=== PATIENT | female | born 1930 | race Caucasian/White ===

== ENCOUNTER → 2016-10-01 | Emergency (ER) | payer OTHER ==
[2016-10-01 09:51] VITALS: BP 137/100; PULSE 89; TEMP 98.3; BMI 22.9
--- NOTE | 2016-10-01 10:35 | PDOC ---
History of Present Illness - General History Source: Patient Exam Limitations: No Limitations - History of Present Illness Initial Comments: 10/01/16 10:42 The patient is an 86 year old female, with a significant past medical history of COPD, asthma, cancer, dementia, GERD, bladder drop, hypertension, hyperlipidemia, depression/anxiety, hypothyroidism, and anemia who presents to the ED [facility] from [facility] for evaluation of shortness of breath. Upon evaluation, patient reports she presents to the ED, because oftoo much sex. She reports intermittent difficulty breathing and dyspnea on exertion. The patient reports her shortness of breath is part of her baseline. The patient denies any chest pain, diaphoresis, or palpitations. Patient is on 3.5 L of O2 in the ED. Patients b.p. in the ED is 137/118. The patient denies any fever, chills, cough, headache, or dizziness. The patient denies any changes in appetite. The patient denies any nausea, vomiting, diarrhea, constipation, or changes in urination patterns. The patient denies any recent travel or sick contacts. Allergies: Levofloxacin Past Surgical History: Lung surgery. Social History: Former smoker(quit 20 years ago). Denies alcohol or drug use. PCP: Dr. Mehta <Chio Iniguez - Last Filed: 10/01/16 12:33> - General History Source: Patient Exam Limitations: No Limitations <Regina Villagran - Last Filed: 10/04/16 08:15> - General Chief Complaint: Shortness of Breath Stated Complaint: SOB Time Seen by Provider: 10/01/16 09:47 Past History <Chio Iniguez - Last Filed: 10/01/16 12:33> - Past Medical History Anemia: No Asthma: Yes Cancer: Yes CVA: No COPD: Yes CHF: No Dementia: Yes GI Disorders: Yes (GERD) Disorders: Yes (BLADDER DROP) HTN: Yes Hypercholesterolemia: Yes 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, anxiety) Suicide Attempt (Hx): No Thyroid Disease: Yes (hypothyroid) - Surgical History Lung Surgery: Yes - Immunization History Td Vaccination: (unknown) Immunization Up to Date: Yes - Psycho/Social/Smoking Cessation Hx Anxiety: No Suicidal Ideation: No Smoking Status: No Smoking History: Unknown if ever smoked Years of Tobacco Use: 40 Have you smoked in the past 12 months: No Number of Cigarettes Smoked Daily: 0 If you are a former smoker, when did you quit?: 20 Cigars Per Day: 0 Information on smoking cessation initiated: No Hx Alcohol Use: No Drug/Substance Use Hx: No Substance Use Type: None Hx Substance Use Treatment: No <Regina Villagran - Last Filed: 10/04/16 08:15> - Past Medical History Allergies/Adverse Reactions: Allergies Allergy/AdvReac Type Severity Reaction Status Date / Time levofloxacin [From Levaquin] AdvReac Unknown Itching Verified 10/01/16 09:49 Home Medications: Ambulatory Orders Albuterol Sulfate [Proventil HFA Inhaler -] 1 - 2 inh PO QID PRN 04/05/16 Alprazolam [Xanax] 0.25 mg PO TID 04/05/16 Aspirin [ASA -] 81 mg PO DAILY 04/05/16 Atorvastatin Ca [Lipitor] 10 mg PO HS 04/05/16 Calcium Carbonate/Vitamin D3 [Oyster Shell 500-Vit D3 200 Tb] 1 each PO BID 10/16 Diltiazem HCl [Diltiazem 24Hr Cd] 240 mg PO DAILY 04/05/16 Docusate Sodium [Colace -] 200 mg PO DAILY 04/05/16 Donepezil HCl [Aricept -] 10 mg PO DAILY 04/05/16 Escitalopram Oxalate [Lexapro -] 10 mg PO DAILY 04/05/16 Fluticasone/Salmeterol [Advair 250-50 Diskus] 1 each IH BID 04/05/16 Gabapentin 300 mg PO BID 04/05/16 Levothyroxine [Synthroid -] 75 mcg PO DAILY 04/05/16 Loratadine [Claritin -] 10 mg PO DAILY 04/05/16 Memantine HCl [Namenda -] 10 mg PO BID 04/05/16 Mycophenolate Mofetil 500 mg PO DAILY 04/05/16 Olopatadine HCl [Pataday] 1 drop OP DAILY 04/05/16 Oxybutynin Chloride [Ditropan Xl] 5 mg PO DAILY 04/05/16 Prednisone 15 mg PO DAILY 04/05/16 Sennosides [Senna] 2 tab PO HS 04/05/16 Tiotropium [place] [Spiriva] 1 inh PO DAILY 04/05/16 Aa/Hydrolyzed Collagen, Whey [Lps Neutral Flavor Liquid] 30 ml PO DAILY Acetaminophen [Tylenol] 650 mg PO QID PRN 10/01/16 Multivitamin-Min/Iron/FA/Vit K [Multi-Day Plus Minerals Tablet] 1 each PO DAILY 10/01/16 Polyethylene Glycol 3350 [Gavilax] 17 gm PO DAILY 10/01/16 Review of Systems - Review of Systems Able to Perform ROS?: Yes Comments:: 10/01/16 10:42 GENERAL/CONSTITUTIONAL: No: fever, chills, weakness, loss of appetite. HEAD, EYES, EARS, NOSE AND THROAT: No: change in vision, ear pain, discharge, sore throat, throat swelling. CARDIOVASCULAR: No: chest pain, lightheadedness, palpitations, syncope RESPIRATORY: Yes:+shortness of breath,+dyspnea on exertion. No: cough, wheezing , hemoptysis, stridor. GASTROINTESTINAL: No: nausea, vomiting, abdominal cramping, diarrhea, rectal bleeding, constipation. GENITOURINARY: No: dysuria, hematuria, frequency, urgency, flank pain. MUSCULOSKELETAL: No: back pain, neck pain, joint pain, muscle swelling or pain SKIN AND BREASTS: No: lesions, pallor, rash or easy bruising. NEUROLOGIC: No: headache, vertigo, paresthesias, weakness ENDOCRINE: No: unexplained weight gain or loss HEMATOLOGIC/LYMPHATIC: No: anemia, easy bleeding, swelling nodes <Iniguez,Giomilsy - Last Filed: 10/01/16 12:33> *Physical Exam - Vital Signs Last Vital Signs Temp Pulse Resp BP Pulse Ox 98.3 F 89 18 137/100 100 10/01/16 09:49 10/01/16 09:49 10/01/16 09:49 10/01/16 09:49 10/01/16 09:49 - Physical Exam Comments: 10/01/16 10:42 GENERAL: The patient is in no acute distress. HEAD: Normal with no signs of trauma. EYES: PERRLA, EOMI, sclera anicteric, conjunctiva clear. ENT: Ears normal, nares patent, oropharynx clear without exudates. Moist mucous membranes. NECK: Normal range of motion, supple without lymphadenopathy, JVD, or masses. LUNGS: Breath sounds equal, clear to auscultation bilaterally. No wheezes, and no crackles. HEART:Regular rate and rhythm, normal S1 and S2 without murmur, rub or gallop. ABDOMEN: Soft, nontender, normoactive bowel sounds. No guarding, no rebound. EXTREMITIES: Normal range of motion, no edema. No clubbing or cyanosis. No erythema, or tenderness. NEUROLOGICAL: Cranial nerves II through XII grossly intact. Normal speech. No focal neurological deficits. MUSCULOSKELETAL: Back non-tender to palpation, no CVA tenderness SKIN: Warm, Dry, normal turgor, no rashes or lesions noted. <IniguezGiomilsy - Last Filed: 10/01/16 12:33> - Vital Signs Last Vital Signs Temp Pulse Resp BP Pulse Ox 98.3 F 89 18 137/100 100 10/01/16 09:49 10/01/16 09:49 10/01/16 09:49 10/01/16 09:49 10/01/16 09:49 <Regina Villagran - Last Filed: 10/04/16 08:15> Heart Score/ECG Review #1 ECG reviewed & interpreted by me at: 12:11 10/01/16 12:11 Twelve-lead EKG was performed and reviewed by me. There is normal sinus rhythm with a normal rate of 89bpm. The axis is normal. The intervals are normal - pr: 170ms, QRS:98ms, QTc:481ms. There are no ST or T wave abnormalities. PAC <Regina Villagran - Last Filed: 10/04/16 08:15> ED Treatment Course - LABORATORY CBC & Chemistry Diagram: 10/01/16 10:05 10/01/16 10:05 - ADDITIONAL ORDERS Additional order review: Laboratory Results 10/01/16 10:35 Puncture Site Right radial ABG pH 7.45 ABG pCO2 at Pt Temp 46.9 H ABG pO2 at Pt Temp 146.0 H D ABG HCO3 31.7 H ABG O2 Sat (Measured) 99.5 H ABG O2 Content 18.6 ABG Base Excess 7.0 H Ricardo Test Positive O2 Delivery Device Nasal o2 Oxygen Flow Rate 4l - RADIOLOGY Radiograph Interpretation: 10/01/16 12:33 EXAM: CXR INTERPRETED BY: Dr. Abraham REVIEWED BY: Dr. Villagran IMPRESSION: Improvement. Better aeration than prior study. If symptoms persist, further imaging with CT may be of help. <Chio Iniguez - Last Filed: 10/01/16 12:33> - LABORATORY CBC & Chemistry Diagram: 10/01/16 10:05 10/01/16 10:05 - RADIOLOGY Radiology Studies Ordered: Category Date Time Status CHEST X-RAY PORTABLE* [RAD] Stat Radiology 10/01/16 09:49 Ordered <Regina Villagran - Last Filed: 10/04/16 08:15> Medical Decision Making - Medical Decision Making 10/01/16 10:34 A portion of this note was documented by scribe services under my direction. I have reviewed the details of the note, within reason, and agree with the documentation with the following case summary and management plan written by me. Nursing documentation reviewed and incorporated into medical decision making This is an 86 yo F h/o COPD on O2, [place] Granulomatosis, Lymphoma, Lung Cancer, Hypothyroidism, HLD, HTN, who was sent from [facility] Pt states nothing happened today but she was sent to the ER Pt states she feels at her baseline She denies chest pain She has shortness of breath but it is not worse than what she typically feels No fevers or chills NO cough Will do labs, cxr 10/01/16 11:21 Laboratory Tests 10/01/16 10/01/16 10:05 10:35 WBC 9.8 D Hgb 13.6 D Hct 40.8 Plt Count 211 Neutrophils % 62.8 D Lymphocytes % 24.1 D ABG pH 7.45 ABG pCO2 at Pt Temp 46.9 H ABG pO2 at Pt Temp 146.0 H D ABG HCO3 31.7 H ABG O2 Sat (Measured) 99.5 H Laboratory Tests 10/01/16 10/01/16 10:05 10:05 Sodium 144 Potassium 3.0 L Chloride 101 Carbon Dioxide 34 H BUN 16 D Creatinine 0.7 Random Glucose 79 D Lactic Acid 0.771 Creatine Kinase 133 Troponin I < 0.02 10/01/16 12:12 CXR: no acute pathology noted Pt has no 10/01/16 12:21 Pt will be discharged back to home Follow up with Dr Mehta Return to the ER for any other concerns or complaints 10/01/16 12:23 <Regina Villagran - Last Filed: 10/04/16 08:15> *DC/Admit/Observation/Transfer - Attestations Scribe Attestion: 10/01/16 10:43 Documentation prepared by Chio Iniguez, acting as medical or surgical instrument maker for Regina Villagran MD. <Chio Iniguez - Last Filed: 10/01/16 12:33> - Discharge Dispostion Admit: No <Regina Villagran - Last Filed: 10/04/16 08:15> Diagnosis at time of Disposition: COPD (chronic obstructive pulmonary disease) Qualifiers: COPD type: unspecified COPD Qualified Code(s): J44.9 - Chronic obstructive pulmonary disease, unspecified - Discharge Dispostion Disposition: [facility] Condition at time of disposition: Good - Referrals Referrals: Kurt Mehta MD [Staff Physician] - - Patient Instructions Printed Discharge Instructions: Chronic Obstructive Pulmonary Disease, DI for Chronic Obstructive Pulmonary Disease Additional Instructions: Ms. Carter Thank you for coming in to the ER today Please return to the ER with any other concerns or complaints Please continue to take medications as prescribed
[2016-10-01 10:36] LABS: ARTERIAL BLD GAS O2 SATURATION 99.5 % (90-98.9); ARTERIAL BLOOD GAS pH 7.45 (7.35-7.45)
[2016-10-01 10:37] LABS: ALLENS TEST POSITIVE; ART PUNCT SITE RIGHT RADIAL; LPM/O2% 4L; PT. ON O2? YES; TYPE OF O2 NASAL O2
[2016-10-01 10:39] LABS: ARTERIAL BLOOD GAS HCO3 31.7 meq/L (22-26)
[2016-10-01 10:42] LABS: BASOPHIL 0.4 % (0-2.0); EOSINOPHIL 2.4 % (0-4.5); MCH 32.5 pg (25.7-33.7); MCHC 33.3 g/dl (32.0-36.0); MEAN CELL VOLUME 97.7 fl (80-96); MEAN PLT VOLUME 8.6 fl (7.5-11.1); NEUTROPHILS 62.8 % (42.8-82.8); PLATELET COUNT 211 K/MM3 (134-434); WHITE BLOOD COUNT 9.8 K/mm3 (4.0-10.0)
[2016-10-01 11:17] LABS: ALBUMIN 3.3 g/dl (3.4-5.0); ANION GAP 9 (8-16); CALCIUM 8.8 mg/dL (8.5-10.1); CO2 34 mmol/L (21-32); GLUCOSE,RANDOM 79 mg/dL (74-106)
[2016-10-01 11:24] LABS: ALK PHOS 62 U/L (45-117); BILIRUBIN,TOTAL 0.5 mg/dL (0.2-1.0); CREATININE 0.7 mg/dL (0.55-1.02); SGOT/AST 23 U/L (15-37); SGPT/ALT 33 U/L (12-78); TOT PROT 6.2 g/dl (6.4-8.2); TROPONIN I < 0.02 ng/ml (0.00-0.05)
--- NOTE | 2016-10-01 12:19 | EKG ---
Test Reason : Blood Pressure : / mmHG Vent. Rate : 089 BPM Atrial Rate : 089 BPM P-R Int : 170 ms QRS Dur : 098 ms QT Int : 396 ms P-R-T Axes : 049 026 025 degrees QTc Int : 481 ms POOR DATA QUALITY, INTERPRETATION MAY BE ADVERSELY AFFECTED SINUS RHYTHM WITH PREMATURE ATRIAL COMPLEXES OTHERWISE NORMAL ECG WHEN COMPARED WITH ECG OF 05-APR-2016 01:44, PREMATURE ATRIAL COMPLEXES ARE NOW PRESENT T WAVE INVERSION LESS EVIDENT IN ANTERIOR LEADS Confirmed by KATIANA HONEYCUTT MD ([id number]) on 10/01/2016 12:18:28 PM Referred By: Confirmed By:KATIANA HONEYCUTT MD
== END ==
LOC: JER 09:36
DX: J44.9 Chronic obstructive pulmonary disease, unspecified (principal); J45.909 Unspecified asthma, uncomplicated; I10 Essential (primary) hypertension; F03.90 Unspecified dementia, unspecified severity, without behavioral disturbance, psychotic disturbance, mood disturbance, and anxiety; K21.9 Gastro-esophageal reflux disease without esophagitis; F41.8 Other specified anxiety disorders; E03.9 Hypothyroidism, unspecified
CPT/HCPCS: 36415; 36600; 71010-TC; 80053; 82550; 82803; 83605; 84484; 85025; 87040; 93005; 93010; 99283-25

== ENCOUNTER 2016-12-24 20:29 | Inpatient (IN) | payer OTHER ==
--- NOTE | 2016-12-24 20:44 | PDOC ---
History of Present Illness - General History Source: Patient Exam Limitations: No Limitations - History of Present Illness Initial Comments: 12/24/16 20:58 The patient is a 86 year old female with a significant past medical history of COPD (on home oxygen), asthma, cancer, dementia, GERD, bladder drop, HTN, HLD, depression/anxiety, hypothyroidism, and anemia who presents to the ED [facility] from [facility] for evaluation of shortness of breath for several days. Upon evaluation to the ED patient reports she came into the ED because of too much sex. Patient also reports she cannot breath and denies a cough. Patient states she was put on steroids over a month ago for similar symptoms. Denies fever or chills. Denies chest pain. Denies abdominal pain, nausea, vomiting, or diarrhea. Denies any other symptoms. Company Marker: Dr. Corona PMD: Dr. Mehta <Dhruv Browning - Last Filed: 12/25/16 00:17> <Kieran Garcia - Last Filed: 12/25/16 01:28> - General Stated Complaint: SOB Time Seen by Provider: 12/24/16 20:41 Past History <Dhruv Browning - Last Filed: 12/25/16 00:17> - Past Medical History Anemia: No Asthma: Yes Cancer: Yes CVA: No COPD: Yes CHF: No Dementia: Yes GI Disorders: Yes (GERD) Disorders: Yes (BLADDER DROP) HTN: Yes Hypercholesterolemia: Yes 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, anxiety) Suicide Attempt (Hx): No Thyroid Disease: Yes (hypothyroid) - Surgical History Lung Surgery: Yes - Immunization History Td Vaccination: (unknown) Immunization Up to Date: Yes - Psycho/Social/Smoking Cessation Hx Anxiety: No Suicidal Ideation: No Smoking Status: No Smoking History: Unknown if ever smoked Years of Tobacco Use: 40 Have you smoked in the past 12 months: No Number of Cigarettes Smoked Daily: 0 If you are a former smoker, when did you quit?: 20 Cigars Per Day: 0 Hx Alcohol Use: No Drug/Substance Use Hx: No Substance Use Type: None Hx Substance Use Treatment: No <Kieran Garcia - Last Filed: 12/25/16 01:28> - Past Medical History Allergies/Adverse Reactions: Allergies Allergy/AdvReac Type Severity Reaction Status Date / Time levofloxacin [From Levaquin] AdvReac Unknown Itching Verified 12/24/16 22:36 Home Medications: Ambulatory Orders Albuterol Sulfate [Proventil HFA Inhaler -] 1 - 2 inh PO QID PRN 04/05/16 Alprazolam [Xanax] 0.25 mg PO TID 04/05/16 Aspirin [ASA -] 81 mg PO DAILY 04/05/16 Atorvastatin Ca [Lipitor] 10 mg PO HS 04/05/16 Calcium Carbonate/Vitamin D3 [Oyster Shell 500-Vit D3 200 Tb] 1 each PO BID 10/16 Diltiazem HCl [Diltiazem 24Hr Cd] 240 mg PO DAILY 04/05/16 Docusate Sodium [Colace -] 200 mg PO DAILY 04/05/16 Donepezil HCl [Aricept -] 10 mg PO DAILY 04/05/16 Escitalopram Oxalate [Lexapro -] 10 mg PO DAILY 04/05/16 Fluticasone/Salmeterol [Advair 250-50 Diskus] 1 each IH BID 04/05/16 Gabapentin 300 mg PO BID 04/05/16 Levothyroxine [Synthroid -] 75 mcg PO DAILY 04/05/16 Loratadine [Claritin -] 10 mg PO DAILY 04/05/16 Memantine HCl [Namenda -] 10 mg PO BID 04/05/16 Mycophenolate Mofetil 500 mg PO DAILY 04/05/16 Olopatadine HCl [Pataday] 1 drop OP DAILY 04/05/16 Oxybutynin Chloride [Ditropan Xl] 5 mg PO DAILY 04/05/16 Prednisone 15 mg PO DAILY 04/05/16 Sennosides [Senna] 2 tab PO HS 04/05/16 Tiotropium [place] [Spiriva] 1 inh PO DAILY 04/05/16 Aa/Hydrolyzed Collagen, Whey [Lps Neutral Flavor Liquid] 30 ml PO DAILY Acetaminophen [Tylenol] 650 mg PO QID PRN 10/01/16 Multivitamin-Min/Iron/FA/Vit K [Multi-Day Plus Minerals Tablet] 1 each PO DAILY 10/01/16 Polyethylene Glycol 3350 [Gavilax] 17 gm PO DAILY 10/01/16 Review of Systems - Review of Systems Able to Perform ROS?: Yes Comments:: 12/24/16 20:59 GENERAL/CONSTITUTIONAL: No fever or chills. No weakness. HEAD, EYES, EARS, NOSE AND THROAT: No change in vision. No ear pain or discharge. No sore throat. CARDIOVASCULAR: No chest pain or shortness of breath. RESPIRATORY: + shortness of breath. No cough, wheezing, or hemoptysis. GASTROINTESTINAL: No nausea, vomiting, diarrhea or constipation. GENITOURINARY: No dysuria, frequency, or change in urination. MUSCULOSKELETAL: No joint or muscle swelling or pain. No neck or back pain. SKIN: No rash NEUROLOGIC: No headache, vertigo, loss of consciousness, or change in strength/ sensation. ENDOCRINE: No increased thirst. No abnormal weight change. HEMATOLOGIC/LYMPHATIC: No anemia, easy bleeding, or history of blood clots. ALLERGIC/IMMUNOLOGIC: No hives or skin allergy. All Other Systems: Reviewed and Negative <Dhruv Browning - Last Filed: 12/25/16 00:17> *Physical Exam - Vital Signs Last Vital Signs Temp Pulse Resp BP Pulse Ox 98.2 F 87 17 132/82 100 12/24/16 20:42 12/24/16 20:42 12/24/16 20:42 12/24/16 20:42 12/24/16 20:42 - Physical Exam Comments: 12/24/16 20:59 GENERAL: Awake, alert, and fully oriented, in no acute distress HEAD: No signs of trauma EYES: PERRLA, EOMI, sclera anicteric, conjunctiva clear ENT: Auricles normal inspection, hearing grossly normal, nares patent, oropharynx clear without exudates. Moist mucosa NECK: Normal ROM, supple, no lymphadenopathy, JVD, or masses LUNGS: + really coarse rhonchi posteriorly in all lung escobar, anteriorly normal breath sounds. No conversational dyspnea, comfortable appearing. Does not appear to have shortness of breath upon evaluation but does present with a loose cough. HEART: Regular rate and rhythm, normal S1 and S2, no murmurs, rubs or gallops ABDOMEN: Soft, nontender, normoactive bowel sounds. No guarding, no rebound. No masses EXTREMITIES: Normal range of motion, no edema. No clubbing or cyanosis. No cords, erythema, or tenderness NEUROLOGICAL: Normal speech SKIN: Warm, Dry, normal turgor, no rashes or lesions noted. <NallelySeancara - Last Filed: 12/25/16 00:17> Heart Score/ECG Review #1 12/25/16 00:18 Sinus rhythm with premature atrial complexes Otherwise normal ECG Vent rate 85 bpm MT interval 190 ms Normal axes Reviewed and Interpreted by: Dr. Garcia <Browning,Seancara - Last Filed: 12/25/16 00:17> ED Treatment Course - LABORATORY CBC & Chemistry Diagram: 12/24/16 21:35 12/24/16 21:35 <NallelySeancara - Last Filed: 12/25/16 00:17> - LABORATORY CBC & Chemistry Diagram: 12/24/16 21:35 12/24/16 21:35 <Kieran Garcia - Last Filed: 12/25/16 01:28> Medical Decision Making - Medical Decision Making 12/24/16 22:47 Chest X-ray showed Left lower lobe and right lower lobe pneumonia . will be given IV antibiotics, and will be admitted to the hospital. Case discussed with Dr. Moss at 22:45. <NallelyElpidiomaría - Last Filed: 12/25/16 00:17> *DC/Admit/Observation/Transfer - Attestations Scribe Attestion: 12/24/16 20:59 Documentation prepared by Dhruv Browning, acting as biomedical engineering aide for Kieran Garcia MD <Browning,Seancara - Last Filed: 12/25/16 00:17> - Discharge Dispostion Admit: Yes - Attestations Physician Attestion: 12/24/16 20:44 I, Dr. Kieran Garcia, attest that this document has been prepared under my direction and personally reviewed by me in its entirety. I further attest, that it accurately reflects all work, treatment, procedures and medical decision -making performed by me. <Kieran Garcia - Last Filed: 12/25/16 01:28> Diagnosis at time of Disposition: COPD with acute exacerbation Right lower lobe pneumonia Qualifiers: Pneumonia type: due to unspecified organism Qualified Code(s): J18.1 - Lobar pneumonia, unspecified organism Left lower lobe pneumonia Qualifiers: Pneumonia type: aspiration pneumonia Aspiration pneumonia type: unspecified Qualified Code(s): J69.0 - Pneumonitis due to inhalation of food and vomit COPD (chronic obstructive pulmonary disease) Qualifiers: COPD type: COPD with acute exacerbation Qualified Code(s): J44.1 - Chronic obstructive pulmonary disease with (acute) exacerbation Dementia Qualifiers: Dementia type: Alzheimer's disease Alzheimer's disease onset: unspecified onset Dementia behavioral disturbance: without behavioral disturbance Qualified Code(s): G30.9 - Alzheimer's disease, unspecified; F02.80 - Dementia in other diseases classified elsewhere without behavioral disturbance - Discharge Dispostion Condition at time of disposition: Improved - Referrals Referrals: Kurt Mehta MD [Primary Care Provider] - - Patient Instructions
[2016-12-24] MEDS ORDERED: methylPREDNISolone NA SUCC 125 MG/2 ML VIAL IVPB ONE ×2 (20:56→22:58)
[2016-12-24] MEDS ORDERED: ALBUTEROL SO4 2.5/IPRATROPIUM 0.5 INH SOL 3 ML VIAL.NEB. NEB ONE ×2 (20:56→21:10)
[2016-12-24] MEDS ORDERED: ALBUTEROL SO4 0.083% IH SOL 2.5 MG/3 ML VIAL.NEB. NEB ONE ×2 (20:56→21:10)
[2016-12-24] MEDS ORDERED: methylPREDNISolone NA SUCC 125 MG/2 ML VIAL ONE (21:11)
[2016-12-24 21:51] LABS: BASOPHIL 0.3 % (0-2.0); EOSINOPHIL 0.1 % (0-4.5); MCH 31.3 pg (25.7-33.7); MCHC 32.6 g/dl (32.0-36.0); MEAN CELL VOLUME 95.9 fl (80-96); MEAN PLT VOLUME 8.7 fl (7.5-11.1); NEUTROPHILS 76.4 % (42.8-82.8); PLATELET COUNT 236 K/MM3 (134-434); RDW 14.3 % (11.6-15.6)
[2016-12-24 22:03] LABS: INR 0.98 (0.82-1.09); PROTHROMBIN TIME (PATIENT) 10.8 SEC (9.98-11.88)
[2016-12-24 22:13] LABS: ALBUMIN 3.4 g/dl (3.4-5.0); ANION GAP 6 (8-16); BILIRUBIN,TOTAL 0.3 mg/dL (0.2-1.0); CALCIUM 9.1 mg/dL (8.5-10.1); CO2 34 mmol/L (21-32); CREATININE 0.9 mg/dL (0.55-1.02); GLUCOSE,RANDOM 101 mg/dL (74-106); SGOT/AST 20 U/L (15-37); SGPT/ALT 26 U/L (12-78); TOT PROT 6.5 g/dl (6.4-8.2)
[2016-12-24 22:16] LABS: ALK PHOS 108 U/L (45-117); TROPONIN I < 0.02 ng/ml (0.00-0.05)
[2016-12-24] MEDS ORDERED: VANCOMYCIN 1 GRAM (PRE-DOCKED) 1,000 MG/250 ML BAG IVPB ONE (22:35)
[2016-12-24] MEDS ORDERED: PIPERACILLIN/TAZOB 3.375 GM/50 ML PRE-DOCKED IV ONE (22:35)
[2016-12-24] MEDS ORDERED: VANCOMYCIN 1 GRAM (PRE-DOCKED) 250 ML IVPB ONE (23:14)
[2016-12-24] MEDS ORDERED: PIPERACILLIN/TAZOB 3.375 GM 50 ML IVPB ONE (23:15)
--- NOTE | 2016-12-25 00:35 | HP ---
CHIEF COMPLAINT: SOB, "not feeling right" PCP: Dr. Mehta HISTORY OF PRESENT ILLNESS: 86 y/o F w/PMH of COPD (on home oxygen), asthma, lymphoma, dementia, GERD, bladder drop, HTN, HLD, depression/anxiety, hypothyroidism, and anemia presents to the ER via ambulance from [facility] for SOB. Pt states she just didn't feel right and had SOB today. She states there may have been sick contacts at the living facility. She denies cough, sputum production, [place], light-headedness, runny nose, facial pressure, sore throat, CP, abd pain, diarrhea, blood in stool, fevers, chills, nausea, vomiting, dysuria, blood in urine, recent travel. ER course was notable for: (1) solumedrol, duoneb, alb neb, vanc, zosyn (2) cxr (3) Recent Travel: denies PAST MEDICAL HISTORY: COPD (on home oxygen), asthma, lymphoma, dementia, GERD, bladder drop, HTN, HLD, depression/anxiety, hypothyroidism, and anemia PAST SURGICAL HISTORY: Lymph node resection (from lymphoma) Social History: Smoking: quit 45 years ago Alcohol: denies Drugs: denies Family History: Mother: Stomach ca Allergies levofloxacin [From Levaquin] Adverse Reaction (Unknown, Verified 12/24/16 22:36) Itching HOME MEDICATIONS: Home Medications Medication Instructions Recorded Albuterol Sulfate [Proventil HFA 1 - 2 inh PO QID PRN 04/05/16 Inhaler -] Alprazolam [Xanax] 0.25 mg PO TID 04/05/16 Aspirin [ASA -] 81 mg PO DAILY 04/05/16 Atorvastatin Ca [Lipitor] 10 mg PO HS 04/05/16 Calcium Carbonate/Vitamin D3 1 each PO BID 04/05/16 [Oyster Shell 500-Vit D3 200 Tb] Diltiazem HCl [Diltiazem 24Hr Cd] 240 mg PO DAILY 04/05/16 Docusate Sodium [Colace -] 200 mg PO DAILY 04/05/16 Donepezil HCl [Aricept -] 10 mg PO DAILY 04/05/16 Escitalopram Oxalate [Lexapro -] 10 mg PO DAILY 04/05/16 Fluticasone/Salmeterol [Advair 1 each IH BID 04/05/16 250-50 Diskus] Gabapentin 300 mg PO BID 04/05/16 Levothyroxine [Synthroid -] 75 mcg PO DAILY 04/05/16 Loratadine [Claritin -] 10 mg PO DAILY 04/05/16 Memantine HCl [Namenda -] 10 mg PO BID 04/05/16 Mycophenolate Mofetil 500 mg PO DAILY 04/05/16 Olopatadine HCl [Pataday] 1 drop OP DAILY 04/05/16 Oxybutynin Chloride [Ditropan Xl] 5 mg PO DAILY 04/05/16 Prednisone 15 mg PO DAILY 04/05/16 Sennosides [Senna] 2 tab PO HS 04/05/16 Tiotropium [place] [Spiriva] 1 inh PO DAILY 04/05/16 Aa/Hydrolyzed Collagen, Whey [Lps 30 ml PO DAILY 10/01/16 Neutral Flavor Liquid] Acetaminophen [Tylenol] 650 mg PO QID PRN 10/01/16 Multivitamin-Min/Iron/FA/Vit K 1 each PO DAILY 10/01/16 [Multi-Day Plus Minerals Tablet] Polyethylene Glycol 3350 [Gavilax] 17 gm PO DAILY 10/01/16 REVIEW OF SYSTEMS CONSTITUTIONAL: Absent: fever, chills, diaphoresis, generalized weakness HEENT: Absent: rhinorrhea, nasal congestion, throat pain, visual changes CARDIOVASCULAR: Absent: chest pain, syncope, palpitations, irregular heart rate, lightheadedness , peripheral edema RESPIRATORY: +SOB Absent: cough, dyspnea with exertion, orthopnea GASTROINTESTINAL: Absent: abdominal pain, nausea, vomiting, diarrhea, hematochezia GENITOURINARY: Absent: dysuria, frequency, hematuria MUSCULOSKELETAL: Absent: myalgia, arthralgia, joint swelling, back pain, neck pain NEUROLOGIC: Absent: headache, dizziness PHYSICAL EXAMINATION Vital Signs - 24 hr 12/24/16 12/24/16 20:40 20:42 Temperature 98.2 F Pulse Rate 100 H 87 Respiratory 17 Rate Blood Pressure 132/82 O2 Sat by Pulse 100 100 Oximetry (%) GENERAL: Awake, alert, and fully oriented, in no acute distress. HEAD: Normal with no signs of trauma. EYES: extraocular movements intact, sclera anicteric, conjunctiva clear. No lid lag. EARS, NOSE, THROAT: Ears normal, nares patent, oropharynx clear without exudates. Moist mucous membranes. Tongue midline. NECK: Normal range of motion, supple LUNGS: +R lung mid to lower lung escobar with coarse breath sounds. HEART: Regular rate and rhythm, normal S1 and S2. ABDOMEN: Soft, nontender, not distended, normoactive bowel sounds, no guarding, no rebound, no masses. No hepatomegaly or splenomegaly. MUSCULOSKELETAL: No CVA tenderness. LOWER EXTREMITIES: 2+ pulses, warm, well-perfused. No calf tenderness. No peripheral edema. NEUROLOGICAL: Normal speech. Steady gait with help (daughter helping her walk). PSYCHIATRIC: Cooperative. Good eye contact. Appropriate mood and affect. SKIN: Warm, dry Laboratory Results - last 24 hr 12/24/16 12/24/16 12/24/16 21:35 21:35 21:35 WBC 12.0 H RBC 4.05 Hgb 12.7 Hct 38.9 MCV 95.9 MCHC 32.6 RDW 14.3 Plt Count 236 MPV 8.7 Neutrophils % 76.4 D Lymphocytes % 14.4 D Monocytes % 8.8 Eosinophils % 0.1 D Basophils % 0.3 INR 0.98 Sodium 142 Potassium 3.6 Chloride 102 Carbon Dioxide 34 H Anion Gap 6 L BUN 21 H D Creatinine 0.9 D Creat Clearance w eGFR 59.09 Random Glucose 101 D Calcium 9.1 Total Bilirubin 0.3 D AST 20 ALT 26 D Alkaline Phosphatase 108 D Creatine Kinase 89 Troponin I < 0.02 B-Natriuretic Peptide 198.48 Total Protein 6.5 Albumin 3.4 Imaging: CXR: Right mid and lower lobe infiltrates suggestive of PNA; pending official report Active Medications Albuterol/Ipratropium (Duoneb -) 1 amp NEB Q6H PRN PRN Reason: SHORT OF BREATH/WHEEZING Aspirin (Asa -) 81 mg PO DAILY [place] Atorvastatin Calcium (Lipitor -) 10 mg PO HS [place] Diltiazem HCl (Cardizem Cd -) 240 mg PO DAILY BEVERLY Docusate Sodium (Colace -) 200 mg PO DAILY BEVER[place] Donepezil HCl (Aricept -) 10 mg PO DAILY BEVER[place] Escitalopram Oxalate (Lexapro -) 10 mg PO DAILY BEVER[place] Gabapentin (Neurontin -) 300 mg PO BID BEVERLY Ceftriaxone Sodium 1 gm/ (Dextrose) 100 mls @ 200 mls/hr IVPB DAILY BEVERLY Azithromycin 500 mg/ Dextrose 250 mls @ 250 mls/hr IVPB DAILY BEVER[facility] Levothyroxine Sodium (Synthroid -) 75 mcg PO DAILY BEVERLY Loratadine (Claritin -) 10 mg PO DAILY BEVER[place] Memantine (Namenda -) 10 mg PO BID BEVER[place] Mycophenolate Mofetil (Cellcept -) 500 mg PO DAILY BEVERLY Non-Formulary Medication (Fluticasone/Salmeterol [Advair 250-50 Diskus]) 1 each IH BID BEVERLY Prednisone (Deltasone -) 15 mg PO DAILY BEVER[facility] Tiotropium [place] (Spiriva -) 1 puff IH DAILY [facility] ASSESSMENT/PLAN: 86 y/o F w/PMH of COPD (on home oxygen), asthma, lymphoma, dementia, GERD, bladder drop, HTN, HLD, depression/anxiety, hypothyroidism, and anemia presents to the ER via ambulance from [facility] for SOB. Found to have R sided PNA on CXR. -Community acquired PNA in right middle/lower lobes -No IV Abx in the last 3 months -CURB65 score 2 -will order Ceftriaxone 1g IV qd and Azithromycin 500 mg IV qd -f/u SpCx, UAg for PNA, mycoplasma IgM -COPD/Asthma -given 125 mg IV solumedrol in ER -no wheezing at this time, will not continue IV steroids -continue with home dose of prednisone 15 mg po qd -c/w advair, spiriva, loratadine 10 mg po qd -duonebs q6h prn for sob -O2 supplementation to keep O2 sat >90 -Leukocytosis -secondary to PNA -f/u BCx, SpCx, UAg for PNA, UA -ceftriaxone 1g iv qd, azithromycin 500 mg iv qd -Hypothyroidism -c/w synthroid 75 mcg po qd -Dementia -c/w namenda 10 mg po bid, aricept 10 mg po qd -HTN -c/w diltiazem 240 mg po qd -CAD -c/w ASA 81 mg po qd, lipitor 10 mg po qhs -HLD -cw lipitor 10 mg po qhs -Depression/anxiety -c/w lexapro 10 mg po qd -DVT ppx -SCDs, ambulate early -FEN -no fluids for now -monitor electrolytes -Cardiac diet -Dispo: -admit to m/s Visit type - Emergency Visit Emergency Visit: Yes ED Registration Date: 12/24/16 Care time: The patient presented to the Emergency Department on the above date and was hospitalized for further evaluation of their emergent condition. - New Patient This patient is new to me today: Yes Date on this admission: 12/25/16 - Critical Care Critical Care patient: No
[2016-12-25] MEDS ORDERED: ALBUTEROL SO4 2.5/IPRATROPIUM 0.5 INH SOL 3 ML VIAL.NEB. NEB PRN (00:55)
[2016-12-25] MEDS ORDERED: GABAPENTIN 100 MG CAPSULE (FP) ONE (01:08)
[2016-12-25] MEDS: GABAPENTIN 300 MG CAPSULE (FP) PO SCH ×3 (01:11→22:26)
--- NOTE | 2016-12-25 01:29 | PN ---
Teaching Attending Note Name of Resident: Woody Segura ATTENDING PHYSICIAN STATEMENT I saw and evaluated the patient. I reviewed chart, imaging, data. I reviewed the resident's note and discussed the case with the resident. I agree with the resident's findings and plan as documented with modifications in attending note. HPI 86 year old female with a significant past medical history of COPD (on home oxygen), asthma, cancer, dementia, GERD, bladder drop, HTN, HLD, depression/ anxiety, hypothyroidism, and anemia presented to the ED BIBA from [facility] for evaluation of shortness of breath for several days. .Received vancomycin and pip/tazo in ER for pneumonia. No sick contacts. No Recent travels. Subjective Denied significant cough. SOB has improved since arrival to ER OBJECTIVE: Last Vital Signs Temp Pulse Resp BP Pulse Ox 98.5 F 90 17 137/85 100 12/25/16 01:13 12/25/16 01:13 12/25/16 01:13 12/25/16 01:13 12/25/16 01:13 GENERAL: Awake, alert, and oriented, answering questions, NAD HEAD: No signs of trauma, normocephalic EYES: PERRLA, sclera anicteric, conjunctiva clear, wears eye glasses NECK: supple, no lymphadenopathy LUNGS: + coarse rhonchi posteriorly in right lower and middle lobes on posterior auscultation. No apparent SOB. Speaks in full sentences. HEART: Regular rate and rhythm, normal S1 and S2, no murmurs, rubs or gallops ABDOMEN: Soft, nontender, normoactive bowel sounds. No guarding, no rebound. EXTREMITIES: Normal range of motion, no edema. No clubbing or cyanosis. No cords, erythema, or tenderness NEUROLOGICAL: Normal speech SKIN: Warm, Dry, normal turgor, no rashes or lesions noted. Laboratory Results - last 24 hr 12/24/16 12/24/16 12/24/16 21:35 21:35 21:35 WBC 12.0 H RBC 4.05 Hgb 12.7 Hct 38.9 MCV 95.9 MCHC 32.6 RDW 14.3 Plt Count 236 MPV 8.7 Neutrophils % 76.4 D Lymphocytes % 14.4 D Monocytes % 8.8 Eosinophils % 0.1 D Basophils % 0.3 INR 0.98 Sodium 142 Potassium 3.6 Chloride 102 Carbon Dioxide 34 H Anion Gap 6 L BUN 21 H D Creatinine 0.9 D Creat Clearance w eGFR 59.09 Random Glucose 101 D Calcium 9.1 Total Bilirubin 0.3 D AST 20 ALT 26 D Alkaline Phosphatase 108 D Creatine Kinase 89 Troponin I < 0.02 B-Natriuretic Peptide 198.48 Total Protein 6.5 Albumin 3.4 CXR reviewed- appears to have new infiltrates in right lower and middle lobes ASSESSMENT AND PLAN: #Community acquired PNA in an 86yo female with multiple medical problems. Evidence of right lower and middle lobe infiltrate on CXR along with shortness of breath, leukocytosis. Unlikely to be COPD exacerbation as patient is not wheezing and does not appear to have prolonged expiratory phase of breathing. CURB65 score is at least 2. Troponin is negative. Should r/o legionella and mycoplasma pneumonia. -admit to med/surg -send sputum culture -blood cultures x2 -urine legionella ag -sputum culture for legionella -mycoplasma IgM -ceftriaxone 1g IV daily -azithromycin 500mg IV daily -ID consult for antibiotic approval -supplemental oxygen via nasal cannula #Chronic medical problems -will restart on home medications, refer to resident note for details #DVT ppx -low risk -SCDs #Diet -Low sodium, heart-healthy diet
[2016-12-25 02:29] VITALS: BMI 24.1
[2016-12-25 02:48] LABS: URINE APPEARANCE CLEAR; URINE BILIRUBIN NEGATIVE (NEGATIVE); URINE COLOR YELLOW; URINE GLUCOSE (UA) 2+ (NEGATIVE); URINE KETONE NEGATIVE (NEGATIVE); URINE NITRITE NEGATIVE (NEGATIVE); URINE UROBILINOGEN NEGATIVE E.U./dl (0.2-1.0)
[2016-12-25 02:52] LABS: URINE BLOOD 1+ (NEGATIVE); URINE LEUK ESTERASE 1+ (NEGATIVE); URINE PROTEIN 1+ (NEGATIVE)
[2016-12-25 03:00] LABS: URINE BACTERIA FEW /hpf (NONE SEEN); URINE HYALINE CAST 1 /lpf; URINE MUCUS RARE; URINE RBC 12 /hpf (0-3); URINE WBC 17 /hpf (3-5)
[2016-12-25] MEDS: LEVOTHYROXINE NA 75 MCG TABLET (FP) PO SCH (06:17)
[2016-12-25 09:02] LABS: BASOPHIL 0.1 % (0-2.0); MCH 31.7 pg (25.7-33.7); MEAN CELL VOLUME 96.1 fl (80-96); MEAN PLT VOLUME 8.5 fl (7.5-11.1); NEUTROPHILS 89.5 % (42.8-82.8); PLATELET COUNT 253 K/MM3 (134-434); RDW 14.3 % (11.6-15.6); WHITE BLOOD COUNT 11.1 K/mm3 (4.0-10.0)
[2016-12-25 09:15] LABS: ANION GAP 9 (8-16); CALCIUM 9.3 mg/dL (8.5-10.1); CO2 33 mmol/L (21-32); CREATININE 1.1 mg/dL (0.55-1.02); GLUCOSE,RANDOM 152 mg/dL (74-106)
[2016-12-25] MEDS ORDERED: PT OWN MED DRAWER 7, Y5N ONE ×4 (09:39→22:30)
[2016-12-25] MEDS: MEMANTINE HCL 10 MG TABLET (FP) PO SCH ×2 (09:43→22:25)
[2016-12-25] MEDS: LORATADINE 10 MG TABLET PO SCH (09:43)
[2016-12-25] MEDS: ASPIRIN 81 MG CHEWABLE TABLETS PO SCH (09:43)
[2016-12-25] MEDS: ESCITALOPRAM OXALATE 10 MG TABLET (FP) PO SCH (09:44)
[2016-12-25] MEDS: DOCUSATE SODIUM 100 MG CAPSULE (FP) PO SCH (09:44)
[2016-12-25] MEDS: DONEPEZIL HCL 10 MG TABLET (FP) PO SCH (09:44)
[2016-12-25] MEDS: CEFTRIAXONE 50 ML IVPB SCH (09:50)
[2016-12-25] MEDS ORDERED: predniSONE 5 MG TABLET (UD) PO SCH (10:00)
[2016-12-25] MEDS: AZITHROMYCIN IVPB 250 ML IVPB SCH (10:08)
[2016-12-25] MEDS: MYCOPHENOLATE MOFETIL 500 MG TABLET PO SCH (11:00)
[2016-12-25] MEDS: BUDESONIDE/FORMETEROL FUMARATE 80/4.5 mcg INHALER IH SCH ×2 (11:00→22:26)
[2016-12-25] MEDS: ACLIDINIUM BROMIDE 400 MCG/INH AERO.POWD IH SCH ×2 (11:01→22:33)
--- NOTE | 2016-12-25 12:14 | PN ---
Progress Note (short form) - Note Progress Note: Patient seen and examined as a follow up No acute events Denies SOB and reports improvement NO wheezing will continue current management Visit type - Emergency Visit Emergency Visit: Yes ED Registration Date: 12/24/16 Care time: The patient presented to the Emergency Department on the above date and was hospitalized for further evaluation of their emergent condition. - New Patient This patient is new to me today: Yes Date on this admission: 12/25/16 - Critical Care Critical Care patient: No - Discharge Referral Referred to [facility] Med P.C.: No
--- NOTE | 2016-12-25 13:54 | CON.PULM ---
Consult Consult Specialty:: PULM/CCM Referred by:: MARJORIE Reason for Consultation:: SOB - History of Present Illness Chief Complaint: SOB History of Present Illness: 86 F, COPD on home oxygen, asthma, lymphoma, dementia, GERD, bladder issues, HTN , HLD, depression/anxiety, hypothyroidism, and anemia. Multiple admissions for AE of COPD. Sent from [facility] for worsening SOB. (+) increased cough and mucous production. No travel history. No apparent sick contact. 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: Dementia Cardio/Vascular: Yes: Pulmonary Hypertension, HTN, Hyperlipdemia Pulmonary: Yes: COPD, O2 Dependent Psych: Yes: Anxiety, Panic Musculoskeletal: Yes: Other (h/o of foot drop) - Past Surgical History Past Surgical History: Yes: Thoracotomy - Alcohol/Substance Use Hx Alcohol Use: No - Smoking History Smoking history: Former smoker Have you smoked in the past 12 months: No Aproximately how many cigarettes per day: 0 If you are a former smoker, when did you quit?: 45 years ago - Social History Usual Living Arrangement: Assisted Living Home Medications - Allergies Allergies/Adverse Reactions: Allergies Allergy/AdvReac Type Severity Reaction Status Date / Time levofloxacin [From Levaquin] AdvReac Unknown Itching Verified 12/24/16 22:36 - Home Medications Home Medications: Ambulatory Orders Albuterol Sulfate [Proventil HFA Inhaler -] 1 - 2 inh PO QID PRN 04/05/16 Alprazolam [Xanax] 0.25 mg PO TID 04/05/16 Aspirin [ASA -] 81 mg PO DAILY 04/05/16 Atorvastatin Ca [Lipitor] 10 mg PO HS 04/05/16 Calcium Carbonate/Vitamin D3 [Oyster Shell 500-Vit D3 200 Tb] 1 each PO BID 10/16 Diltiazem HCl [Diltiazem 24Hr Cd] 240 mg PO DAILY 04/05/16 Docusate Sodium [Colace -] 200 mg PO DAILY 04/05/16 Donepezil HCl [Aricept -] 10 mg PO DAILY 04/05/16 Escitalopram Oxalate [Lexapro -] 10 mg PO DAILY 04/05/16 Fluticasone/Salmeterol [Advair 250-50 Diskus] 1 each IH BID 04/05/16 Gabapentin 300 mg PO BID 04/05/16 Levothyroxine [Synthroid -] 75 mcg PO DAILY 04/05/16 Loratadine [Claritin -] 10 mg PO DAILY 04/05/16 Memantine HCl [Namenda -] 10 mg PO BID 04/05/16 Mycophenolate Mofetil 500 mg PO DAILY 04/05/16 Olopatadine HCl [Pataday] 1 drop OP DAILY 04/05/16 Oxybutynin Chloride [Ditropan Xl] 5 mg PO DAILY 04/05/16 Prednisone 15 mg PO DAILY 04/05/16 Sennosides [Senna] 2 tab PO HS 04/05/16 Tiotropium [place] [Spiriva] 1 inh PO DAILY 04/05/16 Aa/Hydrolyzed Collagen, Whey [Lps Neutral Flavor Liquid] 30 ml PO DAILY Acetaminophen [Tylenol] 650 mg PO QID PRN 10/01/16 Multivitamin-Min/Iron/FA/Vit K [Multi-Day Plus Minerals Tablet] 1 each PO DAILY 10/01/16 Polyethylene Glycol 3350 [Gavilax] 17 gm PO DAILY 10/01/16 Family Disease History - Family Disease History Family Disease History: Heart Disease: Father, Sister Review of Systems - Review of Systems Constitutional: reports: Malaise, Weakness. denies: Chills, Fever, Night Sweats Eyes: reports: No Symptoms HENT: reports: No Symptoms Neck: reports: No Symptoms Cardiovascular: reports: Shortness of Breath. denies: Chest Pain, Edema, Palpitations Respiratory: reports: Cough. denies: Hemoptysis, SOB, SOB on Exertion, Wheezing Gastrointestinal: reports: No Symptoms Genitourinary: reports: No Symptoms Breasts: reports: No Symptoms Reported Musculoskeletal: reports: No Symptoms Integumentary: reports: No Symptoms Neurological: reports: No Symptoms Endocrine: reports: No Symptoms Hematology/Lymphatic: reports: No Symptoms Psychiatric: reports: No Symptoms Physical Exam Vital Sings: Vital Signs Temperature 97.8 F 12/25/16 10:12 Pulse Rate 89 12/25/16 10:12 Respiratory Rate 20 12/25/16 10:12 Blood Pressure 150/84 12/25/16 10:12 O2 Sat by Pulse Oximetry (%) 98 12/25/16 09:00 Constitutional: Yes: No Distress, Calm Eyes: Yes: Conjunctiva Clear, EOM Intact HENT: Yes: Atraumatic, Normocephalic Neck: Yes: Supple, Trachea Midline Cardiovascular: Yes: Regular Rate and Rhythm Respiratory: Yes: On Nasal O2, Rhonchi, Wheezes. No: Accessory Muscle Use, Rales, Stridor, Tachypnea ...Inspection: Yes: WNL ...Clubbing: No Gastrointestinal: Yes: Normal Bowel Sounds, Soft Renal/: Yes: WNL Musculoskeletal: Yes: WNL Extremities: Yes: WNL Edema: No Peripheral Pulses WNL: Yes Integumentary: Yes: WNL Neurological: Yes: Alert, Oriented ...Motor Strength: WNL Psychiatric: Yes: Alert Labs: CBC, BMP 12/25/16 08:00 12/25/16 08:00 Imaging - Results Chest X-ray: Report Reviewed, Image Reviewed Problem List - Problems (1) Anxiety Code(s): F41.9 - ANXIETY DISORDER, UNSPECIFIED (2) COPD with acute exacerbation Code(s): J44.1 - CHRONIC OBSTRUCTIVE PULMONARY DISEASE W (ACUTE) EXACERBATION (3) Dementia Code(s): F03.90 - UNSPECIFIED DEMENTIA WITHOUT BEHAVIORAL DISTURBANCE Qualifiers: Dementia type: Alzheimer's disease Alzheimer's disease onset: unspecified onset Dementia behavioral disturbance: without behavioral disturbance Qualified Code(s): G30.9 - Alzheimer's disease, unspecified; F02.80 - Dementia in other diseases classified elsewhere without behavioral disturbance (4) Right lower lobe pneumonia Code(s): J18.1 - LOBAR PNEUMONIA, UNSPECIFIED ORGANISM Qualifiers: Pneumonia type: due to unspecified organism Qualified Code(s): J18.1 - Lobar pneumonia, unspecified organism (5) Bronchospasm Code(s): J98.01 - ACUTE BRONCHOSPASM (6) Chronic bronchitis with acute exacerbation Code(s): J20.9 - ACUTE BRONCHITIS, UNSPECIFIED J42 - UNSPECIFIED CHRONIC BRONCHITIS (7) Coughing Code(s): R05 - COUGH (8) Hypercholesteremia Code(s): E78.0 - PURE HYPERCHOLESTEROLEMIA * DO NOT USE * (9) Hypertension Code(s): I10 - ESSENTIAL (PRIMARY) HYPERTENSION (10) Shortness of breath Code(s): R06.02 - SHORTNESS OF BREATH Assessment/Plan Agree with ABX coverge Pending Micro studies O2 as needed Increase Prednisone BD TX Check sputum VTE prophylaxis Change DuoNeb to Albuterol PRN since the patient is on LAMA Will follow Thank you. Dr Moss
[2016-12-25] MEDS ORDERED: ALBUTEROL SO4 0.083% IH SOL 2.5 MG/3 ML VIAL.NEB. NEB PRN (15:06)
--- NOTE | 2016-12-25 21:05 | EKG ---
Test Reason : Blood Pressure : / mmHG Vent. Rate : 085 BPM Atrial Rate : 085 BPM P-R Int : 180 ms QRS Dur : 092 ms QT Int : 370 ms P-R-T Axes : 073 020 033 degrees QTc Int : 440 ms SINUS RHYTHM WITH PREMATURE ATRIAL COMPLEXES OTHERWISE NORMAL ECG WHEN COMPARED WITH ECG OF 01-OCT-2016 10:39, NO SIGNIFICANT CHANGE WAS FOUND Confirmed by JESSICA WRAY MD ([id number]) on 12/25/2016 9:05:21 PM Referred By: Confirmed By:JESSICA WRAY MD
[2016-12-25] MEDS: ATORVASTATIN CA 10 MG TABLET (FP) PO SCH (22:25)
[2016-12-26] MEDS: LEVOTHYROXINE NA 75 MCG TABLET (FP) PO SCH (06:11)
[2016-12-26] MEDS ORDERED: PT OWN MED DRAWER 7, Y5N ONE ×2 (10:00→20:21)
[2016-12-26] MEDS: DONEPEZIL HCL 10 MG TABLET (FP) PO SCH (10:27)
[2016-12-26] MEDS: GABAPENTIN 300 MG CAPSULE (FP) PO SCH ×2 (10:27→22:19)
[2016-12-26] MEDS: ASPIRIN 81 MG CHEWABLE TABLETS PO SCH (10:27)
[2016-12-26] MEDS: ESCITALOPRAM OXALATE 10 MG TABLET (FP) PO SCH (10:27)
[2016-12-26] MEDS: MEMANTINE HCL 10 MG TABLET (FP) PO SCH ×2 (10:27→22:19)
[2016-12-26] MEDS: DOCUSATE SODIUM 100 MG CAPSULE (FP) PO SCH (10:27)
[2016-12-26] MEDS: LORATADINE 10 MG TABLET PO SCH (10:27)
[2016-12-26] MEDS: predniSONE 5 MG TABLET (UD) PO SCH (10:28)
[2016-12-26] MEDS: MYCOPHENOLATE MOFETIL 500 MG TABLET PO SCH (10:28)
[2016-12-26] MEDS: CEFTRIAXONE 50 ML IVPB SCH (10:28)
[2016-12-26] MEDS: BUDESONIDE/FORMETEROL FUMARATE 80/4.5 mcg INHALER IH SCH ×2 (11:06→22:20)
[2016-12-26] MEDS: AZITHROMYCIN IVPB 250 ML IVPB SCH (11:06)
[2016-12-26] MEDS: ACLIDINIUM BROMIDE 400 MCG/INH AERO.POWD IH SCH ×2 (11:06→22:20)
--- NOTE | 2016-12-26 11:59 | PN ---
Physical Exam: SUBJECTIVE: Patient seen and examined at bedside this AM. AAO and at mental status baseline. Able to ambulate to bathroom without difficulty. States breathing is improved and almost at baseline. Afebrile overnight with no acute events noted in chart. OBJECTIVE: Vital Signs Period Temp Pulse Resp BP Sys/[place] Pulse Ox Last 24 Hr 98.0 F-99.0 F 75-91 20-22 136-150/49-81 98 GENERAL: Awake, alert, and fully oriented, in no acute distress. HEAD: Normal with no signs of trauma. EYES: extraocular movements intact, sclera anicteric, conjunctiva clear. No lid lag. EARS, NOSE, THROAT: Ears normal, nares patent, oropharynx clear without exudates. Moist mucous membranes. Tongue midline. NECK: Normal range of motion, supple LUNGS: Mildly coarse breath sounds with mild wheezes noted on right lower 1/3 lung field. HEART: Regular rate and rhythm, normal S1 and S2. ABDOMEN: Soft, nontender, not distended, normoactive bowel sounds, no guarding, no rebound, no masses. No hepatomegaly or splenomegaly. MUSCULOSKELETAL: No CVA tenderness. LOWER EXTREMITIES: 2+ pulses, warm, well-perfused. No calf tenderness. No peripheral edema. NEUROLOGICAL: Normal speech. Steady gait. PSYCHIATRIC: Cooperative. Good eye contact. Appropriate mood and affect. SKIN: Warm, dry. Laboratory Results - last 24 hr 12/25/16 02:33 Urine Color Yellow Urine Appearance Clear Urine pH 5.0 D Ur Specific [place] 1.020 Urine Protein 1+ H Urine Glucose (UA) 2+ H Urine Ketones Negative Urine Blood 1+ H Urine Nitrite Negative Urine Bilirubin Negative Urine Urobilinogen Negative Ur Leukocyte Esterase 1+ H D Urine RBC 12 Urine WBC 17 Ur Epithelial Cells Rare Urine Bacteria Few Hyaline Casts 1 Urine Mucus Rare Active Medications Generic Name Dose Route Start Last Admin Trade Name Freq PRN Reason Stop Dose Admin Aclidinium [place] 1 puff 12/25/16 10:00 12/26/16 11:06 Tudorza - IH 1 inhaler BID B[place]LY Administration Albuterol Sulfate 1 amp 12/25/16 15:06 12/25/16 18:32 Ventolin 0.083% Nebulizer Soln - NEB 1 amp Q4H PRN Administration SHORT OF BREATH/WHEEZING Aspirin 81 mg 12/25/16 10:00 12/26/16 10:27 Asa - PO 81 mg DAILY BEVERLY Administration Atorvastatin Calcium 10 mg 12/25/16 22:00 12/25/16 22:25 Lipitor - PO 10 mg HS BEVERLY Administration Budesonide/Formoterol Fumarate 2 puff 12/25/16 10:00 12/26/16 11:06 Symbicort 80/4.5mcg - IH 1 inhaler BID BEVERLY Administration Diltiazem HCl 240 mg 12/25/16 10:00 12/26/16 10:27 Cardizem Cd - PO 240 mg DAILY B[place] Administration Docusate Sodium 200 mg 12/25/16 10:00 12/26/16 10:27 Colace - PO 200 mg DAILY B[facility]LY Administration Donepezil HCl 10 mg 12/25/16 10:00 12/26/16 10:27 Aricept - PO 10 mg DAILY B[facility] Administration Escitalopram Oxalate 10 mg 12/25/16 10:00 12/26/16 10:27 Lexapro - PO 10 mg DAILY B[facility] Administration Gabapentin 300 mg 12/25/16 01:00 12/26/16 10:27 Neurontin - PO 300 mg BID BEVERLY Administration Ceftriaxone Sodium 50 mls @ 200 mls/hr 12/25/16 10:00 12/26/16 10:28 Rocephin 1gm Ivpb (Pre-Docked) IVPB 200 mls/hr DAILY B[facility]LY Administration Azithromycin 250 mls @ 250 mls/hr 12/25/16 10:00 12/26/16 11:06 Zithromax 500mg Ivpb (Pre-Docked) IVPB 250 mls/hr DAILY B[facility]LY Administration Levothyroxine Sodium 75 mcg 12/25/16 07:00 12/26/16 06:11 Synthroid - PO 75 mcg AM BEVERLY Administration Loratadine 10 mg 12/25/16 10:00 12/26/16 10:27 Claritin - PO 10 mg DAILY B[place] Administration Memantine 10 mg 12/25/16 10:00 12/26/16 10:27 Namenda - PO 10 mg BID B[place]LY Administration Mycophenolate Mofetil 500 mg 12/25/16 10:00 12/26/16 10:28 Cellcept - PO 500 mg DAILY B[place] Administration Prednisone 40 mg 12/25/16 15:05 12/26/16 10:28 Deltasone - PO 40 mg DAILY B[place]LY Administration ASSESSMENT/PLAN: 86 year yold female wth PMH of COPD on home O2, Asthma, Lymphoma, Dementia, GERD , bladder drop, HTN, HLD, depression/anxiety, hypothyroidism, and anemia presents to the ER via ambulance from [facility] for SOB. Found to have R sided PNA on CXR. #Acute Pneumonia, community-acquired -Azithromycin, Ceftriaxone day 2: will switch to PO meds at discharge -CXR reviewed, improved right infiltrates -urine antigens for PNA (-), Blood Cx (-) -Prednisone increased to 40mg PO daily (was previously on 15mg PO) -Pulmonary consult appreciated #COPD, Asthma Hx, no signs of exacerbation -increased Prednisone, as above -continue Tudorza, Symbicort, Claritin -Albuterol PRN -Keep O2 sat >90% #Hypothyroidism -continue Synthroid 75mcg daily #Dementia, Depression/Anxiety Hx -continue Namenda 10mg, Aricept 10mg, Lexapro 10mg daily, Neurontin 300mg PO BID #HTN/HLD/CAD Hx -continue Diltiazem 240mg PO DAILY, ASA 81mg PO daily, Lipitor 10mg PO HS, #Lymphoma Hx -continue Cellcept for immunotherapy Prophylaxis/FEN -Early ambulation -No PPI indicated -No IVF needed -monitor electrolytes -Cardiac diet Visit type - Emergency Visit Emergency Visit: Yes ED Registration Date: 12/24/16 Care time: The patient presented to the Emergency Department on the above date and was hospitalized for further evaluation of their emergent condition. - New Patient This patient is new to me today: Yes Date on this admission: 12/26/16 - Critical Care Critical Care patient: No
--- NOTE | 2016-12-26 12:20 | PN ---
Teaching Attending Note Name of Resident: Yoel Odonnell ATTENDING PHYSICIAN STATEMENT I saw and evaluated the patient. I reviewed the resident's note and discussed the case with the resident. I agree with the resident's findings and plan as documented. SUBJECTIVE: rosalva SOB, no abdominal pain no cough OBJECTIVE: Vital Signs Temperature 98.5 F 12/26/16 10:36 Pulse Rate 79 12/26/16 10:36 Respiratory Rate 20 12/26/16 10:36 Blood Pressure 136/49 12/26/16 10:36 O2 Sat by Pulse Oximetry (%) 98 12/25/16 21:00 HEART S1S2 + No MRG Lungs - no wheezes Abd soft distended NT No pedal edema CBC, BMP 12/25/16 08:00 12/25/16 08:00 Urine Test Results Urine Color Yellow 12/25/16 02:33 Urine Appearance Clear 12/25/16 02:33 Urine pH 5.0 (5.0-8.0) D 12/25/16 02:33 Ur Specific [place] 1.020 (1.005-1.025) 12/25/16 02:33 Urine Protein 1+ (NEGATIVE) H 12/25/16 02:33 Urine Glucose (UA) 2+ (NEGATIVE) H 12/25/16 02:33 Urine Ketones Negative (NEGATIVE) 12/25/16 02:33 Urine Blood 1+ (NEGATIVE) H 12/25/16 02:33 Urine Nitrite Negative (NEGATIVE) 12/25/16 02:33 Urine Bilirubin Negative (NEGATIVE) 12/25/16 02:33 Ur Leukocyte Esterase 1+ (NEGATIVE) H D 12/25/16 02:33 Urine RBC 12 /hpf (0-3) 12/25/16 02:33 Urine WBC 17 /hpf (3-5) 12/25/16 02:33 Ur Epithelial Cells Rare /hpf (FEW) 12/25/16 02:33 Urine Bacteria Few /hpf (NONE SEEN) 12/25/16 02:33 Urine Mucus Rare 12/25/16 02:33 ASSESSMENT AND PLAN: 1. Community Acquired Pneumonia- afebrile, leukocytosis improved , SOB resolved 2. COPD - history - mild exacerbation due to #1 3. UTI -asympthomatic PLAN : 1. Change to PO antibiotics 2. Prednisone PO with slow taper 3.D/C home with close follow up with pulmonary
--- NOTE | 2016-12-26 12:24 | PN ---
Progress Note (short form) - Note Progress Note: PULMONARY AWAKE/OOB TO CHAIR WELL KNOWN TO OUR SERVICE VSS/AFEBRILE ANICTERIC DISTANT B/L BREATH SOUNDS S1S2 BS+ SOFT NO EDEMA LABS/MEDS/NOTES/IMAGING REVIEWED (1) Anxiety Code(s): F41.9 - ANXIETY DISORDER, UNSPECIFIED (2) COPD with acute exacerbation Code(s): J44.1 - CHRONIC OBSTRUCTIVE PULMONARY DISEASE W (ACUTE) EXACERBATION (3) Dementia Code(s): F03.90 - UNSPECIFIED DEMENTIA WITHOUT BEHAVIORAL DISTURBANCE Qualifiers: Dementia type: Alzheimer's disease Alzheimer's disease onset: unspecified onset Dementia behavioral disturbance: without behavioral disturbance Qualified Code(s): G30.9 - Alzheimer's disease, unspecified; F02.80 - Dementia in other diseases classified elsewhere without behavioral disturbance (4) Right lower lobe pneumonia Code(s): J18.1 - LOBAR PNEUMONIA, UNSPECIFIED ORGANISM Qualifiers: Pneumonia type: due to unspecified organism Qualified Code(s): J18.1 - Lobar pneumonia, unspecified organism (5) Bronchospasm Code(s): J98.01 - ACUTE BRONCHOSPASM (6) Chronic bronchitis with acute exacerbation Code(s): J20.9 - ACUTE BRONCHITIS, UNSPECIFIED J42 - UNSPECIFIED CHRONIC BRONCHITIS (7) Coughing Code(s): R05 - COUGH (8) Hypercholesteremia Code(s): E78.0 - PURE HYPERCHOLESTEROLEMIA * DO NOT USE * (9) Hypertension Code(s): I10 - ESSENTIAL (PRIMARY) HYPERTENSION (10) Shortness of breath Code(s): R06.02 - SHORTNESS OF BREATH Assessment/Plan ABX coverge Micro studies negative thus far O2 as needed steroids BD TX VTE prophylaxis Will follow as needed David FITZPATRICK MD
--- NOTE | 2016-12-26 12:40 | DS ---
Physical Exam: SUBJECTIVE: Refer to today's progress note. OBJECTIVE: Vital Signs Period Temp Pulse Resp BP Sys/[place] Pulse Ox Last 24 Hr 98.0 F-99.0 F 75-91 20-22 136-150/49-81 98 PHYSICAL EXAM GENERAL: Awake, alert, and fully oriented, in no acute distress. HEAD: Normal with no signs of trauma. EYES: extraocular movements intact, sclera anicteric, conjunctiva clear. No lid lag. EARS, NOSE, THROAT: Ears normal, nares patent, oropharynx clear without exudates. Moist mucous membranes. Tongue midline. NECK: Normal range of motion, supple LUNGS: Mildly coarse breath sounds with mild wheezes noted on right lower 1/3 lung field. HEART: Regular rate and rhythm, normal S1 and S2. ABDOMEN: Soft, nontender, not distended, normoactive bowel sounds, no guarding, no rebound, no masses. No hepatomegaly or splenomegaly. MUSCULOSKELETAL: No CVA tenderness. LOWER EXTREMITIES: 2+ pulses, warm, well-perfused. No calf tenderness. No peripheral edema. NEUROLOGICAL: Normal speech. Steady gait. PSYCHIATRIC: Cooperative. Good eye contact. Appropriate mood and affect. SKIN: Warm, dry. Laboratory Last Values WBC 11.1 K/mm3 (4.0-10.0) H 12/25/16 08:00 RBC 4.33 M/mm3 (3.60-5.2) 12/25/16 08:00 Hgb 13.7 GM/dL (10.7-15.3) 12/25/16 08:00 Hct 41.7 % (32.4-45.2) 12/25/16 08:00 MCV 96.1 fl (80-96) H 12/25/16 08:00 MCHC 33.0 g/dl (32.0-36.0) 12/25/16 08:00 RDW 14.3 % (11.6-15.6) 12/25/16 08:00 Plt Count 253 K/MM3 (134-434) 12/25/16 08:00 MPV 8.5 fl (7.5-11.1) 12/25/16 08:00 Neutrophils % 89.5 % (42.8-82.8) H 12/25/16 08:00 Lymphocytes % 9.2 % (8-40) D 12/25/16 08:00 Monocytes % 1.2 % (3.8-10.2) L D 12/25/16 08:00 Eosinophils % 0.0 % (0-4.5) D 12/25/16 08:00 Basophils % 0.1 % (0-2.0) 12/25/16 08:00 INR 0.98 (0.82-1.09) 12/24/16 21:35 Sodium 140 mmol/L (136-145) 12/25/16 08:00 Potassium 3.8 mmol/L (3.5-5.1) 12/25/16 08:00 Chloride 98 mmol/L (98-107) 12/25/16 08:00 Carbon Dioxide 33 mmol/L (21-32) H 12/25/16 08:00 Anion Gap 9 (8-16) 12/25/16 08:00 BUN 23 mg/dL (7-18) H 12/25/16 08:00 Creatinine 1.1 mg/dL (0.55-1.02) H D 12/25/16 08:00 Creat Clearance w eGFR 59.09 (>60) 12/24/16 21:35 Random Glucose 152 mg/dL (74-106) H D 12/25/16 08:00 Calcium 9.3 mg/dL (8.5-10.1) 12/25/16 08:00 Total Bilirubin 0.3 mg/dL (0.2-1.0) D 12/24/16 21:35 AST 20 U/L (15-37) 12/24/16 21:35 ALT 26 U/L (12-78) D 12/24/16 21:35 Alkaline Phosphatase 108 U/L (45-117) D 12/24/16 21:35 Creatine Kinase 89 IU/L (26-192) 12/24/16 21:35 Troponin I < 0.02 ng/ml (0.00-0.05) 12/24/16 21:35 B-Natriuretic Peptide 198.48 pg/ml (5-450) 12/24/16 21:35 Total Protein 6.5 g/dl (6.4-8.2) 12/24/16 21:35 Albumin 3.4 g/dl (3.4-5.0) 12/24/16 21:35 Urine Color Yellow 12/25/16 02:33 Urine Appearance Clear 12/25/16 02:33 Urine pH 5.0 (5.0-8.0) D 12/25/16 02:33 Ur Specific [place] 1.020 (1.005-1.025) 12/25/16 02:33 Urine Protein 1+ (NEGATIVE) H 12/25/16 02:33 Urine Glucose (UA) 2+ (NEGATIVE) H 12/25/16 02:33 Urine Ketones Negative (NEGATIVE) 12/25/16 02:33 Urine Blood 1+ (NEGATIVE) H 12/25/16 02:33 Urine Nitrite Negative (NEGATIVE) 12/25/16 02:33 Urine Bilirubin Negative (NEGATIVE) 12/25/16 02:33 Urine Urobilinogen Negative E.U./dl (0.2-1.0) 12/25/16 02:33 Ur Leukocyte Esterase 1+ (NEGATIVE) H D 12/25/16 02:33 Urine RBC 12 /hpf (0-3) 12/25/16 02:33 Urine WBC 17 /hpf (3-5) 12/25/16 02:33 Ur Epithelial Cells Rare /hpf (FEW) 12/25/16 02:33 Urine Bacteria Few /hpf (NONE SEEN) 12/25/16 02:33 Hyaline Casts 1 /lpf 12/25/16 02:33 Urine Mucus Rare 12/25/16 02:33 Home Medications Medication Instructions Recorded Albuterol Sulfate [Proventil HFA 1 - 2 inh PO QID PRN 04/05/16 Inhaler -] Alprazolam [Xanax] 0.25 mg PO TID 04/05/16 Aspirin [ASA -] 81 mg PO DAILY 04/05/16 Atorvastatin Ca [Lipitor] 10 mg PO HS 04/05/16 Calcium Carbonate/Vitamin D3 1 each PO BID 04/05/16 [Oyster Shell 500-Vit D3 200 Tb] Diltiazem HCl [Diltiazem 24Hr Cd] 240 mg PO DAILY 04/05/16 Docusate Sodium [Colace -] 200 mg PO DAILY 04/05/16 Donepezil HCl [Aricept -] 10 mg PO DAILY 04/05/16 Escitalopram Oxalate [Lexapro -] 10 mg PO DAILY 04/05/16 Fluticasone/Salmeterol [Advair 1 each IH BID 04/05/16 250-50 Diskus] Gabapentin 300 mg PO BID 04/05/16 Levothyroxine [Synthroid -] 75 mcg PO DAILY 04/05/16 Loratadine [Claritin -] 10 mg PO DAILY 04/05/16 Memantine HCl [Namenda -] 10 mg PO BID 04/05/16 Mycophenolate Mofetil 500 mg PO DAILY 04/05/16 Olopatadine HCl [Pataday] 1 drop OP DAILY 04/05/16 Oxybutynin Chloride [Ditropan Xl] 5 mg PO DAILY 04/05/16 Prednisone 15 mg PO DAILY 04/05/16 Sennosides [Senna -] 2 tab PO HS 04/05/16 Tiotropium [place] [Spiriva] 1 inh PO DAILY 04/05/16 Aa/Hydrolyzed Collagen, Whey [Lps 30 ml PO DAILY 10/01/16 Neutral Flavor Liquid] Acetaminophen [Tylenol] 650 mg PO QID PRN 10/01/16 Multivitamin-Min/Iron/FA/Vit K 1 each PO DAILY 10/01/16 [Multi-Day Plus Minerals Tablet] Polyethylene Glycol 3350 [Gavilax] 17 gm PO DAILY 10/01/16 Azithromycin 500 mg PO DAILY #7 tablet 12/26/16 Prednisone [Deltasone -] 20 mg PO DAILY #9 tablet 12/26/16 HOSPITAL COURSE: Date of Admission:12/24/16 Date of Discharge: 12/26/16 Patient is a 86 year old female [facility] PMH of COPD on home O2, Asthma, Lymphoma, Dementia, GERD, bladder drop, HTN, HLD, depression/anxiety, hypothyroidism, and anemia who presented to the ER via ambulance from [facility] for SOB. Found to have R sided PNA on CXR. Started on antibiotic therapy with Ceftriaxone and Azithromycin. Prednisone was increased to 40mg daily (home dose is 15mg). All other home meds were resumed. After 2 days of therapy, patient's CXR was improved and patient's respiratory status returned to baseline. Patient stable at time of discharge with instructions to continue AZITHROMYCIN 500MG DAILY FOR 7 DAYS. Patient also instructed to taper Prednisone over the course of a week. Instructions included in label & on discharge plan. Minutes to complete discharge: 35 Discharge Summary Reason For Visit: COPD, ASPIRATION PNEUMONIA Current Active Problems Anxiety (Acute) COPD (chronic obstructive pulmonary disease) (Acute) COPD with acute exacerbation (Acute) DVT prophylaxis (Acute) Dementia (Acute) Left lower lobe pneumonia (Acute) Right lower lobe pneumonia (Acute) Condition: Improved - Instructions Diet, Activity, Other Instructions: Take Prednisone as follows: 40mg per day for 3 days. 20mg per day for 3 days Then continue taking 15mg daily. Take Azithromycin for 7 days. If shortness of breath or coughing starts, return to ED. Followup with Dr Mehta in 1-2 weeks. Referrals: Kurt Mehta MD [Primary Care Provider] - 1 Week Disposition: [facility] - Home Medications Comprehensive Discharge Medication List: Ambulatory Orders Albuterol Sulfate [Proventil HFA Inhaler -] 1 - 2 inh PO QID PRN 04/05/16 Alprazolam [Xanax] 0.25 mg PO TID 04/05/16 Aspirin [ASA -] 81 mg PO DAILY 04/05/16 Atorvastatin Ca [Lipitor] 10 mg PO HS 04/05/16 Calcium Carbonate/Vitamin D3 [Oyster [place] 500-Vit D3 200 Tb] 1 each PO BID 10/16 Diltiazem HCl [Diltiazem 24Hr Cd] 240 mg PO DAILY 04/05/16 Docusate Sodium [Colace -] 200 mg PO DAILY 04/05/16 Donepezil HCl [Aricept -] 10 mg PO DAILY 04/05/16 Escitalopram Oxalate [Lexapro -] 10 mg PO DAILY 04/05/16 Fluticasone/Salmeterol [Advair 250-50 Diskus] 1 each IH BID 04/05/16 Gabapentin 300 mg PO BID 04/05/16 Levothyroxine [Synthroid -] 75 mcg PO DAILY 04/05/16 Loratadine [Claritin -] 10 mg PO DAILY 04/05/16 Memantine HCl [Namenda -] 10 mg PO BID 04/05/16 Mycophenolate Mofetil 500 mg PO DAILY 04/05/16 Olopatadine HCl [Pataday] 1 drop OP DAILY 04/05/16 Oxybutynin Chloride [Ditropan Xl] 5 mg PO DAILY 04/05/16 Prednisone 15 mg PO DAILY 04/05/16 Sennosides [Senna -] 2 tab PO HS 04/05/16 Tiotropium [place] [Spiriva] 1 inh PO DAILY 04/05/16 Aa/Hydrolyzed Collagen, Whey [Lps Neutral Flavor Liquid] 30 ml PO DAILY Acetaminophen [Tylenol] 650 mg PO QID PRN 10/01/16 Multivitamin-Min/Iron/FA/Vit K [Multi-Day Plus Minerals Tablet] 1 each PO DAILY 10/01/16 Polyethylene Glycol 3350 [Gavilax] 17 gm PO DAILY 10/01/16 Azithromycin 500 mg PO DAILY #7 tablet 12/26/16 Prednisone [Deltasone -] 20 mg PO DAILY #9 tablet 12/26/16 This patient is new to me today: Yes Date on this admission: 12/26/16 Emergency Visit: Yes ED Registration Date: 12/24/16 Care time: The patient presented to the Emergency Department on the above date and was hospitalized for further evaluation of their emergent condition. Critical Care patient: No - Discharge Referral Referred to [facility] Med [facility] No
[2016-12-26] MEDS: ATORVASTATIN CA 10 MG TABLET (FP) PO SCH (22:19)
[2016-12-27] MEDS: LEVOTHYROXINE NA 75 MCG TABLET (FP) PO SCH (06:40)
[2016-12-27] MEDS: BUDESONIDE/FORMETEROL FUMARATE 80/4.5 mcg INHALER IH SCH (10:21)
[2016-12-27] MEDS: ACLIDINIUM BROMIDE 400 MCG/INH AERO.POWD IH SCH (10:21)
[2016-12-27] MEDS: DONEPEZIL HCL 10 MG TABLET (FP) PO SCH (10:22)
[2016-12-27] MEDS: predniSONE 5 MG TABLET (UD) PO SCH (10:22)
[2016-12-27] MEDS: LORATADINE 10 MG TABLET PO SCH (10:22)
[2016-12-27] MEDS: ESCITALOPRAM OXALATE 10 MG TABLET (FP) PO SCH (10:22)
[2016-12-27] MEDS: MYCOPHENOLATE MOFETIL 500 MG TABLET PO SCH (10:22)
[2016-12-27] MEDS: ASPIRIN 81 MG CHEWABLE TABLETS PO SCH (10:22)
[2016-12-27] MEDS: DOCUSATE SODIUM 100 MG CAPSULE (FP) PO SCH (10:23)
[2016-12-27] MEDS: MEMANTINE HCL 10 MG TABLET (FP) PO SCH (10:23)
[2016-12-27] MEDS: GABAPENTIN 300 MG CAPSULE (FP) PO SCH (10:23)
--- NOTE | 2016-12-27 11:17 | PN ---
Teaching Attending Note Name of Resident: Soo Robb ATTENDING PHYSICIAN STATEMENT I saw and evaluated the patient. I reviewed the resident's note and discussed the case with the resident. I agree with the resident's findings and plan as documented. SUBJECTIVE:cough continues to improve. denies CP, SOB,fever, chills, SOB OBJECTIVE: Last Vital Signs Temp Pulse Resp BP Pulse Ox 98.2 F 78 20 142/81 90 L 12/27/16 06:05 12/27/16 06:05 12/27/16 06:05 12/27/16 06:05 12/26/16 21:00 General NAD Lungs decreased breath sounds due to poor inspiratory effort. no wheezing or crackles ASSESSMENT AND PLAN: 86 yo F with PMH COPD on home O2, dementia, GERD, bladder prolapse, HTN adn dyslipidemia prestned to the ER for SOB for several days 1. CAP- R sided PNA. afebrile. clinically improved. cultures all negative. switched to oral antibiotics yesterday. plan to continue azithromycing for 7 days. 2. ACute COPD exacerbaion-clinically improved. back at 2L via NC to maintain SPo2 >90% which is baseline. started on steroid taper. evaluated by pulmonary here. cont slow steroid taper wiht pulm f/u as outpatient for PFT 3. discharged planning yesterday, no transportation available. plan for d/c today back to [facility] living.
--- NOTE | 2016-12-27 11:44 | PN ---
Progress Note (short form) - Note Progress Note: Resting in NAD. Some dry cough. No CP or SOB. Afebrile. Intake & Output 12/24/16 12/25/16 12/26/16 12/27/16 23:59 23:59 23:59 23:59 Intake Total 1220 1350 120 Balance 1220 1350 120 Weight 130 lb 145 lb 3.2 oz Last Vital Signs Temp Pulse Resp BP Pulse Ox 98.6 F 81 18 134/56 90 L 12/27/16 10:00 12/27/16 10:00 12/27/16 10:00 12/27/16 10:00 12/26/16 21:00 Active Medications Aclidinium [place] (Tudorza -) 1 puff IH BID [facility] Last Admin: 12/27/16 10:21 Dose: 1 puff Albuterol Sulfate (Ventolin 0.083% Nebulizer Soln -) 1 amp NEB Q4H PRN PRN Reason: SHORT OF BREATH/WHEEZING Last Admin: 12/25/16 18:32 Dose: 1 amp Aspirin (Asa -) 81 mg PO DAILY [facility] Last Admin: 12/27/16 10:22 Dose: 81 mg Atorvastatin Calcium (Lipitor -) 10 mg PO HS [facility] Last Admin: 12/26/16 22:19 Dose: 10 mg Budesonide/Formoterol Fumarate (Symbicort 80/4.5mcg -) 2 puff IH BID [facility] Last Admin: 12/27/16 10:21 Dose: 2 puff Diltiazem HCl (Cardizem Cd -) 240 mg PO DAILY [facility] Last Admin: 12/27/16 10:22 Dose: 240 mg Docusate Sodium (Colace -) 200 mg PO DAILY [facility] Last Admin: 12/27/16 10:23 Dose: 200 mg Donepezil HCl (Aricept -) 10 mg PO DAILY [facility] Last Admin: 12/27/16 10:22 Dose: 10 mg Escitalopram Oxalate (Lexapro -) 10 mg PO DAILY [facility] Last Admin: 12/27/16 10:22 Dose: 10 mg Gabapentin (Neurontin -) 300 mg PO BID [facility] Last Admin: 12/27/16 10:23 Dose: 300 mg Levothyroxine Sodium (Synthroid -) 75 mcg PO AM [facility] Last Admin: 12/27/16 06:40 Dose: 75 mcg Loratadine (Claritin -) 10 mg PO DAILY [facility] Last Admin: 12/27/16 10:22 Dose: 10 mg Memantine (Namenda -) 10 mg PO BID [facility] Last Admin: 12/27/16 10:23 Dose: 10 mg Mycophenolate Mofetil (Cellcept -) 500 mg PO DAILY [facility] Last Admin: 12/27/16 10:22 Dose: 500 mg Prednisone (Deltasone -) 40 mg PO DAILY [facility] Last Admin: 12/27/16 10:22 Dose: 40 mg Constitutional: Yes: No Distress Eyes: Yes: Conjunctiva Clear, EOM Intact HENT: Yes: Atraumatic, Normocephalic Neck: Yes: Supple, Trachea Midline Cardiovascular: Yes: Regular Rate and Rhythm Respiratory: Yes: On Nasal O2, few Rhonchi, No: Accessory Muscle Use, Rales, Stridor, Tachypnea, wheezes ...Inspection: Yes: WNL ...Clubbing: No Gastrointestinal: Yes: Normal Bowel Sounds, Soft Renal/: Yes: WNL Musculoskeletal: Yes: WNL Extremities: Yes: WNL Edema: No Peripheral Pulses WNL: Yes Integumentary: Yes: WNL Neurological: Yes: Alert, Oriented ...Motor Strength: WNL Psychiatric: Yes: Alert Labs: Problem List - Problems (1) Anxiety Code(s): F41.9 - ANXIETY DISORDER, UNSPECIFIED (2) COPD with acute exacerbation Code(s): J44.1 - CHRONIC OBSTRUCTIVE PULMONARY DISEASE W (ACUTE) EXACERBATION (3) Dementia Code(s): F03.90 - UNSPECIFIED DEMENTIA WITHOUT BEHAVIORAL DISTURBANCE Qualifiers: Dementia type: Alzheimer's disease Alzheimer's disease onset: unspecified onset Dementia behavioral disturbance: without behavioral disturbance Qualified Code(s): G30.9 - Alzheimer's disease, unspecified; F02.80 - Dementia in other diseases classified elsewhere without behavioral disturbance (4) Right lower lobe pneumonia Code(s): J18.1 - LOBAR PNEUMONIA, UNSPECIFIED ORGANISM Qualifiers: Pneumonia type: due to unspecified organism Qualified Code(s): J18.1 - Lobar pneumonia, unspecified organism (5) Bronchospasm Code(s): J98.01 - ACUTE BRONCHOSPASM (6) Chronic bronchitis with acute exacerbation Code(s): J20.9 - ACUTE BRONCHITIS, UNSPECIFIED J42 - UNSPECIFIED CHRONIC BRONCHITIS (7) Coughing Code(s): R05 - COUGH (8) Hypercholesteremia Code(s): E78.0 - PURE HYPERCHOLESTEROLEMIA * DO NOT USE * (9) Hypertension Code(s): I10 - ESSENTIAL (PRIMARY) HYPERTENSION (10) Shortness of breath Code(s): R06.02 - SHORTNESS OF BREATH Assessment/Plan PO ABX O2 as needed Prednisone taper BD TX D/C planning Dr Moss Problem List - Problems (1) Anxiety Code(s): F41.9 - ANXIETY DISORDER, UNSPECIFIED (2) COPD with acute exacerbation Code(s): J44.1 - CHRONIC OBSTRUCTIVE PULMONARY DISEASE W (ACUTE) EXACERBATION (3) Dementia Code(s): F03.90 - UNSPECIFIED DEMENTIA WITHOUT BEHAVIORAL DISTURBANCE Qualifiers: Dementia type: Alzheimer's disease Alzheimer's disease onset: unspecified onset Dementia behavioral disturbance: without behavioral disturbance Qualified Code(s): G30.9 - Alzheimer's disease, unspecified; F02.80 - Dementia in other diseases classified elsewhere without behavioral disturbance (4) Right lower lobe pneumonia Code(s): J18.1 - LOBAR PNEUMONIA, UNSPECIFIED ORGANISM Qualifiers: Pneumonia type: due to unspecified organism Qualified Code(s): J18.1 - Lobar pneumonia, unspecified organism (5) Bronchospasm Code(s): J98.01 - ACUTE BRONCHOSPASM (6) Chronic bronchitis with acute exacerbation Code(s): J20.9 - ACUTE BRONCHITIS, UNSPECIFIED J42 - UNSPECIFIED CHRONIC BRONCHITIS (7) Coughing Code(s): R05 - COUGH (8) Hypercholesteremia Code(s): E78.0 - PURE HYPERCHOLESTEROLEMIA * DO NOT USE * (9) Hypertension Code(s): I10 - ESSENTIAL (PRIMARY) HYPERTENSION (10) Shortness of breath Code(s): R06.02 - SHORTNESS OF BREATH
[2016-12-27 14:20] VITALS: BP 140/74; PULSE 83; TEMP 98.8
== END 2016-12-27 15:33 | disposition home or self-care (01) | DRG 190 ==
LOC: JER 20:29 → JERBED 23:01 → J5S 12-25 02:37
PROVIDERS: ADMIT Internal Medicine; ATTEND Internal Medicine
DX: J44.0 Chronic obstructive pulmonary disease with (acute) lower respiratory infection (principal); J18.9 Pneumonia, unspecified organism; N39.0 Urinary tract infection, site not specified; J45.909 Unspecified asthma, uncomplicated; K21.9 Gastro-esophageal reflux disease without esophagitis; I25.10 Atherosclerotic heart disease of native coronary artery without angina pectoris; I10 Essential (primary) hypertension; E78.5 Hyperlipidemia, unspecified; F41.8 Other specified anxiety disorders; I27.2 Other secondary pulmonary hypertension; M21.379 Foot drop, unspecified foot; E03.9 Hypothyroidism, unspecified; D64.9 Anemia, unspecified; D72.829 Elevated white blood cell count, unspecified; G30.9 Alzheimer's disease, unspecified; F02.80 Dementia in other diseases classified elsewhere, unspecified severity, without behavioral disturbance, psychotic disturbance, mood disturbance, and anxiety; Z85.72 Personal history of non-Hodgkin lymphomas; Z87.891 Personal history of nicotine dependence; Z99.81 Dependence on supplemental oxygen
CPT/HCPCS: 36415; 71010-TC; 80048; 80053; 81003; 81015; 82550; 83880; 84484; 85025; 85610; 86738; 87040; 87899; 93005; 93010; 94640; 97116-GP; 97162-GP; 99283-25; J7517

== ENCOUNTER 2017-01-12 11:02 | Inpatient (IN) | payer OTHER ==
[2017-01-12] MEDS ORDERED: ALBUTEROL SO4 2.5/IPRATROPIUM 0.5 INH SOL 3 ML VIAL.NEB. NEB ONE ×2 (11:23→12:01)
[2017-01-12 11:28] VITALS: BMI 21.4
--- NOTE | 2017-01-12 11:31 | PDOC ---
History of Present Illness - General History Source: Patient Exam Limitations: No Limitations - History of Present Illness Initial Comments: 01/12/17 13:55 The patient is a 86 year old female, with a significant past medical history of COPD (on oxygen at home occasionally), asthma, cancer, dementia, GERD, bladder drop, hypertension, hyperlipidemia, anxiety/depression, hypothyroidism, and anemia, who presents to the ED [facility] from [facility] for evaluation of shortness of breath since this morning. Per EMS the patients O2 sat on room air was 93. Patient reports she is occasionally on oxygen. She reports some SOB with exertion, but denies orthopnea. Patient denies any chest pain, diaphoresis, palpitations, or leg swelling. She denies any cough, headache , dizziness, fever, or chills. She denies any recent travel or sick contacts. Per records patient was recently admitted on 12/24/16 for right lower lobe pneumonia. Allergies: Levofloxacin Past Surgical History: Lung Surgery Social History: Former smoker(Quit 20 years ago). Denies alcohol or drug use. Erp Implementation Consultant: Dr. Corona PCP: Dr. Oakes <Chio Iniguez - Last Filed: 01/12/17 14:26> - General History Source: Patient Exam Limitations: No Limitations <Júnior Soliz - Last Filed: 01/12/17 15:00> - General Chief Complaint: Shortness of Breath Stated Complaint: SOB Time Seen by Provider: 01/12/17 11:13 Past History <Chio Iniguez - Last Filed: 01/12/17 14:26> - Past Medical History Anemia: No Asthma: Yes Cancer: Yes CVA: No COPD: Yes CHF: No Dementia: Yes GI Disorders: Yes (GERD) Disorders: Yes (BLADDER DROP) HTN: Yes Hypercholesterolemia: Yes 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, anxiety) Suicide Attempt (Hx): No Thyroid Disease: Yes (hypothyroid) - Surgical History Lung Surgery: Yes - Immunization History Td Vaccination: (unknown) Immunization Up to Date: Yes - Psycho/Social/Smoking Cessation Hx Anxiety: No Suicidal Ideation: No Smoking Status: No Smoking History: Former smoker Years of Tobacco Use: 40 Have you smoked in the past 12 months: No Number of Cigarettes Smoked Daily: 0 If you are a former smoker, when did you quit?: 45 years ago Cigars Per Day: 0 Information on smoking cessation initiated: No Hx Alcohol Use: No Drug/Substance Use Hx: No Substance Use Type: None Hx Substance Use Treatment: No <Heydi,Júnior - Last Filed: 01/12/17 15:00> - Past Medical History Allergies/Adverse Reactions: Allergies Allergy/AdvReac Type Severity Reaction Status Date / Time levofloxacin [From Levaquin] AdvReac Unknown Itching Verified 01/12/17 11:19 Home Medications: Ambulatory Orders Aa/Hydrolyzed Collagen, Whey [Lps 15-30 Liquid] 30 ml PO DAILY 01/12/17 Acetaminophen [Tylenol] 650 mg PO QID PRN 01/12/17 Aclidinium [place] [Tudorza -] 1 puff IH DAILY 01/12/17 Albuterol Sulfate [Proventil HFA Inhaler -] 1 - 2 inh PO QID 01/12/17 Alprazolam [Xanax] 0.25 mg PO TID 01/12/17 Aspirin [Children's Aspirin] 81 mg PO DAILY 01/12/17 Atorvastatin Ca [Lipitor] 10 mg PO HS 01/12/17 Calcium Carbonate/Vitamin D3 [Oyster Shell 500-Vit D3 200 Tb] 1 each PO BID Diltiazem Cd [Cardizem Cd -] 240 mg PO DAILY 01/12/17 Docusate Sodium 200 mg PO DAILY 01/12/17 Donepezil HCl [Aricept] 10 mg PO DAILY 01/12/17 Escitalopram Oxalate [Lexapro -] 10 mg PO DAILY 01/12/17 Gabapentin 300 mg PO BID 01/12/17 Levothyroxine [Synthroid -] 75 mcg PO DAILY 01/12/17 Loratadine [Allergy] 10 mg PO DAILY 01/12/17 Memantine HCl [Namenda -] 10 mg PO DAILY 01/12/17 Multivitamin with Iron [Daily Mabel with Iron] 1 each PO DAILY 01/12/17 Mycophenolate Mofetil [Cellcept] 500 mg PO DAILY 01/12/17 Olopatadine HCl [Pataday] 2.5 ml OP DAILY 01/12/17 Oxybutynin Chloride [Oxybutynin Chloride ER] 5 mg PO DAILY 01/12/17 Polyethylene Glycol 3350 [Miralax (For Daily Use) -] 17 gm PO DAILY 01/12/17 Prednisone [Deltasone -] 15 mg PO DAILY 01/12/17 Salmeterol/Fluticasone [Advair 250Mcg/50Mcg] 1 inh PO BID 01/12/17 Sennosides [Senna] 17.2 mg PO HS 01/12/17 Tiotropium [place] [Spiriva] 1 inh PO DAILY 01/12/17 Respiratory Specific PMHX - Complaint Specific PMHX Angina: No Bronchitis: Yes Pneumonia: No Pulmonary Embolus: No TB (Tuberculosis): No <Heydi,Júnior - Last Filed: 01/12/17 15:00> Review of Systems - Review of Systems Able to Perform ROS?: Yes Comments:: 01/12/17 13:55 Constitutional - Pt denies Fever, Chills, weakness HEENT: Denies vision changes, sore throat Respiratory: Present: +SOB, +SOB with exertion. Denies cough, hemoptysis Cardiac: Denies chest pain, palpitations, light headedness, leg swelling Abd/GI: Denies abd pain, nausea, vomiting, blood per rectum, melena, diarrhea : Denies dysuria, frequency, discharge Musculoskelatal: Denies back pain, joint swelling Skin: Denies bruising, erythema, rash Neurological: Denies headache, numbness, focal weakness, tingling, ataxia, weakness Hematologic: Denies anemia, easy bruising, easy bleeding <Iniguez,Giomilsy - Last Filed: 01/12/17 14:26> *Physical Exam - Vital Signs Last Vital Signs Temp Pulse Resp BP Pulse Ox 98.3 F 103 H 18 152/91 93 L 01/12/17 11:05 01/12/17 11:05 01/12/17 11:05 01/12/17 11:05 01/12/17 11:05 - Physical Exam Comments: 01/12/17 13:55 GENERAL: The patient is awake, alert, and fully oriented, Nontoxic - in no acute distress. HEAD: Normocephalic, atraumatic. EYES: extraocular movements intact, sclera anicteric, conjunctiva clear. ENT: Normal voice, Moist mucous membranes. NECK: Normal range of motion, supple without lymphadenopathy, JVD, or masses. LUNGS: Pt noted to be hypoxic to low 90s on 2L nasal cannula, +rales noted at Right base. no acute respiratory distress, able t ospeak complete sentences. HEART: Regular rate and rhythm, normal S1 and S2 without murmur, rub or gallop. ABDOMEN: Soft, nontender, normoactive bowel sounds. No guarding, no rebound. No masses. EXTREMITIES: Normal range of motion, no edema. No clubbing or cyanosis. No cords , erythema, or tenderness. NEUROLOGICAL: No facial asymmetry, Normal speech, normal gait. PSYCH: Normal mood, normal affect. SKIN: Warm, Dry, normal turgor, no rashes or lesions noted. <Chio Iniguez - Last Filed: 01/12/17 14:26> - Vital Signs Last Vital Signs Temp Pulse Resp BP Pulse Ox 98.3 F 103 H 18 152/91 93 L 01/12/17 11:05 01/12/17 11:05 01/12/17 11:05 01/12/17 11:05 01/12/17 11:05 <Júnior Soliz - Last Filed: 01/12/17 15:00> Heart Score/ECG Review - ECG Impressions Comment:: 01/12/17 11:35 Twelve-lead EKG was performed and reviewed by me. There is normal sinus rhythm with a normal rate. Rate of 91 The axis is normal. The intervals are normal. Nonspecific st wave changes PVCs present <Júnior Soliz - Last Filed: 01/12/17 15:00> ED Treatment Course - LABORATORY CBC & Chemistry Diagram: 01/12/17 11:24 01/12/17 11:24 - ADDITIONAL ORDERS Additional order review: Laboratory Results 01/12/17 01/12/17 01/12/17 12:15 11:24 11:24 INR 0.93 VBG pH 7.44 H POC VBG pCO2 46.3 POC VBG pO2 30.6 Mixed VBG HCO3 30.6 H Sodium 143 Potassium 4.1 Chloride 103 Carbon Dioxide 32 Anion Gap 8 BUN 15 D Creatinine 0.7 D Creat Clearance w eGFR > 60 Random Glucose 72 L D Lactic Acid Calcium 9.0 Total Bilirubin 0.6 D AST 39 H D ALT 36 D Alkaline Phosphatase 120 H Creatine Kinase 123 Troponin I < 0.02 Total Protein 6.8 Albumin 3.4 01/12/17 11:23 INR VBG pH POC VBG pCO2 POC VBG pO2 Mixed VBG HCO3 Sodium Potassium Chloride Carbon Dioxide Anion Gap BUN Creatinine Creat Clearance w eGFR Random Glucose Lactic Acid 1.5 Calcium Total Bilirubin AST ALT Alkaline Phosphatase Creatine Kinase Troponin I Total Protein Albumin 01/12/17 11:24 RBC 4.33 MCV 97.3 H MCHC 32.8 RDW 14.7 MPV 8.0 Neutrophils % 82.0 Lymphocytes % 10.8 Monocytes % 6.4 D Eosinophils % 0.5 D Basophils % 0.3 - RADIOLOGY Radiograph Interpretation: 01/12/17 13:04 EXAM: CXR INTERPRETED BY: Dr. Yip REVIEWED BY: Dr. Soliz IMPRESSION: New segmental right lower lobe consolidation. 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 - Medications Given in the ED: ED Medications Discontinued Medications Generic Name Dose Route Start Last Admin Trade Name Freq PRN Reason Stop Dose Admin Albuterol/Ipratropium 1 amp 01/12/17 11:23 01/12/17 12:03 Duoneb - NEB 01/12/17 11:24 1 amp ONCE ONE Administration Cefepime HCl 2 gm 01/12/17 12:13 01/12/17 12:23 Maxipime (Restricted To Id) - IVPB 01/12/17 12:14 2 gm ONCE ONE Administration Protocol <hCio Iniguez - Last Filed: 01/12/17 14:26> - LABORATORY CBC & Chemistry Diagram: 01/12/17 11:24 01/12/17 11:24 - RADIOLOGY Radiology Studies Ordered: Category Date Time Status CHEST X-RAY PORTABLE* [RAD] Stat Radiology 01/12/17 11:23 Ordered <Júnior Soliz - Last Filed: 01/12/17 15:00> Medical Decision Making - Medical Decision Making 01/12/17 13:46 First call placed to Dr. Mehta at 13:35. Case discussed with Dr. Mehta at 14:22. First call placed to Dr. Fco Owen at 13:40. Awaiting call back from Dr. Green. Second call placed to Dr. Green at 14:06. Awaiting call back. Case discussed with Dr. Green at 14:25. Patient will be admitted to hospitalists. <Chio Iniguez - Last Filed: 01/12/17 14:26> - Medical Decision Making 01/12/17 11:32 86y F hx of COPD, HTN, HL, hypothyroidism presents with SOB since this morning, pt denies any cp, cough, fever/chills, diaphoresis, n/v, leg swelling, orthopnea. on exam pt noted to be hypoxic to low 90s on 2L NC, +rales onted at Right base. suspect pna, copd exacerbation will obtain labs, vbg, cxr, ekg PMD Mehdi A portion of this note was documented by scribe services under my direction. I have reviewed the details of the note, within reason, and agree with the documentation with the following case summary and management plan written by me 01/12/17 14:57 xra noted for RLL pna, pt written for broad spectrum abx labs noted for leukocytosis case dw dr. mehta requests hspitliast admission case discussed with hosptialist, agree with admission in med surg under dr. benjamin service consider possible speech/swallow as pt has recurrent RLL pna for aspiration Case discussed in detail with admitting physician including history, physical exam and ancillary studies. Admitting physician has assumed care for the patient, will follow all pending diagnostics and will complete the evaluation and treatment. <Júnior Soliz - Last Filed: 01/12/17 15:00> *DC/Admit/Observation/Transfer - Attestations Scribe Attestion: 01/12/17 13:56 Documentation prepared by Chio Iniguez, acting as medical research associate for Júnior Soliz MD. <Chio Iniguez - Last Filed: 01/12/17 14:26> - Discharge Dispostion Admit: Yes <Júnior Soliz - Last Filed: 01/12/17 15:00> Diagnosis at time of Disposition: Right lower lobe pneumonia Qualifiers: Pneumonia type: due to unspecified organism Qualified Code(s): J18.1 - Lobar pneumonia, unspecified organism COPD (chronic obstructive pulmonary disease) Qualifiers: COPD type: unspecified COPD Qualified Code(s): J44.9 - Chronic obstructive pulmonary disease, unspecified - Discharge Dispostion Condition at time of disposition: Stable - Referrals Referrals: Christina Oakes MD [Primary Care Provider] -
[2017-01-12 12:00] LABS: BASOPHIL 0.3 % (0-2.0); EOSINOPHIL 0.5 % (0-4.5); MCH 31.9 pg (25.7-33.7); MCHC 32.8 g/dl (32.0-36.0); MEAN CELL VOLUME 97.3 fl (80-96); PLATELET COUNT 203 K/MM3 (134-434); RDW 14.7 % (11.6-15.6); WHITE BLOOD COUNT 17.7 K/mm3 (4.0-10.0)
[2017-01-12 12:13] LABS: INR 0.93 (0.82-1.09); PROTHROMBIN TIME (PATIENT) 10.2 SEC (9.98-11.88)
[2017-01-12] MEDS ORDERED: AZITHROMYCIN IVPB 500 MG in DEXTROSE 5%-WATER - 250 ML IVPB ONE (12:13)
[2017-01-12] MEDS ORDERED: CEFEPIME HCL 2 GM VIAL (RESTRICTED TO ID) IVPB ONE (12:13)
[2017-01-12] MEDS ORDERED: VANCOMYCIN 1,000 MG in DEXTROSE 5%-WATER - 250 ML IVPB ONE (12:13)
[2017-01-12] MEDS ORDERED: CEFEPIME 100 ML IVPB ONE (12:18)
[2017-01-12] MEDS ORDERED: AZITHROMYCIN IVPB 250 ML IVPB ONE (12:18)
[2017-01-12 12:27] LABS: ALBUMIN 3.4 g/dl (3.4-5.0); ANION GAP 8 (8-16); BILIRUBIN,TOTAL 0.6 mg/dL (0.2-1.0); CO2 32 mmol/L (21-32); CREATININE 0.7 mg/dL (0.55-1.02); GLUCOSE,RANDOM 72 mg/dL (74-106); SGPT/ALT 36 U/L (12-78); TOT PROT 6.8 g/dl (6.4-8.2)
[2017-01-12 12:29] LABS: ALK PHOS 120 U/L (45-117); TROPONIN I < 0.02 ng/ml (0.00-0.05)
[2017-01-12 12:31] LABS: VENOUS PH 7.44 (7.32-7.42)
[2017-01-12 12:31] LABS: SGOT/AST 39 U/L (15-37)
[2017-01-12 12:32] LABS: VENOUS BLOOD GAS HCO3 30.6 meq/L (19-25)
--- NOTE | 2017-01-12 13:07 | EKG ---
Test Reason : Blood Pressure : / mmHG Vent. Rate : 091 BPM Atrial Rate : 091 BPM P-R Int : 154 ms QRS Dur : 098 ms QT Int : 348 ms P-R-T Axes : 057 040 031 degrees QTc Int : 428 ms SINUS RHYTHM WITH OCCASIONAL PREMATURE VENTRICULAR COMPLEXES NONSPECIFIC ST AND T WAVE ABNORMALITY ABNORMAL ECG WHEN COMPARED WITH ECG OF 24-DEC-2016 21:10, PREMATURE VENTRICULAR COMPLEXES ARE NOW PRESENT PREMATURE ATRIAL COMPLEXES ARE NO LONGER PRESENT NONSPECIFIC T WAVE ABNORMALITY, WORSE IN INFERIOR LEADS Confirmed by KATIANA HONEYCUTT MD ([id number]) on 01/12/2017 1:06:33 PM Referred By: Confirmed By:KATIANA HONEYCUTT MD
[2017-01-12] MEDS ORDERED: METOCLOPRAMIDE HCL INJECTION 10 MG/2 ML VIAL IVPUSH ONE (13:08)
[2017-01-12] MEDS ORDERED: ALBUTEROL SO4 0.083% IH SOL 2.5 MG/3 ML VIAL.NEB. NEB ONE (13:31)
[2017-01-12] MEDS ORDERED: VANCOMYCIN 1 GRAM (PRE-DOCKED) 250 ML IVPB ONE (13:43)
--- NOTE | 2017-01-12 15:05 | HP ---
CHIEF COMPLAINT: PCP:Dr. Oakes [place] Polisher: Dr. Corona HISTORY OF PRESENT ILLNESS: The patient is a 86 year old female, with a PMH of COPD (on home oxygen), asthma , lymphoma, dementia, GERD, bladder drop, HTN, HLD, depression/anxiety, hypothyroidism, and anemia who was BIBEMS from [facility] due to increased SOB since this morning, per nursing staff. Patient has hospitalized 12/24/26-12/26/16 for RLL aspiration PNA (no speech swallow eval), treated with Ceftriaxone, Azithromycin and increased dose of Prednisone (40mg daily from home 15mg). On d/c she was told to taper prednisone over a week. EMS reports O2 RA 93%. Patient denies worsening of respiratory status. She denies increased sob, f/c, orthopnea, periphearal edema, incresaed exertional dyspnea or increased O2 or neb use. She reports a chronic dry cough. She reports occasionally choking on her food. She denies sick contacts. Patient has dementia and information obtained from her is not reliable. In ED her O2 sat is 88% on 2 L, 90% on 4 L. ER course was notable for: (1)labs (2)ekg: no evidence of ACS, new PVC's, cxr: RLL PNA (3)cefepime, vanco, azithromycin, nebs, o2 Recent Travel: denies PAST MEDICAL HISTORY: as above PAST SURGICAL HISTORY:Lung Surgery Social History:[facility] resident Smoking:Former smoker(Quit 20 years ago) Alcohol:denies Drugs: denies Family History: noncontributing [facility] Adverse Reaction (Unknown, Verified 01/12/17 11:19) Itching HOME MEDICATIONS: Home Medications Medication Instructions Recorded Aa/Hydrolyzed Collagen, Whey [Lps 30 ml PO DAILY 01/12/17 15-30 Liquid] Acetaminophen [Tylenol] 650 mg PO QID PRN 01/12/17 Aclidinium [place] [Tudorza -] 1 puff IH DAILY 01/12/17 Albuterol Sulfate [Proventil HFA 1 - 2 inh PO QID 01/12/17 Inhaler -] Alprazolam [Xanax] 0.25 mg PO TID 01/12/17 Aspirin [Children's Aspirin] 81 mg PO DAILY 01/12/17 Atorvastatin Ca [Lipitor] 10 mg PO HS 01/12/17 Calcium Carbonate/Vitamin D3 1 each PO BID 01/12/17 [Oyster Shell 500-Vit D3 200 Tb] Diltiazem Cd [Cardizem Cd -] 240 mg PO DAILY 01/12/17 Docusate Sodium 200 mg PO DAILY 01/12/17 Donepezil HCl [Aricept] 10 mg PO DAILY 01/12/17 Escitalopram Oxalate [Lexapro -] 10 mg PO DAILY 01/12/17 Gabapentin 300 mg PO BID 01/12/17 Levothyroxine [Synthroid -] 75 mcg PO DAILY 01/12/17 Loratadine [Allergy] 10 mg PO DAILY 01/12/17 Memantine HCl [Namenda -] 10 mg PO DAILY 01/12/17 Multivitamin with Iron [Daily Mabel 1 each PO DAILY 01/12/17 with Iron] Mycophenolate Mofetil [Cellcept] 500 mg PO DAILY 01/12/17 Olopatadine HCl [Pataday] 2.5 ml OP DAILY 01/12/17 Oxybutynin Chloride [Oxybutynin 5 mg PO DAILY 01/12/17 Chloride ER] Polyethylene Glycol 3350 [Miralax 17 gm PO DAILY 01/12/17 (For Daily Use) -] Prednisone [Deltasone -] 15 mg PO DAILY 01/12/17 Salmeterol/Fluticasone [Advair 1 inh PO BID 01/12/17 250Mcg/50Mcg] Sennosides [Senna] 17.2 mg PO HS 01/12/17 Tiotropium [place] [Spiriva] 1 inh PO DAILY 01/12/17 REVIEW OF SYSTEMS CONSTITUTIONAL: Absent: fever, chills HEENT: Absent: rhinorrhea, nasal congestion, throat pain CARDIOVASCULAR: Absent: chest pain, syncope, palpitations, peripheral edema RESPIRATORY: Absent: stridor, hemoptysis GASTROINTESTINAL: Absent: abdominal pain, abdominal distension, nausea, vomiting, diarrhea, constipation, melena, hematochezia GENITOURINARY: Absent: dysuria, flank pain MUSCULOSKELETAL: Absent: back pain, neck pain SKIN: Absent: rash HEMATOLOGIC/IMMUNOLOGIC: Absent: frequent infections ENDOCRINE: Absent: heat intolerance, cold intolerance NEUROLOGIC: Absent: headache, focal weakness or paresthesias PSYCHIATRIC: Absent: anxiety, depression PHYSICAL EXAMINATION Vital Signs - 24 hr 01/12/17 11:05 Temperature 98.3 F Pulse Rate 103 H Respiratory 18 Rate Blood Pressure 152/91 O2 Sat by Pulse 93 L Oximetry (%) GENERAL: Awake, alert, somewhat confused, in no acute distress. HEAD: Normal with no signs of trauma. EYES: Pupils equal, round and reactive to light, extraocular movements intact, sclera anicteric, conjunctiva clear. L lid partial ptosis EARS, NOSE, THROAT: Moist mucous membranes. NECK: supple without JVD LUNGS: diffusely restricted breath sounds with end expiratory wheezes, RLL ronchi HEART: Regular rate and rhythm, normal S1 and S2 ABDOMEN: Soft, nontender, not distended, normoactive bowel sounds, no guarding, no rebound, no masses. MUSCULOSKELETAL: No CVA tenderness. UPPER EXTREMITIES: 2+ pulses, warm, well-perfused. No peripheral edema. LOWER EXTREMITIES: 1+ pulses, warm, well-perfused. No calf tenderness. No peripheral edema. NEUROLOGICAL: Cranial nerves II-XII intact but there is L lid partial ptosis. Normal speech. strength 4+/5 in all extremities, bicep and patellar reflexes 1+ b/l, sensation intact in face and extremities PSYCHIATRIC: Cooperative. Good eye contact. Appropriate mood and affect. SKIN: Warm, dry Laboratory Results - last 24 hr 01/12/17 01/12/17 01/12/17 11:23 11:24 11:24 WBC 17.7 H D RBC 4.33 Hgb 13.8 Hct 42.2 MCV 97.3 H MCH 31.9 MCHC 32.8 RDW 14.7 Plt Count 203 MPV 8.0 Neutrophils % 82.0 Lymphocytes % 10.8 Monocytes % 6.4 D Eosinophils % 0.5 D Basophils % 0.3 INR 0.93 VBG pH POC VBG pCO2 POC VBG pO2 Mixed VBG HCO3 Sodium Potassium Chloride Carbon Dioxide Anion Gap BUN Creatinine Creat Clearance w eGFR Random Glucose Lactic Acid 1.5 Calcium Total Bilirubin AST ALT Alkaline Phosphatase Creatine Kinase Troponin I Total Protein Albumin 01/12/17 01/12/17 11:24 12:15 WBC RBC Hgb Hct MCV MCH MCHC RDW Plt Count MPV Neutrophils % Lymphocytes % Monocytes % Eosinophils % Basophils % INR VBG pH 7.44 H POC VBG pCO2 46.3 POC VBG pO2 30.6 Mixed VBG HCO3 30.6 H Sodium 143 Potassium 4.1 Chloride 103 Carbon Dioxide 32 Anion Gap 8 BUN 15 D Creatinine 0.7 D Creat Clearance w eGFR > 60 Random Glucose 72 L D Lactic Acid Calcium 9.0 Total Bilirubin 0.6 D AST 39 H D ALT 36 D Alkaline Phosphatase 120 H Creatine Kinase 123 Troponin I < 0.02 Total Protein 6.8 Albumin 3.4 ASSESSMENT/PLAN: The patient is a 86 year old female, with a PMH of COPD (on home oxygen), asthma , lymphoma, dementia, GERD, bladder drop, HTN, HLD, depression/anxiety, hypothyroidism, and anemia who was BIBEMS from [facility] due to increased SOB since this morning, per nursing staff. Recurrent HCAP with acute respiratory distress in setting on O2 dependent COPD -CXR new segmental RLL consolidation -possible aspiration: speech/swallow eval -Dr Harding consult -LABA/LAMA -Albuterol nebs PRN -IV medrol 40 q 6 to taper -abx HCAP coverage: rocephin, azithromycin, clindamycin -incentive spirometer -NC O2 4L -baseline ABG HTN -cardizem HLD -lipitor 10 hs Hypothyroid -synthroid 75 d GERD -Daily ppi FEN -NS @ 50 -lytes stable -Na controlled diet Hep, ppi Dispo: adm med emma Problem List - Problem (1) Anxiety Code(s): F41.9 - ANXIETY DISORDER, UNSPECIFIED (2) COPD (chronic obstructive pulmonary disease) Code(s): J44.9 - CHRONIC OBSTRUCTIVE PULMONARY DISEASE, UNSPECIFIED Qualifiers : COPD type: unspecified COPD Qualified Code(s): J44.9 - Chronic obstructive pulmonary disease, unspecified (3) DVT prophylaxis Code(s): [id number] - (4) Right lower lobe pneumonia Code(s): J18.1 - LOBAR PNEUMONIA, UNSPECIFIED ORGANISM Qualifiers: Pneumonia type: due to unspecified organism Qualified Code(s): J18.1 - Lobar pneumonia, unspecified organism (5) Acute exacerbation of COPD with asthma Code(s): J44.1 - CHRONIC OBSTRUCTIVE PULMONARY DISEASE W (ACUTE) EXACERBATION J45.901 - UNSPECIFIED ASTHMA WITH (ACUTE) EXACERBATION (6) COPD exacerbation Code(s): J44.1 - CHRONIC OBSTRUCTIVE PULMONARY DISEASE W (ACUTE) EXACERBATION (7) Dementia Code(s): F03.90 - UNSPECIFIED DEMENTIA WITHOUT BEHAVIORAL DISTURBANCE Qualifiers: Dementia type: Alzheimer's disease Alzheimer's disease onset: unspecified onset Dementia behavioral disturbance: without behavioral disturbance Qualified Code(s): G30.9 - Alzheimer's disease, unspecified; F02.80 - Dementia in other diseases classified elsewhere without behavioral disturbance (8) Drug allergy, antibiotic Code(s): Z88.1 - ALLERGY STATUS TO OTHER ANTIBIOTIC AGENTS STATUS (9) Hypercholesteremia Code(s): E78.0 - PURE HYPERCHOLESTEROLEMIA * DO NOT USE * (10) Hypertension Code(s): I10 - ESSENTIAL (PRIMARY) HYPERTENSION (11) Leukocytosis Code(s): D72.829 - ELEVATED WHITE BLOOD CELL COUNT, UNSPECIFIED (12) Pneumonia Code(s): J18.9 - PNEUMONIA, UNSPECIFIED ORGANISM (13) Shortness of breath Code(s): R06.02 - SHORTNESS OF BREATH (14) Acute respiratory distress Code(s): R06.00 - DYSPNEA, UNSPECIFIED (15) Hypothyroid Code(s): E03.9 - HYPOTHYROIDISM, UNSPECIFIED Visit type - Emergency Visit Emergency Visit: Yes ED Registration Date: 01/12/17 Care time: The patient presented to the Emergency Department on the above date and was hospitalized for further evaluation of their emergent condition. - New Patient This patient is new to me today: Yes Date on this admission: 01/12/17 - Critical Care Critical Care patient: No
[2017-01-12] MEDS ORDERED: METOCLOPRAMIDE HCL INJECTION 10 MG/2 ML VIAL ONE (15:57)
--- NOTE | 2017-01-12 16:18 | PN ---
Teaching Attending Note Name of Resident: Sosa Izquierod ATTENDING PHYSICIAN STATEMENT I saw and evaluated the patient. I reviewed the resident's note and discussed the case with the resident. I agree with the resident's findings and plan as documented. SUBJECTIVE: BIBA from [facility] living fascility due to worsening dyspnea and O2 sat of 93% . C/o dyspnea . Non compliant with home O2 . No fevers. PMH COPD - O2 dependent Lymphoma GERD HTN HLD Depression Hypothyroidism Anemia Past SX Hx LN dissection Lung resection R upper lobectomy ALL Levaquin Social Former smoker No alcohol No drug abuse OBJECTIVE: Vital Signs Temperature 98.3 F 01/12/17 11:05 Pulse Rate 98 H 01/12/17 15:53 Respiratory Rate 20 01/12/17 15:53 Blood Pressure 108/93 01/12/17 15:53 O2 Sat by Pulse Oximetry (%) 95 01/12/17 15:53 EARS, NOSE, THROAT: Moist mucous membranes. NECK: supple without JVD LUNGS: b/l wheezing HEART: Regular rate and rhythm, normal S1 and S2 ABDOMEN: Soft, nontender, not distended, normoactive bowel sounds, no guarding, no rebound, no masses. MUSCULOSKELETAL: No CVA tenderness. UPPER EXTREMITIES: 2+ pulses, warm, well-perfused. No peripheral edema. LOWER EXTREMITIES: 1+ pulses, warm, well-perfused. No calf tenderness. No peripheral edema. CBC, BMP 01/12/17 11:24 01/12/17 11:24 CXR - RLL infiltrate ASSESSMENT AND PLAN 1. Worsening Dyspnea / hypercapnic respiratory failure - likely secondary to acute exacerbation of COPD and possible superimposed recurrent RLL pneumonia ( possibly aspiration) - Albuterol PRN - O2 2L NC at all times and keep O2 sat above 93 - IVAB - Steroids IV - speech and swallow evaluation r/o aspiration - consider CT chest w/o contrast to evaluate lung parenchyma - pulmonary evaluation 2. Dementia - stable,at baseline 3. HTN- controlled 4. GERD- PPI 5. DVT PPX - sq Lovenox
[2017-01-12] MEDS ORDERED: ACETAMINOPHEN 325 MG TABLET (FP) PO PRN (17:12)
[2017-01-12] MEDS ORDERED: SODIUM CHLORIDE 1,000 ML IV SCH (17:15)
[2017-01-12 18:00] LABS: ARTERIAL BLD GAS O2 SATURATION 92.3 % (90-98.9); ARTERIAL BLOOD GAS BASE EXCESS 5.3 meq/l (-2-2); ARTERIAL BLOOD GAS HCO3 29.5 meq/L (22-26); ARTERIAL BLOOD GAS pH 7.45 (7.35-7.45)
[2017-01-12 18:01] LABS: ALLENS TEST POSITIVE; ART PUNCT SITE RIGHT RADIAL; LPM/O2% 3L; PT. ON O2? YES; TYPE OF O2 NASAL
[2017-01-12 18:04] LABS: ARTERIAL BLOOD GAS PO2 57.9 mmHg (68-100)
[2017-01-12] MEDS: CEFEPIME 2 GM in DEXTROSE 5%-WATER - 100 ML IVPB SCH (18:26)
--- NOTE | 2017-01-12 20:49 | HP ---
CHIEF COMPLAINT: "I couldn't breathe" PCP: Dr. Oakes HISTORY OF PRESENT ILLNESS: Patient is an 86yo Female with PMHx of COPD on 2L O2, Dementia, Lymphoma who came from [facility] because she became acutely short of breath. The patient states she was resting, woke up and became acutely SOB. Patient has a chronic cough, but states her cough is getting worse. The cough is dry, not wet, no mucous production. The patient has no fevers, no chills, no diaphoresis. The patient reports no chest pain. Pt endorses orthopnea chronically. No recent travel history. Unsure of sick contacts since patient is in a facility. 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, now lives in [facility] Smokin pack year smoking history, not current smoker Alcohol: Dnies Drugs: Denies Family History: Noncontributory Allergies: Levofloxacin [From Levaquin] Adverse Reaction (Unknown, Verified 11:19) -Itching HOME MEDICATIONS: Home Medications Medication Instructions Recorded Aa/Hydrolyzed Collagen, Whey [Lps 30 ml PO DAILY 01/12/17 15-30 Liquid] Acetaminophen [Tylenol] 650 mg PO QID PRN 01/12/17 Aclidinium Otterbein [Tudorza -] 1 puff IH DAILY 01/12/17 Albuterol Sulfate [Proventil HFA 1 - 2 inh PO QID 01/12/17 Inhaler -] Alprazolam [Xanax] 0.25 mg PO TID 01/12/17 Aspirin [Children's Aspirin] 81 mg PO DAILY 01/12/17 Atorvastatin Ca [Lipitor] 10 mg PO HS 01/12/17 Calcium Carbonate/Vitamin D3 1 each PO BID 01/12/17 [Oyster Shell 500-Vit D3 200 Tb] Diltiazem Cd [Cardizem Cd -] 240 mg PO DAILY 01/12/17 Docusate Sodium 200 mg PO DAILY 01/12/17 Donepezil HCl [Aricept] 10 mg PO DAILY 01/12/17 Escitalopram Oxalate [Lexapro -] 10 mg PO DAILY 01/12/17 Gabapentin 300 mg PO BID 01/12/17 Levothyroxine [Synthroid -] 75 mcg PO DAILY 01/12/17 Loratadine [Allergy] 10 mg PO DAILY 01/12/17 Memantine HCl [Namenda -] 10 mg PO DAILY 01/12/17 Multivitamin with Iron [Daily Mabel 1 each PO DAILY 01/12/17 with Iron] Mycophenolate Mofetil [Cellcept] 500 mg PO DAILY 01/12/17 Olopatadine HCl [Pataday] 2.5 ml OP DAILY 01/12/17 Oxybutynin Chloride [Oxybutynin 5 mg PO DAILY 01/12/17 Chloride ER] Polyethylene Glycol 3350 [Miralax 17 gm PO DAILY 01/12/17 (For Daily Use) -] Prednisone [Deltasone -] 15 mg PO DAILY 01/12/17 Salmeterol/Fluticasone [Advair 1 inh PO BID 01/12/17 250Mcg/50Mcg] Sennosides [Senna] 17.2 mg PO HS 01/12/17 Tiotropium Otterbein [Spiriva] 1 inh PO DAILY 01/12/17 REVIEW OF SYSTEMS - As stated above. All other ROS is negative PHYSICAL EXAMINATION Vital Signs - 24 hr 01/12/17 01/12/17 15:53 17:34 Pulse Rate [ 98 H Apical] Respiratory 20 Rate Blood Pressure 108/93 [Left Arm] O2 Sat by Pulse 95 93 L Oximetry (%) GENERAL: Awake, alert, and fully oriented, in no acute distress. Patient was lying in bed, coughing. EYES: Pupils equal, round and reactive to light, extraocular movements intact LUNGS: Diffuse wheezing throughout. Basilar rhonchi/rales greater in Right lower lung escobar than Left. HEART: Regular rate and rhythm, normal S1 and S2, skipped beats at times, without murmur, rub or gallop. ABDOMEN: Soft, nontender, distended, normoactive bowel sounds MUSCULOSKELETAL: Normal range of motion at all joints. 5/5 muscle strength in all extremities UPPER EXTREMITIES: 2+ pulses, warm, well-perfused. No cyanosis. No clubbing. No peripheral edema. LOWER EXTREMITIES: 2+ pulses, warm, well-perfused. No calf tenderness. +1 pitting peripheral edema bilaterally NEUROLOGICAL: Cranial nerves II-XII intact. Sensation was intact throughout face and body, muscular strength was 5/5 throughout. Reflexes 2+. Normal speech. Finger to nose test was intact. Laboratory Results - last 24 hr 01/12/17 17:30 Puncture Site Right radial ABG pH 7.45 ABG pCO2 at Pt Temp 43.2 ABG pO2 at Pt Temp 57.9 L D ABG HCO3 29.5 H ABG O2 Sat (Measured) 92.3 ABG O2 Content 17.3 ABG Base Excess 5.3 H Ricardo Test Positive O2 Delivery Device Nasal Oxygen Flow Rate 3l PEEP 0.0 ASSESSMENT/PLAN: Pt is a 86yo F with PMHx of COPD on home O2, asthma, dementia, lymphoma who presented from [facility] because of increasing dyspnea. # COPD Exacerbation - Patients worsening SOB and cough with drops on O2 sat could be secondary to the Right Lower Lobe Pneumonia or viral URI - Treating with: IV Methylprednisolone 40mg Q6, LABA/LAMA, Continue Symbicort ( steroid + LABA), Continue Tudorza (LAMA) - Consulted for Dr. Harding - Patient was given an incentive spirometer, placed on O2 4L NC - F/u ABG # Right Lower Lobe PNA - HCAP - Pt presented about 2 weeks ago with RLL PNA, CXR findings show the same PNA, likely it is the same PNA but unresolved; possibility that the patient had microaspirations again to same area causing new PNA. - Treating with: Cefepine 2g IV Q8, Azithromycin 500mg IV QD, Clindamycin 600mg IV Q8 - Speech and Swallow Evaluation # Dementia - Continue home Donepezil HCl 10mg QD - Ctoninue Memantine 10mg PO QD # History of HTN - Continue Diltiazem 240mg PO QD # History of HLD - Continue Atorvastatin 10mg QHS # History of Hypothyroidism - Continue Synthroid 75mcg QD # Hx of Lymphoma - Continue Mycophenalate 500mg PO QD #History of Overactive Bladder - Started Solifenacin 5mg PO QD (home med is Oxybutynin) #History of ANxiety and Depression - Continue Escitalopram 10mg PO QD - Continue Alprazolam 0.25mg PO TID # FEN - Fluids: IV NS 50ml/hr - Electrolytes: Monitor - Nutrition: Sodium controlled diet # Prophylaxis - DVT Prophylaxis: Heparin SQ - GI Prophylaxis: DC'd pantoprazole for GI prophylaxis, not needed --> if needed for GERD will reorder Visit type - Emergency Visit Emergency Visit: Yes ED Registration Date: 01/12/17 Care time: The patient presented to the Emergency Department on the above date and was hospitalized for further evaluation of their emergent condition. - New Patient This patient is new to me today: Yes Date on this admission: 01/12/17 - Critical Care Critical Care patient: No
[2017-01-12] MEDS: methylPREDNISolone NA SUCC 40 MG/1 ML VIAL IVPB SCH (22:01)
[2017-01-12] MEDS: CALCIUM 500MG/VIT-D 200 UNITS COMBO TABLET (FP) PO SCH (22:08)
[2017-01-12] MEDS: ATORVASTATIN CA 10 MG TABLET (FP) PO SCH (22:08)
[2017-01-12] MEDS: ALPRAZolam 0.25 MG TABLET PO SCH (22:08)
[2017-01-12] MEDS: SENNOSIDES 8.6MG TABLET (FP) PO SCH (22:08)
[2017-01-12] MEDS: GABAPENTIN 300 MG CAPSULE (FP) PO SCH (22:09)
[2017-01-12] MEDS: BUDESONIDE/FORMETEROL FUMARATE 80/4.5 mcg INHALER IH SCH (22:10)
[2017-01-12] MEDS: HEPARIN NA (PORCINE) 5,000 UNITS/ML 1ML VIAL SQ SCH (22:12)
[2017-01-13] MEDS: CEFEPIME 2 GM in DEXTROSE 5%-WATER - 100 ML IVPB SCH ×2 (01:53→09:25)
[2017-01-13] MEDS ORDERED: CEFEPIME HCL 2 GM VIAL (RESTRICTED TO ID) IVPB SCH (02:00)
[2017-01-13] MEDS: methylPREDNISolone NA SUCC 40 MG/1 ML VIAL IVPB SCH ×2 (03:33→09:21)
[2017-01-13] MEDS: LEVOTHYROXINE NA 75 MCG TABLET (FP) PO SCH (06:45)
[2017-01-13] MEDS: ALPRAZolam 0.25 MG TABLET PO SCH ×3 (06:45→21:56)
[2017-01-13 07:58] LABS: MCH 31.8 pg (25.7-33.7); MCHC 33.1 g/dl (32.0-36.0); MEAN PLT VOLUME 8.6 fl (7.5-11.1); PLATELET COUNT 191 K/MM3 (134-434); RDW 14.8 % (11.6-15.6)
[2017-01-13 08:30] LABS: ANION GAP 9 (8-16); CALCIUM 8.9 mg/dL (8.5-10.1); CO2 29 mmol/L (21-32); GLUCOSE,RANDOM 137 mg/dL (74-106); MAGNESIUM 2.5 mg/dL (1.8-2.4); PHOSPHOROUS 3.8 mg/dL (2.5-4.9)
[2017-01-13] MEDS ORDERED: PT OWN MED DRAWER 7, Y5N ONE ×2 (09:11→23:36)
[2017-01-13] MEDS: ACLIDINIUM BROMIDE 400 MCG/INH AERO.POWD IH SCH (09:17)
[2017-01-13] MEDS: BUDESONIDE/FORMETEROL FUMARATE 80/4.5 mcg INHALER IH SCH ×2 (09:17→22:30)
[2017-01-13] MEDS: DOCUSATE SODIUM 100 MG CAPSULE (FP) PO SCH (09:22)
[2017-01-13] MEDS: HEPARIN NA (PORCINE) 5,000 UNITS/ML 1ML VIAL SQ SCH ×2 (09:22→21:56)
[2017-01-13] MEDS: MYCOPHENOLATE MOFETIL 500 MG TABLET PO SCH (09:22)
[2017-01-13] MEDS: ASPIRIN 81 MG CHEWABLE TABLETS PO SCH (09:24)
[2017-01-13] MEDS: DONEPEZIL HCL 10 MG TABLET (FP) PO SCH (09:24)
[2017-01-13] MEDS: ESCITALOPRAM OXALATE 10 MG TABLET (FP) PO SCH (09:24)
[2017-01-13] MEDS: GABAPENTIN 300 MG CAPSULE (FP) PO SCH ×2 (09:25→21:56)
[2017-01-13] MEDS: AZITHROMYCIN IVPB 500 MG/250 ML D5W PRE-DOCKED IVPB SCH (09:25)
[2017-01-13] MEDS: CALCIUM 500MG/VIT-D 200 UNITS COMBO TABLET (FP) PO SCH ×2 (09:25→21:56)
[2017-01-13] MEDS: MEMANTINE HCL 10 MG TABLET (FP) PO SCH (09:25)
[2017-01-13] MEDS: SOLIFENACIN SUCCINATE 5 MG TAB (FP) PO SCH (09:25)
[2017-01-13] MEDS ORDERED: PATIENT'S OWN MEDICATION (NON-FORMULARY) (Olopatadine Hcl [Pataday] 2.5 ML) OP SCH (10:00)
[2017-01-13] MEDS ORDERED: CEFTRIAXONE 1,000 MG in DEXTROSE 5%-WATER - 50 ML IVPB SCH (10:00)
[2017-01-13] MEDS ORDERED: AZITHROMYCIN IVPB 500 MG in DEXTROSE 5%-WATER - 250 ML IVPB SCH (10:00)
[2017-01-13] MEDS ORDERED: cefTRIAXone 1 GM/50 ML BAG (PRE-DOCKED) IVPB SCH (10:00)
[2017-01-13] MEDS ORDERED: PANTOPRAZOLE 20 MG TABLET (FP) PO SCH (10:00)
[2017-01-13 10:59] LABS: PLATELET ESTIMATE ADEQUATE (NORMAL)
--- NOTE | 2017-01-13 11:46 | CONSULT ---
Consultation: REQUESTING PROVIDER: CC: "Couldn't breathe" CONSULT REQUEST: We have been asked to medically evaluate this patient for hypoxemic respiratory failure. Source: Patient, prior notes HISTORY OF PRESENT ILLNESS: 86 yo female w/ pmh of COPD on 2L O2, lymphoma, dementia, HTN, GERD who presented to the ED with acute on chronic hypoxemic respiratory failure secondary to suspected PNA/COPD exacerbation. At baseline, Pt endorses chronic non-productive cough and limited exercise tolerance, able to ambulate 20-30 feet before becoming SOB, on home O2 2L NC. Per pt, states she was sleeping and woke up w/ acute SOB, however gave few details due to being a poor historian ( dementia). Endorses a worsening of chronic non-productive cough as well. Denies any hx of LE edema, hemoptysis, fever, chills, lightheadness, nasal congestion, sore throat, palpitations, CP, N/V, abdominal pain, dysuria, changes in stooling. Endorses mild heat intolerance, 2 pillow orthopnea. Unknown sick contacts w/ no recent travel. Pt has a Hx of numerous hospitalizations for PNA/COPD exacerbations, most recently on 12/25 for CAP PNA at [facility]. She was managed with steroids, inhaled brochodilators, LABA/ICS and Abx for CAP. Improved and d/c'ed after two days on prednisone taper (now taking 15mg PO daily), Azithro, and home meds ( listed below). Pt endorses no hx of DVT/PE. Denies any prior intubations during hospitalizations. PMHx COPD on home O2 - diagnosed "many years ago" Churg-Eugenie? GERD HTN HLD Asthma Lymphoma Dementia Hypothyroidism Anemia PSHx Left lobectomy -> Resection for benign nodules Allergies Levaquin -> Hives Fam Hx Mother of stomach Ca 2 daughters, both healthy Social Hx 40 year smoking Hx. Stopped a few years ago. 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 No occupational exposure risks. Lives at [facility]. REVIEW OF SYSTEMS: CONSTITUTIONAL: Absent: fever, chills, diaphoresis, generalized weakness, malaise, loss of appetite, weight change HEENT: Absent: rhinorrhea, nasal congestion, throat pain, throat swelling, mouth swelling, ear pain, eye pain, CARDIOVASCULAR: Absent: chest pain, syncope, palpitations, irregular heart rate, lightheadedness , peripheral edema RESPIRATORY: Chronic cough, SOB, Dyspnea on exertion (20-30 ft), 2 pillow orthopnea Absent: wheezing, hemoptysis GASTROINTESTINAL: Absent: abdominal pain, abdominal distension, nausea, vomiting, diarrhea, constipation, melena, hematochezia GENITOURINARY: Absent: dysuria, frequency, urgency, hesitancy, hematuria MUSCULOSKELETAL: Absent: myalgia, arthralgia, joint swelling SKIN: Absent: rash, itching HEMATOLOGIC/IMMUNOLOGIC: Absent: easy bleeding, easy bruising, ENDOCRINE: Heat intolerance Absent: cold intolerance NEUROLOGIC: Absent: headache, focal weakness or paresthesias, dizziness PHYSICAL EXAMINATION Vital Signs - 24 hr 01/12/17 01/12/17 01/12/17 15:53 17:34 21:00 Temperature Pulse Rate Pulse Rate [ 98 H Apical] Respiratory 20 22 Rate Blood Pressure Blood Pressure 108/93 [Left Arm] O2 Sat by Pulse 95 93 L 93 L Oximetry (%) 01/12/17 01/13/17 01/13/17 21:14 01:00 06:00 Temperature 98.6 F 99.7 F H 98.2 F Pulse Rate 100 H 104 H 96 H Pulse Rate [ Apical] Respiratory 22 22 22 Rate Blood Pressure 140/80 150/90 140/80 Blood Pressure [Left Arm] O2 Sat by Pulse Oximetry (%) 01/13/17 08:00 Temperature 98.4 F Pulse Rate 99 H Pulse Rate [ Apical] Respiratory 20 Rate Blood Pressure 126/80 Blood Pressure [Left Arm] O2 Sat by Pulse Oximetry (%) GENERAL: Awake, alert, and fully oriented, in no acute distress on NC, laying in bed. HEAD: Normal with no signs of trauma. EYES: Pupils constricted, poorly reactive to light, sclera anicteric, conjunctiva clear. No lid lag. EARS, NOSE, THROAT: Ears normal, nares patent, oropharynx clear without exudates. Moist mucous membranes. NECK: Supple without lymphadenopathy, JVD, or masses. LUNGS: Bilateral rales, most prominent in RLL field. Decreased BL lung sounds, most notable in mid- and lower- LL escobar. Trace midline inspiratory/expiratory wheezes. Possible crackles in LLL field. No accessory muscle use. HEART: Regular rate and rhythm. Faint heart sounds. Normal S1 and S2 without murmur, rub or gallop. No displaced PMI. ABDOMEN: Soft, nontender, not distended, normoactive bowel sounds, no guarding, no rebound, no masses. No hepatomegaly or splenomegaly. MUSCULOSKELETAL: No bony deformities or tenderness. No CVA tenderness. Mild kyphoscoliosis. UPPER EXTREMITIES: 2+ pulses, warm, well-perfused. No cyanosis. No clubbing. Mild yellowing of the nail beds. Cap refill <2 seconds. No peripheral edema. LOWER EXTREMITIES: 2+ pulses, warm, well-perfused. No calf tenderness. No peripheral edema. Negative ronnie's sign. NEUROLOGICAL: Normal speech. Gait not evaluated PSYCHIATRIC: Cooperative. Good eye contact. Constricted affect. SKIN: Warm, dry, normal turgor, no rashes or lesions noted. Laboratory Results - last 24 hr 01/12/17 01/13/17 01/13/17 17:30 06:38 06:38 WBC 22.0 H RBC 4.02 Hgb 12.8 Hct 38.6 MCV 96.0 MCH 31.8 MCHC 33.1 RDW 14.8 Plt Count 191 MPV 8.6 Neutrophils % Y Lymphocytes % Y Puncture Site Right radial ABG pH 7.45 ABG pCO2 at Pt Temp 43.2 ABG pO2 at Pt Temp 57.9 L D ABG HCO3 29.5 H ABG O2 Sat (Measured) 92.3 ABG O2 Content 17.3 ABG Base Excess 5.3 H Ricardo Test Positive O2 Delivery Device Nasal Oxygen Flow Rate 3l PEEP 0.0 Sodium 139 Potassium 3.5 Chloride 101 Carbon Dioxide 29 Anion Gap 9 BUN 22 H D Creatinine 1.0 D Random Glucose 137 H D Calcium 8.9 Phosphorus 3.8 Magnesium 2.5 H Micro: V Blood cx pending x2 EKG: (01/12) - NSR. Rate 90-100. Normal axis. No RBBB/LBBB. Nrml AZ/QT interval. PVC noted. CXR: (01/12) - Chronic parenchymal lung disease in left hemithorax. New RLL consolidation. Active Medications Generic Name Dose Route Start Last Admin Trade Name Freq PRN Reason Stop Dose Admin Acetaminophen 650 mg 01/12/17 17:12 Tylenol - PO Q4H PRN FEVER OR PAIN Aclidinium Topping 1 puff 01/13/17 10:00 01/13/17 09:17 Tudorza - IH 1 puff DAILY BEVERLY Administration Albuterol Sulfate 1 amp 01/12/17 17:12 Ventolin 0.083% Nebulizer Soln - NEB Q4H PRN SHORT OF BREATH/WHEEZING Alprazolam 0.25 mg 01/12/17 22:00 01/13/17 06:45 Xanax - PO 0.25 mg TID BEVERLY Administration Aspirin 81 mg 01/13/17 10:00 01/13/17 09:24 Asa - PO 81 mg DAILY BEVERLY Administration Atorvastatin Calcium 10 mg 01/12/17 22:00 01/12/17 22:08 Lipitor - PO 10 mg HS BEVERLY Administration Azithromycin 500 mg 01/13/17 10:00 01/13/17 09:25 Zithromax 500mg Ivpb (Pre-Docked) IVPB 500 mg DAILY BEVERLY Administration Budesonide/Formoterol Fumarate 2 puff 01/12/17 22:00 01/13/17 09:17 Symbicort 80/4.5mcg - IH 2 puff BID BEVERLY Administration Calcium Carbonate/Cholecalciferol 1 tab 01/12/17 22:00 01/13/17 09:25 Os-Juan 500+D - PO 1 tab BID BEVERLY Administration Diltiazem HCl 240 mg 01/13/17 10:00 01/13/17 09:24 Cardizem Cd - PO 240 mg DAILY BEVERLY Administration Docusate Sodium 200 mg 01/13/17 10:00 01/13/17 09:22 Colace - PO 200 mg DAILY BEVERLY Administration Donepezil HCl 10 mg 01/13/17 10:00 01/13/17 09:24 Aricept - PO 10 mg DAILY BEVERLY Administration Escitalopram Oxalate 10 mg 01/13/17 10:00 01/13/17 09:24 Lexapro - PO 10 mg DAILY BEVERLY Administration Gabapentin 300 mg 01/12/17 22:00 01/13/17 09:25 Neurontin - PO 300 mg BID BEVERLY Administration Heparin Sodium (Porcine) 5,000 unit 01/12/17 22:00 01/13/17 09:22 Heparin - SQ 5,000 unit BID BEVERLY Administration Sodium Chloride 1,000 mls @ 50 mls/hr 01/12/17 17:15 01/12/17 18:31 Normal Saline - IV 01/13/17 17:14 50 mls/hr ASDIR BEVERLY Administration Clindamycin Phosphate 50 mls @ 100 mls/hr 01/13/17 14:00 Cleocin 600 Mg Premix Ivpb - IVPB Q8H-IV BEVERLY Cefepime HCl 2 gm/ Dextrose 100 mls @ 200 mls/hr 01/12/17 18:30 01/13/17 09:25 IVPB 200 mls/hr Q8H-IV BEVERLY Administration Levothyroxine Sodium 75 mcg 01/13/17 07:00 01/13/17 06:45 Synthroid - PO 75 mcg DAILY@0700 BEVERLY Administration Memantine 10 mg 01/13/17 10:00 01/13/17 09:25 Namenda - PO 10 mg DAILY BEVERLY Administration Methylprednisolone Sodium Succinate 40 mg 01/12/17 21:00 01/13/17 09:21 Solu-Medrol - IVPB 40 mg Q6H-IV BEVERLY Administration Mycophenolate Mofetil 500 mg 01/13/17 10:00 01/13/17 09:22 Cellcept - PO 500 mg DAILY BEVERLY Administration Non-Formulary Medication 2.5 ml 01/13/17 10:00 Olopatadine Hcl [Pataday] OP DAILY BEVERLY Senna 2 tab 01/12/17 22:00 01/12/17 22:08 Senna - PO 2 tab HS BEVERLY Administration Solifenacin 5 mg 01/13/17 10:00 01/13/17 09:25 Vesicare - PO 5 mg DAILY BEVERLY Administration ASSESSMENT/PLAN: Assessment: 86 yo female w/ pmh of COPD on 2L O2, lymphoma, dementia, HTN, GERD who presented to the ED with acute on chronic hypoxemic respiratory failure secondary to suspected PNA/COPD exacerbation. PE notable for BL rales and decreased breath sounds on RLL, w/ no LE edema. Labs notable for elevated WBC ( 22) w/ left shift on diff. Imaging notable for RLL consolidation and L pleural effusion. Pt frequently admitted to hospital for PNA vs. COPD exacerbation over last few years. Hypoxemic respiratory failure likely secondary to active infectious lung process further complicated by baseline chronic COPD. Problem List: Acute on Chronic hypoxemic respiratory failure Pneumonia Suspected COPD exacerbation Chronic Vasculitis? GERD HTN Hypothyroidism Anemia Plan: #Hypoxemic respiratory failure/COPD exacerbation? - O2 support. Titrate to O2 >94% - Inhaled brochodilators - Steroids #Pneumonia - Trend WBC, fever curve - Pneumo, Legionella Ag - Sputum Cx - Serial CXRs - Abx for HCAP #Vasculitis/Churg Eugenie? - IgE levels Jermaine Jennings MD, PGY1 Discussed with attending, Dr. Corona Dispo: We will continue to follow the patient. Thank you for this consultative opportunity. Problem List - Problems (1) Acute respiratory distress Code(s): R06.00 - DYSPNEA, UNSPECIFIED (2) Right lower lobe pneumonia Code(s): J18.1 - LOBAR PNEUMONIA, UNSPECIFIED ORGANISM Qualifiers: Pneumonia type: due to unspecified organism Qualified Code(s): J18.1 - Lobar pneumonia, unspecified organism (3) Acute exacerbation of COPD with asthma Code(s): J44.1 - CHRONIC OBSTRUCTIVE PULMONARY DISEASE W (ACUTE) EXACERBATION J45.901 - UNSPECIFIED ASTHMA WITH (ACUTE) EXACERBATION Visit type - Emergency Visit Emergency Visit: No - New Patient This patient is new to me today: Yes Date on this admission: 01/13/17 - Critical Care Critical Care patient: No
[2017-01-13] MEDS ORDERED: CLINDAMYCIN 600MG PREMIX IVPB 50 ML IVPB SCH (14:00)
[2017-01-13] MEDS ORDERED: VANCOMYCIN 1 GRAM (PRE-DOCKED) 250 ML IVPB ONE (14:00)
--- NOTE | 2017-01-13 14:33 | PN ---
Teaching Attending Note Name of Resident: Harini Hernadez ATTENDING PHYSICIAN STATEMENT I saw and evaluated the patient. I reviewed the resident's note and discussed the case with the resident. I agree with the resident's findings and plan as documented. SUBJECTIVE: no fever or chills . reports improvement in her SOB . denies cough or sputum production. no chest pain. OBJECTIVE: NAD , awake , alert , knows she is in hospital , does not know her age . CV: RRR. Lungs: minimal end expiratory wheezes in Lower lobes and prolonged exp phase . otherwise clear . ABd: soft, NT, ND ,, NL BS Ext : jasbir mayra No lymphadenopathy in neck, axillae , or groins ASSESSMENT AND PLAN: 86 y/o lady with h/o COPD , Lymphoma, dementia , HTN , HLP and other medical problems who presented with SOB. She was found tohave acute COPD exacerbation and PNA 1- Acute hypoxic resp failure, due to acute COPD exacerbation and HCAP . - Steroids , prednisone 40 BID . - cont symbicort , and Tudorza - cont ALb Nebs - She mentions a daignosis of Churg Fanny , will D/W Pulm - cont ABx to cover HCAP and to cover aspiration PNA - CT scan of chest showed R upper posterior infiltrates. - speech eval for possible aspiration - follow blood cx - leukocytosis has worsened , probably due to steroids 2- HTN : cont cardizem 3- Hypothyroidism: cont synthroid 4- ON CT scan of chest , a soft tissue mass was seen on inferior R breast . will perform breast exam , and discuss with family and PCP about further w/u ( seen on previous CT scan , will need to know if w/u was done to r/o breast cancer , and goals of care ) HLOC
--- NOTE | 2017-01-13 14:56 | PN ---
Physical Exam: SUBJECTIVE: Patient seen and examined this AM. SHe has no new complaints. STates that she is still coughing, but she is breathing much better. Nurse stated that there were no acute events overnight OBJECTIVE: Vital Signs Period Temp Pulse Resp BP Sys/Bahena Pulse Ox Last 24 Hr 98.1 F-99.7 F 88-104 20-22 108-150/67-93 93-95 GENERAL: Awake, alert, and fully oriented, in no acute distress. Patient was lying in bed, coughing. EYES: Pupils equal, round and reactive to light, extraocular movements intact LUNGS: Intermittent wheezing in lower lung escobar. Basilar crackles. HEART: Regular rate and rhythm, normal S1 and S2, skipped beats at times, without murmur, rub or gallop. ABDOMEN: Soft, nontender, distended, normoactive bowel sounds MUSCULOSKELETAL: Normal range of motion at all joints. 5/5 muscle strength in all extremities BREAST: Pt was informed about exam and gave verbal consent. No masses in L axillary area + Left breast. Small 2x2cm round, mobile mass present in region of L breast at 7pm position from the R nipple. UPPER EXTREMITIES: 2+ pulses, warm, well-perfused. No cyanosis. No clubbing. No peripheral edema. LOWER EXTREMITIES: 2+ pulses, warm, well-perfused. No calf tenderness. NEUROLOGICAL: Cranial nerves II-XII intact. Sensation was intact throughout face and body, muscular strength was 5/5 throughout. Reflexes 2+. Normal speech. Finger to nose test was intact. Laboratory Results - last 24 hr 01/12/17 01/13/17 01/13/17 17:30 06:38 06:38 WBC 22.0 H RBC 4.02 Hgb 12.8 Hct 38.6 MCV 96.0 MCH 31.8 MCHC 33.1 RDW 14.8 Plt Count 191 MPV 8.6 Neutrophils % 88.0 H Lymphocytes % 4.0 L D Monocytes % 1.0 L D Band Neutrophils 4.0 D Differential Comment Slide scanned Platelet Estimate Adequate Puncture Site Right radial ABG pH 7.45 ABG pCO2 at Pt Temp 43.2 ABG pO2 at Pt Temp 57.9 L D ABG HCO3 29.5 H ABG O2 Sat (Measured) 92.3 ABG O2 Content 17.3 ABG Base Excess 5.3 H Ricardo Test Positive O2 Delivery Device Nasal Oxygen Flow Rate 3l PEEP 0.0 Sodium 139 Potassium 3.5 Chloride 101 Carbon Dioxide 29 Anion Gap 9 BUN 22 H D Creatinine 1.0 D Random Glucose 137 H D Calcium 8.9 Phosphorus 3.8 Magnesium 2.5 H Active Medications Generic Name Dose Route Start Last Admin Trade Name Freq PRN Reason Stop Dose Admin Acetaminophen 650 mg 01/12/17 17:12 Tylenol - PO Q4H PRN FEVER OR PAIN Aclidinium [place] 1 puff 01/13/17 10:00 01/13/17 09:17 Tudorza - IH 1 puff DAILY BEVERLY Administration Albuterol Sulfate 1 amp 01/12/17 17:12 Ventolin 0.083% Nebulizer Soln - NEB Q4H PRN SHORT OF BREATH/WHEEZING Alprazolam 0.25 mg 01/12/17 22:00 01/13/17 13:44 Xanax - PO 0.25 mg TID BEVERLY Administration Aspirin 81 mg 01/13/17 10:00 01/13/17 09:24 Asa - PO 81 mg DAILY BEVERLY Administration Atorvastatin Calcium 10 mg 01/12/17 22:00 01/12/17 22:08 Lipitor - PO 10 mg HS BEVERLY Administration Azithromycin 500 mg 01/13/17 10:00 01/13/17 09:25 Zithromax 500mg Ivpb (Pre-Docked) IVPB 500 mg DAILY BEVERLY Administration Budesonide/Formoterol Fumarate 2 puff 01/12/17 22:00 01/13/17 09:17 Symbicort 80/4.5mcg - IH 2 puff BID BEVERLY Administration Calcium Carbonate/Cholecalciferol 1 tab 01/12/17 22:00 01/13/17 09:25 Os-Juan 500+D - PO 1 tab BID BEVERLY Administration Diltiazem HCl 240 mg 01/13/17 10:00 01/13/17 09:24 Cardizem Cd - PO 240 mg DAILY BEVERLY Administration Docusate Sodium 200 mg 01/13/17 10:00 01/13/17 09:22 Colace - PO 200 mg DAILY BEVERLY Administration Donepezil HCl 10 mg 01/13/17 10:00 01/13/17 09:24 Aricept - PO 10 mg DAILY BEVERLY Administration Escitalopram Oxalate 10 mg 01/13/17 10:00 01/13/17 09:24 Lexapro - PO 10 mg DAILY BEVERLY Administration Gabapentin 300 mg 01/12/17 22:00 01/13/17 09:25 Neurontin - PO 300 mg BID BEVERLY Administration Heparin Sodium (Porcine) 5,000 unit 01/12/17 22:00 01/13/17 09:22 Heparin - SQ 5,000 unit BID BEVERLY Administration Sodium Chloride 1,000 mls @ 50 mls/hr 01/12/17 17:15 01/12/17 18:31 Normal Saline - IV 01/13/17 17:14 50 mls/hr ASDIR BEVERLY Administration Clindamycin Phosphate 50 mls @ 100 mls/hr 01/13/17 14:00 01/13/17 13:44 Cleocin 600 Mg Premix Ivpb - IVPB 100 mls/hr Q8H-IV BEVERLY Administration Cefepime HCl 2 gm/ Dextrose 100 mls @ 200 mls/hr 01/12/17 18:30 01/13/17 09:25 IVPB 200 mls/hr Q8H-IV BEVERLY Administration Levothyroxine Sodium 75 mcg 01/13/17 07:00 01/13/17 06:45 Synthroid - PO 75 mcg DAILY@0700 BEVERLY Administration Memantine 10 mg 01/13/17 10:00 01/13/17 09:25 Namenda - PO 10 mg DAILY BEVERLY Administration Mycophenolate Mofetil 500 mg 01/13/17 10:00 01/13/17 09:22 Cellcept - PO 500 mg DAILY BEVERLY Administration Non-Formulary Medication 2.5 ml 01/13/17 10:00 Olopatadine Hcl [Pataday] OP DAILY [facility] Prednisone 40 mg 01/13/17 22:00 Deltasone - PO BID BEVERLY Senna 2 tab 01/12/17 22:00 01/12/17 22:08 Senna - PO 2 tab HS BEVERLY Administration Solifenacin 5 mg 01/13/17 10:00 01/13/17 09:25 Vesicare - PO 5 mg DAILY BEVERLY Administration ASSESSMENT/PLAN: Pt is a 86yo F with PMHx of COPD on home O2, asthma, dementia, lymphoma who presented from [facility] because of increasing dyspnea. # COPD Exacerbation - Patients worsening SOB and cough with drops on O2 sat could be secondary to a pneumonia or viral URI - Treating with: Prednisone 40mg PO BID, Continue Symbicort (steroid + LABA), Continue Tudorza (LAMA). Will call pharmacy to reconcile medications. - Pulmonology consultation appreciated - Patient was given an incentive spirometer, placed on O2 4L NC # Possible Right Lower Lobe PNA - HCAP - Pt presented about 2 weeks ago with RLL PNA. A CT Chest noted small atelectatic consolidation in the RLL, which looked exagerated on the initial CXR due to patient rotation. There is also bilateral pleural effusions L > R. CT also shows no obstruction of the airways. Because patient is at risk, - It is possible that the consolidation is due to HCAP PNA or due to atelectasis. Though initial white count and tachycardia, HCAP is still a strong possibility. Still possibility of microaspiration. Pulmonary recommends sputum cultures. - Treating with: Pip/Tazo IV Q8 and Azithromycin 500mg IV QD per ID - Speech and Swallow Evaluation states patient can continue Na+ restricted diet # R Breast Mass - Will call family to ask if the breast mass has been worked up in the past. If not, will speak to Dr. Alvarado about mammography first vs going straight to biopsy. # Dementia - Continue home Donepezil HCl 10mg QD - Continue Memantine 10mg PO QD # History of HTN - Continue Diltiazem 240mg PO QD # History of HLD - Continue Atorvastatin 10mg QHS # History of Hypothyroidism - Continue Synthroid 75mcg QD # Hx of Lymphoma - Continue Mycophenalate 500mg PO QD #History of Overactive Bladder - Started Solifenacin 5mg PO QD (home med is Oxybutynin) #History of ANxiety and Depression - Continue Escitalopram 10mg PO QD - Continue Alprazolam 0.25mg PO TID # FEN - Fluids: None - Electrolytes: Monitor - Nutrition: Sodium controlled diet # Prophylaxis - DVT Prophylaxis: Heparin SQ - GI Prophylaxis: Not needed Visit type - Emergency Visit Emergency Visit: No - New Patient This patient is new to me today: No - Critical Care Critical Care patient: No - Discharge Referral Referred to [facility] No
--- NOTE | 2017-01-13 15:00 | PN ---
<Neo Horn - Last Filed: 01/13/17 15:24> Teaching Attending Note Name of Resident: Jermaine Jennings ATTENDING PHYSICIAN STATEMENT I saw and evaluated the patient. I reviewed the resident's note and discussed the case with the resident. I agree with the resident's findings and plan as documented. PULMONARY IMP ACUTE ON CHRONIC HYPOXEMIC RESPIRATORY FAILURE COPD PNEUMONIA HTN DEMENTIA GERD LYMPHOMA R BREAST MASS PLAN IV ANTIBIOTICS INHALED BRONCHODILATORS PREDNISONE NASAL O2 SPUTUM C+S DR HORN Problem List - Problems (1) Acute respiratory distress Code(s): R06.00 - DYSPNEA, UNSPECIFIED (2) Anxiety Code(s): F41.9 - ANXIETY DISORDER, UNSPECIFIED (3) COPD (chronic obstructive pulmonary disease) Code(s): J44.9 - CHRONIC OBSTRUCTIVE PULMONARY DISEASE, UNSPECIFIED Qualifiers : COPD type: unspecified COPD Qualified Code(s): J44.9 - Chronic obstructive pulmonary disease, unspecified (4) Right lower lobe pneumonia Code(s): J18.1 - LOBAR PNEUMONIA, UNSPECIFIED ORGANISM Qualifiers: Pneumonia type: due to unspecified organism Qualified Code(s): J18.1 - Lobar pneumonia, unspecified organism (5) COPD with acute exacerbation Code(s): J44.1 - CHRONIC OBSTRUCTIVE PULMONARY DISEASE W (ACUTE) EXACERBATION (6) Coughing Code(s): R05 - COUGH (7) Dementia Code(s): F03.90 - UNSPECIFIED DEMENTIA WITHOUT BEHAVIORAL DISTURBANCE Qualifiers: Dementia type: Alzheimer's disease Alzheimer's disease onset: unspecified onset Dementia behavioral disturbance: without behavioral disturbance Qualified Code(s): G30.9 - Alzheimer's disease, unspecified; F02.80 - Dementia in other diseases classified elsewhere without behavioral disturbance (8) Hypercholesteremia Code(s): E78.0 - PURE HYPERCHOLESTEROLEMIA * DO NOT USE * (9) Hypertension Code(s): I10 - ESSENTIAL (PRIMARY) HYPERTENSION (10) Shortness of breath Code(s): R06.02 - SHORTNESS OF BREATH (11) Acute on chronic respiratory failure with hypoxemia Code(s): J96.21 - ACUTE AND CHRONIC RESPIRATORY FAILURE WITH HYPOXIA <Lucius Eubanks - Last Filed: 01/13/17 16:50> Teaching Attending Note ATTENDING PHYSICIAN STATEMENT I saw and evaluated the patient. I reviewed the resident's note and discussed the case with the resident. I agree with the resident's findings and plan as documented. SUBJECTIVE: OBJECTIVE: ASSESSMENT AND PLAN:
--- NOTE | 2017-01-13 16:35 | PN ---
Progress Note (short form) - Note Progress Note: ID Consult dictated Acute exacerbation COPD Recurrent pneumonia , possible HCAP Hx RUL lung resection ? Hx Vasculitis on cellcept/ chronic prednisone Obtain sputum c/s, legionella ag Empiric zithromax/ zosyn Bronchodilators/ steroids
--- NOTE | 2017-01-13 16:43 | CONSULT ---
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 Cardiovascular: Yes: Pulmonary Hypertension, HTN, Hyperlipdemia Pulmonary: Yes: COPD, O2 Dependent ...: No Heme/Onc: Yes: Other (Lymphoma) Psych: Yes: Anxiety, Panic Musculoskeletal: Yes: Other (h/o of foot drop) - Past Surgical History Past Surgical History: Yes: Thoracotomy - Smoking History Smoking history: Former smoker Have you smoked in the past 12 months: No Aproximately how many cigarettes per day: 0 If you are a former smoker, when did you quit?: 45 years ago - Alcohol/Substance Use Hx Alcohol Use: No History - Admission Reason For Visit: PNEUMONIA - Hearing Hearing: Normal Hearing Aide: No With Patient: No Speech Evaluation - Communication Primary Language: TAMAZIGHT Communication: Yes: Within Normal Limits Oral Expression Ability: Yes: No Impairment - Speech Production Apraxia: No Able to Make Needs Known: Yes: WNL Intelligibility: Yes: WNL - Speech Characteristics Voice Loudness: Normal Voice Pitch: Yes: Normal Voice Phonatory-based Quality: Yes: Normal Speech Pattern: Normal Nasal Resonance: Normal Articulation: Yes: Precise Dysfluency: Yes: Tonic Rate of Speech: Intact - Language/Auditory Comprehension Follows: Yes: 1 Stage Simple Commands Observation: Able to respond to yes/no queries: Yes, Yes/No Confusion: No, Comprehends Conversational Speech: Yes, Benefits from Slow Speech: No, Benefits from Repetiton: No, Benefits from Increased Volume of Speech: No - Language/Verbal Expression Able to Respond to Simple Queries: Yes: WNL Able to Communicate Wants and Needs: Yes: WNL Functional Communication Status: Yes: WNL Aware of Errors: Yes Attempts to Correct Errors: Yes Written Expression: not examined Oral Expression: WFL with some confusion as to date and time. Reading Comprehension: not examined Calculations: not examined - Memory/Perception computer terminal operator Memory: Yes: Mildly Impaired Short Term Memory: Yes: Mildly Impaired - Swallow Evaluation/Bedside Assessment Current Nutritional Intake: Regular, Thin Liquids Oral Secretions: Yes: WFL Tracheostomy Present: No Patient on Ventilator: No Dentition: Yes: Adequate, Dental Appliance Upper, Dental Appliance Lower Facial Symmetry at Rest: Symmetrical Facial Symmetry on Retraction: Symmetrical Facial Movement: Controlled Sensation: Normal Facial Comment: WFL for speech and swallowing purposes. Jaw Position: Closed at Rest Against Resistance Opening: Normal Against Resistance Closing: Normal Pucker Lips: Normal Smile: Normal Lips, Comment: WFL for speech and swallowing purposes. Lingual Movement: Normal Lingual Speed of Movement: Normal Lingual Movement Strgth Against Opposition: Normal Lingual Movement Characteristics: Normal Lingual Comment: WFL for speech and swallowing purposes. Soft Palate Description: Normal Color, Normal Arch Hard Palate Description: Normal Color, Normal Arch Gag Reflex: Strong Velopharyngeal Movement: Normal Laryngeal Elevation: WFL Laryngeal Movement: Able to Palpate Needs Assistance: Yes Rate of Intake: WFL Bolus Size: WFL Labial Seal: WFL Chewing: WFL Oral Prep Time: WFL A-P Transit: WFL Pocketing: None Timing of Swallow: WFL Coughing/Throat Clear: No Change in Voice: No Other Findings/Remarks: 86 yo female seen at bedside for swallow eval to rule out dysphagia. Pt is verbal, A&Ox2 with some confusion and cooperative. PMHX includes COPD, dementia , depression/anxiety anemia, GERD, HTN, HLD admitted to [facility] for SOB and possible PNA (second within 30 days). Pt presents with good airway protection with volitional cough and vocal quality is WNL. Pt given po trials of pureed and regular solids with minimal assistance revealed , good acceptance, adequate mastication and A-P transport. Pharyngeal swallows appears timely with no coughing or changes in voicing or respiration at this time. PO trials of thin liquids via cup and straw with minimal assistance was unremarkable for dysphagia and /or aspiration at this time. Recommendations - Speech Evaluation, Impression/Plan Impression: 86 yo is able to tolerate purees, regular solids and thin liquids with minimal assistance without s/s of dysphagia and / or aspiration at this time. Business Analyst Sales Operations Goals: tolerate the least restrictive diet without s/s of aspiration Short Term Goals: tolerate purees, regular solids (NA controlled) and thin liquids without s/s of aspiration - Dysphagia Impressions/Plan Swallowing Skills: [facility] Dysphagia Impressions: No Impairment, Minimal Impairment (Secondary to GERD dx) , Suspect Aspiration (possibility esophageal dysphagia secondary to GERD.) *Silent aspiration: cannot be R/O at bedside (possibility esophageal dysphagia secondary to GERD.) Dysphagia Treatment Plan: Small Bites, Safe Rate, Elevate HOB during feed, Other (Monitor pulmonary status and nutritional intake.) Dysphagia Evaluation Summary: Continue current diet (NA controlled) with thin liquids at tolerated. Observe standard aspiration precautions with 30-60 minutes upright after the meals for safety. Results given verbally to zinc furnace charger Sherita and to pcp via chart. Recommendations: Modified Barium Swallow (Consider) - Recommendations Diet Consistency: Regular Medication Administration: Whole with water Liquids: Thin Liquids
[2017-01-13] MEDS: PIPERACILLIN/TAZOB 3.375 GM 50 ML IVPB SCH (17:23)
[2017-01-13] MEDS: SENNOSIDES 8.6MG TABLET (FP) PO SCH (21:55)
[2017-01-13] MEDS: ATORVASTATIN CA 10 MG TABLET (FP) PO SCH (21:56)
[2017-01-13] MEDS: predniSONE 20 MG TABLET (UD) PO SCH (21:56)
[2017-01-14] MEDS: PIPERACILLIN/TAZOB 3.375 GM 50 ML IVPB SCH ×3 (02:09→18:01)
[2017-01-14] MEDS: ALPRAZolam 0.25 MG TABLET PO SCH ×3 (06:24→21:21)
[2017-01-14] MEDS: LEVOTHYROXINE NA 75 MCG TABLET (FP) PO SCH (06:24)
[2017-01-14] MEDS ORDERED: PT OWN MED DRAWER 7, Y5N ONE ×2 (07:04→10:06)
[2017-01-14 07:33] LABS: MCH 32.4 pg (25.7-33.7); MCHC 33.6 g/dl (32.0-36.0); MEAN CELL VOLUME 96.3 fl (80-96); MEAN PLT VOLUME 8.4 fl (7.5-11.1); PLATELET COUNT 203 K/MM3 (134-434); RDW 14.6 % (11.6-15.6); WHITE BLOOD COUNT 17.4 K/mm3 (4.0-10.0)
[2017-01-14] MEDS ORDERED: predniSONE 20 MG TABLET (UD) PO SCH (10:00)
[2017-01-14] MEDS: ESCITALOPRAM OXALATE 10 MG TABLET (FP) PO SCH (10:19)
[2017-01-14] MEDS: MEMANTINE HCL 10 MG TABLET (FP) PO SCH (10:20)
[2017-01-14] MEDS: CALCIUM 500MG/VIT-D 200 UNITS COMBO TABLET (FP) PO SCH ×2 (10:20→21:21)
[2017-01-14] MEDS: DONEPEZIL HCL 10 MG TABLET (FP) PO SCH (10:20)
[2017-01-14] MEDS: GABAPENTIN 300 MG CAPSULE (FP) PO SCH ×2 (10:20→21:21)
[2017-01-14] MEDS: DOCUSATE SODIUM 100 MG CAPSULE (FP) PO SCH (10:20)
[2017-01-14] MEDS: predniSONE 20 MG TABLET (UD) PO SCH ×2 (10:20→21:21)
[2017-01-14] MEDS: ASPIRIN 81 MG CHEWABLE TABLETS PO SCH (10:20)
[2017-01-14] MEDS: BUDESONIDE/FORMETEROL FUMARATE 80/4.5 mcg INHALER IH SCH ×2 (10:21→21:21)
[2017-01-14] MEDS: AZITHROMYCIN IVPB 500 MG/250 ML D5W PRE-DOCKED IVPB SCH (10:21)
[2017-01-14] MEDS: MYCOPHENOLATE MOFETIL 500 MG TABLET PO SCH (10:21)
[2017-01-14] MEDS: SOLIFENACIN SUCCINATE 5 MG TAB (FP) PO SCH (10:21)
[2017-01-14] MEDS: HEPARIN NA (PORCINE) 5,000 UNITS/ML 1ML VIAL SQ SCH ×2 (10:22→21:21)
[2017-01-14] MEDS: ACLIDINIUM BROMIDE 400 MCG/INH AERO.POWD IH SCH ×2 (10:22→11:38)
--- NOTE | 2017-01-14 10:43 | PN ---
Progress Note (short form) - Note Progress Note: quite forgetful reports she always has trouble with her breathing resident of [facility] recent admission 12/24 to 12/27 for RLL pneumonia- treated with ceftriaxone and zithromax, d/anurag on zithromax has nonproductive cough Vital Signs Period Temp Pulse Resp BP Sys/Bahena Pulse Ox Last 24 Hr 97.7 F-98.4 F 82-90 12-20 130-136/67-80 95 cor-rrr lungs bilateral rhonchi and wheezes abd soft,nt ext no edema CBC, BMP 01/14/17 06:00 01/13/17 06:38 Microbiology 01/12/17 11:55 Blood - Peripheral Venous Blood Culture - Preliminary NO GROWTH OBTAINED AFTER 24 HOURS, INCUBATION TO CONTINUE FOR 4 DAYS. 01/12/17 11:24 Blood - Peripheral Venous Blood Culture - Preliminary NO GROWTH OBTAINED AFTER 24 HOURS, INCUBATION TO CONTINUE FOR [address] with bibasilar consolidation, ?right breast mass a/p copd exacerbation pneumonia ?right breast mass history of wegeners granulomatosis and lymphoma in the past levaquin allergy hx lobectomy dementia continue zosyn/zithromax f/u cultures urinary antigens
--- NOTE | 2017-01-14 11:01 | PN ---
Physical Exam: SUBJECTIVE: Patient seen and examined this AM. Patient states her breathing has improved, but nurse states that the patient is not compliant with her nasal cannula. Spoke to patient about the importance of Oxygen and the patient expressed understanding. No CP, no fevers, no chills, less coughing. Spoke to patient about the breast mass, pt is unsure whether it has been worked up, requested us to talk to her daughter Chapis. OBJECTIVE: Vital Signs Period Temp Pulse Resp BP Sys/Bahena Pulse Ox Last 24 Hr 97.7 F-98.4 F 82-90 12-20 130-136/67-80 95 GENERAL: Awake, alert, and oriented only to person and place, in no acute distress. Patient was lying in bed, not coughing. Throughout the exam the patient would intermittently stop the examiner and ask "Am I in the hospital?". EYES: Pupils equal, round and reactive to light, extraocular movements intact LUNGS: L sided rhonchi/rales on mid/basilar lung escobar. R sided rhonchi/rales on R base. No wheezes HEART: Regular rate and rhythm, normal S1 and S2, skipped beats at times, without murmur, rub or gallop. ABDOMEN: Soft, nontender, distended, normoactive bowel sounds MUSCULOSKELETAL: Normal range of motion at all joints. 5/5 muscle strength in all extremities BREAST: Breast exam performed on 01/13/17 showed no masses in L axillary area + Left breast. Small 2x2cm round, mobile mass present in region of L breast at 7pm position from the R nipple. UPPER EXTREMITIES: 2+ pulses, warm, well-perfused. No cyanosis. No clubbing. No peripheral edema. LOWER EXTREMITIES: 2+ pulses, warm, well-perfused. No calf tenderness. NEUROLOGICAL: Cranial nerves II-XII intact. Sensation was intact throughout face and body, muscular strength was 5/5 throughout. Reflexes 2+. Normal speech. Finger to nose test was intact. Laboratory Results - last 24 hr 01/14/17 06:00 WBC 17.4 H RBC 3.89 Hgb 12.6 Hct 37.5 MCV 96.3 H MCH 32.4 MCHC 33.6 RDW 14.6 Plt Count 203 MPV 8.4 Active Medications Generic Name Dose Route Start Last Admin Trade Name Freq PRN Reason Stop Dose Admin Acetaminophen 650 mg 01/12/17 17:12 Tylenol - PO Q4H PRN FEVER OR PAIN Aclidinium [place] 1 puff 01/13/17 10:00 01/14/17 10:22 Tudorza - IH 1 puff DAILY BEVERLY Administration Albuterol Sulfate 1 amp 01/12/17 17:12 Ventolin 0.083% Nebulizer Soln - NEB Q4H PRN SHORT OF BREATH/WHEEZING Alprazolam 0.25 mg 01/12/17 22:00 01/14/17 06:24 Xanax - PO 0.25 mg TID BEVERLY Administration Aspirin 81 mg 01/13/17 10:00 01/14/17 10:20 Asa - PO 81 mg DAILY BEVERLY Administration Atorvastatin Calcium 10 mg 01/12/17 22:00 01/13/17 21:56 Lipitor - PO 10 mg HS BEVERLY Administration Azithromycin 500 mg 01/13/17 10:00 01/14/17 10:21 Zithromax 500mg Ivpb (Pre-Docked) IVPB 500 mg DAILY BEVERLY Administration Budesonide/Formoterol Fumarate 2 puff 01/12/17 22:00 01/14/17 10:21 Symbicort 80/4.5mcg - IH 2 puff BID BEVERLY Administration Calcium Carbonate/Cholecalciferol 1 tab 01/12/17 22:00 01/14/17 10:20 Os-Juan 500+D - PO 1 tab BID BEVERLY Administration Diltiazem HCl 240 mg 01/13/17 10:00 01/14/17 10:20 Cardizem Cd - PO 240 mg DAILY BEVERLY Administration Docusate Sodium 200 mg 01/13/17 10:00 01/14/17 10:20 Colace - PO 200 mg DAILY BEVERLY Administration Donepezil HCl 10 mg 01/13/17 10:00 01/14/17 10:20 Aricept - PO 10 mg DAILY BEVERLY Administration Escitalopram Oxalate 10 mg 01/13/17 10:00 01/14/17 10:19 Lexapro - PO 10 mg DAILY BEVERLY Administration Gabapentin 300 mg 01/12/17 22:00 01/14/17 10:20 Neurontin - PO 300 mg BID BEVERLY Administration Heparin Sodium (Porcine) 5,000 unit 01/12/17 22:00 01/14/17 10:22 Heparin - SQ 5,000 unit BID BEVERLY Administration Piperacillin Sod/Tazobactam Sod 50 mls @ 100 mls/hr 01/13/17 18:00 01/14/17 10: 21 Zosyn 3.375gm Ivpb (Pre-Docked) IVPB 100 mls/hr Q8H-IV BEVERLY Administration Protocol Levothyroxine Sodium 75 mcg 01/13/17 07:00 01/14/17 06:24 Synthroid - PO 75 mcg DAILY@0700 BEVERLY Administration Memantine 10 mg 01/13/17 10:00 01/14/17 10:20 Namenda - PO 10 mg DAILY BEVERLY Administration Mycophenolate Mofetil 500 mg 01/13/17 10:00 01/14/17 10:21 Cellcept - PO 500 mg DAILY BEVERLY Administration Non-Formulary Medication 2.5 ml 01/13/17 10:00 Olopatadine Hcl [Pataday] OP DAILY BEVERLY Prednisone 40 mg 01/13/17 22:00 01/14/17 10:20 Deltasone - PO 40 mg BID BEVERLY Administration Senna 2 tab 01/12/17 22:00 01/13/17 21:55 Senna - PO 2 tab HS BEVERLY Administration Solifenacin 5 mg 01/13/17 10:00 01/14/17 10:21 Vesicare - PO 5 mg DAILY BEVERLY Administration ASSESSMENT/PLAN: Pt is a 86yo F with PMHx of COPD on home O2, asthma, dementia, lymphoma who presented from [facility] because of increasing dyspnea. # COPD Exacerbation - Patients worsening SOB and cough with drops on O2 sat could be secondary to a pneumonia or viral URI - Treating with: Prednisone 40mg PO BID, Continue Symbicort (steroid + LABA), Continue Tudorza (LAMA), 4L O2 (patient is not compliant with O2). Patient normally takes Spiriva + Tudorza, confirmed with pharmacy and [facility]. At discharge, will correct inhalers, and not discharge her on both. - Will speak to Dr. Harding on Monday to confirm why the patient is on standing Prednisone 15mg PO QD, will also ask why the patient is on Cellcept ( Mycophenalat). # Possible Right Lower Lobe PNA - HCAP - Pt presented about 2 weeks ago with RLL PNA. A CT Chest noted small atelectatic consolidation in the RLL, which looked exagerated on the initial CXR due to patient rotation. There is also bilateral pleural effusions L > R. CT also shows no obstruction of the airways. Because patient is at risk, - It is possible that the consolidation is due to HCAP PNA or due to atelectasis. Though initial white count and tachycardia, HCAP is still a strong possibility. Still possibility of microaspiration. Pulmonary recommends sputum cultures, but pt is not producing sputum - Treating with: Pip/Tazo IV Q8 and Azithromycin 500mg IV QD per ID - Speech and Swallow Evaluation states patient can continue Na+ restricted diet # Leukocytosis - Initial leukocytosis could be from underlying infection, after IV methylprednisolone white count jumped to 22, after decreasing the prednisone dose, back down to 17.4 # R Breast Mass - Spoke with Chapis - pts daughter ( ), explained to her that we found a small 2x2cm round, mobile mass in R breast. Daughter states that pt had mammogram in 2011 which was negative, and has never been worked up for this new mass. States that she would like to pursue with the workup for this mass. Spoke to Dr. Jarrett in Radiology who stated that a mammogram should be ordered. Will speak to webmethods architect Radiologist on Monday to see if there are signs of malignancy, if so will proceed with biopsy. # Dementia - Continue home Donepezil HCl 10mg QD - Continue Memantine 10mg PO QD # History of HTN - Continue Diltiazem 240mg PO QD # History of HLD - Continue Atorvastatin 10mg QHS # History of Hypothyroidism - Continue Synthroid 75mcg QD # Hx of Lymphoma - Continue Mycophenalate 500mg PO QD #History of Overactive Bladder - Started Solifenacin 5mg PO QD (home med is Oxybutynin) #History of ANxiety and Depression - Continue Escitalopram 10mg PO QD - Continue Alprazolam 0.25mg PO TID # FEN - Fluids: None - Electrolytes: Monitor - Nutrition: Sodium controlled diet # Prophylaxis - DVT Prophylaxis: Heparin SQ - GI Prophylaxis: Not needed Visit type - Emergency Visit Emergency Visit: No - New Patient This patient is new to me today: No - Critical Care Critical Care patient: No - Discharge Referral Referred to [facility] No
--- NOTE | 2017-01-14 11:41 | PN ---
Progress Note, Physician History of Present Illness: pulmonary alert,feeling better,-resp distress - Current Medication List Current Medications: Active Medications Acetaminophen (Tylenol -) 650 mg PO Q4H PRN PRN Reason: FEVER OR PAIN Aclidinium [place] (Tudorza -) 1 puff IH DAILY [facility] Last Admin: 01/13/17 09:17 Dose: 1 puff Albuterol Sulfate (Ventolin 0.083% Nebulizer Soln -) 1 amp NEB Q4H PRN PRN Reason: SHORT OF BREATH/WHEEZING Alprazolam (Xanax -) 0.25 mg PO TID [facility] Last Admin: 01/14/17 06:24 Dose: 0.25 mg Aspirin (Asa -) 81 mg PO DAILY [facility] Last Admin: 01/14/17 10:20 Dose: 81 mg Atorvastatin Calcium (Lipitor -) 10 mg PO HS [facility] Last Admin: 01/13/17 21:56 Dose: 10 mg Azithromycin (Zithromax 500mg Ivpb (Pre-Docked)) 500 mg IVPB DAILY [facility] Last Admin: 01/14/17 10:21 Dose: 500 mg Budesonide/Formoterol Fumarate (Symbicort 80/4.5mcg -) 2 puff IH BID [facility] Last Admin: 01/14/17 10:21 Dose: 2 puff Calcium Carbonate/Cholecalciferol (Os-Juan 500+D -) 1 tab PO BID [facility] Last Admin: 01/14/17 10:20 Dose: 1 tab Diltiazem HCl (Cardizem Cd -) 240 mg PO DAILY [facility] Last Admin: 01/14/17 10:20 Dose: 240 mg Docusate Sodium (Colace -) 200 mg PO DAILY [facility] Last Admin: 01/14/17 10:20 Dose: 200 mg Donepezil HCl (Aricept -) 10 mg PO DAILY [facility] Last Admin: 01/14/17 10:20 Dose: 10 mg Escitalopram Oxalate (Lexapro -) 10 mg PO DAILY [facility] Last Admin: 01/14/17 10:19 Dose: 10 mg Gabapentin (Neurontin -) 300 mg PO BID [facility] Last Admin: 01/14/17 10:20 Dose: 300 mg Heparin Sodium (Porcine) (Heparin -) 5,000 unit SQ BID [facility] Last Admin: 01/14/17 10:22 Dose: 5,000 unit Piperacillin Sod/Tazobactam Sod (Zosyn 3.375gm Ivpb (Pre-Docked)) 50 mls @ 100 mls/hr IVPB Q8H-IV [facility] PRN Reason: Protocol Last Admin: 01/14/17 10:21 Dose: 100 mls/hr Levothyroxine Sodium (Synthroid -) 75 mcg PO DAILY@0700 [facility] Last Admin: 01/14/17 06:24 Dose: 75 mcg Memantine (Namenda -) 10 mg PO DAILY [facility] Last Admin: 01/14/17 10:20 Dose: 10 mg Mycophenolate Mofetil (Cellcept -) 500 mg PO DAILY [facility] Last Admin: 01/14/17 10:21 Dose: 500 mg Non-Formulary Medication (Olopatadine Hcl [Pataday]) 2.5 ml OP DAILY [facility] Prednisone (Deltasone -) 40 mg PO BID [facility] Last Admin: 01/14/17 10:20 Dose: 40 mg Senna (Senna -) 2 tab PO HS [facility] Last Admin: 01/13/17 21:55 Dose: 2 tab Solifenacin (Vesicare -) 5 mg PO DAILY [facility] Last Admin: 01/14/17 10:21 Dose: 5 mg - Objective Vital Signs: Vital Signs Temperature 98.2 F 01/14/17 07:45 Pulse Rate 83 01/14/17 11:01 Respiratory Rate 18 01/14/17 07:45 Blood Pressure 135/80 01/14/17 07:45 O2 Sat by Pulse Oximetry (%) 98 01/14/17 11:01 Constitutional: Yes: Well Nourished, Calm Eyes: Yes: WNL HENT: Yes: WNL Neck: Yes: WNL Cardiovascular: Yes: Regular Rate and Rhythm, S1, S2 Respiratory: Yes: Rales (crackles r base) Gastrointestinal: Yes: Normal Bowel Sounds, Soft Extremities: Yes: WNL Edema: No Labs: CBC, BMP 01/14/17 06:00 01/13/17 06:38 INR, PTT INR 0.93 (0.82-1.09) 01/12/17 11:24 Problem List - Problems (1) Acute respiratory distress Code(s): R06.00 - DYSPNEA, UNSPECIFIED (2) Anxiety Code(s): F41.9 - ANXIETY DISORDER, UNSPECIFIED (3) COPD (chronic obstructive pulmonary disease) Code(s): J44.9 - CHRONIC OBSTRUCTIVE PULMONARY DISEASE, UNSPECIFIED Qualifiers : COPD type: unspecified COPD Qualified Code(s): J44.9 - Chronic obstructive pulmonary disease, unspecified (4) Right lower lobe pneumonia Code(s): J18.1 - LOBAR PNEUMONIA, UNSPECIFIED ORGANISM Qualifiers: Pneumonia type: due to unspecified organism Qualified Code(s): J18.1 - Lobar pneumonia, unspecified organism (5) COPD with acute exacerbation Code(s): J44.1 - CHRONIC OBSTRUCTIVE PULMONARY DISEASE W (ACUTE) EXACERBATION (6) Coughing Code(s): R05 - COUGH (7) Dementia Code(s): F03.90 - UNSPECIFIED DEMENTIA WITHOUT BEHAVIORAL DISTURBANCE Qualifiers: Dementia type: Alzheimer's disease Alzheimer's disease onset: unspecified onset Dementia behavioral disturbance: without behavioral disturbance Qualified Code(s): G30.9 - Alzheimer's disease, unspecified; F02.80 - Dementia in other diseases classified elsewhere without behavioral disturbance (8) Hypercholesteremia Code(s): E78.0 - PURE HYPERCHOLESTEROLEMIA * DO NOT USE * (9) Hypertension Code(s): I10 - ESSENTIAL (PRIMARY) HYPERTENSION (10) Shortness of breath Code(s): R06.02 - SHORTNESS OF BREATH (11) Acute on chronic respiratory failure with hypoxemia Code(s): J96.21 - ACUTE AND CHRONIC RESPIRATORY FAILURE WITH HYPOXIA Assessment/Plan IMP ACUTE ON CHRONIC HYPOXEMIC RESPIRATORY FAILURE CLINICALLY IMPROVING COPD PNEUMONIA HTN DEMENTIA GERD LYMPHOMA R BREAST MASS PLAN IV ANTIBIOTICS PER ID INHALED BRONCHODILATORS PREDNISONE TAPER DR HORN Problem List - Problems (1) Acute respiratory distress Code(s): R06.00 - DYSPNEA, UNSPECIFIED (2) Anxiety Code(s): F41.9 - ANXIETY DISORDER, UNSPECIFIED (3) COPD (chronic obstructive pulmonary disease) Code(s): J44.9 - CHRONIC OBSTRUCTIVE PULMONARY DISEASE, UNSPECIFIED Qualifiers : COPD type: unspecified COPD Qualified Code(s): J44.9 - Chronic obstructive pulmonary disease, unspecified (4) Right lower lobe pneumonia Code(s): J18.1 - LOBAR PNEUMONIA, UNSPECIFIED ORGANISM Qualifiers: Pneumonia type: due to unspecified organism Qualified Code(s): J18.1 - Lobar pneumonia, unspecified organism (5) COPD with acute exacerbation Code(s): J44.1 - CHRONIC OBSTRUCTIVE PULMONARY DISEASE W (ACUTE) EXACERBATION (6) Coughing Code(s): R05 - COUGH (7) Dementia Code(s): F03.90 - UNSPECIFIED DEMENTIA WITHOUT BEHAVIORAL DISTURBANCE Qualifiers: Dementia type: Alzheimer's disease Alzheimer's disease onset: unspecified onset Dementia behavioral disturbance: without behavioral disturbance Qualified Code(s): G30.9 - Alzheimer's disease, unspecified; F02.80 - Dementia in other diseases classified elsewhere without behavioral disturbance (8) Hypercholesteremia Code(s): E78.0 - PURE HYPERCHOLESTEROLEMIA * DO NOT USE * (9) Hypertension Code(s): I10 - ESSENTIAL (PRIMARY) HYPERTENSION (10) Shortness of breath Code(s): R06.02 - SHORTNESS OF BREATH (11) Acute on chronic respiratory failure with hypoxemia Code(s): J96.21 - ACUTE AND CHRONIC RESPIRATORY FAILURE WITH HYPOXIA
--- NOTE | 2017-01-14 11:55 | PN ---
Teaching Attending Note Name of Resident: Harini Hernadez ATTENDING PHYSICIAN STATEMENT I saw and evaluated the patient. I reviewed the resident's note and discussed the case with the resident. I agree with the resident's findings and plan as documented. SUBJECTIVE: no fever or chills. has no pain. denies any SOB , or CP . OBJECTIVE: NAD , awake , alert , knows she is in [place], does not know her age CV: RRR. Lungs:decreased breath sounds at bases , but no wheezes heard today ABd: soft, NT, ND, NL BS Ext : no edema No lymphadenopathy in neck, axillae , or groins Breast: R breast mass 2x2 cm at 7O'clock. skin is mobile over it , and mass is not mobile on chest wall. no LAP in axillary area . L breast with no masses , and no axillary lymph nodes. L nipple with hyper-keratotic changes . ASSESSMENT AND PLAN: 86 y/o lady with h/o COPD , Lymphoma, dementia , HTN , HLP and other medical problems who presented with SOB. She was found tohave acute COPD exacerbation and PNA 1- Acute hypoxic resp failure, due to acute COPD exacerbation and HCAP ( Vs aspiration ). much improved RUL posterior infiltrate o n CT scan . - COnt prednisone 40 BID ( day 2 ). - cont symbicort , and Tudorza - cont ALb Nebs - Will d/w D. Mehdi on M Onday her diagnosis of Churg Fanny - cont ABx to cover HCAP and to cover aspiration PNA - speech eval noted - follow blood cx - cont cellcept ( ? for Churg Fanny , vs lymphoma ) 2- HTN : cont cardizem 3- Hypothyroidism: cont synthroid 4- R breast mass. d/w family, no prior hx or diagnosis of a breast mass. last Mammo was neg . family is willing to go further with diagnosis - order mammogram, then further dx with Bx HLOC
[2017-01-14] MEDS: TIOTROPIUM BROMIDE 18 MCG/INH (DEVICE W/ 5 CAPSULES) IH SCH (13:21)
[2017-01-14 16:46] LABS: URINE APPEARANCE CLEAR; URINE BILIRUBIN NEGATIVE (NEGATIVE); URINE BLOOD NEGATIVE (NEGATIVE); URINE COLOR LTYELLOW; URINE GLUCOSE (UA) NEGATIVE (NEGATIVE); URINE KETONE NEGATIVE (NEGATIVE); URINE LEUK ESTERASE NEGATIVE (NEGATIVE); URINE NITRITE NEGATIVE (NEGATIVE); URINE PROTEIN NEGATIVE (NEGATIVE); URINE UROBILINOGEN NEGATIVE mg/dL (0.2-1.0)
[2017-01-14] MEDS: ATORVASTATIN CA 10 MG TABLET (FP) PO SCH (21:21)
[2017-01-14] MEDS: SENNOSIDES 8.6MG TABLET (FP) PO SCH (21:21)
[2017-01-15] MEDS: PIPERACILLIN/TAZOB 3.375 GM 50 ML IVPB SCH ×3 (01:15→17:09)
[2017-01-15] MEDS: ALPRAZolam 0.25 MG TABLET PO SCH ×3 (06:17→21:28)
[2017-01-15] MEDS: LEVOTHYROXINE NA 75 MCG TABLET (FP) PO SCH (06:17)
[2017-01-15 07:59] LABS: MCH 31.7 pg (25.7-33.7); MCHC 33.2 g/dl (32.0-36.0); MEAN CELL VOLUME 95.5 fl (80-96); MEAN PLT VOLUME 8.5 fl (7.5-11.1); PLATELET COUNT 203 K/MM3 (134-434); RDW 14.5 % (11.6-15.6); WHITE BLOOD COUNT 13.6 K/mm3 (4.0-10.0)
[2017-01-15] MEDS: AZITHROMYCIN IVPB 500 MG/250 ML D5W PRE-DOCKED IVPB SCH (10:19)
[2017-01-15] MEDS: DOCUSATE SODIUM 100 MG CAPSULE (FP) PO SCH (10:20)
[2017-01-15] MEDS: ASPIRIN 81 MG CHEWABLE TABLETS PO SCH (10:21)
[2017-01-15] MEDS: MYCOPHENOLATE MOFETIL 500 MG TABLET PO SCH (10:21)
[2017-01-15] MEDS: SOLIFENACIN SUCCINATE 5 MG TAB (FP) PO SCH (10:21)
[2017-01-15] MEDS: DONEPEZIL HCL 10 MG TABLET (FP) PO SCH (10:22)
[2017-01-15] MEDS: GABAPENTIN 300 MG CAPSULE (FP) PO SCH ×2 (10:22→21:28)
[2017-01-15] MEDS: MEMANTINE HCL 10 MG TABLET (FP) PO SCH (10:22)
[2017-01-15] MEDS: CALCIUM 500MG/VIT-D 200 UNITS COMBO TABLET (FP) PO SCH ×2 (10:23→21:28)
[2017-01-15] MEDS: HEPARIN NA (PORCINE) 5,000 UNITS/ML 1ML VIAL SQ SCH ×2 (10:23→21:28)
[2017-01-15] MEDS: ESCITALOPRAM OXALATE 10 MG TABLET (FP) PO SCH (10:24)
[2017-01-15] MEDS: BUDESONIDE/FORMETEROL FUMARATE 80/4.5 mcg INHALER IH SCH ×2 (10:29→21:36)
[2017-01-15] MEDS: TIOTROPIUM BROMIDE 18 MCG/INH (DEVICE W/ 5 CAPSULES) IH SCH (10:29)
[2017-01-15] MEDS ORDERED: PT OWN MED DRAWER 7, Y5N ONE (10:43)
--- NOTE | 2017-01-15 11:16 | PN ---
Progress Note, SPOKE MAKER - Note Progress Note: Pt seen at bedside for follow up to dysphagia eval with recommendations for regular solids (Na controlled) with thin liquids. Pt is verbal A&Ox2 with some confusion. Pt reports that she is eating fine. Chart review reports fair consumption with an average of 50 to 75% of meals. shanker out reports no s/s of aspiration at during meals at this time. SPOKE MAKER will continue to monitor.
--- NOTE | 2017-01-15 11:32 | PN ---
Progress Note (short form) - Note Progress Note: feels well no complalints recent admission 12/24 to 12/27 for RLL pneumonia- treated with ceftriaxone and zithromax, d/anurag on zithromax Vital Signs Period Temp Pulse Resp BP Sys/[place] Pulse Ox Last 24 Hr 97.5 F-98.7 F 76-89 16-18 128-137/66-94 95 cor-rrr lungs decreased bs at bases abd soft,nt ext no edema CBC, BMP 01/15/17 06:00 01/13/17 06:38 Microbiology 01/14/17 15:05 Urine For Antigen Detection Legionella Antigen - Final 01/14/17 15:05 Urine For Antigen Detection Streptococcus pneumoniae Antigen (M - Final 01/12/17 11:55 Blood - Peripheral Venous Blood Culture - Preliminary NO GROWTH OBTAINED AFTER 48 HOURS, INCUBATION TO CONTINUE FOR 3 DAYS. 01/12/17 11:24 Blood - Peripheral Venous Blood Culture - Preliminary NO GROWTH OBTAINED AFTER 48 HOURS, INCUBATION TO CONTINUE FOR 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 levaquin allergy hx lobectomy dementia continue zosyn/zithromax daY #4
--- NOTE | 2017-01-15 11:34 | PN ---
Progress Note, Physician History of Present Illness: PULMONARY ALERT,NAD,-DYSPNEA - Current Medication List Current Medications: Active Medications Acetaminophen (Tylenol -) 650 mg PO Q4H PRN PRN Reason: FEVER OR PAIN Albuterol Sulfate (Ventolin 0.083% Nebulizer Soln -) 1 amp NEB Q4H PRN PRN Reason: SHORT OF BREATH/WHEEZING Alprazolam (Xanax -) 0.25 mg PO TID [facility] Last Admin: 01/15/17 06:17 Dose: 0.25 mg Aspirin (Asa -) 81 mg PO DAILY [facility] Last Admin: 01/14/17 10:20 Dose: 81 mg Atorvastatin Calcium (Lipitor -) 10 mg PO HS [facility] Last Admin: 01/14/17 21:21 Dose: 10 mg Azithromycin (Zithromax 500mg Ivpb (Pre-Docked)) 500 mg IVPB DAILY [facility] Last Admin: 01/14/17 10:21 Dose: 500 mg Budesonide/Formoterol Fumarate (Symbicort 80/4.5mcg -) 2 puff IH BID [facility] Last Admin: 01/14/17 21:21 Dose: 2 puff Calcium Carbonate/Cholecalciferol (Os-Juan 500+D -) 1 tab PO BID [facility] Last Admin: 01/14/17 21:21 Dose: 1 tab Diltiazem HCl (Cardizem Cd -) 240 mg PO DAILY [facility] Last Admin: 01/14/17 10:20 Dose: 240 mg Docusate Sodium (Colace -) 200 mg PO DAILY [facility] Last Admin: 01/14/17 10:20 Dose: 200 mg Donepezil HCl (Aricept -) 10 mg PO DAILY [facility] Last Admin: 01/14/17 10:20 Dose: 10 mg Escitalopram Oxalate (Lexapro -) 10 mg PO DAILY [facility] Last Admin: 01/14/17 10:19 Dose: 10 mg Gabapentin (Neurontin -) 300 mg PO BID [facility] Last Admin: 01/14/17 21:21 Dose: 300 mg Heparin Sodium (Porcine) (Heparin -) 5,000 unit SQ BID [facility] Last Admin: 01/14/17 21:21 Dose: 5,000 unit Piperacillin Sod/Tazobactam Sod (Zosyn 3.375gm Ivpb (Pre-Docked)) 50 mls @ 100 mls/hr IVPB Q8H-IV [facility] PRN Reason: Protocol Last Admin: 01/15/17 01:15 Dose: 100 mls/hr Levothyroxine Sodium (Synthroid -) 75 mcg PO DAILY@0700 [facility] Last Admin: 01/15/17 06:17 Dose: 75 mcg Memantine (Namenda -) 10 mg PO DAILY [facility] Last Admin: 01/14/17 10:20 Dose: 10 mg Mycophenolate Mofetil (Cellcept -) 500 mg PO DAILY [facility] Last Admin: 01/14/17 10:21 Dose: 500 mg Non-Formulary Medication (Olopatadine Hcl [Pataday]) 2.5 ml OP DAILY [facility] Prednisone (Deltasone -) 40 mg PO BID [facility] Last Admin: 01/14/17 21:21 Dose: 40 mg Senna (Senna -) 2 tab PO HS [facility] Last Admin: 01/14/17 21:21 Dose: 2 tab Solifenacin (Vesicare -) 5 mg PO DAILY [facility] Last Admin: 01/14/17 10:21 Dose: 5 mg Tiotropium [place] (Spiriva -) 1 puff IH DAILY [facility] Last Admin: 01/14/17 13:21 Dose: 1 puff - Objective Vital Signs: Vital Signs Temperature 97.5 F L 01/15/17 06:00 Pulse Rate 76 01/15/17 06:00 Respiratory Rate 18 01/15/17 06:00 Blood Pressure 135/74 01/15/17 06:00 O2 Sat by Pulse Oximetry (%) 95 01/14/17 20:44 Constitutional: Yes: Well Nourished, Calm Eyes: Yes: WNL HENT: Yes: WNL Neck: Yes: WNL Cardiovascular: Yes: Regular Rate and Rhythm, S1, S2 Respiratory: Yes: Rales (FEW BASILAR CRACKLES) Gastrointestinal: Yes: Normal Bowel Sounds, Soft Extremities: Yes: WNL Edema: No Labs: CBC, BMP 01/15/17 06:00 01/13/17 06:38 INR, PTT Problem List - Problems (1) Acute respiratory distress Code(s): R06.00 - DYSPNEA, UNSPECIFIED (2) Anxiety Code(s): F41.9 - ANXIETY DISORDER, UNSPECIFIED (3) COPD (chronic obstructive pulmonary disease) Code(s): J44.9 - CHRONIC OBSTRUCTIVE PULMONARY DISEASE, UNSPECIFIED Qualifiers : Qualified Code(s): J44.9 - Chronic obstructive pulmonary disease, unspecified (4) Right lower lobe pneumonia Code(s): J18.1 - LOBAR PNEUMONIA, UNSPECIFIED ORGANISM Qualifiers: Qualified Code(s): J18.1 - Lobar pneumonia, unspecified organism (5) COPD with acute exacerbation Code(s): J44.1 - CHRONIC OBSTRUCTIVE PULMONARY DISEASE W (ACUTE) EXACERBATION (6) Coughing Code(s): R05 - COUGH (7) Dementia Code(s): F03.90 - UNSPECIFIED DEMENTIA WITHOUT BEHAVIORAL DISTURBANCE Qualifiers: Qualified Code(s): G30.9 - Alzheimer's disease, unspecified; F02.80 - Dementia in other diseases classified elsewhere without behavioral disturbance (8) Hypercholesteremia Code(s): E78.0 - PURE HYPERCHOLESTEROLEMIA * DO NOT USE * (9) Hypertension Code(s): I10 - ESSENTIAL (PRIMARY) HYPERTENSION (10) Shortness of breath Code(s): R06.02 - SHORTNESS OF BREATH (11) Acute on chronic respiratory failure with hypoxemia Code(s): J96.21 - ACUTE AND CHRONIC RESPIRATORY FAILURE WITH HYPOXIA Assessment/Plan IMP ACUTE ON CHRONIC HYPOXEMIC RESPIRATORY FAILURE CLINICALLY IMPROVING COPD PNEUMONIA HTN DEMENTIA GERD LYMPHOMA R BREAST MASS PLAN IV ANTIBIOTICS PER ID INHALED BRONCHODILATORS PREDNISONE TAPER DR HORN Problem List - Problems (1) Acute respiratory distress Code(s): R06.00 - DYSPNEA, UNSPECIFIED (2) Anxiety Code(s): F41.9 - ANXIETY DISORDER, UNSPECIFIED (3) COPD (chronic obstructive pulmonary disease) Code(s): J44.9 - CHRONIC OBSTRUCTIVE PULMONARY DISEASE, UNSPECIFIED Qualifiers : COPD type: unspecified COPD Qualified Code(s): J44.9 - Chronic obstructive pulmonary disease, unspecified (4) Right lower lobe pneumonia Code(s): J18.1 - LOBAR PNEUMONIA, UNSPECIFIED ORGANISM Qualifiers: Pneumonia type: due to unspecified organism Qualified Code(s): J18.1 - Lobar pneumonia, unspecified organism (5) COPD with acute exacerbation Code(s): J44.1 - CHRONIC OBSTRUCTIVE PULMONARY DISEASE W (ACUTE) EXACERBATION (6) Coughing Code(s): R05 - COUGH (7) Dementia Code(s): F03.90 - UNSPECIFIED DEMENTIA WITHOUT BEHAVIORAL DISTURBANCE Qualifiers: Dementia type: Alzheimer's disease Alzheimer's disease onset: unspecified onset Dementia behavioral disturbance: without behavioral disturbance Qualified Code(s): G30.9 - Alzheimer's disease, unspecified; F02.80 - Dementia in other diseases classified elsewhere without behavioral disturbance (8) Hypercholesteremia Code(s): E78.0 - PURE HYPERCHOLESTEROLEMIA * DO NOT USE * (9) Hypertension Code(s): I10 - ESSENTIAL (PRIMARY) HYPERTENSION (10) Shortness of breath Code(s): R06.02 - SHORTNESS OF BREATH (11) Acute on chronic respiratory failure with hypoxemia Code(s): J96.21 - ACUTE AND CHRONIC RESPIRATORY FAILURE WITH HYPOXIA
--- NOTE | 2017-01-15 13:26 | PN ---
Progress Note (short form) - Note Progress Note: Subjective: no pain , no fever or chills, no SOB Objective: Vital Signs: Last Vital Signs Temp Pulse Resp BP Pulse Ox 97.5 F L 76 18 135/74 95 01/15/17 06:00 01/15/17 06:00 01/15/17 06:00 01/15/17 06:00 01/14/17 20:44 Laboratory Results - last 24 hr 01/14/17 01/14/17 01/15/17 06:00 15:00 06:00 WBC 13.6 H RBC 3.64 Hgb 11.5 Hct 34.8 MCV 95.5 MCH 31.7 MCHC 33.2 RDW 14.5 Plt Count 203 MPV 8.5 Urine Color Ltyellow Urine Appearance Clear Urine pH 5.0 Ur Specific [place] 1.020 Urine Protein Negative Urine Glucose (UA) Negative Urine Ketones Negative Urine Blood Negative Urine Nitrite Negative Urine Bilirubin Negative Urine Urobilinogen Negative Ur Leukocyte Esterase Negative IgE 94 Microbiology 01/12/17 11:55 Blood Culture - Preliminary Blood - Peripheral Venous NO GROWTH OBTAINED AFTER 72 HOURS, INCUBATION TO CONTINUE FOR 2 DAYS. 01/12/17 11:24 Blood Culture - Preliminary Blood - Peripheral Venous NO GROWTH OBTAINED AFTER 72 HOURS, INCUBATION TO CONTINUE FOR 2 DAYS. 01/14/17 15:05 Legionella Antigen - Final Urine For Antigen Detection Streptococcus pneumoniae Antigen (M - Final Physical Exam: NAD , awake , alert , knows she is in [place], does not know her age CV: RRR. Lungs: decreased breath sounds at bases, but no wheezes heard today ABd: soft, NT, ND, NL BS Ext : no edema ASSESSMENT AND PLAN: 86 y/o lady with h/o COPD , Lymphoma, dementia , HTN , HLP and other medical problems who presented with SOB. She was found tohave acute COPD exacerbation and PNA 1- Acute hypoxic resp failure, due to acute COPD exacerbation and HCAP ( Vs aspiration ). much improved - Cont prednisone taper . day 1 on 30 BID - cont symbicort , and Tudorza - cont ALb Nebs - Will d/w D. Mehdi on Monday her diagnosis of Churg Fanny or other types of vasculitis - blood cx, neg to date - cont cellcept ( ? for vascultitis , vs lymphoma ) 2- HTN : cont cardizem 3- Hypothyroidism: cont synthroid 4- R breast mass. family interested in diagnosis - Mammo tomorrow HLOC rn case manager swetha. Ongoing PT eval. Visit type - Emergency Visit Emergency Visit: Yes ED Registration Date: 01/12/17 Care time: The patient presented to the Emergency Department on the above date and was hospitalized for further evaluation of their emergent condition. - New Patient This patient is new to me today: No - Critical Care Critical Care patient: No
[2017-01-15] MEDS: ALBUTEROL SO4 0.083% IH SOL 2.5 MG/3 ML VIAL.NEB. NEB PRN (21:11)
[2017-01-15] MEDS: SENNOSIDES 8.6MG TABLET (FP) PO SCH (21:28)
[2017-01-15] MEDS: predniSONE 20 MG TABLET (UD) PO SCH (21:28)
[2017-01-15] MEDS: ATORVASTATIN CA 10 MG TABLET (FP) PO SCH (21:28)
--- NOTE | 2017-01-15 22:45 | CONS ---
INFECTIOUS DISEASE CONSULTATION DATE OF CONSULTATION: DATE OF DICTATION: 01/13/2017 The patient is an 86-year-old female with a history of COPD and recent pneumonia, evaluated for recurrent pneumonia and acute exacerbation COPD. The patient was recently hospitalized at [facility] from December 24 through December 27, 2016. She was treated for right lower lobe pneumonia with Zithromax and ceftriaxone as well as bronchodilators and steroids. At her assisted living facility, she became increasingly short of breath. EMS was called. She was noted to have an O2 saturation 93%. She was evaluated in the emergency room at [facility] where chest x-ray showed a right lower lobe infiltrate, her white blood cell count was elevated at 22,000, and she was noted to have a low-grade fever. She was empirically treated with Zithromax, clindamycin, and cefepime. She is awake, mildly confused. She offers no focal complaints. She denies any chest pain, shortness of breath, or cough. No known ill contacts. She has a history of heavy tobacco use; however, stopped. PAST MEDICAL HISTORY: Positive for COPD, bronchial asthma, dementia, gastroesophageal reflux, hypertension, hyperlipidemia, hypothyroidism, chronic anemia. PAST SURGICAL HISTORY: Status post right upper lobe lung surgery. ALLERGIES: LEVAQUIN. She is unaware of the nature of the allergy. MEDICATIONS: Include aspirin, Aricept, Cardizem, CellCept, Colace, Deltasone, Lipitor, cefepime, Neurontin, Synthroid. SOCIAL HISTORY: Former smoker. She stopped years ago and formerly worked for the [employer]. SYSTEMS REVIEW: Neurologic: No loss of consciousness, seizure activity, focal weakness. Cardiac: Negative chest pain or palpitations. Respiratory: As per HPI. Gastrointestinal: Negative vomiting. No diarrhea. Genitourinary: Negative for urinary tract infection. LABORATORY DATA: White count 22.0, neutrophils 84, lymphocytes 4, monocytes 1; hematocrit 38.6; platelet count 191. BUN 22, creatinine 1.0. Blood culture is pending as is urinalysis and urine culture and sputum culture. CAT scan of the chest shows right lower lobe consolidated lung, left pleural effusion, left apical pleural thickening. PHYSICAL EXAMINATION: General: She is awake, slightly confused, in no acute respiratory distress. Vital Signs: Temperature 98.1, T-max 99.7; blood pressure 130/67; pulse 88, regular; respirations 20 per minute. HEENT: Sclerae anicteric. Heart: Sounds S1, S2. Lungs: Crepitations at the bases, left greater than right. Scattered rhonchi. Abdomen: Soft. No tenderness elicited. No mass, rebound, or rigidity. Extremities: Negative for edema. IMPRESSION: 1. Acute exacerbation of chronic obstructive pulmonary disease. 2. Recurrent pneumonia, possible healthcare acquired. 3. History of lung resection. 4. History of lymphoma on immunosuppressive therapy. Await culture results. Empiric antibiotic coverage for suspected healthcare-acquired pneumonia with Zithromax and Zosyn. Continue inhaled bronchodilators and intravenous corticosteroids. Will follow. Thank you for the kind referral. OTONIEL EMERY M.D. [id number]
[2017-01-16] MEDS: PIPERACILLIN/TAZOB 3.375 GM 50 ML IVPB SCH ×4 (01:50→18:58)
[2017-01-16] MEDS: ALPRAZolam 0.25 MG TABLET PO SCH ×3 (05:57→22:14)
[2017-01-16] MEDS: LEVOTHYROXINE NA 75 MCG TABLET (FP) PO SCH (05:59)
[2017-01-16 08:08] LABS: BASOPHIL 0.3 % (0-2.0); MCH 32.5 pg (25.7-33.7); MCHC 34.1 g/dl (32.0-36.0); MEAN CELL VOLUME 95.4 fl (80-96); MEAN PLT VOLUME 8.6 fl (7.5-11.1); NEUTROPHILS 85.4 % (42.8-82.8); PLATELET COUNT 208 K/MM3 (134-434); RDW 14.4 % (11.6-15.6); WHITE BLOOD COUNT 10.4 K/mm3 (4.0-10.0)
--- NOTE | 2017-01-16 09:26 | PN ---
Progress Note, Physician History of Present Illness: OOB in chair Mildly confused No c/o chest pain/ dyspnea Occasional dry cough No fever/ chills WBC improved - Current Medication List Current Medications: Active Medications Acetaminophen (Tylenol -) 650 mg PO Q4H PRN PRN Reason: FEVER OR PAIN Last Admin: 01/15/17 23:02 Dose: 650 mg Albuterol Sulfate (Ventolin 0.083% Nebulizer Soln -) 1 amp NEB Q4H PRN PRN Reason: SHORT OF BREATH/WHEEZING Last Admin: 01/15/17 21:11 Dose: 1 amp Alprazolam (Xanax -) 0.25 mg PO TID [facility] Last Admin: 01/16/17 05:57 Dose: 0.25 mg Aspirin (Asa -) 81 mg PO DAILY [facility] Last Admin: 01/15/17 10:21 Dose: 81 mg Atorvastatin Calcium (Lipitor -) 10 mg PO HS [facility] Last Admin: 01/15/17 21:28 Dose: 10 mg Azithromycin (Zithromax 500mg Ivpb (Pre-Docked)) 500 mg IVPB DAILY [facility] Last Admin: 01/15/17 10:19 Dose: 500 mg Budesonide/Formoterol Fumarate (Symbicort 80/4.5mcg -) 2 puff IH BID [facility] Last Admin: 01/15/17 21:36 Dose: 2 puff Calcium Carbonate/Cholecalciferol (Os-Juan 500+D -) 1 tab PO BID [facility] Last Admin: 01/15/17 21:28 Dose: 1 tab Diltiazem HCl (Cardizem Cd -) 240 mg PO DAILY [facility] Last Admin: 01/15/17 10:21 Dose: 240 mg Docusate Sodium (Colace -) 200 mg PO DAILY [facility] Last Admin: 01/15/17 10:20 Dose: 200 mg Donepezil HCl (Aricept -) 10 mg PO DAILY [facility] Last Admin: 01/15/17 10:22 Dose: 10 mg Escitalopram Oxalate (Lexapro -) 10 mg PO DAILY [facility] Last Admin: 01/15/17 10:24 Dose: 10 mg Gabapentin (Neurontin -) 300 mg PO BID [facility] Last Admin: 01/15/17 21:28 Dose: 300 mg Heparin Sodium (Porcine) (Heparin -) 5,000 unit SQ BID [facility] Last Admin: 01/15/17 21:28 Dose: 5,000 unit Piperacillin Sod/Tazobactam Sod (Zosyn 3.375gm Ivpb (Pre-Docked)) 50 mls @ 100 mls/hr IVPB Q8H-IV [facility] PRN Reason: Protocol Last Admin: 01/16/17 01:50 Dose: 100 mls/hr Levothyroxine Sodium (Synthroid -) 75 mcg PO DAILY@0700 [facility] Last Admin: 01/16/17 05:59 Dose: 75 mcg Memantine (Namenda -) 10 mg PO DAILY [facility] Last Admin: 01/15/17 10:22 Dose: 10 mg Mycophenolate Mofetil (Cellcept -) 500 mg PO DAILY [facility] Last Admin: 01/15/17 10:21 Dose: 500 mg Non-Formulary Medication (Olopatadine Hcl [Pataday]) 2.5 ml OP DAILY [facility] Prednisone (Deltasone -) 30 mg PO BID [facility] Last Admin: 01/15/17 21:28 Dose: 30 mg Senna (Senna -) 2 tab PO HS [facility] Last Admin: 01/15/17 21:28 Dose: 2 tab Solifenacin (Vesicare -) 5 mg PO DAILY [facility] Last Admin: 01/15/17 10:21 Dose: 5 mg Tiotropium [place] (Spiriva -) 1 puff IH DAILY [facility] Last Admin: 01/15/17 10:29 Dose: 1 puff - Objective Vital Signs: Vital Signs Temperature 98.4 F 01/16/17 07:50 Pulse Rate 74 01/16/17 07:50 Respiratory Rate 18 01/16/17 07:50 Blood Pressure 138/78 01/16/17 07:50 O2 Sat by Pulse Oximetry (%) 96 01/15/17 21:00 Constitutional: Yes: No Distress Eyes: Yes: Conjunctiva Clear Cardiovascular: Yes: Regular Rate and Rhythm, S1, S2 Respiratory: Yes: Other (rales R base, scatterred rhonchi) Gastrointestinal: Yes: Normal Bowel Sounds, Abdomen, Obese. No: Tenderness Edema: Yes Labs: CBC, BMP 01/16/17 06:40 01/13/17 06:38 INR, PTT INR 0.93 (0.82-1.09) 01/12/17 11:24 Assessment/Plan Pneumonia , possible HCAP Acute exacerbation COPD Hx vasculitis? On cellcept/prednisone R breast mass ( noted on CT chest) FQ allergy Mild OBS Continue empiric zithromax/ zosyn
--- NOTE | 2017-01-16 09:31 | PN ---
Teaching Attending Note Name of Resident: Harini Hernadez ATTENDING PHYSICIAN STATEMENT I saw and evaluated the patient. I reviewed the resident's note and discussed the case with the resident. I agree with the resident's findings and plan as documented. SUBJECTIVE:Patient in good spirits, jovial and cooperative, denies any discomfort OBJECTIVE: A&Ox3, NAD PERRLA, EOMI, MMM Lungs CTA, minimal basal crep CVS rrr, s1,s2 Abd: soft , nt, nd, BS+ Ext: 2+ pulses no edema, Nl ROM ASSESSMENT AND PLAN:Ac hypoxic respiratory respiratory failure secondary to COPD exacerbation secondary to HCAP. Taper prednsione Symbicort and tudorza and nebs Right breast mass- Mammogram today and continue care as out patient
[2017-01-16] MEDS ORDERED: PT OWN MED DRAWER 7, Y5N ONE ×2 (09:53→10:39)
[2017-01-16] MEDS: HEPARIN NA (PORCINE) 5,000 UNITS/ML 1ML VIAL SQ SCH ×2 (10:45→22:15)
[2017-01-16] MEDS: GABAPENTIN 300 MG CAPSULE (FP) PO SCH ×2 (10:46→22:14)
[2017-01-16] MEDS: SOLIFENACIN SUCCINATE 5 MG TAB (FP) PO SCH (10:46)
[2017-01-16] MEDS: ASPIRIN 81 MG CHEWABLE TABLETS PO SCH (10:46)
[2017-01-16] MEDS: DONEPEZIL HCL 10 MG TABLET (FP) PO SCH (10:47)
[2017-01-16] MEDS: MEMANTINE HCL 10 MG TABLET (FP) PO SCH (10:47)
[2017-01-16] MEDS: ESCITALOPRAM OXALATE 10 MG TABLET (FP) PO SCH (10:47)
[2017-01-16] MEDS: predniSONE 20 MG TABLET (UD) PO SCH ×2 (10:47→22:14)
[2017-01-16] MEDS: CALCIUM 500MG/VIT-D 200 UNITS COMBO TABLET (FP) PO SCH ×2 (10:47→22:15)
[2017-01-16] MEDS: DOCUSATE SODIUM 100 MG CAPSULE (FP) PO SCH (10:47)
[2017-01-16] MEDS: TIOTROPIUM BROMIDE 18 MCG/INH (DEVICE W/ 5 CAPSULES) IH SCH (10:48)
[2017-01-16] MEDS: AZITHROMYCIN IVPB 500 MG/250 ML D5W PRE-DOCKED IVPB SCH ×2 (10:49→13:50)
[2017-01-16] MEDS: ALBUTEROL SO4 0.083% IH SOL 2.5 MG/3 ML VIAL.NEB. NEB PRN (11:50)
--- NOTE | 2017-01-16 12:40 | PN ---
Progress Note (short form) - Note Progress Note: PULMONARY VSS/AFEBRILE OFFERS NO COMPLAINTS ANICTERIC DISTANT BUT CLEAR S1S2 BS+ NO EDEMA LABS/MEDS/NOTES/IMAGING REVIEWED IMP ACUTE ON CHRONIC HYPOXEMIC RESPIRATORY FAILURE CLINICALLY IMPROVING COPD PNEUMONIA HTN DEMENTIA GERD LYMPHOMA R BREAST MASS PLAN IV ANTIBIOTICS PER ID INHALED BRONCHODILATORS PREDNISONE TAPER F/U BREAST MASS R NANETTE SHIRLEY
[2017-01-16] MEDS: MYCOPHENOLATE MOFETIL 500 MG TABLET PO SCH (12:58)
[2017-01-16] MEDS: BUDESONIDE/FORMETEROL FUMARATE 80/4.5 mcg INHALER IH SCH ×2 (13:50→22:14)
--- NOTE | 2017-01-16 20:04 | DS ---
Physical Exam: SUBJECTIVE: Patient seen and examined this AM. No CP, no SOB, no fevers, no chills. OBJECTIVE: Vital Signs Period Temp Pulse Resp BP Sys/Bahena Pulse Ox Last 24 Hr 97.7 F-98.6 F 72-86 18-20 138-147/75-83 96-98 PHYSICAL EXAM GENERAL: Awake, alert, and oriented only to person and place, in no acute distress. Patient was lying in bed, not coughing. Throughout the exam the patient would intermittently stop the examiner and ask "Am I in the hospital?". EYES: Pupils equal, round and reactive to light, extraocular movements intact LUNGS: L sided rhonchi/rales on mid/basilar lung escobar. R sided rhonchi/rales on R base. No wheezes HEART: Regular rate and rhythm, normal S1 and S2, skipped beats at times, without murmur, rub or gallop. ABDOMEN: Soft, nontender, distended, normoactive bowel sounds MUSCULOSKELETAL: Normal range of motion at all joints. 5/5 muscle strength in all extremities BREAST: Breast exam performed on 01/13/17 showed no masses in L axillary area + Left breast. Small 2x2cm round, mobile mass present in region of L breast at 7pm position from the R nipple. UPPER EXTREMITIES: 2+ pulses, warm, well-perfused. No cyanosis. No clubbing. No peripheral edema. LOWER EXTREMITIES: 2+ pulses, warm, well-perfused. No calf tenderness. NEUROLOGICAL: Cranial nerves II-XII intact. Sensation was intact throughout face and body, muscular strength was 5/5 throughout. Reflexes 2+. Normal speech. Finger to nose test was intact. LABS Laboratory Results - last 24 hr 01/16/17 06:40 WBC 10.4 H RBC 3.63 Hgb 11.8 Hct 34.6 MCV 95.4 MCH 32.5 MCHC 34.1 RDW 14.4 Plt Count 208 MPV 8.6 Neutrophils % 85.4 H Lymphocytes % 9.5 D Monocytes % 4.8 D Eosinophils % 0.0 D Basophils % 0.3 HOSPITAL COURSE: Date of Admission:01/12/17 Date of Discharge: 01/16/17 Ms. Carter is an 86yo F with PMHx of COPD on home O2, asthma, dementia, lymphoma who presented from [facility] with worsening SOB, cough, and hypoxia found to be in Acute Hypoxic Resp failure due to acute COPD exacerbation and HCAP. # Acute Hypoxic Respiratory Failure - from COPD exac and HCAP - The patient presented with a COPD exacerbation and initial CXR and later CT chest showed consolidation in the Right Lower Lobe. The patient was on Prednisone 40mg BID, Albuterol nebulizers, Symbicort, and Spiriva which she will be discharged home on. She was placed on O2 4L, and used the incentive spirometer. To treat the HCAP, the patient was on Zosyn IV Q8 and Azithromycin 500mg IV for 4 days. The patient clinically improved throughout the hospitalization. We discharged the patient on Augmentin 875 mg BID x 1 week as per Infectious Disease Dr. Eubanks # R Breast Mass - The CT of the chest also showed a 2cm R breast mass. The mass was palpated and found to be round and mobile. From prior scans, it seems stable from 2016. The patient should be scheduled for an outpatient mammogram. All other home medications were continued. The patient was made aware of the hospital course and plan Minutes to complete discharge: 55 Discharge Summary Reason For Visit: PNEUMONIA Current Active Problems Right lower lobe pneumonia (Acute) Anxiety (Chronic) COPD (chronic obstructive pulmonary disease) (Chronic) Hypothyroid (Chronic) Condition: Improved - Instructions Diet, Activity, Other Instructions: You came into the hospital because you had Pneumonia which lead to a COPD exacerbation. We treated you with prednisone and IV antibiotics for 4 days. We will send you home with a prescription for oral antibiotics: Augmentin 875mg BID for 7 days. We discontinued some of your inhalers because they have similar mechanisms of action. We changed your medications as seen below: - Discontinued Tudorza - because you are on Spiriva - Discontinued Advair - because you are on Symbicort You will be on a Prednisone taper until January 23. On January 23 you can resume taking your home prednisone. We also found a mass in your right breast, and request you get a mammogram as soon as possible. Please follow with Dr. Mehta in 1 week If you have any serious symptoms please return to the Emergency Department. Referrals: Kurt Mehta MD [Staff Physician] - 1 Week Disposition: [facility] FACILITY - Home Medications Comprehensive Discharge Medication List: Ambulatory Orders Aa/Hydrolyzed Collagen, Whey [Lps 15-30 Liquid] 30 ml PO DAILY 01/12/17 Acetaminophen [Tylenol] 650 mg PO QID PRN 01/12/17 Albuterol Sulfate [Proventil HFA Inhaler -] 1 - 2 inh PO QID 01/12/17 Alprazolam [Xanax] 0.25 mg PO TID 01/12/17 Aspirin [Children's Aspirin] 81 mg PO DAILY 01/12/17 Atorvastatin Ca [Lipitor] 10 mg PO HS 01/12/17 Calcium Carbonate/Vitamin D3 [Oyster Shell 500-Vit D3 200 Tb] 1 each PO BID Diltiazem Cd [Cardizem Cd -] 240 mg PO DAILY 01/12/17 Docusate Sodium 200 mg PO DAILY 01/12/17 Donepezil HCl [Aricept] 10 mg PO DAILY 01/12/17 Escitalopram Oxalate [Lexapro -] 10 mg PO DAILY 01/12/17 Gabapentin 300 mg PO BID 01/12/17 Levothyroxine [Synthroid -] 75 mcg PO DAILY 01/12/17 Loratadine [Allergy] 10 mg PO DAILY 01/12/17 Memantine HCl [Namenda -] 10 mg PO DAILY 01/12/17 Multivitamin with Iron [Daily Mabel with Iron] 1 each PO DAILY 01/12/17 Mycophenolate Mofetil [Cellcept] 500 mg PO DAILY 01/12/17 Olopatadine HCl [Pataday] 2.5 ml OP DAILY 01/12/17 Oxybutynin Chloride [Oxybutynin Chloride ER] 5 mg PO DAILY 01/12/17 Polyethylene Glycol 3350 [Miralax 119 gm Btl -] 17 gm PO DAILY 01/12/17 Sennosides [Senna] 17.2 mg PO HS 01/12/17 Amox-Tr/K Cl [Augmentin - 875Mg Tablet] 1 tab PO BID #14 tablet 01/16/17 Budesonide/Formeterol Fumarate [SYMBICORT 80/4.5mcg -] 2 puff IH BID inhaler Prednisone 15 mg PO DAILY #20 tablet 01/16/17 Prednisone [Prednisone 50 MG TABLETS] See Taper PO DAILY #1 tablet 01/16/17 Tiotropium [place] [Spiriva] 1 inh IH DAILY #1 inh 01/16/17 This patient is new to me today: No Emergency Visit: No Critical Care patient: No - Discharge Referral Referred to [facility] Med P.C.: No
[2017-01-16] MEDS: SENNOSIDES 8.6MG TABLET (FP) PO SCH (22:14)
[2017-01-16] MEDS: ATORVASTATIN CA 10 MG TABLET (FP) PO SCH (22:14)
[2017-01-17] MEDS: ALBUTEROL SO4 0.083% IH SOL 2.5 MG/3 ML VIAL.NEB. NEB PRN (01:33)
[2017-01-17] MEDS: PIPERACILLIN/TAZOB 3.375 GM 50 ML IVPB SCH ×2 (02:49→10:59)
[2017-01-17] MEDS: LEVOTHYROXINE NA 75 MCG TABLET (FP) PO SCH (06:05)
[2017-01-17] MEDS: ALPRAZolam 0.25 MG TABLET PO SCH (06:05)
--- NOTE | 2017-01-17 07:34 | PN ---
Physical Exam: SUBJECTIVE: Patient seen and examined this AM. No complaints, no CP, no SOB, no fever, no chills. Patient was all set to go yesterday, but is still here this AM , will f/u. OBJECTIVE: Vital Signs Period Temp Pulse Resp BP Sys/Bahena Pulse Ox Last 24 Hr 97.8 F-98.6 F 72-86 18-18 128-162/66-80 97-98 GENERAL: Awake, alert, and oriented only to person and place, in no acute distress. Patient was lying in bed, not coughing. Throughout the exam the patient would intermittently stop the examiner and ask "Am I in the hospital?". EYES: Pupils equal, round and reactive to light, extraocular movements intact LUNGS: Lungs sound better this AM, midl crackles in lower lung escobar B/L, no wheezing. HEART: Regular rate and rhythm, normal S1 and S2, skipped beats at times, without murmur, rub or gallop. ABDOMEN: Soft, nontender, distended, normoactive bowel sounds MUSCULOSKELETAL: Normal range of motion at all joints. 5/5 muscle strength in all extremities BREAST: Breast exam performed on 01/13/17 showed no masses in L axillary area + Left breast. Small 2x2cm round, mobile mass present in region of L breast at 7pm position from the R nipple. UPPER EXTREMITIES: 2+ pulses, warm, well-perfused. No cyanosis. No clubbing. No peripheral edema. LOWER EXTREMITIES: 2+ pulses, warm, well-perfused. No calf tenderness. NEUROLOGICAL: Cranial nerves II-XII intact. Sensation was intact throughout face and body, muscular strength was 5/5 throughout. Reflexes 2+. Normal speech. Finger to nose test was intact. Laboratory Results - last 24 hr 01/16/17 06:40 WBC 10.4 H RBC 3.63 Hgb 11.8 Hct 34.6 MCV 95.4 MCH 32.5 MCHC 34.1 RDW 14.4 Plt Count 208 MPV 8.6 Neutrophils % 85.4 H Lymphocytes % 9.5 D Monocytes % 4.8 D Eosinophils % 0.0 D Basophils % 0.3 Active Medications Generic Name Dose Route Start Last Admin Trade Name Freq PRN Reason Stop Dose Admin Acetaminophen 650 mg 01/12/17 17:12 01/15/17 23:02 Tylenol - PO 650 mg Q4H PRN Administration FEVER OR PAIN Albuterol Sulfate 1 amp 01/12/17 17:12 01/17/17 01:33 Ventolin 0.083% Nebulizer Soln - NEB 1 amp Q4H PRN Administration SHORT OF BREATH/WHEEZING Alprazolam 0.25 mg 01/12/17 22:00 01/17/17 06:05 Xanax - PO 0.25 mg TID [facility] Administration Aspirin 81 mg 01/13/17 10:00 01/16/17 10:46 Asa - PO 81 mg DAILY [facility] Administration Atorvastatin Calcium 10 mg 01/12/17 22:00 01/16/17 22:14 Lipitor - PO 10 mg HS [facility] Administration Azithromycin 500 mg 01/13/17 10:00 01/16/17 13:50 Zithromax 500mg Ivpb (Pre-Docked) IVPB 500 mg DAILY [facility] Administration Budesonide/Formoterol Fumarate 2 puff 01/12/17 22:00 01/16/17 22:14 Symbicort 80/4.5mcg - IH 2 puff BID [facility] Administration Calcium Carbonate/Cholecalciferol 1 tab 01/12/17 22:00 01/16/17 22:15 Os-Juan 500+D - PO 1 tab BID [facility] Administration Diltiazem HCl 240 mg 01/13/17 10:00 01/16/17 10:47 Cardizem Cd - PO 240 mg DAILY [facility] Administration Docusate Sodium 200 mg 01/13/17 10:00 01/16/17 10:47 Colace - PO 200 mg DAILY [facility] Administration Donepezil HCl 10 mg 01/13/17 10:00 01/16/17 10:47 Aricept - PO 10 mg DAILY [facility] Administration Escitalopram Oxalate 10 mg 01/13/17 10:00 01/16/17 10:47 Lexapro - PO 10 mg DAILY [facility] Administration Gabapentin 300 mg 01/12/17 22:00 01/16/17 22:14 Neurontin - PO 300 mg BID [facility] Administration Heparin Sodium (Porcine) 5,000 unit 01/12/17 22:00 01/16/17 22:15 Heparin - SQ 5,000 unit BID [facility] Administration Piperacillin Sod/Tazobactam Sod 50 mls @ 100 mls/hr 01/13/17 18:00 01/17/17 02: 49 Zosyn 3.375gm Ivpb (Pre-Docked) IVPB 100 mls/hr Q8H-IV [facility] Administration Protocol Levothyroxine Sodium 75 mcg 01/13/17 07:00 01/17/17 06:05 Synthroid - PO 75 mcg DAILY@0700 [facility] Administration Memantine 10 mg 01/13/17 10:00 01/16/17 10:47 Namenda - PO 10 mg DAILY [facility] Administration Mycophenolate Mofetil 500 mg 01/13/17 10:00 01/16/17 12:58 Cellcept - PO 500 mg DAILY [facility] Administration Non-Formulary Medication 2.5 ml 01/13/17 10:00 Olopatadine Hcl [Pataday] OP DAILY [facility] Prednisone 30 mg 01/15/17 11:35 01/16/17 22:14 Deltasone - PO 30 mg BID [facility] Administration Senna 2 tab 01/12/17 22:00 01/16/17 22:14 Senna - PO 2 tab HS [facility] Administration Solifenacin 5 mg 01/13/17 10:00 01/16/17 10:46 Vesicare - PO 5 mg DAILY [facility] Administration Tiotropium [place] 1 puff 01/14/17 11:45 01/16/17 10:48 Spiriva - IH 1 puff DAILY [facility] Administration ASSESSMENT/PLAN: Pt is a 86yo F with PMHx of COPD on home O2, asthma, dementia, lymphoma who presented from [facility] with worsening SOB, cough, and hypoxia found to be in Acute Hypoxic Resp failure due to acute COPD exacerbation and PNA (HCAP vs Aspiration). # Acute Hypoxic Respiratory Failure - Possibly secondary to COPD exacerbation + HCAP vs Aspiration PNA - Prednisone 40mg BID, Albuterol Nebs, Symbicort (steroid + LABA), Tudorza (LAMA ), O2 4L, Incentive Spirometer - Patient donig better, to be discharge on prednisone taper, nebs, symbicort, and spiriva # Possible Right Lower Lobe PNA - HCAP - CT showed consolidation in RLL, HCAP vs Aspiration PNA, no obstruction - Patient had received 4 days of Pip/Tazo IV Q8 and Azithromycin 500mg IV QD and will be discharged on Augmentin. # R Breast Mass - Family would like workup, last mammo in 2011 negative - Called [facility] to have them followup on a mammogram screen # Dementia - Continue home Donepezil HCl 10mg QD - Continue Memantine 10mg PO QD # History of HTN - Continue Diltiazem 240mg PO QD # History of HLD - Continue Atorvastatin 10mg QHS # History of Hypothyroidism - Continue Synthroid 75mcg QD # Hx of Lymphoma - Continue Mycophenalate 500mg PO QD #History of Overactive Bladder - Started Solifenacin 5mg PO QD (home med is Oxybutynin) #History of ANxiety and Depression - Continue Escitalopram 10mg PO QD - Continue Alprazolam 0.25mg PO TID # FEN - Fluids: None - Electrolytes: Monitor - Nutrition: Sodium controlled diet # Prophylaxis - DVT Prophylaxis: Heparin SQ - GI Prophylaxis: Not needed Visit type - Emergency Visit Emergency Visit: No - New Patient This patient is new to me today: No - Critical Care Critical Care patient: No - Discharge Referral Referred to [facility] Med P.C.: No
[2017-01-17 08:14] VITALS: BP 161/96; PULSE 79; TEMP 98.3
--- NOTE | 2017-01-17 10:35 | PN ---
Progress Note, CHARCOAL UNLOADER - Note Progress Note: 86 year old female seen on unit. Pt reports that she is consuming meals without s/s of dyphagia. Chart review confirms that pt is eating better that 70 % of most meals. Continue current diet: regular solids and thin liquids as tolerated. Observe standard aspiration precautions. Results given to dry pan charger and pcp via chart.
[2017-01-17] MEDS ORDERED: PT OWN MED DRAWER 7, Y5N ONE (10:52)
[2017-01-17] MEDS: BUDESONIDE/FORMETEROL FUMARATE 80/4.5 mcg INHALER IH SCH (10:55)
[2017-01-17] MEDS: TIOTROPIUM BROMIDE 18 MCG/INH (DEVICE W/ 5 CAPSULES) IH SCH (10:56)
[2017-01-17] MEDS: HEPARIN NA (PORCINE) 5,000 UNITS/ML 1ML VIAL SQ SCH (11:05)
[2017-01-17] MEDS: AZITHROMYCIN IVPB 500 MG/250 ML D5W PRE-DOCKED IVPB SCH (11:05)
[2017-01-17] MEDS: DOCUSATE SODIUM 100 MG CAPSULE (FP) PO SCH (11:06)
[2017-01-17] MEDS: predniSONE 20 MG TABLET (UD) PO SCH (11:06)
[2017-01-17] MEDS: ASPIRIN 81 MG CHEWABLE TABLETS PO SCH (11:07)
[2017-01-17] MEDS: MYCOPHENOLATE MOFETIL 500 MG TABLET PO SCH (11:07)
[2017-01-17] MEDS: GABAPENTIN 300 MG CAPSULE (FP) PO SCH (11:07)
[2017-01-17] MEDS: ESCITALOPRAM OXALATE 10 MG TABLET (FP) PO SCH (11:07)
[2017-01-17] MEDS: MEMANTINE HCL 10 MG TABLET (FP) PO SCH (11:07)
[2017-01-17] MEDS: SOLIFENACIN SUCCINATE 5 MG TAB (FP) PO SCH (11:07)
[2017-01-17] MEDS: CALCIUM 500MG/VIT-D 200 UNITS COMBO TABLET (FP) PO SCH (11:07)
[2017-01-17] MEDS: DONEPEZIL HCL 10 MG TABLET (FP) PO SCH (11:07)
--- NOTE | 2017-01-17 11:26 | PN ---
Progress Note (short form) - Note Progress Note: PULMONARY Denies shortness of breath or chest pain. No cough or wheezing. Last Vital Signs Temp Pulse Resp BP Pulse Ox 98.3 F 79 18 161/96 97 01/17/17 06:00 01/17/17 06:00 01/17/17 06:00 01/17/17 06:00 01/16/17 21:00 Gen: NAD in chair Heart: RRR Lung: decreased breath sounds at the bases Abd: soft, nontender Ext: no edema CBC, BMP 01/16/17 06:40 01/13/17 06:38 Active Medications Acetaminophen (Tylenol -) 650 mg PO Q4H PRN PRN Reason: FEVER OR PAIN Last Admin: 01/15/17 23:02 Dose: 650 mg Albuterol Sulfate (Ventolin 0.083% Nebulizer Soln -) 1 amp NEB Q4H PRN PRN Reason: SHORT OF BREATH/WHEEZING Last Admin: 01/17/17 01:33 Dose: 1 amp Alprazolam (Xanax -) 0.25 mg PO TID [facility] Last Admin: 01/17/17 06:05 Dose: 0.25 mg Aspirin (Asa -) 81 mg PO DAILY [facility] Last Admin: 01/17/17 11:07 Dose: 81 mg Atorvastatin Calcium (Lipitor -) 10 mg PO HS [facility] Last Admin: 01/16/17 22:14 Dose: 10 mg Azithromycin (Zithromax 500mg Ivpb (Pre-Docked)) 500 mg IVPB DAILY [facility] Last Admin: 01/17/17 11:05 Dose: 500 mg Budesonide/Formoterol Fumarate (Symbicort 80/4.5mcg -) 2 puff IH BID [facility] Last Admin: 01/17/17 10:55 Dose: 2 puff Calcium Carbonate/Cholecalciferol (Os-Juan 500+D -) 1 tab PO BID [facility] Last Admin: 01/17/17 11:07 Dose: 1 tab Diltiazem HCl (Cardizem Cd -) 240 mg PO DAILY [facility] Last Admin: 01/17/17 11:06 Dose: 240 mg Docusate Sodium (Colace -) 200 mg PO DAILY [facility] Last Admin: 01/17/17 11:06 Dose: 200 mg Donepezil HCl (Aricept -) 10 mg PO DAILY [facility] Last Admin: 01/17/17 11:07 Dose: 10 mg Escitalopram Oxalate (Lexapro -) 10 mg PO DAILY [facility] Last Admin: 01/17/17 11:07 Dose: 10 mg Gabapentin (Neurontin -) 300 mg PO BID [facility] Last Admin: 01/17/17 11:07 Dose: 300 mg Heparin Sodium (Porcine) (Heparin -) 5,000 unit SQ BID [facility] Last Admin: 01/17/17 11:05 Dose: 5,000 unit Piperacillin Sod/Tazobactam Sod (Zosyn 3.375gm Ivpb (Pre-Docked)) 50 mls @ 100 mls/hr IVPB Q8H-IV [facility] PRN Reason: Protocol Last Admin: 01/17/17 10:59 Dose: 100 mls/hr Levothyroxine Sodium (Synthroid -) 75 mcg PO DAILY@0700 [facility] Last Admin: 01/17/17 06:05 Dose: 75 mcg Memantine (Namenda -) 10 mg PO DAILY [facility] Last Admin: 01/17/17 11:07 Dose: 10 mg Mycophenolate Mofetil (Cellcept -) 500 mg PO DAILY [facility] Last Admin: 01/17/17 11:07 Dose: 500 mg Non-Formulary Medication (Olopatadine Hcl [Pataday]) 2.5 ml OP DAILY [facility] Prednisone (Deltasone -) 30 mg PO BID [facility] Last Admin: 01/17/17 11:06 Dose: 30 mg Senna (Senna -) 2 tab PO HS [facility] Last Admin: 01/16/17 22:14 Dose: 2 tab Solifenacin (Vesicare -) 5 mg PO DAILY [facility] Last Admin: 01/17/17 11:07 Dose: 5 mg Tiotropium [place] (Spiriva -) 1 puff IH DAILY [facility] Last Admin: 01/17/17 10:56 Dose: 1 puff A/P Acute on Chronic Hypoxic Respiratory Failure improving Pneumonia Acute COPD Exacerbation HTN Lymphoma Right Breast Mass Dementia - complete antibiotics - prednisone taper - inhaled bronchodilators - O2 to keep SpO2 >90% - DVT prophylaxis
--- NOTE | 2017-01-17 12:59 | PN ---
Teaching Attending Note Name of Resident: Harini Hernadez ATTENDING PHYSICIAN STATEMENT I saw and evaluated the patient. I reviewed the resident's note and discussed the case with the resident. I agree with the resident's findings and plan as documented. SUBJECTIVE:currently asymptomatic. resting comfortable OBJECTIVE: Last Vital Signs Temp Pulse Resp BP Pulse Ox 98.3 F 79 18 161/96 97 01/17/17 06:00 01/17/17 06:00 01/17/17 06:00 01/17/17 06:00 01/16/17 21:00 General NAD CV S1 S2 + Lungs CTA B/L no wheezing/rales/rhonchi ASSESSMENT AND PLAN: 86 y/o lady with h/o COPD , Lymphoma, dementia , HTN , HLP and other medical problems who presented with SOB. She was found to have acute COPD exacerbation and PNA 1- Acute hypoxic resp failure, due to acute COPD exacerbation and HCAP ( Vs aspiration )- clinically improved. steroid taper, augmentin x 7 days. pulmonary outpatient follow up. will need to have repeat CXR in 4-6 weeks. . much improved 2. R breast mass- unable to do mammogram as inpatient. will need outpatient follow up 3. d/c to assisted living.
[2017-01-17] MEDS ORDERED: PIPERACILLIN/TAZOB 3.375 GM 3.375 GM in DEXTROSE 5%-WATER - 50 ML IVPB SCH (14:17)
== END 2017-01-17 14:49 | DRG 177 ==
LOC: JER 11:02 → JERBED 15:00 → J6S 16:53
PROVIDERS: ADMIT Internal Medicine; ATTEND Internal Medicine
PROC: 3E0F7GC Introduction of Other Therapeutic Substance into Respiratory Tract, Via Natural or Artificial Opening (ICD-10-PCS; principal; 2017-01-12)
DX: J69.0 Pneumonitis due to inhalation of food and vomit (principal); J96.21 Acute and chronic respiratory failure with hypoxia; J44.1 Chronic obstructive pulmonary disease with (acute) exacerbation; J90 Pleural effusion, not elsewhere classified; N63 Unspecified lump in breast; E03.9 Hypothyroidism, unspecified; F41.9 Anxiety disorder, unspecified; K21.9 Gastro-esophageal reflux disease without esophagitis; F32.9 Major depressive disorder, single episode, unspecified; F03.90 Unspecified dementia, unspecified severity, without behavioral disturbance, psychotic disturbance, mood disturbance, and anxiety; Z99.81 Dependence on supplemental oxygen; D64.9 Anemia, unspecified; Z87.891 Personal history of nicotine dependence; Z85.72 Personal history of non-Hodgkin lymphomas
CPT/HCPCS: 36415; 36600; 71010-TC; 71250-TC; 80048; 80053; 81003; 82550; 82785; 82803; 83605; 83735; 84100; 84484; 85025; 85027; 85610; 87040; 87086; 87899; 93005; 93010; 94010; 94640; 97116-GP; 97161-GP; 99283-25; J1644; J7517

== ENCOUNTER 2017-01-22 19:50 | Emergency (ER) | payer OTHER ==
--- NOTE | 2017-01-22 20:01 | PDOC ---
History of Present Illness - General Stated Complaint: SHORTNESS OF BREATH Time Seen by Provider: 01/22/17 20:01 Past History - Past Medical History Allergies/Adverse Reactions: Allergies Allergy/AdvReac Type Severity Reaction Status Date / Time levofloxacin [From Levaquin] AdvReac Unknown Itching Verified 01/22/17 20:06 Home Medications: Ambulatory Orders Aa/Hydrolyzed Collagen, Whey [Lps 15-30 Liquid] 30 ml PO DAILY 01/12/17 Acetaminophen [Tylenol] 650 mg PO QID PRN 01/12/17 Albuterol Sulfate [Proventil HFA Inhaler -] 1 - 2 inh PO QID 01/12/17 Alprazolam [Xanax] 0.25 mg PO TID 01/12/17 Aspirin [Children's Aspirin] 81 mg PO DAILY 01/12/17 Atorvastatin Ca [Lipitor] 10 mg PO HS 01/12/17 Calcium Carbonate/Vitamin D3 [Oyster Shell 500-Vit D3 200 Tb] 1 each PO BID Diltiazem Cd [Cardizem Cd -] 240 mg PO DAILY 01/12/17 Docusate Sodium 200 mg PO DAILY 01/12/17 Donepezil HCl [Aricept] 10 mg PO DAILY 01/12/17 Escitalopram Oxalate [Lexapro -] 10 mg PO DAILY 01/12/17 Gabapentin 300 mg PO BID 01/12/17 Levothyroxine [Synthroid -] 75 mcg PO DAILY 01/12/17 Loratadine [Allergy] 10 mg PO DAILY 01/12/17 Memantine HCl [Namenda -] 10 mg PO DAILY 01/12/17 Multivitamin with Iron [Daily Mabel with Iron] 1 each PO DAILY 01/12/17 Mycophenolate Mofetil [Cellcept] 500 mg PO DAILY 01/12/17 Olopatadine HCl [Pataday] 2.5 ml OP DAILY 01/12/17 Oxybutynin Chloride [Oxybutynin Chloride ER] 5 mg PO DAILY 01/12/17 Polyethylene Glycol 3350 [Miralax 119 gm Btl -] 17 gm PO DAILY 01/12/17 Sennosides [Senna] 17.2 mg PO HS 01/12/17 Prednisone 15 mg PO DAILY #20 tablet 01/16/17 Amox-Tr/K Cl [Augmentin 875-125mg Tablet -] 1 tab PO BID #14 tablet 01/17/17 Budesonide/Formeterol Fumarate [SYMBICORT 80/4.5mcg -] 2 puff IH BID #1 inhaler 01/17/17 Alprazolam [Xanax] 0.25 mg PO TID 01/22/17 Anemia: No Asthma: Yes Cancer: Yes CVA: No COPD: Yes CHF: No Dementia: Yes GI Disorders: Yes (GERD) Disorders: Yes (BLADDER DROP) HTN: Yes Hypercholesterolemia: Yes 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, anxiety) Suicide Attempt (Hx): No Thyroid Disease: Yes (hypothyroid) - Surgical History Lung Surgery: Yes - Immunization History Td Vaccination: (unknown) Immunization Up to Date: Yes - Psycho/Social/Smoking Cessation Hx Anxiety: No Suicidal Ideation: No Smoking Status: No Smoking History: Former smoker Years of Tobacco Use: 40 Have you smoked in the past 12 months: No Number of Cigarettes Smoked Daily: 0 If you are a former smoker, when did you quit?: 45 years ago Cigars Per Day: 0 Hx Alcohol Use: No Drug/Substance Use Hx: No Substance Use Type: None Hx Substance Use Treatment: No ED Treatment Course - LABORATORY CBC & Chemistry Diagram: 01/22/17 20:50 01/22/17 20:50 Medical Decision Making - Medical Decision Making 01/22/17 21:26 PT SEEN AND EXAMINED WITH THE RESIDENT. SHE HAS SOB AND ANXIETY. SHE FELT ANXIOUS AFTER HAVING RECEIVED AN ALBUTEROL NEBULIZER AT THE CT. SHE FEELS WEAK AND SHE STATES THAT SHE HASN'T BEEN DRINKING ENOUGH WATER AND ON EXAM HER TONGUE IS DRY. WE WILL CHECK LABS AND HYDRATE THE PATIENT GENTLY. *DC/Admit/Observation/Transfer Diagnosis at time of Disposition: COPD (chronic obstructive pulmonary disease), Viral respiratory infection - Discharge Dispostion Disposition: HOME Condition at time of disposition: Stable Admit: No
[2017-01-22 20:17] VITALS: PULSE 84; TEMP 98.1; BMI 26.5
[2017-01-22] MEDS ORDERED: SODIUM CHLORIDE 0.9% 1000 ML INFUS.BAG IV ONE (20:34)
--- NOTE | 2017-01-22 20:47 | PDOC ---
History of Present Illness - General Chief Complaint: Shortness of Breath Stated Complaint: SHORTNESS OF BREATH Time Seen by Provider: 01/22/17 20:01 History Source: Patient, Family (Daughter) Exam Limitations: No Limitations - History of Present Illness Initial Comments: 01/22/17 20:36 The patient is an 86F with a PMH of COPD, HTN, dementia, asthma, lymphoma, HLD, anemia, and hypothyroidism who presents to the ED after an episode of shortness of breath. The daughter is at bedside and is providing most of the history. The daughter states that the patient was walking to her room, about 75-100 feet, and felt short of breath. The daughter administered a nebulizer treatment in the patient's room and state that the patient became very anxious and felt short of breath again. EMS was called. The daughter states that the patient felt better as she was being escorted by EMS.The patient currently does not complain of SOB. The patient was discharged on 01/17 after being treated for a LLL pna. Allergies: Levaquin Social: Former smoker, does not drink or use recreational drugs Past History - Past Medical History Allergies/Adverse Reactions: Allergies Allergy/AdvReac Type Severity Reaction Status Date / Time levofloxacin [From Levaquin] AdvReac Unknown Itching Verified 01/22/17 20:06 Home Medications: Ambulatory Orders RX: Aa/Hydrolyzed Collagen, Whey [Lps 15-30 Liquid] 30 ml PO DAILY 01/12/17 RX: Acetaminophen [Tylenol] 650 mg PO QID PRN 01/12/17 RX: Albuterol Sulfate [Proventil HFA Inhaler -] 1 - 2 inh PO QID 01/12/17 RX: Alprazolam [Xanax] 0.25 mg PO TID 01/12/17 RX: Aspirin [Children's Aspirin] 81 mg PO DAILY 01/12/17 RX: Atorvastatin Ca [Lipitor] 10 mg PO HS 01/12/17 RX: Calcium Carbonate/Vitamin D3 [Oyster Shell 500-Vit D3 200 Tb] 1 each PO BID 01/12/17 RX: Diltiazem Cd [Cardizem Cd -] 240 mg PO DAILY 01/12/17 RX: Docusate Sodium 200 mg PO DAILY 01/12/17 RX: Donepezil HCl [Aricept] 10 mg PO DAILY 01/12/17 RX: Escitalopram Oxalate [Lexapro -] 10 mg PO DAILY 01/12/17 RX: Gabapentin 300 mg PO BID 01/12/17 RX: Levothyroxine [Synthroid -] 75 mcg PO DAILY 01/12/17 RX: Loratadine [Allergy] 10 mg PO DAILY 01/12/17 RX: Memantine HCl [Namenda -] 10 mg PO DAILY 01/12/17 RX: Multivitamin with Iron [Daily Mabel with Iron] 1 each PO DAILY 01/12/17 RX: Mycophenolate Mofetil [Cellcept] 500 mg PO DAILY 01/12/17 RX: Olopatadine HCl [Pataday] 2.5 ml OP DAILY 01/12/17 RX: Oxybutynin Chloride [Oxybutynin Chloride ER] 5 mg PO DAILY 01/12/17 RX: Polyethylene Glycol 3350 [Miralax 119 gm Btl -] 17 gm PO DAILY 01/12/17 RX: Sennosides [Senna] 17.2 mg PO HS 01/12/17 RX: Prednisone 15 mg PO DAILY #20 tablet 01/16/17 RX: Amox-Tr/K Cl [Augmentin 875-125mg Tablet -] 1 tab PO BID #14 tablet RX: Budesonide/Formeterol Fumarate [SYMBICORT 80/4.5mcg -] 2 puff IH BID #1 inhaler 01/17/17 Alprazolam [Xanax] 0.25 mg PO TID 01/22/17 Anemia: No Asthma: Yes Cancer: Yes CVA: No COPD: Yes CHF: No Dementia: Yes GI Disorders: Yes (GERD) Disorders: Yes (BLADDER DROP) HTN: Yes Hypercholesterolemia: Yes 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, anxiety) Suicide Attempt (Hx): No Thyroid Disease: Yes (hypothyroid) - Surgical History Lung Surgery: Yes - Immunization History Td Vaccination: (unknown) Immunization Up to Date: Yes - Psycho/Social/Smoking Cessation Hx Anxiety: No Suicidal Ideation: No Smoking Status: No Smoking History: Never smoked Years of Tobacco Use: 40 Have you smoked in the past 12 months: No Number of Cigarettes Smoked Daily: 0 If you are a former smoker, when did you quit?: 45 years ago Cigars Per Day: 0 Information on smoking cessation initiated: No Hx Alcohol Use: No Drug/Substance Use Hx: No Substance Use Type: None Hx Substance Use Treatment: No Review of Systems - Review of Systems Able to Perform ROS?: Yes Is the patient limited Pashto proficient: No Constitutional: Yes: Other (Fatigue). No: Chills, Fever Respiratory: No: Cough, Shortness of Breath, SOB at Rest Cardiac (ROS): No: Chest Pain ABD/GI: No: Nausea, Vomiting, Other (Abd pain) *Physical Exam - Vital Signs Last Vital Signs Temp Pulse Resp BP Pulse Ox 98.1 F 84 18 125/74 99 01/22/17 20:06 01/22/17 20:06 01/22/17 20:06 01/22/17 20:06 01/22/17 20:06 - Physical Exam General Appearance: Yes: Nourished, Appropriately Dressed. No: Apparent Distress Respiratory/Chest: positive: Rales (bibasilar ). negative: Chest Tender, Respiratory Distress Cardiovascular: positive: Regular Rhythm, Regular Rate, S1, S2, Systolic Murmur Gastrointestinal/Abdominal: positive: Flat, Soft. negative: Tender Extremity: negative: Pedal Edema, Swelling, Calf Tenderness, Erythema, Inflammation Integumentary: positive: Normal Color, Dry, Warm Neurologic: positive: Fully Oriented, Alert, Normal Mood/Affect ED Treatment Course - LABORATORY CBC & Chemistry Diagram: 01/22/17 20:50 01/22/17 20:50 - RADIOLOGY Radiology Studies Ordered: Category Date Time Status CHEST X-RAY PORTABLE* [RAD] Stat Radiology 01/22/17 20:34 Ordered Medical Decision Making - Medical Decision Making 01/22/17 21:07 The patient is an 86F with an extensive PMH who presents to the ED after a resolved episode of SOB. The patient currently has no complaints and is satting 100% on 4L. I have ordered basic labs and a CXR to monitor the patient for a recurrent infectious process. She was discharged on 01/17/17 from the hospital for a pna. 01/22/17 22:09 Patient has a WBC count of 14.5, which is up from 10.4 on discharge from previous admission. I have ordered a straight cath to look for a UTI. 01/22/17 23:26 UA is clear. Patient is vitally stable. Has no complaints. Will d/c. *DC/Admit/Observation/Transfer Diagnosis at time of Disposition: Shortness of breath COPD (chronic obstructive pulmonary disease) Qualifiers: COPD type: unspecified COPD Qualified Code(s): J44.9 - Chronic obstructive pulmonary disease, unspecified - Discharge Dispostion Disposition: HOME Condition at time of disposition: Stable Admit: No - Referrals Referrals: Christina Oakes MD [Primary Care Provider] - - Patient Instructions Additional Instructions: Please return to the ER if symptoms persist, worsen, or if new symptoms arise. - Attestations Physician Attestion: 01/22/17 23:25 I, Dr. Martín Orourke, attest that this document has been prepared under my direction and personally reviewed by me in its entirety. I further attest, that it accurately reflects all work, treatment, procedures and medical decision -making performed by me.
[2017-01-22 21:17] LABS: BASOPHIL 0.7 % (0-2.0); MCH 31.3 pg (25.7-33.7); MCHC 32.6 g/dl (32.0-36.0); MEAN CELL VOLUME 95.9 fl (80-96); MEAN PLT VOLUME 8.3 fl (7.5-11.1); NEUTROPHILS 87.1 % (42.8-82.8); PLATELET COUNT 276 K/MM3 (134-434); RDW 14.5 % (11.6-15.6); WHITE BLOOD COUNT 14.5 K/mm3 (4.0-10.0)
[2017-01-22 21:44] LABS: ALBUMIN 3.1 g/dl (3.4-5.0); ANION GAP 6 (8-16); BILIRUBIN,TOTAL 0.3 mg/dL (0.2-1.0); CALCIUM 9.5 mg/dL (8.5-10.1); CO2 34 mmol/L (21-32); CREATININE 0.8 mg/dL (0.55-1.02); GLUCOSE,RANDOM 130 mg/dL (74-106); SGPT/ALT 49 U/L (12-78)
[2017-01-22 21:45] LABS: ALK PHOS 75 U/L (45-117)
[2017-01-22 21:51] LABS: SGOT/AST 36 U/L (15-37)
[2017-01-22 22:30] LABS: URINE APPEARANCE CLEAR; URINE BILIRUBIN NEGATIVE (NEGATIVE); URINE BLOOD NEGATIVE (NEGATIVE); URINE COLOR YELLOW; URINE GLUCOSE (UA) 1+ (NEGATIVE); URINE KETONE TRACE (NEGATIVE); URINE LEUK ESTERASE NEGATIVE (NEGATIVE); URINE NITRITE NEGATIVE (NEGATIVE); URINE PROTEIN NEGATIVE (NEGATIVE); URINE UROBILINOGEN NEGATIVE mg/dL (0.2-1.0)
[2017-01-22 23:53] VITALS: BP 129/87
--- NOTE | 2017-01-25 12:57 | EKG ---
Test Reason : Blood Pressure : / mmHG Vent. Rate : 077 BPM Atrial Rate : 077 BPM P-R Int : 138 ms QRS Dur : 094 ms QT Int : 406 ms P-R-T Axes : 067 017 040 degrees QTc Int : 459 ms SINUS RHYTHM WITH PREMATURE ATRIAL COMPLEXES OTHERWISE NORMAL ECG WHEN COMPARED WITH ECG OF 12-JAN-2017 11:25, PREMATURE VENTRICULAR COMPLEXES ARE NO LONGER PRESENT PREMATURE ATRIAL COMPLEXES ARE NOW PRESENT ST NO LONGER DEPRESSED IN LATERAL LEADS NONSPECIFIC T WAVE ABNORMALITY, IMPROVED IN INFERIOR LEADS Confirmed by BRAYAN SHIRLEY, SIS ([id number]) on 01/25/2017 12:56:57 PM Referred By: Confirmed By:SIS SCHMIDT MD
== END 2017-01-23 00:18 ==
LOC: JER 19:50
DX: J44.9 Chronic obstructive pulmonary disease, unspecified (principal); J06.9 Acute upper respiratory infection, unspecified; J45.909 Unspecified asthma, uncomplicated; I10 Essential (primary) hypertension; F41.8 Other specified anxiety disorders; E78.00 Pure hypercholesterolemia, unspecified; E03.9 Hypothyroidism, unspecified; F03.90 Unspecified dementia, unspecified severity, without behavioral disturbance, psychotic disturbance, mood disturbance, and anxiety
CPT/HCPCS: 36415; 71010-TC; 80053; 81003; 85025; 87086; 93005; 93010; 99283-25

== ENCOUNTER 2017-01-27 21:59 | Emergency (ER) | payer OTHER ==
--- NOTE | 2017-01-27 22:13 | PDOC ---
History of Present Illness - General Chief Complaint: Shortness of Breath Stated Complaint: DIFFICULTY BREATHING Time Seen by Provider: 01/27/17 22:13 Past History - Past Medical History Allergies/Adverse Reactions: Allergies Allergy/AdvReac Type Severity Reaction Status Date / Time levofloxacin [From Levaquin] AdvReac Unknown Itching Verified 01/22/17 20:06 Home Medications: Ambulatory Orders Aa/Hydrolyzed Collagen, Whey [Lps 15-30 Liquid] 30 ml PO DAILY 01/12/17 Acetaminophen [Tylenol] 650 mg PO QID PRN 01/12/17 Albuterol Sulfate [Proventil HFA Inhaler -] 1 - 2 inh PO QID 01/12/17 Alprazolam [Xanax] 0.25 mg PO TID 01/12/17 Aspirin [Children's Aspirin] 81 mg PO DAILY 01/12/17 Atorvastatin Ca [Lipitor] 10 mg PO HS 01/12/17 Calcium Carbonate/Vitamin D3 [Oyster Shell 500-Vit D3 200 Tb] 1 each PO BID Diltiazem Cd [Cardizem Cd -] 240 mg PO DAILY 01/12/17 Docusate Sodium 200 mg PO DAILY 01/12/17 Donepezil HCl [Aricept] 10 mg PO DAILY 01/12/17 Escitalopram Oxalate [Lexapro -] 10 mg PO DAILY 01/12/17 Gabapentin 300 mg PO BID 01/12/17 Levothyroxine [Synthroid -] 75 mcg PO DAILY 01/12/17 Loratadine [Allergy] 10 mg PO DAILY 01/12/17 Memantine HCl [Namenda -] 10 mg PO DAILY 01/12/17 Multivitamin with Iron [Daily Mabel with Iron] 1 each PO DAILY 01/12/17 Mycophenolate Mofetil [Cellcept] 500 mg PO DAILY 01/12/17 Olopatadine HCl [Pataday] 2.5 ml OP DAILY 01/12/17 Oxybutynin Chloride [Oxybutynin Chloride ER] 5 mg PO DAILY 01/12/17 Polyethylene Glycol 3350 [Miralax 119 gm Btl -] 17 gm PO DAILY 01/12/17 Sennosides [Senna] 17.2 mg PO HS 01/12/17 Prednisone 15 mg PO DAILY #20 tablet 01/16/17 Amox-Tr/K Cl [Augmentin 875-125mg Tablet -] 1 tab PO BID #14 tablet 01/17/17 Budesonide/Formeterol Fumarate [SYMBICORT 80/4.5mcg -] 2 puff IH BID #1 inhaler 01/17/17 Alprazolam [Xanax] 0.25 mg PO TID 01/22/17 Anemia: No Asthma: Yes Cancer: Yes CVA: No COPD: Yes CHF: No Dementia: Yes GI Disorders: Yes (GERD) Disorders: Yes (BLADDER DROP) HTN: Yes Hypercholesterolemia: Yes 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
[2017-01-27 22:16] VITALS: BMI 24.9
[2017-01-27 22:37] VITALS: BP 135/75; PULSE 75; TEMP 98
--- NOTE | 2017-01-27 22:53 | PDOC ---
History of Present Illness - General Chief Complaint: Shortness of Breath Stated Complaint: DIFFICULTY BREATHING Time Seen by Provider: 01/27/17 22:13 History Source: Patient, Family (daughter) Exam Limitations: Dementia - History of Present Illness Initial Comments: 01/27/17 23:40 This is an 86yo woman with a PMH of COPD, HTN, dementia, asthma, lymphoma, HLD, anemia, and hypothyroidism who presents to the ED after an episode of shortness of breath. The daughter states that the patient was walking to her room, about 75-100 feet, and felt short of breath. EMS was called. The patient currently does not complain of SOB. The patient was discharged on 01/17 after being treated for a left lower lobe PNA. Timing/Duration: reports: just prior to arrival Past History - Travel Traveled outside of the country in the last 30 days: No Close contact w/someone who was outside of country & ill: No - Past Medical History Allergies/Adverse Reactions: Allergies Allergy/AdvReac Type Severity Reaction Status Date / Time levofloxacin [From Levaquin] AdvReac Unknown Itching Verified 01/22/17 20:06 Home Medications: Ambulatory Orders Aa/Hydrolyzed Collagen, Whey [Lps 15-30 Liquid] 30 ml PO DAILY 01/12/17 Acetaminophen [Tylenol] 650 mg PO QID PRN 01/12/17 Albuterol Sulfate [Proventil HFA Inhaler -] 1 - 2 inh PO QID 01/12/17 Alprazolam [Xanax] 0.25 mg PO TID 01/12/17 Aspirin [Children's Aspirin] 81 mg PO DAILY 01/12/17 Atorvastatin Ca [Lipitor] 10 mg PO HS 01/12/17 Calcium Carbonate/Vitamin D3 [Oyster Shell 500-Vit D3 200 Tb] 1 each PO BID Diltiazem Cd [Cardizem Cd -] 240 mg PO DAILY 01/12/17 Docusate Sodium 200 mg PO DAILY 01/12/17 Donepezil HCl [Aricept] 10 mg PO DAILY 01/12/17 Escitalopram Oxalate [Lexapro -] 10 mg PO DAILY 01/12/17 Gabapentin 300 mg PO BID 01/12/17 Levothyroxine [Synthroid -] 75 mcg PO DAILY 01/12/17 Loratadine [Allergy] 10 mg PO DAILY 01/12/17 Memantine HCl [Namenda -] 10 mg PO DAILY 01/12/17 Multivitamin with Iron [Daily Mabel with Iron] 1 each PO DAILY 01/12/17 Mycophenolate Mofetil [Cellcept] 500 mg PO DAILY 01/12/17 Olopatadine HCl [Pataday] 2.5 ml OP DAILY 01/12/17 Oxybutynin Chloride [Oxybutynin Chloride ER] 5 mg PO DAILY 01/12/17 Polyethylene Glycol 3350 [Miralax 119 gm Btl -] 17 gm PO DAILY 01/12/17 Sennosides [Senna] 17.2 mg PO HS 01/12/17 Prednisone 15 mg PO DAILY #20 tablet 01/16/17 Budesonide/Formeterol Fumarate [SYMBICORT 80/4.5mcg -] 2 puff IH BID #1 inhaler 01/17/17 Anemia: No Asthma: Yes Cancer: Yes CVA: No COPD: Yes CHF: No Dementia: Yes GI Disorders: Yes (GERD) Disorders: Yes (BLADDER DROP) HTN: Yes Hypercholesterolemia: Yes 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, anxiety) Suicide Attempt (Hx): No Thyroid Disease: Yes (hypothyroid) - Surgical History Lung Surgery: Yes - Immunization History Td Vaccination: (unknown) Immunization Up to Date: Yes - Psycho/Social/Smoking Cessation Hx Anxiety: No Suicidal Ideation: No Smoking Status: No Smoking History: Never smoked Years of Tobacco Use: 40 Have you smoked in the past 12 months: No Number of Cigarettes Smoked Daily: 0 If you are a former smoker, when did you quit?: 45 years ago Cigars Per Day: 0 Information on smoking cessation initiated: No Hx Alcohol Use: No Drug/Substance Use Hx: No Substance Use Type: None Hx Substance Use Treatment: No Respiratory Specific PMHX - Complaint Specific PMHX Angina: No Bronchitis: Yes Pneumonia: No Pulmonary Embolus: No TB (Tuberculosis): No Review of Systems - Review of Systems Able to Perform ROS?: Yes Is the patient limited Indonesian proficient: No Constitutional: No: Symptoms Reported HEENTM: No: Symptoms Reported Respiratory: Yes: Shortness of Breath. No: Cough Cardiac (ROS): No: Symptoms Reported ABD/GI: No: Symptoms Reported : No: Symptoms Reported Musculoskeletal: No: Symptoms Reported Integumentary: No: Symptoms Reported Neurological: No: Symptoms reported *Physical Exam - Vital Signs Last Vital Signs Temp Pulse Resp BP Pulse Ox 98.0 F 75 16 135/75 96 01/27/17 22:34 01/27/17 22:34 01/27/17 22:34 01/27/17 22:34 01/27/17 22:34 - Physical Exam General Appearance: Yes: Appropriately Dressed. No: Apparent Distress HEENT: positive: EOMI, Normal ENT Inspection, Normal Voice, Pharynx Normal Neck: positive: Trachea midline, Supple. negative: Tender Respiratory/Chest: positive: Lungs Clear, Normal Breath Sounds. negative: Respiratory Distress, Accessory Muscle Use Cardiovascular: positive: S1, S2, Murmur (2/6 systolic murmur present at left sternal border), Irregularly Irregular. negative: Edema Gastrointestinal/Abdominal: positive: Normal Bowel Sounds, Soft. negative: Tender, Organomegaly Musculoskeletal: positive: Normal Inspection. negative: CVA Tenderness Extremity: positive: Normal Capillary Refill, Normal Range of Motion Integumentary: positive: Normal Color, Dry, Warm Neurologic: positive: signing agent II-XII NML intact, Fully Oriented, Alert, Motor Strength 11/04 ED Treatment Course - LABORATORY CBC & Chemistry Diagram: 01/27/17 23:03 01/27/17 23:03 Medical Decision Making - Medical Decision Making 01/27/17 23:42 A/P: This is an 86yo woman with a PMH of COPD, HTN, dementia, asthma, lymphoma, HLD, anemia, and hypothyroidism who presents to the ED after an episode of shortness of breath. The daughter states that the patient was walking to her room, about 75-100 feet, and felt short of breath. EMS was called. The patient currently does not complain of SOB. The patient was discharged on 01/17 after being treated for a left lower lobe PNA. Lungs CTAB. Speaking in full sentences. DDx: PNA vs COPD exacerbation - duonebs - CXR - CBC, CMP, UA, troponin - EKG 01/28/17 02:12 Feels better. troponin (-) CXR- No acute pathology. Improved from study done 01/22 Will discharge back to [facility] with daughter. *DC/Admit/Observation/Transfer Diagnosis at time of Disposition: Shortness of breath - Discharge Dispostion Disposition: HOME Condition at time of disposition: Improved Admit: No - Referrals Referrals: Christina Oakes MD [Primary Care Provider] - - Patient Instructions Additional Instructions: Drink plenty of fluids. Eat a well balanced diet. See your primary doctor within 2 weeks. Return to the ER for worsening SOB, cough, chest pain or any other complaints - Post Discharge Activity
[2017-01-27] MEDS ORDERED: ALBUTEROL SO4 2.5/IPRATROPIUM 0.5 INH SOL 3 ML VIAL.NEB. NEB ONE (22:57)
[2017-01-27 23:14] LABS: BASOPHIL 0.6 % (0-2.0); EOSINOPHIL 0.1 % (0-4.5); MCH 31.1 pg (25.7-33.7); MCHC 32.2 g/dl (32.0-36.0); MEAN CELL VOLUME 96.7 fl (80-96); MEAN PLT VOLUME 8.2 fl (7.5-11.1); NEUTROPHILS 81.2 % (42.8-82.8); PLATELET COUNT 227 K/MM3 (134-434); RDW 14.8 % (11.6-15.6); WHITE BLOOD COUNT 16.5 K/mm3 (4.0-10.0)
[2017-01-27 23:47] LABS: ALBUMIN 3.2 g/dl (3.4-5.0); ANION GAP 7 (8-16); BILIRUBIN,TOTAL 0.3 mg/dL (0.2-1.0); CALCIUM 9.9 mg/dL (8.5-10.1); CO2 36 mmol/L (21-32); CREATININE 0.8 mg/dL (0.55-1.02); GLUCOSE,RANDOM 83 mg/dL (74-106); SGOT/AST 23 U/L (15-37); SGPT/ALT 46 U/L (12-78); TOT PROT 5.9 g/dl (6.4-8.2)
[2017-01-27 23:49] LABS: ALK PHOS 74 U/L (45-117); CPK 36 IU/L (26-192); TROPONIN I < 0.02 ng/ml (0.00-0.05)
--- NOTE | 2017-01-29 18:39 | EKG ---
Test Reason : Blood Pressure : / mmHG Vent. Rate : 090 BPM Atrial Rate : 090 BPM P-R Int : 138 ms QRS Dur : 092 ms QT Int : 374 ms P-R-T Axes : 064 018 028 degrees QTc Int : 457 ms SINUS RHYTHM WITH PREMATURE SUPRAVENTRICULAR COMPLEXES AND WITH OCCASIONAL PREMATURE VENTRICULAR COMPLEXES BASELINE ARTIFACT WHEN COMPARED WITH ECG OF 22-JAN-2017 22:26, PREMATURE VENTRICULAR COMPLEXES ARE NOW PRESENT REPEAT EKG IF CLINICALLY INDICATED Confirmed by WAQAR LOPEZ MD ([id number]) on 01/29/2017 6:39:19 PM Referred By: Confirmed By:WAQAR LOPEZ MD
== END 2017-01-28 02:35 | disposition home or self-care (01) ==
LOC: JER 21:59
PROC: 3E0F7GC Introduction of Other Therapeutic Substance into Respiratory Tract, Via Natural or Artificial Opening (ICD-10-PCS; principal; 2017-01-27)
DX: J44.1 Chronic obstructive pulmonary disease with (acute) exacerbation (principal); J45.909 Unspecified asthma, uncomplicated; I10 Essential (primary) hypertension; E78.00 Pure hypercholesterolemia, unspecified; E03.9 Hypothyroidism, unspecified; F41.8 Other specified anxiety disorders; F03.90 Unspecified dementia, unspecified severity, without behavioral disturbance, psychotic disturbance, mood disturbance, and anxiety
CPT/HCPCS: 36415; 71020-TC; 80053; 84484; 85025; 93005; 93010; 94640; 99285-25

== ENCOUNTER 2017-02-06 23:04 | Emergency (ER) | payer OTHER ==
--- NOTE | 2017-02-06 23:23 | PDOC ---
History of Present Illness <JorgeCamilaleonard Haung - Last Filed: 02/07/17 01:22> - General History Source: Patient Exam Limitations: No Limitations - History of Present Illness Initial Comments: 02/07/17 00:06 The patient is an 86 year old female who presents to the ED with complaints of hypertension, hyperlipidemia, COPD, lymphoma, hypothyroidism, and anemia who presents to the ED with complaints of worsening shortness of breath. The patient states that she is chronically short of breath, but today it became progressively worse. She states she is on home O2 but is not sure how much she gets. The patient denies any other complaints at this time. She denies any fevers or illness. 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 <Camila Patel - Last Filed: 02/07/17 01:22> <Lima Teixeira - Last Filed: 02/07/17 01:47> - Past Medical History Allergies/Adverse Reactions: Allergies Allergy/AdvReac Type Severity Reaction Status Date / Time levofloxacin [From Levaquin] AdvReac Unknown Itching Verified 02/06/17 23:52 Home Medications: Ambulatory Orders Aa/Hydrolyzed Collagen, Whey [Lps 15-30 Liquid] 30 ml PO DAILY 01/12/17 Acetaminophen [Tylenol] 650 mg PO QID PRN 01/12/17 Albuterol Sulfate [Proventil HFA Inhaler -] 1 - 2 inh PO QID 01/12/17 Alprazolam [Xanax] 0.25 mg PO TID 01/12/17 Aspirin [Children's Aspirin] 81 mg PO DAILY 01/12/17 Atorvastatin Ca [Lipitor] 10 mg PO HS 01/12/17 Calcium Carbonate/Vitamin D3 [Oyster Shell 500-Vit D3 200 Tb] 1 each PO BID Diltiazem Cd [Cardizem Cd -] 240 mg PO DAILY 01/12/17 Docusate Sodium 200 mg PO DAILY 01/12/17 Donepezil HCl [Aricept] 10 mg PO DAILY 01/12/17 Escitalopram Oxalate [Lexapro -] 10 mg PO DAILY 01/12/17 Gabapentin 300 mg PO BID 01/12/17 Levothyroxine [Synthroid -] 75 mcg PO DAILY 01/12/17 Loratadine [Allergy] 10 mg PO DAILY 01/12/17 Memantine HCl [Namenda -] 10 mg PO DAILY 01/12/17 Multivitamin with Iron [Daily Mabel with Iron] 1 each PO DAILY 01/12/17 Mycophenolate Mofetil [Cellcept] 500 mg PO DAILY 01/12/17 Olopatadine HCl [Pataday] 2.5 ml OP DAILY 01/12/17 Oxybutynin Chloride [Oxybutynin Chloride ER] 5 mg PO DAILY 01/12/17 Polyethylene Glycol 3350 [Miralax 119 gm Btl -] 17 gm PO DAILY 01/12/17 Sennosides [Senna] 17.2 mg PO HS 01/12/17 Prednisone 15 mg PO DAILY #20 tablet 01/16/17 Budesonide/Formeterol Fumarate [SYMBICORT 80/4.5mcg -] 2 puff IH BID #1 inhaler 01/17/17 Respiratory Specific PMHX - Complaint Specific PMHX Angina: No Bronchitis: Yes Pneumonia: No Pulmonary Embolus: No TB (Tuberculosis): No <Camila Patel - Last Filed: 02/07/17 01:22> Review of Systems - Review of Systems Able to Perform ROS?: Yes Comments:: 02/07/17 00:08 CONSTITUTIONAL: Absent: fever, chills, diaphoresis, generalized weakness, malaise, loss of appetite HEENT: Absent: rhinorrhea, nasal congestion, throat pain, throat swelling, difficulty swallowing, mouth swelling, ear pain, eye pain, visual Changes CARDIOVASCULAR: Absent: chest pain, syncope, palpitations, irregular heart rate, lightheadedness , peripheral edema RESPIRATORY: Present: shortness of breath Absent: cough, dyspnea with exertion, orthopnea, wheezing, stridor, hemoptysis GASTROINTESTINAL: Absent: abdominal pain, abdominal distension, nausea, vomiting, diarrhea, constipation, melena, hematochezia GENITOURINARY: Absent: dysuria, frequency, urgency, hesitancy, hematuria, flank pain, genital pain MUSCULOSKELETAL: Absent: myalgia, arthralgia, joint swelling SKIN: Absent: rash, itching, pallor HEMATOLOGIC/IMMUNOLOGIC: Absent: easy bleeding, easy bruising, lymphadenopathy, frequent infections ENDOCRINE: Absent: unexplained weight gain, unexplained weight loss, heat intolerance, cold intolerance NEUROLOGIC: Absent: headache, focal weakness or paresthesias, dizziness, unsteady gait, seizure, mental status changes, bladder or bowel incontinence PSYCHIATRIC: Absent: anxiety, depression, suicidal or homicidal ideation, hallucinations. All Other Systems: Reviewed and Negative <Lima Teixeira - Last Filed: 02/07/17 01:47> *Physical Exam - Vital Signs Last Vital Signs Temp Pulse Resp BP Pulse Ox 98.4 F 86 18 145/92 100 02/06/17 23:11 02/06/17 23:11 02/06/17 23:11 02/06/17 23:11 02/06/17 23:11 - Physical Exam Comments: 02/07/17 00:09 GENERAL: Well developed, well nourished. Awake and alert. No acute distress. HEENT: Normocephalic, atraumatic. PERRLA, EOMI. No conjunctival pallor. Sclera are non- icteric. Moist mucous membranes. Oropharynx is clear. NECK: Supple. Full ROM. No JVD. Carotid pulses 2+ and symmetric, without bruits. No thyromegaly. No lymphadenopathy. CARDIOVASCULAR: Grade III/ murmur. No rubs, or gallops. Distal pulses are 2+ and symmetric. PULMONARY: No evidence of respiratory distress. Lungs clear to auscultation bilaterally. No wheezing, rales or rhonchi. ABDOMINAL: Soft. Non-tender. Non-distended. No rebound or guarding. No organomegaly. Normoactive bowel sounds. MUSCULOSKELETAL Normal range of motion at all joints. No bony deformities or tenderness. No CVA tenderness. EXTREMITIES: No cyanosis. No clubbing. No edema. No calf tenderness. SKIN: Warm and dry. Normal capillary refill. No rashes. No jaundice. NEUROLOGICAL: Alert, awake, appropriate. Cranial nerves 2-12 intact. No deficits to light touch and temperature in face, upper extremities and lower extremities. No motor deficits in the in face, upper extremities and lower extremities. Normoreflexic in the upper and lower extremities. Normal speech. Toes are down-going bilaterally. Gait is normal without ataxia. PSYCHIATRIC: Cooperative. Good eye contact. Appropriate mood and affect. <Lima Teixeira - Last Filed: 02/07/17 01:47> ED Treatment Course - LABORATORY CBC & Chemistry Diagram: 02/06/17 23:25 02/06/17 23:25 <Camila Patel - Last Filed: 02/07/17 01:22> - LABORATORY CBC & Chemistry Diagram: 02/06/17 23:25 02/06/17 23:25 - Medications Given in the ED: ED Medications Discontinued Medications Generic Name Dose Route Start Last Admin Trade Name Freq PRN Reason Stop Dose Admin Albuterol/Ipratropium 1 amp 02/06/17 23:24 02/06/17 23:51 Duoneb - NEB 02/06/17 23:25 1 amp ONCE ONE Administration Methylprednisolone Sodium Succinate 125 mg 02/06/17 23:24 02/06/17 23:51 Solu-Medrol - IVPB 02/06/17 23:25 125 mg ONCE ONE Administration <Lima Teixeira - Last Filed: 02/07/17 01:47> Medical Decision Making - Medical Decision Making 02/07/17 01:18 86-year-old female brought in by ambulance from [facility] for shortness of breath. She has a long history of COPD and is 2 L oxygen dependent. Upon arrival, she is percent pulse ox on her 2 L. Her lungs are clear to auscultation bilaterally. She states that she was sent for concerns for respiratory difficulty, but she does not exhibit any acute respiratory distress. No wheezing on exam, no accessory muscle use. She does not have a fever and does not complain of chest pain. She has for some buddy crackers and 8. Labs showed that she had a slight leukocytosis of 12,000, but she does take chronic prednisone 15 mg daily Chemistries were reviewed and they were her baseline. Chest x-ray does show this chronic left lower lobe haziness. Patient did get a respiratory treatment when she arrived and now she is requesting to go home EKG is unchanged from prior. She is normal sinus rhythm, 84 bpm with some PACs imp chronic COPD,dementia <Camila Patel - Last Filed: 02/07/17 01:22> *DC/Admit/Observation/Transfer <Camila Patel - Last Filed: 02/07/17 01:22> - Attestations Scribe Attestion: 02/07/17 00:11 Documentation prepared by Lima Teixeira, acting as diagnostic medical sonographer for Camila Patel MD. <Lima Teixeira - Last Filed: 02/07/17 01:47> Diagnosis at time of Disposition: Pleural effusion COPD (chronic obstructive pulmonary disease) Qualifiers: COPD type: unspecified COPD Qualified Code(s): J44.9 - Chronic obstructive pulmonary disease, unspecified Dementia Qualifiers: Dementia type: unspecified type Dementia behavioral disturbance: without behavioral disturbance Qualified Code(s): F03.90 - Unspecified dementia without behavioral disturbance - Discharge Dispostion Disposition: HOME Condition at time of disposition: Stable - Referrals Referrals: Christina Oakes MD [Primary Care Provider] - - Patient Instructions Printed Discharge Instructions: DI for Chronic Obstructive Pulmonary Disease Additional Instructions: please continue your medications
[2017-02-06] MEDS ORDERED: ALBUTEROL SO4 2.5/IPRATROPIUM 0.5 INH SOL 3 ML VIAL.NEB. NEB ONE (23:24)
[2017-02-06] MEDS ORDERED: methylPREDNISolone NA SUCC 125 MG/2 ML VIAL IVPB ONE (23:24)
[2017-02-06] MEDS ORDERED: methylPREDNISolone NA SUCC 125 MG/2 ML VIAL ONE (23:45)
[2017-02-06 23:56] VITALS: TEMP 98.4; BMI 24.5
[2017-02-07 00:04] LABS: BASOPHIL 0.1 % (0-2.0); EOSINOPHIL 0.2 % (0-4.5); MCH 32.5 pg (25.7-33.7); MCHC 33.2 g/dl (32.0-36.0); MEAN PLT VOLUME 8.6 fl (7.5-11.1); NEUTROPHILS 78.9 % (42.8-82.8); PLATELET COUNT 223 K/MM3 (134-434); RDW 15.6 % (11.6-15.6)
[2017-02-07 00:16] LABS: INR 0.89 (0.82-1.09); PROTHROMBIN TIME (PATIENT) 9.8 SEC (9.98-11.88)
[2017-02-07 00:52] LABS: ALBUMIN 3.2 g/dl (3.4-5.0); ANION GAP 7 (8-16); CALCIUM 9.2 mg/dL (8.5-10.1); CO2 33 mmol/L (21-32); GLUCOSE,RANDOM 81 mg/dL (74-106)
[2017-02-07 00:56] LABS: ALK PHOS 63 U/L (45-117); BILIRUBIN,TOTAL 0.4 mg/dL (0.2-1.0); CREATININE 0.9 mg/dL (0.55-1.02); SGOT/AST 18 U/L (15-37); SGPT/ALT 32 U/L (12-78); TOT PROT 6.1 g/dl (6.4-8.2)
[2017-02-07 01:31] LABS: CPK 49 IU/L (26-192); TROPONIN I < 0.02 ng/ml (0.00-0.05)
[2017-02-07 01:54] VITALS: BP 134/82; PULSE 80
--- NOTE | 2017-02-07 13:44 | EKG ---
Test Reason : Blood Pressure : / mmHG Vent. Rate : 083 BPM Atrial Rate : 083 BPM P-R Int : 154 ms QRS Dur : 100 ms QT Int : 368 ms P-R-T Axes : 052 013 033 degrees QTc Int : 432 ms SINUS RHYTHM WITH OCCASIONAL ATRIAL ATRIAL PREMATURE BEATS NONSPECIFIC ST CHANGES WHEN COMPARED WITH ECG OF 27-JAN-2017 22:17, PREMATURE VENTRICULAR COMPLEXES ARE NO LONGER PRESENT ATRIAL PREMATURE BEATS ARE PRESENT REPEAT EKG IF CLINICALLY INDICATED Confirmed by WAQAR LOPEZ MD ([id number]) on 02/07/2017 1:44:00 PM Referred By: Confirmed By:WAQAR LOPEZ MD
== END 2017-02-07 02:04 | disposition home or self-care (01) ==
LOC: JER 23:04
PROC: 3E0333Z Introduction of Anti-inflammatory into Peripheral Vein, Percutaneous Approach (ICD-10-PCS; principal; 2017-02-06)
PROC: 3E0F7GC Introduction of Other Therapeutic Substance into Respiratory Tract, Via Natural or Artificial Opening (ICD-10-PCS; 2017-02-06)
DX: J90 Pleural effusion, not elsewhere classified (principal); I10 Essential (primary) hypertension; E78.5 Hyperlipidemia, unspecified; J44.9 Chronic obstructive pulmonary disease, unspecified; J45.909 Unspecified asthma, uncomplicated; C85.90 Non-Hodgkin lymphoma, unspecified, unspecified site; E03.9 Hypothyroidism, unspecified; F03.90 Unspecified dementia, unspecified severity, without behavioral disturbance, psychotic disturbance, mood disturbance, and anxiety; K21.9 Gastro-esophageal reflux disease without esophagitis; N32.89 Other specified disorders of bladder; F32.9 Major depressive disorder, single episode, unspecified; F41.9 Anxiety disorder, unspecified; Z79.84 Long term (current) use of oral hypoglycemic drugs; Z88.1 Allergy status to other antibiotic agents; Z99.81 Dependence on supplemental oxygen
CPT/HCPCS: 36415; 71010-TC; 80053; 84484; 85025; 85610; 93005; 93010; 94640; 96374; 99283-25

== ENCOUNTER 2017-02-27 22:16 | Emergency (ER) | payer OTHER ==
[2017-02-27 22:31] VITALS: BP 129/72; PULSE 88; TEMP 98.2; BMI 27.3
== END 2017-02-27 23:31 | disposition left against medical advice (07) ==
LOC: JER 22:16
DX: Z53.21 Procedure and treatment not carried out due to patient leaving prior to being seen by health care provider (principal)
CPT/HCPCS: 99281-25

== ENCOUNTER 2017-03-16 20:50 | Emergency (ER) | payer OTHER ==
--- NOTE | 2017-03-16 21:08 | PDOC ---
History of Present Illness - General History Source: Patient, Family (daughter) Exam Limitations: No Limitations - History of Present Illness Initial Comments: 03/16/17 22:07 The patient is a 86 year old female with significant past medical history of COPD/asthma on 2L O2 dependent, lymphoma, dementia, GERD, hypertension, hyperlipidemia, hypothyroidism, anemia, overactive bladder who presents to the ED from [facility] for SOB prior to arrival. As per daughter, at bedside, she was informed by the [facility] facility that patient was walking to the bathroom when she suddenly became short of breath. She states as per [facility] protocol, patient must be taken to the ER for further evaluation. Daughter reports patient has a long history of COPD and normally experiences exertional dyspnea. Patient denies lightheadedness, diaphoresis, chest pain, jaw pain, shoulder pain, arm pain, leg swelling, nausea, or vomiting. The patient denies fever, chills, cough, abdominal pain, and diarrhea. Allergies: levofloxacin Social History: Lives in [facility]. Former smoker (2 PPD, quit several years ago). No alcohol or drug use reported. Past Surgical History: Left lobectomy PCP: Dr. 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 <Kieran Garcia - Last Filed: 03/17/17 00:17> - Past Medical History Allergies/Adverse Reactions: Allergies Allergy/AdvReac Type Severity Reaction Status Date / Time levofloxacin [From Levaquin] AdvReac Unknown Itching Verified 03/16/17 21:29 Home Medications: Ambulatory Orders Aa/Hydrolyzed Collagen, Whey [Lps 15-30 Liquid] 30 ml PO DAILY 01/12/17 Acetaminophen [Tylenol] 650 mg PO QID PRN 01/12/17 Albuterol Sulfate [Proventil HFA Inhaler -] 1 - 2 inh PO QID 01/12/17 Alprazolam [Xanax] 0.25 mg PO TID 01/12/17 Aspirin [Children's Aspirin] 81 mg PO DAILY 01/12/17 Atorvastatin Ca [Lipitor] 10 mg PO HS 01/12/17 Calcium Carbonate/Vitamin D3 [Oyster Shell 500-Vit D3 200 Tb] 1 each PO BID Diltiazem Cd [Cardizem Cd -] 240 mg PO DAILY 01/12/17 Docusate Sodium 200 mg PO DAILY 01/12/17 Donepezil HCl [Aricept] 10 mg PO DAILY 01/12/17 Escitalopram Oxalate [Lexapro -] 10 mg PO DAILY 01/12/17 Gabapentin 300 mg PO BID 01/12/17 Levothyroxine [Synthroid -] 75 mcg PO DAILY 01/12/17 Loratadine [Allergy] 10 mg PO DAILY 01/12/17 Memantine HCl [Namenda -] 10 mg PO DAILY 01/12/17 Multivitamin with Iron [Daily Mabel with Iron] 1 each PO DAILY 01/12/17 Mycophenolate Mofetil [Cellcept] 500 mg PO DAILY 01/12/17 Olopatadine HCl [Pataday] 1 ml OP DAILY 01/12/17 Oxybutynin Chloride [Oxybutynin Chloride ER] 5 mg PO DAILY 01/12/17 Polyethylene Glycol 3350 [Miralax 119 gm Btl -] 17 gm PO DAILY 01/12/17 Sennosides [Senna] 17.2 mg PO HS 01/12/17 Prednisone 15 mg PO DAILY #20 tablet 01/16/17 Budesonide/Formeterol Fumarate [SYMBICORT 80/4.5mcg -] 2 puff IH BID #1 inhaler 01/17/17 Tiotropium Leeper [Spiriva] 18 mcg IH DAILY 03/16/17 Review of Systems - Review of Systems Able to Perform ROS?: Yes Comments:: 03/16/17 22:07 CONSTITUTIONAL: Absent: fever, chills, diaphoresis, generalized weakness, malaise, loss of appetite HEENT: Absent: rhinorrhea, nasal congestion, throat pain, throat swelling, difficulty swallowing, mouth swelling, ear pain, eye pain, visual Changes CARDIOVASCULAR: Absent: chest pain, syncope, palpitations, irregular heart rate, lightheadedness , peripheral edema RESPIRATORY: +shortness of breath, dyspnea with exertion Absent: cough, orthopnea, wheezing, stridor, hemoptysis GASTROINTESTINAL: Absent: abdominal pain, abdominal distension, nausea, vomiting, diarrhea, constipation, melena, hematochezia GENITOURINARY: Absent: dysuria, frequency, urgency, hesitancy, hematuria, flank pain, genital pain MUSCULOSKELETAL: Absent: myalgia, arthralgia, joint swelling SKIN: Absent: rash, itching, pallor NEUROLOGIC: Absent: headache, focal weakness or paresthesias, dizziness, unsteady gait, seizure, mental status changes, bladder or bowel incontinence <Suzanna Grey - Last Filed: 03/16/17 22:25> *Physical Exam - Vital Signs Last Vital Signs Temp Pulse Resp BP Pulse Ox 98.3 F 82 18 150/77 93 L 03/16/17 21:25 03/16/17 21:26 03/16/17 21:25 03/16/17 21:25 03/16/17 21:26 - Physical Exam Comments: 03/16/17 22:07 GENERAL: Well developed, well nourished. Awake and alert. No acute distress. HEENT: Normocephalic, atraumatic. PERRLA, EOMI. No conjunctival pallor. Sclera are non- icteric. Moist mucous membranes. Oropharynx is clear. NECK: Supple. Full ROM. No JVD. Carotid pulses 2+ and symmetric, without bruits. No thyromegaly. No lymphadenopathy. CARDIOVASCULAR: Regular rate and rhythm. 4/6 holosystolic murmur. No rubs or gallops. Distal pulses are 2+ and symmetric. PULMONARY: No evidence of respiratory distress. Currently on 2L of O2. Lungs clear to auscultation bilaterally. No wheezing, rales or rhonchi. ABDOMINAL: Soft. Non-tender. Non-distended. No rebound or guarding. No organomegaly. Normoactive bowel sounds. MUSCULOSKELETAL Normal range of motion at all joints. No bony deformities or tenderness. No CVA tenderness. EXTREMITIES: No cyanosis. No clubbing. No edema. No calf tenderness. SKIN: Warm and dry. Normal capillary refill. No rashes. No jaundice. NEUROLOGICAL: Alert, awake, appropriate. Cranial nerves 2-12 intact. No gross neurological deficits. <Suzanna Grey - Last Filed: 03/16/17 22:25> Heart Score/ECG Review - ECG Impressions Comment:: 03/16/17 22:25 NSR @90bpm Moderate voltage criteria for LVH, may be normal variant Borderline ECG No changes from 02/07/2017 <Suzanna Grey - Last Filed: 03/16/17 22:25> ED Treatment Course - LABORATORY CBC & Chemistry Diagram: 03/16/17 21:49 03/16/17 21:49 - ADDITIONAL ORDERS Additional order review: 03/16/17 21:49 RBC 3.61 MCV 94.0 MCHC 32.4 RDW 14.6 MPV 8.2 Neutrophils % 78.9 Lymphocytes % 12.7 Monocytes % 8.2 Eosinophils % 0.1 Basophils % 0.1 <Suzanna Grey - Last Filed: 03/16/17 22:25> - LABORATORY CBC & Chemistry Diagram: 03/16/17 21:49 03/16/17 21:49 <Kieran Garcia - Last Filed: 03/17/17 00:17> *DC/Admit/Observation/Transfer - Attestations Scribe Attestion: 03/16/17 22:09 Documentation prepared by Suzanna Grey, acting as biomedical engineer for Kieran Garcia MD/DO. <Suzanna Grey - Last Filed: 03/16/17 22:25> - Discharge Dispostion Admit: No - Attestations Physician Attestion: 03/16/17 21:08 <Kieran Garcia - Last Filed: 03/17/17 00:17> Diagnosis at time of Disposition: Chronic airway obstruction, mixed type - Discharge Dispostion Disposition: HOME Condition at time of disposition: Unchanged/Unknown - Patient Instructions Printed Discharge Instructions: DI for Chronic Obstructive Pulmonary Disease Additional Instructions: Mrs Velarde- So sorry that you are in this situation. Everything is stable/unchanged. I believe you can go back to the NH. Follow up with Dr. Harding. Return to us if worse or new symptoms occur. Best- Dr. Kieran Garcia
[2017-03-16 21:29] VITALS: BP 150/77; PULSE 82; TEMP 98.3; BMI 23.3
[2017-03-16 21:53] LABS: BASOPHIL 0.1 % (0-2.0); EOSINOPHIL 0.1 % (0-4.5); MCH 30.4 pg (25.7-33.7); MCHC 32.4 g/dl (32.0-36.0); MEAN PLT VOLUME 8.2 fl (7.5-11.1); NEUTROPHILS 78.9 % (42.8-82.8); PLATELET COUNT 283 K/MM3 (134-434); RDW 14.6 % (11.6-15.6); WHITE BLOOD COUNT 11.6 K/mm3 (4.0-10.0)
[2017-03-16 22:07] LABS: INR 0.88 (0.82-1.09); PROTHROMBIN TIME (PATIENT) 9.7 SEC (9.98-11.88)
[2017-03-16 22:20] LABS: ALBUMIN 3.1 g/dl (3.4-5.0); ANION GAP 7 (8-16); BILIRUBIN,TOTAL 0.2 mg/dL (0.2-1.0); CALCIUM 9.2 mg/dL (8.5-10.1); CO2 33 mmol/L (21-32); GLUCOSE,RANDOM 165 mg/dL (74-106); SGOT/AST 21 U/L (15-37); SGPT/ALT 31 U/L (12-78); TOT PROT 5.8 g/dl (6.4-8.2)
[2017-03-16 22:22] LABS: ALK PHOS 59 U/L (45-117)
[2017-03-16 22:23] LABS: CPK 71 IU/L (26-192); TROPONIN I < 0.02 ng/ml (0.00-0.05)
--- NOTE | 2017-03-17 09:40 | EKG ---
Test Reason : Blood Pressure : / mmHG Vent. Rate : 090 BPM Atrial Rate : 090 BPM P-R Int : 130 ms QRS Dur : 094 ms QT Int : 376 ms P-R-T Axes : 069 030 031 degrees QTc Int : 459 ms NORMAL SINUS RHYTHM MODERATE VOLTAGE CRITERIA FOR LVH, MAY BE NORMAL VARIANT INCOMPLETE RBBB WHEN COMPARED WITH ECG OF 07-FEB-2017 00:17, NO SIGNIFICANT CHANGE WAS FOUND Confirmed by OTONIEL MOORE MD ([id number]) on 03/17/2017 9:39:47 AM Referred By: Confirmed By:OTONIEL MOORE MD
== END 2017-03-17 02:09 ==
LOC: JER 20:50
DX: J44.9 Chronic obstructive pulmonary disease, unspecified (principal); Z87.891 Personal history of nicotine dependence; J45.909 Unspecified asthma, uncomplicated; Z99.81 Dependence on supplemental oxygen; I10 Essential (primary) hypertension; E03.9 Hypothyroidism, unspecified; F03.90 Unspecified dementia, unspecified severity, without behavioral disturbance, psychotic disturbance, mood disturbance, and anxiety; F41.8 Other specified anxiety disorders
CPT/HCPCS: 36415; 71010-TC; 80053; 83880; 84484; 85025; 85610; 93005; 93010; 99283-25

== ENCOUNTER → 2017-03-22 | Day surgery (SDC) | payer OTHER ==
--- NOTE | 2017-03-28 16:45 | PATH ---
Surgical Pathology Report Patient Name: SAM ATKINS [facility]. Rec. #: [id number] /Age/Gender: 1930 (Age: 86) / F Account: [id number] Location: Taken: 03/22/2017 Received: 03/22/2017 Reported: 03/28/2017 Physicians: Vasile Alfaro M.D. Specimen(s) Received RIGHT BREAST CORE BIOPSY 9:00, 10CM FN Clinical History Ultrasound findings: Suspicious History of non-Hodgkin's lymphoma Final Diagnosis Breast, right, 9:00, 10 cm fn, core biopsy: Marginal zone lymphoma. (See note) Microscopic description: Sections show several small fragments of clotted blood and lymphoid tissue. There is effacement of the normal lymph node architecture. There is a predominance of small atypical lymphocytes are present in a mostly diffuse pattern. In other areas, there is a vaguely nodular pattern with rare residual germinal centers. Immunohistochemical stains are performed with appropriate controls. Atypical lymphocytes are positive for CD20, PAX-5 and BCL-2. They are negative for CD10, BCL-6, CD5, CD43, Cyclin-D1 and LEF-1. A stain for CD3 highlights scattered small T-cells. Stains for CD10 and BCL-6 highlight rare clusters of cells representing residual disrupted germinal centers. Stains for CD21 and CD23 highlight the residual disrupted dendritic meshworks. A stain for CD-138 highlights scattered plasma cells. In-situ hybridization for [place] and Lambda light chains show the plasma cells to be polytypic. Note: This case was sent to [facility], [place], [place] for ancillary studies and consultation and the above diagnosis was rendered thereby Dr. Shadi Moran. See also complete [facility] report [id number]. Electronically Signed Hetal Farnsworth M.D. Gross Description Received in formalin labeled "right breast biopsy 9:00, 10cmfn," is a 1.9 x 1.5 x 0.3 cm aggregate of multiple zambrano-yellow, irregular to cylindrical portions of fibroadipose tissue. The formalin is filtered and the specimen is entirely submitted in one cassette. Time to formalin fixation: 2 minutes Total formalin fixation time: Approximately 7 hours. /03/22/201703/22/2017
== END | disposition home or self-care (01) ==
LOC: FRADUS-SUR 10:12
PROVIDERS: ATTEND Surgery Surgical Oncology
PROC: 0HBT3ZX Excision of Right Breast, Percutaneous Approach, Diagnostic (ICD-10-PCS; principal; 2017-03-22)
DX: D48.61 Neoplasm of uncertain behavior of right breast (principal)
CPT/HCPCS: 19083; 87899; 88305-TC; A4648; G0206-TC

== ENCOUNTER 2017-04-12 05:52 | Inpatient (IN) | payer OTHER ==
[2017-04-12 05:56] VITALS: BMI 24.1
--- NOTE | 2017-04-12 06:04 | PDOC ---
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 The patient does not remember falling and does not know why they sent her here this morning. She does not have any complaints of pain at this time. She denies headache, visual changes. Denies hip pain, leg pain. Denies chest pain. Endorses SOB, which she states is typical secondary to her history of COPD. HPI is limited secondary to dementia/ Alzheimers. Allergies: levofloxacin Social Hx: Former tobacco use. PCP: Dr. Christina Oakes <Fidelina Soto - Last Filed: 04/12/17 06:17> - General History Source: EMS <Miguel Kay - Last Filed: 04/13/17 19:35> - General Chief Complaint: Injury Stated Complaint: FALL Time Seen by Provider: 04/12/17 06:00 Past History <Fidelina Soto - Last Filed: 04/12/17 06:17> - Past Medical History Anemia: No Asthma: Yes Cancer: Yes CVA: No COPD: Yes CHF: No Dementia: Yes GI Disorders: Yes (GERD) Disorders: Yes (BLADDER DROP) HTN: Yes Hypercholesterolemia: Yes 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, anxiety) Thyroid Disease: Yes (hypothyroid) - Surgical History Lung Surgery: Yes - Immunization History Td Vaccination: (unknown) Immunization Up to Date: Yes - Suicide/Smoking/Psychosocial Hx Smoking Status: No Smoking History: Unknown if ever smoked Years of Tobacco Use: 40 Have you smoked in the past 12 months: No Number of Cigarettes Smoked Daily: 0 If you are a former smoker, when did you quit?: 45 years ago Cigars Per Day: 0 Information on smoking cessation initiated: No Hx Alcohol Use: No Drug/Substance Use Hx: No Substance Use Type: None Hx Substance Use Treatment: No <Miguel Kay - Last Filed: 04/13/17 19:35> - Past Medical History Allergies/Adverse Reactions: Allergies Allergy/AdvReac Type Severity Reaction Status Date / Time levofloxacin [From Levaquin] AdvReac Unknown Itching Verified 04/12/17 05:53 Home Medications: Ambulatory Orders Aa/Hydrolyzed Collagen, Whey [Lps 15-30 Liquid] 30 ml PO DAILY 01/12/17 Acetaminophen [Tylenol] 650 mg PO QID PRN 01/12/17 Albuterol Sulfate [Proventil HFA Inhaler -] 1 - 2 inh PO QID PRN 01/12/17 Alprazolam [Xanax] 0.25 mg PO TID 01/12/17 Aspirin [Children's Aspirin] 81 mg PO DAILY 01/12/17 Atorvastatin Ca [Lipitor] 10 mg PO HS 01/12/17 Calcium Carbonate/Vitamin D3 [Oyster Shell 500-Vit D3 200 Tb] 1 each PO BID Diltiazem Cd [Cardizem Cd -] 240 mg PO DAILY 01/12/17 Docusate Sodium 200 mg PO DAILY 01/12/17 Donepezil HCl [Aricept] 10 mg PO DAILY 01/12/17 Escitalopram Oxalate [Lexapro -] 10 mg PO DAILY 01/12/17 Gabapentin 300 mg PO BID 01/12/17 Levothyroxine [Synthroid -] 75 mcg PO DAILY 01/12/17 Loratadine [Allergy] 10 mg PO DAILY 01/12/17 Memantine HCl [Namenda -] 10 mg PO BID 01/12/17 Multivitamin with Iron [Daily Mabel with Iron] 1 each PO DAILY 01/12/17 Mycophenolate Mofetil [Cellcept] 500 mg PO DAILY 01/12/17 Olopatadine HCl [Pataday] 1 ml OU DAILY 01/12/17 Oxybutynin Chloride [Oxybutynin Chloride ER] 5 mg PO DAILY 01/12/17 Polyethylene Glycol 3350 [Miralax 119 gm Btl -] 17 gm PO DAILY 01/12/17 Sennosides [Senna] 17.2 mg PO HS 01/12/17 Prednisone 15 mg PO DAILY #20 tablet 01/16/17 Budesonide/Formeterol Fumarate [SYMBICORT 80/4.5mcg -] 2 puff IH BID #1 inhaler 01/17/17 Tiotropium [place] [Spiriva] 18 mcg IH DAILY 03/16/17 Review of Systems - Review of Systems Able to Perform ROS?: No (Dementia ) <Fidelina Soto - Last Filed: 04/12/17 06:17> *Physical Exam - Vital Signs Last Vital Signs Temp Pulse Resp BP Pulse Ox 99.0 F 118 H 16 158/98 92 L 04/12/17 05:54 04/12/17 05:54 04/12/17 05:54 04/12/17 05:54 04/12/17 05:54 - Physical Exam Comments: 04/12/17 06:15 GENERAL: Well developed, well nourished. Awake and alert. In no acute distress. HEENT: Normocephalic, atraumatic. No obvious signs of trauma. No racoon or jean baptiste signs. PERRLA, EOMI. No conjunctival pallor. Sclerae are non-icteric. Moist mucous membranes. Oropharynx is clear. NECK: Supple. Full ROM. No JVD. Carotid pulses 2+ and symmetric, without bruits. No thyromegaly. No lymphadenopathy. CARDIOVASCULAR: Regular rate and rhythm. No murmurs, rubs, or gallops. Distal pulses are 2+ and symmetric. PULMONARY: Decreased breath sounds bilaterally. Rhonchi on the right. No evidence of respiratory distress. ABDOMINAL: Soft. Non-tender. Non-distended. No rebound or guarding. No organomegaly. Normoactive bowel sounds. MUSCULOSKELETAL Negative pelvic rock. Normal range of motion at all joints. No bony deformities or tenderness. No CVA tenderness. EXTREMITIES: No cyanosis. No clubbing. No edema. No calf tenderness. SKIN: Warm and dry. Normal capillary refill. No rashes. No jaundice. NEUROLOGICAL: Alert, awake, appropriate. Cranial nerves 2-12 intact. No deficits to light touch and temperature in face, upper extremities and lower extremities. No motor deficits in the in face, upper extremities and lower extremities. Normoreflexic in the upper and lower extremities. Normal speech. Toes are downgoing bilaterally. Gait is normal without ataxia. PSYCHIATRIC: Cooperative. Good eye contact. Appropriate mood and affect. <RenogloFidelina - Last Filed: 04/12/17 06:17> - Vital Signs Last Vital Signs Temp Pulse Resp BP Pulse Ox 99.0 F 118 H 16 158/98 92 L 10/11/17 05:54 04/12/17 05:54 04/12/17 05:54 04/12/17 05:54 04/12/17 05:54 <Miguel Kay - Last Filed: 04/13/17 19:35> Heart Score/ECG Review #1 04/12/17 06:17 Sinus tachycardia with a rate of 116bpm <Fidelina Soto - Last Filed: 04/12/17 06:17> ED Treatment Course - LABORATORY CBC & Chemistry Diagram: 04/12/17 06:03 04/12/17 06:03 <Fidelina Soto - Last Filed: 04/12/17 06:17> - LABORATORY CBC & Chemistry Diagram: 04/13/17 06:25 04/13/17 06:25 <Miguel Kay - Last Filed: 04/13/17 19:35> Medical Decision Making - Medical Decision Making 04/13/17 19:34 Dr. Kay: The scribe's documentation has been prepared under my direction and personally reviewed by me in its entirery. I confirm that the note above accurately reflects all work, treatment, procedures, and medical decision making performed by me. <Miguel Kay - Last Filed: 04/13/17 19:35> *DC/Admit/Observation/Transfer - Attestations Scribe Attestion: 04/12/17 06:16 Documentation prepared by KATE Owens, acting as medical scientific officer for Miguel Kay MD.. <Fidelina Soto - Last Filed: 04/12/17 06:17> <Miguel Kay - Last Filed: 04/13/17 19:35> Diagnosis at time of Disposition: Left lower lobe pneumonia Qualifiers: Pneumonia type: due to unspecified organism Qualified Code(s): J18.1 - Lobar pneumonia, unspecified organism - Discharge Dispostion Condition at time of disposition: Stable - Referrals
[2017-04-12 06:20] LABS: BASOPHIL 0.2 % (0-2.0); EOSINOPHIL 0.3 % (0-4.5); MCH 29.2 pg (25.7-33.7); MCHC 31.9 g/dl (32.0-36.0); MEAN CELL VOLUME 91.4 fl (80-96); MEAN PLT VOLUME 8.6 fl (7.5-11.1); NEUTROPHILS 76.2 % (42.8-82.8); PLATELET COUNT 299 K/MM3 (134-434); RDW 15.1 % (11.6-15.6); WHITE BLOOD COUNT 13.6 K/mm3 (4.0-10.0)
[2017-04-12] MEDS ORDERED: ALBUTEROL SO4 2.5/IPRATROPIUM 0.5 INH SOL 3 ML VIAL.NEB. NEB ONE (06:57)
[2017-04-12] MEDS ORDERED: ALBUTEROL SO4 2.5/IPRATROPIUM 0.5 INH SOL 3 ML VIAL.NEB. NEB STA (06:57)
[2017-04-12 06:59] LABS: URINE APPEARANCE TURBID; URINE BILIRUBIN NEGATIVE (NEGATIVE); URINE BLOOD NEGATIVE (NEGATIVE); URINE COLOR YELLOW; URINE GLUCOSE (UA) NEGATIVE (NEGATIVE); URINE KETONE NEGATIVE (NEGATIVE); URINE NITRITE NEGATIVE (NEGATIVE); URINE PROTEIN NEGATIVE (NEGATIVE); URINE UROBILINOGEN NEGATIVE mg/dL (0.2-1.0)
[2017-04-12 07:14] LABS: INR 1.02 (0.82-1.09); PROTHROMBIN TIME (PATIENT) 11.2 SEC (9.98-11.88)
[2017-04-12 07:24] LABS: ALBUMIN 2.9 g/dl (3.4-5.0); ANION GAP 9 (8-16); CALCIUM 9.3 mg/dL (8.5-10.1); CO2 32 mmol/L (21-32); CREATININE 0.7 mg/dL (0.55-1.02); GLUCOSE,RANDOM 100 mg/dL (74-106); MAGNESIUM 2.5 mg/dL (1.8-2.4); SGOT/AST 21 U/L (15-37); SGPT/ALT 26 U/L (12-78)
[2017-04-12 07:27] LABS: VENOUS PH 7.31 (7.32-7.42)
[2017-04-12 07:28] LABS: VENOUS BLOOD GAS HCO3 29.9 meq/L (19-25)
[2017-04-12 07:30] LABS: ALK PHOS 69 U/L (45-117); BILIRUBIN,TOTAL 0.4 mg/dL (0.2-1.0); TOT PROT 6.5 g/dl (6.4-8.2)
[2017-04-12] MEDS ORDERED: PIPERACILLIN/TAZOB 3.375 GM 3.375 GM in DEXTROSE 5%-WATER - 50 ML IVPB ONE (08:35)
--- NOTE | 2017-04-12 08:36 | PDOC ---
*Physical Exam - Vital Signs Last Vital Signs Temp Pulse Resp BP Pulse Ox 99.0 F 103 H 20 135/71 96 04/12/17 05:54 04/12/17 07:38 04/12/17 07:38 04/12/17 07:38 04/12/17 07:38 ED Treatment Course - LABORATORY CBC & Chemistry Diagram: 04/12/17 06:03 04/12/17 06:03 - ADDITIONAL ORDERS Additional order review: Laboratory Results 04/12/17 04/12/17 04/12/17 06:14 06:05 06:03 PT with INR INR VBG pH 7.31 L POC VBG pCO2 61.2 H* D POC VBG pO2 35.5 Mixed VBG HCO3 29.9 H Sodium Potassium Chloride Carbon Dioxide Anion Gap BUN Creatinine Creat Clearance w eGFR Random Glucose Lactic Acid 1.1 Calcium Magnesium Total Bilirubin AST ALT Alkaline Phosphatase B-Natriuretic Peptide Total Protein Albumin Urine Color Yellow Urine Appearance Turbid Urine pH 7.0 Urine Protein Negative Urine Glucose (UA) Negative Urine Ketones Negative Urine Blood Negative Urine Nitrite Negative Urine Bilirubin Negative Urine Urobilinogen Negative 04/12/17 04/12/17 06:03 06:03 PT with INR 11.20 INR 1.02 VBG pH POC VBG pCO2 POC VBG pO2 Mixed VBG HCO3 Sodium 142 Potassium 3.4 L Chloride 101 Carbon Dioxide 32 Anion Gap 9 BUN 33 H Creatinine 0.7 D Creat Clearance w eGFR > 60 Random Glucose 100 D Lactic Acid Calcium 9.3 Magnesium 2.5 H Total Bilirubin 0.4 D AST 21 ALT 26 Alkaline Phosphatase 69 B-Natriuretic Peptide 157.71 Total Protein 6.5 Albumin 2.9 L Urine Color Urine Appearance Urine pH Urine Protein Urine Glucose (UA) Urine Ketones Urine Blood Urine Nitrite Urine Bilirubin Urine Urobilinogen 04/12/17 06:03 RBC 3.86 MCV 91.4 MCHC 31.9 L RDW 15.1 MPV 8.6 Neutrophils % 76.2 Lymphocytes % 9.2 D Monocytes % 14.1 H Eosinophils % 0.3 D Basophils % 0.2 - Medications Given in the ED: ED Medications Discontinued Medications Generic Name Dose Route Start Last Admin Trade Name Freq PRN Reason Stop Dose Admin Albuterol/Ipratropium 1 amp 04/12/17 06:57 04/12/17 07:01 Duoneb - NEB 04/12/17 06:58 1 amp ONCE STA Administration Medical Decision Making - Medical Decision Making 04/12/17 11:29 Pt endorsed to me by Dr. Kay at 7am. Found to have LLL pna. A pepe was apparently placed on arrival in ED, not medically necessary at this point, will DC. Will also add CTH, as patient was reportedly altered from her baseline and had a fall. No visible signs of trauma. On exam, she has diffuse rhonchi and an intermittent loose cough. Will give additional nebs for the COPD. She is on 2L O2 at home, review of prior chart shows O2Sats above 97% in past. Plan for admission for pna. *DC/Admit/Observation/Transfer Diagnosis at time of Disposition: Left lower lobe pneumonia Qualifiers: Pneumonia type: due to unspecified organism Qualified Code(s): J18.1 - Lobar pneumonia, unspecified organism - Discharge Dispostion Condition at time of disposition: Stable Admit: Yes - Referrals - Patient Instructions - Post Discharge Activity
[2017-04-12] MEDS: ALBUTEROL SO4 2.5/IPRATROPIUM 0.5 INH SOL 3 ML VIAL.NEB. NEB SCH ×2 (10:20→11:30)
--- NOTE | 2017-04-12 11:30 | HP ---
CHIEF COMPLAINT: fall, cough PCP: Dr. Oakes, [facility] [place] HISTORY OF PRESENT ILLNESS: 86 yr old woman BIBEMS from alf after sustaining a fall. Patient is an unreliable historian due to her dementia. Says she was brought here due to her trouble breathing. Alert, oriented to person/place/says it's : 2019/birthday. Denies chest pain/fever/n/v/abd pain, palpitations, sob, diarrhea/constipation , lightheadedness, changes in vision, headache. Chart reviewed for further information. as per EMS record she was found in the bathroom s/p fall in distress. ER course was notable for: (1) head ct negative for fracture/hemorrhage (2) cxy: possible infiltrate/atelectasis in LLB (3) pepe placed and will be discontinued PAST MEDICAL HISTORY: COPD on 2LPM nasal cannula continous, hx of malignancy, HTN, overactive bladder Allergies levofloxacin [From Levaquin] Adverse Reaction (Unknown, Verified 04/12/17 05:53) Itching HOME MEDICATIONS: Home Medications Medication Instructions Recorded Aa/Hydrolyzed Collagen, Whey [Lps 30 ml PO DAILY 01/12/17 15-30 Liquid] Acetaminophen [Tylenol] 650 mg PO QID PRN 01/12/17 Albuterol Sulfate [Proventil HFA 1 - 2 inh PO QID 01/12/17 Inhaler -] Alprazolam [Xanax] 0.25 mg PO TID 01/12/17 Aspirin [Children's Aspirin] 81 mg PO DAILY 01/12/17 Atorvastatin Ca [Lipitor] 10 mg PO HS 01/12/17 Calcium Carbonate/Vitamin D3 1 each PO BID 01/12/17 [Oyster Shell 500-Vit D3 200 Tb] Diltiazem Cd [Cardizem Cd -] 240 mg PO DAILY 01/12/17 Docusate Sodium 200 mg PO DAILY 01/12/17 Donepezil HCl [Aricept] 10 mg PO DAILY 01/12/17 Escitalopram Oxalate [Lexapro -] 10 mg PO DAILY 01/12/17 Gabapentin 300 mg PO BID 01/12/17 Levothyroxine [Synthroid -] 75 mcg PO DAILY 01/12/17 Loratadine [Allergy] 10 mg PO DAILY 01/12/17 Memantine HCl [Namenda -] 10 mg PO BID 01/12/17 Multivitamin with Iron [Daily Mabel 1 each PO DAILY 01/12/17 with Iron] Mycophenolate Mofetil [Cellcept] 500 mg PO DAILY 01/12/17 Olopatadine HCl [Pataday] 1 ml OP DAILY 01/12/17 Oxybutynin Chloride [Oxybutynin 5 mg PO DAILY 01/12/17 Chloride ER] Polyethylene Glycol 3350 [Miralax 17 gm PO DAILY 01/12/17 119 gm Btl -] Sennosides [Senna] 17.2 mg PO HS 01/12/17 Prednisone 15 mg PO DAILY #20 tablet 01/16/17 Budesonide/Formeterol Fumarate 2 puff IH BID #1 inhaler 01/17/17 [SYMBICORT 80/4.5mcg -] Tiotropium [place] [Spiriva] 18 mcg IH DAILY 03/16/17 PHYSICAL EXAMINATION Vital Signs - 24 hr 04/12/17 04/12/17 04/12/17 05:54 07:10 07:38 Temperature 99.0 F Pulse Rate 118 H Pulse Rate [ 103 H Right Apical] Respiratory 16 20 Rate Blood Pressure 158/98 Blood Pressure 135/71 [Right Arm] O2 Sat by Pulse 92 L 90 L 96 Oximetry (%) 04/12/17 04/12/17 08:30 10:00 Temperature 98.9 F Pulse Rate Pulse Rate [ 110 H Right Apical] Respiratory 20 Rate Blood Pressure Blood Pressure 152/85 [Right Arm] O2 Sat by Pulse 90 L 96 Oximetry (%) GENERAL: Awake, alert, and oriented x2, in no acute distress. HEAD: Normal with no signs of trauma. no frontal or maxillary sinus tenderness b /l EYES: Pupils equal, round and reactive to light, extraocular movements intact, sclera anicteric, conjunctiva clear. No lid lag. EARS, NOSE, THROAT: no rhinorrhea, oropharynx clear without exudates/erythema. Moist mucous membranes. NECK: Normal range of motion, supple without lymphadenopathy, JVD, or masses. LUNGS: Breath sounds b/l diffuse + crackles/rhonchi with scattered crepitus on ventimask. No accessory muscle use. HEART: Regular rate and rhythm, normal S1 and S2 without murmur, rub or gallop. ABDOMEN: Soft, nontender, not distended, normoactive bowel sounds, no guarding, no rebound LLQ with extension - nontender/not herniated/no discrete mass palpable. MUSCULOSKELETAL: No bony deformities or tenderness. No CVA tenderness. UPPER EXTREMITIES: 2+ radial pulses, warm, well-perfused. No cyanosis. No clubbing. No peripheral edema. LOWER EXTREMITIES: 2+ dp pulses, warm, well-perfused. No calf tenderness. +1 peripheral edema in right ankle, no edema in left foot/leg NEUROLOGICAL: Normal speech. facial symmetry, 4/5 hand jumbo operator b/l. 3/5 b/l hip extension PSYCHIATRIC: Cooperative. Good eye contact. Appropriate mood and affect. SKIN: Warm, dry, normal turgor, no rashes or lesions noted, normal capillary refill. Laboratory Results - last 24 hr 04/12/17 04/12/17 04/12/17 06:03 06:03 06:03 WBC 13.6 H RBC 3.86 Hgb 11.3 Hct 35.3 MCV 91.4 MCH 29.2 MCHC 31.9 L RDW 15.1 Plt Count 299 MPV 8.6 Neutrophils % 76.2 Lymphocytes % 9.2 D Monocytes % 14.1 H Eosinophils % 0.3 D Basophils % 0.2 PT with INR 11.20 INR 1.02 VBG pH POC VBG pCO2 POC VBG pO2 Mixed VBG HCO3 Sodium 142 Potassium 3.4 L Chloride 101 Carbon Dioxide 32 Anion Gap 9 BUN 33 H Creatinine 0.7 D Creat Clearance w eGFR > 60 Random Glucose 100 D Lactic Acid Calcium 9.3 Magnesium 2.5 H Total Bilirubin 0.4 D AST 21 ALT 26 Alkaline Phosphatase 69 B-Natriuretic Peptide 157.71 Total Protein 6.5 Albumin 2.9 L Urine Color Urine Appearance Urine pH Urine Protein Urine Glucose (UA) Urine Ketones Urine Blood Urine Nitrite Urine Bilirubin Urine Urobilinogen 04/12/17 04/12/17 04/12/17 06:03 06:05 06:14 WBC RBC Hgb Hct MCV MCH MCHC RDW Plt Count MPV Neutrophils % Lymphocytes % Monocytes % Eosinophils % Basophils % PT with INR INR VBG pH 7.31 L POC VBG pCO2 61.2 H* D POC VBG pO2 35.5 Mixed VBG HCO3 29.9 H Sodium Potassium Chloride Carbon Dioxide Anion Gap BUN Creatinine Creat Clearance w eGFR Random Glucose Lactic Acid 1.1 Calcium Magnesium Total Bilirubin AST ALT Alkaline Phosphatase B-Natriuretic Peptide Total Protein Albumin Urine Color Yellow Urine Appearance Turbid Urine pH 7.0 Urine Protein Negative Urine Glucose (UA) Negative Urine Ketones Negative Urine Blood Negative Urine Nitrite Negative Urine Bilirubin Negative Urine Urobilinogen Negative Active Medications Acetaminophen (Tylenol -) 650 mg PO Q4H PRN PRN Reason: FEVER OR PAIN Albuterol/Ipratropium (Duoneb -) 1 amp NEB Q4H PRN PRN Reason: SHORTNESS OF BREATH Alprazolam (Xanax -) 0.25 mg PO TID [facility] Aspirin (Asa -) 81 mg PO DAILY [facility] Atorvastatin Calcium (Lipitor -) 10 mg PO HS [facility] Budesonide/Formoterol Fumarate (Symbicort 80/4.5mcg -) 2 puff IH BID [facility] Calcium Carbonate/Cholecalciferol (Os-Juan 500+D -) 1 tab PO BID [facility] Diltiazem HCl (Cardizem Cd -) 240 mg PO DAILY [facility] Docusate Sodium (Colace -) 200 mg PO DAILY [facility] Donepezil HCl (Aricept -) 10 mg PO DAILY [facility] Enoxaparin Sodium (Lovenox -) 40 mg SQ DAILY [facility] Last Admin: 04/12/17 12:17 Dose: 40 mg Escitalopram Oxalate (Lexapro -) 10 mg PO DAILY [facility] Gabapentin (Neurontin -) 300 mg PO BID [facility] Guaifenesin (Mucinex -) 600 mg PO BID [facility] Sodium Chloride (Normal Saline -) 1,000 mls @ 100 mls/hr IV ASDIR [facility] Levothyroxine Sodium (Synthroid -) 75 mcg PO DAILY [facility] Loratadine (Claritin -) 10 mg PO DAILY [facility] Memantine (Namenda -) 10 mg PO BID [facility] Mycophenolate Mofetil (Cellcept -) 500 mg PO DAILY [facility] Non-Formulary Medication (Aa/Hydrolyzed Collagen, Whey [Lps 15-30 Liquid]) 30 ml PO DAILY [facility] Non-Formulary Medication (Multivitamin With Iron [Daily Mabel With Iron]) 1 each PO DAILY [facility] Non-Formulary Medication (Olopatadine Hcl [Pataday]) 1 ml OU DAILY [facility] Non-Formulary Medication (Oxybutynin Chloride [Oxybutynin Chloride Er]) 5 mg PO DAILY [facility] Polyethylene Glycol (Miralax (For Daily Use) -) 17 gm PO DAILY [facility] Prednisone (Deltasone -) 15 mg PO DAILY [facility] Senna (Senna -) tab PO HS [facility] Tiotropium Semora (Spiriva -) puff IH DAILY [facility] Vancomycin HCl (Vancomycin (Pre-Docked)) 1,000 mg IVPB ONCE ONE PRN Reason: Protocol Stop: 04/12/17 15:35 ASSESSMENT/PLAN: 86 yr old woman with multiple co-morbidities s/p unwitnessed fall in alf admitted for HCAP pneumonia. #Sepsis (fever, source, tachycardia, hypoxia) in immunocomprised patient from alf - broad spec coverage with IV zosyn, ID consult with Dr. Whitten - tyelonol po for fevers - r/o legionella/strep ur ag, influenza swab #COPD - maintain o2 sat 88-92%, titrate oxygen as needed - continuous pulse ox monitoring - prednisone 15mg daily, symbicort, spiriva, loratadine, duonebs prn - Dr. Harding consulted #HTN - cardizem, oxybutinin #CAD - lipitor #Hypothyroidism - levothyroxine #Yoly's granulomatosis - cellcept #DVT prophylaxis: lovenox #Diet: Na+ controlled Visit type - Emergency Visit Emergency Visit: Yes ED Registration Date: 04/12/17 Care time: The patient presented to the Emergency Department on the above date and was hospitalized for further evaluation of their emergent condition. - New Patient This patient is new to me today: Yes Date on this admission: 04/12/17 - Critical Care Critical Care patient: No
[2017-04-12] MEDS ORDERED: POTASSIUM CHLORIDE ORAL LIQUID 20 MEQ/15 ML PO ONE (11:49)
[2017-04-12] MEDS ORDERED: ENOXAPARIN NA (PORCINE) 40 MG/0.4 ML DISP.SYRIN SQ SCH (12:00)
--- NOTE | 2017-04-12 12:00 | EKG ---
Test Reason : Blood Pressure : / mmHG Vent. Rate : 116 BPM Atrial Rate : 116 BPM P-R Int : 166 ms QRS Dur : 098 ms QT Int : 310 ms P-R-T Axes : 052 046 -06 degrees QTc Int : 430 ms SINUS TACHYCARDIA POSSIBLE LEFT ATRIAL ENLARGEMENT LEFT VENTRICULAR HYPERTROPHY ABNORMAL ECG WHEN COMPARED WITH ECG OF 16-MAR-2017 21:41, NONSPECIFIC T WAVE ABNORMALITY, WORSE IN INFERIOR LEADS Confirmed by BRAYAN SHIRLEY, SIS ([id number]) on 04/12/2017 11:59:58 AM Referred By: Confirmed By:SIS SCHMIDT MD
[2017-04-12] MEDS ORDERED: ENOXAPARIN NA (PORCINE) 40 MG/0.4 ML DISP.SYRIN SQ ONE (12:08)
--- NOTE | 2017-04-12 12:21 | PN ---
Teaching Attending Note Name of Resident: Wander Arias ATTENDING PHYSICIAN STATEMENT I saw and evaluated the patient. I reviewed the resident's note and discussed the case with the resident. I agree with the resident's findings and plan as documented. SUBJECTIVE: Comfortable with no acute distress. No nausea or vomiting. OBJECTIVE: Vital Signs Temperature 98.2 F 04/12/17 11:56 Pulse Rate 105 H 04/12/17 11:56 Respiratory Rate 20 04/12/17 11:56 Blood Pressure 136/72 04/12/17 11:56 O2 Sat by Pulse Oximetry (%) 96 04/12/17 11:56 CBCD WBC 13.6 K/mm3 (4.0-10.0) H 04/12/17 06:03 RBC 3.86 M/mm3 (3.60-5.2) 04/12/17 06:03 Hgb 11.3 GM/dL (10.7-15.3) 04/12/17 06:03 Hct 35.3 % (32.4-45.2) 04/12/17 06:03 MCV 91.4 fl (80-96) 04/12/17 06:03 MCHC 31.9 g/dl (32.0-36.0) L 04/12/17 06:03 RDW 15.1 % (11.6-15.6) 04/12/17 06:03 Plt Count 299 K/MM3 (134-434) 04/12/17 06:03 MPV 8.6 fl (7.5-11.1) 04/12/17 06:03 CMP Sodium 142 mmol/L (136-145) 04/12/17 06:03 Potassium 3.4 mmol/L (3.5-5.1) L 04/12/17 06:03 Chloride 101 mmol/L (98-107) 04/12/17 06:03 Carbon Dioxide 32 mmol/L (21-32) 04/12/17 06:03 Anion Gap 9 (8-16) 04/12/17 06:03 BUN 33 mg/dL (7-18) H 04/12/17 06:03 Creatinine 0.7 mg/dL (0.55-1.02) D 04/12/17 06:03 Creat Clearance w eGFR > 60 (>60) 04/12/17 06:03 Random Glucose 100 mg/dL (74-106) D 04/12/17 06:03 Calcium 9.3 mg/dL (8.5-10.1) 04/12/17 06:03 Total Bilirubin 0.4 mg/dL (0.2-1.0) D 04/12/17 06:03 AST 21 U/L (15-37) 04/12/17 06:03 ALT 26 U/L (12-78) 04/12/17 06:03 Alkaline Phosphatase 69 U/L (45-117) 04/12/17 06:03 Total Protein 6.5 g/dl (6.4-8.2) 04/12/17 06:03 Albumin 2.9 g/dl (3.4-5.0) L 04/12/17 06:03 Current Medications Generic Name Dose Route Start Last Admin Trade Name Boomq PRN Reason Stop Dose Admin Enoxaparin Sodium 40 mg 04/12/17 12:00 04/12/17 12:17 Lovenox - SQ 40 mg DAILY [facility] Administration Home Medications Medication Instructions Recorded Aa/Hydrolyzed Collagen, Whey [Lps 30 ml PO DAILY 01/12/17 15-30 Liquid] Acetaminophen [Tylenol] 650 mg PO QID PRN 01/12/17 Albuterol Sulfate [Proventil HFA 1 - 2 inh PO QID 01/12/17 Inhaler -] Alprazolam [Xanax] 0.25 mg PO TID 01/12/17 Aspirin [Children's Aspirin] 81 mg PO DAILY 01/12/17 Atorvastatin Ca [Lipitor] 10 mg PO HS 01/12/17 Calcium Carbonate/Vitamin D3 1 each PO BID 01/12/17 [Oyster Shell 500-Vit D3 200 Tb] Diltiazem Cd [Cardizem Cd -] 240 mg PO DAILY 01/12/17 Docusate Sodium 200 mg PO DAILY 01/12/17 Donepezil HCl [Aricept] 10 mg PO DAILY 01/12/17 Escitalopram Oxalate [Lexapro -] 10 mg PO DAILY 01/12/17 Gabapentin 300 mg PO BID 01/12/17 Levothyroxine [Synthroid -] 75 mcg PO DAILY 01/12/17 Loratadine [Allergy] 10 mg PO DAILY 01/12/17 Memantine HCl [Namenda -] 10 mg PO BID 01/12/17 Multivitamin with Iron [Daily Mabel 1 each PO DAILY 01/12/17 with Iron] Mycophenolate Mofetil [Cellcept] 500 mg PO DAILY 01/12/17 Olopatadine HCl [Pataday] 1 ml OP DAILY 01/12/17 Oxybutynin Chloride [Oxybutynin 5 mg PO DAILY 01/12/17 Chloride ER] Polyethylene Glycol 3350 [Miralax 17 gm PO DAILY 01/12/17 119 gm Btl -] Sennosides [Senna] 17.2 mg PO HS 01/12/17 Prednisone 15 mg PO DAILY #20 tablet 01/16/17 Budesonide/Formeterol Fumarate 2 puff IH BID #1 inhaler 01/17/17 [SYMBICORT 80/4.5mcg -] Tiotropium [place] [Spiriva] 18 mcg IH DAILY 03/16/17 PE: per resident's note; chest: Rhochi BL ASSESSMENT AND PLAN: Patient is a 86F w/ hx of CAD, COPD/asthma on home O2, Alzheimer's dementia, pulmonary lymphoma s/p lobectomy, HTN, HLD, GERD, hypothyroidism, yoly's granulomatosis on prednsione and mycophenalate mofetil, anxiety, depression, and overactive bladder came in from [facility] who presented with lightheadedness leading to a fall, and was found to have leukocytosis, and CXR findings showing left lung infiltrates, admitted for sepsis, Hcap. #Sepsis due to Hcap ,ID on board, Dr. Sidhu, f/u recs, Pulmonary on board, Dr. Harding, f/u Bcx, sputum cx, Urine legionella and strep pneumo, flu swab s/p one dose of vancomycin , continue zosyn, duonebs q4h PRN, APAP for fever/ pain, O2 via NC (88%-92%), trend wbc, temps, continuous pulse oximetry # HCAP on IV antibiotic continue , Pulmonary on the case #Fall possible due to presyncope in setting of sepsis, hip XR negative for acute fracture, CT head negative for acute brain bleed, fall precautions #hypokalemia replet #CAD continue ASA #Alzheimer dementia continue donepezil #HTN continue cardizem #HLD continue lipitor #Hypothyroidism continue synthroid #Overactive Bladder continue oxybutynin #Yoly's granulomatosis continue prednisone and mycophenalate mofetil #Anxiety/Depression continue xanax and lexapro #GERD zantac #Constipation continue senna, colace, and miralax DVT px: lovenox 40 Pt is DNR
[2017-04-12 13:42] LABS: URINE LEUK ESTERASE Negative (NEGATIVE)
--- NOTE | 2017-04-12 14:41 | CON.PULM ---
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 She is well known by our service from multiple inpatient and outpatient admissions. Presently, seen in ER appears short of breath and has fever. She is an unreliable historian due to underlying dementia. 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 Cardio/Vascular: Yes: Pulmonary Hypertension, HTN, Hyperlipdemia Pulmonary: Yes: COPD, O2 Dependent, Other (thoracotomy due to mass) Hepatobiliary: No: Cirrhosis Heme/Onc: Yes: Anemia Infectious Disease: No: AIDS Psych: Yes: Anxiety, Panic Musculoskeletal: Yes: Other (h/o of foot drop) Rheumatology: Yes: Vasculitis - Past Surgical History Past Surgical History: Yes: Thoracotomy - Alcohol/Substance Use Hx Alcohol Use: No - Smoking History Smoking history: Former smoker Have you smoked in the past 12 months: No Aproximately how many cigarettes per day: 0 If you are a former smoker, when did you quit?: 45 years ago - Social History Usual Living Arrangement: Assisted Living ADL: Support Services Place of : [facility] History of Recent Travel: No Home Medications - Allergies Allergies/Adverse Reactions: Allergies Allergy/AdvReac Type Severity Reaction Status Date / Time levofloxacin [From Levaquin] AdvReac Unknown Itching Verified 04/12/17 05:53 - Home Medications Home Medications: Ambulatory Orders Aa/Hydrolyzed Collagen, Whey [Lps 15-30 Liquid] 30 ml PO DAILY 01/12/17 Acetaminophen [Tylenol] 650 mg PO QID PRN 01/12/17 Albuterol Sulfate [Proventil HFA Inhaler -] 1 - 2 inh PO QID PRN 01/12/17 Alprazolam [Xanax] 0.25 mg PO TID 01/12/17 Aspirin [Children's Aspirin] 81 mg PO DAILY 01/12/17 Atorvastatin Ca [Lipitor] 10 mg PO HS 01/12/17 Calcium Carbonate/Vitamin D3 [Oyster Shell 500-Vit D3 200 Tb] 1 each PO BID Diltiazem Cd [Cardizem Cd -] 240 mg PO DAILY 01/12/17 Docusate Sodium 200 mg PO DAILY 01/12/17 Donepezil HCl [Aricept] 10 mg PO DAILY 01/12/17 Escitalopram Oxalate [Lexapro -] 10 mg PO DAILY 01/12/17 Gabapentin 300 mg PO BID 01/12/17 Levothyroxine [Synthroid -] 75 mcg PO DAILY 01/12/17 Loratadine [Allergy] 10 mg PO DAILY 01/12/17 Memantine HCl [Namenda -] 10 mg PO BID 01/12/17 Multivitamin with Iron [Daily Mabel with Iron] 1 each PO DAILY 01/12/17 Mycophenolate Mofetil [Cellcept] 500 mg PO DAILY 01/12/17 Olopatadine HCl [Pataday] 1 ml OU DAILY 01/12/17 Oxybutynin Chloride [Oxybutynin Chloride ER] 5 mg PO DAILY 01/12/17 Polyethylene Glycol 3350 [Miralax 119 gm Btl -] 17 gm PO DAILY 01/12/17 Sennosides [Senna] 17.2 mg PO HS 01/12/17 Prednisone 15 mg PO DAILY #20 tablet 01/16/17 Budesonide/Formeterol Fumarate [SYMBICORT 80/4.5mcg -] 2 puff IH BID #1 inhaler 01/17/17 Tiotropium [place] [Spiriva] 18 mcg IH DAILY 03/16/17 Family Disease History - Family Disease History Family Disease History: Heart Disease: Father, Sister Review of Systems Unable to obtain ROS, reason: unable to obtain Physical Exam Vital Sings: Vital Signs Temperature 100.9 F H 04/12/17 13:57 Pulse Rate 105 H 04/12/17 11:56 Respiratory Rate 20 04/12/17 11:56 Blood Pressure 136/72 04/12/17 11:56 O2 Sat by Pulse Oximetry (%) 96 04/12/17 11:56 Constitutional: Yes: Anxious, Mild Distress, Thin Eyes: Yes: Conjunctiva Clear HENT: Yes: Normocephalic Neck: Yes: Trachea Midline Cardiovascular: Yes: Tachycardia, S1, S2 Respiratory: Yes: Rhonchi Gastrointestinal: Yes: Soft Edema: No Labs: ALL LABS REVIEWED Imaging - Results Chest X-ray: Report Reviewed, Image Reviewed EKG: Report Reviewed, Image Reviewed Problem List - Problems (1) Anxiety Code(s): F41.9 - ANXIETY DISORDER, UNSPECIFIED (2) Acute exacerbation of COPD with asthma Code(s): J44.1 - CHRONIC OBSTRUCTIVE PULMONARY DISEASE W (ACUTE) EXACERBATION J45.901 - UNSPECIFIED ASTHMA WITH (ACUTE) EXACERBATION (3) COPD with acute exacerbation Code(s): J44.1 - CHRONIC OBSTRUCTIVE PULMONARY DISEASE W (ACUTE) EXACERBATION (4) Chronic bronchitis with acute exacerbation Code(s): J20.9 - ACUTE BRONCHITIS, UNSPECIFIED J42 - UNSPECIFIED CHRONIC BRONCHITIS (5) Coughing Code(s): R05 - COUGH Assessment/Plan O2 SUPPLEMENTATION PANCULTURE IV FLUIDS NEEDED EMPIRIC ANTIBIOTIC COVERAGE TO INCLUDE FACILITY ACQUIRED PATHOGENS BRONCHODILATORS/ DVT/PUD PROPHYLAXSIS WILL FOLLOW THANK YOU FOR THE CONSULT David FITZPATRICK MD
[2017-04-12] MEDS ORDERED: VANCOMYCIN 1 GRAM (PRE-DOCKED) 1,000 MG/250 ML BAG IVPB ONE (15:34)
--- NOTE | 2017-04-12 15:43 | HP ---
CHIEF COMPLAINT: fall PCP: Dr. 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 Per pt, she was in her USOH until this morning when she was sitting with her friends, got up to use her walker, felt lightheaded, and fell down on her buttocks. She denies LOC, any head or other body part trauma, and leg weakness. She denies worsening SOB, chest pain, abdominal pain, n/v/d/c , urinary symptoms other than overactive bladder, and preceding viral symptoms. She endorses a productive cough of clear sputum that she reports is chronic. 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, anxiety, depression, and overactive bladder PAST SURGICAL HISTORY: L lung lobectomy Social History: Smoking: former smoker, smoked for 40 years, quit 45 years ago Alcohol: none Drugs: none Family History: Allergies levofloxacin [From Levaquin] Adverse Reaction (Unknown, Verified 04/12/17 05:53) Itching HOME MEDICATIONS: Home Medications Medication Instructions Recorded Aa/Hydrolyzed Collagen, Whey [Lps 30 ml PO DAILY 01/12/17 15-30 Liquid] Acetaminophen [Tylenol] 650 mg PO QID PRN 01/12/17 Albuterol Sulfate [Proventil HFA 1 - 2 inh PO QID PRN 01/12/17 Inhaler -] Alprazolam [Xanax] 0.25 mg PO TID 01/12/17 Aspirin [Children's Aspirin] 81 mg PO DAILY 01/12/17 Atorvastatin Ca [Lipitor] 10 mg PO HS 01/12/17 Calcium Carbonate/Vitamin D3 1 each PO BID 01/12/17 [Oyster Shell 500-Vit D3 200 Tb] Diltiazem Cd [Cardizem Cd -] 240 mg PO DAILY 01/12/17 Docusate Sodium 200 mg PO DAILY 01/12/17 Donepezil HCl [Aricept] 10 mg PO DAILY 01/12/17 Escitalopram Oxalate [Lexapro -] 10 mg PO DAILY 01/12/17 Gabapentin 300 mg PO BID 01/12/17 Levothyroxine [Synthroid -] 75 mcg PO DAILY 01/12/17 Loratadine [Allergy] 10 mg PO DAILY 01/12/17 Memantine HCl [Namenda -] 10 mg PO BID 01/12/17 Multivitamin with Iron [Daily Mabel 1 each PO DAILY 01/12/17 with Iron] Mycophenolate Mofetil [Cellcept] 500 mg PO DAILY 01/12/17 Olopatadine HCl [Pataday] 1 ml OU DAILY 01/12/17 Oxybutynin Chloride [Oxybutynin 5 mg PO DAILY 01/12/17 Chloride ER] Polyethylene Glycol 3350 [Miralax 17 gm PO DAILY 01/12/17 119 gm Btl -] Sennosides [Senna] 17.2 mg PO HS 01/12/17 Prednisone 15 mg PO DAILY #20 tablet 01/16/17 Budesonide/Formeterol Fumarate 2 puff IH BID #1 inhaler 01/17/17 [SYMBICORT 80/4.5mcg -] Tiotropium [place] [Spiriva] 18 mcg IH DAILY 03/16/17 REVIEW OF SYSTEMS CONSTITUTIONAL: Absent: fever, chills, diaphoresis, generalized weakness, malaise, loss of appetite, weight change HEENT: Absent: rhinorrhea, nasal congestion, throat pain, throat swelling, difficulty swallowing, mouth swelling, ear pain, eye pain, visual changes CARDIOVASCULAR: Absent: chest pain, syncope, palpitations, irregular heart rate, peripheral edema Present: lightheadedness, RESPIRATORY: Absent: shortness of breath, dyspnea with exertion, orthopnea, wheezing, stridor , hemoptysis Present: cough GASTROINTESTINAL: Absent: abdominal pain, abdominal distension, nausea, vomiting, diarrhea, constipation, melena, hematochezia GENITOURINARY: Absent: dysuria, frequency, hesitancy, hematuria, flank pain, genital pain Present: overactive bladder MUSCULOSKELETAL: Absent: myalgia, arthralgia, joint swelling, back pain, neck pain SKIN: Absent: rash, itching, pallor HEMATOLOGIC/IMMUNOLOGIC: Absent: easy bleeding, easy bruising, lymphadenopathy, frequent infections ENDOCRINE: Absent: unexplained weight gain, unexplained weight loss, heat intolerance, cold intolerance NEUROLOGIC: Absent: headache, focal weakness or paresthesias, unsteady gait, seizure, mental status changes, bladder or bowel incontinence Present: lightheadedness PSYCHIATRIC: Absent: anxiety, depression, suicidal or homicidal ideation, hallucinations. PHYSICAL EXAMINATION Vital Signs - 24 hr 04/12/17 04/12/17 11:56 13:57 Temperature 98.3 F 100.9 F H Pulse Rate 105 H Pulse Rate [ 105 H Right Apical] Respiratory 20 Rate Blood Pressure 136/72 Blood Pressure 136/72 [Right Arm] O2 Sat by Pulse 96 Oximetry (%) GENERAL: elderly lady, awake, alert, and AAOx2 (name, place), in no acute distress breathing on venturi mask. HEAD: Normal with no signs of trauma. EYES: pupils are miotic and reactive to light EARS, NOSE, THROAT: Ears normal, nares patent, oropharynx clear without exudates. Moist mucous membranes. NECK: Normal range of motion, supple without lymphadenopathy, JVD, or masses. LUNGS: diffuse expiratory wheezing and rhonchi, no accessory respiratory muscle use HEART: tachycardic, normal rhythm, normal S1 and S2 without murmur, rub or gallop. ABDOMEN: Soft, nontender, mildly distended, normoactive bowel sounds, no guarding, no rebound, no masses. No hepatomegaly or splenomegaly. MUSCULOSKELETAL: Normal range of motion at all joints. No bony deformities or tenderness. No CVA tenderness. UPPER EXTREMITIES: 2+ pulses, warm, well-perfused. No cyanosis. No clubbing. No peripheral edema. LOWER EXTREMITIES: 2+ pulses, warm, well-perfused. No calf tenderness. 2+ LE edema NEUROLOGICAL: Cranial nerves II-XII intact. Normal speech. 0/3 item recall at 5 minutes. Could spell WORLD backwards. Could not do serial 7s. PSYCHIATRIC: Cooperative. Good eye contact. Appropriate mood and affect. SKIN: Warm, dry, normal turgor, no rashes or lesions noted, normal capillary refill. Laboratory Tests 04/12/17 04/12/17 04/12/17 06:03 06:03 06:03 WBC 13.6 H RBC 3.86 Hgb 11.3 Hct 35.3 MCV 91.4 MCH 29.2 MCHC 31.9 L RDW 15.1 Plt Count 299 MPV 8.6 Neutrophils % 76.2 Lymphocytes % 9.2 D Monocytes % 14.1 H Eosinophils % 0.3 D Basophils % 0.2 PT with INR 11.20 INR 1.02 VBG pH POC VBG pCO2 POC VBG pO2 Mixed VBG HCO3 Sodium 142 Potassium 3.4 L Chloride 101 Carbon Dioxide 32 Anion Gap 9 BUN 33 H Creatinine 0.7 D Creat Clearance w eGFR > 60 Random Glucose 100 D Lactic Acid Calcium 9.3 Magnesium 2.5 H Total Bilirubin 0.4 D AST 21 ALT 26 Alkaline Phosphatase 69 B-Natriuretic Peptide 157.71 Total Protein 6.5 Albumin 2.9 L Urine Color Urine Appearance Urine pH Ur Specific [place] Urine Protein Urine Glucose (UA) Urine Ketones Urine Blood Urine Nitrite Urine Bilirubin Urine Urobilinogen Ur Leukocyte Esterase 04/12/17 04/12/17 04/12/17 06:03 06:05 06:14 WBC RBC Hgb Hct MCV MCH MCHC RDW Plt Count MPV Neutrophils % Lymphocytes % Monocytes % Eosinophils % Basophils % PT with INR INR VBG pH 7.31 L POC VBG pCO2 61.2 H* D POC VBG pO2 35.5 Mixed VBG HCO3 29.9 H Sodium Potassium Chloride Carbon Dioxide Anion Gap BUN Creatinine Creat Clearance w eGFR Random Glucose Lactic Acid 1.1 Calcium Magnesium Total Bilirubin AST ALT Alkaline Phosphatase B-Natriuretic Peptide Total Protein Albumin Urine Color Yellow Urine Appearance Turbid Urine pH 7.0 Ur Specific [place] 1.020 Urine Protein Negative Urine Glucose (UA) Negative Urine Ketones Negative Urine Blood Negative Urine Nitrite Negative Urine Bilirubin Negative Urine Urobilinogen Negative Ur Leukocyte Esterase Negative ASSESSMENT/PLAN: 86F w/ hx of CAD, COPD/asthma on home O2, Alzheimer's dementia, pulmonary lymphoma s/p lobectomy, HTN, HLD, GERD, hypothyroidism, 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 #Sepsis -2/2 HCAP as pt is coming from [facility], in setting of COPD, prior pulmonary lymphoma, and immunosuppression -ID on board, Dr. Sidhu, f/u recs -Pulmonary on board, Dr. Harding, f/u recs -f/u Bcx, sputum cx, Urine legionella and strep pneumo, flu swab -vancomycin and zosyn, duonebs q4h PRN, APAP for fever/pain, O2 via NC (88%- 92%) -trend wbc, temps -continuous pulse oximetry #Fall -likely 2/2 presyncope in setting of sepsis -hip XR negative for acute fracture -CT head negative for acute brain bleed -fall precautions #hypokalemia -K repleted -monitor K #CAD -continue ASA, #COPD/Asthma -continue spiriva, symbicort, duonebs PRN #Alzheimer dementia -continue donepezil #HTN -continue cardizem #HLD -continue lipitor #Hypothyroidism -continue synthroid #Overactive Bladder -continue oxybutynin #Yoly's granulomatosis -continue prednisone and mycophenalate mofetil #Anxiety/Depression -continue xanax and lexapro #GERD -zantac #Constipation -continue senna, colace, and miralax #FEN/PPx -NS at 100cc/hr -K repleted -low-sodium diet -zantac -lovenox 40 *Pt is DNR -Wander Arias MD PGY1 Visit type - Emergency Visit Emergency Visit: Yes ED Registration Date: 04/12/17 Care time: The patient presented to the Emergency Department on the above date and was hospitalized for further evaluation of their emergent condition. - New Patient This patient is new to me today: Yes Date on this admission: 04/12/17 - Critical Care Critical Care patient: No
[2017-04-12] MEDS ORDERED: PATIENT'S OWN MEDICATION (NON-FORMULARY) (Aa/Hydrolyzed Collagen, Whey [Lps 15-30 Liquid] PO SCH (15:45)
[2017-04-12] MEDS ORDERED: VANCOMYCIN 1 GRAM (PRE-DOCKED) 250 ML IVPB ONE ×2 (16:30→23:00)
[2017-04-12] MEDS: predniSONE 10 MG TABLET (UD) PO SCH (17:08)
[2017-04-12] MEDS: DOCUSATE SODIUM 100 MG CAPSULE (FP) PO SCH (17:08)
[2017-04-12] MEDS: ESCITALOPRAM OXALATE 10 MG TABLET (FP) PO SCH (17:08)
[2017-04-12] MEDS: ALPRAZolam 0.25 MG TABLET PO SCH ×2 (17:08→22:00)
[2017-04-12] MEDS: SODIUM CHLORIDE 1,000 ML IV SCH (17:19)
[2017-04-12] MEDS: MYCOPHENOLATE MOFETIL 500 MG TABLET PO SCH (17:19)
[2017-04-12] MEDS ORDERED: PT OWN MED DRAWER 7, Y5N ONE (18:27)
[2017-04-12] MEDS: ACETAMINOPHEN 325 MG TABLET (FP) PO PRN (18:29)
[2017-04-12] MEDS ORDERED: ENOXAPARIN NA (PORCINE) 60 MG/0.6 ML DISP.SYRIN SQ ONE (20:45)
[2017-04-12] MEDS ORDERED: DEXTROSE 5%-WATER - 50 ML IVPB ONE (21:22)
[2017-04-12] MEDS ORDERED: PIPERACILLIN/TAZOBACTAM 3.375 GM VIAL IVPB ONE (21:22)
[2017-04-12] MEDS: PIPERACILLIN/TAZOB 3.375 GM 3.375 GM in DEXTROSE 5%-WATER - 50 ML IVPB SCH (21:31)
[2017-04-12] MEDS: ATORVASTATIN CA 10 MG TABLET (FP) PO SCH (21:59)
[2017-04-12] MEDS: guaiFENesin 600 MG TABLET.ER (FP) PO SCH (21:59)
[2017-04-12] MEDS: MEMANTINE HCL 10 MG TABLET (FP) PO SCH (21:59)
[2017-04-12] MEDS: RANITIDINE HCL 150 MG TABLET (FP) PO SCH (22:00)
[2017-04-12] MEDS: CALCIUM 500MG/VIT-D 200 UNITS COMBO TABLET (FP) PO SCH (22:00)
[2017-04-12] MEDS: GABAPENTIN 300 MG CAPSULE (FP) PO SCH (22:00)
[2017-04-12] MEDS: BUDESONIDE/FORMETEROL FUMARATE 80/4.5 mcg INHALER IH SCH (22:00)
[2017-04-12] MEDS: SENNOSIDES 8.6MG TABLET (FP) PO SCH (22:00)
[2017-04-13] MEDS ORDERED: DEXTROSE 5%-WATER - 50 ML IVPB ONE ×2 (00:47→10:29)
[2017-04-13] MEDS ORDERED: PIPERACILLIN/TAZOBACTAM 3.375 GM VIAL IVPB ONE ×2 (00:47→10:29)
[2017-04-13] MEDS: PIPERACILLIN/TAZOB 3.375 GM 3.375 GM in DEXTROSE 5%-WATER - 50 ML IVPB SCH ×3 (01:46→17:25)
[2017-04-13] MEDS: ALPRAZolam 0.25 MG TABLET PO SCH ×3 (06:06→21:49)
[2017-04-13] MEDS: SODIUM CHLORIDE 1,000 ML IV SCH (06:08)
[2017-04-13] MEDS: LEVOTHYROXINE NA 75 MCG TABLET (FP) PO SCH (06:09)
[2017-04-13 07:29] LABS: BASOPHIL 0.2 % (0-2.0); EOSINOPHIL 0.3 % (0-4.5); MCH 29.4 pg (25.7-33.7); MCHC 32.2 g/dl (32.0-36.0); MEAN CELL VOLUME 91.4 fl (80-96); MEAN PLT VOLUME 8.6 fl (7.5-11.1); PLATELET COUNT 259 K/MM3 (134-434); RDW 15.1 % (11.6-15.6); WHITE BLOOD COUNT 10.3 K/mm3 (4.0-10.0)
[2017-04-13 07:49] LABS: ANION GAP 5 (8-16); CALCIUM 8.4 mg/dL (8.5-10.1); CO2 31 mmol/L (21-32); CREATININE 0.6 mg/dL (0.55-1.02); GLUCOSE,RANDOM 74 mg/dL (74-106)
[2017-04-13] MEDS ORDERED: PT OWN MED DRAWER 7, Y5N ONE ×2 (10:29→20:03)
[2017-04-13] MEDS: GABAPENTIN 300 MG CAPSULE (FP) PO SCH ×2 (10:33→21:47)
[2017-04-13] MEDS: DOCUSATE SODIUM 100 MG CAPSULE (FP) PO SCH (10:33)
[2017-04-13] MEDS: predniSONE 10 MG TABLET (UD) PO SCH (10:33)
[2017-04-13] MEDS: CALCIUM 500MG/VIT-D 200 UNITS COMBO TABLET (FP) PO SCH ×2 (10:33→21:47)
[2017-04-13] MEDS: RANITIDINE HCL 150 MG TABLET (FP) PO SCH ×2 (10:33→21:49)
[2017-04-13] MEDS: MEMANTINE HCL 10 MG TABLET (FP) PO SCH ×2 (10:33→21:47)
[2017-04-13] MEDS: MYCOPHENOLATE MOFETIL 500 MG TABLET PO SCH (10:34)
[2017-04-13] MEDS: SOLIFENACIN SUCCINATE 5 MG TAB (FP) PO SCH (10:34)
[2017-04-13] MEDS: LORATADINE 10 MG TABLET PO SCH (10:34)
[2017-04-13] MEDS: MULTIVITAMINS THER W-MINERALS COMBO TABLET (FP) PO SCH (10:34)
[2017-04-13] MEDS: guaiFENesin 600 MG TABLET.ER (FP) PO SCH ×2 (10:34→21:46)
[2017-04-13] MEDS: ESCITALOPRAM OXALATE 10 MG TABLET (FP) PO SCH (10:34)
[2017-04-13] MEDS: ASPIRIN 81 MG CHEWABLE TABLETS PO SCH (10:34)
[2017-04-13] MEDS: DONEPEZIL HCL 10 MG TABLET (FP) PO SCH (10:34)
[2017-04-13] MEDS: TIOTROPIUM BROMIDE 18 MCG/INH (DEVICE W/ 5 CAPSULES) IH SCH (10:34)
[2017-04-13] MEDS: POLYETHYLENE GLYCOL 3350 119 GM BTL PO SCH (10:35)
[2017-04-13] MEDS: BUDESONIDE/FORMETEROL FUMARATE 80/4.5 mcg INHALER IH SCH ×2 (10:35→21:48)
[2017-04-13] MEDS: AMINO ACIDS/PROTEIN HYDROLYS 30 ML LIQUID.PKT PO SCH (10:36)
--- NOTE | 2017-04-13 10:37 | PN ---
Progress Note (short form) - Note Progress Note: Sitting in a wheelchair in the hallway. Awake and alert but mildly confused. Reports some cough. Denies CP or SOB. Intake & Output 04/10/17 04/11/17 04/12/17 04/13/17 23:59 23:59 23:59 23:59 Intake Total 50 1200 Balance 50 1200 Weight 145 lb 0.004 oz Last Vital Signs Temp Pulse Resp BP Pulse Ox 98.4 F 88 20 138/82 95 04/13/17 09:05 04/13/17 09:05 04/13/17 09:05 04/13/17 09:05 04/12/17 21:00 Active Medications Acetaminophen (Tylenol -) 650 mg PO Q4H PRN PRN Reason: FEVER OR PAIN Last Admin: 04/12/17 18:29 Dose: 650 mg Albuterol/Ipratropium (Duoneb -) 1 amp NEB Q4H PRN PRN Reason: SHORTNESS OF BREATH Alprazolam (Xanax -) 0.25 mg PO TID [facility] Last Admin: 04/13/17 06:06 Dose: Not Given Amino Acids (Prosource No Carb Liquid Pkt) 30 ml PO DAILY [facility] Aspirin (Asa -) 81 mg PO DAILY [facility] Atorvastatin Calcium (Lipitor -) 10 mg PO HS [facility] Last Admin: 04/12/17 21:59 Dose: 10 mg Budesonide/Formoterol Fumarate (Symbicort 80/4.5mcg -) 2 puff IH BID [facility] Last Admin: 04/12/17 22:00 Dose: 2 inhaler Calcium Carbonate/Cholecalciferol (Os-Juan 500+D -) 1 tab PO BID [facility] Last Admin: 04/12/17 22:00 Dose: 1 tab Diltiazem HCl (Cardizem Cd -) 240 mg PO DAILY [facility] Docusate Sodium (Colace -) 200 mg PO DAILY [facility] Last Admin: 04/12/17 17:08 Dose: 200 mg Donepezil HCl (Aricept -) 10 mg PO DAILY [facility] Enoxaparin Sodium (Lovenox -) 40 mg SQ DAILY [facility] Last Admin: 04/12/17 12:17 Dose: 40 mg Escitalopram Oxalate (Lexapro -) 10 mg PO DAILY [facility] Last Admin: 04/12/17 17:08 Dose: 10 mg Gabapentin (Neurontin -) 300 mg PO BID [facility] Last Admin: 04/12/17 22:00 Dose: 300 mg Guaifenesin (Mucinex -) 600 mg PO BID [facility] Last Admin: 04/12/17 21:59 Dose: 600 mg Sodium Chloride (Normal Saline -) 1,000 mls @ 100 mls/hr IV ASDIR [facility] Last Admin: 04/13/17 06:08 Dose: 100 mls/hr Piperacillin Sod/Tazobactam (Sod 3.375 gm/ Dextrose) 50 mls @ 100 mls/hr IVPB Q8H-IV [place] PRN Reason: Protocol Last Admin: 04/13/17 01:46 Dose: 100 mls/hr Levothyroxine Sodium (Synthroid -) 75 mcg PO DAILY@0700 [facility] Last Admin: 04/13/17 06:09 Dose: 75 mcg Loratadine (Claritin -) 10 mg PO DAILY [facility] Memantine (Namenda -) 10 mg PO BID [facility] Last Admin: 04/12/17 21:59 Dose: 10 mg Multivitamins/Minerals (Theragran-M) 1 each PO DAILY [facility] Mycophenolate Mofetil (Cellcept -) 500 mg PO DAILY [facility] Last Admin: 04/12/17 17:19 Dose: 500 mg Non-Formulary Medication (Olopatadine Hcl [Pataday]) 1 ml OU DAILY [facility] Polyethylene Glycol (Miralax (For Daily Use) -) 17 gm PO DAILY [facility] Prednisone (Deltasone -) 15 mg PO DAILY [facility] Last Admin: 04/12/17 17:08 Dose: 15 mg Ranitidine HCl (Zantac -) 150 mg PO BID [facility] Last Admin: 04/12/17 22:00 Dose: 150 mg Senna (Senna -) 2 tab PO HS [facility] Last Admin: 04/12/17 22:00 Dose: 2 tab Solifenacin (Vesicare -) 5 mg PO DAILY [facility] Tiotropium [place] (Spiriva -) 1 puff IH DAILY [facility] Constitutional: Yes: NAD, Thin Eyes: Yes: Conjunctiva Clear HENT: Yes: Normocephalic Neck: Yes: Trachea Midline Cardiovascular: Yes: Tachycardia, S1, S2 Respiratory: Yes: Rhonchi Gastrointestinal: Yes: Soft Edema: No Labs: Laboratory Results - last 24 hr 04/12/17 04/13/17 04/13/17 06:14 06:25 06:25 WBC 10.3 H RBC 3.40 L Hgb 10.0 L D Hct 31.1 L MCV 91.4 MCH 29.4 MCHC 32.2 RDW 15.1 Plt Count 259 MPV 8.6 Neutrophils % 74.0 Lymphocytes % 12.3 D Monocytes % 13.2 H Eosinophils % 0.3 Basophils % 0.2 Sodium 141 Potassium 3.7 Chloride 105 Carbon Dioxide 31 Anion Gap 5 L BUN 24 H D Creatinine 0.6 Random Glucose 74 D Calcium 8.4 L Phosphorus 3.0 D Urine Color Yellow Urine Appearance Turbid Urine pH 7.0 Ur Specific [place] 1.020 Urine Protein Negative Urine Glucose (UA) Negative Urine Ketones Negative Urine Blood Negative Urine Nitrite Negative Urine Bilirubin Negative Urine Urobilinogen Negative Ur Leukocyte Esterase Negative Problem List - Problems (1) Anxiety Code(s): F41.9 - ANXIETY DISORDER, UNSPECIFIED (2) Acute exacerbation of COPD with asthma Code(s): J44.1 - CHRONIC OBSTRUCTIVE PULMONARY DISEASE W (ACUTE) EXACERBATION J45.901 - UNSPECIFIED ASTHMA WITH (ACUTE) EXACERBATION (3) COPD with acute exacerbation Code(s): J44.1 - CHRONIC OBSTRUCTIVE PULMONARY DISEASE W (ACUTE) EXACERBATION (4) Chronic bronchitis with acute exacerbation Code(s): J20.9 - ACUTE BRONCHITIS, UNSPECIFIED J42 - UNSPECIFIED CHRONIC BRONCHITIS (5) Coughing Code(s): R05 - COUGH Assessment/Plan O2 SUPPLEMENTATION NEEDED FOLLOW CULTURES NOTED EMPIRIC ANTIBIOTIC COVERAGE -> (+) UA BRONCHODILATORS DAILY PREDNISONE SPIRIVA LOVENOX DR COYNE
[2017-04-13] MEDS: ENOXAPARIN NA (PORCINE) 40 MG/0.4 ML DISP.SYRIN SQ SCH (16:21)
[2017-04-13] MEDS: OLOPATADINE HCL OU SCH (16:29)
--- NOTE | 2017-04-13 17:15 | PN ---
Progress Note (short form) - Note Progress Note: ID Consult dictated Recurrent pneumonia Vasculitis on immunosuppressive therapy Await cultures Continue esthern
--- NOTE | 2017-04-13 17:18 | PN ---
Physical Exam: SUBJECTIVE: Patient seen and examined No new c/o OBJECTIVE: Vital Signs Period Temp Pulse Resp BP Sys/Bahena Pulse Ox Last 24 Hr 97.9 F-101.5 F 83-115 18-22 112-147/63-90 95-96 GENERAL: The patient is awake, and alert HEAD: Normal with no signs of trauma. EYES: PERRL, extraocular movements intact, sclera anicteric, conjunctiva clear. No ptosis. LUNGS: Expiratory wheezes, no accessory muscle use. HEART: Regular rate and rhythm, S1, S2 without murmur, rub or gallop. ABDOMEN: Soft, nontender, nondistended, normoactive bowel sounds, EXTREMITIES: 2+ pulses, warm, well-perfused, no edema. NEUROLOGICAL: Cranial nerves II through XII grossly intact. Normal speech, gait not observed. PSYCH: Normal mood, normal affect. Laboratory Results - last 24 hr 04/13/17 04/13/17 06:25 06:25 WBC 10.3 H RBC 3.40 L Hgb 10.0 L D Hct 31.1 L MCV 91.4 MCH 29.4 MCHC 32.2 RDW 15.1 Plt Count 259 MPV 8.6 Neutrophils % 74.0 Lymphocytes % 12.3 D Monocytes % 13.2 H Eosinophils % 0.3 Basophils % 0.2 Sodium 141 Potassium 3.7 Chloride 105 Carbon Dioxide 31 Anion Gap 5 L BUN 24 H D Creatinine 0.6 Random Glucose 74 D Calcium 8.4 L Phosphorus 3.0 D Microbiology 04/12/17 06:35 Urine - Urine Clean Catch Urine Culture - Preliminary Lactose Fermenting Neg Bacilli 04/12/17 06:14 Urine - Urine Clean Catch Urine Culture - Preliminary Lactose Fermenting Neg Bacilli Active Medications Generic Name Dose Route Start Last Admin Trade Name Freq PRN Reason Stop Dose Admin Acetaminophen 650 mg 04/12/17 15:37 04/12/17 18:29 Tylenol - PO 650 mg Q4H PRN Administration FEVER OR PAIN Albuterol/Ipratropium 1 amp 04/12/17 15:36 Duoneb - NEB Q4H PRN SHORTNESS OF BREATH Alprazolam 0.25 mg 04/12/17 15:45 04/13/17 14:46 Xanax - PO 0.25 mg TID BEVERLY Administration Amino Acids 30 ml 04/13/17 10:00 04/13/17 10:36 Prosource No Carb Liquid Pkt PO 30 ml DAILY BEVERLY Administration Aspirin 81 mg 04/13/17 10:00 04/13/17 10:34 Asa - PO 81 mg DAILY BEVERLY Administration Atorvastatin Calcium 10 mg 04/12/17 22:00 04/12/17 21:59 Lipitor - PO 10 mg HS BEVERLY Administration Budesonide/Formoterol Fumarate 2 puff 04/12/17 22:00 04/13/17 10:35 Symbicort 80/4.5mcg - IH 2 inhaler BID BEVERLY Administration Calcium Carbonate/Cholecalciferol 1 tab 04/12/17 22:00 04/13/17 10:33 Os-Juan 500+D - PO 1 tab BID BEVERLY Administration Diltiazem HCl 240 mg 04/13/17 10:00 04/13/17 10:34 Cardizem Cd - PO 240 mg DAILY BEVERLY Administration Docusate Sodium 200 mg 04/12/17 15:45 04/13/17 10:33 Colace - PO 200 mg DAILY BEVERLY Administration Donepezil HCl 10 mg 04/13/17 10:00 04/13/17 10:34 Aricept - PO 10 mg DAILY BEVERLY Administration Enoxaparin Sodium 40 mg 04/13/17 16:00 04/13/17 16:21 Lovenox - SQ 40 mg DAILY BEVERLY Administration Escitalopram Oxalate 10 mg 04/12/17 15:45 04/13/17 10:34 Lexapro - PO 10 mg DAILY BEVERLY Administration Gabapentin 300 mg 04/12/17 22:00 04/13/17 10:33 Neurontin - PO 300 mg BID BEVERLY Administration Guaifenesin 600 mg 04/12/17 22:00 04/13/17 10:34 Mucinex - PO 600 mg BID BEVERLY Administration Sodium Chloride 1,000 mls @ 100 mls/hr 04/12/17 15:45 04/13/17 06:08 Normal Saline - IV 100 mls/hr ASDIR BEVERLY Administration Piperacillin Sod/Tazobactam 50 mls @ 100 mls/hr 04/12/17 21:15 04/13/17 10:35 Sod 3.375 gm/ Dextrose IVPB 100 mls/hr Q8H-IV BEVERLY Administration Protocol Levothyroxine Sodium 75 mcg 04/13/17 07:00 04/13/17 06:09 Synthroid - PO 75 mcg DAILY@0700 BEVERLY Administration Loratadine 10 mg 04/13/17 10:00 04/13/17 10:34 Claritin - PO 10 mg DAILY BEVERLY Administration Memantine 10 mg 04/12/17 22:00 04/13/17 10:33 Namenda - PO 10 mg BID BEVERLY Administration Multivitamins/Minerals 1 each 04/13/17 10:00 04/13/17 10:34 Theragran-M PO 1 each DAILY BEVERLY Administration Mycophenolate Mofetil 500 mg 04/12/17 15:45 04/13/17 10:34 Cellcept - PO 500 mg DAILY BEVERLY Administration Polyethylene Glycol 17 gm 04/13/17 10:00 04/13/17 10:35 Miralax (For Daily Use) - PO 17 gm DAILY BEVERLY Administration Prednisone 15 mg 04/12/17 15:45 04/13/17 10:33 Deltasone - PO 15 mg DAILY BEVERLY Administration Ranitidine HCl 150 mg 04/12/17 22:00 04/13/17 10:33 Zantac - PO 150 mg BID BEVERLY Administration Senna 2 tab 04/12/17 22:00 04/12/17 22:00 Senna - PO 2 tab HS BEVERLY Administration Solifenacin 5 mg 04/13/17 10:00 04/13/17 10:34 Vesicare - PO 5 mg DAILY BEVERLY Administration Tiotropium [place] 1 puff 04/13/17 10:00 04/13/17 10:34 Spiriva - IH 1 inh DAILY BEVERLY Administration ASSESSMENT/PLAN: 86F w/ hx of CAD, COPD/asthma on home O2, Alzheimer's dementia, pulmonary lymphoma s/p lobectomy, HTN, HLD, GERD, hypothyroidism, 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 #Sepsis: -Improving WBCs, now 10.3, Afebrile, no more tachycardia -ID on board, Dr. Sidhu, f/u recs -Pulmonary on board, Dr. Harding, f/u recs -Urine cx prelim grew Lactose Fermenting Neg Bacilli pending final -f/u Bcx, sputum cx, Urine legionella and strep pneumo, flu swab -day 2 on AB* vancomycin and zosyn, duonebs q4h PRN, APAP for fever/pain, O2 via NC (88%-92%) #Fall -likely 2/2 presyncope in setting of sepsis -hip XR negative for acute fracture -CT head negative for acute brain bleed -fall precautions #hypokalemia: resolved -monitor K #CAD -continue ASA, #COPD/Asthma -continue spiriva, symbicort, duonebs PRN #Alzheimer dementia -continue donepezil #HTN -continue cardizem #HLD -continue lipitor #Hypothyroidism -continue synthroid #Overactive Bladder -continue oxybutynin #Blas's granulomatosis -continue prednisone and mycophenalate mofetil #Anxiety/Depression -continue xanax and lexapro #GERD -zantac #Constipation -continue senna, colace, and miralax #FEN/PPx -NS at 100cc/hr -K repleted -low-sodium diet -zantac -lovenox 40 Visit type - Emergency Visit Emergency Visit: Yes ED Registration Date: 04/12/17 Care time: The patient presented to the Emergency Department on the above date and was hospitalized for further evaluation of their emergent condition. - New Patient This patient is new to me today: No - Critical Care Critical Care patient: No - Discharge Referral Referred to [facility] Med P.C.: No
--- NOTE | 2017-04-13 18:10 | CONS ---
DATE OF CONSULTATION: DATE OF DICTATION: 04/13/2017 The patient is an 86-year-old female with a history of vasculitis, recurrent pneumonia, and COPD evaluated for pneumonia. History was obtained from the chart as she suffers from dementia and cannot give a reliable history. [facility]. She subsequently developed dyspnea and cough. She was evaluated in the emergency room where she was febrile to 101.5, tachycardic, and was noted to have an elevated white blood cell count. She was admitted with a diagnosis of recurrent pneumonia. The patient reports a cough which is chronic in nature. She cannot describe the quality or color of her sputum. She denies any chest pain or dyspnea. She denies any ill contacts; however, she does report patients coughing at the [facility]. She is a nonsmoker and no recent travel. She has had recent hospitalizations for pulmonary infection. PAST MEDICAL HISTORY: Positive for Ch[place]-Eugenie, hypertension, hyperlipidemia, gastroesophageal reflux disease, hypothyroidism, coronary artery disease, COPD, dementia, and history of non-Hodgkins lymphoma. ALLERGIES: LEVAQUIN; the nature of the allergy is not known. MEDICATIONS: 1. Symbicort. 2. Prednisone 15 mg daily. 3. Tylenol. 4. Lovenox. 5. Neurontin. 6. Lexapro. 7. Spiriva. 8. Xanax. 9. Cardizem. 10. VESIcare. 11. Zantac. 12. Lipitor. 13. Mycophenolate. SOCIAL HISTORY: She resides in an assisted living complex, nonsmoker, and nondrinker. REVIEW OF SYSTEMS: NEUROLOGIC: No loss of consciousness, seizure activity, or focal weakness. CARDIAC: Negative chest pain to palpations. RESPIRATORY: As per HPI. GASTROINTESTINAL: Negative vomiting or diarrhea, and positive gastroesophageal reflux disease. GENITOURINARY: Negative for urinary tract infection. LABORATORY DATA: White count on admission 13.6, presently 10.3, hematocrit 31.1, and platelet count 259. BUN 24, creatinine 0.6. Liver enzymes normal. Urinalysis: Negative leukocyte estrace. Cultures are pending. Flu swab negative. Chest x-ray: Some chronic pulmonary findings with volume loss left lower lobe. Possible left lower lobe infiltrate versus atelectasis. PHYSICAL EXAMINATION: General: She is awake and alert. She is out of bed to chair. She is not acutely toxic appearing. She is not acutely dyspneic at rest. Occasional cough is noted. Vital Signs: Temperature 99.5, T-Max 101.5, blood pressure 112/63, pulse 79 and regular, and respirations 22 per minute. HEENT: Sclerae anicteric. Heart: Sounds S1, S2. Lungs: Diminished breath sounds at the left base; otherwise, occasional rhonchi but her lungs are essentially clear. Abdomen: Soft, non tenderness elicited. No masses, rebound, or rigidity. Extremities: Negative for edema. IMPRESSION: 1. Possible health care-associated pneumonia. 2. History of vasculitis on immunosuppressive therapy. 3. Exacerbation of chronic obstructive pulmonary disease. 4. FLUOROQUINOLONE allergy. I advised treatment for possible health care-associated pathogens with Zosyn pending sputum and blood culture results. Obtain urine Legionella antigen and pneumococcal antigen. Continue bronchodilators and corticosteroids. We will follow. Thank for the kind referral. OTONIEL EMERY M.D. [id number]
--- NOTE | 2017-04-13 19:05 | PN ---
Teaching Attending Note Name of Resident: Rosa Naylor ATTENDING PHYSICIAN STATEMENT I saw and evaluated the patient. I reviewed the resident's note and discussed the case with the resident. I agree with the resident's findings and plan as documented. SUBJECTIVE: Feels better today. No acute distress. OBJECTIVE: Vital Signs Temperature 97.7 F 04/13/17 18:00 Pulse Rate 91 H 04/13/17 18:00 Respiratory Rate 18 04/13/17 18:00 Blood Pressure 113/58 04/13/17 18:00 O2 Sat by Pulse Oximetry (%) 95 04/13/17 12:07 CBCD WBC 10.3 K/mm3 (4.0-10.0) H 04/13/17 06:25 RBC 3.40 M/mm3 (3.60-5.2) L 04/13/17 06:25 Hgb 10.0 GM/dL (10.7-15.3) L D 04/13/17 06:25 Hct 31.1 % (32.4-45.2) L 04/13/17 06:25 MCV 91.4 fl (80-96) 04/13/17 06:25 MCHC 32.2 g/dl (32.0-36.0) 04/13/17 06:25 RDW 15.1 % (11.6-15.6) 04/13/17 06:25 Plt Count 259 K/MM3 (134-434) 04/13/17 06:25 MPV 8.6 fl (7.5-11.1) 04/13/17 06:25 CMP Sodium 141 mmol/L (136-145) 04/13/17 06:25 Potassium 3.7 mmol/L (3.5-5.1) 04/13/17 06:25 Chloride 105 mmol/L (98-107) 04/13/17 06:25 Carbon Dioxide 31 mmol/L (21-32) 04/13/17 06:25 Anion Gap 5 (8-16) L 04/13/17 06:25 BUN 24 mg/dL (7-18) H D 04/13/17 06:25 Creatinine 0.6 mg/dL (0.55-1.02) 04/13/17 06:25 Creat Clearance w eGFR > 60 (>60) 04/12/17 06:03 Random Glucose 74 mg/dL (74-106) D 04/13/17 06:25 Calcium 8.4 mg/dL (8.5-10.1) L 04/13/17 06:25 Total Bilirubin 0.4 mg/dL (0.2-1.0) D 04/12/17 06:03 AST 21 U/L (15-37) 04/12/17 06:03 ALT 26 U/L (12-78) 04/12/17 06:03 Alkaline Phosphatase 69 U/L (45-117) 04/12/17 06:03 Total Protein 6.5 g/dl (6.4-8.2) 04/12/17 06:03 Albumin 2.9 g/dl (3.4-5.0) L 04/12/17 06:03 Current Medications Generic Name Dose Route Start Last Admin Trade Name Freq PRN Reason Stop Dose Admin Acetaminophen 650 mg 04/12/17 15:37 04/12/17 18:29 Tylenol - PO 650 mg Q4H PRN Administration FEVER OR PAIN Albuterol/Ipratropium 1 amp 04/12/17 15:36 Duoneb - NEB Q4H PRN SHORTNESS OF BREATH Alprazolam 0.25 mg 04/12/17 15:45 04/13/17 14:46 Xanax - PO 0.25 mg TID BEVERLY Administration Amino Acids 30 ml 04/13/17 10:00 04/13/17 10:36 Prosource No Carb Liquid Pkt PO 30 ml DAILY BEVERLY Administration Aspirin 81 mg 04/13/17 10:00 04/13/17 10:34 Asa - PO 81 mg DAILY BEVERLY Administration Atorvastatin Calcium 10 mg 04/12/17 22:00 04/12/17 21:59 Lipitor - PO 10 mg HS BEVERLY Administration Budesonide/Formoterol Fumarate 2 puff 04/12/17 22:00 04/13/17 10:35 Symbicort 80/4.5mcg - IH 2 inhaler BID BEVERLY Administration Calcium Carbonate/Cholecalciferol 1 tab 04/12/17 22:00 04/13/17 10:33 Os-Juan 500+D - PO 1 tab BID BEVERLY Administration Diltiazem HCl 240 mg 04/13/17 10:00 04/13/17 10:34 Cardizem Cd - PO 240 mg DAILY BEVERLY Administration Docusate Sodium 200 mg 04/12/17 15:45 04/13/17 10:33 Colace - PO 200 mg DAILY BEVERLY Administration Donepezil HCl 10 mg 04/13/17 10:00 04/13/17 10:34 Aricept - PO 10 mg DAILY BEVERLY Administration Enoxaparin Sodium 40 mg 04/13/17 16:00 04/13/17 16:21 Lovenox - SQ 40 mg DAILY BEVERLY Administration Escitalopram Oxalate 10 mg 04/12/17 15:45 04/13/17 10:34 Lexapro - PO 10 mg DAILY BEVERLY Administration Gabapentin 300 mg 04/12/17 22:00 04/13/17 10:33 Neurontin - PO 300 mg BID BEVERLY Administration Guaifenesin 600 mg 04/12/17 22:00 04/13/17 10:34 Mucinex - PO 600 mg BID BEVERLY Administration Sodium Chloride 1,000 mls @ 100 mls/hr 04/12/17 15:45 04/13/17 06:08 Normal Saline - IV 100 mls/hr ASDIR BEVERLY Administration Piperacillin Sod/Tazobactam 50 mls @ 100 mls/hr 04/12/17 21:15 04/13/17 17:25 Sod 3.375 gm/ Dextrose IVPB 100 mls/hr Q8H-IV BEVERLY Administration Protocol Levothyroxine Sodium 75 mcg 04/13/17 07:00 04/13/17 06:09 Synthroid - PO 75 mcg DAILY@0700 BEVERLY Administration Loratadine 10 mg 04/13/17 10:00 04/13/17 10:34 Claritin - PO 10 mg DAILY BEVERLY Administration Memantine 10 mg 04/12/17 22:00 04/13/17 10:33 Namenda - PO 10 mg BID BEVERLY Administration Multivitamins/Minerals 1 each 04/13/17 10:00 04/13/17 10:34 Theragran-M PO 1 each DAILY BEVERLY Administration Mycophenolate Mofetil 500 mg 04/12/17 15:45 04/13/17 10:34 Cellcept - PO 500 mg DAILY BEVERLY Administration Polyethylene Glycol 17 gm 04/13/17 10:00 04/13/17 10:35 Miralax (For Daily Use) - PO 17 gm DAILY BEVERLY Administration Prednisone 15 mg 04/12/17 15:45 04/13/17 10:33 Deltasone - PO 15 mg DAILY BEVERLY Administration Ranitidine HCl 150 mg 04/12/17 22:00 04/13/17 10:33 Zantac - PO 150 mg BID BEVERLY Administration Senna 2 tab 04/12/17 22:00 04/12/17 22:00 Senna - PO 2 tab HS BEVERLY Administration Solifenacin 5 mg 04/13/17 10:00 04/13/17 10:34 Vesicare - PO 5 mg DAILY BEVERLY Administration Tiotropium [place] 1 puff 04/13/17 10:00 04/13/17 10:34 Spiriva - IH 1 inh DAILY BEVERLY Administration Home Medications Medication Instructions Recorded Aa/Hydrolyzed Collagen, Whey [Lps 30 ml PO DAILY 01/12/17 15-30 Liquid] Acetaminophen [Tylenol] 650 mg PO QID PRN 01/12/17 Albuterol Sulfate [Proventil HFA 1 - 2 inh PO QID PRN 01/12/17 Inhaler -] Alprazolam [Xanax] 0.25 mg PO TID 01/12/17 Aspirin [Children's Aspirin] 81 mg PO DAILY 01/12/17 Atorvastatin Ca [Lipitor] 10 mg PO HS 01/12/17 Calcium Carbonate/Vitamin D3 1 each PO BID 01/12/17 [Oyster Shell 500-Vit D3 200 Tb] Diltiazem Cd [Cardizem Cd -] 240 mg PO DAILY 01/12/17 Docusate Sodium 200 mg PO DAILY 01/12/17 Donepezil HCl [Aricept] 10 mg PO DAILY 01/12/17 Escitalopram Oxalate [Lexapro -] 10 mg PO DAILY 01/12/17 Gabapentin 300 mg PO BID 01/12/17 Levothyroxine [Synthroid -] 75 mcg PO DAILY 01/12/17 Loratadine [Allergy] 10 mg PO DAILY 01/12/17 Memantine HCl [Namenda -] 10 mg PO BID 01/12/17 Multivitamin with Iron [Daily Mabel 1 each PO DAILY 01/12/17 with Iron] Mycophenolate Mofetil [Cellcept] 500 mg PO DAILY 01/12/17 Olopatadine HCl [Pataday] 1 ml OU DAILY 01/12/17 Oxybutynin Chloride [Oxybutynin 5 mg PO DAILY 01/12/17 Chloride ER] Polyethylene Glycol 3350 [Miralax 17 gm PO DAILY 01/12/17 119 gm Btl -] Sennosides [Senna] 17.2 mg PO HS 01/12/17 Prednisone 15 mg PO DAILY #20 tablet 01/16/17 Budesonide/Formeterol Fumarate 2 puff IH BID #1 inhaler 01/17/17 [SYMBICORT 80/4.5mcg -] Tiotropium [place] [Spiriva] 18 mcg IH DAILY 03/16/17 CT head negative for acute brain bleed PE: per resident's note; chest: left >right mild Rhochi, improving ASSESSMENT AND PLAN: Patient is a 86F w/ hx of CAD, COPD/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 #s/p Sepsis due to Hcap ,ID on the case , Pulmonary on board, Dr. Harding, s/p one dose of vancomycin , continue zosyn, duonebs q4h PRN, APAP for fever/pain, O2 via NC (88%-92%) dependent on 2L oxygen, trend wbc, temps, continuous pulse oximetry # HCAP on IV antibiotic continue , Pulmonary on the case , Id on the case. #Fall possible due to presyncope in setting of sepsis, hip XR negative for acute fracture, fall precautions #hypokalemia replet #CAD continue ASA #Alzheimer dementia continue donepezil #HTN continue cardizem #HLD continue lipitor #Hypothyroidism continue synthroid #Overactive Bladder continue oxybutynin #Yoly's granulomatosis continue prednisone and mycophenalate mofetil #Anxiety/Depression continue xanax and lexapro #GERD zantac #Constipation continue senna, colace, and miralax DVT px: lovenox 40 Pt is DNR
[2017-04-13] MEDS: ATORVASTATIN CA 10 MG TABLET (FP) PO SCH (21:46)
[2017-04-13] MEDS: SENNOSIDES 8.6MG TABLET (FP) PO SCH (21:47)
[2017-04-14] MEDS: PIPERACILLIN/TAZOB 3.375 GM 3.375 GM in DEXTROSE 5%-WATER - 50 ML IVPB SCH ×2 (02:37→10:24)
[2017-04-14] MEDS: LEVOTHYROXINE NA 75 MCG TABLET (FP) PO SCH (06:13)
[2017-04-14] MEDS: ALPRAZolam 0.25 MG TABLET PO SCH ×3 (06:13→21:47)
[2017-04-14 07:25] LABS: BASOPHIL 0.3 % (0-2.0); EOSINOPHIL 1.3 % (0-4.5); MCH 29.4 pg (25.7-33.7); MCHC 32.3 g/dl (32.0-36.0); MEAN CELL VOLUME 91.1 fl (80-96); MEAN PLT VOLUME 8.4 fl (7.5-11.1); NEUTROPHILS 70.1 % (42.8-82.8); PLATELET COUNT 267 K/MM3 (134-434); RDW 14.7 % (11.6-15.6); WHITE BLOOD COUNT 10.4 K/mm3 (4.0-10.0)
[2017-04-14 07:34] LABS: ALBUMIN 2.4 g/dl (3.4-5.0); ANION GAP 6 (8-16); BILIRUBIN,TOTAL 0.2 mg/dL (0.2-1.0); CALCIUM 8.3 mg/dL (8.5-10.1); CO2 31 mmol/L (21-32); CREATININE 0.7 mg/dL (0.55-1.02); GLUCOSE,RANDOM 76 mg/dL (74-106); PHOSPHOROUS 2.4 mg/dL (2.5-4.9); SGOT/AST 15 U/L (15-37); SGPT/ALT 23 U/L (12-78); TOT PROT 5.4 g/dl (6.4-8.2)
[2017-04-14 07:38] LABS: ALK PHOS 58 U/L (45-117); MAGNESIUM 2.4 mg/dL (1.8-2.4)
--- NOTE | 2017-04-14 09:42 | PN ---
Physical Exam: SUBJECTIVE: Patient seen and examined Feels better, no c/o overnight OBJECTIVE: Vital Signs Period Temp Pulse Resp BP Sys/Bahena Pulse Ox Last 24 Hr 97.7 F-99.5 F 78-96 18-22 112-145/58-95 95-95 GENERAL: The patient is awake, alert, and fully oriented, in no acute distress. On 2L oxygen by nasal cannular EYES: PERRL, extraocular movements intact, sclera anicteric, conjunctiva clear. ENT: moist mucous membranes, teeth bridges in place LUNGS: no wheezes, bilateral crackles, no accessory muscle use. HEART: Regular rate and rhythm, S1, S2, 2/6 murmur RLSB, rub or gallop. ABDOMEN: Soft, nontender, nondistended, normoactive bowel sounds, no guarding, no rebound, no hepatosplenomegaly, no masses. No CVA tenderness bilaterally. EXTREMITIES: 2+ pulses, warm, well-perfused, bilateral pitting edema 1+. NEUROLOGICAL: No facial droop, normal power and tone upper limbs. Cranial nerves II through XII grossly intact. Normal speech, gait not observed. PSYCH: Normal mood, normal affect. Laboratory Results - last 24 hr 04/14/17 04/14/17 06:25 06:25 WBC 10.4 H RBC 3.33 L Hgb 9.8 L Hct 30.4 L MCV 91.1 MCH 29.4 MCHC 32.3 RDW 14.7 Plt Count 267 MPV 8.4 Neutrophils % 70.1 Lymphocytes % 16.7 D Monocytes % 11.6 H Eosinophils % 1.3 D Basophils % 0.3 Sodium 143 Potassium 3.3 L Chloride 106 Carbon Dioxide 31 Anion Gap 6 L BUN 26 H Creatinine 0.7 Creat Clearance w eGFR > 60 Random Glucose 76 Calcium 8.3 L Phosphorus 2.4 L Magnesium 2.4 Total Bilirubin 0.2 D AST 15 D ALT 23 Alkaline Phosphatase 58 Total Protein 5.4 L Albumin 2.4 L Urine culture-E coli-ESBL- sensitive to Zosyn Active Medications Generic Name Dose Route Start Last Admin Trade Name Freq PRN Reason Stop Dose Admin Acetaminophen 650 mg 04/12/17 15:37 04/12/17 18:29 Tylenol - PO 650 mg Q4H PRN Administration FEVER OR PAIN Albuterol/Ipratropium 1 amp 04/12/17 15:36 Duoneb - NEB Q4H PRN SHORTNESS OF BREATH Alprazolam 0.25 mg 04/12/17 15:45 04/14/17 06:13 Xanax - PO 0.25 mg TID BEVERLY Administration Amino Acids 30 ml 04/13/17 10:00 04/13/17 10:36 Prosource No Carb Liquid Pkt PO 30 ml DAILY BEVERLY Administration Aspirin 81 mg 04/13/17 10:00 04/13/17 10:34 Asa - PO 81 mg DAILY BEVERLY Administration Atorvastatin Calcium 10 mg 04/12/17 22:00 04/13/17 21:46 Lipitor - PO 10 mg HS BEVERLY Administration Budesonide/Formoterol Fumarate 2 puff 04/12/17 22:00 04/13/17 21:48 Symbicort 80/4.5mcg - IH 2 puff BID BEVERLY Administration Calcium Carbonate/Cholecalciferol 1 tab 04/12/17 22:00 04/13/17 21:47 Os-Juan 500+D - PO 1 tab BID BEVERLY Administration Diltiazem HCl 240 mg 04/13/17 10:00 04/13/17 10:34 Cardizem Cd - PO 240 mg DAILY BEVERLY Administration Docusate Sodium 200 mg 04/12/17 15:45 04/13/17 10:33 Colace - PO 200 mg DAILY BEVERLY Administration Donepezil HCl 10 mg 04/13/17 10:00 04/13/17 10:34 Aricept - PO 10 mg DAILY BEVERLY Administration Enoxaparin Sodium 40 mg 04/13/17 16:00 04/13/17 16:21 Lovenox - SQ 40 mg DAILY BEVERLY Administration Escitalopram Oxalate 10 mg 04/12/17 15:45 04/13/17 10:34 Lexapro - PO 10 mg DAILY BEVERLY Administration Gabapentin 300 mg 04/12/17 22:00 04/13/17 21:47 Neurontin - PO 300 mg BID BEVERLY Administration Guaifenesin 600 mg 04/12/17 22:00 04/13/17 21:46 Mucinex - PO 600 mg BID BEVERLY Administration Sodium Chloride 1,000 mls @ 100 mls/hr 04/12/17 15:45 04/13/17 06:08 Normal Saline - IV 100 mls/hr ASDIR BEVERLY Administration Piperacillin Sod/Tazobactam 50 mls @ 100 mls/hr 04/12/17 21:15 04/14/17 02:37 Sod 3.375 gm/ Dextrose IVPB 100 mls/hr Q8H-IV BEVERLY Administration Protocol Levothyroxine Sodium 75 mcg 04/13/17 07:00 04/14/17 06:13 Synthroid - PO 75 mcg DAILY@0700 BEVERLY Administration Loratadine 10 mg 04/13/17 10:00 04/13/17 10:34 Claritin - PO 10 mg DAILY BEVERLY Administration Memantine 10 mg 04/12/17 22:00 04/13/17 21:47 Namenda - PO 10 mg BID BEVERLY Administration Multivitamins/Minerals 1 each 04/13/17 10:00 04/13/17 10:34 Theragran-M PO 1 each DAILY BEVERLY Administration Mycophenolate Mofetil 500 mg 04/12/17 15:45 04/13/17 10:34 Cellcept - PO 500 mg DAILY BEVERLY Administration Polyethylene Glycol 17 gm 04/13/17 10:00 04/13/17 10:35 Miralax (For Daily Use) - PO 17 gm DAILY BEVERLY Administration Potassium Phos/Sodium Phos 1 packet 04/14/17 10:00 Phos-Nak Packet - PO BID BEVERLY Prednisone 15 mg 04/12/17 15:45 04/13/17 10:33 Deltasone - PO 15 mg DAILY BEVERLY Administration Ranitidine HCl 150 mg 04/12/17 22:00 04/13/17 21:49 Zantac - PO 150 mg BID BEVERLY Administration Senna 2 tab 04/12/17 22:00 04/13/17 21:47 Senna - PO 2 tab HS BEVERLY Administration Solifenacin 5 mg 04/13/17 10:00 04/13/17 10:34 Vesicare - PO 5 mg DAILY BEVERLY Administration Tiotropium [place] 1 puff 04/13/17 10:00 04/13/17 10:34 Spiriva - IH 1 inh DAILY BEVERLY Administration ASSESSMENT/PLAN: 86F w/ hx of CAD, COPD/asthma on home O2, Alzheimer's dementia, pulmonary lymphoma s/p lobectomy, HTN, HLD, GERD, hypothyroidism, 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 #Sepsis: -Improving WBCs, Afebrile, no more tachycardia -ID on board, day 3 on zosyn -Pulmonary on board, Dr. Moss saw -Urine cx prelim grew Lactose Fermenting Neg Bacilli pending final -f/u Bcx- no growth -sputum cx - - Urine legionella and strep pneumo- negative - flu swab- negative - day 3 on AB* zosyn, - Continue -duonebs q4h PRN, APAP for fever/pain, O2 via NC (95%) #Fall- -likely 2/2 presyncope in setting of sepsis -hip XR negative for acute fracture -CT head negative for acute brain bleed -fall precautions #Electrolytes: replete NaKphosh packet bid -monitor #CAD -continue ASA 81 mg daily #COPD/Asthma -continue spiriva, - symbicort, - duonebs PRN #Alzheimer dementia -continue donepezil #HTN -continue cardizem #HLD -continue lipitor #Hypothyroidism -continue synthroid #Overactive Bladder -continue oxybutynin #Blas's granulomatosis -continue prednisone and mycophenalate mofetil #Anxiety/Depression -continue xanax and lexapro #GERD -zantac #Constipation -continue senna, colace, and miralax #FEN/PPx -K repleted -low-sodium diet -zantac -lovenox 40 Visit type - Emergency Visit Emergency Visit: Yes ED Registration Date: 04/12/17 Care time: The patient presented to the Emergency Department on the above date and was hospitalized for further evaluation of their emergent condition. - New Patient This patient is new to me today: No - Critical Care Critical Care patient: No - Discharge Referral Referred to [facility] Med P.C.: No
[2017-04-14] MEDS ORDERED: POTASSIUM CHLORIDE TABS 20 MEQ TABLET.ER (FP) PO SCH (10:00)
[2017-04-14] MEDS ORDERED: PIPERACILLIN/TAZOB 3.375 GM 50 ML IVPB SCH (10:00)
[2017-04-14] MEDS ORDERED: PT OWN MED DRAWER 7, Y5N ONE ×3 (10:09→20:15)
[2017-04-14] MEDS: ENOXAPARIN NA (PORCINE) 40 MG/0.4 ML DISP.SYRIN SQ SCH (10:19)
[2017-04-14] MEDS: AMINO ACIDS/PROTEIN HYDROLYS 30 ML LIQUID.PKT PO SCH (10:19)
[2017-04-14] MEDS: GABAPENTIN 300 MG CAPSULE (FP) PO SCH ×2 (10:20→21:45)
[2017-04-14] MEDS: ASPIRIN 81 MG CHEWABLE TABLETS PO SCH (10:20)
[2017-04-14] MEDS: CALCIUM 500MG/VIT-D 200 UNITS COMBO TABLET (FP) PO SCH ×2 (10:20→21:45)
[2017-04-14] MEDS: DONEPEZIL HCL 10 MG TABLET (FP) PO SCH (10:20)
[2017-04-14] MEDS: guaiFENesin 600 MG TABLET.ER (FP) PO SCH ×2 (10:20→21:44)
[2017-04-14] MEDS: MEMANTINE HCL 10 MG TABLET (FP) PO SCH ×2 (10:21→21:44)
[2017-04-14] MEDS: LORATADINE 10 MG TABLET PO SCH (10:21)
[2017-04-14] MEDS: MULTIVITAMINS THER W-MINERALS COMBO TABLET (FP) PO SCH (10:21)
[2017-04-14] MEDS: ESCITALOPRAM OXALATE 10 MG TABLET (FP) PO SCH (10:22)
[2017-04-14] MEDS: DOCUSATE SODIUM 100 MG CAPSULE (FP) PO SCH (10:22)
[2017-04-14] MEDS: MYCOPHENOLATE MOFETIL 500 MG TABLET PO SCH (10:23)
[2017-04-14] MEDS: BUDESONIDE/FORMETEROL FUMARATE 80/4.5 mcg INHALER IH SCH ×2 (10:23→21:46)
[2017-04-14] MEDS: POLYETHYLENE GLYCOL 3350 119 GM BTL PO SCH (10:23)
[2017-04-14] MEDS: TIOTROPIUM BROMIDE 18 MCG/INH (DEVICE W/ 5 CAPSULES) IH SCH (10:23)
[2017-04-14] MEDS: SODIUM CHLORIDE 1,000 ML IV SCH ×2 (11:05→16:50)
[2017-04-14] MEDS: NAPH,MB-DB/K PH,MBDB POWDER PACKET PO SCH ×2 (11:06→21:46)
[2017-04-14] MEDS: RANITIDINE HCL 150 MG TABLET (FP) PO SCH ×2 (11:06→21:47)
[2017-04-14] MEDS: SOLIFENACIN SUCCINATE 5 MG TAB (FP) PO SCH (11:06)
[2017-04-14] MEDS: predniSONE 10 MG TABLET (UD) PO SCH (11:07)
--- NOTE | 2017-04-14 11:24 | PN ---
Progress Note, Physician History of Present Illness: Awake, alert Mildly confused Reports dry cough No c/o chest pain/ dyspnea No c/o fever/ chills Temps down- afebrile No urinary tract symptoms - Current Medication List Current Medications: Active Medications Acetaminophen (Tylenol -) 650 mg PO Q4H PRN PRN Reason: FEVER OR PAIN Last Admin: 04/12/17 18:29 Dose: 650 mg Albuterol/Ipratropium (Duoneb -) 1 amp NEB Q4H PRN PRN Reason: SHORTNESS OF BREATH Alprazolam (Xanax -) 0.25 mg PO TID [facility] Last Admin: 04/14/17 06:13 Dose: 0.25 mg Amino Acids (Prosource No Carb Liquid Pkt) 30 ml PO DAILY [facility] Last Admin: 04/14/17 10:19 Dose: 30 ml Aspirin (Asa -) 81 mg PO DAILY [facility] Last Admin: 04/14/17 10:20 Dose: 81 mg Atorvastatin Calcium (Lipitor -) 10 mg PO HS [facility] Last Admin: 04/13/17 21:46 Dose: 10 mg Budesonide/Formoterol Fumarate (Symbicort 80/4.5mcg -) 2 puff IH BID [facility] Last Admin: 04/14/17 10:23 Dose: 2 puff Calcium Carbonate/Cholecalciferol (Os-Juan 500+D -) 1 tab PO BID [facility] Last Admin: 04/14/17 10:20 Dose: 1 tab Diltiazem HCl (Cardizem Cd -) 240 mg PO DAILY [facility] Last Admin: 04/14/17 10:22 Dose: 240 mg Docusate Sodium (Colace -) 200 mg PO DAILY [facility] Last Admin: 04/14/17 10:22 Dose: 200 mg Donepezil HCl (Aricept -) 10 mg PO DAILY [facility] Last Admin: 04/14/17 10:20 Dose: 10 mg Enoxaparin Sodium (Lovenox -) 40 mg SQ DAILY [facility] Last Admin: 04/14/17 10:19 Dose: 40 mg Escitalopram Oxalate (Lexapro -) 10 mg PO DAILY [facility] Last Admin: 04/14/17 10:22 Dose: 10 mg Gabapentin (Neurontin -) 300 mg PO BID [facility] Last Admin: 04/14/17 10:20 Dose: 300 mg Guaifenesin (Mucinex -) 600 mg PO BID [facility] Last Admin: 04/14/17 10:20 Dose: 600 mg Sodium Chloride (Normal Saline -) 1,000 mls @ 100 mls/hr IV ASDIR [facility] Last Admin: 04/14/17 11:05 Dose: 100 mls/hr Piperacillin/Tazobactam/Dextrose (Zosyn 3.375gm Ivpb (Premix)) 50 mls @ 100 mls /hr IVPB Q8H-IV [facility] PRN Reason: Protocol Stop: 04/19/17 10:29 Last Admin: 04/14/17 11:08 Dose: Not Given Levothyroxine Sodium (Synthroid -) 75 mcg PO DAILY@0700 [facility] Last Admin: 04/14/17 06:13 Dose: 75 mcg Loratadine (Claritin -) 10 mg PO DAILY [facility] Last Admin: 04/14/17 10:21 Dose: 10 mg Memantine (Namenda -) 10 mg PO BID [facility] Last Admin: 04/14/17 10:21 Dose: 10 mg Multivitamins/Minerals (Theragran-M) 1 each PO DAILY [facility] Last Admin: 04/14/17 10:21 Dose: 1 each Mycophenolate Mofetil (Cellcept -) 500 mg PO DAILY [facility] Last Admin: 04/14/17 10:23 Dose: 500 mg Polyethylene Glycol (Miralax (For Daily Use) -) 17 gm PO DAILY [facility] Last Admin: 04/14/17 10:23 Dose: 17 gm Potassium Phos/Sodium Phos (Phos-Nak Packet -) 1 packet PO BID [facility] Last Admin: 04/14/17 11:06 Dose: 1 packet Prednisone (Deltasone -) 15 mg PO DAILY [facility] Last Admin: 04/14/17 11:07 Dose: 15 mg Ranitidine HCl (Zantac -) 150 mg PO BID [facility] Last Admin: 04/14/17 11:06 Dose: 150 mg Senna (Senna -) 2 tab PO HS [facility] Last Admin: 04/13/17 21:47 Dose: 2 tab Solifenacin (Vesicare -) 5 mg PO DAILY [facility] Last Admin: 04/14/17 11:06 Dose: 5 mg Tiotropium [place] (Spiriva -) 1 puff IH DAILY [facility] Last Admin: 04/14/17 10:23 Dose: 1 inh - Objective Vital Signs: Vital Signs Temperature 99.1 F 04/14/17 06:00 Pulse Rate 78 04/14/17 11:18 Respiratory Rate 18 04/14/17 06:00 Blood Pressure 145/95 04/14/17 06:00 O2 Sat by Pulse Oximetry (%) 95 04/14/17 11:18 Constitutional: Yes: No Distress Eyes: Yes: Conjunctiva Clear Cardiovascular: Yes: Regular Rate and Rhythm, S1, S2 Respiratory: Yes: Rhonchi Gastrointestinal: Yes: Normal Bowel Sounds, Soft. 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
--- NOTE | 2017-04-14 12:56 | PN ---
Progress Note (short form) - Note Progress Note: PULMONARY APPEARS STABLE VSS/AFEBRILE ANICTERIC SCATTERED RHONCHI S1S2 BS+ NO EDEMA LABS/MEDS/NOTES/IMAGES REVIEWED (1) Anxiety Code(s): F41.9 - ANXIETY DISORDER, UNSPECIFIED (2) Acute exacerbation of COPD with asthma Code(s): J44.1 - CHRONIC OBSTRUCTIVE PULMONARY DISEASE W (ACUTE) EXACERBATION J45.901 - UNSPECIFIED ASTHMA WITH (ACUTE) EXACERBATION (3) COPD with acute exacerbation Code(s): J44.1 - CHRONIC OBSTRUCTIVE PULMONARY DISEASE W (ACUTE) EXACERBATION (4) Chronic bronchitis with acute exacerbation Code(s): J20.9 - ACUTE BRONCHITIS, UNSPECIFIED J42 - UNSPECIFIED CHRONIC BRONCHITIS (5) Coughing Code(s): R05 - COUGH O2 SUPPLEMENTATION PANCULTURE IV FLUIDS NEEDED ANTIBIOTICS BRONCHODILATORS/ DVT/PUD PROPHYLAXSIS David FITZPATRICK MD Problem List - Problems (1) Anxiety Code(s): F41.9 - ANXIETY DISORDER, UNSPECIFIED (2) Acute exacerbation of COPD with asthma Code(s): J44.1 - CHRONIC OBSTRUCTIVE PULMONARY DISEASE W (ACUTE) EXACERBATION [id number] - UNSPECIFIED ASTHMA WITH (ACUTE) EXACERBATION (3) COPD with acute exacerbation Code(s): J44.1 - CHRONIC OBSTRUCTIVE PULMONARY DISEASE W (ACUTE) EXACERBATION (4) Chronic bronchitis with acute exacerbation Code(s): J20.9 - ACUTE BRONCHITIS, UNSPECIFIED J42 - UNSPECIFIED CHRONIC BRONCHITIS (5) Coughing Code(s): R05 - COUGH
[2017-04-14] MEDS: NITROFURANTOIN MACROCRYSTAL 50 MG CAPSULE (FP) PO SCH ×2 (17:46→23:10)
--- NOTE | 2017-04-14 19:57 | PN ---
Teaching Attending Note Name of Resident: Rosa Naylor ATTENDING PHYSICIAN STATEMENT I saw and evaluated the patient. I reviewed the resident's note and discussed the case with the resident. I agree with the resident's findings and plan as documented. SUBJECTIVE: Patient is back to her normal state of mind, but is having difficulty with ambulation. OBJECTIVE: Vital Signs Temperature 98.1 F 04/14/17 14:51 Pulse Rate 89 04/14/17 14:51 Respiratory Rate 21 04/14/17 14:51 Blood Pressure 163/78 04/14/17 14:51 O2 Sat by Pulse Oximetry (%) 95 04/14/17 11:18 CBCD WBC 10.4 K/mm3 (4.0-10.0) H 04/14/17 06:25 RBC 3.33 M/mm3 (3.60-5.2) L 04/14/17 06:25 Hgb 9.8 GM/dL (10.7-15.3) L 04/14/17 06:25 Hct 30.4 % (32.4-45.2) L 04/14/17 06:25 MCV 91.1 fl (80-96) 04/14/17 06:25 MCHC 32.3 g/dl (32.0-36.0) 04/14/17 06:25 RDW 14.7 % (11.6-15.6) 04/14/17 06:25 Plt Count 267 K/MM3 (134-434) 04/14/17 06:25 MPV 8.4 fl (7.5-11.1) 04/14/17 06:25 CMP Sodium 143 mmol/L (136-145) 04/14/17 06:25 Potassium 3.3 mmol/L (3.5-5.1) L 04/14/17 06:25 Chloride 106 mmol/L (98-107) 04/14/17 06:25 Carbon Dioxide 31 mmol/L (21-32) 04/14/17 06:25 Anion Gap 6 (8-16) L 04/14/17 06:25 BUN 26 mg/dL (7-18) H 04/14/17 06:25 Creatinine 0.7 mg/dL (0.55-1.02) 04/14/17 06:25 Creat Clearance w eGFR > 60 (>60) 04/14/17 06:25 Random Glucose 76 mg/dL (74-106) 04/14/17 06:25 Calcium 8.3 mg/dL (8.5-10.1) L 04/14/17 06:25 Total Bilirubin 0.2 mg/dL (0.2-1.0) D 04/14/17 06:25 AST 15 U/L (15-37) D 04/14/17 06:25 ALT 23 U/L (12-78) 04/14/17 06:25 Alkaline Phosphatase 58 U/L (45-117) 04/14/17 06:25 Total Protein 5.4 g/dl (6.4-8.2) L 04/14/17 06:25 Albumin 2.4 g/dl (3.4-5.0) L 04/14/17 06:25 Current Medications Generic Name Dose Route Start Last Admin Trade Name Freq PRN Reason Stop Dose Admin Acetaminophen 650 mg 04/12/17 15:37 04/12/17 18:29 Tylenol - PO 650 mg Q4H PRN Administration FEVER OR PAIN Albuterol/Ipratropium 1 amp 04/12/17 15:36 Duoneb - NEB Q4H PRN SHORTNESS OF BREATH Alprazolam 0.25 mg 04/12/17 15:45 04/14/17 14:50 Xanax - PO 0.25 mg TID [facility] Administration Amino Acids 30 ml 04/13/17 10:00 04/14/17 10:19 Prosource No Carb Liquid Pkt PO 30 ml DAILY [facility] Administration Aspirin 81 mg 04/13/17 10:00 04/14/17 10:20 Asa - PO 81 mg DAILY [facility] Administration Atorvastatin Calcium 10 mg 04/12/17 22:00 04/13/17 21:46 Lipitor - PO 10 mg HS [facility] Administration Budesonide/Formoterol Fumarate 2 puff 04/12/17 22:00 04/14/17 10:23 Symbicort 80/4.5mcg - IH 2 puff BID [facility] Administration Calcium Carbonate/Cholecalciferol 1 tab 04/12/17 22:00 04/14/17 10:20 Os-Juan 500+D - PO 1 tab BID [facility] Administration Diltiazem HCl 240 mg 04/13/17 10:00 04/14/17 10:22 Cardizem Cd - PO 240 mg DAILY [facility] Administration Docusate Sodium 200 mg 04/12/17 15:45 04/14/17 10:22 Colace - PO 200 mg DAILY [facility] Administration Donepezil HCl 10 mg 04/13/17 10:00 04/14/17 10:20 Aricept - PO 10 mg DAILY [facility] Administration Enoxaparin Sodium 40 mg 04/13/17 16:00 04/14/17 10:19 Lovenox - SQ 40 mg DAILY [facility] Administration Escitalopram Oxalate 10 mg 04/12/17 15:45 04/14/17 10:22 Lexapro - PO 10 mg DAILY [facility] Administration Gabapentin 300 mg 04/12/17 22:00 04/14/17 10:20 Neurontin - PO 300 mg BID [facility] Administration Guaifenesin 600 mg 04/12/17 22:00 04/14/17 10:20 Mucinex - PO 600 mg BID [facility] Administration Sodium Chloride 1,000 mls @ 100 mls/hr 04/12/17 15:45 04/14/17 16:50 Normal Saline - IV Not Given ASDIR [facility] Levothyroxine Sodium 75 mcg 04/13/17 07:00 04/14/17 06:13 Synthroid - PO 75 mcg DAILY@0700 [facility] Administration Loratadine 10 mg 04/13/17 10:00 04/14/17 10:21 Claritin - PO 10 mg DAILY [facility] Administration Memantine 10 mg 04/12/17 22:00 04/14/17 10:21 Namenda - PO 10 mg BID [facility] Administration Multivitamins/Minerals 1 each 04/13/17 10:00 04/14/17 10:21 Theragran-M PO 1 each DAILY [facility] Administration Mycophenolate Mofetil 500 mg 04/12/17 15:45 04/14/17 10:23 Cellcept - PO 500 mg DAILY [facility] Administration Nitrofurantoin Macrocrystals 50 mg 04/14/17 18:00 04/14/17 17:46 Macrodantin - PO 50 mg Q6HPO [facility] Administration Polyethylene Glycol 17 gm 04/13/17 10:00 04/14/17 10:23 Miralax (For Daily Use) - PO 17 gm DAILY [facility] Administration Potassium Phos/Sodium Phos 1 packet 04/14/17 10:00 04/14/17 11:06 Phos-Nak Packet - PO 1 packet BID [facility] Administration Prednisone 15 mg 04/12/17 15:45 04/14/17 11:07 Deltasone - PO 15 mg DAILY [facility] Administration Ranitidine HCl 150 mg 04/12/17 22:00 04/14/17 11:06 Zantac - PO 150 mg BID [facility] Administration Senna 2 tab 04/12/17 22:00 04/13/17 21:47 Senna - PO 2 tab HS [facility] Administration Solifenacin 5 mg 04/13/17 10:00 04/14/17 11:06 Vesicare - PO 5 mg DAILY [facility] Administration Tiotropium [place] 1 puff 04/13/17 10:00 04/14/17 10:23 Spiriva - IH 1 inh DAILY [facility] Administration Home Medications Medication Instructions Recorded Aa/Hydrolyzed Collagen, Whey [Lps 30 ml PO DAILY 01/12/17 15-30 Liquid] Acetaminophen [Tylenol] 650 mg PO QID PRN 01/12/17 Albuterol Sulfate [Proventil HFA 1 - 2 inh PO QID PRN 01/12/17 Inhaler -] Alprazolam [Xanax] 0.25 mg PO TID 01/12/17 Aspirin [Children's Aspirin] 81 mg PO DAILY 01/12/17 Atorvastatin Ca [Lipitor] 10 mg PO HS 01/12/17 Calcium Carbonate/Vitamin D3 1 each PO BID 01/12/17 [Oyster Shell 500-Vit D3 200 Tb] Diltiazem Cd [Cardizem Cd -] 240 mg PO DAILY 01/12/17 Docusate Sodium 200 mg PO DAILY 01/12/17 Donepezil HCl [Aricept] 10 mg PO DAILY 01/12/17 Escitalopram Oxalate [Lexapro -] 10 mg PO DAILY 01/12/17 Gabapentin 300 mg PO BID 01/12/17 Levothyroxine [Synthroid -] 75 mcg PO DAILY 01/12/17 Loratadine [Allergy] 10 mg PO DAILY 01/12/17 Memantine HCl [Namenda -] 10 mg PO BID 01/12/17 Multivitamin with Iron [Daily Mabel 1 each PO DAILY 01/12/17 with Iron] Mycophenolate Mofetil [Cellcept] 500 mg PO DAILY 01/12/17 Olopatadine HCl [[place]] 1 ml OU DAILY 01/12/17 Oxybutynin Chloride [Oxybutynin 5 mg PO DAILY 01/12/17 Chloride ER] Polyethylene Glycol 3350 [Miralax 17 gm PO DAILY 01/12/17 119 gm Btl -] Sennosides [Senna] 17.2 mg PO HS 01/12/17 Prednisone 15 mg PO DAILY #20 tablet 01/16/17 Budesonide/Formeterol Fumarate 2 puff IH BID #1 inhaler 01/17/17 [SYMBICORT 80/4.5mcg -] Tiotropium [place] [Spiriva] 18 mcg IH DAILY 03/16/17 Urine Test Results Urine Color Yellow 04/12/17 06:14 Urine Appearance Turbid 04/12/17 06:14 Urine pH 7.0 (5.0-8.0) 04/12/17 06:14 Ur Specific [place] 1.020 (1.005-1.025) 04/12/17 06:14 Urine Protein Negative (NEGATIVE) 04/12/17 06:14 Urine Glucose (UA) Negative (NEGATIVE) 04/12/17 06:14 Urine Ketones Negative (NEGATIVE) 04/12/17 06:14 Urine Blood Negative (NEGATIVE) 04/12/17 06:14 Urine Nitrite Negative (NEGATIVE) 04/12/17 06:14 Urine Bilirubin Negative (NEGATIVE) 04/12/17 06:14 Ur Leukocyte Esterase Negative (NEGATIVE) 04/12/17 06:14 Microbiology 04/12/17 06:14 Urine - Urine Clean Catch Urine Culture - Final Escherichia Coli Esbl Textile Artist 04/12/17 06:35 Urine - Urine Clean Catch Urine Culture - Final Escherichia Coli Esbl Textile Artist 04/12/17 06:03 Blood - Peripheral Venous Blood Culture - Preliminary NO GROWTH OBTAINED AFTER 48 HOURS, INCUBATION TO CONTINUE FOR 3 DAYS. 04/12/17 06:03 Blood - Peripheral Venous Blood Culture - Preliminary NO GROWTH OBTAINED AFTER 48 HOURS, INCUBATION TO CONTINUE FOR 3 DAYS. 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 #s/p Sepsis due to Hcap ,ID/ pulmonary on the case. s/p one dose of vancomycin , continue zosyn, duonebs q4h PRN, APAP for fever/pain, O2 via NC (88%-92%) dependent on 2L oxygen. # HCAP on IV antibiotic continue , Pulmonary on the case , Id on the case. # Acute UTI growing E.coli sensitive to Zosyn continue #Fall possible due to presyncope in setting of sepsis, hip XR negative for acute fracture, fall precautions #hypokalemia replet #CAD continue ASA #Alzheimer dementia continue donepezil #HTN continue cardizem #HLD continue lipitor #Hypothyroidism continue synthroid #Overactive Bladder continue oxybutynin #Yoly's granulomatosis continue prednisone and mycophenalate mofetil #Anxiety/Depression continue xanax and lexapro #GERD zantac #Constipation continue senna, colace, and miralax DVT px: lovenox 40 rehab placement is pending.
[2017-04-14] MEDS: ATORVASTATIN CA 10 MG TABLET (FP) PO SCH (21:44)
[2017-04-14] MEDS: SENNOSIDES 8.6MG TABLET (FP) PO SCH (21:46)
[2017-04-14] MEDS: ALBUTEROL SO4 2.5/IPRATROPIUM 0.5 INH SOL 3 ML VIAL.NEB. NEB PRN (23:00)
[2017-04-15] MEDS ORDERED: amLODIPine BESYLATE 10 MG TABLET (FP) PO ONE (00:04)
[2017-04-15] MEDS: ALPRAZolam 0.25 MG TABLET PO SCH ×3 (06:22→21:45)
[2017-04-15] MEDS: NITROFURANTOIN MACROCRYSTAL 50 MG CAPSULE (FP) PO SCH ×4 (06:22→23:27)
[2017-04-15] MEDS: LEVOTHYROXINE NA 75 MCG TABLET (FP) PO SCH (06:22)
[2017-04-15 07:58] LABS: BASOPHIL 0.3 % (0-2.0); EOSINOPHIL 1.2 % (0-4.5); MCH 29.1 pg (25.7-33.7); MEAN CELL VOLUME 90.8 fl (80-96); MEAN PLT VOLUME 8.4 fl (7.5-11.1); NEUTROPHILS 66.5 % (42.8-82.8); PLATELET COUNT 302 K/MM3 (134-434); RDW 14.9 % (11.6-15.6); WHITE BLOOD COUNT 10.4 K/mm3 (4.0-10.0)
[2017-04-15 08:45] LABS: ANION GAP 9 (8-16); CALCIUM 8.9 mg/dL (8.5-10.1); CO2 32 mmol/L (21-32); CREATININE 0.6 mg/dL (0.55-1.02); GLUCOSE,RANDOM 89 mg/dL (74-106); MAGNESIUM 2.2 mg/dL (1.8-2.4); PHOSPHOROUS 1.8 mg/dL (2.5-4.9)
--- NOTE | 2017-04-15 09:57 | PN ---
Progress Note, Physician History of Present Illness: Awake alert Mildly confused Offers no complaints Denies chest pain/ dyspnea/ cough No dysuria Afebrile - Current Medication List Current Medications: Active Medications Acetaminophen (Tylenol -) 650 mg PO Q4H PRN PRN Reason: FEVER OR PAIN Last Admin: 04/12/17 18:29 Dose: 650 mg Albuterol/Ipratropium (Duoneb -) 1 amp NEB Q4H PRN PRN Reason: SHORTNESS OF BREATH Last Admin: 04/14/17 23:00 Dose: 1 amp Alprazolam (Xanax -) 0.25 mg PO TID [facility] Last Admin: 04/15/17 06:22 Dose: 0.25 mg Amino Acids (Prosource No Carb Liquid Pkt) 30 ml PO DAILY [facility] Last Admin: 04/14/17 10:19 Dose: 30 ml Aspirin (Asa -) 81 mg PO DAILY [facility] Last Admin: 04/14/17 10:20 Dose: 81 mg Atorvastatin Calcium (Lipitor -) 10 mg PO HS [facility] Last Admin: 04/14/17 21:44 Dose: 10 mg Budesonide/Formoterol Fumarate (Symbicort 80/4.5mcg -) 2 puff IH BID [facility] Last Admin: 04/14/17 21:46 Dose: 2 puff Calcium Carbonate/Cholecalciferol (Os-Juan 500+D -) 1 tab PO BID [facility] Last Admin: 04/14/17 21:45 Dose: 1 tab Diltiazem HCl (Cardizem Cd -) 240 mg PO DAILY [facility] Last Admin: 04/14/17 10:22 Dose: 240 mg Docusate Sodium (Colace -) 200 mg PO DAILY [facility] Last Admin: 04/14/17 10:22 Dose: 200 mg Donepezil HCl (Aricept -) 10 mg PO DAILY [facility] Last Admin: 04/14/17 10:20 Dose: 10 mg Enoxaparin Sodium (Lovenox -) 40 mg SQ DAILY [facility] Last Admin: 04/14/17 10:19 Dose: 40 mg Escitalopram Oxalate (Lexapro -) 10 mg PO DAILY [facility] Last Admin: 04/14/17 10:22 Dose: 10 mg Gabapentin (Neurontin -) 300 mg PO BID [facility] Last Admin: 04/14/17 21:45 Dose: 300 mg Guaifenesin (Mucinex -) 600 mg PO BID [facility] Last Admin: 04/14/17 21:44 Dose: 600 mg Sodium Chloride (Normal Saline -) 1,000 mls @ 100 mls/hr IV ASDIR [facility] Last Admin: 04/14/17 16:50 Dose: Not Given Levothyroxine Sodium (Synthroid -) 75 mcg PO DAILY@0700 [facility] Last Admin: 04/15/17 06:22 Dose: 75 mcg Loratadine (Claritin -) 10 mg PO DAILY [facility] Last Admin: 04/14/17 10:21 Dose: 10 mg Memantine (Namenda -) 10 mg PO BID [facility] Last Admin: 04/14/17 21:44 Dose: 10 mg Multivitamins/Minerals (Theragran-M) 1 each PO DAILY [facility] Last Admin: 04/14/17 10:21 Dose: 1 each Mycophenolate Mofetil (Cellcept -) 500 mg PO DAILY [facility] Last Admin: 04/14/17 10:23 Dose: 500 mg Nitrofurantoin Macrocrystals (Macrodantin -) 50 mg PO Q6HPO [facility] Last Admin: 04/15/17 06:22 Dose: 50 mg Polyethylene Glycol (Miralax (For Daily Use) -) 17 gm PO DAILY [facility] Last Admin: 04/14/17 10:23 Dose: 17 gm Potassium Phos/Sodium Phos (Phos-Nak Packet -) 1 packet PO BID [facility] Last Admin: 04/14/17 21:46 Dose: 1 packet Prednisone (Deltasone -) 15 mg PO DAILY [facility] Last Admin: 04/14/17 11:07 Dose: 15 mg Ranitidine HCl (Zantac -) 150 mg PO BID [facility] Last Admin: 04/14/17 21:47 Dose: 150 mg Senna (Senna -) 2 tab PO HS [facility] Last Admin: 04/14/17 21:46 Dose: 2 tab Solifenacin (Vesicare -) 5 mg PO DAILY [facility] Last Admin: 04/14/17 11:06 Dose: 5 mg Tiotropium [place] (Spiriva -) 1 puff IH DAILY [facility] Last Admin: 04/14/17 10:23 Dose: 1 inh - Objective Vital Signs: Vital Signs Temperature 97.5 F L 04/15/17 06:00 Pulse Rate 92 H 04/15/17 06:00 Respiratory Rate 22 04/15/17 06:00 Blood Pressure 165/90 04/15/17 06:00 O2 Sat by Pulse Oximetry (%) 98 04/14/17 21:00 Constitutional: Yes: No Distress Eyes: Yes: Conjunctiva Clear Neck: Yes: Thyromegaly Cardiovascular: Yes: S1, S2 Respiratory: Yes: CTA Bilaterally Gastrointestinal: Yes: Normal Bowel Sounds, Soft. 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
[2017-04-15] MEDS ORDERED: PT OWN MED DRAWER 7, Y5N ONE ×2 (10:04→13:49)
[2017-04-15] MEDS: RANITIDINE HCL 150 MG TABLET (FP) PO SCH ×2 (10:12→21:45)
[2017-04-15] MEDS: DOCUSATE SODIUM 100 MG CAPSULE (FP) PO SCH (10:12)
[2017-04-15] MEDS: GABAPENTIN 300 MG CAPSULE (FP) PO SCH ×2 (10:13→21:44)
[2017-04-15] MEDS: predniSONE 10 MG TABLET (UD) PO SCH (10:13)
[2017-04-15] MEDS: LORATADINE 10 MG TABLET PO SCH (10:14)
[2017-04-15] MEDS: ESCITALOPRAM OXALATE 10 MG TABLET (FP) PO SCH (10:14)
[2017-04-15] MEDS: ASPIRIN 81 MG CHEWABLE TABLETS PO SCH (10:14)
[2017-04-15] MEDS: guaiFENesin 600 MG TABLET.ER (FP) PO SCH ×2 (10:14→21:44)
[2017-04-15] MEDS: MEMANTINE HCL 10 MG TABLET (FP) PO SCH ×2 (10:15→21:44)
[2017-04-15] MEDS: CALCIUM 500MG/VIT-D 200 UNITS COMBO TABLET (FP) PO SCH ×2 (10:15→21:45)
[2017-04-15] MEDS: MULTIVITAMINS THER W-MINERALS COMBO TABLET (FP) PO SCH (10:15)
[2017-04-15] MEDS: DONEPEZIL HCL 10 MG TABLET (FP) PO SCH (10:16)
[2017-04-15] MEDS: SOLIFENACIN SUCCINATE 5 MG TAB (FP) PO SCH (10:16)
[2017-04-15] MEDS: ENOXAPARIN NA (PORCINE) 40 MG/0.4 ML DISP.SYRIN SQ SCH (10:17)
[2017-04-15] MEDS: AMINO ACIDS/PROTEIN HYDROLYS 30 ML LIQUID.PKT PO SCH (10:17)
[2017-04-15] MEDS: MYCOPHENOLATE MOFETIL 500 MG TABLET PO SCH (10:17)
[2017-04-15] MEDS: POLYETHYLENE GLYCOL 3350 119 GM BTL PO SCH (10:17)
[2017-04-15] MEDS: NAPH,MB-DB/K PH,MBDB POWDER PACKET PO SCH ×2 (10:17→21:46)
[2017-04-15] MEDS: BUDESONIDE/FORMETEROL FUMARATE 80/4.5 mcg INHALER IH SCH ×2 (10:19→21:45)
[2017-04-15] MEDS: TIOTROPIUM BROMIDE 18 MCG/INH (DEVICE W/ 5 CAPSULES) IH SCH (10:19)
--- NOTE | 2017-04-15 11:38 | PN ---
Progress Note (short form) - Note Progress Note: Sitting in a wheelchair in the hallway. Awake and alert but mildly confused. Reports some cough. Denies CP or SOB. Intake & Output 04/12/17 04/13/17 04/14/17 04/15/17 23:59 23:59 23:59 23:59 Intake Total 50 3225 1940 1320 Balance 50 3225 1940 1320 Weight 145 lb 0.004 oz Last Vital Signs Temp Pulse Resp BP Pulse Ox 98.4 F 88 22 147/85 97 04/15/17 10:00 04/15/17 10:00 04/15/17 10:00 04/15/17 10:00 04/15/17 09:00 Active Medications Acetaminophen (Tylenol -) 650 mg PO Q4H PRN PRN Reason: FEVER OR PAIN Last Admin: 04/12/17 18:29 Dose: 650 mg Albuterol/Ipratropium (Duoneb -) 1 amp NEB Q4H PRN PRN Reason: SHORTNESS OF BREATH Last Admin: 04/14/17 23:00 Dose: 1 amp Alprazolam (Xanax -) 0.25 mg PO TID [facility] Last Admin: 04/15/17 06:22 Dose: 0.25 mg Amino Acids (Prosource No Carb Liquid Pkt) 30 ml PO DAILY [facility] Last Admin: 04/15/17 10:17 Dose: 30 ml Aspirin (Asa -) 81 mg PO DAILY [facility] Last Admin: 04/15/17 10:14 Dose: 81 mg Atorvastatin Calcium (Lipitor -) 10 mg PO HS [facility] Last Admin: 04/14/17 21:44 Dose: 10 mg Budesonide/Formoterol Fumarate (Symbicort 80/4.5mcg -) 2 puff IH BID [facility] Last Admin: 04/15/17 10:19 Dose: 2 puff Calcium Carbonate/Cholecalciferol (Os-Juan 500+D -) 1 tab PO BID [facility] Last Admin: 04/15/17 10:15 Dose: 1 tab Diltiazem HCl (Cardizem Cd -) 240 mg PO DAILY [facility] Last Admin: 04/15/17 10:15 Dose: 240 mg Docusate Sodium (Colace -) 200 mg PO DAILY [facility] Last Admin: 04/15/17 10:12 Dose: Not Given Donepezil HCl (Aricept -) 10 mg PO DAILY [facility] Last Admin: 04/15/17 10:16 Dose: 10 mg Enoxaparin Sodium (Lovenox -) 40 mg SQ DAILY [facility] Last Admin: 04/15/17 10:17 Dose: 40 mg Escitalopram Oxalate (Lexapro -) 10 mg PO DAILY [facility] Last Admin: 04/15/17 10:14 Dose: 10 mg Gabapentin (Neurontin -) 300 mg PO BID [facility] Last Admin: 04/15/17 10:13 Dose: 300 mg Guaifenesin (Mucinex -) 600 mg PO BID [facility] Last Admin: 04/15/17 10:14 Dose: 600 mg Sodium Chloride (Normal Saline -) 1,000 mls @ 100 mls/hr IV ASDIR [facility] Last Admin: 04/14/17 16:50 Dose: Not Given Levothyroxine Sodium (Synthroid -) 75 mcg PO DAILY@0700 [facility] Last Admin: 04/15/17 06:22 Dose: 75 mcg Loratadine (Claritin -) 10 mg PO DAILY [facility] Last Admin: 04/15/17 10:14 Dose: 10 mg Memantine (Namenda -) 10 mg PO BID [facility] Last Admin: 04/15/17 10:15 Dose: 10 mg Multivitamins/Minerals (Theragran-M) 1 each PO DAILY [facility] Last Admin: 04/15/17 10:15 Dose: 1 each Mycophenolate Mofetil (Cellcept -) 500 mg PO DAILY [facility] Last Admin: 04/15/17 10:17 Dose: 500 mg Nitrofurantoin Macrocrystals (Macrodantin -) 50 mg PO Q6HPO [facility] Last Admin: 04/15/17 06:22 Dose: 50 mg Polyethylene Glycol (Miralax (For Daily Use) -) 17 gm PO DAILY [facility] Last Admin: 04/15/17 10:17 Dose: Not Given Potassium Phos/Sodium Phos (Phos-Nak Packet -) 1 packet PO BID [facility] Last Admin: 04/15/17 10:17 Dose: 1 packet Prednisone (Deltasone -) 15 mg PO DAILY [facility] Last Admin: 04/15/17 10:13 Dose: 15 mg Ranitidine HCl (Zantac -) 150 mg PO BID [facility] Last Admin: 04/15/17 10:12 Dose: 150 mg Senna (Senna -) 2 tab PO HS [facility] Last Admin: 04/14/17 21:46 Dose: 2 tab Solifenacin (Vesicare -) 5 mg PO DAILY [facility] Last Admin: 04/15/17 10:16 Dose: 5 mg Tiotropium [place] (Spiriva -) 1 puff IH DAILY [facility] Last Admin: 04/15/17 10:19 Dose: 1 inh Constitutional: Yes: NAD, Thin Eyes: Yes: Conjunctiva Clear HENT: Yes: Normocephalic Neck: Yes: Trachea Midline Cardiovascular: Yes: Tachycardia, S1, S2 Respiratory: Yes: Rhonchi Gastrointestinal: Yes: Soft Edema: No Labs: Laboratory Results - last 24 hr 04/15/17 04/15/17 06:00 06:00 WBC 10.4 H RBC 3.67 Hgb 10.7 Hct 33.3 MCV 90.8 MCH 29.1 MCHC 32.0 RDW 14.9 Plt Count 302 MPV 8.4 Neutrophils % 66.5 Lymphocytes % 18.6 Monocytes % 13.4 H Eosinophils % 1.2 Basophils % 0.3 Sodium 143 Potassium 3.0 L Chloride 102 Carbon Dioxide 32 Anion Gap 9 BUN 11 D Creatinine 0.6 Random Glucose 89 Calcium 8.9 Phosphorus 1.8 L D Magnesium 2.2 Problem List - Problems (1) Anxiety Code(s): F41.9 - ANXIETY DISORDER, UNSPECIFIED (2) Acute exacerbation of COPD with asthma Code(s): J44.1 - CHRONIC OBSTRUCTIVE PULMONARY DISEASE W (ACUTE) EXACERBATION J45.901 - UNSPECIFIED ASTHMA WITH (ACUTE) EXACERBATION (3) COPD with acute exacerbation Code(s): J44.1 - CHRONIC OBSTRUCTIVE PULMONARY DISEASE W (ACUTE) EXACERBATION (4) Chronic bronchitis with acute exacerbation Code(s): J20.9 - ACUTE BRONCHITIS, UNSPECIFIED J42 - UNSPECIFIED CHRONIC BRONCHITIS (5) Coughing Code(s): R05 - COUGH Assessment/Plan O2 SUPPLEMENTATION NEEDED ABX COVERAGE PER ID BRONCHODILATORS DAILY PREDNISONE SPIRIVA LOVENOX DR COYNE
[2017-04-15] MEDS: SODIUM CHLORIDE 1,000 ML IV SCH ×2 (13:49→23:27)
--- NOTE | 2017-04-15 14:27 | PN ---
Progress Note, Physician - Current Medication List Current Medications: Active Medications Acetaminophen (Tylenol -) 650 mg PO Q4H PRN PRN Reason: FEVER OR PAIN Last Admin: 04/12/17 18:29 Dose: 650 mg Albuterol/Ipratropium (Duoneb -) 1 amp NEB Q4H PRN PRN Reason: SHORTNESS OF BREATH Last Admin: 04/14/17 23:00 Dose: 1 amp Alprazolam (Xanax -) 0.25 mg PO TID [facility] Last Admin: 04/15/17 13:50 Dose: 0.25 mg Amino Acids (Prosource No Carb Liquid Pkt) 30 ml PO DAILY [facility] Last Admin: 04/15/17 10:17 Dose: 30 ml Aspirin (Asa -) 81 mg PO DAILY [facility] Last Admin: 04/15/17 10:14 Dose: 81 mg Atorvastatin Calcium (Lipitor -) 10 mg PO HS [facility] Last Admin: 04/14/17 21:44 Dose: 10 mg Budesonide/Formoterol Fumarate (Symbicort 80/4.5mcg -) 2 puff IH BID [facility] Last Admin: 04/15/17 10:19 Dose: 2 puff Calcium Carbonate/Cholecalciferol (Os-Juan 500+D -) 1 tab PO BID [facility] Last Admin: 04/15/17 10:15 Dose: 1 tab Diltiazem HCl (Cardizem Cd -) 240 mg PO DAILY [facility] Last Admin: 04/15/17 10:15 Dose: 240 mg Docusate Sodium (Colace -) 200 mg PO DAILY [facility] Last Admin: 04/15/17 10:12 Dose: Not Given Donepezil HCl (Aricept -) 10 mg PO DAILY [facility] Last Admin: 04/15/17 10:16 Dose: 10 mg Enoxaparin Sodium (Lovenox -) 40 mg SQ DAILY [facility] Last Admin: 04/15/17 10:17 Dose: 40 mg Escitalopram Oxalate (Lexapro -) 10 mg PO DAILY [facility] Last Admin: 04/15/17 10:14 Dose: 10 mg Gabapentin (Neurontin -) 300 mg PO BID [facility] Last Admin: 04/15/17 10:13 Dose: 300 mg Guaifenesin (Mucinex -) 600 mg PO BID [facility] Last Admin: 04/15/17 10:14 Dose: 600 mg Sodium Chloride (Normal Saline -) 1,000 mls @ 100 mls/hr IV ASDIR [facility] Last Admin: 04/15/17 13:49 Dose: 100 mls/hr Levothyroxine Sodium (Synthroid -) 75 mcg PO DAILY@0700 [facility] Last Admin: 04/15/17 06:22 Dose: 75 mcg Loratadine (Claritin -) 10 mg PO DAILY [facility] Last Admin: 04/15/17 10:14 Dose: 10 mg Memantine (Namenda -) 10 mg PO BID [facility] Last Admin: 04/15/17 10:15 Dose: 10 mg Multivitamins/Minerals (Theragran-M) 1 each PO DAILY [facility] Last Admin: 04/15/17 10:15 Dose: 1 each Mycophenolate Mofetil (Cellcept -) 500 mg PO DAILY [facility] Last Admin: 04/15/17 10:17 Dose: 500 mg Nitrofurantoin Macrocrystals (Macrodantin -) 50 mg PO Q6HPO [facility] Last Admin: 04/15/17 12:39 Dose: 50 mg Polyethylene Glycol (Miralax (For Daily Use) -) 17 gm PO DAILY [facility] Last Admin: 04/15/17 10:17 Dose: Not Given Potassium Phos/Sodium Phos (Phos-Nak Packet -) 1 packet PO BID [facility] Last Admin: 04/15/17 10:17 Dose: 1 packet Prednisone (Deltasone -) 15 mg PO DAILY [facility] Last Admin: 04/15/17 10:13 Dose: 15 mg Ranitidine HCl (Zantac -) 150 mg PO BID [facility] Last Admin: 04/15/17 10:12 Dose: 150 mg Senna (Senna -) 2 tab PO HS [facility] Last Admin: 04/14/17 21:46 Dose: 2 tab Solifenacin (Vesicare -) 5 mg PO DAILY [facility] Last Admin: 04/15/17 10:16 Dose: 5 mg Tiotropium [place] (Spiriva -) 1 puff IH DAILY [facility] Last Admin: 04/15/17 10:19 Dose: 1 inh - Objective Vital Signs: Vital Signs Temperature 98.4 F 04/15/17 10:00 Pulse Rate 88 04/15/17 10:00 Respiratory Rate 22 04/15/17 10:00 Blood Pressure 147/85 04/15/17 10:00 O2 Sat by Pulse Oximetry (%) 97 04/15/17 09:00 Constitutional: Yes: Well Nourished, No Distress, Calm Eyes: Yes: WNL, Conjunctiva Clear, EOM Intact HENT: Yes: WNL, Atraumatic, Normocephalic Neck: Yes: WNL, Supple, Trachea Midline Cardiovascular: Yes: WNL, Regular Rate and Rhythm Respiratory: Yes: WNL, Regular, Dullness, On Nasal O2, Rales Gastrointestinal: Yes: WNL, Normal Bowel Sounds, Soft Genitourinary: Yes: WNL Labs: CBC, BMP 04/15/17 06:00 04/15/17 06:00 INR, PTT INR 1.02 (0.82-1.09) 04/12/17 06:03 - ....Imaging Chest X-ray: Report Reviewed, Image Reviewed Problem List - Problems (1) Left lower lobe pneumonia Assessment/Plan: patient is on pipercillin/tazobactam day 4 ID is following up will switch the patient to PO nitrofuontoin 50mg q6hrs Code(s): J18.1 - LOBAR PNEUMONIA, UNSPECIFIED ORGANISM Qualifiers: Pneumonia type: due to unspecified organism Qualified Code(s): J18.1 - Lobar pneumonia, unspecified organism; J18.1 - Lobar pneumonia, unspecified organism; J18.1 - Lobar pneumonia, unspecified organism (2) Acute exacerbation of COPD with asthma Assessment/Plan: c/w albuterol c/w tiotriopium brom[place] c/w guifanacin Code(s): J44.1 - CHRONIC OBSTRUCTIVE PULMONARY DISEASE W (ACUTE) EXACERBATION J45.901 - UNSPECIFIED ASTHMA WITH (ACUTE) EXACERBATION (3) Dementia Assessment/Plan: stable c/w same medical management Code(s): F03.90 - UNSPECIFIED DEMENTIA WITHOUT BEHAVIORAL DISTURBANCE Qualifiers: Dementia type: unspecified type Dementia behavioral disturbance: without behavioral disturbance Qualified Code(s): F03.90 - Unspecified dementia without behavioral disturbance; F03.90 - Unspecified dementia without behavioral disturbance; F03.90 - Unspecified dementia without behavioral disturbance (4) Hypercholesteremia Assessment/Plan: c/w atorvastatin 10mg daily Code(s): E78.0 - PURE HYPERCHOLESTEROLEMIA * DO NOT USE * (5) Hypertension Assessment/Plan: controlled with diet Code(s): I10 - ESSENTIAL (PRIMARY) HYPERTENSION (6) Hypothyroid Assessment/Plan: patient is on levothyroixine Code(s): E03.9 - HYPOTHYROIDISM, UNSPECIFIED
[2017-04-15] MEDS ORDERED: POTASSIUM CHLORIDE ORAL LIQUID 20 MEQ/15 ML PO ONE ×2 (16:05→16:07)
[2017-04-15] MEDS: POTASSIUM CHLORIDE TABS 20 MEQ TABLET.ER (FP) PO SCH ×2 (16:51→18:38)
[2017-04-15] MEDS: ACETAMINOPHEN 325 MG TABLET (FP) PO PRN (20:05)
[2017-04-15] MEDS ORDERED: amLODIPine BESYLATE 5 MG TABLET (FP) PO ONE (21:09)
[2017-04-15] MEDS: ATORVASTATIN CA 10 MG TABLET (FP) PO SCH (21:44)
[2017-04-15] MEDS: SENNOSIDES 8.6MG TABLET (FP) PO SCH (21:45)
[2017-04-15] MEDS: ALBUTEROL SO4 2.5/IPRATROPIUM 0.5 INH SOL 3 ML VIAL.NEB. NEB PRN (22:09)
[2017-04-16] MEDS: LEVOTHYROXINE NA 75 MCG TABLET (FP) PO SCH (06:09)
[2017-04-16] MEDS: ALPRAZolam 0.25 MG TABLET PO SCH ×3 (06:09→21:42)
[2017-04-16] MEDS: NITROFURANTOIN MACROCRYSTAL 50 MG CAPSULE (FP) PO SCH ×4 (06:09→23:43)
[2017-04-16 09:02] LABS: BASOPHIL 0.6 % (0-2.0); EOSINOPHIL 1.4 % (0-4.5); MCH 28.9 pg (25.7-33.7); MCHC 31.8 g/dl (32.0-36.0); MEAN CELL VOLUME 90.8 fl (80-96); MEAN PLT VOLUME 8.2 fl (7.5-11.1); NEUTROPHILS 63.4 % (42.8-82.8); PLATELET COUNT 298 K/MM3 (134-434); RDW 14.7 % (11.6-15.6); WHITE BLOOD COUNT 10.3 K/mm3 (4.0-10.0)
[2017-04-16 09:33] LABS: ALBUMIN 2.6 g/dl (3.4-5.0); ANION GAP 6 (8-16); CALCIUM 8.4 mg/dL (8.5-10.1); CO2 32 mmol/L (21-32); GLUCOSE,RANDOM 114 mg/dL (74-106); SGPT/ALT 25 U/L (12-78)
[2017-04-16] MEDS ORDERED: PT OWN MED DRAWER 7, Y5N ONE ×2 (09:33→11:32)
[2017-04-16 09:36] LABS: ALK PHOS 63 U/L (45-117); BILIRUBIN,TOTAL 0.3 mg/dL (0.2-1.0); CREATININE 0.6 mg/dL (0.55-1.02); SGOT/AST 15 U/L (15-37); TOT PROT 5.7 g/dl (6.4-8.2)
[2017-04-16] MEDS: AMINO ACIDS/PROTEIN HYDROLYS 30 ML LIQUID.PKT PO SCH (09:39)
[2017-04-16] MEDS: LORATADINE 10 MG TABLET PO SCH (09:40)
[2017-04-16] MEDS: DOCUSATE SODIUM 100 MG CAPSULE (FP) PO SCH (09:40)
[2017-04-16] MEDS: DONEPEZIL HCL 10 MG TABLET (FP) PO SCH (09:40)
[2017-04-16] MEDS: MEMANTINE HCL 10 MG TABLET (FP) PO SCH ×2 (09:40→21:42)
[2017-04-16] MEDS: MULTIVITAMINS THER W-MINERALS COMBO TABLET (FP) PO SCH (09:43)
[2017-04-16] MEDS: CALCIUM 500MG/VIT-D 200 UNITS COMBO TABLET (FP) PO SCH ×2 (09:43→21:42)
[2017-04-16] MEDS: ASPIRIN 81 MG CHEWABLE TABLETS PO SCH (09:43)
[2017-04-16] MEDS: ESCITALOPRAM OXALATE 10 MG TABLET (FP) PO SCH (09:43)
[2017-04-16] MEDS: GABAPENTIN 300 MG CAPSULE (FP) PO SCH ×2 (09:43→21:42)
[2017-04-16] MEDS: guaiFENesin 600 MG TABLET.ER (FP) PO SCH ×2 (09:44→21:42)
[2017-04-16] MEDS: ENOXAPARIN NA (PORCINE) 40 MG/0.4 ML DISP.SYRIN SQ SCH (09:44)
[2017-04-16] MEDS: TIOTROPIUM BROMIDE 18 MCG/INH (DEVICE W/ 5 CAPSULES) IH SCH (09:45)
[2017-04-16] MEDS: SODIUM CHLORIDE 1,000 ML IV SCH ×3 (09:45→21:43)
[2017-04-16] MEDS: BUDESONIDE/FORMETEROL FUMARATE 80/4.5 mcg INHALER IH SCH ×2 (09:45→21:43)
[2017-04-16] MEDS: predniSONE 10 MG TABLET (UD) PO SCH (09:52)
[2017-04-16] MEDS: MYCOPHENOLATE MOFETIL 500 MG TABLET PO SCH (09:52)
[2017-04-16] MEDS: NAPH,MB-DB/K PH,MBDB POWDER PACKET PO SCH ×2 (09:52→21:42)
[2017-04-16] MEDS: RANITIDINE HCL 150 MG TABLET (FP) PO SCH ×2 (09:52→21:42)
[2017-04-16] MEDS ORDERED: POTASSIUM CHLORIDE TABS 20 MEQ TABLET.ER (FP) PO ONE (10:00)
[2017-04-16] MEDS: SOLIFENACIN SUCCINATE 5 MG TAB (FP) PO SCH (10:00)
[2017-04-16] MEDS: POLYETHYLENE GLYCOL 3350 119 GM BTL PO SCH (10:11)
--- NOTE | 2017-04-16 11:33 | PN ---
Progress Note (short form) - Note Progress Note: Resting in NAD. Reports some dry cough. Denies CP or SOB. Intake & Output 04/13/17 04/14/17 04/15/17 04/16/17 23:59 23:59 23:59 23:59 Intake Total 3225 1940 1835 1400 Balance 3225 1940 1835 1400 Last Vital Signs Temp Pulse Resp BP Pulse Ox 98.0 F 90 20 135/82 97 04/16/17 10:00 04/16/17 10:00 04/16/17 10:00 04/16/17 10:00 04/16/17 09:00 Active Medications Acetaminophen (Tylenol -) 650 mg PO Q4H PRN PRN Reason: FEVER OR PAIN Last Admin: 04/15/17 20:05 Dose: 650 mg Albuterol/Ipratropium (Duoneb -) 1 amp NEB Q4H PRN PRN Reason: SHORTNESS OF BREATH Last Admin: 04/15/17 22:09 Dose: 1 amp Alprazolam (Xanax -) 0.25 mg PO TID [facility] Last Admin: 04/16/17 06:09 Dose: 0.25 mg Amino Acids (Prosource No Carb Liquid Pkt) 30 ml PO DAILY [facility] Last Admin: 04/16/17 09:39 Dose: 30 ml Aspirin (Asa -) 81 mg PO DAILY [facility] Last Admin: 04/16/17 09:43 Dose: 81 mg Atorvastatin Calcium (Lipitor -) 10 mg PO HS [facility] Last Admin: 04/15/17 21:44 Dose: 10 mg Budesonide/Formoterol Fumarate (Symbicort 80/4.5mcg -) 2 puff IH BID [facility] Last Admin: 04/16/17 09:45 Dose: 2 puff Calcium Carbonate/Cholecalciferol (Os-Juan 500+D -) 1 tab PO BID [facility] Last Admin: 04/16/17 09:43 Dose: 1 tab Diltiazem HCl (Cardizem Cd -) 240 mg PO DAILY [facility] Last Admin: 04/16/17 09:40 Dose: 240 mg Docusate Sodium (Colace -) 200 mg PO DAILY [facility] Last Admin: 04/16/17 09:40 Dose: 200 mg Donepezil HCl (Aricept -) 10 mg PO DAILY [facility] Last Admin: 04/16/17 09:40 Dose: 10 mg Enoxaparin Sodium (Lovenox -) 40 mg SQ DAILY [facility] Last Admin: 04/16/17 09:44 Dose: 40 mg Escitalopram Oxalate (Lexapro -) 10 mg PO DAILY [facility] Last Admin: 04/16/17 09:43 Dose: 10 mg Gabapentin (Neurontin -) 300 mg PO BID [facility] Last Admin: 04/16/17 09:43 Dose: 300 mg Guaifenesin (Mucinex -) 600 mg PO BID [facility] Last Admin: 04/16/17 09:44 Dose: 600 mg Sodium Chloride (Normal Saline -) 1,000 mls @ 100 mls/hr IV ASDIR [facility] Last Admin: 04/16/17 09:45 Dose: 100 mls/hr Levothyroxine Sodium (Synthroid -) 75 mcg PO DAILY@0700 [facility] Last Admin: 04/16/17 06:09 Dose: 75 mcg Loratadine (Claritin -) 10 mg PO DAILY [facility] Last Admin: 04/16/17 09:40 Dose: 10 mg Memantine (Namenda -) 10 mg PO BID [facility] Last Admin: 04/16/17 09:40 Dose: 10 mg Multivitamins/Minerals (Theragran-M) 1 each PO DAILY [facility] Last Admin: 04/16/17 09:43 Dose: 1 each Mycophenolate Mofetil (Cellcept -) 500 mg PO DAILY [facility] Last Admin: 04/16/17 09:52 Dose: 500 mg Nitrofurantoin Macrocrystals (Macrodantin -) 50 mg PO Q6HPO [facility] Last Admin: 04/16/17 06:09 Dose: 50 mg Polyethylene Glycol (Miralax (For Daily Use) -) 17 gm PO DAILY [facility] Last Admin: 04/16/17 10:11 Dose: 17 gm Potassium Chloride (K-Dur -) 20 meq PO DAILY [facility] Potassium Phos/Sodium Phos (Phos-Nak Packet -) 1 packet PO BID [facility] Last Admin: 04/16/17 09:52 Dose: 1 packet Prednisone (Deltasone -) 15 mg PO DAILY [facility] Last Admin: 04/16/17 09:52 Dose: 15 mg Ranitidine HCl (Zantac -) 150 mg PO BID [facility] Last Admin: 04/16/17 09:52 Dose: 150 mg Senna (Senna -) 2 tab PO HS [facility] Last Admin: 04/15/17 21:45 Dose: 2 tab Solifenacin (Vesicare -) 5 mg PO DAILY [facility] Last Admin: 04/16/17 10:00 Dose: 5 mg Tiotropium [place] (Spiriva -) 1 puff IH DAILY [facility] Last Admin: 04/16/17 09:45 Dose: 1 inh Constitutional: Yes: NAD, Thin Eyes: Yes: Conjunctiva Clear HENT: Yes: Normocephalic Neck: Yes: Trachea Midline Cardiovascular: Yes: Tachycardia, S1, S2 Respiratory: Yes: Rhonchi Gastrointestinal: Yes: Soft Edema: No Labs: Laboratory Results - last 24 hr 04/16/17 04/16/17 08:00 08:00 WBC 10.3 H RBC 3.61 Hgb 10.4 L Hct 32.8 MCV 90.8 MCH 28.9 MCHC 31.8 L RDW 14.7 Plt Count 298 MPV 8.2 Neutrophils % 63.4 Lymphocytes % 19.7 Monocytes % 14.9 H Eosinophils % 1.4 Basophils % 0.6 Sodium 145 Potassium 3.3 L Chloride 107 Carbon Dioxide 32 Anion Gap 6 L BUN 9 Creatinine 0.6 Creat Clearance w eGFR > 60 Random Glucose 114 H D Calcium 8.4 L Total Bilirubin 0.3 D AST 15 ALT 25 Alkaline Phosphatase 63 Total Protein 5.7 L Albumin 2.6 L Problem List - Problems (1) Anxiety Code(s): F41.9 - ANXIETY DISORDER, UNSPECIFIED (2) Acute exacerbation of COPD with asthma Code(s): J44.1 - CHRONIC OBSTRUCTIVE PULMONARY DISEASE W (ACUTE) EXACERBATION J45.901 - UNSPECIFIED ASTHMA WITH (ACUTE) EXACERBATION (3) COPD with acute exacerbation Code(s): J44.1 - CHRONIC OBSTRUCTIVE PULMONARY DISEASE W (ACUTE) EXACERBATION (4) Chronic bronchitis with acute exacerbation Code(s): J20.9 - ACUTE BRONCHITIS, UNSPECIFIED J42 - UNSPECIFIED CHRONIC BRONCHITIS (5) Coughing Code(s): R05 - COUGH Assessment/Plan O2 SUPPLEMENTATION NEEDED ABX COVERAGE PER ID BRONCHODILATORS DAILY PREDNISONE SPIRIVA LOVENOX DR COYNE
--- NOTE | 2017-04-16 11:35 | PN ---
Progress Note, Physician - Current Medication List Current Medications: Active Medications Acetaminophen (Tylenol -) 650 mg PO Q4H PRN PRN Reason: FEVER OR PAIN Last Admin: 04/15/17 20:05 Dose: 650 mg Albuterol/Ipratropium (Duoneb -) 1 amp NEB Q4H PRN PRN Reason: SHORTNESS OF BREATH Last Admin: 04/15/17 22:09 Dose: 1 amp Alprazolam (Xanax -) 0.25 mg PO TID [facility] Last Admin: 04/16/17 06:09 Dose: 0.25 mg Amino Acids (Prosource No Carb Liquid Pkt) 30 ml PO DAILY [facility] Last Admin: 04/16/17 09:39 Dose: 30 ml Aspirin (Asa -) 81 mg PO DAILY [facility] Last Admin: 04/16/17 09:43 Dose: 81 mg Atorvastatin Calcium (Lipitor -) 10 mg PO HS [facility] Last Admin: 04/15/17 21:44 Dose: 10 mg Budesonide/Formoterol Fumarate (Symbicort 80/4.5mcg -) 2 puff IH BID [facility] Last Admin: 04/16/17 09:45 Dose: 2 puff Calcium Carbonate/Cholecalciferol (Os-Juan 500+D -) 1 tab PO BID [facility] Last Admin: 04/16/17 09:43 Dose: 1 tab Diltiazem HCl (Cardizem Cd -) 240 mg PO DAILY [facility] Last Admin: 04/16/17 09:40 Dose: 240 mg Docusate Sodium (Colace -) 200 mg PO DAILY [facility] Last Admin: 04/16/17 09:40 Dose: 200 mg Donepezil HCl (Aricept -) 10 mg PO DAILY [facility] Last Admin: 04/16/17 09:40 Dose: 10 mg Enoxaparin Sodium (Lovenox -) 40 mg SQ DAILY [facility] Last Admin: 04/16/17 09:44 Dose: 40 mg Escitalopram Oxalate (Lexapro -) 10 mg PO DAILY [facility] Last Admin: 04/16/17 09:43 Dose: 10 mg Gabapentin (Neurontin -) 300 mg PO BID [facility] Last Admin: 04/16/17 09:43 Dose: 300 mg Guaifenesin (Mucinex -) 600 mg PO BID [facility] Last Admin: 04/16/17 09:44 Dose: 600 mg Sodium Chloride (Normal Saline -) 1,000 mls @ 100 mls/hr IV ASDIR [facility] Last Admin: 04/16/17 09:45 Dose: 100 mls/hr Levothyroxine Sodium (Synthroid -) 75 mcg PO DAILY@0700 [facility] Last Admin: 04/16/17 06:09 Dose: 75 mcg Loratadine (Claritin -) 10 mg PO DAILY [facility] Last Admin: 04/16/17 09:40 Dose: 10 mg Memantine (Namenda -) 10 mg PO BID [facility] Last Admin: 04/16/17 09:40 Dose: 10 mg Multivitamins/Minerals (Theragran-M) 1 each PO DAILY [facility] Last Admin: 04/16/17 09:43 Dose: 1 each Mycophenolate Mofetil (Cellcept -) 500 mg PO DAILY [facility] Last Admin: 04/16/17 09:52 Dose: 500 mg Nitrofurantoin Macrocrystals (Macrodantin -) 50 mg PO Q6HPO [facility] Last Admin: 04/16/17 06:09 Dose: 50 mg Polyethylene Glycol (Miralax (For Daily Use) -) 17 gm PO DAILY [facility] Last Admin: 04/16/17 10:11 Dose: 17 gm Potassium Chloride (K-Dur -) 20 meq PO DAILY [facility] Potassium Phos/Sodium Phos (Phos-Nak Packet -) 1 packet PO BID [facility] Last Admin: 04/16/17 09:52 Dose: 1 packet Prednisone (Deltasone -) 15 mg PO DAILY [facility] Last Admin: 04/16/17 09:52 Dose: 15 mg Ranitidine HCl (Zantac -) 150 mg PO BID [facility] Last Admin: 04/16/17 09:52 Dose: 150 mg Senna (Senna -) 2 tab PO HS [facility] Last Admin: 04/15/17 21:45 Dose: 2 tab Solifenacin (Vesicare -) 5 mg PO DAILY [facility] Last Admin: 04/16/17 10:00 Dose: 5 mg Tiotropium [place] (Spiriva -) 1 puff IH DAILY [facility] Last Admin: 04/16/17 09:45 Dose: 1 inh - Objective Vital Signs: Vital Signs Temperature 98.0 F 04/16/17 10:00 Pulse Rate 90 04/16/17 10:00 Respiratory Rate 20 04/16/17 10:00 Blood Pressure 135/82 04/16/17 10:00 O2 Sat by Pulse Oximetry (%) 97 04/16/17 09:00 Constitutional: Yes: Well Nourished, No Distress, Calm Eyes: Yes: WNL, Conjunctiva Clear, EOM Intact HENT: Yes: WNL, Atraumatic, Normocephalic Neck: Yes: WNL, Supple, Trachea Midline Cardiovascular: Yes: WNL, Regular Rate and Rhythm Respiratory: Yes: WNL, Regular, CTA Bilaterally Gastrointestinal: Yes: WNL, Normal Bowel Sounds, Soft ...Rectal Exam: Yes: Deferred Extremities: Yes: Calf Tenderness Edema: Yes Edema: LLE: 3+ (calf with tenderness ) Peripheral Pulses WNL: Yes Peripheral Pulses: Left Radial: 2+, Right Radial: 2+, Left Femoral: 2+, Right Femoral: 2+ Integumentary: Yes: WNL Labs: CBC, BMP 04/16/17 08:00 04/16/17 08:00 INR, PTT INR 1.02 (0.82-1.09) 04/12/17 06:03 Problem List - Problems (1) Left lower lobe pneumonia Assessment/Plan: c/w zosyn per ID and pulmonary Code(s): J18.1 - LOBAR PNEUMONIA, UNSPECIFIED ORGANISM Qualifiers: Pneumonia type: due to unspecified organism Qualified Code(s): J18.1 - Lobar pneumonia, unspecified organism; J18.1 - Lobar pneumonia, unspecified organism; J18.1 - Lobar pneumonia, unspecified organism (2) Acute exacerbation of COPD with asthma Assessment/Plan: c/w albuterol c/w tiotropium Code(s): J44.1 - CHRONIC OBSTRUCTIVE PULMONARY DISEASE W (ACUTE) EXACERBATION J45.901 - UNSPECIFIED ASTHMA WITH (ACUTE) EXACERBATION (3) Dementia Assessment/Plan: c/w home medication Code(s): F03.90 - UNSPECIFIED DEMENTIA WITHOUT BEHAVIORAL DISTURBANCE Qualifiers: Dementia type: unspecified type Dementia behavioral disturbance: without behavioral disturbance Qualified Code(s): F03.90 - Unspecified dementia without behavioral disturbance; F03.90 - Unspecified dementia without behavioral disturbance; F03.90 - Unspecified dementia without behavioral disturbance (4) Hypercholesteremia Assessment/Plan: c/w lipitor 10mg Code(s): E78.0 - PURE HYPERCHOLESTEROLEMIA * DO NOT USE * (5) Hypertension Assessment/Plan: start the patient on losartan 25mg daily Code(s): I10 - ESSENTIAL (PRIMARY) HYPERTENSION (6) Hypothyroid Assessment/Plan: c/w synthroid Code(s): E03.9 - HYPOTHYROIDISM, UNSPECIFIED (7) Left leg swelling Assessment/Plan: acute leg swelling with tenderness patient is on sub-q lovenox will order a doppler study of the lower ext to r/o acute DVT Code(s): M79.89 - OTHER SPECIFIED SOFT TISSUE DISORDERS
[2017-04-16] MEDS ORDERED: LOSARTAN POTASSIUM 25 MG TABLET PO ONE ×2 (11:43→13:15)
[2017-04-16] MEDS: POTASSIUM CHLORIDE TABS 20 MEQ TABLET.ER (FP) PO SCH (13:58)
[2017-04-16] MEDS: ENOXAPARIN NA (PORCINE) 60 MG/0.6 ML DISP.SYRIN SQ SCH (21:42)
[2017-04-16] MEDS: SENNOSIDES 8.6MG TABLET (FP) PO SCH (21:42)
[2017-04-16] MEDS: ATORVASTATIN CA 10 MG TABLET (FP) PO SCH (21:42)
[2017-04-17] MEDS: NITROFURANTOIN MACROCRYSTAL 50 MG CAPSULE (FP) PO SCH ×4 (06:36→23:01)
[2017-04-17] MEDS: LEVOTHYROXINE NA 75 MCG TABLET (FP) PO SCH (06:36)
[2017-04-17] MEDS: ALPRAZolam 0.25 MG TABLET PO SCH ×3 (06:36→21:35)
[2017-04-17 08:58] LABS: BASOPHIL 0.4 % (0-2.0); EOSINOPHIL 1.9 % (0-4.5); MCH 28.7 pg (25.7-33.7); MCHC 31.7 g/dl (32.0-36.0); MEAN CELL VOLUME 90.7 fl (80-96); NEUTROPHILS 59.8 % (42.8-82.8); PLATELET COUNT 325 K/MM3 (134-434); RDW 14.5 % (11.6-15.6); WHITE BLOOD COUNT 10.6 K/mm3 (4.0-10.0)
[2017-04-17 09:33] LABS: ANION GAP 8 (8-16); CALCIUM 9.2 mg/dL (8.5-10.1); CO2 33 mmol/L (21-32); CREATININE 0.6 mg/dL (0.55-1.02); GLUCOSE,RANDOM 77 mg/dL (74-106)
[2017-04-17] MEDS: guaiFENesin 600 MG TABLET.ER (FP) PO SCH ×2 (10:31→21:36)
[2017-04-17] MEDS: RANITIDINE HCL 150 MG TABLET (FP) PO SCH ×2 (10:32→21:35)
[2017-04-17] MEDS: SOLIFENACIN SUCCINATE 5 MG TAB (FP) PO SCH (10:32)
[2017-04-17] MEDS: ESCITALOPRAM OXALATE 10 MG TABLET (FP) PO SCH (10:32)
[2017-04-17] MEDS: GABAPENTIN 300 MG CAPSULE (FP) PO SCH ×2 (10:32→21:35)
[2017-04-17] MEDS: POTASSIUM CHLORIDE TABS 20 MEQ TABLET.ER (FP) PO SCH (10:32)
[2017-04-17] MEDS: MEMANTINE HCL 10 MG TABLET (FP) PO SCH ×2 (10:32→21:35)
[2017-04-17] MEDS: DOCUSATE SODIUM 100 MG CAPSULE (FP) PO SCH (10:32)
[2017-04-17] MEDS: CALCIUM 500MG/VIT-D 200 UNITS COMBO TABLET (FP) PO SCH ×2 (10:32→21:35)
[2017-04-17] MEDS: DONEPEZIL HCL 10 MG TABLET (FP) PO SCH (10:33)
[2017-04-17] MEDS: LORATADINE 10 MG TABLET PO SCH (10:33)
[2017-04-17] MEDS: ASPIRIN 81 MG CHEWABLE TABLETS PO SCH (10:33)
[2017-04-17] MEDS: MULTIVITAMINS THER W-MINERALS COMBO TABLET (FP) PO SCH (10:33)
[2017-04-17] MEDS: ENOXAPARIN NA (PORCINE) 60 MG/0.6 ML DISP.SYRIN SQ SCH ×2 (10:34→21:36)
[2017-04-17] MEDS: NAPH,MB-DB/K PH,MBDB POWDER PACKET PO SCH ×2 (10:34→21:36)
[2017-04-17] MEDS: AMINO ACIDS/PROTEIN HYDROLYS 30 ML LIQUID.PKT PO SCH (10:35)
[2017-04-17] MEDS: TIOTROPIUM BROMIDE 18 MCG/INH (DEVICE W/ 5 CAPSULES) IH SCH (10:35)
[2017-04-17] MEDS: BUDESONIDE/FORMETEROL FUMARATE 80/4.5 mcg INHALER IH SCH ×2 (10:36→21:36)
[2017-04-17] MEDS: predniSONE 10 MG TABLET (UD) PO SCH (10:45)
[2017-04-17] MEDS: MYCOPHENOLATE MOFETIL 500 MG TABLET PO SCH (10:47)
[2017-04-17] MEDS: POLYETHYLENE GLYCOL 3350 119 GM BTL PO SCH (10:58)
--- NOTE | 2017-04-17 13:33 | PN ---
Progress Note, Physician History of Present Illness: PULMONARY ALERT,NAD,-SOB,-CP - Current Medication List Current Medications: Active Medications Acetaminophen (Tylenol -) 650 mg PO Q4H PRN PRN Reason: FEVER OR PAIN Last Admin: 04/15/17 20:05 Dose: 650 mg Albuterol/Ipratropium (Duoneb -) 1 amp NEB Q4H PRN PRN Reason: SHORTNESS OF BREATH Last Admin: 04/15/17 22:09 Dose: 1 amp Alprazolam (Xanax -) 0.25 mg PO TID [facility] Last Admin: 04/17/17 06:36 Dose: 0.25 mg Amino Acids (Prosource No Carb Liquid Pkt) 30 ml PO DAILY [facility] Last Admin: 04/17/17 10:35 Dose: 30 ml Aspirin (Asa -) 81 mg PO DAILY [facility] Last Admin: 04/17/17 10:33 Dose: 81 mg Atorvastatin Calcium (Lipitor -) 10 mg PO HS [facility] Last Admin: 04/16/17 21:42 Dose: 10 mg Budesonide/Formoterol Fumarate (Symbicort 80/4.5mcg -) 2 puff IH BID [facility] Last Admin: 04/17/17 10:36 Dose: 2 puff Calcium Carbonate/Cholecalciferol (Os-Juan 500+D -) 1 tab PO BID [facility] Last Admin: 04/17/17 10:32 Dose: 1 tab Diltiazem HCl (Cardizem Cd -) 240 mg PO DAILY [facility] Last Admin: 04/17/17 10:33 Dose: 240 mg Docusate Sodium (Colace -) 200 mg PO DAILY [facility] Last Admin: 04/17/17 10:32 Dose: 200 mg Donepezil HCl (Aricept -) 10 mg PO DAILY [facility] Last Admin: 04/17/17 10:33 Dose: 10 mg Enoxaparin Sodium (Lovenox -) 60 mg SQ BID [facility] Last Admin: 04/17/17 10:34 Dose: 60 mg Escitalopram Oxalate (Lexapro -) 10 mg PO DAILY [facility] Last Admin: 04/17/17 10:32 Dose: 10 mg Gabapentin (Neurontin -) 300 mg PO BID [facility] Last Admin: 04/17/17 10:32 Dose: 300 mg Guaifenesin (Mucinex -) 600 mg PO BID [facility] Last Admin: 04/17/17 10:31 Dose: 600 mg Sodium Chloride (Normal Saline -) 1,000 mls @ 100 mls/hr IV ASDIR [facility] Last Admin: 04/16/17 21:43 Dose: 100 mls/hr Levothyroxine Sodium (Synthroid -) 75 mcg PO DAILY@0700 [facility] Last Admin: 04/17/17 06:36 Dose: 75 mcg Loratadine (Claritin -) 10 mg PO DAILY [facility] Last Admin: 04/17/17 10:33 Dose: 10 mg Memantine (Namenda -) 10 mg PO BID [facility] Last Admin: 04/17/17 10:32 Dose: 10 mg Multivitamins/Minerals (Theragran-M) 1 each PO DAILY [facility] Last Admin: 04/17/17 10:33 Dose: 1 each Mycophenolate Mofetil (Cellcept -) 500 mg PO DAILY [facility] Last Admin: 04/17/17 10:47 Dose: 500 mg Nitrofurantoin Macrocrystals (Macrodantin -) 50 mg PO Q6HPO [facility] Last Admin: 04/17/17 12:25 Dose: 50 mg Polyethylene Glycol (Miralax (For Daily Use) -) 17 gm PO DAILY [facility] Last Admin: 04/17/17 10:58 Dose: 17 gm Potassium Chloride (K-Dur -) 20 meq PO DAILY [facility] Last Admin: 04/17/17 10:32 Dose: 20 meq Potassium Phos/Sodium Phos (Phos-Nak Packet -) 1 packet PO BID [facility] Last Admin: 04/17/17 10:34 Dose: 1 packet Prednisone (Deltasone -) 15 mg PO DAILY [facility] Last Admin: 04/17/17 10:45 Dose: 15 mg Ranitidine HCl (Zantac -) 150 mg PO BID [facility] Last Admin: 04/17/17 10:32 Dose: 150 mg Senna (Senna -) 2 tab PO HS [facility] Last Admin: 04/16/17 21:42 Dose: 2 tab Solifenacin (Vesicare -) 5 mg PO DAILY [facility] Last Admin: 04/17/17 10:32 Dose: 5 mg Tiotropium [place] (Spiriva -) 1 puff IH DAILY [facility] Last Admin: 04/17/17 10:35 Dose: 1 inh - Objective Vital Signs: Vital Signs Temperature 97.5 F L 04/17/17 10:00 Pulse Rate 90 04/17/17 10:00 Respiratory Rate 20 04/17/17 10:00 Blood Pressure 158/77 04/17/17 10:00 O2 Sat by Pulse Oximetry (%) 96 04/17/17 09:00 Constitutional: Yes: Well Nourished, Calm Eyes: Yes: WNL HENT: Yes: WNL, Tonsillar Exudate Cardiovascular: Yes: Regular Rate and Rhythm, S1, S2 Respiratory: Yes: Wheezes (SCATTERED SYLWIA WHEEZES) Gastrointestinal: Yes: Normal Bowel Sounds, Soft Extremities: Yes: WNL Edema: No Labs: CBC, BMP 04/17/17 08:45 04/17/17 08:45 INR, PTT INR 1.02 (0.82-1.09) 04/12/17 06:03 Assessment/Plan Problem List - Problems (1) Anxiety Code(s): F41.9 - ANXIETY DISORDER, UNSPECIFIED (2) Acute exacerbation of COPD with asthma Code(s): J44.1 - CHRONIC OBSTRUCTIVE PULMONARY DISEASE W (ACUTE) EXACERBATION J45.901 - UNSPECIFIED ASTHMA WITH (ACUTE) EXACERBATION (3) COPD with acute exacerbation Code(s): J44.1 - CHRONIC OBSTRUCTIVE PULMONARY DISEASE W (ACUTE) EXACERBATION (4) Chronic bronchitis with acute exacerbation Code(s): J20.9 - ACUTE BRONCHITIS, UNSPECIFIED J42 - UNSPECIFIED CHRONIC BRONCHITIS (5) Coughing Code(s): R05 - COUGH Assessment/Plan O2 SUPPLEMENTATION ABX COVERAGE PER ID BRONCHODILATORS PREDNISONE SPIRIVA LOVENOX DR HORN
--- NOTE | 2017-04-17 16:11 | PN ---
Physical Exam: SUBJECTIVE: Patient seen and examined. No acute events overnight. Pt reports no difficulty breathing, cough, fevers, chest pain, n/v/d/c, or urinary symptoms. OBJECTIVE: Vital Signs Period Temp Pulse Resp BP Sys/[place] Pulse Ox Last 24 Hr 97.5 F-98.2 F 75-96 18-20 129-158/74-88 96-98 GENERAL: The patient is awake, alert, AAOx2 (name and place) in no acute distress. HEAD: Normal with no signs of trauma. EYES: PERRL, extraocular movements intact, sclera anicteric, conjunctiva clear. No ptosis. ENT: Ears normal, nares patent, oropharynx clear without exudates, moist mucous membranes. NECK: Trachea midline, full range of motion, supple. LUNGS: rales overlying right lung, good airflow HEART: Regular rate and rhythm, S1, S2 without murmur, rub or gallop. ABDOMEN: Soft, nontender, nondistended, normoactive bowel sounds, no guarding, no rebound, no hepatosplenomegaly, no masses. EXTREMITIES: 2+ LE edema NEUROLOGICAL: Cranial nerves II through XII grossly intact. Normal speech, gait not observed. PSYCH: Normal mood, normal affect. SKIN: Warm, dry, normal turgor, no rashes or lesions noted Laboratory Results - last 24 hr 04/17/17 04/17/17 08:45 08:45 WBC 10.6 H RBC 3.87 Hgb 11.1 Hct 35.1 MCV 90.7 MCH 28.7 MCHC 31.7 L RDW 14.5 Plt Count 325 MPV 8.0 Neutrophils % 59.8 Lymphocytes % 25.3 D Monocytes % 12.6 H Eosinophils % 1.9 Basophils % 0.4 Sodium 142 Potassium 3.5 Chloride 101 Carbon Dioxide 33 H Anion Gap 8 BUN 7 D Creatinine 0.6 Random Glucose 77 D Calcium 9.2 Active Medications Generic Name Dose Route Start Last Admin Trade Name Freq PRN Reason Stop Dose Admin Acetaminophen 650 mg 04/12/17 15:37 04/15/17 20:05 Tylenol - PO 650 mg Q4H PRN Administration FEVER OR PAIN Alprazolam 0.25 mg 04/12/17 15:45 04/17/17 13:48 Xanax - PO 0.25 mg TID [facility] Administration Amino Acids 30 ml 04/13/17 10:00 04/17/17 10:35 Prosource No Carb Liquid Pkt PO 30 ml DAILY [facility] Administration Aspirin 81 mg 04/13/17 10:00 04/17/17 10:33 Asa - PO 81 mg DAILY [facility] Administration Atorvastatin Calcium 10 mg 04/12/17 22:00 04/16/17 21:42 Lipitor - PO 10 mg HS [facility] Administration Budesonide/Formoterol Fumarate 2 puff 04/12/17 22:00 04/17/17 10:36 Symbicort 80/4.5mcg - IH 2 puff BID [facility] Administration Calcium Carbonate/Cholecalciferol 1 tab 04/12/17 22:00 04/17/17 10:32 Os-Juan 500+D - PO 1 tab BID [facility] Administration Diltiazem HCl 240 mg 04/13/17 10:00 04/17/17 10:33 Cardizem Cd - PO 240 mg DAILY [facility] Administration Docusate Sodium 200 mg 04/12/17 15:45 04/17/17 10:32 Colace - PO 200 mg DAILY [facility] Administration Donepezil HCl 10 mg 04/13/17 10:00 04/17/17 10:33 Aricept - PO 10 mg DAILY [facility] Administration Enoxaparin Sodium 60 mg 04/16/17 22:00 04/17/17 10:34 Lovenox - SQ 60 mg BID [facility] Administration Escitalopram Oxalate 10 mg 04/12/17 15:45 04/17/17 10:32 Lexapro - PO 10 mg DAILY [facility] Administration Gabapentin 300 mg 04/12/17 22:00 04/17/17 10:32 Neurontin - PO 300 mg BID [facility] Administration Guaifenesin 600 mg 04/12/17 22:00 04/17/17 10:31 Mucinex - PO 600 mg BID [facility] Administration Sodium Chloride 1,000 mls @ 100 mls/hr 04/12/17 15:45 04/16/17 21:43 Normal Saline - IV 100 mls/hr ASDIR [facility] Administration Levothyroxine Sodium 75 mcg 04/13/17 07:00 04/17/17 06:36 Synthroid - PO 75 mcg DAILY@0700 [facility] Administration Loratadine 10 mg 04/13/17 10:00 04/17/17 10:33 Claritin - PO 10 mg DAILY [facility] Administration Memantine 10 mg 04/12/17 22:00 04/17/17 10:32 Namenda - PO 10 mg BID [facility] Administration Multivitamins/Minerals 1 each 04/13/17 10:00 04/17/17 10:33 Theragran-M PO 1 each DAILY [facility] Administration Mycophenolate Mofetil 500 mg 04/12/17 15:45 04/17/17 10:47 Cellcept - PO 500 mg DAILY [facility] Administration Nitrofurantoin Macrocrystals 50 mg 04/14/17 18:00 04/17/17 12:25 Macrodantin - PO 50 mg Q6HPO [facility] Administration Polyethylene Glycol 17 gm 04/13/17 10:00 04/17/17 10:58 Miralax (For Daily Use) - PO 17 gm DAILY [facility] Administration Potassium Chloride 20 meq 04/16/17 13:00 04/17/17 10:32 K-Dur - PO 20 meq DAILY [facility] Administration Potassium Phos/Sodium Phos 1 packet 04/14/17 10:00 04/17/17 10:34 Phos-Nak Packet - PO 1 packet BID [facility] Administration Prednisone 15 mg 04/12/17 15:45 04/17/17 10:45 Deltasone - PO 15 mg DAILY [facility] Administration Ranitidine HCl 150 mg 04/12/17 22:00 04/17/17 10:32 Zantac - PO 150 mg BID [facility] Administration Senna 2 tab 04/12/17 22:00 04/16/17 21:42 Senna - PO 2 tab HS [facility] Administration Solifenacin 5 mg 04/13/17 10:00 04/17/17 10:32 Vesicare - PO 5 mg DAILY [facility] Administration Tiotropium [place] 1 puff 04/13/17 10:00 04/17/17 10:35 Spiriva - IH 1 inh DAILY [facility] Administration Ucx: E. 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 Urine culture grew E. coli ESBL, sensitive to nitrofurantoin; pt currently being treated with that antibiotic. #Sepsis -2/2 HCAP as pt is coming from [facility], in setting of COPD, prior pulmonary lymphoma, and immunosuppression -ID on board, Dr. Sidhu, recs appreciated -Pulmonary on board, Dr. Harding, recs appreciated -Bcx: NTD, sputum cx pending, Urine legionella and strep pneumo negative, flu swab negative -nitrofurantoin 50 q6h, duonebs q4h PRN, APAP for fever/pain, O2 via NC (88%- 92%) -trend wbc, temps #DVT -continue lovenox 60mg BID -awaiting approval for NOAC #Fall -likely 2/2 presyncope in setting of sepsis -hip XR negative for acute fracture -CT head negative for acute brain bleed -fall precautions #hypokalemia -repleting K -monitor K #CAD -continue ASA, #COPD/Asthma -continue spiriva, symbicort, duonebs PRN #Alzheimer dementia -continue donepezil #HTN -continue cardizem #HLD -continue lipitor #Hypothyroidism -continue synthroid #Overactive Bladder -continue oxybutynin #Yoly's granulomatosis -continue prednisone and mycophenalate mofetil #Anxiety/Depression -continue xanax and lexapro #GERD -zantac #Constipation -continue senna, colace, and miralax #FEN/PPx -NS at 100cc/hr -repleting K -low-sodium diet -zantac -lovenox 60mg BID #Dispo -pt is medically cleared for discharge. Per CM/SW, awaiting approval for NOAC and acceptance at [facility]. *Pt is DNR -Wander Arias MD PGY1 Visit type - Emergency Visit Emergency Visit: Yes ED Registration Date: 04/12/17 Care time: The patient presented to the Emergency Department on the above date and was hospitalized for further evaluation of their emergent condition. - New Patient This patient is new to me today: No - Critical Care Critical Care patient: No
[2017-04-17] MEDS: SODIUM CHLORIDE 1,000 ML IV SCH (16:29)
--- NOTE | 2017-04-17 16:57 | PN ---
Teaching Attending Note Name of Resident: Wander Arias ATTENDING PHYSICIAN STATEMENT I saw and evaluated the patient. I reviewed the resident's note and discussed the case with the resident. I agree with the resident's findings and plan as documented. SUBJECTIVE: c/o cough , productive with yellow sputum OBJECTIVE: Vital Signs Temperature 98.1 F 04/17/17 15:32 Pulse Rate 96 H 04/17/17 15:32 Respiratory Rate 20 04/17/17 15:32 Blood Pressure 129/82 04/17/17 15:32 O2 Sat by Pulse Oximetry (%) 96 04/17/17 09:00 LUNGS: rales overlying right lung, good airflow HEART: Regular rate and rhythm, S1, S2 without murmur, rub or gallop. ABDOMEN: Soft, nontender, nondistended, normoactive bowel sounds, no guarding, no rebound, no hepatosplenomegaly, no masses. EXTREMITIES: 2+ LE edema CBC, BMP 04/17/17 08:45 04/17/17 08:45 ASSESSMENT AND PLAN: # Acute DVT- [facility] of choice does not accept patients with sC meds . -awaiting approval for PO NOAC # LLL HCAP - improved # ESBL UTI - asymptomatic now , on nitrofurantoin # Dementia - stable needs daily PT to avoid further decompensation of function al status
[2017-04-17] MEDS: BACITRACIN 15 GM TUBE TOPICAL OINTMENT TP SCH (17:14)
[2017-04-17] MEDS ORDERED: PT OWN MED DRAWER 7, Y5N ONE (21:15)
[2017-04-17] MEDS: SENNOSIDES 8.6MG TABLET (FP) PO SCH (21:36)
[2017-04-17] MEDS: ATORVASTATIN CA 10 MG TABLET (FP) PO SCH (21:36)
[2017-04-18] MEDS: LEVOTHYROXINE NA 75 MCG TABLET (FP) PO SCH (06:48)
[2017-04-18] MEDS: ALPRAZolam 0.25 MG TABLET PO SCH ×2 (06:48→14:07)
[2017-04-18] MEDS: NITROFURANTOIN MACROCRYSTAL 50 MG CAPSULE (FP) PO SCH ×3 (06:48→18:00)
[2017-04-18 08:33] LABS: BASOPHIL 0.4 % (0-2.0); EOSINOPHIL 0.8 % (0-4.5); MCH 28.7 pg (25.7-33.7); MCHC 31.8 g/dl (32.0-36.0); MEAN CELL VOLUME 90.4 fl (80-96); MEAN PLT VOLUME 7.9 fl (7.5-11.1); NEUTROPHILS 68.5 % (42.8-82.8); PLATELET COUNT 344 K/MM3 (134-434); WHITE BLOOD COUNT 13.6 K/mm3 (4.0-10.0)
[2017-04-18 08:52] LABS: ANION GAP 6 (8-16); CALCIUM 9.1 mg/dL (8.5-10.1); CO2 36 mmol/L (21-32); CREATININE 0.8 mg/dL (0.55-1.02); GLUCOSE,RANDOM 78 mg/dL (74-106)
[2017-04-18] MEDS: SOLIFENACIN SUCCINATE 5 MG TAB (FP) PO SCH (09:18)
[2017-04-18] MEDS: predniSONE 10 MG TABLET (UD) PO SCH (09:18)
[2017-04-18] MEDS: ESCITALOPRAM OXALATE 10 MG TABLET (FP) PO SCH (09:19)
[2017-04-18] MEDS: DOCUSATE SODIUM 100 MG CAPSULE (FP) PO SCH (09:19)
[2017-04-18] MEDS: MEMANTINE HCL 10 MG TABLET (FP) PO SCH (09:19)
[2017-04-18] MEDS: ASPIRIN 81 MG CHEWABLE TABLETS PO SCH (09:19)
[2017-04-18] MEDS: GABAPENTIN 300 MG CAPSULE (FP) PO SCH (09:19)
[2017-04-18] MEDS: DONEPEZIL HCL 10 MG TABLET (FP) PO SCH (09:20)
[2017-04-18] MEDS: CALCIUM 500MG/VIT-D 200 UNITS COMBO TABLET (FP) PO SCH (09:20)
[2017-04-18] MEDS: MULTIVITAMINS THER W-MINERALS COMBO TABLET (FP) PO SCH (09:20)
[2017-04-18] MEDS: POTASSIUM CHLORIDE TABS 20 MEQ TABLET.ER (FP) PO SCH (09:20)
[2017-04-18] MEDS: RANITIDINE HCL 150 MG TABLET (FP) PO SCH (09:20)
[2017-04-18] MEDS: LORATADINE 10 MG TABLET PO SCH (09:20)
[2017-04-18] MEDS: guaiFENesin 600 MG TABLET.ER (FP) PO SCH (09:21)
[2017-04-18] MEDS: MYCOPHENOLATE MOFETIL 500 MG TABLET PO SCH (09:22)
[2017-04-18] MEDS: NAPH,MB-DB/K PH,MBDB POWDER PACKET PO SCH (09:22)
[2017-04-18] MEDS: AMINO ACIDS/PROTEIN HYDROLYS 30 ML LIQUID.PKT PO SCH (09:22)
[2017-04-18] MEDS: TIOTROPIUM BROMIDE 18 MCG/INH (DEVICE W/ 5 CAPSULES) IH SCH (09:23)
[2017-04-18] MEDS: BUDESONIDE/FORMETEROL FUMARATE 80/4.5 mcg INHALER IH SCH (09:23)
[2017-04-18] MEDS: ENOXAPARIN NA (PORCINE) 60 MG/0.6 ML DISP.SYRIN SQ SCH (09:32)
[2017-04-18] MEDS: BACITRACIN 15 GM TUBE TOPICAL OINTMENT TP SCH (09:33)
[2017-04-18] MEDS: POLYETHYLENE GLYCOL 3350 119 GM BTL PO SCH (09:36)
--- NOTE | 2017-04-18 11:08 | PN ---
Progress Note (short form) - Note Progress Note: PULMONARY Denies leg pain, shortness of breath or chest pain. Last Vital Signs Temp Pulse Resp BP Pulse Ox 97.7 F 88 18 149/87 96 04/18/17 09:50 04/18/17 09:50 04/18/17 09:50 04/18/17 09:50 04/18/17 09:00 Gen: NAD at rest Heart: RRR Lung: decreased breath sounds at the bases Abd: soft, nontender Ext: + ecchymoses, + edema RLE CBC, BMP 04/18/17 06:50 04/18/17 06:50 Active Medications Acetaminophen (Tylenol -) 650 mg PO Q4H PRN PRN Reason: FEVER OR PAIN Last Admin: 04/15/17 20:05 Dose: 650 mg Alprazolam (Xanax -) 0.25 mg PO TID [facility] Last Admin: 04/18/17 06:48 Dose: 0.25 mg Amino Acids (Prosource No Carb Liquid Pkt) 30 ml PO DAILY [facility] Last Admin: 04/18/17 09:22 Dose: 30 ml Aspirin (Asa -) 81 mg PO DAILY [facility] Last Admin: 04/18/17 09:19 Dose: 81 mg Atorvastatin Calcium (Lipitor -) 10 mg PO HS [facility] Last Admin: 04/17/17 21:36 Dose: 10 mg Bacitracin (Bacitracin -) 1 applic TP DAILY [facility] Last Admin: 04/18/17 09:33 Dose: Not Given Budesonide/Formoterol Fumarate (Symbicort 80/4.5mcg -) 2 puff IH BID [facility] Last Admin: 04/18/17 09:23 Dose: 2 puff Calcium Carbonate/Cholecalciferol (Os-Juan 500+D -) 1 tab PO BID [facility] Last Admin: 04/18/17 09:20 Dose: 1 tab Diltiazem HCl (Cardizem Cd -) 240 mg PO DAILY [facility] Last Admin: 04/18/17 09:21 Dose: 240 mg Docusate Sodium (Colace -) 200 mg PO DAILY [facility] Last Admin: 04/18/17 09:19 Dose: 200 mg Donepezil HCl (Aricept -) 10 mg PO DAILY [facility] Last Admin: 04/18/17 09:20 Dose: 10 mg Enoxaparin Sodium (Lovenox -) 60 mg SQ BID [facility] Last Admin: 04/18/17 09:32 Dose: 60 mg Escitalopram Oxalate (Lexapro -) 10 mg PO DAILY [facility] Last Admin: 04/18/17 09:19 Dose: 10 mg Gabapentin (Neurontin -) 300 mg PO BID [facility] Last Admin: 04/18/17 09:19 Dose: 300 mg Guaifenesin (Mucinex -) 600 mg PO BID [facility] Last Admin: 04/18/17 09:21 Dose: 600 mg Levothyroxine Sodium (Synthroid -) 75 mcg PO DAILY@0700 [facility] Last Admin: 04/18/17 06:48 Dose: 75 mcg Loratadine (Claritin -) 10 mg PO DAILY [facility] Last Admin: 04/18/17 09:20 Dose: 10 mg Memantine (Namenda -) 10 mg PO BID [facility] Last Admin: 04/18/17 09:19 Dose: 10 mg Multivitamins/Minerals (Theragran-M) 1 each PO DAILY [facility] Last Admin: 04/18/17 09:20 Dose: 1 each Mycophenolate Mofetil (Cellcept -) 500 mg PO DAILY [facility] Last Admin: 04/18/17 09:22 Dose: 500 mg Nitrofurantoin Macrocrystals (Macrodantin -) 50 mg PO Q6HPO [facility] Stop: 04/18/17 23:59 Last Admin: 04/18/17 06:48 Dose: 50 mg Polyethylene Glycol (Miralax (For Daily Use) -) 17 gm PO DAILY [facility] Last Admin: 04/18/17 09:36 Dose: 17 gm Potassium Chloride (K-Dur -) 20 meq PO DAILY [facility] Last Admin: 04/18/17 09:20 Dose: 20 meq Potassium Phos/Sodium Phos (Phos-Nak Packet -) 1 packet PO BID [facility] Last Admin: 04/18/17 09:22 Dose: 1 packet Prednisone (Deltasone -) 15 mg PO DAILY [facility] Last Admin: 04/18/17 09:18 Dose: 15 mg Ranitidine HCl (Zantac -) 150 mg PO BID [facility] Last Admin: 04/18/17 09:20 Dose: 150 mg Senna (Senna -) 2 tab PO HS [facility] Last Admin: 04/17/17 21:36 Dose: 2 tab Solifenacin (Vesicare -) 5 mg PO DAILY [facility] Last Admin: 04/18/17 09:18 Dose: 5 mg Tiotropium [place] (Spiriva -) 1 puff IH DAILY [facility] Last Admin: 04/18/17 09:23 Dose: 1 inh A/P RLE DVT Pneumonia UTI COPD Chronic Hypoxic Respiratory Failure CAD HTN Hyperlipidemia Yoly's Granulomatosis on chronic steroids Dementia - continue anticoagulation - complete antibiotics - inhaled bronchodilators - O2 to keep SpO2 >90% - d/c planning in progress
--- NOTE | 2017-04-18 14:16 | PN ---
Physical Exam: SUBJECTIVE: Patient seen and examined. No acute events overnight. Pt reports no difficulty breathing, cough, fevers, chest pain, n/v/d/c, or urinary symptoms. OBJECTIVE: Vital Signs Period Temp Pulse Resp BP Sys/Bahena Pulse Ox Last 24 Hr 97.7 F-99.2 F 81-98 18-20 129-149/72-87 96-96 GENERAL: The patient is awake, alert, AAOx2 (name and place), in no acute distress. HEAD: Normal with no signs of trauma. EYES: PERRL, extraocular movements intact, sclera anicteric, conjunctiva clear. No ptosis. ENT: Ears normal, nares patent, oropharynx clear without exudates, moist mucous membranes. NECK: Trachea midline, full range of motion, supple. LUNGS: b/l rhonchi, no accessory muscle use HEART: Regular rate and rhythm, S1, S2 without murmur, rub or gallop. ABDOMEN: Soft, nontender, nondistended, normoactive bowel sounds, no guarding, no rebound, no hepatosplenomegaly, no masses. EXTREMITIES: 2+ pulses, warm, well-perfused, no edema. NEUROLOGICAL: Cranial nerves II through XII grossly intact. Normal speech, gait not observed. Laboratory Results - last 24 hr 04/18/17 04/18/17 06:50 06:50 WBC 13.6 H RBC 3.92 Hgb 11.3 Hct 35.4 MCV 90.4 MCH 28.7 MCHC 31.8 L RDW 15.0 Plt Count 344 MPV 7.9 Neutrophils % 68.5 Lymphocytes % 20.7 Monocytes % 9.6 Eosinophils % 0.8 Basophils % 0.4 Sodium 141 Potassium 3.8 Chloride 99 Carbon Dioxide 36 H Anion Gap 6 L BUN 19 H D Creatinine 0.8 D Random Glucose 78 Calcium 9.1 Active Medications Generic Name Dose Route Start Last Admin Trade Name Freq PRN Reason Stop Dose Admin Acetaminophen 650 mg 04/12/17 15:37 04/15/17 20:05 Tylenol - PO 650 mg Q4H PRN Administration FEVER OR PAIN Alprazolam 0.25 mg 04/12/17 15:45 04/18/17 14:07 Xanax - PO 0.25 mg TID BEVERLY Administration Amino Acids 30 ml 04/13/17 10:00 04/18/17 09:22 Prosource No Carb Liquid Pkt PO 30 ml DAILY BEVERLY Administration Aspirin 81 mg 04/13/17 10:00 04/18/17 09:19 Asa - PO 81 mg DAILY BEVERLY Administration Atorvastatin Calcium 10 mg 04/12/17 22:00 04/17/17 21:36 Lipitor - PO 10 mg HS BEVERLY Administration Bacitracin 1 applic 04/17/17 16:45 04/18/17 09:33 Bacitracin - TP Not Given DAILY BEVERLY Budesonide/Formoterol Fumarate 2 puff 04/12/17 22:00 04/18/17 09:23 Symbicort 80/4.5mcg - IH 2 puff BID BEVERLY Administration Calcium Carbonate/Cholecalciferol 1 tab 04/12/17 22:00 04/18/17 09:20 Os-Juan 500+D - PO 1 tab BID BEVERLY Administration Diltiazem HCl 240 mg 04/13/17 10:00 04/18/17 09:21 Cardizem Cd - PO 240 mg DAILY BEVERLY Administration Docusate Sodium 200 mg 04/12/17 15:45 04/18/17 09:19 Colace - PO 200 mg DAILY BEVERLY Administration Donepezil HCl 10 mg 04/13/17 10:00 04/18/17 09:20 Aricept - PO 10 mg DAILY BEVERLY Administration Enoxaparin Sodium 60 mg 04/16/17 22:00 04/18/17 09:32 Lovenox - SQ 60 mg BID BEVERLY Administration Escitalopram Oxalate 10 mg 04/12/17 15:45 04/18/17 09:19 Lexapro - PO 10 mg DAILY BEVERLY Administration Gabapentin 300 mg 04/12/17 22:00 04/18/17 09:19 Neurontin - PO 300 mg BID BEVERLY Administration Guaifenesin 600 mg 04/12/17 22:00 04/18/17 09:21 Mucinex - PO 600 mg BID BEVERLY Administration Levothyroxine Sodium 75 mcg 04/13/17 07:00 04/18/17 06:48 Synthroid - PO 75 mcg DAILY@0700 BEVERLY Administration Loratadine 10 mg 04/13/17 10:00 04/18/17 09:20 Claritin - PO 10 mg DAILY BEVERLY Administration Memantine 10 mg 04/12/17 22:00 04/18/17 09:19 Namenda - PO 10 mg BID BEVERLY Administration Multivitamins/Minerals 1 each 04/13/17 10:00 04/18/17 09:20 Theragran-M PO 1 each DAILY BEVERLY Administration Mycophenolate Mofetil 500 mg 04/12/17 15:45 04/18/17 09:22 Cellcept - PO 500 mg DAILY BEVERLY Administration Nitrofurantoin Macrocrystals 50 mg 04/14/17 18:00 04/18/17 12:20 Macrodantin - PO 04/18/17 23:59 50 mg Q6HPO BEVERLY Administration Polyethylene Glycol 17 gm 04/13/17 10:00 04/18/17 09:36 Miralax (For Daily Use) - PO 17 gm DAILY BEVERLY Administration Potassium Chloride 20 meq 04/16/17 13:00 04/18/17 09:20 K-Dur - PO 20 meq DAILY BEVERLY Administration Potassium Phos/Sodium Phos 1 packet 04/14/17 10:00 04/18/17 09:22 Phos-Nak Packet - PO 1 packet BID BEVERLY Administration Prednisone 15 mg 04/12/17 15:45 04/18/17 09:18 Deltasone - PO 15 mg DAILY BEVERLY Administration Ranitidine HCl 150 mg 04/12/17 22:00 04/18/17 09:20 Zantac - PO 150 mg BID BEVERLY Administration Senna 2 tab 04/12/17 22:00 04/17/17 21:36 Senna - PO 2 tab HS BEVERLY Administration Solifenacin 5 mg 04/13/17 10:00 04/18/17 09:18 Vesicare - PO 5 mg DAILY BEVERLY Administration Tiotropium [place] 1 puff 04/13/17 10:00 04/18/17 09:23 Spiriva - IH 1 inh DAILY BEVERLY Administration ASSESSMENT/PLAN: 86F w/ hx of CAD, COPD/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 Urine culture grew E. coli ESBL, sensitive to nitrofurantoin; pt currently being treated with that antibiotic. #Sepsis -2/2 HCAP came from senior care, in setting of COPD, prior pulmonary lymphoma, and immunosuppression -ID on board, Dr. Sidhu, recs appreciated -Pulmonary on board, Dr. Harding, recs appreciated -Bcx: NTD, sputum cx pending, Urine legionella and strep pneumo negative, flu swab negative -received 2 days of vanc and zosyn and then discontinued by ID -duonebs q4h PRN, APAP for fever/pain, O2 via NC (88%-92%) -wbc of 13.6 today, no fever -trend wbc, temps #UTI -UA negative but Cx growing E. coli ESBL, sensitive to nitrofurantoin -continue nitrofurantoin 50 q6h for last day #DVT -continue lovenox 60mg BID -pt covered for xarelto 20mg qd at pharmacy #Fall -likely 2/2 presyncope in setting of sepsis -hip XR negative for acute fracture -CT head negative for acute brain bleed -fall precautions #hypokalemia -resolved -monitor K #CAD -continue ASA #COPD/Asthma -continue spiriva, symbicort, duonebs PRN #Alzheimer dementia -continue donepezil #HTN -continue cardizem #HLD -continue lipitor #Hypothyroidism -continue synthroid #Overactive Bladder -continue oxybutynin #Yoly's granulomatosis -continue prednisone and mycophenalate mofetil #Anxiety/Depression -continue xanax and lexapro #GERD -zantac #Constipation -continue senna, colace, and miralax #FEN/PPx -NS at 100cc/hr -electrolytes wnl -low-sodium diet -zantac -lovenox 60mg BID #Dispo -pt is medically cleared for discharge. Per CM/SW, awaiting acceptance at [facility] *Pt is DNR -Wander Arias MD PGY1 Visit type - Emergency Visit Emergency Visit: Yes ED Registration Date: 04/12/17 Care time: The patient presented to the Emergency Department on the above date and was hospitalized for further evaluation of their emergent condition. - New Patient This patient is new to me today: No - Critical Care Critical Care patient: No
--- NOTE | 2017-04-18 15:53 | DS ---
Physical Exam: SUBJECTIVE: Patient seen and examined. No acute events overnight. Pt reports no difficulty breathing, cough, fevers, chest pain, n/v/d/c, or urinary symptoms. OBJECTIVE: Vital Signs Period Temp Pulse Resp BP Sys/Bahena Pulse Ox Last 24 Hr 97.7 F-99.2 F 81-98 18-18 135-149/72-87 96-96 PHYSICAL EXAM GENERAL: The patient is awake, alert, AAOx2 (name and place), in no acute distress. HEAD: Normal with no signs of trauma. EYES: PERRL, extraocular movements intact, sclera anicteric, conjunctiva clear. No ptosis. ENT: Ears normal, nares patent, oropharynx clear without exudates, moist mucous membranes. NECK: Trachea midline, full range of motion, supple. LUNGS: b/l rhonchi, no accessory respiratory muscle use HEART: Regular rate and rhythm, S1, S2 without murmur, rub or gallop. ABDOMEN: Soft, nontender, nondistended, normoactive bowel sounds, no guarding, no rebound, no hepatosplenomegaly, no masses. EXTREMITIES: 2+ pulses, warm, well-perfused, no edema. NEUROLOGICAL: Cranial nerves II through XII grossly intact. Normal speech, gait not observed. 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 ID discontinued the abx after 2 days as they did not believe pt had a true PNA. There was no evidence of any acute fractures or brain bleeds on imaging. 3 days into her hospital stay, urine culture grew E. coli ESBL that was sensitive to nitrofurantoin, so pt was treated with a course of nitrofurantoin. During her hospitalization, pt developed a DVT of her right LE and was started on therapeutic dose of lovenox. Today, pt is stable, afebrile with normal vitals, and is ready for discharge to her assisted living facility to start xarelto 20mg qd and follow up with PCP ( check CBC to ensure resolution of leukocytosis) and pulmonology. Minutes to complete discharge: 45 Discharge Summary Reason For Visit: L LOWER LOBE PNEUMONIA Current Active Problems Coughing (Acute) Deep vein blood clot of right lower extremity (Acute) Left lower lobe pneumonia (Acute) Leukocytosis (Acute) Pleural effusion (Acute) Pneumonia (Acute) Shortness of breath (Acute) Urinary tract infection (Acute) Anxiety (Chronic) COPD (chronic obstructive pulmonary disease) (Chronic) COPD mixed type (Chronic) DVT prophylaxis (Chronic) Dementia (Chronic) Hypercholesteremia (Chronic) Hypertension (Chronic) Hypothyroid (Chronic) Lung nodule (Chronic) Condition: Stable - Instructions Diet, Activity, Other Instructions: You were admitted to the hospital after you fell down, and you were found to have a possible pneumonia, urinary tract infection, and a clot in your right leg. You were given antibiotics for your infections and a blood thinner for your clot. 1. Follow up with your PCP, Dr. Oakes, within one week. Please have your CBC checked to ensure resolution of leukocytosis. 2. Follow up with pulmonology in one week. If you develop any new, worsening, or concerning symptoms such as shortness of breath, fevers, or chest pain, return to the ED. Referrals: Christina Oakes MD [Staff Physician] - Kurt Mehta MD [Primary Care Provider] - Disposition: [facility] - Home Medications Comprehensive Discharge Medication List: Ambulatory Orders Aa/Hydrolyzed Collagen, Whey [Lps 15-30 Liquid] 30 ml PO DAILY 01/12/17 Acetaminophen [Tylenol] 650 mg PO QID PRN 01/12/17 Albuterol Sulfate [Proventil HFA Inhaler -] 1 - 2 inh PO QID PRN 01/12/17 Alprazolam [Xanax] 0.25 mg PO TID 01/12/17 Aspirin [Children's Aspirin] 81 mg PO DAILY 01/12/17 Atorvastatin Ca [Lipitor] 10 mg PO HS 01/12/17 Calcium Carbonate/Vitamin D3 [Oyster Shell 500-Vit D3 200 Tb] 1 each PO BID Diltiazem Cd [Cardizem Cd -] 240 mg PO DAILY 01/12/17 Docusate Sodium 200 mg PO DAILY 01/12/17 Donepezil HCl [Aricept] 10 mg PO DAILY 01/12/17 Escitalopram Oxalate [Lexapro -] 10 mg PO DAILY 01/12/17 Gabapentin 300 mg PO BID 01/12/17 Levothyroxine [Synthroid -] 75 mcg PO DAILY 01/12/17 Loratadine [Allergy] 10 mg PO DAILY 01/12/17 Memantine HCl [Namenda -] 10 mg PO BID 01/12/17 Multivitamin with Iron [Daily Mabel with Iron] 1 each PO DAILY 01/12/17 Mycophenolate Mofetil [Cellcept] 500 mg PO DAILY 01/12/17 Olopatadine HCl [Pataday] 1 ml OU DAILY 01/12/17 Oxybutynin Chloride [Oxybutynin Chloride ER] 5 mg PO DAILY 01/12/17 Polyethylene Glycol 3350 [Miralax 119 gm Btl -] 17 gm PO DAILY 01/12/17 Sennosides [Senna] 17.2 mg PO HS 01/12/17 Prednisone 15 mg PO DAILY #20 tablet 01/16/17 Budesonide/Formeterol Fumarate [SYMBICORT 80/4.5mcg -] 2 puff IH BID #1 inhaler 01/17/17 Tiotropium [place] [Spiriva] 18 mcg IH DAILY 03/16/17 Rivaroxaban [Xarelto -] 20 mg PO DAILY #14 tablet 04/18/17 This patient is new to me today: No Emergency Visit: Yes ED Registration Date: 04/12/17 Care time: The patient presented to the Emergency Department on the above date and was hospitalized for further evaluation of their emergent condition. Critical Care patient: No - Discharge Referral Referred to [facility] No
[2017-04-18 16:06] VITALS: BP 112/67; PULSE 87; TEMP 98.3
--- NOTE | 2017-04-18 16:28 | PN ---
Teaching Attending Note Name of Resident: Wander Arias ATTENDING PHYSICIAN STATEMENT I saw and evaluated the patient. I reviewed the resident's note and discussed the case with the resident. I agree with the resident's findings and plan as documented. SUBJECTIVE: Patient is confused. She has no complaints. OBJECTIVE: Vital Signs Period Temp Pulse Resp BP Sys/Bahena Pulse Ox Last 24 Hr 97.7 F-99.2 F 81-98 18-18 135-149/72-87 96-96 HEART: S1S2, RRR LUNGS: Bilateral rhonchi ABDOMEN: Soft, non-tender, non-distended, normal BS EXTREMITIES: No edema Current Medications Generic Name Dose Route Start Last Admin Trade Name Freq PRN Reason Stop Dose Admin Acetaminophen 650 mg 04/12/17 15:37 04/15/17 20:05 Tylenol - PO 650 mg Q4H PRN Administration FEVER OR PAIN Alprazolam 0.25 mg 04/12/17 15:45 04/18/17 14:07 Xanax - PO 0.25 mg TID BEVERLY Administration Amino Acids 30 ml 04/13/17 10:00 04/18/17 09:22 Prosource No Carb Liquid Pkt PO 30 ml DAILY BEVERLY Administration Aspirin 81 mg 04/13/17 10:00 04/18/17 09:19 Asa - PO 81 mg DAILY BEVERLY Administration Atorvastatin Calcium 10 mg 04/12/17 22:00 04/17/17 21:36 Lipitor - PO 10 mg HS BEVERLY Administration Bacitracin 1 applic 04/17/17 16:45 04/18/17 09:33 Bacitracin - TP Not Given DAILY BEVERLY Budesonide/Formoterol Fumarate 2 puff 04/12/17 22:00 04/18/17 09:23 Symbicort 80/4.5mcg - IH 2 puff BID BEVERLY Administration Calcium Carbonate/Cholecalciferol 1 tab 04/12/17 22:00 04/18/17 09:20 Os-Juan 500+D - PO 1 tab BID BEVERLY Administration Diltiazem HCl 240 mg 04/13/17 10:00 04/18/17 09:21 Cardizem Cd - PO 240 mg DAILY BEVERLY Administration Docusate Sodium 200 mg 04/12/17 15:45 04/18/17 09:19 Colace - PO 200 mg DAILY BEVERLY Administration Donepezil HCl 10 mg 04/13/17 10:00 04/18/17 09:20 Aricept - PO 10 mg DAILY BEVERLY Administration Enoxaparin Sodium 60 mg 04/16/17 22:00 04/18/17 09:32 Lovenox - SQ 60 mg BID BEVERLY Administration Escitalopram Oxalate 10 mg 04/12/17 15:45 04/18/17 09:19 Lexapro - PO 10 mg DAILY BEVERLY Administration Gabapentin 300 mg 04/12/17 22:00 04/18/17 09:19 Neurontin - PO 300 mg BID BEVERLY Administration Guaifenesin 600 mg 04/12/17 22:00 04/18/17 09:21 Mucinex - PO 600 mg BID BEVERLY Administration Levothyroxine Sodium 75 mcg 04/13/17 07:00 04/18/17 06:48 Synthroid - PO 75 mcg DAILY@0700 BEVERLY Administration Loratadine 10 mg 04/13/17 10:00 04/18/17 09:20 Claritin - PO 10 mg DAILY BEVERLY Administration Memantine 10 mg 04/12/17 22:00 04/18/17 09:19 Namenda - PO 10 mg BID BEVERLY Administration Multivitamins/Minerals 1 each 04/13/17 10:00 04/18/17 09:20 Theragran-M PO 1 each DAILY BEVERLY Administration Mycophenolate Mofetil 500 mg 04/12/17 15:45 04/18/17 09:22 Cellcept - PO 500 mg DAILY BEVERLY Administration Nitrofurantoin Macrocrystals 50 mg 04/14/17 18:00 04/18/17 12:20 Macrodantin - PO 04/18/17 23:59 50 mg Q6HPO BEVERLY Administration Polyethylene Glycol 17 gm 04/13/17 10:00 04/18/17 09:36 Miralax (For Daily Use) - PO 17 gm DAILY BEVERLY Administration Potassium Chloride 20 meq 04/16/17 13:00 04/18/17 09:20 K-Dur - PO 20 meq DAILY BEVERLY Administration Potassium Phos/Sodium Phos 1 packet 04/14/17 10:00 04/18/17 09:22 Phos-Nak Packet - PO 1 packet BID BEVERLY Administration Prednisone 15 mg 04/12/17 15:45 04/18/17 09:18 Deltasone - PO 15 mg DAILY BEVERLY Administration Ranitidine HCl 150 mg 04/12/17 22:00 04/18/17 09:20 Zantac - PO 150 mg BID BEVERLY Administration Senna 2 tab 04/12/17 22:00 04/17/17 21:36 Senna - PO 2 tab HS BEVERLY Administration Solifenacin 5 mg 04/13/17 10:00 04/18/17 09:18 Vesicare - PO 5 mg DAILY BEVERLY Administration Tiotropium [place] 1 puff 04/13/17 10:00 04/18/17 09:23 Spiriva - IH 1 inh DAILY BEVERLY Administration ASSESSMENT AND PLAN: 1. Acute exacerbation of COPD - Continue Prednisone, Symbicort, Spiriva 2. Chronic hypoxic respiratory failure - Continue oxygen 3. ESBL UTI - Continue Nitrofurantoin 4. LLE DVT - Continue Lovenox - Transition to Xarelto 5. Alzheimer dementia - Continue Aricept, Namenda 6. Anxiety disorder - Continue Lexapro, Xanax 7. Granulomatosis with polyangiitis - Continue Cellcept, Prednisone 8. Hypothyroidism - Continue Synthroid 9. Hyperlipidemia - Continue Lipitor 10. HTN - Continue Cardizem CD 11. GERD - Continue Zantac
== END 2017-04-18 18:18 | DRG 871 ==
LOC: JER 05:52 → JERBED 11:29 → J5S 14:36
PROVIDERS: ADMIT Internal Medicine; ATTEND Internal Medicine
DX: A41.89 Other specified sepsis (principal); J18.1 Lobar pneumonia, unspecified organism; M31.30 Wegener's granulomatosis without renal involvement; J44.1 Chronic obstructive pulmonary disease with (acute) exacerbation; N39.0 Urinary tract infection, site not specified; I82.491 Acute embolism and thrombosis of other specified deep vein of right lower extremity; J96.11 Chronic respiratory failure with hypoxia; I25.10 Atherosclerotic heart disease of native coronary artery without angina pectoris; G30.8 Other Alzheimer's disease; F02.80 Dementia in other diseases classified elsewhere, unspecified severity, without behavioral disturbance, psychotic disturbance, mood disturbance, and anxiety; I10 Essential (primary) hypertension; E78.5 Hyperlipidemia, unspecified; K21.9 Gastro-esophageal reflux disease without esophagitis; E03.9 Hypothyroidism, unspecified; F41.8 Other specified anxiety disorders; N32.81 Overactive bladder; E87.6 Hypokalemia; K59.09 Other constipation; I27.20 Pulmonary hypertension, unspecified; D64.9 Anemia, unspecified; M21.379 Foot drop, unspecified foot; I77.6 Arteritis, unspecified; B96.29 Other Escherichia coli [E. coli] as the cause of diseases classified elsewhere; M79.89 Other specified soft tissue disorders; R00.0 Tachycardia, unspecified; Z99.81 Dependence on supplemental oxygen; Z85.72 Personal history of non-Hodgkin lymphomas; Z66 Do not resuscitate; Z87.891 Personal history of nicotine dependence; Z85.118 Personal history of other malignant neoplasm of bronchus and lung
CPT/HCPCS: 36415; 70450-TC; 71010-TC; 72170-TC; 80048; 80053; 81003; 82803; 83605; 83735; 83880; 84100; 85025; 85610; 87040; 87086; 87186; 87804; 87899; 93005; 93010; 93970-TC; 94010; 94640; 97116-GP; 97161-GP; 99284-25; J7517

== ENCOUNTER 2017-05-16 17:59 | Emergency (ER) | payer OTHER ==
[2017-05-16 18:09] VITALS: BP 121/61; PULSE 93; TEMP 98.1; BMI 26.6
--- NOTE | 2017-05-16 19:12 | PDOC ---
History of Present Illness - General Chief Complaint: Eye Problem Stated Complaint: POSSIBLE BLOOD CLOT Time Seen by Provider: 05/16/17 18:57 - History of Present Illness Initial Comments: 05/16/17 19:40 The patient is an 87 year old female with a history of CAD (on aspirin), COPD/ asthma on 2L O2 dependent, Alzheimers, dementia, lymphoma, lung CA, HTN, HLD, GERD, hypothyroidism who presents from her NH for evaluation of a red left eye. The patient reports that she usually has some irritation of her left eye and rubs it occasionally and noted that it was red today. She states that she has no pain or vision changes and does not know why the CO sent her to the ER. She denies fevers, chills, SOB, chest pain, abdominal pain, nausea, vomiting, or headache. Past History - Past Medical History Allergies/Adverse Reactions: Allergies Allergy/AdvReac Type Severity Reaction Status Date / Time levofloxacin [From Levaquin] AdvReac Unknown Itching Verified 04/12/17 05:53 Home Medications: Ambulatory Orders Aa/Hydrolyzed Collagen, Whey [Lps 15-30 Liquid] 30 ml PO DAILY 01/12/17 Acetaminophen [Tylenol] 650 mg PO QID PRN 01/12/17 Albuterol Sulfate [Proventil HFA Inhaler -] 1 - 2 inh PO QID PRN 01/12/17 Alprazolam [Xanax] 0.25 mg PO TID 01/12/17 Aspirin [Children's Aspirin] 81 mg PO DAILY 01/12/17 Atorvastatin Ca [Lipitor] 10 mg PO HS 01/12/17 Calcium Carbonate/Vitamin D3 [Oyster Shell 500-Vit D3 200 Tb] 1 each PO BID Diltiazem Cd [Cardizem Cd -] 240 mg PO DAILY 01/12/17 Docusate Sodium 200 mg PO DAILY 01/12/17 Donepezil HCl [Aricept] 10 mg PO DAILY 01/12/17 Escitalopram Oxalate [Lexapro -] 10 mg PO DAILY 01/12/17 Gabapentin 300 mg PO BID 01/12/17 Levothyroxine [Synthroid -] 75 mcg PO DAILY 01/12/17 Loratadine [Allergy] 10 mg PO DAILY 01/12/17 Memantine HCl [Namenda -] 10 mg PO BID 01/12/17 Multivitamin with Iron [Daily Mabel with Iron] 1 each PO DAILY 01/12/17 Mycophenolate Mofetil [Cellcept] 500 mg PO DAILY 01/12/17 Olopatadine HCl [Pataday] 1 ml OU DAILY 01/12/17 Oxybutynin Chloride [Oxybutynin Chloride ER] 5 mg PO DAILY 01/12/17 Polyethylene Glycol 3350 [Miralax 119 gm Btl -] 17 gm PO DAILY 01/12/17 Sennosides [Senna] 17.2 mg PO HS 01/12/17 Budesonide/Formeterol Fumarate [SYMBICORT 80/4.5mcg -] 2 puff IH BID #1 inhaler 01/17/17 Tiotropium [place] [Spiriva] 18 mcg IH DAILY 03/16/17 Prednisone 15 mg PO DAILY #20 tablet 04/18/17 Rivaroxaban [Xarelto -] 20 mg PO DAILY #14 tablet 04/18/17 Anemia: No Asthma: Yes Cancer: Yes CVA: No COPD: Yes CHF: No Dementia: Yes GI Disorders: Yes (GERD) Disorders: Yes (BLADDER DROP) HTN: Yes Hypercholesterolemia: Yes 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, anxiety) Thyroid Disease: Yes (hypothyroid) - Surgical History Lung Surgery: Yes - Immunization History Td Vaccination: (unknown) Immunization Up to Date: Yes - Suicide/Smoking/Psychosocial Hx Smoking Status: No Smoking History: Never smoked Years of Tobacco Use: 40 Have you smoked in the past 12 months: No Number of Cigarettes Smoked Daily: 0 If you are a former smoker, when did you quit?: 45 years ago Cigars Per Day: 0 Information on smoking cessation initiated: No Hx Alcohol Use: No Drug/Substance Use Hx: No Substance Use Type: None Hx Substance Use Treatment: No Review of Systems - Review of Systems Comments:: 05/16/17 19:44 Constitutional: No fevers, chills, fatigue, malaise HEENT: Red left eye. No Rhinorrhea, nasal congestion, visual changes Cardiovascular: No chest pain, syncope, palpitations, lightheadedness Respiratory: No Cough, SOB, Hemoptysis, Gastrointestinal: No Abdominal pain, Nausea, Vomiting, Constipation, Diarrhea, Melena Genitourinary: No Dysuria, Frequency, Urgency, Hesitancy, Hematuria, Flank pain Musculoskeletal: No Myalgia, arthralgia Skin: No rashes, itching, bruising, pallor Neurologic: No Headache, Dizziness, Numbness, Weakness, or Tingling Psychiatric: No Hallucinations. No SI or HI *Physical Exam - Vital Signs Last Vital Signs Temp Pulse Resp BP Pulse Ox 98.1 F 93 H 20 121/61 100 05/16/17 18:05 05/16/17 18:05 05/16/17 18:05 05/16/17 18:05 05/16/17 18:05 - Physical Exam Comments: 05/16/17 19:45 General Appearance: Nourished. No Apparent Distress HEENT: EOMI, [place]. Subconjuctival hemorrhage noted on exam of the left eye. No decreased visual acuity from baseline. No Pharyngeal Erythema, Tonsillar Exudate, Tonsillar Erythema Neck: No Cervical Lymphadenopathy Respiratory/Chest: Lungs Clear, Normal Breath Sounds. No Crackles, Rales, Rhonchi, Wheezing Cardiovascular: Regular Rhythm, Regular Rate. No Murmur, Gallops, Rubs Gastrointestinal/Abdominal: Normal Bowel Sounds, Soft. No Guarding, Rebound, Tenderness Musculoskeletal: No CVA Tenderness Extremity: Normal Capillary Refill Integumentary: Normal Color, Dry, Warm Neurologic: Fully Oriented, Alert, Normal Mood/Affect, Normal Response, Medical Decision Making - Medical Decision Making 05/16/17 19:46 The patient is an 87 year old female with a history of CAD (on aspirin), COPD/ asthma on 2L O2 dependent, Alzheimers, dementia, lymphoma, lung CA, HTN, HLD, GERD, hypothyroidism who presents from her NH for evaluation of a red left eye. Given the patient's physical exam demonstrating an obvious subconjunctival hemorrhage without any changes in visual acuity, it is likely her symptoms are due to an isolated subconjunctival hemorrhage. The patient has no other complaints and an otherwise normal exam. The patient is requesting to be sent home. We are comfortable discharging the patient home at this time. The patient's subconjenctival hemorrhage should resolve on it's own. We discussed return precautions with the patient who voiced understanding. *DC/Admit/Observation/Transfer Diagnosis at time of Disposition: Subconjunctival bleed Qualifiers: Laterality: left Qualified Code(s): H11.32 - Conjunctival hemorrhage, left eye - Discharge Dispostion Disposition: HOME Condition at time of disposition: Good Admit: No - Referrals Referrals: Kurt Mehta MD [Primary Care Provider] - - Patient Instructions Printed Discharge Instructions: DI for Subconjunctival Hemorrhage Additional Instructions: Please return to the ER if you experience concerning or worsening symptoms including vision changes or painful eye. Your symptoms are likely due to a subconjuctival hemorrhage and should resolve on its own. Please make sure that you schedule a follow up appointment with your primary care provider within 1 week to discuss your ER visit and your symptoms. - Post Discharge Activity
--- NOTE | 2017-05-16 19:37 | PDOC ---
Attending Attestation - Resident Resident Name: Pravin Aldrich - ED Attending Attestation I have performed the following: I have examined & evaluated the patient, The case was reviewed & discussed with the resident, I agree w/resident's findings & plan, Exceptions are as noted - HPI HPI: 05/16/17 19:32 Red Eye, No Pain - Physicial Exam PE: 05/16/17 19:32 Subconjunctival Hemorrhage - Medical Decision Making 05/16/17 19:[address] Aldrich assessment and plan
== END 2017-05-16 21:00 ==
LOC: JER 17:59
DX: H11.32 Conjunctival hemorrhage, left eye (principal); I25.10 Atherosclerotic heart disease of native coronary artery without angina pectoris; I10 Essential (primary) hypertension; J44.9 Chronic obstructive pulmonary disease, unspecified; J45.909 Unspecified asthma, uncomplicated; Z99.81 Dependence on supplemental oxygen; G30.8 Other Alzheimer's disease; F02.80 Dementia in other diseases classified elsewhere, unspecified severity, without behavioral disturbance, psychotic disturbance, mood disturbance, and anxiety; E78.00 Pure hypercholesterolemia, unspecified; K21.9 Gastro-esophageal reflux disease without esophagitis; E03.9 Hypothyroidism, unspecified; F41.9 Anxiety disorder, unspecified; Z85.3 Personal history of malignant neoplasm of breast; Z85.72 Personal history of non-Hodgkin lymphomas
CPT/HCPCS: 99281-25

== ENCOUNTER 2017-05-25 11:16 | Inpatient (IN) | payer OTHER ==
[2017-05-25 11:38] VITALS: BMI 25.2
[2017-05-25 12:05] LABS: EOSINOPHIL 0.2 % (0-4.5); MCHC 31.5 g/dl (32.0-36.0); MEAN CELL VOLUME 85.6 fl (80-96); MEAN PLT VOLUME 8.2 fl (7.5-11.1); NEUTROPHILS 76.1 % (42.8-82.8); PLATELET COUNT 317 K/MM3 (134-434); RDW 15.7 % (11.6-15.6); WHITE BLOOD COUNT 21.1 K/mm3 (4.0-10.0)
[2017-05-25 12:08] LABS: VENOUS BLOOD GAS HCO3 34.6 meq/L (19-25); VENOUS PH 7.37 (7.32-7.42)
--- NOTE | 2017-05-25 12:21 | PDOC ---
History of Present Illness - General Stated Complaint: INJURY Time Seen by Provider: 05/25/17 11:26 - History of Present Illness Initial Comments: 05/25/17 11:42 87 yo F with h/o HLD, HTN, and COPD who presents with left elbow pain. Pt. reports mechanical fall 1 week [employer] with landing on R elbow while attempting to ambulate with walker. Now complains of increased right arm swelling and pain. Denies numbness/tingling, N/V, fevers/chills, [place]. vision changes. weakness, lightheadedness, LOC, back pain, neck pain. Denies anticoagulation use. Denies analgesia or ASA use. No CP/SOB, urinary complaints, abdominal pain , diarrhea, constipation. Past History - Past Medical History Allergies/Adverse Reactions: Allergies Allergy/AdvReac Type Severity Reaction Status Date / Time levofloxacin [From Levaquin] AdvReac Unknown Itching Verified 04/12/17 05:53 Home Medications: Ambulatory Orders Aa/Hydrolyzed Collagen, Whey [Lps 15-30 Liquid] 30 ml PO DAILY 01/12/17 Acetaminophen [Tylenol] 650 mg PO QID PRN 01/12/17 Albuterol Sulfate [Proventil HFA Inhaler -] 1 - 2 inh PO QID PRN 01/12/17 Alprazolam [Xanax] 0.25 mg PO TID 01/12/17 Aspirin [Children's Aspirin] 81 mg PO DAILY 01/12/17 Atorvastatin Ca [Lipitor] 10 mg PO HS 01/12/17 Calcium Carbonate/Vitamin D3 [Oyster Shell 500-Vit D3 200 Tb] 1 each PO BID Diltiazem Cd [Cardizem Cd -] 240 mg PO DAILY 01/12/17 Docusate Sodium 200 mg PO DAILY 01/12/17 Donepezil HCl [Aricept] 10 mg PO DAILY 01/12/17 Escitalopram Oxalate [Lexapro -] 10 mg PO DAILY 01/12/17 Gabapentin 300 mg PO BID 01/12/17 Levothyroxine [Synthroid -] 75 mcg PO DAILY 01/12/17 Loratadine [Allergy] 10 mg PO DAILY 01/12/17 Memantine HCl [Namenda -] 10 mg PO BID 01/12/17 Multivitamin with Iron [Daily Mabel with Iron] 1 each PO DAILY 01/12/17 Mycophenolate Mofetil [Cellcept] 500 mg PO DAILY 01/12/17 Olopatadine HCl [Pataday] 1 ml OU DAILY 01/12/17 Oxybutynin Chloride [Oxybutynin Chloride ER] 5 mg PO DAILY 01/12/17 Polyethylene Glycol 3350 [Miralax 119 gm Btl -] 17 gm PO DAILY 01/12/17 Sennosides [Senna] 17.2 mg PO HS 01/12/17 Budesonide/Formeterol Fumarate [SYMBICORT 80/4.5mcg -] 2 puff IH BID #1 inhaler 01/17/17 Tiotropium [employer] [Spiriva] 18 mcg IH DAILY 03/16/17 Prednisone 15 mg PO DAILY #20 tablet 04/18/17 Rivaroxaban [Xarelto -] 20 mg PO DAILY #14 tablet 04/18/17 Anemia: No Asthma: Yes Cancer: Yes CVA: No COPD: Yes CHF: No Dementia: Yes GI Disorders: Yes (GERD) Disorders: Yes (BLADDER DROP) HTN: Yes Hypercholesterolemia: Yes 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, anxiety) Thyroid Disease: Yes (hypothyroid) - Surgical History Lung Surgery: Yes - Immunization History Td Vaccination: (unknown) Immunization Up to Date: Yes - Suicide/Smoking/Psychosocial Hx Smoking Status: No Smoking History: Former smoker Years of Tobacco Use: 40 Have you smoked in the past 12 months: No Number of Cigarettes Smoked Daily: 0 If you are a former smoker, when did you quit?: 45 years ago Cigars Per Day: 0 Information on smoking cessation initiated: No Hx Alcohol Use: No Drug/Substance Use Hx: No Substance Use Type: None Hx Substance Use Treatment: No Review of Systems - Review of Systems Comments:: 05/25/17 12:36 GENERAL/CONSTITUTIONAL: No fever or chills. No weakness. HEAD, EYES, EARS, NOSE AND THROAT: No change in vision. No ear pain or discharge. No sore throat.- CARDIOVASCULAR: No chest pain or shortness of breath RESPIRATORY: No cough, wheezing, or hemoptysis. GASTROINTESTINAL: No nausea, vomiting, diarrhea or constipation. GENITOURINARY: No dysuria, frequency, or change in urination. MUSCULOSKELETAL:+ Right Elbow Pain. No other joint or muscle swelling or pain. No neck or back pain. SKIN: No rash NEUROLOGIC: No headache, vertigo, loss of consciousness, or change in strength/ sensation. ENDOCRINE: No increased thirst. No abnormal weight change HEMATOLOGIC/LYMPHATIC: No anemia, easy bleeding, or history of blood clots. ALLERGIC/IMMUNOLOGIC: No hives or skin allergy. *Physical Exam - Vital Signs Last Vital Signs Temp Pulse Resp BP Pulse Ox 100.0 F H 108 H 20 116/70 99 05/25/17 11:33 05/25/17 11:33 05/25/17 11:33 05/25/17 11:33 05/25/17 11:33 - Physical Exam Comments: 05/25/17 12:37 GENERAL: Awake, alert, and fully oriented, in no acute distress HEAD: No signs of trauma, normocephalic, atraumatic EYES: PERRLA, EOMI, sclera anicteric, conjunctiva clear ENT: Hearing grossly normal, nares patent, oropharynx clear without exudates. Moist mucosa NECK: Normal ROM, supple, no JVD, or masses LUNGS: No distress, speaks full sentences, clear to auscultation bilaterally HEART: Regular rate and rhythm, normal S1 and S2, no murmurs, rubs or gallops, peripheral pulses normal and equal bilaterally. EXTREMITIES : + Left elbow warmth/swelling/erythema/ttp. + right arm erythema extending from elbow to right volar aspect of forearm. + Olecranon swelling. Normal inspection, Normal range of motion, no edema. No clubbing or cyanosis. NEUROLOGICAL: Cranial nerves II through XII grossly intact. Normal speech, normal gait, no focal sensorimotor deficits SKIN: Warm, Dry, normal turgor, no rashes or lesions noted. ED Treatment Course - LABORATORY CBC & Chemistry Diagram: 05/25/17 11:54 05/25/17 11:54 Medical Decision Making - Medical Decision Making 05/25/17 12:40 87 yo F with h/o HLD, HTN, and COPD who presents with left elbow pain s/p mechanical fall 1 week [employer] while attempting to ambulate with walker. Now complains of increased right arm swelling and pain. Denies numbness/tingling, N/ V, fevers/chills, T[place]O, back pain, neck pain, CP/SOB, urinary or GI complaints. Physical exam with right elbow warmth/swelling/erythema/ttp and surrounding non demarcated erythema. Temp 101.1, and Mildly tachycardic on arrival. Phyiscal exam suggestive of olecranon bursitis with surrounding cellulits. Will obtain plain films of elbow to rule out fracture. Patient with 2/4 SIRS criteria will obtain sepsis workup. ED Course: CBC, CMP, UA, Urine Cx, Blood Cx x 2 IV NS 1 L WBC: 21.1 05/25/17 12:48 CMP: Unremarkable UA: 05/25/17 12:49 Elbow Left RAD: No signs of fracture, subluxation, or bone destruction. Vancomycin 1250, Zosyn 3.375 05/25/17 13:[address] Harding. Will admit this patient to Hospitalist group. 05/25/17 13:51 Paged Ortho ( MR. Nga myers ) Dr. Real to call back. 05/25/17 14:[address] Real will continue the IV antibiotics and if no improvement he will perform arthrocentesis of the joint space. *DC/Admit/Observation/Transfer Diagnosis at time of Disposition: Cellulitis of upper extremity Qualifiers: Laterality: left Qualified Code(s): L03.114 - Cellulitis of left upper limb - Discharge Dispostion Admit: Yes - Referrals - Patient Instructions - Post Discharge Activity
[2017-05-25 12:26] LABS: INR 1.26 (0.82-1.09); PROTHROMBIN TIME (PATIENT) 14.2 SEC (9.98-11.88)
[2017-05-25] MEDS ORDERED: VANCOMYCIN 1,250 MG in DEXTROSE 5%-WATER - 250 ML IVPB ONE (12:26)
[2017-05-25 12:29] LABS: ACTIVATED PTT 27.7 SECONDS (26.9-34.4)
[2017-05-25 12:30] LABS: ALBUMIN 3.1 g/dl (3.4-5.0); ANION GAP 6 (8-16); CALCIUM 8.8 mg/dL (8.5-10.1); CO2 33 mmol/L (21-32); GLUCOSE,RANDOM 97 mg/dL (74-106)
[2017-05-25] MEDS ORDERED: PIPERACILLIN/TAZOB 3.375 GM 50 ML IVPB ONE (12:30)
[2017-05-25 12:33] LABS: BILIRUBIN,TOTAL 0.4 mg/dL (0.2-1.0); CREATININE 0.9 mg/dL (0.55-1.02); SGPT/ALT 22 U/L (12-78); TOT PROT 6.4 g/dl (6.4-8.2)
[2017-05-25 12:36] LABS: ALK PHOS 54 U/L (45-117); TROPONIN I < 0.02 ng/ml (0.00-0.05)
[2017-05-25 12:40] LABS: CPK 63 IU/L (26-192); SGOT/AST 30 U/L (15-37)
[2017-05-25] MEDS ORDERED: PIPERACILLIN/TAZOB 3.375 GM 3.375 GM/50 ML BAG IVPB ONE (12:50)
[2017-05-25] MEDS ORDERED: ACETAMINOPHEN 1000 MG/100 ML VIAL (NON FORMULARY) IVPB ONE (13:02)
[2017-05-25] MEDS ORDERED: ACETAMINOPHEN INJECTION 100 ML IVPB ONE (13:03)
--- NOTE | 2017-05-25 13:03 | PDOC ---
Attending Attestation - Resident Resident Name: JuvenalMauriceKj - ED Attending Attestation I have performed the following: I have examined & evaluated the patient, The case was reviewed & discussed with the resident, I agree w/resident's findings & plan, Exceptions are as noted - HPI HPI: 05/25/17 12:59 87-year-old female with history of hypertension, hyperlipidemia, COPD presents with left elbow cellulitis and fevers. The patient had fell approximately one week ago landed on her left elbow. Since then, patient has been doing unremarkable. Noted today that she had extensive cellulitis and erythema the left elbow and likely olecranon bursitis. I developed of tactile fever and the patient was sent to the ED. Patient has history of Yoly's granulomatosis and is currently on CellCept and prednisone. - Physicial Exam PE: 05/25/17 12:59 GENERAL: Awake, alert, and fully, in no acute distress. HEAD: No signs of trauma EYES: PERRLA, EOMI, sclera anicteric, conjunctiva clear ENT: Auricles normal inspection, hearing grossly normal, nares patent, oropharynx clear without exudates. NECK: Normal ROM, supple, no lymphadenopathy, JVD, or masses LUNGS: Breath sounds equal, clear to auscultation bilaterally. No wheezes, and no crackles HEART: Regular rate and rhythm, normal S1 and S2, no murmurs, rubs or gallops ABDOMEN: Soft, nontender, normoactive bowel sounds. No guarding, no rebound. No masses EXTREMITIES: LUE: 2+ radial pulse. Sensation intact. +olecranon bursitis L elbow. Diffuse extensive erythema left elbow extending to the forearm. FROM left elbow. Warm to touch NEUROLOGICAL: Cranial nerves II through XII grossly intact. Normal speech, normal gait SKIN: Warm, Dry, normal turgor, no rashes or lesions noted. - Medical Decision Making 05/25/17 13:01 Vital Signs Temp Pulse Resp BP Pulse Ox 101.1 F H 108 H 20 116/70 99 05/25/17 12:09 05/25/17 11:33 05/25/17 11:33 05/25/17 11:33 05/25/17 11:39 Patient likely with cellulitis and olecranon bursitis. There is no region of the elbow that could have a needle placed safely given the erythema.. Given that she is immunosuppressed from her medications, we'll need to give vancomycin and Zosyn. The patient should be admitted to the hospital for further evaluation and management. Heart Score/ECG Review #1 ECG reviewed & interpreted by me at: 12:00 05/25/17 13:05 NSR 103, nonspecific ST and T wave abnrormality, QTC 429 msec
[2017-05-25] MEDS ORDERED: SODIUM CHLORIDE 1,000 ML IV STA (14:03)
--- NOTE | 2017-05-25 14:07 | HP ---
CHIEF COMPLAINT: left arm swelling PCP: Dr. Mehta HISTORY OF PRESENT ILLNESS: 87 year female from [place], sent over due to left elbow pain, swelling, edema and erythema. Patient fell two weeks ago and landed on her left elbow. She did not seek any medical attention at that point. Patient daughter here at bedside aiding with history. Patient has baseline mild Alzheimer's, poor historian. Patient denies fever, chills, chest pain sob, changes in bowel or bladder, denies any other associated injury. ER course was notable for: (1)leukocytosis, fever 101.1 (2)elbow xray negative for fracture/bone destruction; Positive for left elbow, ulnar swelling (3)given stat vanc/zosyn; blood cultues taken Recent Travel: no PAST MEDICAL HISTORY: CAD, COPD/asthma on home O2, Alzheimer's dementia, pulmonary lymphoma s/p lobectomy, HTN, HLD, GERD, hypothyroidism, blas's granulomatosis PAST SURGICAL HISTORY: Social History: Smoking:previous Alcohol:no Drugs: no Family History: Allergies levofloxacin [From [employer]] Adverse Reaction (Unknown, Verified 04/12/17 05:53) Itching HOME MEDICATIONS: Home Medications Medication Instructions Recorded Aa/Hydrolyzed Collagen, Whey [Lps 30 ml PO DAILY 01/12/17 15-30 Liquid] Acetaminophen [Tylenol] 650 mg PO QID PRN 01/12/17 Albuterol Sulfate [Proventil HFA 1 - 2 inh PO QID PRN 01/12/17 Inhaler -] Alprazolam [Xanax] 0.25 mg PO TID 01/12/17 Aspirin [Children's Aspirin] 81 mg PO DAILY 01/12/17 Atorvastatin Ca [Lipitor] 10 mg PO HS 01/12/17 Calcium Carbonate/Vitamin D3 1 each PO BID 01/12/17 [Oyster Shell 500-Vit D3 200 Tb] Diltiazem Cd [Cardizem Cd -] 240 mg PO DAILY 01/12/17 Docusate Sodium 200 mg PO DAILY 01/12/17 Donepezil HCl [Aricept] 10 mg PO DAILY 01/12/17 Escitalopram Oxalate [Lexapro -] 10 mg PO DAILY 01/12/17 Gabapentin 300 mg PO BID 01/12/17 Levothyroxine [Synthroid -] 75 mcg PO DAILY 01/12/17 Loratadine [Allergy] 10 mg PO DAILY 01/12/17 Memantine HCl [Namenda -] 10 mg PO BID 01/12/17 Multivitamin with Iron [Daily Mabel 1 each PO DAILY 01/12/17 with Iron] Mycophenolate Mofetil [Cellcept] 500 mg PO DAILY 01/12/17 Olopatadine HCl [Pataday] 1 ml OU DAILY 01/12/17 Oxybutynin Chloride [Oxybutynin 5 mg PO DAILY 01/12/17 Chloride ER] Polyethylene Glycol 3350 [Miralax 17 gm PO DAILY 01/12/17 119 gm Btl -] Sennosides [Senna] 17.2 mg PO HS 01/12/17 Budesonide/Formeterol Fumarate 2 puff IH BID #1 inhaler 01/17/17 [SYMBICORT 80/4.5mcg -] Tiotropium [employer] [Spiriva] 18 mcg IH DAILY 03/16/17 Prednisone 15 mg PO DAILY #20 tablet 04/18/17 Rivaroxaban [Xarelto -] 20 mg PO DAILY #14 tablet 04/18/17 REVIEW OF SYSTEMS CONSTITUTIONAL: Positive: fever, generalized weakness Absent: chills, diaphoresis, malaise, loss of appetite, weight change HEENT: Absent: rhinorrhea, nasal congestion, throat pain, throat swelling, difficulty swallowing, mouth swelling, ear pain, eye pain, visual changes CARDIOVASCULAR: Absent: chest pain, syncope, palpitations, irregular heart rate, lightheadedness , peripheral edema RESPIRATORY: Absent: cough, shortness of breath, dyspnea with exertion, orthopnea, wheezing, stridor, hemoptysis GASTROINTESTINAL: Absent: abdominal pain, abdominal distension, nausea, vomiting, diarrhea, constipation, melena, hematochezia GENITOURINARY: Absent: dysuria, frequency, urgency, hesitancy, hematuria, flank pain, genital pain MUSCULOSKELETAL: Positive: arthralgia, joint swelling, left arm Absent: myalgia, back pain, neck pain SKIN: Absent: rash, itching, pallor HEMATOLOGIC/IMMUNOLOGIC: Absent: easy bleeding, easy bruising, lymphadenopathy, frequent infections ENDOCRINE: Absent: unexplained weight gain, unexplained weight loss, heat intolerance, cold intolerance NEUROLOGIC: Positive: forget fullness Absent: headache, focal weakness or paresthesias, dizziness, unsteady gait, seizure, mental status changes, bladder or bowel incontinence PSYCHIATRIC: Absent: anxiety, depression, suicidal or homicidal ideation, hallucinations. PHYSICAL EXAMINATION Vital Signs - 24 hr 05/25/17 05/25/17 05/25/17 11:33 11:39 12:09 Temperature 100.0 F H 101.1 F H Pulse Rate 108 H Respiratory 20 Rate Blood Pressure 116/70 O2 Sat by Pulse 99 99 Oximetry (%) GENERAL: Awake, alert, and fully oriented, lethargic LUNGS: Breath sounds equal, clear to auscultation bilaterally. No wheezes, and no crackles. No accessory muscle use. HEART: Regular rate and rhythm, normal S1 and S2 without murmur, rub or gallop. ABDOMEN: Soft, nontender, slightly distended, normoactive bowel sounds, no guarding, no rebound, no masses. No hepatomegaly or splenomegaly. MUSCULOSKELETAL: Normal range of motion at all joints. No bony deformities or tenderness. No CVA tenderness. UPPER EXTREMITIES: 2+ pulses, warm, well-perfused. No cyanosis. No clubbing. No peripheral edema. left elbow erythema, edema, ecchymosis, mostly lateral LOWER EXTREMITIES: 2+ pulses, warm, well-perfused. No calf tenderness. No peripheral edema. NEUROLOGICAL: Cranial nerves II-XII intact. Normal speech. gait no observe; uses walker at [place] Laboratory Results - last 24 hr 05/25/17 05/25/17 05/25/17 11:54 11:54 11:54 WBC 21.1 H D RBC 3.48 L Hgb 9.4 L D Hct 29.8 L D MCV 85.6 MCH 27.0 MCHC 31.5 L RDW 15.7 H Plt Count 317 MPV 8.2 Neutrophils % 76.1 Lymphocytes % 10.8 D Monocytes % 11.9 H Eosinophils % 0.2 Basophils % 1.0 PT with INR 14.20 H INR 1.26 H PTT (Actin FS) 27.7 VBG pH 7.37 POC VBG pCO2 60.9 H* POC VBG pO2 19.9 L* D Mixed VBG HCO3 34.6 H Sodium Potassium Chloride Carbon Dioxide Anion Gap BUN Creatinine Creat Clearance w eGFR Random Glucose Lactic Acid Calcium Total Bilirubin AST ALT Alkaline Phosphatase Creatine Kinase Troponin I Total Protein Albumin Blood Type Antibody Screen 05/25/17 05/25/17 05/25/17 11:54 11:54 11:54 WBC RBC Hgb Hct MCV MCH MCHC RDW Plt Count MPV Neutrophils % Lymphocytes % Monocytes % Eosinophils % Basophils % PT with INR INR PTT (Actin FS) VBG pH POC VBG pCO2 POC VBG pO2 Mixed VBG HCO3 Sodium 140 Potassium 3.7 Chloride 101 Carbon Dioxide 33 H Anion Gap 6 L BUN 16 Creatinine 0.9 Creat Clearance w eGFR 58.95 Random Glucose 97 D Lactic Acid 0.8 Calcium 8.8 Total Bilirubin 0.4 D AST 30 D ALT 22 Alkaline Phosphatase 54 Creatine Kinase 63 Troponin I < 0.02 Total Protein 6.4 Albumin 3.1 L Blood Type A NEGATIVE Antibody Screen Negative Current Medications Generic Name Dose Route Start Last Admin Trade Name Freq PRN Reason Stop Dose Admin Acetaminophen 650 mg 05/25/17 14:19 Tylenol - PO QID PRN PAIN Albuterol Sulfate 1 - 2 puff 05/25/17 14:19 Ventolin Hfa Inhaler - IH QID PRN SHORT OF BREATH/WHEEZING Alprazolam 0.25 mg 05/25/17 14:19 Xanax - PO Q8H PRN ANXIETY Aspirin 81 mg 05/25/17 14:30 05/25/17 16:19 Asa - PO 81 mg DAILY [facility] Administration Atorvastatin Calcium 10 mg 05/25/17 22:00 Lipitor - PO HS [facility] Budesonide/Formoterol Fumarate 2 puff 05/25/17 22:00 Symbicort 80/4.5mcg - IH BID [facility] Docusate Sodium 200 mg 05/26/17 12:00 Colace - PO DAILY@1200 [facility] Donepezil HCl 10 mg 05/26/17 12:00 Aricept - PO DAILY@1200 [facility] Escitalopram Oxalate 10 mg 05/26/17 12:00 Lexapro - PO DAILY@1200 [facility] Gabapentin 300 mg 05/25/17 22:00 Neurontin - PO BID@1200,2200 [facility] Sodium Chloride 1,000 mls @ 100 mls/hr 05/25/17 15:03 Normal Saline - IV ASDIR [facility] Levothyroxine Sodium 75 mcg 05/26/17 07:00 Synthroid - PO DAILY@0700 [facility] Loratadine 10 mg 05/26/17 12:00 Claritin - PO DAILY [facility] Memantine 10 mg 05/25/17 22:00 Namenda - PO BID [facility] Non-Formulary Medication 30 ml 05/26/17 10:00 Aa/Hydrolyzed Collagen, Whey [Lps 15-30 Liquid] PO DAILY [facility] Non-Formulary Medication 1 ml 05/26/17 10:00 Olopatadine Hcl [Pataday] OU DAILY [facility] Oxybutynin Chloride 5 mg 05/26/17 12:00 Ditropan - PO DAILY@1200 [facility] Polyethylene Glycol 17 gm 05/26/17 12:00 Miralax (For Daily Use) - PO DAILY@1200 [facility] Prednisone 15 mg 05/26/17 10:00 Deltasone - PO DAILY [facility] Senna 2 tab 05/25/17 22:00 Senna - PO HS [facility] Tiotropium [employer] 1 puff 05/26/17 10:00 Spiriva - IH DAILY [facility] ASSESSMENT/PLAN: 87 year old female with a past medical history of COPD on home O2 continuous, Alzheimer's dementia, pulmonary lymphoma, HTN, HLD, HLD, 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 #sepsis secondary olecranon bursitis rule out abscess/septic joint (less likely) -wbc >20,000; LA wnl; f/u cbc; IV access ; bolus IVF; BP stable -f/u cultures -left elbow XR noted for ulnar swelling -f/u MRI -Consult ID for appropriate antibiotics -Consult Ortho for eval of septic joint #hx Of ESBL +urine 04/18: treated with nitrofurantoin -contact precautions -f/u UC #normocytic anemia: -hemoglobin 9.4 -last visit in 04/18 was 11 -may be dilutional from IVF -f/u cbc -iron studies, heme occult -transfuse threshold <7.0 #Hx of COPD on 2L [place] home O2 stable; no active issues -cont spiriva, symbicort, albuterol #Hx of Churg Eugenie: -cont home steroids and cellcept #HTN: hold antihypertensive #CAD: -cont asprin #HLD -cont lipitor #hx of Hypothyroid: cont levothyroxine #hx of right superficial femoral vein DVT -was on xarelto; now off #hx of dementia: -cont home memantine and donepezil Diet: regular Fluids: bolus NS x2 ; re eval volume status Electrolytes are wnl VTE prophylaxis: scds for now Disposition: non cardiac tele Problem List - Problem (1) Cellulitis of left elbow Code(s): L03.114 - CELLULITIS OF LEFT UPPER LIMB (2) Sepsis Code(s): A41.9 - SEPSIS, UNSPECIFIED ORGANISM (3) Bursitis due to bacterial infection Code(s): M71.10 - OTHER INFECTIVE BURSITIS, UNSPECIFIED SITE; B96.89 - OTH BACTERIAL AGENTS THE CAUSE OF DISEASES CLASSD [id number] (4) Anemia Code(s): D64.9 - ANEMIA, UNSPECIFIED (5) Leukocytosis Code(s): D72.829 - ELEVATED WHITE BLOOD CELL COUNT, UNSPECIFIED (6) COPD (chronic obstructive pulmonary disease) Code(s): J44.9 - CHRONIC OBSTRUCTIVE PULMONARY DISEASE, UNSPECIFIED Qualifiers: COPD type: unspecified COPD Qualified Code(s): J44.9 - Chronic obstructive pulmonary disease, unspecified (7) Dementia Code(s): F03.90 - UNSPECIFIED DEMENTIA WITHOUT BEHAVIORAL DISTURBANCE Qualifiers: Dementia type: unspecified type Dementia behavioral disturbance: without behavioral disturbance Qualified Code(s): F03.90 - Unspecified dementia without behavioral disturbance (8) Hypertension Code(s): I10 - ESSENTIAL (PRIMARY) HYPERTENSION (9) Hypothyroid Code(s): E03.9 - HYPOTHYROIDISM, UNSPECIFIED Visit type - Emergency Visit Emergency Visit: Yes ED Registration Date: 05/25/17 Care time: The patient presented to the Emergency Department on the above date and was hospitalized for further evaluation of their emergent condition. - New Patient This patient is new to me today: Yes Date on this admission: 05/25/17 - Critical Care Critical Care patient: No
--- NOTE | 2017-05-25 14:15 | PN ---
Teaching Attending Note Name of Resident: Harini Hernadez ATTENDING PHYSICIAN STATEMENT I saw and evaluated the patient. I reviewed the resident's note and discussed the case with the resident. I agree with the resident's findings and plan as documented. SUBJECTIVE: Patient seen and examined, daughter at bedside. Patient is oriented to self, appropriately conversant. Reports pain below left shoulder at rest and with movements. Denies any nausea, vomiting, diarrhea, dyspnea, chest pain, palpitations, decreased PO intake or urinary symptoms. As discussed with daughter, patient with a witnessed mechanical fall 10 days ago at the assisted living when had a cut below her left elbow, symptoms progressively improved and no concerns were noted. However, daughter was called today informing of patient with new fevers, left elbow/proximal forearm swelling and need for evaluation. Per daughter she has been talking with patient every day and has not had any concerns related to changes in her mental status, decreased oral intake or other symptoms till yesterday. Patient poor historian given her baseline dementia, denies any symptoms except for pain at and below left shoulder. OBJECTIVE: Vital Signs Period Temp Pulse Resp BP Sys/[place] Pulse Ox Last 24 Hr 100.0 F-101.1 F 108 20 116/70 99-99 Intake & Output 05/22/17 05/23/17 05/24/17 05/25/17 23:59 23:59 23:59 23:59 Weight 152 lb GENERAL: Awake, alert, oriented to self and daughter at bedside, in no acute distress. HEAD: Normal with no signs of trauma. EYES: Pupils equal, round and reactive to light, extraocular movements intact, sclera anicteric, conjunctiva clear. No lid lag. EARS, NOSE, THROAT: Oropharynx clear without exudates. mildly dry mucous membranes. NECK: Normal range of motion, supple without JVD, or masses. LUNGS: Breath sounds equal, generalized decrease in air entry consistent with underlying COPD but no wheezes, and no crackles. No accessory muscle use. HEART: Regular tachycardic ABDOMEN: Soft, nontender, obese, not distended, normoactive bowel sounds, no guarding, no rebound, no masses. MUSCULOSKELETAL: . No CVA tenderness. UPPER EXTREMITIES: oval longitudinal 5x2 cm swelling with induration/warmth/ tenderness and overlying erythema over lateral forearm just beflow left elbow, ROM exam at left elbow limited exam given restriction from swelling, 2+ pulses, warm, well-perfused. No cyanosis. No clubbing. No peripheral edema. LOWER EXTREMITIES: 2+ pulses, warm, well-perfused. No calf tenderness. No peripheral edema. NEUROLOGICAL: AAOx1, facial symmetry, tongue midline, moves all extremities symmetrically except at left elbow/forearm limited by pain and swelling, grossly nonfocal PSYCHIATRIC: Cooperative. Good eye contact. Appropriate mood and affect. SKIN: Warm, dry, mildly decreased turgor Home Medication List Medication Instructions Recorded Confirmed Type Aa/Hydrolyzed Collagen, Whey [Lps 30 ml PO DAILY 01/12/17 05/25/17 History 15-30 Liquid] Acetaminophen [Tylenol] 650 mg PO QID PRN 01/12/17 05/25/17 History Albuterol Sulfate [Proventil HFA 1 - 2 inh PO QID PRN 01/12/17 05/25/17 History Inhaler -] Alprazolam [Xanax] 0.25 mg PO TID 01/12/17 05/25/17 History Aspirin [Children's Aspirin] 81 mg PO DAILY 01/12/17 05/25/17 History Atorvastatin Ca [Lipitor] 10 mg PO HS 01/12/17 05/25/17 History Calcium Carbonate/Vitamin D3 1 each PO BID 01/12/17 05/25/17 History [Oyster Shell 500-Vit D3 200 Tb] Diltiazem Cd [Cardizem Cd -] 240 mg PO DAILY 01/12/17 05/25/17 History Docusate Sodium 200 mg PO DAILY 01/12/17 05/25/17 History Donepezil HCl [Aricept] 10 mg PO DAILY 01/12/17 05/25/17 History Escitalopram Oxalate [Lexapro -] 10 mg PO DAILY 01/12/17 05/25/17 History Gabapentin 300 mg PO BID 01/12/17 05/25/17 History Levothyroxine [Synthroid -] 75 mcg PO DAILY 01/12/17 05/25/17 History Loratadine [Allergy] 10 mg PO DAILY 01/12/17 05/25/17 History Memantine HCl [Namenda -] 10 mg PO BID 01/12/17 05/25/17 History Multivitamin with Iron [Daily Mabel 1 each PO DAILY 01/12/17 05/25/17 History with Iron] Mycophenolate Mofetil [Cellcept] 500 mg PO DAILY 01/12/17 05/25/17 History Olopatadine HCl [Pataday] 1 ml OU DAILY 01/12/17 05/25/17 History Oxybutynin Chloride [Oxybutynin 5 mg PO DAILY 01/12/17 05/25/17 History Chloride ER] Polyethylene Glycol 3350 [Miralax 17 gm PO DAILY 01/12/17 05/25/17 History 119 gm Btl -] Sennosides [Senna] 17.2 mg PO HS 01/12/17 05/25/17 History Tiotropium [place] [Spiriva] 18 mcg IH DAILY 03/16/17 05/25/17 History Active Medications Generic Name Dose Route Start Last Admin Trade Name Boomq PRN Reason Stop Dose Admin Sodium Chloride 1,000 mls @ 1,000 mls/hr 05/25/17 14:03 Normal Saline - IV 05/25/17 15:02 ASDIR STA Sodium Chloride 1,000 mls @ 125 mls/hr 05/25/17 15:03 Normal Saline - IV ASDIR [facility] Laboratory Results - last 24 hr 05/25/17 05/25/17 05/25/17 11:54 11:54 11:54 WBC 21.1 H D RBC 3.48 L Hgb 9.4 L D Hct 29.8 L D MCV 85.6 MCH 27.0 MCHC 31.5 L RDW 15.7 H Plt Count 317 MPV 8.2 Neutrophils % 76.1 Lymphocytes % 10.8 D Monocytes % 11.9 H Eosinophils % 0.2 Basophils % 1.0 PT with INR 14.20 H INR 1.26 H PTT (Actin FS) 27.7 VBG pH 7.37 POC VBG pCO2 60.9 H* POC VBG pO2 19.9 L* D Mixed VBG HCO3 34.6 H Sodium Potassium Chloride Carbon Dioxide Anion Gap BUN Creatinine Creat Clearance w eGFR Random Glucose Lactic Acid Calcium Total Bilirubin AST ALT Alkaline Phosphatase Creatine Kinase Troponin I Total Protein Albumin Blood Type Antibody Screen 05/25/17 05/25/17 05/25/17 11:54 11:54 11:54 WBC RBC Hgb Hct MCV MCH MCHC RDW Plt Count MPV Neutrophils % Lymphocytes % Monocytes % Eosinophils % Basophils % PT with INR INR PTT (Actin FS) VBG pH POC VBG pCO2 POC VBG pO2 Mixed VBG HCO3 Sodium 140 Potassium 3.7 Chloride 101 Carbon Dioxide 33 H Anion Gap 6 L BUN 16 Creatinine 0.9 Creat Clearance w eGFR 58.95 Random Glucose 97 D Lactic Acid 0.8 Calcium 8.8 Total Bilirubin 0.4 D AST 30 D ALT 22 Alkaline Phosphatase 54 Creatine Kinase 63 Troponin I < 0.02 Total Protein 6.4 Albumin 3.1 L Blood Type A NEGATIVE Antibody Screen Negative EKG sinus tach 100s, no acute St-T changes CXR - increased changes left pulmonary/pleural space, clips by aortic knob Left forearm/elbow xray - swelling around proximal ulna/elbow area ASSESSMENT AND PLAN: 87 yof with 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 Nugent), Recent admission to [facility] for fall/PNA when found with right superficial femoral vein DVT on xarelto, hypothyroidism admitted with sepsis, left forearm/ elbow swelling in the setting recent fall with LUE cut/trauma. 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 Blood cultures sent. Orthopedic consult to r/o septic arthritis, ID consult. Cannot r/u immature abscess, warm compresses to area, may need I&D +/- joint washout (pending ortho input). MRI left elbow/forearm. Check ESR/CRP. Hold cellcept, continue prednisone. Hold xarelto in case needs urgent intervention. Repeat Doppler LE. Hold anti-hypertensives. Continue levothyroxine. Code status: as discussed with daughter Kaycee at bedside, Daughter Chapis HCP. Full code for now, will address with her sister. DVTPPX, heparin if unable to resume xarelto in 24 hours. Fall/aspiration precautions. Check iron panel GIPPx withPPI Dispo pending resolution of medical issues. Prognosis guarded given sepsis, immunocompromised state. Needs close monitoring and aggressive treatment for sepsis. Plan discussed with patient and daughter Kaycee at bedside in detail, all questions answered. Total admit time spent 65 min.
[2017-05-25] MEDS ORDERED: ALBUTEROL SO4 18 GM HFA INHALER IH PRN (14:19)
[2017-05-25] MEDS ORDERED: ASPIRIN 81 MG CHEWABLE TABLETS PO SCH (14:30)
--- NOTE | 2017-05-25 14:38 | HP ---
CHIEF COMPLAINT: L elbow swelling, redness PCP: Dr Harding HISTORY OF PRESENT ILLNESS: Ms Carter is a 87yo F with an extensive PMhx including Alzheimers dementia, COPD on home O2 2L, and 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 She is poor historian and daughter is at bedside. Patient sustained witnessed mechanical fall 10 days , and sustained a mild open injury to L elbow. The pain's elbow pain had subsequently improved, however today the patient noted swelling and redness near the area. Pt also endorses had fevers, and changes in the patient's mental status such as decreased oral intake, decreased conversational speech. In the ER, the patient was noted to have a fever Tmax 101.1, tachycardic (100- 110s), with elevated WBC (21k, compared to baseline ~10). Since she is immunocompromised, concern arose for infection. She was started on Vancomycin and Zosyn. X-rays of the elbow were negative for fracture/bone destruction; Positive for left elbow, ulnar swelling. Orthopedic surgery was notified. Recent Travel: Denies PAST MEDICAL HISTORY: CAD, COPD/asthma on home O2 and prednisone, Alzheimer's dementia, HTN, HLD, GERD, hypothyroidism, Churgg Eugenie on mycophenalate, Anxiety, depression, and overactive bladder PAST SURGICAL HISTORY: L lung lobectomy Social History: Smoking: former smoker, smoked for 40 years, quit 45 years ago Alcohol: none Drugs: none Family History: No known Allergies levofloxacin [From Levaquin] Adverse Reaction (Unknown, Verified 04/12/17 05:53) Itching HOME MEDICATIONS: Home Medications Medication Instructions Recorded Aa/Hydrolyzed Collagen, Whey [Lps 30 ml PO DAILY 01/12/17 15-30 Liquid] Acetaminophen [Tylenol] 650 mg PO QID PRN 01/12/17 Albuterol Sulfate [Proventil HFA 1 - 2 inh PO QID PRN 01/12/17 Inhaler -] Alprazolam [Xanax] 0.25 mg PO TID 01/12/17 Aspirin [Children's Aspirin] 81 mg PO DAILY 01/12/17 Atorvastatin Ca [Lipitor] 10 mg PO HS 01/12/17 Calcium Carbonate/Vitamin D3 1 each PO BID@1200,2200 01/12/17 [Oyster Shell 500-Vit D3 200 Tb] Diltiazem Cd [Cardizem Cd -] 240 mg PO DAILY@1200 01/12/17 Docusate Sodium 200 mg PO DAILY@1200 01/12/17 Donepezil HCl [Aricept] 10 mg PO DAILY@1200 01/12/17 Escitalopram Oxalate [Lexapro -] 10 mg PO DAILY@1200 01/12/17 Gabapentin 300 mg PO BID@1200,2200 01/12/17 Levothyroxine [Synthroid -] 75 mcg PO DAILY@1200 01/12/17 Loratadine [Allergy] 10 mg PO DAILY 01/12/17 Memantine HCl [Namenda -] 10 mg PO BID 01/12/17 Multivitamin with Iron [Daily Mabel 1 each PO DAILY 01/12/17 with Iron] Mycophenolate Mofetil [Cellcept] 500 mg PO DAILY 01/12/17 Olopatadine HCl [Pataday] 1 ml OU DAILY 01/12/17 Oxybutynin Chloride [Oxybutynin 5 mg PO DAILY@119901/12/17 Chloride ER] Polyethylene Glycol 3350 [Miralax 17 gm PO DAILY@119901/12/17 119 gm Btl -] Sennosides [Senna] 17.2 mg PO HS 01/12/17 Budesonide/Formeterol Fumarate 2 puff IH BID #1 inhaler 01/17/17 [SYMBICORT 80/4.5mcg -] Tiotropium [place] [Spiriva] 18 mcg IH DAILY 03/16/17 Prednisone 15 mg PO DAILY #20 tablet 04/18/17 Rivaroxaban [Xarelto -] 20 mg PO DAILY #14 tablet 04/18/17 REVIEW OF SYSTEMS CONSTITUTIONAL: Absent: fever, chills, diaphoresis, generalized weakness, malaise, loss of appetite, weight change HEENT: Absent: rhinorrhea, nasal congestion, throat pain, throat swelling, difficulty swallowing, mouth swelling, ear pain, eye pain, visual changes CARDIOVASCULAR: Absent: chest pain, syncope, palpitations, irregular heart rate, lightheadedness , peripheral edema RESPIRATORY: Absent: cough, shortness of breath, dyspnea with exertion, orthopnea, wheezing, stridor, hemoptysis GASTROINTESTINAL: Absent: abdominal pain, abdominal distension, nausea, vomiting, diarrhea, constipation, melena, hematochezia GENITOURINARY: Absent: dysuria, frequency, urgency, hesitancy, hematuria, flank pain, genital pain MUSCULOSKELETAL: Absent: myalgia, arthralgia, joint swelling, back pain, neck pain SKIN: Absent: rash, itching, pallor HEMATOLOGIC/IMMUNOLOGIC: Absent: easy bleeding, easy bruising, lymphadenopathy, frequent infections ENDOCRINE: Absent: unexplained weight gain, unexplained weight loss, heat intolerance, cold intolerance NEUROLOGIC: Absent: headache, focal weakness or paresthesias, dizziness, unsteady gait, seizure, mental status changes, bladder or bowel incontinence PSYCHIATRIC: Absent: anxiety, depression, suicidal or homicidal ideation, hallucinations. PHYSICAL EXAMINATION Vital Signs - 24 hr 05/25/17 05/25/17 05/25/17 11:33 11:39 12:09 Temperature 100.0 F H 101.1 F H Pulse Rate 108 H Pulse Rate [ Left Radial] Respiratory 20 Rate Blood Pressure 116/70 Blood Pressure [Right Arm] O2 Sat by Pulse 99 99 Oximetry (%) GEN: Awake, alert, not oriented to place and month, but responds to questions HEENT: PERRLA, EOMi, no cervical LAD CV: S1, S2, 2/6 systolic murmur LUNG: Decreased air entry, no crackles ABD: Soft, NT, ND MSK: No edema, no erythema, 5/5 muscle strength throughout Warm, swollen, indurated area lateral to L elbow. Able to passively and actively lift L arm. 2+ pulses. Neurologically intact. no edema NEURO: Facial symmetry, MSK and sensation intact Laboratory Last Values WBC 21.1 K/mm3 (4.0-10.0) H D 05/25/17 11:54 RBC 3.48 M/mm3 (3.60-5.2) L 05/25/17 11:54 Hgb 9.4 GM/dL (10.7-15.3) L D 05/25/17 11:54 Hct 29.8 % (32.4-45.2) L D 05/25/17 11:54 MCV 85.6 fl (80-96) 05/25/17 11:54 MCH 27.0 pg (25.7-33.7) 05/25/17 11:54 MCHC 31.5 g/dl (32.0-36.0) L 05/25/17 11:54 RDW 15.7 % (11.6-15.6) H 05/25/17 11:54 Plt Count 317 K/MM3 (134-434) 05/25/17 11:54 MPV 8.2 fl (7.5-11.1) 05/25/17 11:54 Neutrophils % 76.1 % (42.8-82.8) 05/25/17 11:54 Lymphocytes % 10.8 % (8-40) D 05/25/17 11:54 Monocytes % 11.9 % (3.8-10.2) H 05/25/17 11:54 Eosinophils % 0.2 % (0-4.5) 05/25/17 11:54 Basophils % 1.0 % (0-2.0) 05/25/17 11:54 PT with INR 14.20 SEC (9.98-11.88) H 05/25/17 11:54 INR 1.26 (0.82-1.09) H 05/25/17 11:54 PTT (Actin FS) 27.7 SECONDS (26.9-34.4) 05/25/17 11:54 VBG pH 7.37 (7.32-7.42) 05/25/17 11:54 POC VBG pCO2 60.9 mmHg (38-52) H* 05/25/17 11:54 POC VBG pO2 19.9 mmHg (28-48) L* D 05/25/17 11:54 Mixed VBG HCO3 34.6 meq/L (19-25) H 05/25/17 11:54 Sodium 140 mmol/L (136-145) 05/25/17 11:54 Potassium 3.7 mmol/L (3.5-5.1) 05/25/17 11:54 Chloride 101 mmol/L (98-107) 05/25/17 11:54 Carbon Dioxide 33 mmol/L (21-32) H 05/25/17 11:54 Anion Gap 6 (8-16) L 05/25/17 11:54 BUN 16 mg/dL (7-18) 05/25/17 11:54 Creatinine 0.9 mg/dL (0.55-1.02) 05/25/17 11:54 Creat Clearance w eGFR 58.95 (>60) 05/25/17 11:54 Random Glucose 97 mg/dL (74-106) D 05/25/17 11:54 Lactic Acid 0.8 mmol/L (0.4-2.0) 05/25/17 11:54 Calcium 8.8 mg/dL (8.5-10.1) 05/25/17 11:54 Total Bilirubin 0.4 mg/dL (0.2-1.0) D 05/25/17 11:54 AST 30 U/L (15-37) D 05/25/17 11:54 ALT 22 U/L (12-78) 05/25/17 11:54 Alkaline Phosphatase 54 U/L (45-117) 05/25/17 11:54 Creatine Kinase 63 IU/L (26-192) 05/25/17 11:54 Troponin I < 0.02 ng/ml (0.00-0.05) 05/25/17 11:54 Total Protein 6.4 g/dl (6.4-8.2) 05/25/17 11:54 Albumin 3.1 g/dl (3.4-5.0) L 05/25/17 11:54 Blood Type A NEGATIVE 05/25/17 11:54 Antibody Screen Negative 05/25/17 11:54 Home Medication List Medication Instructions Recorded Confirmed Type Aa/Hydrolyzed Collagen, Whey [Lps 30 ml PO DAILY 01/12/17 05/25/17 History 15-30 Liquid] Acetaminophen [Tylenol] 650 mg PO QID PRN 01/12/17 05/25/17 History Albuterol Sulfate [Proventil HFA 1 - 2 inh PO QID PRN 01/12/17 05/25/17 History Inhaler -] Alprazolam [Xanax] 0.25 mg PO TID 01/12/17 05/25/17 History Aspirin [Children's Aspirin] 81 mg PO DAILY 01/12/17 05/25/17 History Atorvastatin Ca [Lipitor] 10 mg PO HS 01/12/17 05/25/17 History Calcium Carbonate/Vitamin D3 1 each PO BID@1200,2200 01/12/17 05/25/17 History [Oyster Shell 500-Vit D3 200 Tb] Diltiazem Cd [Cardizem Cd -] 240 mg PO DAILY@1200 01/12/17 05/25/17 History Docusate Sodium 200 mg PO DAILY@1200 01/12/17 05/25/17 History Donepezil HCl [Aricept] 10 mg PO DAILY@1200 01/12/17 05/25/17 History Escitalopram Oxalate [Lexapro -] 10 mg PO DAILY@1200 01/12/17 05/25/17 History Gabapentin 300 mg PO BID@1200,2200 01/12/17 05/25/17 History Levothyroxine [Synthroid -] 75 mcg PO DAILY@1200 01/12/17 05/25/17 History Loratadine [Allergy] 10 mg PO DAILY 01/12/17 05/25/17 History Memantine HCl [Namenda -] 10 mg PO BID 01/12/17 05/25/17 History Multivitamin with Iron [Daily Mabel 1 each PO DAILY 01/12/17 05/25/17 History with Iron] Mycophenolate Mofetil [Cellcept] 500 mg PO DAILY 01/12/17 05/25/17 History Olopatadine HCl [Pataday] 1 ml OU DAILY 01/12/17 05/25/17 History Oxybutynin Chloride [Oxybutynin 5 mg PO DAILY@119901/12/17 05/25/17 History Chloride ER] Polyethylene Glycol 3350 [Miralax 17 gm PO DAILY@1200 01/12/17 05/25/17 History 119 gm Btl -] Sennosides [Senna] 17.2 mg PO HS 01/12/17 05/25/17 History Tiotropium [place] [Spiriva] 18 mcg IH DAILY 03/16/17 05/25/17 History Active Medications Generic Name Dose Route Start Last Admin Trade Name Camila PRN Reason Stop Dose Admin Acetaminophen 650 mg 05/25/17 14:19 Tylenol - PO QID PRN PAIN Albuterol Sulfate 1 - 2 puff 05/25/17 14:19 Ventolin Hfa Inhaler - IH QID PRN SHORT OF BREATH/WHEEZING Alprazolam 0.25 mg 05/25/17 14:19 Xanax - PO Q8H PRN ANXIETY Aspirin 81 mg 05/25/17 14:30 05/25/17 16:19 Asa - PO 81 mg DAILY [facility] Administration Atorvastatin Calcium 10 mg 05/25/17 22:00 Lipitor - PO HS [facility] Budesonide/Formoterol Fumarate 2 puff 05/25/17 22:00 Symbicort 80/4.5mcg - IH BID [facility] Cefepime HCl 2 gm 05/25/17 16:45 Maxipime (Restricted To Id) - IVPB DAILY [facility] Protocol Docusate Sodium 200 mg 05/26/17 12:00 Colace - PO DAILY@1200 [facility] Donepezil HCl 10 mg 05/26/17 12:00 Aricept - PO DAILY@1200 [facility] Escitalopram Oxalate 10 mg 05/26/17 12:00 Lexapro - PO DAILY@1200 [facility] Gabapentin 300 mg 05/25/17 22:00 Neurontin - PO BID@1200,2200 [facility] Sodium Chloride 1,000 mls @ 100 mls/hr 05/25/17 15:03 Normal Saline - IV ASDIR [facility] Vancomycin HCl 1,000 mg/ 250 mls @ 250 mls/hr 05/25/17 20:00 Dextrose IVPB BID [facility] Protocol Levothyroxine Sodium 75 mcg 05/26/17 07:00 Synthroid - PO DAILY@0700 [facility] Loratadine 10 mg 05/26/17 12:00 Claritin - PO DAILY [facility] Memantine 10 mg 05/25/17 22:00 Namenda - PO BID [facility] Non-Formulary Medication 30 ml 05/26/17 10:00 Aa/Hydrolyzed Collagen, Whey [Lps 15-30 Liquid] PO DAILY [facility] Non-Formulary Medication 1 ml 05/26/17 10:00 Olopatadine Hcl [Pataday] OU DAILY [facility] Oxybutynin Chloride 5 mg 05/26/17 12:00 Ditropan - PO DAILY@1200 [facility] Polyethylene Glycol 17 gm 05/26/17 12:00 Miralax (For Daily Use) - PO DAILY@1200 [facility] Prednisone 15 mg 05/26/17 10:00 Deltasone - PO DAILY [facility] Senna 2 tab 05/25/17 22:00 Senna - PO HS [facility] Tiotropium [place] 1 puff 05/26/17 10:00 Spiriva - IH DAILY [facility] ASSESSMENT/PLAN: Pt is an 87yo F with PMHx of COPD on 2L home O2 and prednisone, Churg Eugenie on Cellcept, Alzheimers Dementia, NHL, R superficial femoral vein DVT on Xarelto , who presented with L forearm/elbow swelling in the setting of recent fall with LUE cut/trauma # Sepsis - Likely secondary to L olecranon bursitis with overlying cellulitis s/p mechanical fall. There is low suspicion for septic arthritis but since patient had traumatic point of entry and is immunocompromised, it is in consideration. Bcx are sent. Pending ESR/CRP - Discussed w/ Dr Whitten, will start pt on Vanc/Zosyn. Start IVF 1L bolus with IVF 125cc/hr. Will hold Cellcept. - Ortho consulted. MRI w/ contrast of LUE ordered. Xarelto held for possible intervention (last dose 05/24 12pm). # Churgg Eugenie - continue Prednisone, HOLD Cellcept for now in light of acute infection # Hx of Superficial Femoral DVT - Started on Xarelto last hospitalization, will hold for possible interention. Will get repeat U/S to see if pt still needs AC # Normocytic Anemia - No signs of bleeding, FOBT, Fe studies for tmrw # Hx of CAD - continue ASA # COPD/Asthma - continue Spiriva, symbicort, duonebs PRN # Alzheimer dementia - continue Donepezil # HTN - continue Cardizem # HLD - continue Lipitor # Hypothyroidism - continue Synthroid # Overactive Bladder - continue Oxybutynin # Anxiety/Depression - continue xanax and lexapro # GERD - zantac # Constipation - continue senna, colace, and miralax # FEN/PPx - Bolus IL and NS at 125cc/hr, low sodium diet, SCDs # Dispo - Admit to noncardiac tele. Await ortho reccs tmrw d/w Dr Son Hernadez MD - PGY1 Internal Medicine Visit type - Emergency Visit Emergency Visit: Yes ED Registration Date: 05/25/17 Care time: The patient presented to the Emergency Department on the above date and was hospitalized for further evaluation of their emergent condition. - New Patient This patient is new to me today: Yes Date on this admission: 05/25/17 - Critical Care Critical Care patient: No
[2017-05-25] MEDS ORDERED: SODIUM CHLORIDE 1,000 ML IV SCH (15:03)
[2017-05-25] MEDS ORDERED: ASPIRIN COATED 81 MG TABLET.EC ONE (16:11)
[2017-05-25] MEDS ORDERED: CEFEPIME HCL 2 GM VIAL (RESTRICTED TO ID) IVPB SCH ×3 (16:30→19:00)
--- NOTE | 2017-05-25 17:39 | EKG ---
Test Reason : Blood Pressure : / mmHG Vent. Rate : 103 BPM Atrial Rate : 103 BPM P-R Int : 164 ms QRS Dur : 094 ms QT Int : 328 ms P-R-T Axes : 052 042 018 degrees QTc Int : 429 ms SINUS TACHYCARDIA POSSIBLE LEFT ATRIAL ENLARGEMENT EARLY R WAVE PROGRESSION MINIMAL CRITERIA FOR LEFT VENTRICULAR HYPERTROPHY NONSPECIFIC ST AND T WAVE ABNORMALITY ABNORMAL ECG WHEN COMPARED WITH ECG OF 12-APR-2017 06:06, T WAVE AMPLITUDE HAS DECREASED IN LATERAL LEADS Confirmed by JESISCA WRAY MD ([id number]) on 05/25/2017 5:39:00 PM Referred By: Confirmed By:JESSICA WRAY MD
[2017-05-25] MEDS ORDERED: CEFEPIME 2 GM in DEXTROSE 5%-WATER - 100 ML IVPB SCH (19:00)
[2017-05-25] MEDS: SODIUM CHLORIDE 1,000 ML IV SCH (19:35)
[2017-05-25] MEDS ORDERED: VANCOMYCIN 1,000 MG in DEXTROSE 5%-WATER - 250 ML IVPB SCH (20:00)
[2017-05-25] MEDS: VANCOMYCIN 1,000 MG in DEXTROSE 5%-WATER - 250 ML IVPB SCH (21:00)
[2017-05-25] MEDS: SENNOSIDES 8.6MG TABLET (FP) PO SCH (21:01)
[2017-05-25] MEDS: GABAPENTIN 300 MG CAPSULE (FP) PO SCH (21:01)
[2017-05-25] MEDS: ACETAMINOPHEN 325 MG TABLET (FP) PO PRN (21:01)
[2017-05-25] MEDS: ATORVASTATIN CA 10 MG TABLET (FP) PO SCH (21:01)
[2017-05-25] MEDS: MEMANTINE HCL 10 MG TABLET (FP) PO SCH (21:01)
[2017-05-25] MEDS: ALPRAZolam 0.25 MG TABLET PO PRN (21:01)
[2017-05-25] MEDS: BUDESONIDE/FORMETEROL FUMARATE 80/4.5 mcg INHALER IH SCH (21:01)
[2017-05-25] MEDS ORDERED: PT OWN MED DRAWER 7, Y5N ONE (21:40)
[2017-05-25] MEDS: ENOXAPARIN NA (PORCINE) 60 MG/0.6 ML DISP.SYRIN SQ SCH (22:51)
[2017-05-26] MEDS: ACETAMINOPHEN 325 MG TABLET (FP) PO PRN ×2 (02:52→16:18)
[2017-05-26] MEDS: LEVOTHYROXINE NA 75 MCG TABLET (FP) PO SCH (06:04)
[2017-05-26 07:43] LABS: BASOPHIL 0.2 % (0-2.0); EOSINOPHIL 0.2 % (0-4.5); MCH 26.4 pg (25.7-33.7); MCHC 30.7 g/dl (32.0-36.0); MEAN PLT VOLUME 8.7 fl (7.5-11.1); NEUTROPHILS 81.5 % (42.8-82.8); PLATELET COUNT 301 K/MM3 (134-434); RDW 15.4 % (11.6-15.6); WHITE BLOOD COUNT 24.2 K/mm3 (4.0-10.0)
[2017-05-26 07:53] LABS: ALBUMIN 2.3 g/dl (3.4-5.0); ALK PHOS 43 U/L (45-117); ANION GAP 8 (8-16); BILIRUBIN,TOTAL 0.3 mg/dL (0.2-1.0); CALCIUM 7.5 mg/dL (8.5-10.1); CO2 29 mmol/L (21-32); CREATININE 0.9 mg/dL (0.55-1.02); GLUCOSE,RANDOM 95 mg/dL (74-106); MAGNESIUM 2.1 mg/dL (1.8-2.4); PHOSPHOROUS 2.9 mg/dL (2.5-4.9); SGOT/AST 12 U/L (15-37); SGPT/ALT 15 U/L (12-78)
[2017-05-26 08:01] LABS: INR 1.23 (0.82-1.09); PROTHROMBIN TIME (PATIENT) 13.9 SEC (9.98-11.88)
--- NOTE | 2017-05-26 08:46 | PN ---
Physical Exam: SUBJECTIVE: Patient seen and examined. More conversational today, near baseline. However pt was spiking temps and elevated WBC. She states elbow is improved. OBJECTIVE: Vital Signs Period Temp Pulse Resp BP Sys/Bahena Pulse Ox Last 24 Hr 98 F-1000 F 92-118 18-20 101-141/37-78 95-99 GEN: Awake, alert, not oriented to place and month, but responds to questions HEENT: PERRLA, EOMi, no cervical LAD CV: S1, S2, 2/6 systolic murmur LUNG: Decreased air entry, no crackles ABD: Soft, NT, ND MSK: Warm, swollen, indurated area lateral to L elbow. Increased since yesterday. Still able to passively and actively lift L arm. 2+ pulses. Neurologically intact. no edema NEURO: Facial symmetry, MSK and sensation intact Laboratory Last Values WBC 24.2 K/mm3 (4.0-10.0) H 05/26/17 06:00 RBC 3.34 M/mm3 (3.60-5.2) L 05/26/17 06:00 Hgb 8.8 GM/dL (10.7-15.3) L 05/26/17 06:00 Hct 28.7 % (32.4-45.2) L 05/26/17 06:00 MCV 86.0 fl (80-96) 05/26/17 06:00 MCH 26.4 pg (25.7-33.7) 05/26/17 06:00 MCHC 30.7 g/dl (32.0-36.0) L 05/26/17 06:00 RDW 15.4 % (11.6-15.6) 05/26/17 06:00 Plt Count 301 K/MM3 (134-434) 05/26/17 06:00 MPV 8.7 fl (7.5-11.1) 05/26/17 06:00 Neutrophils % 81.5 % (42.8-82.8) 05/26/17 06:00 Lymphocytes % 7.7 % (8-40) L D 05/26/17 06:00 Monocytes % 10.4 % (3.8-10.2) H 05/26/17 06:00 Eosinophils % 0.2 % (0-4.5) 05/26/17 06:00 Basophils % 0.2 % (0-2.0) 05/26/17 06:00 PT with INR 13.90 SEC (9.98-11.88) H 05/26/17 06:00 INR 1.23 (0.82-1.09) H 05/26/17 06:00 PTT (Actin FS) 27.7 SECONDS (26.9-34.4) 05/25/17 11:54 VBG pH 7.37 (7.32-7.42) 05/25/17 11:54 POC VBG pCO2 60.9 mmHg (38-52) H* 05/25/17 11:54 POC VBG pO2 19.9 mmHg (28-48) L* D 05/25/17 11:54 Mixed VBG HCO3 34.6 meq/L (19-25) H 05/25/17 11:54 Sodium 143 mmol/L (136-145) 05/26/17 06:00 Potassium 3.1 mmol/L (3.5-5.1) L 05/26/17 06:00 Chloride 106 mmol/L (98-107) 05/26/17 06:00 Carbon Dioxide 29 mmol/L (21-32) 05/26/17 06:00 Anion Gap 8 (8-16) 05/26/17 06:00 BUN 15 mg/dL (7-18) 05/26/17 06:00 Creatinine 0.9 mg/dL (0.55-1.02) 05/26/17 06:00 Creat Clearance w eGFR 58.95 (>60) 05/26/17 06:00 Random Glucose 95 mg/dL (74-106) 05/26/17 06:00 Lactic Acid 0.8 mmol/L (0.4-2.0) 05/25/17 11:54 Calcium 7.5 mg/dL (8.5-10.1) L 05/26/17 06:00 Phosphorus 2.9 mg/dL (2.5-4.9) D 05/26/17 06:00 Magnesium 2.1 mg/dL (1.8-2.4) 05/26/17 06:00 Ferritin 34.807 ng/ml (6.9-282.5) 05/26/17 06:00 Total Bilirubin 0.3 mg/dL (0.2-1.0) D 05/26/17 06:00 AST 12 U/L (15-37) L D 05/26/17 06:00 ALT 15 U/L (12-78) D 05/26/17 06:00 Alkaline Phosphatase 43 U/L (45-117) L D 05/26/17 06:00 Creatine Kinase 63 IU/L (26-192) 05/25/17 11:54 Troponin I < 0.02 ng/ml (0.00-0.05) 05/25/17 11:54 C-Reactive Protein Cancelled 05/26/17 06:00 Total Protein 5.0 g/dl (6.4-8.2) L D 05/26/17 06:00 Albumin 2.3 g/dl (3.4-5.0) L D 05/26/17 06:00 Blood Type A NEGATIVE 05/25/17 11:54 Antibody Screen Negative 05/25/17 11:54 Active Medications Generic Name Dose Route Start Last Admin Trade Name Freq PRN Reason Stop Dose Admin Acetaminophen 650 mg 05/25/17 14:19 05/26/17 02:52 Tylenol - PO 650 mg QID PRN Administration PAIN Albuterol Sulfate 1 - 2 puff 05/25/17 14:19 Ventolin Hfa Inhaler - IH QID PRN SHORT OF BREATH/WHEEZING Alprazolam 0.25 mg 05/25/17 14:19 05/25/17 21:01 Xanax - PO 0.25 mg Q8H PRN Administration ANXIETY Atorvastatin Calcium 10 mg 05/25/17 22:00 05/25/17 21:01 Lipitor - PO 10 mg HS BEVERLY Administration Budesonide/Formoterol Fumarate 2 puff 05/25/17 22:00 05/25/17 21:01 Symbicort 80/4.5mcg - IH 2 puff BID BEVERLY Administration Diltiazem HCl 240 mg 05/26/17 02:42 Cardizem Cd - PO DAILY@1200 [facility] Docusate Sodium 200 mg 05/26/17 12:00 Colace - PO DAILY@1200 BEVERLY Donepezil HCl 10 mg 05/26/17 12:00 Aricept - PO DAILY@1200 [facility] Enoxaparin Sodium 68 mg 05/25/17 21:45 05/25/17 22:51 Lovenox - SQ 68 mg BID BEVERLY Administration Escitalopram Oxalate 10 mg 05/26/17 12:00 Lexapro - PO DAILY@1200 [facility] Gabapentin 300 mg 05/25/17 22:00 05/25/17 21:01 Neurontin - PO 300 mg BID@1200,2200 BEVERLY Administration Sodium Chloride 1,000 mls @ 100 mls/hr 05/25/17 15:03 05/25/17 19:35 Normal Saline - IV 100 mls/hr ASDIR BEVERLY Administration Vancomycin HCl 1,000 mg/ 250 mls @ 166.667 mls/hr 05/25/17 22:00 05/25/17 21: 00 Dextrose IVPB 166.667 mls/hr BID BEVERLY Administration Protocol Cefepime HCl 2 gm/ Dextrose 100 mls @ 200 mls/hr 05/25/17 19:00 05/25/17 19: 36 IVPB 200 mls/hr DAILY BEVERLY Administration Levothyroxine Sodium 75 mcg 05/26/17 07:00 05/26/17 06:04 Synthroid - PO 75 mcg DAILY@0700 B[place] Administration Loratadine 10 mg 05/26/17 12:00 Claritin - PO DAILY [facility] Memantine 10 mg 05/25/17 22:00 05/25/17 21:01 Namenda - PO 10 mg BID BEVER[place] Administration Non-Formulary Medication 1 ml 05/26/17 10:00 Olopatadine Hcl [Pataday] OU DAILY [facility] Oxybutynin Chloride 5 mg 05/26/17 12:00 Ditropan - PO DAILY@1200 [facility] Polyethylene Glycol 17 gm 05/26/17 12:00 Miralax (For Daily Use) - PO DAILY@1200 [facility] Potassium Chloride 40 meq 05/26/17 08:41 K-Dur - PO 05/26/17 08:42 ONCE ONE Prednisone 15 mg 05/26/17 10:00 Deltasone - PO DAILY [facility] Senna 2 tab 05/25/17 22:00 05/25/17 21:01 Senna - PO 2 tab HS B[place] Administration Tiotropium [place] 1 puff 05/26/17 10:00 Spiriva - IH DAILY [facility] ASSESSMENT/PLAN: Pt is an 87yo F with PMHx of COPD on 2L home O2 and prednisone, Churg Eugenie on Cellcept, Alzheimers Dementia, NHL, R superficial femoral vein DVT on Xarelto , who presented with L forearm/elbow swelling in the setting of recent fall with LUE cut/trauma # Sepsis - Likely secondary to L olecranon bursitis with overlying cellulitis s/p mechanical fall. Orthopedic surgery Dr Real saw patient and aspirated 10cc of pus from olecranon site, consistent with infected bursa. After discussion w/ Dr Real, he states that if patient does not improve, he will consider doing a larger I&D at bedside. Will continue to hold Xarelto for now. - Continue Vanc + now started on Meropenem + IVF 125cc/hr. Continue to hold cellcept. MRI of LUE pending. LUE pending to r/o DVT # Hx of Superficial Femoral VT - Repeat U/s still shows superficial thrombosis, patient needs to be continued on Xarelto as an outpatient, but hold Xarelto pending procedure tmrw by Ortho. # Churgg Eugenie - continue Prednisone, HOLD Cellcept for now in light of acute infection # Normocytic Anemia - No signs of bleeding, FOBT, Fe studies for tmrw, low normal ferritin # Hx of CAD - continue ASA # COPD/Asthma - continue Spiriva, symbicort, duonebs PRN # Alzheimer dementia - continue Donepezil # HTN - continue Cardizem # HLD - continue Lipitor # Hypothyroidism - continue Synthroid # Overactive Bladder - continue Oxybutynin # Anxiety/Depression - continue xanax and lexapro # GERD - zantac # Constipation - continue senna, colace, and miralax # FEN/PPx - Bolus IL and NS at 125cc/hr, low sodium diet, SCDs # Dispo - Await ortho reccs, await imaging, pt looks better however WBC is increasing and spiking fevers. d/w Dr Sno Hernadez MD - PGY1 Internal Medicine Visit type - Emergency Visit Emergency Visit: No - New Patient This patient is new to me today: No - Critical Care Critical Care patient: No - Discharge Referral Referred to [facility] Med [facility].C.: No
[2017-05-26 08:59] LABS: C-REACTIVE PROTEIN 17.9 MG/DL (0.00-0.3)
[2017-05-26] MEDS ORDERED: POTASSIUM CHLORIDE TABS 20 MEQ TABLET.ER (FP) PO ONE ×3 (09:00→15:30)
--- NOTE | 2017-05-26 09:12 | PN ---
Progress Note (short form) - Note Progress Note: ID consult dictated imp/reccd soft tissue infection LUE- ?olecronon bursitis-?skin ginger from prior cut fever/left elbow swelling in this 87 year old immunocompromised host (cellcept/ prednisone)-admitted yesterday has some ROM of the elbow but arm remains red and swollen diffusely on vanco/cefepime scheduled for MRI would get LUE duplex as well continue vancomycin, would switch to meropenem history of Ecoli ESBL contact isolation ortho evaluation f/u cultures vanco trough before fourth dose Problem List - Problems (1) Cellulitis of upper extremity Code(s): L03.119 - CELLULITIS OF UNSPECIFIED PART OF LIMB (2) Immunocompromised state Code(s): D84.9 - IMMUNODEFICIENCY, UNSPECIFIED (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
[2017-05-26] MEDS: MEROPENEM 1 GM PUSH 1 GM/20 ML DISP.SYRIN IVPUSH SCH ×3 (09:50→20:38)
[2017-05-26] MEDS ORDERED: RIVAROXABAN 20 MG TABLET PO SCH (10:00)
[2017-05-26] MEDS ORDERED: PATIENT'S OWN MEDICATION (NON-FORMULARY) (Aa/Hydrolyzed Collagen, Whey [Lps 15-30 Liquid] PO SCH (10:00)
--- NOTE | 2017-05-26 10:27 | CONS ---
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 HISTORY OF PRESENT ILLNESS: This is an 87-year-old female who was admitted from her assisted living facility. She has a past medical history notable for Churg-Eugenie, is on Mycophenolate and prednisone. She lives in an assisted living facility. She sustained a fall 10 days ago and sustained injury to her left elbow. It improved and yesterday she developed sudden onset of swelling, erythema of her left elbow that spread to her left arm. She had fever and she became somewhat less responsive. She was brought to the emergency room. She was given vancomycin and Zosyn in the ER. She had a white count of 21,000. She had a fever of 101.1. X-ray was negative for fracture, but notable for swelling at the site. She was admitted for further evaluation. PAST MEDICAL HISTORY: Her past medical history is notable for coronary artery disease. She has a history of COPD and is on home oxygen. She has a history of dementia, hypertension, hyperlipidemia, GERD, hypothyroidism, Churg-Eugenie, anxiety, depression and overactive bladder. She has had multiple admissions to [facility] in the past and has had E. coli ESBL in her urine. She has a history of non-Hodgkin lymphoma as well. PAST SURGICAL HISTORY: Surgical history is notable for lobectomy. She has had multiple episodes of pneumonia in the past. ALLERGIES: SHE HAS A HISTORY OF A QUINOLONE ALLERGY. THE NATURE OF THE ALLERGY IS NOT KNOWN. SOCIAL HISTORY: She resides at an assisted living facility. REVIEW OF SYSTEMS: She denies any cough or shortness of breath. She notes pain in her arm. She is able to follow commands. She denies diarrhea or vomiting. She denies any dysuria as well. PHYSICAL EXAMINATION: Vitals: Her current temperature is 99. T max was 102.8. Blood pressure is 101/37, pulse of 109, respiratory rate is 20. She is saturating 95% on 2 L. HEENT: She is normocephalic. Her eyes are anicteric. Neck: Her neck is supple. She has no meningeal sign. She has no thrush. Lungs: Her lungs have scattered crackles at the bases. Heart: Her heart is regular rate and rhythm. Abdomen: Soft, nontender. Extremities: She has no edema of her legs. Her left arm is diffusely erythematous. She has some independent range of motion of the elbow. She is able to, not completely, but she is able to flex her forearm. She has diffuse erythema extending above the hand to below the shoulder on the left side. She does not have any palpable adenopathy. Her pulses are intact and she has sensation. Her white count is 24,000 this, yesterday was 21. Hemoglobin 8.8, platelets are 301. INR is 1.2. BUN 15, creatinine 0.9. Her CRP is 17. Urinalysis was not sent and blood cultures are pending. The x-ray of her arm showed soft tissue swelling, no fracture and chest x-ray reveals prior lung surgery. In summary, this is an 87-year-old woman with a soft tissue infection of the left upper extremity, possible olecranon bursitis. Concerns would include skin ginger as she appears to have had an open cut in that area. In this situation, would cover for MRSA with vancomycin, as well as meropenem given the prior ESBL organism. She is scheduled for MRI today. I would get a duple of the arm as well. I would continue vancomycin. Switch to meropenem. Contact isolation for ESBL organisms. Orthopedic evaluation is pending. Follow up her cultures and obtain a vancomycin trough . Further recommendations to follow based on her clinical course. SULEMA ROE M.D. 1 PATSY/[id number]
[2017-05-26] MEDS: predniSONE 5 MG TABLET (UD) PO SCH (11:03)
[2017-05-26] MEDS: ESCITALOPRAM OXALATE 10 MG TABLET (FP) PO SCH (11:03)
[2017-05-26] MEDS: DOCUSATE SODIUM 100 MG CAPSULE (FP) PO SCH (11:03)
[2017-05-26] MEDS: MEMANTINE HCL 10 MG TABLET (FP) PO SCH ×2 (11:04→22:31)
[2017-05-26] MEDS: VANCOMYCIN 1,000 MG in DEXTROSE 5%-WATER - 250 ML IVPB SCH ×2 (11:04→22:32)
[2017-05-26] MEDS: DONEPEZIL HCL 10 MG TABLET (FP) PO SCH (11:04)
[2017-05-26] MEDS: ENOXAPARIN NA (PORCINE) 60 MG/0.6 ML DISP.SYRIN SQ SCH (11:05)
--- NOTE | 2017-05-26 11:13 | CON.PULM ---
Consult Consult Specialty:: PULMONARY Referred by:: MARJORIE Reason for Consultation:: COPD - History of Present Illness Chief Complaint: LEFT UPPER EXT PAIN History of Present Illness: 86 yr old female, with significant past medical history of CAD (on aspirin) , COPD/asthma on 2L O2 dependent, Alzheimers, dementia,vasculitis, lymphoma, lung CA, HTN, HLD, GERD, hypothyroidism, and an overactive bladder, who was BIBA from [facility] after staff noted left upper ext edema,erythema and discomfort. She is well known by our service from multiple inpatient and outpatient admissions. She is an unreliable historian due to underlying dementia. 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 Cardio/Vascular: Yes: Pulmonary Hypertension, HTN, Hyperlipdemia Pulmonary: Yes: COPD, O2 Dependent, Other (thoracotomy due to mass) Psych: Yes: Anxiety, Panic Musculoskeletal: Yes: Other (h/o of foot drop) Rheumatology: Yes: Vasculitis - Past Surgical History Past Surgical History: Yes: Thoracotomy - Alcohol/Substance Use Hx Alcohol Use: No - Smoking History Smoking history: Former smoker Have you smoked in the past 12 months: No Aproximately how many cigarettes per day: 0 If you are a former smoker, when did you quit?: 45 years ago - Social History Usual Living Arrangement: Assisted Living ADL: Support Services History of Recent Travel: No Home Medications - Allergies Allergies/Adverse Reactions: Allergies Allergy/AdvReac Type Severity Reaction Status Date / Time levofloxacin [From Levaquin] AdvReac Unknown Itching Verified 04/12/17 05:53 - Home Medications Home Medications: Ambulatory Orders Aa/Hydrolyzed Collagen, Whey [Lps 15-30 Liquid] 30 ml PO DAILY 01/12/17 Acetaminophen [Tylenol] 650 mg PO QID PRN 01/12/17 Albuterol Sulfate [Proventil HFA Inhaler -] 1 - 2 inh PO QID PRN 01/12/17 Alprazolam [Xanax] 0.25 mg PO TID 01/12/17 Aspirin [Children's Aspirin] 81 mg PO DAILY 01/12/17 Atorvastatin Ca [Lipitor] 10 mg PO HS 01/12/17 Calcium Carbonate/Vitamin D3 [Oyster Shell 500-Vit D3 200 Tb] 1 each PO BID@1200 ,2200 01/12/17 Diltiazem Cd [Cardizem Cd -] 240 mg PO DAILY@1200 01/12/17 Docusate Sodium 200 mg PO DAILY@119901/12/17 Donepezil HCl [Aricept] 10 mg PO DAILY@119901/12/17 Escitalopram Oxalate [Lexapro -] 10 mg PO DAILY@1200 01/12/17 Gabapentin 300 mg PO BID@1200,2200 01/12/17 Levothyroxine [Synthroid -] 75 mcg PO DAILY@119901/12/17 Loratadine [Allergy] 10 mg PO DAILY 01/12/17 Memantine HCl [Namenda -] 10 mg PO BID 01/12/17 Multivitamin with Iron [Daily Mabel with Iron] 1 each PO DAILY 01/12/17 Mycophenolate Mofetil [Cellcept] 500 mg PO DAILY 01/12/17 Olopatadine HCl [Pataday] 1 ml OU DAILY 01/12/17 Oxybutynin Chloride [Oxybutynin Chloride ER] 5 mg PO DAILY@119901/12/17 Polyethylene Glycol 3350 [Miralax 119 gm Btl -] 17 gm PO DAILY@119901/12/17 Sennosides [Senna] 17.2 mg PO HS 01/12/17 Budesonide/Formeterol Fumarate [SYMBICORT 80/4.5mcg -] 2 puff IH BID #1 inhaler 01/17/17 Tiotropium [place] [Spiriva] 18 mcg IH DAILY 03/16/17 Prednisone 15 mg PO DAILY #20 tablet 04/18/17 Rivaroxaban [Xarelto -] 20 mg PO DAILY #14 tablet 04/18/17 Family Disease History - Family Disease History Family Disease History: Heart Disease: Father, Sister Review of Systems Unable to obtain ROS, reason: unable to obtain Physical Exam Vital Sings: Vital Signs Temperature 99.0 F 05/26/17 06:00 Pulse Rate 109 H 05/26/17 06:00 Respiratory Rate 20 05/26/17 06:00 Blood Pressure 101/37 05/26/17 06:00 O2 Sat by Pulse Oximetry (%) 95 05/25/17 21:00 Constitutional: Yes: Calm Eyes: Yes: EOM Intact HENT: Yes: Normocephalic Neck: Yes: Trachea Midline Cardiovascular: Yes: S1, S2 Respiratory: Yes: CTA Bilaterally Gastrointestinal: Yes: Normal Bowel Sounds, Soft Renal/: Yes: WNL Breast(s): Yes: Other (deferred) Musculoskeletal: Yes: WNL Extremities: Yes: Erythema, Other (edema left upper ext) Neurological: Yes: Other (dementia) ...Motor Strength: WNL Labs: CBC, BMP 05/26/17 06:00 05/26/17 06:00 rest reviewed Imaging - Results Chest X-ray: Report Reviewed, Image Reviewed Problem List - Problems (1) COPD (chronic obstructive pulmonary disease) Code(s): J44.9 - CHRONIC OBSTRUCTIVE PULMONARY DISEASE, UNSPECIFIED (2) Anemia Code(s): D64.9 - ANEMIA, UNSPECIFIED (3) Cellulitis of left elbow Code(s): L03.114 - CELLULITIS OF LEFT UPPER LIMB (4) Cellulitis of upper extremity Code(s): L03.119 - CELLULITIS OF UNSPECIFIED PART OF LIMB Assessment/Plan PANCULTURE/ANTIBIOTICS PER ID (CRP 17.9) CONTINUE HOME MEDS/O2 NEEDED/BRONCHODILATORS DT PROPHYLAXSIS David FITZPATRICK MD
[2017-05-26] MEDS ORDERED: PT OWN MED DRAWER 7, Y5N ONE ×5 (13:14→22:43)
[2017-05-26] MEDS: POLYETHYLENE GLYCOL 3350 119 GM BTL PO SCH (13:21)
[2017-05-26] MEDS: TIOTROPIUM BROMIDE 18 MCG/INH (DEVICE W/ 5 CAPSULES) IH SCH (13:21)
[2017-05-26] MEDS: BUDESONIDE/FORMETEROL FUMARATE 80/4.5 mcg INHALER IH SCH ×2 (13:21→22:31)
[2017-05-26] MEDS: LORATADINE 10 MG TABLET PO SCH (13:22)
[2017-05-26] MEDS: OXYBUTYNIN CHLORIDE 5 MG TABLET PO SCH (13:22)
[2017-05-26] MEDS: GABAPENTIN 300 MG CAPSULE (FP) PO SCH ×2 (13:22→22:31)
[2017-05-26 14:08] LABS: URINE APPEARANCE SLCLOUDY; URINE BILIRUBIN NEGATIVE (NEGATIVE); URINE BLOOD NEGATIVE (NEGATIVE); URINE COLOR DKYELLOW; URINE GLUCOSE (UA) NEGATIVE (NEGATIVE); URINE KETONE NEGATIVE (NEGATIVE); URINE NITRITE NEGATIVE (NEGATIVE); URINE UROBILINOGEN NEGATIVE mg/dL (0.2-1.0)
--- NOTE | 2017-05-26 14:14 | CON.ORTH ---
Consult Consult Specialty:: ortho Reason for Consultation:: elbow - History of Present Illness Chief Complaint: left elbow History of Present Illness: 87 yo female fell olast week. admittd to yesterday for left elbow pain and swelling. Placed on IV abx with improved cellulitis but cont fever and wbc and elbow pain. no other co. . 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 Cardio/Vascular: Yes: HTN, Hyperlipdemia, Pulmonary Hypertension Pulmonary: Yes: COPD, O2 Dependent, Other (thoracotomy due to mass) Psych: Yes: Anxiety, Panic Musculoskeletal: Yes: Other (h/o of foot drop) Rheumatology: Yes: Vasculitis - Past Surgical History Past Surgical History: Yes: Thoracotomy - Alcohol/Substance Use Hx Alcohol Use: No - Smoking History Smoking history: Former smoker Have you smoked in the past 12 months: No Aproximately how many cigarettes per day: 0 If you are a former smoker, when did you quit?: 45 years ago - Social History Usual Living Arrangement: Assisted Living ADL: Support Services History of Recent Travel: No Home Medications - Allergies Allergies/Adverse Reactions: Allergies Allergy/AdvReac Type Severity Reaction Status Date / Time levofloxacin [From Levaquin] AdvReac Unknown Itching Verified 04/12/17 05:53 - Home Medications Home Medications: Ambulatory Orders Aa/Hydrolyzed Collagen, Whey [Lps 15-30 Liquid] 30 ml PO DAILY 01/12/17 Acetaminophen [Tylenol] 650 mg PO QID PRN 01/12/17 Albuterol Sulfate [Proventil HFA Inhaler -] 1 - 2 inh PO QID PRN 01/12/17 Alprazolam [Xanax] 0.25 mg PO TID 01/12/17 Aspirin [Children's Aspirin] 81 mg PO DAILY 01/12/17 Atorvastatin Ca [Lipitor] 10 mg PO HS 01/12/17 Calcium Carbonate/Vitamin D3 [Oyster Shell 500-Vit D3 200 Tb] 1 each PO BID@1200 ,2200 01/12/17 Diltiazem Cd [Cardizem Cd -] 240 mg PO DAILY@1200 01/12/17 Docusate Sodium 200 mg PO DAILY@1200 01/12/17 Donepezil HCl [Aricept] 10 mg PO DAILY@1200 01/12/17 Escitalopram Oxalate [Lexapro -] 10 mg PO DAILY@1200 01/12/17 Gabapentin 300 mg PO BID@1200,2200 01/12/17 Levothyroxine [Synthroid -] 75 mcg PO DAILY@1200 01/12/17 Loratadine [Allergy] 10 mg PO DAILY 01/12/17 Memantine HCl [Namenda -] 10 mg PO BID 01/12/17 Multivitamin with Iron [Daily Mabel with Iron] 1 each PO DAILY 01/12/17 Mycophenolate Mofetil [Cellcept] 500 mg PO DAILY 01/12/17 Olopatadine HCl [Pataday] 1 ml OU DAILY 01/12/17 Oxybutynin Chloride [Oxybutynin Chloride ER] 5 mg PO DAILY@1200 01/12/17 Polyethylene Glycol 3350 [Miralax 119 gm Btl -] 17 gm PO DAILY@1200 01/12/17 Sennosides [Senna] 17.2 mg PO HS 01/12/17 Budesonide/Formeterol Fumarate [SYMBICORT 80/4.5mcg -] 2 puff IH BID #1 inhaler 01/17/17 Tiotropium [place] [Spiriva] 18 mcg IH DAILY 03/16/17 Prednisone 15 mg PO DAILY #20 tablet 04/18/17 Rivaroxaban [Xarelto -] 20 mg PO DAILY #14 tablet 04/18/17 Family Disease History - Family Disease History Family Disease History: Heart Disease: Father, Sister Physical Exam for Ortho Vital Signs: Vital Signs Temperature 100.1 F H 05/26/17 10:00 Pulse Rate 110 H 05/26/17 10:00 Respiratory Rate 20 05/26/17 10:00 Blood Pressure 143/68 05/26/17 10:00 O2 Sat by Pulse Oximetry (%) 94 L 05/26/17 10:00 Constitutional: Yes: Well Nourished, No Distress Neck: Yes: WNL Respiratory: Yes: WNL Labs: CBC, BMP 05/26/17 06:00 05/26/17 06:00 INR, PTT INR 1.23 (0.82-1.09) H 05/26/17 06:00 Other Findings/Remarks: LEFT UPPER EXTREMITY: MILD DIFFUSE EDEMA. POSITIVE OLECRANON BURSITIS. MILD WARM HERE. VERY MILD ERYTHEMA. PER PRIMARY ERYTHEMA BETTER. TENDER OLECRANON BURSA. NO EVID OF JOINT EFFUSION. NEAR FROM. NVI Problem List - Problems (1) Bursitis due to bacterial infection Assessment/Plan: IMP: OLECRANON BURSITIS (WITH CELLULITIS OR ABCESS) PLAN: DW PT DX AND TX OPTIONS. ADVISED ASPIRATION AND CULTURE TO RO INFECTED BURSA. SHE DESIRED TO PROCEED. CONT IV ABX AND ELEVATION. PROCEDURE: ASPIRATION LEFT OLECRANON BURSA; AFTER DW PT RBA LEFT ELBOW STERILE PREP AND DRAPE. ASPIRATED 10CC PURULENT THICK FLUID CW PUS. SENT FOR CULTURES. WILL FOLLOW. Code(s): M71.10 - OTHER INFECTIVE BURSITIS, UNSPECIFIED SITE; B96.89 - OTH BACTERIAL AGENTS THE CAUSE OF DISEASES CLASSD [id number]
[2017-05-26 14:22] LABS: URINE PROTEIN 1+ (NEGATIVE)
[2017-05-26 14:29] LABS: URINE MUCUS MODERATE; URINE RBC 2 /hpf (0-3); URINE WBC 17 /hpf (3-5)
[2017-05-26] MEDS: SODIUM CHLORIDE 1,000 ML IV SCH ×2 (16:01→20:39)
--- NOTE | 2017-05-26 16:18 | PN ---
Teaching Attending Note Name of Resident: Harini Hernadez ATTENDING PHYSICIAN STATEMENT Time of evaluation: 10:10 AM I saw and evaluated the patient. I reviewed the resident's note and discussed the case with the resident. I agree with the resident's findings and plan as documented. SUBJECTIVE: Patient seen and examined. left forearm and elbow pain persistent. Otherwise no new complaints. OBJECTIVE: Vital Signs Period Temp Pulse Resp BP Sys/Bahena Pulse Ox Last 24 Hr 98 F-1000 F 109-118 18-20 101-143/37-71 94-98 Intake & Output 05/23/17 05/24/17 05/25/17 05/26/17 23:59 23:59 23:59 23:59 Intake Total 600 700 Balance 600 700 Weight 152 lb General: sitting in bed, less active than yesterday CVS: S1S2 regular Extremities: extended swelling with some improvement in overlying erythema, tenderness over olecranon region, overall worse exam than yesterday, fluctuation below left elbow on upper lateral forearm, positive pulses Chest: No rales or wheezing Home Medication List Medication Instructions Recorded Confirmed Type Aa/Hydrolyzed Collagen, Whey [Lps 30 ml PO DAILY 01/12/17 05/25/17 History 15-30 Liquid] Acetaminophen [Tylenol] 650 mg PO QID PRN 01/12/17 05/25/17 History Albuterol Sulfate [Proventil HFA 1 - 2 inh PO QID PRN 01/12/17 05/25/17 History Inhaler -] Alprazolam [Xanax] 0.25 mg PO TID 01/12/17 05/25/17 History Aspirin [Children's Aspirin] 81 mg PO DAILY 01/12/17 05/25/17 History Atorvastatin Ca [Lipitor] 10 mg PO HS 01/12/17 05/25/17 History Calcium Carbonate/Vitamin D3 1 each PO BID@1200,2200 01/12/17 05/25/17 History [Oyster Shell 500-Vit D3 200 Tb] Diltiazem Cd [Cardizem Cd -] 240 mg PO DAILY@1200 01/12/17 05/25/17 History Docusate Sodium 200 mg PO DAILY@1200 01/12/17 05/25/17 History Donepezil HCl [Aricept] 10 mg PO DAILY@1200 01/12/17 05/25/17 History Escitalopram Oxalate [Lexapro -] 10 mg PO DAILY@1200 01/12/17 05/25/17 History Gabapentin 300 mg PO BID@1200,2200 01/12/17 05/25/17 History Levothyroxine [Synthroid -] 75 mcg PO DAILY@1200 01/12/17 05/25/17 History Loratadine [Allergy] 10 mg PO DAILY 01/12/17 05/25/17 History Memantine HCl [Namenda -] 10 mg PO BID 01/12/17 05/25/17 History Multivitamin with Iron [Daily Mabel 1 each PO DAILY 01/12/17 05/25/17 History with Iron] Mycophenolate Mofetil [Cellcept] 500 mg PO DAILY 01/12/17 05/25/17 History Olopatadine HCl [Pataday] 1 ml OU DAILY 01/12/17 05/25/17 History Oxybutynin Chloride [Oxybutynin 5 mg PO DAILY@1200 01/12/17 05/25/17 History Chloride ER] Polyethylene Glycol 3350 [Miralax 17 gm PO DAILY@1200 01/12/17 05/25/17 History 119 gm Btl -] Sennosides [Senna] 17.2 mg PO HS 01/12/17 05/25/17 History Tiotropium [place] [Spiriva] 18 mcg IH DAILY 03/16/17 05/25/17 History Active Medications Generic Name Dose Route Start Last Admin Trade Name Freq PRN Reason Stop Dose Admin Acetaminophen 650 mg 05/25/17 14:19 05/26/17 16:18 Tylenol - PO 650 mg QID PRN Administration PAIN Albuterol Sulfate 1 - 2 puff 05/25/17 14:19 Ventolin Hfa Inhaler - IH QID PRN SHORT OF BREATH/WHEEZING Alprazolam 0.25 mg 05/25/17 14:19 05/25/17 21:01 Xanax - PO 0.25 mg Q8H PRN Administration ANXIETY Atorvastatin Calcium 10 mg 05/25/17 22:00 05/25/17 21:01 Lipitor - PO 10 mg HS B[place] Administration Budesonide/Formoterol Fumarate 2 puff 05/25/17 22:00 05/26/17 13:21 Symbicort 80/4.5mcg - IH 2 puff BID [facility] Administration Diltiazem HCl 240 mg 05/26/17 02:42 05/26/17 13:22 Cardizem Cd - PO 240 mg DAILY@1200 [facility] Administration Docusate Sodium 200 mg 05/26/17 12:00 05/26/17 11:03 Colace - PO 200 mg DAILY@1200 B[facility] Administration Donepezil HCl 10 mg 05/26/17 12:00 05/26/17 11:04 Aricept - PO 10 mg DAILY@1200 B[facility] Administration Enoxaparin Sodium 68 mg 05/25/17 21:45 05/26/17 11:05 Lovenox - SQ 68 mg BID B[facility] Administration Escitalopram Oxalate 10 mg 05/26/17 12:00 05/26/17 11:03 Lexapro - PO 10 mg DAILY@1200 B[facility] Administration Gabapentin 300 mg 05/25/17 22:00 05/26/17 13:22 Neurontin - PO 300 mg BID@1200,2200 B[place] Administration Sodium Chloride 1,000 mls @ 100 mls/hr 05/25/17 15:03 05/26/17 16:01 Normal Saline - IV Not Given ASDIR [place] Vancomycin HCl 1,000 mg/ 250 mls @ 166.667 mls/hr 05/25/17 22:00 05/26/17 11: 04 Dextrose IVPB 166.667 mls/hr BID B[facility] Administration Protocol Meropenem 1 gm in 20 mls @ 240 mls/hr 05/26/17 09:45 05/26/17 11:00 Merrem (Restricted To Id) - IVPUSH 240 mls/hr Q8H-IV [facility] Administration Protocol Levothyroxine Sodium 75 mcg 05/26/17 07:00 05/26/17 06:04 Synthroid - PO 75 mcg DAILY@0700 [facility] Administration Loratadine 10 mg 05/26/17 12:00 05/26/17 13:22 Claritin - PO 10 mg DAILY [facility] Administration Memantine 10 mg 05/25/17 22:00 05/26/17 11:04 Namenda - PO 10 mg BID B[place] Administration Non-Formulary Medication 1 ml 05/26/17 10:00 Olopatadine Hcl [Pataday] OU DAILY [facility] Oxybutynin Chloride 5 mg 05/26/17 12:00 05/26/17 13:22 Ditropan - PO 5 mg DAILY@1200 [facility] Administration Polyethylene Glycol 17 gm 11/24/17 12:00 05/26/17 13:21 Miralax (For Daily Use) - PO 17 gm DAILY@1200 [place] Administration Prednisone 15 mg 05/26/17 10:00 05/26/17 11:03 Deltasone - PO 15 mg DAILY [facility] Administration Senna 2 tab 05/25/17 22:00 05/25/17 21:01 Senna - PO 2 tab HS [place] Administration Tiotropium [place] 1 puff 05/26/17 10:00 05/26/17 13:21 Spiriva - IH 1 puff DAILY B[facility] Administration Laboratory Results - last 24 hr 05/25/17 05/25/17 05/26/17 11:54 11:54 06:00 WBC 24.2 H RBC 3.34 L Hgb 8.8 L Hct 28.7 L MCV 86.0 MCH 26.4 MCHC 30.7 L RDW 15.4 Plt Count 301 MPV 8.7 Neutrophils % 81.5 Lymphocytes % 7.7 L D Monocytes % 10.4 H Eosinophils % 0.2 Basophils % 0.2 ESR PT with INR INR VBG pH 7.37 POC VBG pCO2 60.9 H* POC VBG pO2 19.9 L* D Mixed VBG HCO3 34.6 H Sodium Potassium Chloride Carbon Dioxide Anion Gap BUN Creatinine Creat Clearance w eGFR Random Glucose Lactic Acid 0.8 Calcium Phosphorus Magnesium Ferritin Total Bilirubin AST ALT Alkaline Phosphatase C-Reactive Protein Total Protein Albumin Urine Color Urine Appearance Urine pH Ur Specific [place] Urine Protein Urine Glucose (UA) Urine Ketones Urine Blood Urine Nitrite Urine Bilirubin Urine Urobilinogen Urine WBC (Auto) Urine RBC (Auto) Ur Epithelial Cells Urine Mucus 05/26/17 05/26/17 05/26/17 06:00 06:00 06:00 WBC RBC Hgb Hct MCV MCH MCHC RDW Plt Count MPV Neutrophils % Lymphocytes % Monocytes % Eosinophils % Basophils % ESR PT with INR 13.90 H INR 1.23 H VBG pH POC VBG pCO2 POC VBG pO2 Mixed VBG HCO3 Sodium 143 Potassium 3.1 L Chloride 106 Carbon Dioxide 29 Anion Gap 8 BUN 15 Creatinine 0.9 Creat Clearance w eGFR 58.95 Random Glucose 95 Lactic Acid Calcium 7.5 L Phosphorus 2.9 D Magnesium 2.1 Ferritin 34.807 Total Bilirubin 0.3 D AST 12 L D ALT 15 D Alkaline Phosphatase 43 L D C-Reactive Protein 17.9 H Total Protein 5.0 L D Albumin 2.3 L D Urine Color Urine Appearance Urine pH Ur Specific [place] Urine Protein Urine Glucose (UA) Urine Ketones Urine Blood Urine Nitrite Urine Bilirubin Urine Urobilinogen Urine WBC (Auto) Urine RBC (Auto) Ur Epithelial Cells Urine Mucus 05/26/17 05/26/17 05/26/17 06:00 06:00 06:55 WBC RBC Hgb Hct MCV MCH MCHC RDW Plt Count MPV Neutrophils % Lymphocytes % Monocytes % Eosinophils % Basophils % ESR 47 H PT with INR INR VBG pH POC VBG pCO2 POC VBG pO2 Mixed VBG HCO3 Sodium Potassium Chloride Carbon Dioxide Anion Gap BUN Creatinine Creat Clearance w eGFR Random Glucose Lactic Acid Calcium Phosphorus Magnesium Ferritin Total Bilirubin AST ALT Alkaline Phosphatase C-Reactive Protein Cancelled Total Protein Albumin Urine Color Dkyellow Urine Appearance Slcloudy Urine pH 5.0 D Ur Specific [place] 1.024 Urine Protein 1+ H Urine Glucose (UA) Negative Urine Ketones Negative Urine Blood Negative Urine Nitrite Negative Urine Bilirubin Negative Urine Urobilinogen Negative Urine WBC (Auto) 17 Urine RBC (Auto) 2 Ur Epithelial Cells Rare Urine Mucus Moderate Microbiology 05/25/17 12:10 Blood - Peripheral Venous Blood Culture - Preliminary NO GROWTH OBTAINED AFTER 24 HOURS, INCUBATION TO CONTINUE FOR 4 DAYS. 05/25/17 12:10 Blood - Peripheral Venous Blood Culture - Preliminary NO GROWTH OBTAINED AFTER 24 HOURS, INCUBATION TO CONTINUE FOR 4 DAYS. 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 Nugent), Recent admission to [facility] for fall/PNA when found with right superficial femoral vein DVT on xarelto, hypothyroidism admitted with sepsis, left forearm/ elbow swelling in the setting recent fall with LUE cut/trauma. 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 PLan for re-evaluation and I&D tomorrow based on clinical progression. ID input appreciated. Cefepime changed to meropenem. Continue vancomycin. Drainage sent for cultures, will follow up. Follow up LUE doppler and MRI LUE. IV hydration, monitor vitals closely. Telemetry with sinus tach in the setting of fevers/sepsis, HR improved, Monitor for now. LE US with persistent superifical femoral vein DVT. Discussed with orthopedic, hold xarelto for likely repeat intervention tomorrow. Will address lovenox per- operatively if additional intervention warranted, monitor for now. Continue cardizem. Hold cellcept. Continue prednisone. Stress dose steroids as indicated. Continue levothyroxine. Code status: full for now. DVTPPX, heparin if unable to resume xarelto in 24 hours pending orthopedic intervention tomorrow. Fall/aspiration precautions. Follow up iron panel. GIPPx withPPI Dispo pending resolution of medical issues. Ongoing sepsis with need for broad spectum antibiotics, surgical intervention and close hemodynamic monitoring.
[2017-05-26 19:17] LABS: URINE LEUK ESTERASE Negative (NEGATIVE)
[2017-05-26] MEDS: ENOXAPARIN NA (PORCINE) 40 MG/0.4 ML DISP.SYRIN SQ SCH (20:39)
[2017-05-26] MEDS: SENNOSIDES 8.6MG TABLET (FP) PO SCH (22:31)
[2017-05-26] MEDS: ATORVASTATIN CA 10 MG TABLET (FP) PO SCH (22:31)
[2017-05-27] MEDS: MEROPENEM 1 GM PUSH 1 GM/20 ML DISP.SYRIN IVPUSH SCH ×3 (02:53→17:39)
[2017-05-27] MEDS: ACETAMINOPHEN 325 MG TABLET (FP) PO PRN (04:41)
[2017-05-27 06:06] LABS: SERUM IRON 8 ug/dL (27-139); TOTAL IRON BINDING CAPACITY 248 ug/dL (250-450); TRANSFERRIN 224 mg/dL (200-370); UIBC 240 ug/dL (118-369)
[2017-05-27] MEDS: LEVOTHYROXINE NA 75 MCG TABLET (FP) PO SCH (06:28)
[2017-05-27] MEDS: ENOXAPARIN NA (PORCINE) 40 MG/0.4 ML DISP.SYRIN SQ SCH ×2 (06:28→17:38)
[2017-05-27 07:34] LABS: MCH 26.5 pg (25.7-33.7); MCHC 30.6 g/dl (32.0-36.0); MEAN CELL VOLUME 86.9 fl (80-96); MEAN PLT VOLUME 8.5 fl (7.5-11.1); PLATELET COUNT 260 K/MM3 (134-434); RDW 15.6 % (11.6-15.6); WHITE BLOOD COUNT 25.5 K/mm3 (4.0-10.0)
[2017-05-27 08:18] LABS: ALBUMIN 2.3 g/dl (3.4-5.0); ALK PHOS 51 U/L (45-117); ANION GAP 8 (8-16); BILIRUBIN,TOTAL 0.5 mg/dL (0.2-1.0); CALCIUM 7.6 mg/dL (8.5-10.1); CO2 24 mmol/L (21-32); CREATININE 0.6 mg/dL (0.55-1.02); GLUCOSE,RANDOM 83 mg/dL (74-106); SGOT/AST 13 U/L (15-37); SGPT/ALT 16 U/L (12-78); TOT PROT 5.2 g/dl (6.4-8.2)
--- NOTE | 2017-05-27 09:09 | PN ---
Teaching Attending Note Name of Resident: Cassandra Turner ATTENDING PHYSICIAN STATEMENT Time of evaluation: 8:10 AM I saw and evaluated the patient. I reviewed the resident's note and discussed the case with the resident. I agree with the resident's findings and plan as documented. SUBJECTIVE: Patient seen and examined, sleeping comfortably, reports pain over left forearm and elbow, otherwise no other complaints. OBJECTIVE: Vital Signs Period Temp Pulse Resp BP Sys/Bahena Pulse Ox Last 24 Hr 97.6 F-101.3 F 84-110 18-20 104-143/54-68 94-95 Intake & Output 05/24/17 05/25/17 05/26/17 05/27/17 23:59 23:59 23:59 23:59 Intake Total 600 1200 700 Balance 600 1200 700 Weight 152 lb General: comfortable in bed Extremities: Left forearm/elbow swelling overall unchanged from yesterday, with erythema, fluctuation, warmth and tenderness, positive pulses bilaterally LE no edema Chest: decreased effort, no rales or wheezing appreciated CVS: S1S2 irregular Home Medication List Medication Instructions Recorded Confirmed Type Aa/Hydrolyzed Collagen, Whey [Lps 30 ml PO DAILY 01/12/17 05/25/17 History 15-30 Liquid] Acetaminophen [Tylenol] 650 mg PO QID PRN 01/12/17 05/25/17 History Albuterol Sulfate [Proventil HFA 1 - 2 inh PO QID PRN 01/12/17 05/25/17 History Inhaler -] Alprazolam [Xanax] 0.25 mg PO TID 01/12/17 05/25/17 History Aspirin [Children's Aspirin] 81 mg PO DAILY 01/12/17 05/25/17 History Atorvastatin Ca [Lipitor] 10 mg PO HS 01/12/17 05/25/17 History Calcium Carbonate/Vitamin D3 1 each PO BID@1200,2200 01/12/17 05/25/17 History [Oyster Shell 500-Vit D3 200 Tb] Diltiazem Cd [Cardizem Cd -] 240 mg PO DAILY@1200 01/12/17 05/25/17 History Docusate Sodium 200 mg PO DAILY@1200 01/12/17 05/25/17 History Donepezil HCl [Aricept] 10 mg PO DAILY@1200 01/12/17 05/25/17 History Escitalopram Oxalate [Lexapro -] 10 mg PO DAILY@1200 01/12/17 05/25/17 History Gabapentin 300 mg PO BID@1200,2200 01/12/17 05/25/17 History Levothyroxine [Synthroid -] 75 mcg PO DAILY@1200 01/12/17 05/25/17 History Loratadine [Allergy] 10 mg PO DAILY 01/12/17 05/25/17 History Memantine HCl [Namenda -] 10 mg PO BID 01/12/17 05/25/17 History Multivitamin with Iron [Daily Mabel 1 each PO DAILY 01/12/17 05/25/17 History with Iron] Mycophenolate Mofetil [Cellcept] 500 mg PO DAILY 01/12/17 05/25/17 History Olopatadine HCl [Pataday] 1 ml OU DAILY 01/12/17 05/25/17 History Oxybutynin Chloride [Oxybutynin 5 mg PO DAILY@1200 01/12/17 05/25/17 History Chloride ER] Polyethylene Glycol 3350 [Miralax 17 gm PO DAILY@1200 01/12/17 05/25/17 History 119 gm Btl -] Sennosides [Senna] 17.2 mg PO HS 01/12/17 05/25/17 History Tiotropium [place] [Spiriva] 18 mcg IH DAILY 03/16/17 05/25/17 History Active Medications Generic Name Dose Route Start Last Admin Trade Name Freq PRN Reason Stop Dose Admin Acetaminophen 650 mg 05/25/17 14:19 05/27/17 04:41 Tylenol - PO 650 mg QID PRN Administration PAIN Albuterol Sulfate 1 - 2 puff 05/25/17 14:19 Ventolin Hfa Inhaler - IH QID PRN SHORT OF BREATH/WHEEZING Alprazolam 0.25 mg 05/25/17 14:19 05/25/17 21:01 Xanax - PO 0.25 mg Q8H PRN Administration ANXIETY Atorvastatin Calcium 10 mg 05/25/17 22:00 05/26/17 22:31 Lipitor - PO 10 mg HS BEVERLY Administration Budesonide/Formoterol Fumarate 2 puff 05/25/17 22:00 05/26/17 22:31 Symbicort 80/4.5mcg - IH 2 puff BID BEVERLY Administration Diltiazem HCl 240 mg 05/26/17 02:42 05/26/17 13:22 Cardizem Cd - PO 240 mg DAILY@1200 BEVER[place] Administration Docusate Sodium 200 mg 05/26/17 12:00 05/26/17 11:03 Colace - PO 200 mg DAILY@1200 BEVERLY Administration Donepezil HCl 10 mg 05/26/17 12:00 05/26/17 11:04 Aricept - PO 10 mg DAILY@1200 B[place] Administration Enoxaparin Sodium 40 mg 05/26/17 18:00 05/27/17 06:28 Lovenox - SQ 40 mg BID@0600,1800 BEVERLY Administration Escitalopram Oxalate 10 mg 05/26/17 12:00 05/26/17 11:03 Lexapro - PO 10 mg DAILY@1200 B[place] Administration Gabapentin 300 mg 05/25/17 22:00 05/26/17 22:31 Neurontin - PO 300 mg BID@1200,2200 B[place] Administration Sodium Chloride 1,000 mls @ 100 mls/hr 05/25/17 15:03 05/26/17 20:39 Normal Saline - IV 100 mls/hr ASDIR [place] Administration Vancomycin HCl 1,000 mg/ 250 mls @ 166.667 mls/hr 05/25/17 22:00 05/26/17 22: 32 Dextrose IVPB 166.667 mls/hr BID BEVERLY Administration Protocol Meropenem 1 gm in 20 mls @ 240 mls/hr 05/26/17 09:45 05/27/17 02:53 Merrem (Restricted To Id) - IVPUSH 240 mls/hr Q8H-IV B[facility] Administration Protocol Levothyroxine Sodium 75 mcg 05/26/17 07:00 05/27/17 06:28 Synthroid - PO 75 mcg DAILY@0700 B[place] Administration Loratadine 10 mg 05/26/17 12:00 05/26/17 13:22 Claritin - PO 10 mg DAILY B[place] Administration Memantine 10 mg 05/25/17 22:00 05/26/17 22:31 Namenda - PO 10 mg BID B[place] Administration Non-Formulary Medication 1 ml 05/26/17 10:00 Olopatadine Hcl [Pataday] OU DAILY B[facility] Oxybutynin Chloride 5 mg 05/26/17 12:00 05/26/17 13:22 Ditropan - PO 5 mg DAILY@1200 B[place] Administration Polyethylene Glycol 17 gm 05/26/17 12:00 05/26/17 13:21 Miralax (For Daily Use) - PO 17 gm DAILY@1200 B[place] Administration Prednisone 15 mg 05/26/17 10:00 05/26/17 11:03 Deltasone - PO 15 mg DAILY B[place] Administration Senna 2 tab 05/25/17 22:00 05/26/17 22:31 Senna - PO 2 tab HS B[place]LY Administration Tiotropium [place] 1 puff 05/26/17 10:00 05/26/17 13:21 Spiriva - IH 1 puff DAILY BEVER[place] Administration Laboratory Results - last 24 hr 05/25/17 05/25/17 05/26/17 11:54 11:54 06:00 WBC RBC Hgb Hct MCV MCH MCHC RDW Plt Count MPV ESR VBG pH 7.37 POC VBG pCO2 60.9 H* POC VBG pO2 19.9 L* D Mixed VBG HCO3 34.6 H Sodium Potassium Chloride Carbon Dioxide Anion Gap BUN Creatinine Creat Clearance w eGFR Random Glucose Lactic Acid 0.8 Calcium Iron 8 L TIBC 248 L Iron Saturation 3 L Transferrin 224 Total Bilirubin AST ALT Alkaline Phosphatase Total Protein Albumin Urine Color Urine Appearance Urine pH Ur Specific [place] Urine Protein Urine Glucose (UA) Urine Ketones Urine Blood Urine Nitrite Urine Bilirubin Urine Urobilinogen Ur Leukocyte Esterase Urine WBC (Auto) Urine RBC (Auto) Ur Epithelial Cells Urine Mucus 05/26/17 05/26/17 05/27/17 06:00 06:55 06:00 WBC 25.5 H RBC 3.02 L Hgb 8.0 L Hct 26.2 L MCV 86.9 MCH 26.5 MCHC 30.6 L RDW 15.6 Plt Count 260 MPV 8.5 ESR 47 H VBG pH POC VBG pCO2 POC VBG pO2 Mixed VBG HCO3 Sodium Potassium Chloride Carbon Dioxide Anion Gap BUN Creatinine Creat Clearance w eGFR Random Glucose Lactic Acid Calcium Iron TIBC Iron Saturation Transferrin Total Bilirubin AST ALT Alkaline Phosphatase Total Protein Albumin Urine Color Dkyellow Urine Appearance Slcloudy Urine pH 5.0 D Ur Specific [place] 1.024 Urine Protein 1+ H Urine Glucose (UA) Negative Urine Ketones Negative Urine Blood Negative Urine Nitrite Negative Urine Bilirubin Negative Urine Urobilinogen Negative Ur Leukocyte Esterase Negative Urine WBC (Auto) 17 Urine RBC (Auto) 2 Ur Epithelial Cells Rare Urine Mucus Moderate 05/27/17 06:00 WBC RBC Hgb Hct MCV MCH MCHC RDW Plt Count MPV ESR VBG pH POC VBG pCO2 POC VBG pO2 Mixed VBG HCO3 Sodium 141 Potassium 3.8 D Chloride 109 H Carbon Dioxide 24 Anion Gap 8 BUN 16 Creatinine 0.6 D Creat Clearance w eGFR > 60 Random Glucose 83 Lactic Acid Calcium 7.6 L Iron TIBC Iron Saturation Transferrin Total Bilirubin 0.5 D AST 13 L ALT 16 Alkaline Phosphatase 51 Total Protein 5.2 L Albumin 2.3 L Urine Color Urine Appearance Urine pH Ur Specific [place] Urine Protein Urine Glucose (UA) Urine Ketones Urine Blood Urine Nitrite Urine Bilirubin Urine Urobilinogen Ur Leukocyte Esterase Urine WBC (Auto) Urine RBC (Auto) Ur Epithelial Cells Urine Mucus Microbiology 05/25/17 12:10 Blood - Peripheral Venous Blood Culture - Preliminary NO GROWTH OBTAINED AFTER 24 HOURS, INCUBATION TO CONTINUE FOR 4 DAYS. 05/25/17 12:10 Blood - Peripheral Venous Blood Culture - Preliminary NO GROWTH OBTAINED AFTER 24 HOURS, INCUBATION TO CONTINUE FOR 4 DAYS. 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 Nugent), Recent admission to [facility] for fall/PNA when found with right superficial femoral vein DVT on xarelto, hypothyroidism admitted with sepsis, left forearm/ elbow swelling in the setting recent fall with LUE cut/trauma. 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 Follow up with Dr. Real as needs I&D given persistent leucocytosis and symptoms. MRI with ?small elbow joint effusion, follow up with orthopedic if tap indicated. meropenem day 1 (after 1 day of cefepime), vancomycin day 2, check vanco trough today before 4th dose. Fluid cultures sent, will follow up. ID input appreciated. ZOHREH with basilic vein DVT, patient currently on xarelto for recent superficial femoral vein DVT which is persistent on repeat imaging this admission. Xarelto on hold pending orthopedic intervention. Continue cardizem. Hold cellcept. Continue prednisone. Stress dose steroids as indicated. Continue levothyroxine. Code status: full for now. DVTPPX, heparin if unable to resume xarelto in 24 hours pending orthopedic intervention. Fall/aspiration precautions. Iron panel noted, Start oral Fe. Hb trending down, likely from hydration/ hemodilution, monitor for bleed. Check Stool occult. GIPPx withPPI Dispo pending resolution of medical issues. Ongoing sepsis with need for broad spectum antibiotics, surgical intervention and close hemodynamic monitoring. Continue telemetry.
[2017-05-27] MEDS ORDERED: PT OWN MED DRAWER 7, Y5N ONE ×3 (10:28→21:30)
[2017-05-27] MEDS: VANCOMYCIN 1,000 MG in DEXTROSE 5%-WATER - 250 ML IVPB SCH ×2 (10:34→22:42)
--- NOTE | 2017-05-27 10:38 | PN ---
Progress Note, Physician Chief Complaint: ID Vancomycin and Meropenem NAD Afebrile Tmax 101 - Current Medication List Current Medications: Active Medications Acetaminophen (Tylenol -) 650 mg PO QID PRN PRN Reason: PAIN Last Admin: 05/27/17 04:41 Dose: 650 mg Albuterol Sulfate (Ventolin Hfa Inhaler -) 1 - 2 puff IH QID PRN PRN Reason: SHORT OF BREATH/WHEEZING Alprazolam (Xanax -) 0.25 mg PO Q8H PRN PRN Reason: ANXIETY Last Admin: 05/25/17 21:01 Dose: 0.25 mg Atorvastatin Calcium (Lipitor -) 10 mg PO HS [facility] Last Admin: 05/26/17 22:31 Dose: 10 mg Budesonide/Formoterol Fumarate (Symbicort 80/4.5mcg -) 2 puff IH BID [facility] Last Admin: 05/26/17 22:31 Dose: 2 puff Diltiazem HCl (Cardizem Cd -) 240 mg PO DAILY@1200 [facility] Last Admin: 05/26/17 13:22 Dose: 240 mg Docusate Sodium (Colace -) 200 mg PO DAILY@1200 [facility] Last Admin: 05/26/17 11:03 Dose: 200 mg Donepezil HCl (Aricept -) 10 mg PO DAILY@1200 [facility] Last Admin: 05/26/17 11:04 Dose: 10 mg Enoxaparin Sodium (Lovenox -) 40 mg SQ BID@0600,1800 [facility] Last Admin: 05/27/17 06:28 Dose: 40 mg Escitalopram Oxalate (Lexapro -) 10 mg PO DAILY@1200 [facility] Last Admin: 05/26/17 11:03 Dose: 10 mg Ferrous Sulfate (Feosol -) 325 mg PO DAILY [facility] Gabapentin (Neurontin -) 300 mg PO BID@1200,2200 [facility] Last Admin: 05/26/17 22:31 Dose: 300 mg Sodium Chloride (Normal Saline -) 1,000 mls @ 100 mls/hr IV ASDIR [facility] Last Admin: 05/26/17 20:39 Dose: 100 mls/hr Vancomycin HCl 1,000 mg/ (Dextrose) 250 mls @ 166.667 mls/hr IVPB BID [facility] PRN Reason: Protocol Last Admin: 05/26/17 22:32 Dose: 166.667 mls/hr Meropenem (Merrem (Restricted To Id) -) 1 gm in 20 mls @ 240 mls/hr IVPUSH Q8H- IV [facility] PRN Reason: Protocol Last Admin: 05/27/17 02:53 Dose: 240 mls/hr Levothyroxine Sodium (Synthroid -) 75 mcg PO DAILY@0700 [facility] Last Admin: 05/27/17 06:28 Dose: 75 mcg Loratadine (Claritin -) 10 mg PO DAILY [facility] Last Admin: 05/26/17 13:22 Dose: 10 mg Memantine (Namenda -) 10 mg PO BID [facility] Last Admin: 05/26/17 22:31 Dose: 10 mg Non-Formulary Medication (Olopatadine Hcl [Pataday]) 1 ml OU DAILY [facility] Oxybutynin Chloride (Ditropan -) 5 mg PO DAILY@1200 [facility] Last Admin: 05/26/17 13:22 Dose: 5 mg Polyethylene Glycol (Miralax (For Daily Use) -) 17 gm PO DAILY@1200 [facility] Last Admin: 05/26/17 13:21 Dose: 17 gm Prednisone (Deltasone -) 15 mg PO DAILY [facility] Last Admin: 05/26/17 11:03 Dose: 15 mg Senna (Senna -) 2 tab PO HS [facility] Last Admin: 05/26/17 22:31 Dose: 2 tab Tiotropium [place] (Spiriva -) 1 puff IH DAILY [facility] Last Admin: 05/26/17 13:21 Dose: 1 puff - Objective Vital Signs: Vital Signs Temperature 98.4 F 05/27/17 06:00 Pulse Rate 84 05/27/17 06:00 Respiratory Rate 20 05/27/17 06:00 Blood Pressure 108/58 05/27/17 06:00 O2 Sat by Pulse Oximetry (%) 95 05/26/17 21:00 Constitutional: Yes: No Distress Extremities: Yes: Other (Left arm swollen erythematous especially around the elbow) Labs: CBC, BMP 05/27/17 06:00 05/27/17 06:00 INR, PTT INR 1.23 (0.82-1.09) H 05/26/17 06:00 Assessment/Plan Microbiology 05/26/17 06:55 Urine - Urine Clean Catch Urine Culture - Final NO GROWTH OBTAINED 05/25/17 12:10 Blood - Peripheral Venous Blood Culture - Preliminary NO GROWTH OBTAINED AFTER 24 HOURS, INCUBATION TO CONTINUE FOR 4 DAYS. 05/25/17 12:10 Blood - Peripheral Venous Blood Culture - Preliminary NO GROWTH OBTAINED AFTER 24 HOURS, INCUBATION TO CONTINUE FOR 4 DAYS. Laboratory Tests 05/26/17 05/26/17 05/27/17 06:00 06:00 06:00 WBC 25.5 H Hgb 8.0 L Hct 26.2 L Plt Count 260 ESR 47 H BUN Creatinine C-Reactive Protein 17.9 H 05/27/17 06:00 WBC Hgb Hct Plt Count ESR BUN 16 Creatinine 0.6 D C-Reactive Protein Assessment Infected olecranon bursistis aspirated yesterday Culture pending Leukocytosis noted Plan Continue current antibiotics Await culture report Contact isolation ESBL Apr 2017 Vancomycin trough level Maria Dolores SHIRLEY
[2017-05-27] MEDS: BUDESONIDE/FORMETEROL FUMARATE 80/4.5 mcg INHALER IH SCH ×2 (10:42→22:41)
[2017-05-27] MEDS: TIOTROPIUM BROMIDE 18 MCG/INH (DEVICE W/ 5 CAPSULES) IH SCH (10:42)
[2017-05-27] MEDS: predniSONE 5 MG TABLET (UD) PO SCH (10:42)
[2017-05-27] MEDS: FERROUS SO4 325 MG TABLET (FP) PO SCH (10:42)
[2017-05-27] MEDS: LORATADINE 10 MG TABLET PO SCH (10:43)
[2017-05-27] MEDS: MEMANTINE HCL 10 MG TABLET (FP) PO SCH ×2 (10:43→22:42)
[2017-05-27 12:39] LABS: PLATELET COMMENTS NO CLUMPING NOTED; PLATELET ESTIMATE ADEQUATE; TOTAL CELLS COUNTED 100
[2017-05-27] MEDS: ESCITALOPRAM OXALATE 10 MG TABLET (FP) PO SCH (12:55)
[2017-05-27] MEDS: GABAPENTIN 300 MG CAPSULE (FP) PO SCH ×2 (12:55→22:42)
[2017-05-27] MEDS: DOCUSATE SODIUM 100 MG CAPSULE (FP) PO SCH (12:55)
[2017-05-27] MEDS: DONEPEZIL HCL 10 MG TABLET (FP) PO SCH (12:55)
[2017-05-27] MEDS: OXYBUTYNIN CHLORIDE 5 MG TABLET PO SCH (12:55)
[2017-05-27] MEDS: POLYETHYLENE GLYCOL 3350 119 GM BTL PO SCH (12:56)
--- NOTE | 2017-05-27 13:15 | PN ---
Progress Note (short form) - Note Progress Note: Resting in NAD. Offers no complaints. No acute events overnight. Intake & Output 05/24/17 05/25/17 05/26/17 05/27/17 23:59 23:59 23:59 23:59 Intake Total 600 1200 700 Balance 600 1200 700 Weight 152 lb Last Vital Signs Temp Pulse Resp BP Pulse Ox 98.2 F 90 20 115/68 95 05/27/17 10:00 05/27/17 10:00 05/27/17 10:00 05/27/17 10:00 05/26/17 21:00 Active Medications Acetaminophen (Tylenol -) 650 mg PO QID PRN PRN Reason: PAIN Last Admin: 05/27/17 04:41 Dose: 650 mg Albuterol Sulfate (Ventolin Hfa Inhaler -) 1 - 2 puff IH QID PRN PRN Reason: SHORT OF BREATH/WHEEZING Alprazolam (Xanax -) 0.25 mg PO Q8H PRN PRN Reason: ANXIETY Last Admin: 05/25/17 21:01 Dose: 0.25 mg Atorvastatin Calcium (Lipitor -) 10 mg PO HS [facility] Last Admin: 05/26/17 22:31 Dose: 10 mg Budesonide/Formoterol Fumarate (Symbicort 80/4.5mcg -) 2 puff IH BID [facility] Last Admin: 05/27/17 10:42 Dose: 2 puff Diltiazem HCl (Cardizem Cd -) 240 mg PO DAILY@1200 [facility] Last Admin: 05/27/17 12:55 Dose: 240 mg Docusate Sodium (Colace -) 200 mg PO DAILY@1200 [facility] Last Admin: 05/27/17 12:55 Dose: 200 mg Donepezil HCl (Aricept -) 10 mg PO DAILY@1200 [facility] Last Admin: 05/27/17 12:55 Dose: 10 mg Enoxaparin Sodium (Lovenox -) 40 mg SQ BID@0600,1800 [facility] Last Admin: 05/27/17 06:28 Dose: 40 mg Escitalopram Oxalate (Lexapro -) 10 mg PO DAILY@1200 [facility] Last Admin: 05/27/17 12:55 Dose: 10 mg Ferrous Sulfate (Feosol -) 325 mg PO DAILY [facility] Last Admin: 05/27/17 10:42 Dose: 325 mg Gabapentin (Neurontin -) 300 mg PO BID@1200,2200 [facility] Last Admin: 05/27/17 12:55 Dose: 300 mg Sodium Chloride (Normal Saline -) 1,000 mls @ 100 mls/hr IV ASDIR [facility] Last Admin: 05/26/17 20:39 Dose: 100 mls/hr Vancomycin HCl 1,000 mg/ (Dextrose) 250 mls @ 166.667 mls/hr IVPB BID [facility] PRN Reason: Protocol Last Admin: 05/27/17 10:34 Dose: 166.667 mls/hr Meropenem (Merrem (Restricted To Id) -) 1 gm in 20 mls @ 240 mls/hr IVPUSH Q8H- IV [facility] PRN Reason: Protocol Last Admin: 05/27/17 12:56 Dose: 240 mls/hr Levothyroxine Sodium (Synthroid -) 75 mcg PO DAILY@0700 [facility] Last Admin: 05/27/17 06:28 Dose: 75 mcg Loratadine (Claritin -) 10 mg PO DAILY [facility] Last Admin: 05/27/17 10:43 Dose: 10 mg Memantine (Namenda -) 10 mg PO BID [facility] Last Admin: 05/27/17 10:43 Dose: 10 mg Non-Formulary Medication (Olopatadine Hcl [Pataday]) 1 ml OU DAILY [facility] Oxybutynin Chloride (Ditropan -) 5 mg PO DAILY@1200 [facility] Last Admin: 05/27/17 12:55 Dose: 5 mg Polyethylene Glycol (Miralax (For Daily Use) -) 17 gm PO DAILY@1200 [facility] Last Admin: 05/27/17 12:56 Dose: 17 gm Prednisone (Deltasone -) 15 mg PO DAILY [facility] Last Admin: 05/27/17 10:42 Dose: 15 mg Senna (Senna -) 2 tab PO HS [facility] Last Admin: 05/26/17 22:31 Dose: 2 tab Tiotropium [place] (Spiriva -) 1 puff IH DAILY [facility] Last Admin: 05/27/17 10:42 Dose: 1 puff Constitutional: Yes: NAD Eyes: Yes: EOM Intact HENT: Yes: Normocephalic Neck: Yes: Trachea Midline Cardiovascular: Yes: S1, S2 Respiratory: Yes: Few scattered rhonchi Gastrointestinal: Yes: Normal Bowel Sounds, Soft Renal/: Yes: WNL Breast(s): Yes: Other (deferred) Musculoskeletal: Yes: WNL Extremities: Yes: Erythema, Other (edema left upper ext) Neurological: Yes: Other (dementia) ...Motor Strength: WNL Labs: Laboratory Results - last 24 hr 05/25/17 05/25/17 05/26/17 11:54 11:54 06:00 WBC RBC Hgb Hct MCV MCH MCHC RDW Plt Count MPV Total Counted Neutrophils % (Manual) Band Neutrophils % Lymphocytes % (Manual) Monocytes % (Manual) Manual Slide Review Platelet Estimate Platelet Comment ESR VBG pH 7.37 POC VBG pCO2 60.9 H* POC VBG pO2 19.9 L* D Mixed VBG HCO3 34.6 H Sodium Potassium Chloride Carbon Dioxide Anion Gap BUN Creatinine Creat Clearance w eGFR Random Glucose Lactic Acid 0.8 Calcium Iron 8 L TIBC 248 L Iron Saturation 3 L Transferrin 224 Total Bilirubin AST ALT Alkaline Phosphatase Total Protein Albumin Urine Color Urine Appearance Urine pH Ur Specific Western Urine Protein Urine Glucose (UA) Urine Ketones Urine Blood Urine Nitrite Urine Bilirubin Urine Urobilinogen Ur Leukocyte Esterase Urine WBC (Auto) Urine RBC (Auto) Ur Epithelial Cells Urine Mucus Vancomycin Pre-Dose 05/26/17 05/26/17 05/27/17 06:00 06:55 06:00 WBC 25.5 H RBC 3.02 L Hgb 8.0 L Hct 26.2 L MCV 86.9 MCH 26.5 MCHC 30.6 L RDW 15.6 Plt Count 260 MPV 8.5 Total Counted Neutrophils % (Manual) Band Neutrophils % Lymphocytes % (Manual) Monocytes % (Manual) Manual Slide Review No Result Required. Platelet Estimate Platelet Comment ESR 47 H VBG pH POC VBG pCO2 POC VBG pO2 Mixed VBG HCO3 Sodium Potassium Chloride Carbon Dioxide Anion Gap BUN Creatinine Creat Clearance w eGFR Random Glucose Lactic Acid Calcium Iron TIBC Iron Saturation Transferrin Total Bilirubin AST ALT Alkaline Phosphatase Total Protein Albumin Urine Color Dkyellow Urine Appearance Slcloudy Urine pH 5.0 D Ur Specific Western 1.024 Urine Protein 1+ H Urine Glucose (UA) Negative Urine Ketones Negative Urine Blood Negative Urine Nitrite Negative Urine Bilirubin Negative Urine Urobilinogen Negative Ur Leukocyte Esterase Negative Urine WBC (Auto) 17 Urine RBC (Auto) 2 Ur Epithelial Cells Rare Urine Mucus Moderate Vancomycin Pre-Dose 05/27/17 05/27/17 05/27/17 06:00 09:04 10:35 WBC RBC Hgb Hct MCV MCH MCHC RDW Plt Count MPV Total Counted 100 Neutrophils % (Manual) 80.0 Band Neutrophils % 9.0 Lymphocytes % (Manual) 6.0 L Monocytes % (Manual) 5 Manual Slide Review Platelet Estimate Adequate Platelet Comment No clumping noted ESR VBG pH POC VBG pCO2 POC VBG pO2 Mixed VBG HCO3 Sodium 141 Potassium 3.8 D Chloride 109 H Carbon Dioxide 24 Anion Gap 8 BUN 16 Creatinine 0.6 D Creat Clearance w eGFR > 60 Random Glucose 83 Lactic Acid Calcium 7.6 L Iron TIBC Iron Saturation Transferrin Total Bilirubin 0.5 D AST 13 L ALT 16 Alkaline Phosphatase 51 Total Protein 5.2 L Albumin 2.3 L Urine Color Urine Appearance Urine pH Ur Specific Western Urine Protein Urine Glucose (UA) Urine Ketones Urine Blood Urine Nitrite Urine Bilirubin Urine Urobilinogen Ur Leukocyte Esterase Urine WBC (Auto) Urine RBC (Auto) Ur Epithelial Cells Urine Mucus Vancomycin Pre-Dose 6.575 Problem List - Problems (1) COPD (chronic obstructive pulmonary disease) Code(s): J44.9 - CHRONIC OBSTRUCTIVE PULMONARY DISEASE, UNSPECIFIED (2) Anemia Code(s): D64.9 - ANEMIA, UNSPECIFIED (3) Cellulitis of left elbow Code(s): L03.114 - CELLULITIS OF LEFT UPPER LIMB (4) Cellulitis of upper extremity Code(s): L03.119 - CELLULITIS OF UNSPECIFIED PART OF LIMB Assessment/Plan ABX per ID O2 as needed VTE prophylaxis BD TX Dr Moss
--- NOTE | 2017-05-27 13:36 | PN ---
Progress Note (short form) - Note Progress Note: feeling much better. Much less pain. Physical examination: There is no further olecranon bursitis. There is no redness. There is no tenderness. She has regained near full range of motion of the elbow. She does have some swelling of the entire upper extremity. This appears to be independent and not elevated. Cultures are pending. Gram stain showed multiple white blood cells and gram- positive cocci Impression: LEFT olecranon septic bursitis Plan: I recommended continued IV antibiotics as per infectious disease. I recommended strict elevation of LEFT upper extremity. Will follow Problem List - Problems (1) Bursitis due to bacterial infection Code(s): M71.10 - OTHER INFECTIVE BURSITIS, UNSPECIFIED SITE; B96.89 - OTH BACTERIAL AGENTS THE CAUSE OF DISEASES CLASSD [id number]
[2017-05-27] MEDS: SODIUM CHLORIDE 1,000 ML IV SCH (17:38)
[2017-05-27] MEDS: OLOPATADINE HCL OU SCH (21:21)
[2017-05-27] MEDS: ALPRAZolam 0.25 MG TABLET PO PRN (22:42)
[2017-05-27] MEDS: ATORVASTATIN CA 10 MG TABLET (FP) PO SCH (22:42)
[2017-05-27] MEDS: SENNOSIDES 8.6MG TABLET (FP) PO SCH (22:42)
[2017-05-28] MEDS: MEROPENEM 1 GM PUSH 1 GM/20 ML DISP.SYRIN IVPUSH SCH ×2 (03:00→12:45)
[2017-05-28] MEDS ORDERED: PT OWN MED DRAWER 7, Y5N ONE ×4 (04:03→21:37)
[2017-05-28] MEDS: SODIUM CHLORIDE 1,000 ML IV SCH ×3 (04:24→22:08)
[2017-05-28] MEDS: ENOXAPARIN NA (PORCINE) 40 MG/0.4 ML DISP.SYRIN SQ SCH ×2 (06:55→18:37)
[2017-05-28] MEDS: LEVOTHYROXINE NA 75 MCG TABLET (FP) PO SCH (06:55)
[2017-05-28 07:40] LABS: BASOPHIL 0.3 % (0-2.0); EOSINOPHIL 0.5 % (0-4.5); MCH 26.1 pg (25.7-33.7); MCHC 30.5 g/dl (32.0-36.0); MEAN CELL VOLUME 85.5 fl (80-96); MEAN PLT VOLUME 8.4 fl (7.5-11.1); NEUTROPHILS 83.7 % (42.8-82.8); PLATELET COUNT 307 K/MM3 (134-434); RDW 15.6 % (11.6-15.6); WHITE BLOOD COUNT 19.9 K/mm3 (4.0-10.0)
[2017-05-28 07:50] LABS: INR 0.99 (0.82-1.09); PROTHROMBIN TIME (PATIENT) 11.2 SEC (9.98-11.88)
[2017-05-28 08:56] LABS: ALBUMIN 1.8 g/dl (3.4-5.0); ALK PHOS 48 U/L (45-117); ANION GAP 9 (8-16); BILIRUBIN,TOTAL 0.4 mg/dL (0.2-1.0); CO2 22 mmol/L (21-32); CREATININE 0.4 mg/dL (0.55-1.02); GLUCOSE,RANDOM 63 mg/dL (74-106); SGOT/AST 11 U/L (15-37); SGPT/ALT 13 U/L (12-78); TOT PROT 4.4 g/dl (6.4-8.2)
[2017-05-28 09:18] LABS: CALCIUM 6.7 mg/dL (8.5-10.1)
[2017-05-28] MEDS ORDERED: VANCOMYCIN 1,500 MG in DEXTROSE 5%-WATER - 500 ML IVPB SCH (10:00)
[2017-05-28] MEDS: predniSONE 5 MG TABLET (UD) PO SCH (11:13)
[2017-05-28] MEDS: DOCUSATE SODIUM 100 MG CAPSULE (FP) PO SCH (11:14)
[2017-05-28] MEDS: ESCITALOPRAM OXALATE 10 MG TABLET (FP) PO SCH (11:14)
[2017-05-28] MEDS: LORATADINE 10 MG TABLET PO SCH (11:14)
[2017-05-28] MEDS: DONEPEZIL HCL 10 MG TABLET (FP) PO SCH (11:14)
[2017-05-28] MEDS: GABAPENTIN 300 MG CAPSULE (FP) PO SCH ×2 (11:14→22:06)
[2017-05-28] MEDS: OXYBUTYNIN CHLORIDE 5 MG TABLET PO SCH (11:15)
[2017-05-28] MEDS: FERROUS SO4 325 MG TABLET (FP) PO SCH (11:15)
[2017-05-28] MEDS: MEMANTINE HCL 10 MG TABLET (FP) PO SCH ×2 (11:16→22:06)
[2017-05-28] MEDS: TIOTROPIUM BROMIDE 18 MCG/INH (DEVICE W/ 5 CAPSULES) IH SCH (11:16)
--- NOTE | 2017-05-28 12:35 | PN ---
Progress Note (short form) - Note Progress Note: Resting in NAD. No complaints. No acute events overnight. Intake & Output 05/25/17 05/26/17 05/27/17 05/28/17 23:59 23:59 23:59 23:59 Intake Total 600 1200 2220 600 Balance 600 1200 2220 600 Weight 152 lb Last Vital Signs Temp Pulse Resp BP Pulse Ox 98 F 102 H 20 142/83 95 05/28/17 10:00 05/28/17 10:00 05/28/17 10:00 05/28/17 10:00 05/28/17 09:00 Active Medications Acetaminophen (Tylenol -) 650 mg PO QID PRN PRN Reason: PAIN Last Admin: 05/27/17 04:41 Dose: 650 mg Albuterol Sulfate (Ventolin Hfa Inhaler -) 1 - 2 puff IH QID PRN PRN Reason: SHORT OF BREATH/WHEEZING Alprazolam (Xanax -) 0.25 mg PO Q8H PRN PRN Reason: ANXIETY Last Admin: 05/27/17 22:42 Dose: 0.25 mg Atorvastatin Calcium (Lipitor -) 10 mg PO HS [facility] Last Admin: 05/27/17 22:42 Dose: 10 mg Budesonide/Formoterol Fumarate (Symbicort 80/4.5mcg -) 2 puff IH BID [facility] Last Admin: 05/27/17 22:41 Dose: 2 puff Diltiazem HCl (Cardizem Cd -) 240 mg PO DAILY@1200 [facility] Last Admin: 05/28/17 11:15 Dose: 240 mg Docusate Sodium (Colace -) 200 mg PO DAILY@1200 [facility] Last Admin: 05/28/17 11:14 Dose: 200 mg Donepezil HCl (Aricept -) 10 mg PO DAILY@1200 [facility] Last Admin: 05/28/17 11:14 Dose: 10 mg Enoxaparin Sodium (Lovenox -) 40 mg SQ BID@0600,1800 [facility] Last Admin: 05/28/17 06:55 Dose: 40 mg Escitalopram Oxalate (Lexapro -) 10 mg PO DAILY@1200 [facility] Last Admin: 05/28/17 11:14 Dose: 10 mg Ferrous Sulfate (Feosol -) 325 mg PO DAILY [facility] Last Admin: 05/28/17 11:15 Dose: 325 mg Gabapentin (Neurontin -) 300 mg PO BID@1200,2200 [facility] Last Admin: 05/28/17 11:14 Dose: 300 mg Meropenem (Merrem (Restricted To Id) -) 1 gm in 20 mls @ 240 mls/hr IVPUSH Q8H- IV [facility] PRN Reason: Protocol Last Admin: 05/28/17 03:00 Dose: 240 mls/hr Vancomycin HCl 1,500 mg/ (Dextrose) 500 mls @ 166.667 mls/hr IVPB BID [facility] PRN Reason: Protocol Last Admin: 05/28/17 11:03 Dose: 166.667 mls/hr Sodium Chloride (Normal Saline -) 1,000 mls @ 75 mls/hr IV ASDIR [facility] Last Admin: 05/28/17 08:00 Dose: 75 mls/hr Levothyroxine Sodium (Synthroid -) 75 mcg PO DAILY@0700 [facility] Last Admin: 05/28/17 06:55 Dose: 75 mcg Loratadine (Claritin -) 10 mg PO DAILY [facility] Last Admin: 05/28/17 11:14 Dose: 10 mg Memantine (Namenda -) 10 mg PO BID [facility] Last Admin: 05/28/17 11:16 Dose: 10 mg Oxybutynin Chloride (Ditropan -) 5 mg PO DAILY@1200 [facility] Last Admin: 05/28/17 11:15 Dose: 5 mg Polyethylene Glycol (Miralax (For Daily Use) -) 17 gm PO DAILY@1200 [facility] Last Admin: 05/27/17 12:56 Dose: 17 gm Prednisone (Deltasone -) 15 mg PO DAILY [facility] Last Admin: 05/28/17 11:13 Dose: 15 mg Senna (Senna -) 2 tab PO HS [facility] Last Admin: 05/27/17 22:42 Dose: 2 tab Tiotropium [place] (Spiriva -) 1 puff IH DAILY [facility] Last Admin: 05/28/17 11:16 Dose: 1 puff Constitutional: Yes: NAD Eyes: Yes: EOM Intact HENT: Yes: Normocephalic Neck: Yes: Trachea Midline Cardiovascular: Yes: S1, S2 Respiratory: Yes: Few scattered rhonchi Gastrointestinal: Yes: Normal Bowel Sounds, Soft Renal/: Yes: WNL Breast(s): Yes: Other (deferred) Musculoskeletal: Yes: WNL Extremities: Yes: Erythema, Other (edema left upper ext) Neurological: Yes: Other (dementia) ...Motor Strength: WNL Labs: Laboratory Results - last 24 hr 05/27/17 05/28/17 05/28/17 09:04 06:10 06:10 WBC 19.9 H RBC 2.96 L Hgb 7.7 L Hct 25.3 L MCV 85.5 MCH 26.1 MCHC 30.5 L RDW 15.6 Plt Count 307 MPV 8.4 Total Counted 100 Neutrophils % 83.7 H Neutrophils % (Manual) 80.0 Band Neutrophils % 9.0 Lymphocytes % 7.2 L Lymphocytes % (Manual) 6.0 L Monocytes % 8.3 Monocytes % (Manual) 5 Eosinophils % 0.5 D Basophils % 0.3 Platelet Estimate Adequate Platelet Comment No clumping noted PT with INR 11.20 INR 0.99 Sodium Potassium Chloride Carbon Dioxide Anion Gap BUN Creatinine Creat Clearance w eGFR Random Glucose Calcium Total Bilirubin AST ALT Alkaline Phosphatase Total Protein Albumin 05/28/17 06:10 WBC RBC Hgb Hct MCV MCH MCHC RDW Plt Count MPV Total Counted Neutrophils % Neutrophils % (Manual) Band Neutrophils % Lymphocytes % Lymphocytes % (Manual) Monocytes % Monocytes % (Manual) Eosinophils % Basophils % Platelet Estimate Platelet Comment PT with INR INR Sodium 146 H Potassium 3.2 L Chloride 115 H Carbon Dioxide 22 Anion Gap 9 BUN 10 D Creatinine 0.4 L D Creat Clearance w eGFR > 60 Random Glucose 63 L D Calcium 6.7 L* Total Bilirubin 0.4 AST 11 L ALT 13 Alkaline Phosphatase 48 Total Protein 4.4 L Albumin 1.8 L D Problem List - Problems (1) COPD (chronic obstructive pulmonary disease) Code(s): J44.9 - CHRONIC OBSTRUCTIVE PULMONARY DISEASE, UNSPECIFIED (2) Anemia Code(s): D64.9 - ANEMIA, UNSPECIFIED (3) Cellulitis of left elbow Code(s): L03.114 - CELLULITIS OF LEFT UPPER LIMB (4) Cellulitis of upper extremity Code(s): L03.119 - CELLULITIS OF UNSPECIFIED PART OF LIMB Assessment/Plan ABX per ID O2 as needed VTE prophylaxis BD TX Dr Moss
[2017-05-28] MEDS: POLYETHYLENE GLYCOL 3350 119 GM BTL PO SCH (12:46)
[2017-05-28] MEDS: BUDESONIDE/FORMETEROL FUMARATE 80/4.5 mcg INHALER IH SCH ×2 (12:46→22:03)
--- NOTE | 2017-05-28 14:16 | PN ---
Progress Note (short form) - Note Progress Note: Patient states she is feeling better. She has less arm pain. Physical examination: Vital signs and labs are all reviewed. Cultures show presumptive methicillin sensitive staph aureus. White blood cell count is down. She is found resting comfortably in bed. Her arm however is in a dependent position. The hand is lower than the elbow which is lower than the shoulder. There is less redness and tenderness along the elbow however there does appear to be fluctuance over the olecranon bursa again. There is a small amount of drainage from the wound where the elbow was aspirated. This is serosanguineous. The arm remains swollen from the fingertips to the elbow. Impression: LEFT elbow septic olecranon bursitis with reaccumulation of fluid rule out returned abscess Plan: I discussed at length with the patient the findings and treatment options. I have recommended formal incision and drainage at the bedside as well as strict elevation. She would like to proceed risks benefits alternatives were discussed. Procedure documented separately. I've also recommended strict elevation and I have after the incision and drainage placed into a stockinette and held her arm up on an IV pole so it is strictly elevated. I have instructed the nurses again to keep the arm elevated 100% of the time. Problem List - Problems (1) Bursitis due to bacterial infection Code(s): M71.10 - OTHER INFECTIVE BURSITIS, UNSPECIFIED SITE; B96.89 - OTH BACTERIAL AGENTS THE CAUSE OF DISEASES CLASSD [facility]
--- NOTE | 2017-05-28 14:19 | PROC ---
Arthrocentesis - Arthrocentesis Indication: Septic Joint Arthrocentesis Site: left: elbow (Incision and drainage LEFT olecranon bursa) Skin prep: Betadine Drainage, Color/Appearance: Purulent Tube Drainage(ml): 20 Sterile Dressing Applied: Yes Remarks: Procedure: Incision and drainage LEFT olecranon bursa: After discussion of the risks benefits alternatives, the LEFT upper shoulder sterilely prepped and draped. A sterile scalpel was then used to incise the olecranon bursa. Approximate 20 cc of pus was drained. This was then sterilely dressed. The patient tolerated procedure well. The arm was elevated and a stockinette.
--- NOTE | 2017-05-28 14:58 | PN ---
Progress Note, Physician History of Present Illness: C/O L UE pain Temps down- afebrile WBC improving Wound c/s presumptive MSSA BC no growth - Current Medication List Current Medications: Active Medications Acetaminophen (Tylenol -) 650 mg PO QID PRN PRN Reason: PAIN Last Admin: 05/27/17 04:41 Dose: 650 mg Albuterol Sulfate (Ventolin Hfa Inhaler -) 1 - 2 puff IH QID PRN PRN Reason: SHORT OF BREATH/WHEEZING Alprazolam (Xanax -) 0.25 mg PO Q8H PRN PRN Reason: ANXIETY Last Admin: 05/27/17 22:42 Dose: 0.25 mg Atorvastatin Calcium (Lipitor -) 10 mg PO HS [facility] Last Admin: 05/27/17 22:42 Dose: 10 mg Budesonide/Formoterol Fumarate (Symbicort 80/4.5mcg -) 2 puff IH BID [facility] Last Admin: 05/28/17 12:46 Dose: 2 puff Diltiazem HCl (Cardizem Cd -) 240 mg PO DAILY@1200 [facility] Last Admin: 05/28/17 11:15 Dose: 240 mg Docusate Sodium (Colace -) 200 mg PO DAILY@1200 [facility] Last Admin: 05/28/17 11:14 Dose: 200 mg Donepezil HCl (Aricept -) 10 mg PO DAILY@1200 [facility] Last Admin: 05/28/17 11:14 Dose: 10 mg Enoxaparin Sodium (Lovenox -) 40 mg SQ BID@0600,1800 [facility] Last Admin: 05/28/17 06:55 Dose: 40 mg Escitalopram Oxalate (Lexapro -) 10 mg PO DAILY@1200 [facility] Last Admin: 05/28/17 11:14 Dose: 10 mg Ferrous Sulfate (Feosol -) 325 mg PO DAILY [facility] Last Admin: 05/28/17 11:15 Dose: 325 mg Gabapentin (Neurontin -) 300 mg PO BID@1200,2200 [facility] Last Admin: 05/28/17 11:14 Dose: 300 mg Meropenem (Merrem (Restricted To Id) -) 1 gm in 20 mls @ 240 mls/hr IVPUSH Q8H- IV [facility] PRN Reason: Protocol Last Admin: 05/28/17 12:45 Dose: 240 mls/hr Vancomycin HCl 1,500 mg/ (Dextrose) 500 mls @ 166.667 mls/hr IVPB BID [facility] PRN Reason: Protocol Last Admin: 05/28/17 11:03 Dose: 166.667 mls/hr Sodium Chloride (Normal Saline -) 1,000 mls @ 75 mls/hr IV ASDIR [facility] Last Admin: 05/28/17 08:00 Dose: 75 mls/hr Levothyroxine Sodium (Synthroid -) 75 mcg PO DAILY@0700 [facility] Last Admin: 05/28/17 06:55 Dose: 75 mcg Loratadine (Claritin -) 10 mg PO DAILY [facility] Last Admin: 05/28/17 11:14 Dose: 10 mg Memantine (Namenda -) 10 mg PO BID [facility] Last Admin: 05/28/17 11:16 Dose: 10 mg Oxybutynin Chloride (Ditropan -) 5 mg PO DAILY@1200 [facility] Last Admin: 05/28/17 11:15 Dose: 5 mg Polyethylene Glycol (Miralax (For Daily Use) -) 17 gm PO DAILY@1200 [facility] Last Admin: 05/28/17 12:46 Dose: 17 gm Prednisone (Deltasone -) 15 mg PO DAILY [facility] Last Admin: 05/28/17 11:13 Dose: 15 mg Senna (Senna -) 2 tab PO HS [facility] Last Admin: 05/27/17 22:42 Dose: 2 tab Tiotropium [place] (Spiriva -) 1 puff IH DAILY [facility] Last Admin: 05/28/17 11:16 Dose: 1 puff - Objective Vital Signs: Vital Signs Temperature 99.1 F 05/28/17 13:49 Pulse Rate 100 H 05/28/17 13:49 Respiratory Rate 20 05/28/17 13:49 Blood Pressure 139/82 05/28/17 13:49 O2 Sat by Pulse Oximetry (%) 95 05/28/17 09:00 Constitutional: Yes: No Distress Cardiovascular: Yes: Regular Rate and Rhythm, S1, S2 Respiratory: Yes: CTA Bilaterally Gastrointestinal: Yes: Normal Bowel Sounds, Soft. No: Tenderness Extremities: Yes: Other (+ L UE edema + erythema/ warmth over L olecrannon process) Labs: CBC, BMP 05/28/17 06:10 05/28/17 06:10 INR, PTT INR 0.99 (0.82-1.09) 05/28/17 06:10 Assessment/Plan Septic L olecrannon bursitis, presumed MSSA Fever/ lekuocytosis Await final c/s result Substitute cefazolin 2gm IVPB q8h Elevation
--- NOTE | 2017-05-28 15:04 | PN ---
Teaching Attending Note Name of Resident: . Time of evaluation: 9:55 AM SUBJECTIVE: patient seen and examined, left forearm/ elbow pain overall unchanged. No dyspnea, or new complaints. OBJECTIVE: Vital Signs Period Temp Pulse Resp BP Sys/Bahena Pulse Ox Last 24 Hr 98 F-100.2 F 97-111 18-22 98-160/46-85 94-95 Intake & Output 05/25/17 05/26/17 05/27/17 05/28/17 23:59 23:59 23:59 23:59 Intake Total 600 1200 2220 600 Balance 600 1200 2220 600 Weight 152 lb General: sleeping comfortably in bed CVS;S1S2 regular Chest: decreased effort, no rales or wheezing extremities: LUE with some improvement in erythema, but worsening swelling now extending to dorsum of left hand, positive pulses, positive fluctuation over the elbow area Home Medication List Medication Instructions Recorded Confirmed Type Aa/Hydrolyzed Collagen, Whey [Lps 30 ml PO DAILY 01/12/17 05/25/17 History 15-30 Liquid] Acetaminophen [Tylenol] 650 mg PO QID PRN 01/12/17 05/25/17 History Albuterol Sulfate [Proventil HFA 1 - 2 inh PO QID PRN 01/12/17 05/25/17 History Inhaler -] Alprazolam [Xanax] 0.25 mg PO TID 01/12/17 05/25/17 History Aspirin [Children's Aspirin] 81 mg PO DAILY 01/12/17 05/25/17 History Atorvastatin Ca [Lipitor] 10 mg PO HS 01/12/17 05/25/17 History Calcium Carbonate/Vitamin D3 1 each PO BID@1200,2200 01/12/17 05/25/17 History [Oyster Shell 500-Vit D3 200 Tb] Diltiazem Cd [Cardizem Cd -] 240 mg PO DAILY@1200 01/12/17 05/25/17 History Docusate Sodium 200 mg PO DAILY@1200 01/12/17 05/25/17 History Donepezil HCl [Aricept] 10 mg PO DAILY@1200 01/12/17 05/25/17 History Escitalopram Oxalate [Lexapro -] 10 mg PO DAILY@1200 01/12/17 05/25/17 History Gabapentin 300 mg PO BID@1200,2200 01/12/17 05/25/17 History Levothyroxine [Synthroid -] 75 mcg PO DAILY@1200 01/12/17 05/25/17 History Loratadine [Allergy] 10 mg PO DAILY 01/12/17 05/25/17 History Memantine HCl [Namenda -] 10 mg PO BID 01/12/17 05/25/17 History Multivitamin with Iron [Daily Mabel 1 each PO DAILY 01/12/17 05/25/17 History with Iron] Mycophenolate Mofetil [Cellcept] 500 mg PO DAILY 01/12/17 05/25/17 History Olopatadine HCl [Pataday] 1 ml OU DAILY 01/12/17 05/25/17 History Oxybutynin Chloride [Oxybutynin 5 mg PO DAILY@1200 01/12/17 05/25/17 History Chloride ER] Polyethylene Glycol 3350 [Miralax 17 gm PO DAILY@1200 01/12/17 05/25/17 History 119 gm Btl -] Sennosides [Senna] 17.2 mg PO HS 01/12/17 05/25/17 History Tiotropium [place] [Spiriva] 18 mcg IH DAILY 03/16/17 05/25/17 History Active Medications Generic Name Dose Route Start Last Admin Trade Name Freq PRN Reason Stop Dose Admin Acetaminophen 650 mg 05/25/17 14:19 05/27/17 04:41 Tylenol - PO 650 mg QID PRN Administration PAIN Albuterol Sulfate 1 - 2 puff 05/25/17 14:19 Ventolin Hfa Inhaler - IH QID PRN SHORT OF BREATH/WHEEZING Alprazolam 0.25 mg 05/25/17 14:19 05/27/17 22:42 Xanax - PO 0.25 mg Q8H PRN Administration ANXIETY Atorvastatin Calcium 10 mg 05/25/17 22:00 05/27/17 22:42 Lipitor - PO 10 mg HS BEVERLY Administration Budesonide/Formoterol Fumarate 2 puff 05/25/17 22:00 05/28/17 12:46 Symbicort 80/4.5mcg - IH 2 puff BID BEVERLY Administration Diltiazem HCl 240 mg 05/26/17 02:42 05/28/17 11:15 Cardizem Cd - PO 240 mg DAILY@1200 B[facility] Administration Docusate Sodium 200 mg 05/26/17 12:00 05/28/17 11:14 Colace - PO 200 mg DAILY@1200 B[facility]LY Administration Donepezil HCl 10 mg 05/26/17 12:00 05/28/17 11:14 Aricept - PO 10 mg DAILY@1200 B[facility]LY Administration Enoxaparin Sodium 40 mg 05/26/17 18:00 05/28/17 06:55 Lovenox - SQ 40 mg BID@0600,1800 B[facility]LY Administration Escitalopram Oxalate 10 mg 05/26/17 12:00 05/28/17 11:14 Lexapro - PO 10 mg DAILY@1200 B[facility]LY Administration Ferrous Sulfate 325 mg 05/27/17 10:00 05/28/17 11:15 Feosol - PO 325 mg DAILY BEVERLY Administration Gabapentin 300 mg 05/25/17 22:00 05/28/17 11:14 Neurontin - PO 300 mg BID@1200,2200 B[facility] Administration Sodium Chloride 1,000 mls @ 75 mls/hr 05/28/17 08:01 05/28/17 08:00 Normal Saline - IV 75 mls/hr ASDIR B[facility] Administration Cefazolin Sodium 2 gm/ 50 mls @ 200 mls/hr 05/28/17 18:00 Dextrose IVPB Q8H-IV BEVERLY Levothyroxine Sodium 75 mcg 05/26/17 07:00 05/28/17 06:55 Synthroid - PO 75 mcg DAILY@0700 B[facility] Administration Loratadine 10 mg 05/26/17 12:00 05/28/17 11:14 Claritin - PO 10 mg DAILY B[facility] Administration Memantine 10 mg 05/25/17 22:00 05/28/17 11:16 Namenda - PO 10 mg BID BVEERLY Administration Oxybutynin Chloride 5 mg 05/26/17 12:00 05/28/17 11:15 Ditropan - PO 5 mg DAILY@1200 B[facility] Administration Polyethylene Glycol 17 gm 05/26/17 12:00 05/28/17 12:46 Miralax (For Daily Use) - PO 17 gm DAILY@1200 B[facility] Administration Prednisone 15 mg 05/26/17 10:00 05/28/17 11:13 Deltasone - PO 15 mg DAILY [facility] Administration Senna 2 tab 05/25/17 22:00 05/27/17 22:42 Senna - PO 2 tab HS B[facility]LY Administration Tiotropium [place] 1 puff 05/26/17 10:00 05/28/17 11:16 Spiriva - IH 1 puff DAILY B[facility] Administration Microbiology 05/25/17 12:10 Blood - Peripheral Venous Blood Culture - Preliminary NO GROWTH OBTAINED AFTER 72 HOURS, INCUBATION TO CONTINUE FOR 2 DAYS. 05/25/17 12:10 Blood - Peripheral Venous Blood Culture - Preliminary NO GROWTH OBTAINED AFTER 72 HOURS, INCUBATION TO CONTINUE FOR 2 DAYS. 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 Nugent), Recent admission to [facility] for fall/PNA when found with right superficial femoral vein DVT on xarelto, hypothyroidism admitted with sepsis, left forearm/ elbow swelling in the setting recent fall with LUE cut/trauma. 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 Continue to monitor ANtibiotics changed to cefazolin as fluid cultures with MSSA. Monitor closely for now. LUE with basilic vein DVT, patient currently on xarelto for recent superficial femoral vein DVT which is persistent on repeat imaging this admission. Xarelto on hold pending orthopedic intervention, resume in 24-4 hours if clinically improved and no new intervention needed. Continue cardizem. Hold cellcept. Continue prednisone. Stress dose steroids as indicated. Continue levothyroxine. Code status: full for now. DVTPPX, heparin if unable to resume xarelto in 24 hours pending orthopedic intervention. Fall/aspiration precautions. Iron panel noted, Continue oral Fe. Hb trending down, likely from hydration/ hemodilution, monitor for bleed. Followup Stool occult. GIPPx withPPI Dispo pending resolution of medical issues. Ongoing sepsis with need for broad spectum antibiotics, surgical intervention and close hemodynamic monitoring. d/c telemtry in 24 hours if clinically improves after I&D today.
[2017-05-28] MEDS ORDERED: CALCIUM GLUCONATE 10% - 1,000 MG/10 ML VIAL IVPB ONE (15:09)
[2017-05-28] MEDS ORDERED: POTASSIUM CHLORIDE TABS 20 MEQ TABLET.ER (FP) PO ONE (15:09)
[2017-05-28] MEDS: CEFAZOLIN 2 GM in DEXTROSE 5%-WATER - 100 ML IVPB SCH (17:58)
[2017-05-28] MEDS: ALPRAZolam 0.25 MG TABLET PO PRN (22:06)
[2017-05-28] MEDS: ATORVASTATIN CA 10 MG TABLET (FP) PO SCH (22:06)
[2017-05-28] MEDS: SENNOSIDES 8.6MG TABLET (FP) PO SCH (22:07)
[2017-05-29] MEDS: CEFAZOLIN 2 GM in DEXTROSE 5%-WATER - 100 ML IVPB SCH ×3 (01:44→18:00)
[2017-05-29] MEDS: ENOXAPARIN NA (PORCINE) 40 MG/0.4 ML DISP.SYRIN SQ SCH (06:58)
[2017-05-29] MEDS: LEVOTHYROXINE NA 75 MCG TABLET (FP) PO SCH (06:58)
[2017-05-29 07:46] LABS: BASOPHIL 0.5 % (0-2.0); EOSINOPHIL 0.8 % (0-4.5); MCH 26.1 pg (25.7-33.7); MCHC 30.7 g/dl (32.0-36.0); MEAN PLT VOLUME 8.7 fl (7.5-11.1); NEUTROPHILS 77.3 % (42.8-82.8); PLATELET COUNT 327 K/MM3 (134-434); WHITE BLOOD COUNT 15.2 K/mm3 (4.0-10.0)
--- NOTE | 2017-05-29 07:56 | PN ---
Physical Exam: SUBJECTIVE: Patient seen and examined. Doing well. Afebrile for 24 hours. No complaints. However, arm is more swollen. Pt intermittently elevates arm. Coached on importance of arm elevation OBJECTIVE: Vital Signs Period Temp Pulse Resp BP Sys/Bahena Pulse Ox Last 24 Hr 98 F-99.1 F 87-102 18-150 139-148/68-83 94-95 GEN: Awake, alert, not oriented to place and month, but responds to questions HEENT: PERRLA, EOMi, no cervical LAD CV: S1, S2, 2/6 systolic murmur LUNG: Decreased air entry, no crackles ABD: Soft, NT, ND MSK: Warm, swollen, indurated area lateral to L elbow. Still able to passively and actively lift L arm. 2+ pulses. +2/3 pitting edema from hand to upper arm. NEURO: Facial symmetry, MSK and sensation intact Laboratory Last Values WBC 15.2 K/mm3 (4.0-10.0) H 05/29/17 05:35 RBC 3.11 M/mm3 (3.60-5.2) L 05/29/17 05:35 Hgb 8.1 GM/dL (10.7-15.3) L 05/29/17 05:35 Hct 26.5 % (32.4-45.2) L 05/29/17 05:35 MCV 85.0 fl (80-96) 05/29/17 05:35 MCH 26.1 pg (25.7-33.7) 05/29/17 05:35 MCHC 30.7 g/dl (32.0-36.0) L 05/29/17 05:35 RDW 16.0 % (11.6-15.6) H 05/29/17 05:35 Plt Count 327 K/MM3 (134-434) 05/29/17 05:35 MPV 8.7 fl (7.5-11.1) 05/29/17 05:35 Total Counted 100 05/27/17 09:04 Neutrophils % 77.3 % (42.8-82.8) 05/29/17 05:35 Neutrophils % (Manual) 80.0 % (42.8-82.8) 05/27/17 09:04 Band Neutrophils % 9.0 % 05/27/17 09:04 Lymphocytes % 11.9 % (8-40) D 05/29/17 05:35 Lymphocytes % (Manual) 6.0 % (8-40) L 05/27/17 09:04 Monocytes % 9.5 % (3.8-10.2) 05/29/17 05:35 Monocytes % (Manual) 5 % (3.8-10.2) 05/27/17 09:04 Eosinophils % 0.8 % (0-4.5) 05/29/17 05:35 Basophils % 0.5 % (0-2.0) 05/29/17 05:35 Manual Slide Review No Result Required. 05/27/17 06:00 Platelet Estimate Adequate 05/27/17 09:04 Platelet Comment No clumping noted 05/27/17 09:04 ESR 47 mm/hr (0-30) H 05/26/17 06:00 PT with INR 11.20 SEC (9.98-11.88) 05/28/17 06:10 INR 0.99 (0.82-1.09) 05/28/17 06:10 PTT (Actin FS) 27.7 SECONDS (26.9-34.4) 05/25/17 11:54 VBG pH 7.37 (7.32-7.42) 05/25/17 11:54 POC VBG pCO2 60.9 mmHg (38-52) H* 05/25/17 11:54 POC VBG pO2 19.9 mmHg (28-48) L* D 05/25/17 11:54 Mixed VBG HCO3 34.6 meq/L (19-25) H 05/25/17 11:54 Sodium 143 mmol/L (136-145) 05/29/17 05:35 Potassium 4.0 mmol/L (3.5-5.1) D 05/29/17 05:35 Chloride 107 mmol/L (98-107) 05/29/17 05:35 Carbon Dioxide 28 mmol/L (21-32) D 05/29/17 05:35 Anion Gap 8 (8-16) 05/29/17 05:35 BUN 8 mg/dL (7-18) 05/29/17 05:35 Creatinine 0.6 mg/dL (0.55-1.02) D 05/29/17 05:35 Creat Clearance w eGFR > 60 (>60) 05/29/17 05:35 POC Glucometer 84 UNITS (80-120) 05/29/17 11:20 Random Glucose 75 mg/dL (74-106) 05/29/17 05:35 Lactic Acid 0.8 mmol/L (0.4-2.0) 05/25/17 11:54 Calcium 8.4 mg/dL (8.5-10.1) L D 05/29/17 05:35 Phosphorus 1.8 mg/dL (2.5-4.9) L D 05/29/17 05:35 Magnesium 2.1 mg/dL (1.8-2.4) 05/29/17 05:35 Iron 8 ug/dL (27-139) L 05/26/17 06:00 TIBC 248 ug/dL (250-450) L 05/26/17 06:00 Iron Saturation 3 % (15-55) L 05/26/17 06:00 Transferrin 224 mg/dL (200-370) 05/26/17 06:00 Ferritin 34.807 ng/ml (6.9-282.5) 05/26/17 06:00 Total Bilirubin 0.3 mg/dL (0.2-1.0) D 05/29/17 05:35 AST 13 U/L (15-37) L 05/29/17 05:35 ALT 17 U/L (12-78) D 05/29/17 05:35 Alkaline Phosphatase 58 U/L (45-117) D 05/29/17 05:35 Creatine Kinase 63 IU/L (26-192) 05/25/17 11:54 Troponin I < 0.02 ng/ml (0.00-0.05) 05/25/17 11:54 C-Reactive Protein 17.9 MG/DL (0.00-0.3) H 05/26/17 06:00 Total Protein 5.3 g/dl (6.4-8.2) L D 05/29/17 05:35 Albumin 2.3 g/dl (3.4-5.0) L D 05/29/17 05:35 Urine Color Dkyellow 05/26/17 06:55 Urine Appearance Slcloudy 05/26/17 06:55 Urine pH 5.0 (5.0-8.0) D 05/26/17 06:55 Ur Specific [place] 1.024 (1.001-1.035) 05/26/17 06:55 Urine Protein 1+ (NEGATIVE) H 05/26/17 06:55 Urine Glucose (UA) Negative (NEGATIVE) 05/26/17 06:55 Urine Ketones Negative (NEGATIVE) 05/26/17 06:55 Urine Blood Negative (NEGATIVE) 05/26/17 06:55 Urine Nitrite Negative (NEGATIVE) 05/26/17 06:55 Urine Bilirubin Negative (NEGATIVE) 05/26/17 06:55 Urine Urobilinogen Negative mg/dL (0.2-1.0) 05/26/17 06:55 Ur Leukocyte Esterase Negative (NEGATIVE) 05/26/17 06:55 Urine WBC (Auto) 17 /hpf (3-5) 05/26/17 06:55 Urine RBC (Auto) 2 /hpf (0-3) 05/26/17 06:55 Ur Epithelial Cells Rare /HPF (FEW) 05/26/17 06:55 Urine Mucus Moderate 05/26/17 06:55 Vancomycin Pre-Dose 6.575 ug/ml (5.0-10.0) 05/27/17 10:35 Blood Type A NEGATIVE 05/25/17 11:54 Antibody Screen Negative 05/25/17 11:54 Active Medications Generic Name Dose Route Start Last Admin Trade Name Freq PRN Reason Stop Dose Admin Acetaminophen 650 mg 05/25/17 14:19 05/27/17 04:41 Tylenol - PO 650 mg QID PRN Administration PAIN Albuterol Sulfate 1 - 2 puff 05/25/17 14:19 05/28/17 22:03 Ventolin Hfa Inhaler - IH 1 inh QID PRN Administration SHORT OF BREATH/WHEEZING Alprazolam 0.25 mg 05/25/17 14:19 05/28/17 22:06 Xanax - PO 0.25 mg Q8H PRN Administration ANXIETY Atorvastatin Calcium 10 mg 05/25/17 22:00 05/28/17 22:06 Lipitor - PO 10 mg HS BEVERLY Administration Budesonide/Formoterol Fumarate 2 puff 05/25/17 22:00 05/28/17 22:03 Symbicort 80/4.5mcg - IH 2 puff BID BEVERLY Administration Diltiazem HCl 240 mg 05/26/17 02:42 05/28/17 11:15 Cardizem Cd - PO 240 mg DAILY@1200 BEVERLY Administration Docusate Sodium 200 mg 05/26/17 12:00 05/28/17 11:14 Colace - PO 200 mg DAILY@1200 BEVERLY Administration Donepezil HCl 10 mg 05/26/17 12:00 05/28/17 11:14 Aricept - PO 10 mg DAILY@1200 BEVERLY Administration Enoxaparin Sodium 40 mg 05/26/17 18:00 05/29/17 06:58 Lovenox - SQ 40 mg BID@0600,1800 BEVERLY Administration Escitalopram Oxalate 10 mg 05/26/17 12:00 05/28/17 11:14 Lexapro - PO 10 mg DAILY@1200 BEVERLY Administration Ferrous Sulfate 325 mg 05/27/17 10:00 05/28/17 11:15 Feosol - PO 325 mg DAILY BEVERLY Administration Gabapentin 300 mg 05/25/17 22:00 05/28/17 22:06 Neurontin - PO 300 mg BID@1200,2200 B[facility] Administration Sodium Chloride 1,000 mls @ 75 mls/hr 05/28/17 08:01 05/28/17 22:08 Normal Saline - IV 75 mls/hr ASDIR B[facility]LY Administration Cefazolin Sodium 2 gm/ 100 mls @ 200 mls/hr 05/28/17 18:00 05/29/17 01:44 Dextrose IVPB 200 mls/hr Q8H-IV BEVERLY Administration Levothyroxine Sodium 75 mcg 05/26/17 07:00 05/29/17 06:58 Synthroid - PO 75 mcg DAILY@0700 B[facility] Administration Loratadine 10 mg 05/26/17 12:00 05/28/17 11:14 Claritin - PO 10 mg DAILY B[facility] Administration Memantine 10 mg 05/25/17 22:00 05/28/17 22:06 Namenda - PO 10 mg BID B[facility] Administration Oxybutynin Chloride 5 mg 05/26/17 12:00 05/28/17 11:15 Ditropan - PO 5 mg DAILY@1200 B[facility] Administration Polyethylene Glycol 17 gm 05/26/17 12:00 05/28/17 12:46 Miralax (For Daily Use) - PO 17 gm DAILY@1200 B[facility] Administration Prednisone 15 mg 05/26/17 10:00 05/28/17 11:13 Deltasone - PO 15 mg DAILY B[facility] Administration Senna 2 tab 05/25/17 22:00 05/28/17 22:07 Senna - PO Not Given HS BEVERLY Tiotropium [place] 1 puff 05/26/17 10:00 05/28/17 11:16 Spiriva - IH 1 puff DAILY BEVERLY Administration ASSESSMENT/PLAN: 87yo F with PMHx of COPD on 2L home O2 and prednisone, 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 Cultures growing +MSSA. MRI did note extension into joint. Since aspiration, pt has defervesced and WBCs are trending down. Micro is consistent with +MSSA, pt defervesced, WBC trending down. Pt now on Cefazolin 2g Q8H. Will likely dc tmrw on PO antibiotics # L brachial vein DVT - Dopplers taken due to LUE swelling. Likely provoked due to relative immobility at HI. Pt is already on Xarelto for Superficial femoral VT which was held temporarily due to Ortho intervention. Pt needs to keep arm elevated # Hx of Superficial Femoral VT - Restart Xarelto, also for L brachial DVT # Paolo Eugenie - continue Prednisone, HOLD Cellcept for now, but can restart upon d/c # Normocytic Anemia - Labs show STACEY, d/c on ferrous sulfate # Hx of CAD - continue ASA # COPD/Asthma - continue Spiriva, symbicort, duonebs PRN # Alzheimer dementia - continue Donepezil # HTN - continue Cardizem # HLD - continue Lipitor # Hypothyroidism - continue Synthroid # Overactive Bladder - continue Oxybutynin # Anxiety/Depression - continue xanax and lexapro # GERD - zantac # Constipation - continue senna, colace, and miralax # FEN/PPx - NS at 75cc/hr, low sodium diet, SCDs # Dispo - Pt doing better. Will likely be dc'd tmrw if improving. No fevers, WBC going down. d/w Dr Son Hernadez MD - PGY1 Internal Medicine Visit type - Emergency Visit Emergency Visit: No - New Patient This patient is new to me today: No - Critical Care Critical Care patient: No - Discharge Referral Referred to [facility] Med [facility] No
--- NOTE | 2017-05-29 08:18 | PN ---
Progress Note, Physician History of Present Illness: She is feeling a little better today. She is not elevating the arm. No new complaints. - Current Medication List Current Medications: Active Medications Acetaminophen (Tylenol -) 650 mg PO QID PRN PRN Reason: PAIN Last Admin: 05/27/17 04:41 Dose: 650 mg Albuterol Sulfate (Ventolin Hfa Inhaler -) 1 - 2 puff IH QID PRN PRN Reason: SHORT OF BREATH/WHEEZING Last Admin: 05/28/17 22:03 Dose: 1 inh Alprazolam (Xanax -) 0.25 mg PO Q8H PRN PRN Reason: ANXIETY Last Admin: 05/28/17 22:06 Dose: 0.25 mg Atorvastatin Calcium (Lipitor -) 10 mg PO HS [facility] Last Admin: 05/28/17 22:06 Dose: 10 mg Budesonide/Formoterol Fumarate (Symbicort 80/4.5mcg -) 2 puff IH BID [facility] Last Admin: 05/28/17 22:03 Dose: 2 puff Diltiazem HCl (Cardizem Cd -) 240 mg PO DAILY@1200 [facility] Last Admin: 05/28/17 11:15 Dose: 240 mg Docusate Sodium (Colace -) 200 mg PO DAILY@1200 [facility] Last Admin: 05/28/17 11:14 Dose: 200 mg Donepezil HCl (Aricept -) 10 mg PO DAILY@1200 [facility] Last Admin: 05/28/17 11:14 Dose: 10 mg Enoxaparin Sodium (Lovenox -) 40 mg SQ BID@0600,1800 [facility] Last Admin: 05/29/17 06:58 Dose: 40 mg Escitalopram Oxalate (Lexapro -) 10 mg PO DAILY@1200 [facility] Last Admin: 05/28/17 11:14 Dose: 10 mg Ferrous Sulfate (Feosol -) 325 mg PO DAILY [facility] Last Admin: 05/28/17 11:15 Dose: 325 mg Gabapentin (Neurontin -) 300 mg PO BID@1200,2200 [facility] Last Admin: 05/28/17 22:06 Dose: 300 mg Sodium Chloride (Normal Saline -) 1,000 mls @ 75 mls/hr IV ASDIR [facility] Last Admin: 05/28/17 22:08 Dose: 75 mls/hr Cefazolin Sodium 2 gm/ (Dextrose) 100 mls @ 200 mls/hr IVPB Q8H-IV [facility] Last Admin: 05/29/17 01:44 Dose: 200 mls/hr Levothyroxine Sodium (Synthroid -) 75 mcg PO DAILY@0700 [facility] Last Admin: 05/29/17 06:58 Dose: 75 mcg Loratadine (Claritin -) 10 mg PO DAILY [facility] Last Admin: 05/28/17 11:14 Dose: 10 mg Memantine (Namenda -) 10 mg PO BID [facility] Last Admin: 05/28/17 22:06 Dose: 10 mg Oxybutynin Chloride (Ditropan -) 5 mg PO DAILY@1200 [facility] Last Admin: 05/28/17 11:15 Dose: 5 mg Polyethylene Glycol (Miralax (For Daily Use) -) 17 gm PO DAILY@1200 [facility] Last Admin: 05/28/17 12:46 Dose: 17 gm Prednisone (Deltasone -) 15 mg PO DAILY [facility] Last Admin: 05/28/17 11:13 Dose: 15 mg Senna (Senna -) 2 tab PO HS [facility] Last Admin: 05/28/17 22:07 Dose: Not Given Tiotropium [place] (Spiriva -) 1 puff IH DAILY [facility] Last Admin: 05/28/17 11:16 Dose: 1 puff - Objective Vital Signs: Vital Signs Temperature 98.2 F 05/29/17 02:00 Pulse Rate 100 H 05/29/17 02:00 Respiratory Rate 18 05/29/17 02:00 Blood Pressure 148/76 05/29/17 02:00 O2 Sat by Pulse Oximetry (%) 94 L 05/28/17 21:00 Constitutional: Yes: Well Nourished, No Distress, Calm HENT: Yes: Atraumatic, Normocephalic Extremities: Yes: Other (Left upper extremity: Moderate edema of the LUE. Mild erythema surrouding the olecranon bursitis. Mild tenderness over the olecraron bursa. No fluctuance. About 3 cc of serosanguous fluid was expressed from the bursa. No pus. Near full ROM of the elbow. NVID.) Labs: CBC, BMP 05/29/17 05:35 INR, PTT INR 0.99 (0.82-1.09) 05/28/17 06:10 Assessment/Plan #1 Septic olecranon bursitis, left arm -I placed the arm on 2 pillows and the arm is adequately elevated while she lies in a reclined position. -New dressing placed -Continue ABX, awaiting final results -WBC trending down
[2017-05-29 08:35] LABS: ALBUMIN 2.3 g/dl (3.4-5.0); ALK PHOS 58 U/L (45-117); ANION GAP 8 (8-16); BILIRUBIN,TOTAL 0.3 mg/dL (0.2-1.0); CALCIUM 8.4 mg/dL (8.5-10.1); CO2 28 mmol/L (21-32); CREATININE 0.6 mg/dL (0.55-1.02); GLUCOSE,RANDOM 75 mg/dL (74-106); MAGNESIUM 2.1 mg/dL (1.8-2.4); PHOSPHOROUS 1.8 mg/dL (2.5-4.9); SGOT/AST 13 U/L (15-37); SGPT/ALT 17 U/L (12-78); TOT PROT 5.3 g/dl (6.4-8.2)
[2017-05-29] MEDS: SODIUM CHLORIDE 1,000 ML IV SCH ×2 (09:00→18:57)
[2017-05-29] MEDS: MEMANTINE HCL 10 MG TABLET (FP) PO SCH ×2 (11:18→21:25)
[2017-05-29] MEDS: DOCUSATE SODIUM 100 MG CAPSULE (FP) PO SCH (11:18)
[2017-05-29] MEDS: FERROUS SO4 325 MG TABLET (FP) PO SCH (11:19)
[2017-05-29] MEDS: DONEPEZIL HCL 10 MG TABLET (FP) PO SCH (11:19)
[2017-05-29] MEDS: OXYBUTYNIN CHLORIDE 5 MG TABLET PO SCH (11:19)
[2017-05-29] MEDS: ESCITALOPRAM OXALATE 10 MG TABLET (FP) PO SCH (11:19)
[2017-05-29] MEDS: LORATADINE 10 MG TABLET PO SCH (11:20)
[2017-05-29] MEDS: predniSONE 5 MG TABLET (UD) PO SCH (11:20)
[2017-05-29] MEDS: GABAPENTIN 300 MG CAPSULE (FP) PO SCH ×2 (11:20→21:25)
[2017-05-29] MEDS: BUDESONIDE/FORMETEROL FUMARATE 80/4.5 mcg INHALER IH SCH ×2 (11:21→22:12)
[2017-05-29] MEDS: TIOTROPIUM BROMIDE 18 MCG/INH (DEVICE W/ 5 CAPSULES) IH SCH (11:22)
--- NOTE | 2017-05-29 12:10 | PN ---
Progress Note, Physician History of Present Illness: pulmonary alert,nad,-sob - Current Medication List Current Medications: Active Medications Acetaminophen (Tylenol -) 650 mg PO QID PRN PRN Reason: PAIN Last Admin: 05/27/17 04:41 Dose: 650 mg Albuterol Sulfate (Ventolin Hfa Inhaler -) 1 - 2 puff IH QID PRN PRN Reason: SHORT OF BREATH/WHEEZING Last Admin: 05/28/17 22:03 Dose: 1 inh Alprazolam (Xanax -) 0.25 mg PO Q8H PRN PRN Reason: ANXIETY Last Admin: 05/28/17 22:06 Dose: 0.25 mg Atorvastatin Calcium (Lipitor -) 10 mg PO HS [facility] Last Admin: 05/28/17 22:06 Dose: 10 mg Budesonide/Formoterol Fumarate (Symbicort 80/4.5mcg -) 2 puff IH BID [facility] Last Admin: 05/29/17 11:21 Dose: 2 puff Diltiazem HCl (Cardizem Cd -) 240 mg PO DAILY@1200 [facility] Last Admin: 05/29/17 11:19 Dose: 240 mg Docusate Sodium (Colace -) 200 mg PO DAILY@1200 [facility] Last Admin: 05/29/17 11:18 Dose: 200 mg Donepezil HCl (Aricept -) 10 mg PO DAILY@1200 [facility] Last Admin: 05/29/17 11:19 Dose: 10 mg Enoxaparin Sodium (Lovenox -) 40 mg SQ BID@0600,1800 [facility] Last Admin: 05/29/17 06:58 Dose: 40 mg Escitalopram Oxalate (Lexapro -) 10 mg PO DAILY@1200 [facility] Last Admin: 05/29/17 11:19 Dose: 10 mg Ferrous Sulfate (Feosol -) 325 mg PO DAILY [facility] Last Admin: 05/29/17 11:19 Dose: 325 mg Gabapentin (Neurontin -) 300 mg PO BID@1200,2200 [facility] Last Admin: 05/29/17 11:20 Dose: 300 mg Sodium Chloride (Normal Saline -) 1,000 mls @ 75 mls/hr IV ASDIR [facility] Last Admin: 05/29/17 09:00 Dose: Not Given Cefazolin Sodium 2 gm/ (Dextrose) 100 mls @ 200 mls/hr IVPB Q8H-IV [facility] Last Admin: 05/29/17 11:23 Dose: 200 mls/hr Levothyroxine Sodium (Synthroid -) 75 mcg PO DAILY@0700 [facility] Last Admin: 05/29/17 06:58 Dose: 75 mcg Loratadine (Claritin -) 10 mg PO DAILY [facility] Last Admin: 05/29/17 11:20 Dose: 10 mg Memantine (Namenda -) 10 mg PO BID [facility] Last Admin: 05/29/17 11:18 Dose: 10 mg Oxybutynin Chloride (Ditropan -) 5 mg PO DAILY@1200 [facility] Last Admin: 05/29/17 11:19 Dose: 5 mg Polyethylene Glycol (Miralax (For Daily Use) -) 17 gm PO DAILY@1200 [facility] Last Admin: 05/28/17 12:46 Dose: 17 gm Prednisone (Deltasone -) 15 mg PO DAILY [facility] Last Admin: 05/29/17 11:20 Dose: 15 mg Senna (Senna -) 2 tab PO HS [facility] Last Admin: 05/28/17 22:07 Dose: Not Given Tiotropium [place] (Spiriva -) 1 puff IH DAILY [facility] Last Admin: 05/29/17 11:22 Dose: 1 puff - Objective Vital Signs: Vital Signs Temperature 98 F 05/29/17 07:00 Pulse Rate 95 H 05/29/17 07:00 Respiratory Rate 20 05/29/17 07:00 Blood Pressure 163/89 05/29/17 07:00 O2 Sat by Pulse Oximetry (%) 94 L 05/28/17 21:00 Constitutional: Yes: Well Nourished, Calm Eyes: Yes: WNL HENT: Yes: WNL Neck: Yes: WNL Cardiovascular: Yes: Regular Rate and Rhythm, S1, S2 Respiratory: Yes: Diminished Gastrointestinal: Yes: Normal Bowel Sounds, Soft Extremities: Yes: Erythema Edema: Yes (swelling and erythema lue) Labs: CBC, BMP 05/29/17 05:35 05/29/17 05:35 INR, PTT INR 0.99 (0.82-1.09) 05/28/17 06:10 Assessment/Plan Problem List - Problems (1) COPD (chronic obstructive pulmonary disease) Code(s): J44.9 - CHRONIC OBSTRUCTIVE PULMONARY DISEASE, UNSPECIFIED (2) Anemia Code(s): D64.9 - ANEMIA, UNSPECIFIED (3) Cellulitis of left elbow Code(s): L03.114 - CELLULITIS OF LEFT UPPER LIMB (4) Cellulitis of upper extremity Code(s): L03.119 - CELLULITIS OF UNSPECIFIED PART OF LIMB Assessment/Plan ABX per ID O2 as needed VTE prophylaxis BD TX DR HORN
[2017-05-29] MEDS: POLYETHYLENE GLYCOL 3350 119 GM BTL PO SCH (12:48)
--- NOTE | 2017-05-29 14:00 | PN ---
Teaching Attending Note Name of Resident: Harini Hernadez ATTENDING PHYSICIAN STATEMENT Time of evaluation: 10:30 Am I saw and evaluated the patient. I reviewed the resident's note and discussed the case with the resident. I agree with the resident's findings and plan as documented. SUBJECTIVE: Patient seen and examined. left forearm/elbow symptoms improved, no new complaints, PLeasant and interactive. OBJECTIVE: Vital Signs Period Temp Pulse Resp BP Sys/Bahena Pulse Ox Last 24 Hr 98 F-99.1 F 87-100 18-150 141-163/68-89 94-95 Intake & Output 05/26/17 05/27/17 05/28/17 05/29/17 23:59 23:59 23:59 23:59 Intake Total 1200 2220 1945 1060 Balance 1200 2220 1945 1060 General: sitting in bed in no acute distress CVS:S1s2 regular Chest: no rales or wheezing Abdomen: soft, obese, NT extremities: Left forearm/ebow swelling and erythema markedly improved, left hand swelling almost resolved, Small incision over left elbow area, unable to express fluid, ROM improved, well perfused. Home Medication List Medication Instructions Recorded Confirmed Type Aa/Hydrolyzed Collagen, Whey [Lps 30 ml PO DAILY 01/12/17 05/25/17 History 15-30 Liquid] Acetaminophen [Tylenol] 650 mg PO QID PRN 01/12/17 05/25/17 History Albuterol Sulfate [Proventil HFA 1 - 2 inh PO QID PRN 01/12/17 05/25/17 History Inhaler -] Alprazolam [Xanax] 0.25 mg PO TID 01/12/17 05/25/17 History Aspirin [Children's Aspirin] 81 mg PO DAILY 01/12/17 05/25/17 History Atorvastatin Ca [Lipitor] 10 mg PO HS 01/12/17 05/25/17 History Calcium Carbonate/Vitamin D3 1 each PO BID@1200,2200 01/12/17 05/25/17 History [Oyster Shell 500-Vit D3 200 Tb] Diltiazem Cd [Cardizem Cd -] 240 mg PO DAILY@1200 01/12/17 05/25/17 History Docusate Sodium 200 mg PO DAILY@1200 01/12/17 05/25/17 History Donepezil HCl [Aricept] 10 mg PO DAILY@1200 01/12/17 05/25/17 History Escitalopram Oxalate [Lexapro -] 10 mg PO DAILY@1200 01/12/17 05/25/17 History Gabapentin 300 mg PO BID@1200,2200 01/12/17 05/25/17 History Levothyroxine [Synthroid -] 75 mcg PO DAILY@1200 01/12/17 05/25/17 History Loratadine [Allergy] 10 mg PO DAILY 01/12/17 05/25/17 History Memantine HCl [Namenda -] 10 mg PO BID 01/12/17 05/25/17 History Multivitamin with Iron [Daily Mabel 1 each PO DAILY 01/12/17 05/25/17 History with Iron] Mycophenolate Mofetil [Cellcept] 500 mg PO DAILY 01/12/17 05/25/17 History Olopatadine HCl [Pataday] 1 ml OU DAILY 01/12/17 05/25/17 History Oxybutynin Chloride [Oxybutynin 5 mg PO DAILY@1200 01/12/17 05/25/17 History Chloride ER] Polyethylene Glycol 3350 [Miralax 17 gm PO DAILY@1200 01/12/17 05/25/17 History 119 gm Btl -] Sennosides [Senna] 17.2 mg PO HS 01/12/17 05/25/17 History Tiotropium [place] [Spiriva] 18 mcg IH DAILY 03/16/17 05/25/17 History Active Medications Generic Name Dose Route Start Last Admin Trade Name Camila PRN Reason Stop Dose Admin Acetaminophen 650 mg 05/25/17 14:19 05/27/17 04:41 Tylenol - PO 650 mg QID PRN Administration PAIN Albuterol Sulfate 1 - 2 puff 05/25/17 14:19 05/28/17 22:03 Ventolin Hfa Inhaler - IH 1 inh QID PRN Administration SHORT OF BREATH/WHEEZING Alprazolam 0.25 mg 05/25/17 14:19 05/28/17 22:06 Xanax - PO 0.25 mg Q8H PRN Administration ANXIETY Atorvastatin Calcium 10 mg 05/25/17 22:00 05/28/17 22:06 Lipitor - PO 10 mg HS [facility] Administration Budesonide/Formoterol Fumarate 2 puff 05/25/17 22:00 05/29/17 11:21 Symbicort 80/4.5mcg - IH 2 puff BID [facility] Administration Diltiazem HCl 240 mg 05/26/17 02:42 05/29/17 11:19 Cardizem Cd - PO 240 mg DAILY@1200 [facility] Administration Docusate Sodium 200 mg 05/26/17 12:00 05/29/17 11:18 Colace - PO 200 mg DAILY@1200 [facility] Administration Donepezil HCl 10 mg 05/26/17 12:00 05/29/17 11:19 Aricept - PO 10 mg DAILY@1200 [facility] Administration Enoxaparin Sodium 40 mg 05/26/17 18:00 05/29/17 06:58 Lovenox - SQ 40 mg BID@0600,1800 [facility] Administration Escitalopram Oxalate 10 mg 05/26/17 12:00 05/29/17 11:19 Lexapro - PO 10 mg DAILY@1200 [facility] Administration Ferrous Sulfate 325 mg 05/27/17 10:00 05/29/17 11:19 Feosol - PO 325 mg DAILY [facility] Administration Gabapentin 300 mg 05/25/17 22:00 05/29/17 11:20 Neurontin - PO 300 mg BID@1200,2200 [facility] Administration Sodium Chloride 1,000 mls @ 75 mls/hr 05/28/17 08:01 05/29/17 09:00 Normal Saline - IV Not Given ASDIR [facility] Cefazolin Sodium 2 gm/ 100 mls @ 200 mls/hr 05/28/17 18:00 05/29/17 11:23 Dextrose IVPB 200 mls/hr Q8H-IV [facility] Administration Levothyroxine Sodium 75 mcg 05/26/17 07:00 05/29/17 06:58 Synthroid - PO 75 mcg DAILY@0700 [facility] Administration Loratadine 10 mg 05/26/17 12:00 05/29/17 11:20 Claritin - PO 10 mg DAILY [facility] Administration Memantine 10 mg 05/25/17 22:00 05/29/17 11:18 Namenda - PO 10 mg BID [facility] Administration Oxybutynin Chloride 5 mg 05/26/17 12:00 05/29/17 11:19 Ditropan - PO 5 mg DAILY@1200 [facility] Administration Polyethylene Glycol 17 gm 05/26/17 12:00 05/29/17 12:48 Miralax (For Daily Use) - PO Not Given DAILY@1200 [facility] Prednisone 15 mg 05/26/17 10:00 05/29/17 11:20 Deltasone - PO 15 mg DAILY [facility] Administration Rivaroxaban 20 mg 05/29/17 15:15 Xarelto - PO DAILY [facility] Senna 2 tab 05/25/17 22:00 05/28/17 22:07 Senna - PO Not Given HS [facility] Tiotropium [place] 1 puff 05/26/17 10:00 05/29/17 11:22 Spiriva - IH 1 puff DAILY [facility] Administration Microbiology 05/26/17 14:05 Synovial Fluid - Elbow Gram Stain - Final 05/26/17 14:05 Synovial Fluid - Elbow Body Fluid Culture - Final Staphylococcus Aureus 05/26/17 14:05 Synovial Fluid - Elbow Anaerobic Culture - Final NO ANAEROBES WERE ISOLATED 05/25/17 12:10 Blood - Peripheral Venous Blood Culture - Preliminary NO GROWTH OBTAINED AFTER 96 HOURS, INCUBATION TO CONTINUE FOR 1 DAYS. 05/25/17 12:10 Blood - Peripheral Venous Blood Culture - Preliminary NO GROWTH OBTAINED AFTER 96 HOURS, INCUBATION TO CONTINUE FOR 1 DAYS. 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 Nugent), Recent admission to [facility] for fall/PNA when found with right superficial femoral vein DVT on xarelto, hypothyroidism admitted with sepsis, left forearm/ elbow swelling in the setting recent fall with LUE cut/trauma. 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 Markedly improved today. Wound dressing. Cultures with MSSA. ANtibiotics changed to cefazolin day 2 today. LUE with basilic vein DVT, Patient currently on xarelto for recent superficial femoral vein DVT which is persistent on repeat imaging this admission. Discuss with orthopedic to resume xarelto today. Continue cardizem. Hold cellcept. Continue prednisone. Stress dose steroids as indicated. Continue levothyroxine. replete K/Phos/Ca prn. Code status: full for now. DVTPPX, resume xarelto if OK with orthopedic Fall/aspiration precautions. Iron panel noted, Continue oral Fe. Hb trending down, likely from hydration/ hemodilution, monitor for bleed. Followup Stool occult. Stabilized now. GIPPx withPPI Dispo Improving clinically. D/c telemetry, PT eval, d/c in 24 hours if continues to improve, no new events and disposition arranged.
[2017-05-29] MEDS ORDERED: RIVAROXABAN 20 MG TABLET PO SCH ×2 (15:15→15:45)
--- NOTE | 2017-05-29 15:36 | PN ---
Progress Note (short form) - Note Progress Note: arm improving reports less discomfort Vital Signs Period Temp Pulse Resp BP Sys/Bahena Pulse Ox Last 24 Hr 98 F-99.1 F 87-100 18-150 135-163/68-89 94-95 cor-rrr lungs clear abd soft,nt ext less swelling of left arm, better ROM of elbow, still erythema and warmth left inner arm CBC, BMP 05/29/17 05:35 05/29/17 05:35 Microbiology 05/26/17 14:05 Synovial Fluid - Elbow Gram Stain - Final 05/26/17 14:05 Synovial Fluid - Elbow Body Fluid Culture - Final Staphylococcus Aureus 05/26/17 14:05 Synovial Fluid - Elbow Anaerobic Culture - Final NO ANAEROBES WERE ISOLATED 05/25/17 12:10 Blood - Peripheral Venous Blood Culture - Preliminary NO GROWTH OBTAINED AFTER 96 HOURS, INCUBATION TO CONTINUE FOR 1 DAYS. 05/25/17 12:10 Blood - Peripheral Venous Blood Culture - Preliminary NO GROWTH OBTAINED AFTER 96 HOURS, INCUBATION TO CONTINUE FOR 1 DAYS. 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
[2017-05-29] MEDS ORDERED: PT OWN MED DRAWER 7, Y5N ONE ×2 (16:50→17:31)
[2017-05-29] MEDS: RIVAROXABAN 20 MG TABLET PO SCH (17:28)
[2017-05-29] MEDS ORDERED: ACETAMINOPHEN 325 MG TABLET (FP) PO PRN (18:34)
[2017-05-29] MEDS ORDERED: ALBUTEROL SO4 18 GM HFA INHALER IH PRN (18:34)
[2017-05-29] MEDS: SENNOSIDES 8.6MG TABLET (FP) PO SCH (21:24)
[2017-05-29] MEDS: ATORVASTATIN CA 10 MG TABLET (FP) PO SCH (21:25)
[2017-05-30] MEDS: CEFAZOLIN 2 GM/D5W 2 GM/50 ML ML IVPB SCH ×3 (02:36→17:57)
[2017-05-30] MEDS: SODIUM CHLORIDE 1,000 ML IV SCH (05:40)
[2017-05-30] MEDS: LEVOTHYROXINE NA 75 MCG TABLET (FP) PO SCH (06:13)
[2017-05-30 08:21] LABS: BASOPHIL 0.2 % (0-2.0); EOSINOPHIL 1.5 % (0-4.5); MCH 26.3 pg (25.7-33.7); MCHC 31.3 g/dl (32.0-36.0); MEAN CELL VOLUME 84.1 fl (80-96); MEAN PLT VOLUME 8.2 fl (7.5-11.1); NEUTROPHILS 72.3 % (42.8-82.8); PLATELET COUNT 376 K/MM3 (134-434); WHITE BLOOD COUNT 12.7 K/mm3 (4.0-10.0)
[2017-05-30] MEDS ORDERED: PT OWN MED DRAWER 7, Y5N ONE (08:45)
[2017-05-30 08:50] LABS: ALBUMIN 2.6 g/dl (3.4-5.0); ALK PHOS 58 U/L (45-117); ANION GAP 7 (8-16); BILIRUBIN,TOTAL 0.2 mg/dL (0.2-1.0); CALCIUM 8.4 mg/dL (8.5-10.1); CO2 33 mmol/L (21-32); CREATININE 0.6 mg/dL (0.55-1.02); GLUCOSE,RANDOM 75 mg/dL (74-106); MAGNESIUM 2.2 mg/dL (1.8-2.4); PHOSPHOROUS 1.9 mg/dL (2.5-4.9); SGOT/AST 17 U/L (15-37); SGPT/ALT 18 U/L (12-78); TOT PROT 5.6 g/dl (6.4-8.2)
[2017-05-30] MEDS: CEFAZOLIN 2 GM in DEXTROSE 5%-WATER - 100 ML IVPB SCH (08:59)
[2017-05-30] MEDS ORDERED: NAPH,MB-DB/K PH,MBDB POWDER PACKET PO ONE (09:30)
[2017-05-30] MEDS: LORATADINE 10 MG TABLET PO SCH (10:33)
[2017-05-30] MEDS: predniSONE 5 MG TABLET (UD) PO SCH (10:33)
[2017-05-30] MEDS: RIVAROXABAN 20 MG TABLET PO SCH (10:34)
[2017-05-30] MEDS: TIOTROPIUM BROMIDE 18 MCG/INH (DEVICE W/ 5 CAPSULES) IH SCH (10:34)
[2017-05-30] MEDS: MEMANTINE HCL 10 MG TABLET (FP) PO SCH ×2 (10:34→21:58)
[2017-05-30] MEDS: BUDESONIDE/FORMETEROL FUMARATE 80/4.5 mcg INHALER IH SCH ×3 (10:35→22:00)
--- NOTE | 2017-05-30 10:45 | PN ---
Progress Note (short form) - Note Progress Note: PULMONARY Feels "lousy", tired. No fevers or chills. Left arm still red but not tender. Denies shortness of breath or chest pain. Last Vital Signs Temp Pulse Resp BP Pulse Ox 97.7 F 74 20 158/79 95 05/30/17 06:00 05/30/17 06:00 05/30/17 06:00 05/30/17 06:00 05/29/17 21:00 Gen: NAD at rest Heart: RRR Lung: decreased breath sounds at the bases Abd: soft, nontender Ext: LUE edema, blanching erythema, nontender CBC, BMP 05/30/17 06:45 05/30/17 06:45 Active Medications Acetaminophen (Tylenol -) 650 mg PO Q6H PRN PRN Reason: PAIN Albuterol Sulfate (Ventolin Hfa Inhaler -) 1 - 2 puff IH QID PRN PRN Reason: SHORT OF BREATH/WHEEZING Alprazolam (Xanax -) 0.25 mg PO Q8H PRN PRN Reason: ANXIETY Atorvastatin Calcium (Lipitor -) 10 mg PO HS [facility] Last Admin: 05/29/17 21:25 Dose: 10 mg Budesonide/Formoterol Fumarate (Symbicort 80/4.5mcg -) 2 puff IH BID [facility] Last Admin: 05/29/17 22:12 Dose: 2 puff Diltiazem HCl (Cardizem Cd -) 240 mg PO DAILY@1200 [facility] Docusate Sodium (Colace -) 200 mg PO DAILY@1200 [facility] Donepezil HCl (Aricept -) 10 mg PO DAILY@1200 [facility] Escitalopram Oxalate (Lexapro -) 10 mg PO DAILY@1200 [facility] Ferrous Sulfate (Feosol -) 325 mg PO DAILY@1100 [facility] Gabapentin (Neurontin -) 300 mg PO BID@1200,2200 [facility] Last Admin: 05/29/17 21:25 Dose: 300 mg Cefazolin Sodium/Dextrose (Ancef 2 Gm Premixed Ivpb -) 2 gm in 50 mls @ 200 mls /hr IVPB Q8H-IV [facility] Last Admin: 05/30/17 08:59 Dose: 200 mls/hr Sodium Chloride (Normal Saline -) 1,000 mls @ 75 mls/hr IV ASDIR [facility] Last Admin: 05/30/17 05:40 Dose: 75 mls/hr Levothyroxine Sodium (Synthroid -) 75 mcg PO DAILY@0700 [facility] Last Admin: 05/30/17 06:13 Dose: 75 mcg Loratadine (Claritin -) 10 mg PO DAILY [facility] Last Admin: 05/30/17 10:33 Dose: 10 mg Memantine (Namenda -) 10 mg PO BID [facility] Last Admin: 05/30/17 10:34 Dose: 10 mg Oxybutynin Chloride (Ditropan -) 5 mg PO DAILY@1200 [facility] Polyethylene Glycol (Miralax (For Daily Use) -) 17 gm PO DAILY@1200 [facility] Prednisone (Deltasone -) 15 mg PO DAILY [facility] Last Admin: 05/30/17 10:33 Dose: 15 mg Rivaroxaban (Xarelto -) 20 mg PO DAILY [facility] Last Admin: 05/30/17 10:34 Dose: 20 mg Senna (Senna -) 2 tab PO HS [facility] Last Admin: 05/29/17 21:24 Dose: 2 tab Tiotropium [place] (Spiriva -) 1 puff IH DAILY [facility] Last Admin: 05/30/17 10:34 Dose: 1 inhaler A/P Cellulitis Left Olecranon Bursitis Sepsis COPD/Asthma Churg Eugenie Syndrome Chronic Hypoxic Respiratory Failure HTN DM h/o Lymphoma h/o DVT - continue antibiotics per ID - pain control - continue anticoagulation - OOB to chair if possible - inhaled bronchodilators - O2 to keep SpO2 >90%
[2017-05-30] MEDS: FERROUS SO4 325 MG TABLET (FP) PO SCH (10:58)
[2017-05-30] MEDS: ESCITALOPRAM OXALATE 10 MG TABLET (FP) PO SCH (11:23)
[2017-05-30] MEDS: OXYBUTYNIN CHLORIDE 5 MG TABLET PO SCH (11:23)
[2017-05-30] MEDS: DONEPEZIL HCL 10 MG TABLET (FP) PO SCH (11:23)
[2017-05-30] MEDS: DOCUSATE SODIUM 100 MG CAPSULE (FP) PO SCH (11:23)
[2017-05-30] MEDS: GABAPENTIN 300 MG CAPSULE (FP) PO SCH ×2 (11:23→21:58)
[2017-05-30] MEDS: POLYETHYLENE GLYCOL 3350 119 GM BTL PO SCH (11:24)
--- NOTE | 2017-05-30 13:26 | PN ---
Progress Note (short form) - Note Progress Note: arm still swollen Vital Signs Period Temp Pulse Resp BP Sys/Bahena Pulse Ox Last 24 Hr 97.7 F-98.8 F 74-96 18-20 131-160/70-85 95 cor-rrr lungs cllear abd soft,nt ext +erythema left inner arm, +swelling of bursa, arm is swollen CBC, BMP 05/30/17 06:45 05/30/17 06:45 Microbiology 05/25/17 12:10 Blood - Peripheral Venous Blood Culture - Final NO GROWTH AFTER 5 DAYS INCUBATION 05/25/17 12:10 Blood - Peripheral Venous Blood Culture - Final NO GROWTH AFTER 5 DAYS INCUBATION 05/26/17 14:05 Synovial Fluid - Elbow Gram Stain - Final 05/26/17 14:05 Synovial Fluid - Elbow Body Fluid Culture - Final Staphylococcus Aureus 05/26/17 14:05 Synovial Fluid - Elbow Anaerobic Culture - Final NO ANAEROBES WERE ISOLATED 05/26/17 06:55 Urine - Urine Clean Catch Urine Culture - Final NO GROWTH OBTAINED imp/reccd soft tissue infection LUE-olecronon bursitis immunocompromised host continue cefazolin day #5 antibiotics still erythema and swelling noted would continue iv today and re-evaluate in am Problem List - Problems (1) Cellulitis of upper extremity Code(s): L03.119 - CELLULITIS OF UNSPECIFIED PART OF LIMB (2) Immunocompromised state Code(s): D84.9 - IMMUNODEFICIENCY, UNSPECIFIED (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
--- NOTE | 2017-05-30 14:55 | PN ---
Physical Exam: SUBJECTIVE: Patient seen and examined. Elbow still swollen, tender. Has full ROM. No other complaints. OBJECTIVE: Vital Signs Period Temp Pulse Resp BP Sys/Bahena Pulse Ox Last 24 Hr 97.7 F-98.8 F 74-96 20-20 131-160/70-94 95 GEN: Awake, alert, not oriented to place and month, but responds to questions HEENT: PERRLA, EOMi, no cervical LAD CV: S1, S2, 2/6 systolic murmur LUNG: Decreased air entry, no crackles ABD: Soft, NT, ND MSK: Warm, swollen, increased indurated area lateral to L elbow. Still able to passively and actively lift L arm. 2+ pulses. +2/3 pitting edema from hand to upper arm. NEURO: Facial symmetry, MSK and sensation intact Active Medications Generic Name Dose Route Start Last Admin Trade Name Freq PRN Reason Stop Dose Admin Acetaminophen 650 mg 05/29/17 18:34 Tylenol - PO Q6H PRN PAIN Albuterol Sulfate 1 - 2 puff 05/29/17 18:34 Ventolin Hfa Inhaler - IH QID PRN SHORT OF BREATH/WHEEZING Alprazolam 0.25 mg 05/29/17 18:34 Xanax - PO Q8H PRN ANXIETY Atorvastatin Calcium 10 mg 05/29/17 22:00 05/29/17 21:25 Lipitor - PO 10 mg HS [facility] Administration Budesonide/Formoterol Fumarate 2 puff 05/29/17 22:00 05/30/17 10:47 Symbicort 80/4.5mcg - IH 2 puff BID [facility] Administration Diltiazem HCl 240 mg 05/30/17 12:00 05/30/17 11:23 Cardizem Cd - PO 240 mg DAILY@1200 [facility] Administration Docusate Sodium 200 mg 05/30/17 12:00 05/30/17 11:23 Colace - PO 200 mg DAILY@1200 [facility] Administration Donepezil HCl 10 mg 05/30/17 12:00 05/30/17 11:23 Aricept - PO 10 mg DAILY@1200 [facility] Administration Escitalopram Oxalate 10 mg 05/30/17 12:00 05/30/17 11:23 Lexapro - PO 10 mg DAILY@1200 [facility] Administration Ferrous Sulfate 325 mg 05/30/17 11:00 05/30/17 10:58 Feosol - PO 325 mg DAILY@1100 [facility] Administration Gabapentin 300 mg 05/29/17 22:00 05/30/17 11:23 Neurontin - PO 300 mg BID@1200,2200 [facility] Administration Cefazolin Sodium/Dextrose 2 gm in 50 mls @ 200 mls/hr 05/30/17 02:00 08:59 Ancef 2 Gm Premixed Ivpb - IVPB 200 mls/hr Q8H-IV [facility] Administration Levothyroxine Sodium 75 mcg 05/30/17 07:00 05/30/17 06:13 Synthroid - PO 75 mcg DAILY@0700 [facility] Administration Loratadine 10 mg 05/30/17 10:00 05/30/17 10:33 Claritin - PO 10 mg DAILY [facility] Administration Memantine 10 mg 05/29/17 22:00 05/30/17 10:34 Namenda - PO 10 mg BID [facility] Administration Oxybutynin Chloride 5 mg 05/30/17 12:00 05/30/17 11:23 Ditropan - PO 5 mg DAILY@1200 [facility] Administration Polyethylene Glycol 17 gm 05/30/17 12:00 05/30/17 11:24 Miralax (For Daily Use) - PO 17 gm DAILY@1200 [facility] Administration Prednisone 15 mg 05/30/17 10:00 05/30/17 10:33 Deltasone - PO 15 mg DAILY [facility] Administration Rivaroxaban 20 mg 05/29/17 18:00 05/30/17 10:34 Xarelto - PO 20 mg DAILY [facility] Administration Senna 2 tab 05/29/17 22:00 05/29/17 21:24 Senna - PO 2 tab HS [facility] Administration Tiotropium [place] 1 puff 05/30/17 10:00 05/30/17 10:34 Spiriva - IH 1 inhaler DAILY [facility] Administration ASSESSMENT/PLAN: 87yo F with PMHx of COPD on 2L home O2 and prednisone, 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 Though no fevers and WBC improving, arm is still erythematous and swollen. Will continue IV Cefazolin 2g Q8H Day 5. Will try to reach Dr. Real to see patient again today. Cultures growing +MSSA. # L brachial vein DVT - Dopplers taken due to LUE swelling. Likely provoked due to relative immobility at [place]. Continue Xarelto. Keep arm elevated # Hx of Superficial Femoral VT - Restart Xarelto, also for L brachial DVT # Churgg Eugenie - continue Prednisone, HOLD Cellcept for now, but can restart upon d/c # Normocytic Anemia - Labs show STACEY, d/c on ferrous sulfate # Hx of CAD - continue ASA # COPD/Asthma - continue Spiriva, symbicort, duonebs PRN # Alzheimer dementia - continue Donepezil # HTN - continue Cardizem # HLD - continue Lipitor # Hypothyroidism - continue Synthroid # Overactive Bladder - continue Oxybutynin # Anxiety/Depression - continue xanax and lexapro # GERD - zantac # Constipation - continue senna, colace, and miralax # FEN/PPx - Stopped fluids, low sodium diet, SCDs # Dispo - Pt doing better. Will likely be dc'd tmrw if improving. No fevers, WBC going down. Needs continued antibiotics d/w Dr Christa Hernadez MD - PGY1 Internal Medicine Visit type - Emergency Visit Emergency Visit: No - New Patient This patient is new to me today: No - Critical Care Critical Care patient: No - Discharge Referral Referred to [facility] Med [facility] No
--- NOTE | 2017-05-30 17:29 | PN ---
Teaching Attending Note Name of Resident: Harini Hernadez ATTENDING PHYSICIAN STATEMENT I saw and evaluated the patient. I reviewed the resident's note and discussed the case with the resident. I agree with the resident's findings and plan as documented. SUBJECTIVE:asymptomatic. denies CP, SOB, fever, chills, n/V/C/D OBJECTIVE: Last Vital Signs Temp Pulse Resp BP Pulse Ox 97.9 F 86 18 135/94 95 05/30/17 15:33 05/30/17 15:33 05/30/17 15:33 05/30/17 10:00 05/29/17 21:00 General NAD CV S1 S2 RRR no murmur/rub/gallop Lungs CTA B/L anteriorly Extremities LUE erythema, warmth and swelling to entire arm. 1cm laceration to olenecron with serous drainage. area is tender. some pustular drainage on bandage noted. Full ROM at L shoulder, L elbow limited to pain on full extension. supination/pronation intact ASSESSMENT AND PLAN: 87yo F wtih PMH Churg Eugenie, COPD on home O2, NHL, DVT on Xarelto, hypothyroid presnted to the ER with pain and swelling LUE after mechanical fall 2 weeks ago 1. Sepsis due to L olecranon bursitis with abscess-+MSSA s/p drainage 05/26 and 05/28. concerned may still require further drainage. will request ID and ortho to re-evaluate. consider repeat imaging to further assess if delayed abscess formation. pt is afebrile with downtrending leukocytosis however as pt is immunocompromised may not mount fever. on Cefazolin day 5. ID and ortho on board. 2. hypoposphatemia- neutraphos 3. Anemia- no signs of active bleeding. iron studies indicative of iron def anemia. started on iron supplementation 4. DVT on xarelto 5. NHL- hold cellcept 6. Hypothyroid- on Lt4 7. DVT ppx- on xarelto 8. PT assessment. pt currently resides in assisting living. will need to d/w daughter if this is plan when medically optimized
--- NOTE | 2017-05-30 17:34 | PN ---
Progress Note (short form) - Note Progress Note: She feels well. Resting in bed. WBC trending down PE: Swelling and erythema much improved since yesterday along olecranon bursa. No palpable abscess. Minimal tenderness. NVID Impression left septic olecranon bursitis, improving Plan -Continue IV ABX -No further surgical intervention indicated at this time -Pain control/Elevation
[2017-05-30] MEDS: SENNOSIDES 8.6MG TABLET (FP) PO SCH (21:58)
[2017-05-30] MEDS: ALPRAZolam 0.25 MG TABLET PO PRN (21:58)
[2017-05-30] MEDS: ATORVASTATIN CA 10 MG TABLET (FP) PO SCH (21:58)
[2017-05-31] MEDS: CEFAZOLIN 2 GM/D5W 2 GM/50 ML ML IVPB SCH ×3 (02:27→17:36)
[2017-05-31] MEDS: LEVOTHYROXINE NA 75 MCG TABLET (FP) PO SCH (06:27)
[2017-05-31] MEDS ORDERED: PT OWN MED DRAWER 7, Y5N ONE ×2 (06:52→09:50)
[2017-05-31 08:04] LABS: MCH 26.3 pg (25.7-33.7); MCHC 31.2 g/dl (32.0-36.0); MEAN CELL VOLUME 84.2 fl (80-96); PLATELET COUNT 384 K/MM3 (134-434); WHITE BLOOD COUNT 13.5 K/mm3 (4.0-10.0)
--- NOTE | 2017-05-31 08:43 | PN ---
Physical Exam: SUBJECTIVE: Patient seen and examined. Arm still swollen and slgihtly tender. Full ROM. No fevers, chills, SOB. OBJECTIVE: Vital Signs Period Temp Pulse Resp BP Sys/Bahena Pulse Ox Last 24 Hr 97.9 F-98.8 F 79-98 18-20 128-157/72-94 98 GEN: Awake, alert, not oriented to place and month, but responds to questions HEENT: PERRLA, EOMi, no cervical LAD CV: S1, S2, 2/6 systolic murmur LUNG: Decreased air entry, no crackles ABD: Soft, NT, ND MSK: Worsening erythema, edema is resolving with intermittent elevation. On olecranon, still fluculent, mild drainage. Still able to passively and actively lift L arm. 2+ pulses. NEURO: Facial symmetry, MSK and sensation intact Active Medications Generic Name Dose Route Start Last Admin Trade Name Freq PRN Reason Stop Dose Admin Acetaminophen 650 mg 05/29/17 18:34 Tylenol - PO Q6H PRN PAIN Albuterol Sulfate 1 - 2 puff 05/29/17 18:34 Ventolin Hfa Inhaler - IH QID PRN SHORT OF BREATH/WHEEZING Alprazolam 0.25 mg 05/29/17 18:34 05/30/17 21:58 Xanax - PO 0.25 mg Q8H PRN Administration ANXIETY Atorvastatin Calcium 10 mg 05/29/17 22:00 05/30/17 21:58 Lipitor - PO 10 mg HS [facility] Administration Budesonide/Formoterol Fumarate 2 puff 05/29/17 22:00 05/30/17 22:00 Symbicort 80/4.5mcg - IH 2 puff BID [facility] Administration Diltiazem HCl 240 mg 05/30/17 12:00 05/30/17 11:23 Cardizem Cd - PO 240 mg DAILY@1200 [facility] Administration Docusate Sodium 200 mg 05/30/17 12:00 05/30/17 11:23 Colace - PO 200 mg DAILY@1200 [facility] Administration Donepezil HCl 10 mg 05/30/17 12:00 05/30/17 11:23 Aricept - PO 10 mg DAILY@1200 [facility] Administration Escitalopram Oxalate 10 mg 05/30/17 12:00 05/30/17 11:23 Lexapro - PO 10 mg DAILY@1200 [facility] Administration Ferrous Sulfate 325 mg 05/30/17 11:00 05/30/17 10:58 Feosol - PO 325 mg DAILY@1100 [facility] Administration Gabapentin 300 mg 05/29/17 22:00 05/30/17 21:58 Neurontin - PO 300 mg BID@1200,2200 [facility] Administration Cefazolin Sodium/Dextrose 2 gm in 50 mls @ 200 mls/hr 05/30/17 02:00 02:27 Ancef 2 Gm Premixed Ivpb - IVPB 200 mls/hr Q8H-IV [facility] Administration Levothyroxine Sodium 75 mcg 05/30/17 07:00 05/31/17 06:27 Synthroid - PO 75 mcg DAILY@0700 [facility] Administration Loratadine 10 mg 05/30/17 10:00 05/30/17 10:33 Claritin - PO 10 mg DAILY [facility] Administration Memantine 10 mg 05/29/17 22:00 05/30/17 21:58 Namenda - PO 10 mg BID [facility] Administration Oxybutynin Chloride 5 mg 05/30/17 12:00 05/30/17 11:23 Ditropan - PO 5 mg DAILY@1200 [facility] Administration Polyethylene Glycol 17 gm 05/30/17 12:00 05/30/17 11:24 Miralax (For Daily Use) - PO 17 gm DAILY@1200 [facility] Administration Prednisone 15 mg 05/30/17 10:00 05/30/17 10:33 Deltasone - PO 15 mg DAILY [facility] Administration Rivaroxaban 20 mg 05/29/17 18:00 05/30/17 10:34 Xarelto - PO 20 mg DAILY [facility] Administration Senna 2 tab 05/29/17 22:00 05/30/17 21:58 Senna - PO 2 tab HS [facility] Administration Tiotropium [place] 1 puff 05/30/17 10:00 05/30/17 10:34 Spiriva - IH 1 inhaler DAILY [facility] Administration ASSESSMENT/PLAN: 87yo F with PMHx of COPD on 2L home O2 and prednisone, 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 Though afebrile, elbow still looks erythematous and swollen. WBC increasing. Will likely need continued antibiotics. IV Cefazolin 2g Q8H Day 6. Ortho saw yesterday stated no intervention necessary. Continue warm compresses and elevating the arm # L brachial vein DVT - Dopplers taken due to LUE swelling. Likely provoked due to relative immobility at [place]. Continue Xarelto. Keep arm elevated # Hx of Superficial Femoral VT - Restart Xarelto, also for L brachial DVT # Churgg Eugenie - continue Prednisone, HOLD Cellcept for now, but can restart upon d/c # Normocytic Anemia - Labs show STACEY, started on Ferrous Sulfate # Hx of CAD - continue ASA # COPD/Asthma - continue Spiriva, symbicort, duonebs PRN # Alzheimer dementia - continue Donepezil # HTN - continue Cardizem # HLD - continue Lipitor # Hypothyroidism - continue Synthroid # Overactive Bladder - continue Oxybutynin # Anxiety/Depression - continue xanax and lexapro # GERD - continue Zantac # Constipation - continue senna, colace, and miralax # FEN/PPx - Stopped fluids, low sodium diet, SCDs # Dispo - Elbow still swollen, likely needs continue antibiotics, hopeful d/c before Monday d/w Dr Christa Hernadez MD - PGY1 Internal Medicine Visit type - Emergency Visit Emergency Visit: No - New Patient This patient is new to me today: No - Critical Care Critical Care patient: No - Discharge Referral Referred to [facility] Med P.C.: No
[2017-05-31 08:46] LABS: ALBUMIN 2.5 g/dl (3.4-5.0); ANION GAP 7 (8-16); CO2 34 mmol/L (21-32); GLUCOSE,RANDOM 74 mg/dL (74-106)
[2017-05-31 08:49] LABS: ALK PHOS 56 U/L (45-117); BILIRUBIN,TOTAL 0.4 mg/dL (0.2-1.0); CREATININE 0.6 mg/dL (0.55-1.02); SGOT/AST 18 U/L (15-37); SGPT/ALT 15 U/L (12-78); TOT PROT 5.7 g/dl (6.4-8.2)
[2017-05-31] MEDS: RIVAROXABAN 20 MG TABLET PO SCH (10:28)
[2017-05-31] MEDS: predniSONE 5 MG TABLET (UD) PO SCH (10:28)
[2017-05-31] MEDS: MEMANTINE HCL 10 MG TABLET (FP) PO SCH ×2 (10:28→21:52)
[2017-05-31] MEDS: LORATADINE 10 MG TABLET PO SCH (10:28)
[2017-05-31] MEDS: BUDESONIDE/FORMETEROL FUMARATE 80/4.5 mcg INHALER IH SCH ×2 (10:29→21:52)
[2017-05-31] MEDS: POLYETHYLENE GLYCOL 3350 119 GM BTL PO SCH (12:21)
[2017-05-31] MEDS: OXYBUTYNIN CHLORIDE 5 MG TABLET PO SCH (12:22)
[2017-05-31] MEDS: DONEPEZIL HCL 10 MG TABLET (FP) PO SCH (12:22)
[2017-05-31] MEDS: FERROUS SO4 325 MG TABLET (FP) PO SCH (12:22)
[2017-05-31] MEDS: ESCITALOPRAM OXALATE 10 MG TABLET (FP) PO SCH (12:22)
[2017-05-31] MEDS: DOCUSATE SODIUM 100 MG CAPSULE (FP) PO SCH (12:22)
[2017-05-31] MEDS: GABAPENTIN 300 MG CAPSULE (FP) PO SCH ×2 (12:22→21:51)
--- NOTE | 2017-05-31 13:57 | PN ---
Teaching Attending Note Name of Resident: Harini Hernadez ATTENDING PHYSICIAN STATEMENT I saw and evaluated the patient. I reviewed the resident's note and discussed the case with the resident. I agree with the resident's findings and plan as documented. SUBJECTIVE:states L arm pain is the same. is not worse. denies CP, SOB, fever, chills, N/V/C/D OBJECTIVE: Last Vital Signs Temp Pulse Resp BP Pulse Ox 98.4 F 80 18 121/69 96 05/31/17 11:00 05/31/17 11:00 05/31/17 11:00 05/31/17 11:00 05/31/17 10:09 General NAD CV S1 S2 RRR no murmur/rub/gallop Lungs CTA B/L anteriorly Extremities LUE erythema, warmth and swelling to entire arm. 1cm laceration to olenecron with serous drainage. area is tender. Full ROM at L shoulder, L elbow limited to pain on full extension. supination/pronation intact ASSESSMENT AND PLAN: 87yo F wtih PMH Churg Eugenie, COPD on home O2, NHL, DVT on Xarelto, hypothyroid presnted to the ER with pain and swelling LUE after mechanical fall 2 weeks ago 1. Sepsis due to L olecranon bursitis with abscess-+MSSA s/p drainage 05/26 and 05/28. looks about the same as yesterday. evaluated by ortho and no furtehr drainage needed. leukocytosis worsening. will start warm compresses and elevate the arm. if leukocytosis worsens or arm does not improve will consider repeating imaging studies. on Cefazolin day 6. ID and ortho on board. 2. hypoposphatemia- resolved 3. Anemia- no signs of active bleeding. iron studies indicative of iron def anemia. started on iron supplementation 4. DVT on xarelto 5. NHL- hold cellcept 6. Hypothyroid- on Lt4 7. DVT ppx- on xarelto 8. PT assessment. pt currently resides in assisting living. will need to d/w daughter if this is plan when medically optimized
--- NOTE | 2017-05-31 14:08 | PN ---
Progress Note (short form) - Note Progress Note: PULMONARY Feels better today. No fevers or chills. Denies arm pain. Denies shortness of breath or chest pain. Last Vital Signs Temp Pulse Resp BP Pulse Ox 98.4 F 80 18 121/69 96 05/31/17 11:00 05/31/17 11:00 05/31/17 11:00 05/31/17 11:00 05/31/17 10:09 Gen: NAD at rest Heart: RRR Lung: decreased breath sounds at the bases Abd: soft, nontender Ext: LUE edema, less erythema, nontender CBC, BMP 05/31/17 06:50 05/31/17 06:50 Active Medications Acetaminophen (Tylenol -) 650 mg PO Q6H PRN PRN Reason: PAIN Albuterol Sulfate (Ventolin Hfa Inhaler -) 1 - 2 puff IH QID PRN PRN Reason: SHORT OF BREATH/WHEEZING Last Admin: 05/31/17 10:27 Dose: 1 puff Alprazolam (Xanax -) 0.25 mg PO Q8H PRN PRN Reason: ANXIETY Last Admin: 05/30/17 21:58 Dose: 0.25 mg Atorvastatin Calcium (Lipitor -) 10 mg PO HS [facility] Last Admin: 05/30/17 21:58 Dose: 10 mg Budesonide/Formoterol Fumarate (Symbicort 80/4.5mcg -) 2 puff IH BID [facility] Last Admin: 05/31/17 10:29 Dose: 2 puff Diltiazem HCl (Cardizem Cd -) 240 mg PO DAILY@1200 [facility] Last Admin: 05/31/17 12:22 Dose: 240 mg Docusate Sodium (Colace -) 200 mg PO DAILY@1200 [facility] Last Admin: 05/31/17 12:22 Dose: 200 mg Donepezil HCl (Aricept -) 10 mg PO DAILY@1200 [facility] Last Admin: 05/31/17 12:22 Dose: 10 mg Escitalopram Oxalate (Lexapro -) 10 mg PO DAILY@1200 [facility] Last Admin: 05/31/17 12:22 Dose: 10 mg Ferrous Sulfate (Feosol -) 325 mg PO DAILY@1100 [facility] Last Admin: 05/31/17 12:22 Dose: 325 mg Gabapentin (Neurontin -) 300 mg PO BID@1200,2200 [facility] Last Admin: 05/31/17 12:22 Dose: 300 mg Cefazolin Sodium/Dextrose (Ancef 2 Gm Premixed Ivpb -) 2 gm in 50 mls @ 200 mls /hr IVPB Q8H-IV [facility] Last Admin: 05/31/17 10:26 Dose: 200 mls/hr Levothyroxine Sodium (Synthroid -) 75 mcg PO DAILY@0700 [facility] Last Admin: 05/31/17 06:27 Dose: 75 mcg Loratadine (Claritin -) 10 mg PO DAILY [facility] Last Admin: 05/31/17 10:28 Dose: 10 mg Memantine (Namenda -) 10 mg PO BID [facility] Last Admin: 05/31/17 10:28 Dose: 10 mg Oxybutynin Chloride (Ditropan -) 5 mg PO DAILY@1200 [facility] Last Admin: 05/31/17 12:22 Dose: 5 mg Polyethylene Glycol (Miralax (For Daily Use) -) 17 gm PO DAILY@1200 [facility] Last Admin: 05/31/17 12:21 Dose: 17 gm Prednisone (Deltasone -) 15 mg PO DAILY [facility] Last Admin: 05/31/17 10:28 Dose: 15 mg Rivaroxaban (Xarelto -) 20 mg PO DAILY [facility] Last Admin: 05/31/17 10:28 Dose: 20 mg Senna (Senna -) 2 tab PO HS [facility] Last Admin: 05/30/17 21:58 Dose: 2 tab Tiotropium [place] (Spiriva -) 1 puff IH DAILY [facility] Last Admin: 05/30/17 10:34 Dose: 1 inhaler A/P Cellulitis Left Olecranon Bursitis Sepsis COPD/Asthma Churg Eugenie Syndrome Chronic Hypoxic Respiratory Failure HTN DM h/o Lymphoma h/o DVT - continue antibiotics per ID - pain control - continue anticoagulation - OOB to chair if possible - inhaled bronchodilators - O2 to keep SpO2 >90%
[2017-05-31] MEDS: TIOTROPIUM BROMIDE 18 MCG/INH (DEVICE W/ 5 CAPSULES) IH SCH (15:39)
--- NOTE | 2017-05-31 15:47 | PN ---
Physical Exam: SUBJECTIVE: Patient seen and examined. No acute events. pt denies any complaints. LUE is less painful and improving. Denies fevers, chills, SOB, CP, n/v/d/c, and dysuria. OBJECTIVE: Vital Signs Period Temp Pulse Resp BP Sys/Bahena Pulse Ox Last 24 Hr 97.9 F-98.8 F 79-98 18-20 121-157/56-86 96-98 GENERAL: The patient is awake, alert, and fully oriented, in no acute distress. HEAD: Normal with no signs of trauma. EYES: PERRL, extraocular movements intact, sclera anicteric, conjunctiva clear. No ptosis. ENT: Ears normal, nares patent, oropharynx clear without exudates, moist mucous membranes. NECK: Trachea midline, full range of motion, supple. LUNGS: Breath sounds equal, clear to auscultation bilaterally, no wheezes, no crackles, no accessory muscle use. HEART: Regular rate and rhythm, S1, S2 without murmur, rub or gallop. ABDOMEN: Soft, nontender, nondistended, normoactive bowel sounds, no guarding, no rebound, no hepatosplenomegaly, no masses. EXTREMITIES: LUE has decreased erythema, olecranon bursa is still swollen, draining minimal serosanguinous fluid NEUROLOGICAL: Cranial nerves II through XII grossly intact. Normal speech, gait not observed. PSYCH: Normal mood, normal affect. SKIN: Warm, dry, normal turgor, no rashes or lesions noted Laboratory Results - last 24 hr 05/30/17 05/31/17 05/31/17 17:03 06:27 06:50 WBC 13.5 H RBC 3.27 L Hgb 8.6 L Hct 27.5 L MCV 84.2 MCH 26.3 MCHC 31.2 L RDW 16.0 H Plt Count 384 MPV 8.0 Sodium Potassium Chloride Carbon Dioxide Anion Gap BUN Creatinine Creat Clearance w eGFR POC Glucometer 134 84 Random Glucose Calcium Total Bilirubin AST ALT Alkaline Phosphatase Total Protein Albumin 05/31/17 06:50 WBC RBC Hgb Hct MCV MCH MCHC RDW Plt Count MPV Sodium 143 Potassium 3.6 Chloride 102 Carbon Dioxide 34 H Anion Gap 7 L BUN 13 D Creatinine 0.6 Creat Clearance w eGFR > 60 POC Glucometer Random Glucose 74 Calcium 9.0 Total Bilirubin 0.4 D AST 18 ALT 15 Alkaline Phosphatase 56 Total Protein 5.7 L Albumin 2.5 L Active Medications Generic Name Dose Route Start Last Admin Trade Name Freq PRN Reason Stop Dose Admin Acetaminophen 650 mg 05/29/17 18:34 Tylenol - PO Q6H PRN PAIN Albuterol Sulfate 1 - 2 puff 05/29/17 18:34 05/31/17 10:27 Ventolin Hfa Inhaler - IH 1 puff QID PRN Administration SHORT OF BREATH/WHEEZING Alprazolam 0.25 mg 05/29/17 18:34 05/30/17 21:58 Xanax - PO 0.25 mg Q8H PRN Administration ANXIETY Atorvastatin Calcium 10 mg 05/29/17 22:00 05/30/17 21:58 Lipitor - PO 10 mg HS [facility] Administration Budesonide/Formoterol Fumarate 2 puff 05/29/17 22:00 05/31/17 10:29 Symbicort 80/4.5mcg - IH 2 puff BID [facility] Administration Diltiazem HCl 240 mg 05/30/17 12:00 05/31/17 12:22 Cardizem Cd - PO 240 mg DAILY@1200 [facility] Administration Docusate Sodium 200 mg 05/30/17 12:00 05/31/17 12:22 Colace - PO 200 mg DAILY@1200 [facility] Administration Donepezil HCl 10 mg 05/30/17 12:00 05/31/17 12:22 Aricept - PO 10 mg DAILY@1200 [facility] Administration Escitalopram Oxalate 10 mg 05/30/17 12:00 05/31/17 12:22 Lexapro - PO 10 mg DAILY@1200 [facility] Administration Ferrous Sulfate 325 mg 05/30/17 11:00 05/31/17 12:22 Feosol - PO 325 mg DAILY@1100 [facility] Administration Gabapentin 300 mg 05/29/17 22:00 05/31/17 12:22 Neurontin - PO 300 mg BID@1200,2200 [facility] Administration Cefazolin Sodium/Dextrose 2 gm in 50 mls @ 200 mls/hr 05/30/17 02:00 10:26 Ancef 2 Gm Premixed Ivpb - IVPB 200 mls/hr Q8H-IV [facility] Administration Levothyroxine Sodium 75 mcg 05/30/17 07:00 05/31/17 06:27 Synthroid - PO 75 mcg DAILY@0700 [facility] Administration Loratadine 10 mg 05/30/17 10:00 05/31/17 10:28 Claritin - PO 10 mg DAILY [facility] Administration Memantine 10 mg 05/29/17 22:00 05/31/17 10:28 Namenda - PO 10 mg BID [facility] Administration Oxybutynin Chloride 5 mg 05/30/17 12:00 05/31/17 12:22 Ditropan - PO 5 mg DAILY@1200 [facility] Administration Polyethylene Glycol 17 gm 05/30/17 12:00 05/31/17 12:21 Miralax (For Daily Use) - PO 17 gm DAILY@1200 [facility] Administration Prednisone 15 mg 05/30/17 10:00 05/31/17 10:28 Deltasone - PO 15 mg DAILY [facility] Administration Rivaroxaban 20 mg 05/29/17 18:00 05/31/17 10:28 Xarelto - PO 20 mg DAILY [facility] Administration Senna 2 tab 05/29/17 22:00 05/30/17 21:58 Senna - PO 2 tab HS [facility] Administration Tiotropium [place] 1 puff 05/30/17 10:00 05/31/17 15:39 Spiriva - IH 1 puff DAILY [facility] Administration ASSESSMENT/PLAN: 87yo F with PMHx of COPD on 2L home O2 and prednisone, 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 # Sepsis 2/2 infected L olecranon bursitis +MSSA -afebrile, still leukocytotic -less erythema and swelling, improving - continue IV Cefazolin 2g Q8H -per ortho, no further intervention necessary - continue warm compresses and elevating the arm Rest of care per medical team. Plan discussed with attending, Dr. Sidhu. -Wander Arias MD PGY1 ID Team Visit type - Emergency Visit Emergency Visit: Yes ED Registration Date: 05/25/17 Care time: The patient presented to the Emergency Department on the above date and was hospitalized for further evaluation of their emergent condition. - New Patient This patient is new to me today: No - Critical Care Critical Care patient: No
--- NOTE | 2017-05-31 16:03 | PN ---
Teaching Attending Note Name of Resident: Wander Arias ATTENDING PHYSICIAN STATEMENT I saw and evaluated the patient. I reviewed the resident's note and discussed the case with the resident. I agree with the resident's findings and plan as documented. SUBJECTIVE: feels well no diarrha OBJECTIVE: Vital Signs Period Temp Pulse Resp BP Sys/Bahena Pulse Ox Last 24 Hr 97.9 F-98.8 F 79-98 18-20 121-157/56-86 96-98 cor-rrr lungs clear arm much improved, some serous drainage from olecronon bursa, much less erythema and edema CBC, BMP 05/31/17 06:50 05/31/17 06:50 ASSESSMENT AND PLAN: olecronon bursitis with cellulitis- MSSA improving continue cefazolin day #6 Problem List - Problems (1) Cellulitis of upper extremity Code(s): L03.119 - CELLULITIS OF UNSPECIFIED PART OF LIMB (2) Immunocompromised state Code(s): D84.9 - IMMUNODEFICIENCY, UNSPECIFIED (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
[2017-05-31] MEDS: SENNOSIDES 8.6MG TABLET (FP) PO SCH (21:51)
[2017-05-31] MEDS: ATORVASTATIN CA 10 MG TABLET (FP) PO SCH (21:52)
[2017-05-31] MEDS: ALPRAZolam 0.25 MG TABLET PO PRN (21:52)
[2017-06-01] MEDS: CEFAZOLIN 2 GM/D5W 2 GM/50 ML ML IVPB SCH ×3 (01:40→17:05)
[2017-06-01] MEDS: LEVOTHYROXINE NA 75 MCG TABLET (FP) PO SCH (06:32)
[2017-06-01 09:12] LABS: MCHC 30.7 g/dl (32.0-36.0); MEAN CELL VOLUME 84.6 fl (80-96); MEAN PLT VOLUME 8.1 fl (7.5-11.1); PLATELET COUNT 425 K/MM3 (134-434); RDW 16.1 % (11.6-15.6); WHITE BLOOD COUNT 15.2 K/mm3 (4.0-10.0)
[2017-06-01 09:38] LABS: ANION GAP 3 (8-16); CALCIUM 8.7 mg/dL (8.5-10.1); CO2 37 mmol/L (21-32); CREATININE 0.7 mg/dL (0.55-1.02); GLUCOSE,RANDOM 78 mg/dL (74-106)
--- NOTE | 2017-06-01 10:28 | PN ---
Physical Exam: SUBJECTIVE: Patient seen and examined. Pt reports no complaints. She states that her left elbow is fine without pain. She denies fevers, chills, SOB, chest pain, n/v/d/c, and dysuria. OBJECTIVE: Vital Signs Period Temp Pulse Resp BP Sys/Bahena Pulse Ox Last 24 Hr 98.1 F-98.9 F 73-96 18-20 121-149/56-75 96 GENERAL: The patient is awake, AAOx 1 (name), in NAD HEENT: NC, AT, EOMI NECK: Trachea midline, full range of motion, supple. LUNGS: Breath sounds equal, clear to auscultation bilaterally, no wheezes, no crackles, no accessory muscle use. HEART: Regular rate and rhythm, S1, S2 without murmur, rub or gallop. ABDOMEN: Soft, nontender, nondistended, normoactive bowel sounds, no guarding, no rebound, no hepatosplenomegaly, no masses. EXTREMITIES: L olecranon bursa appears same as yesterday, draining little serosanguinous fluid, warm to touch, slight erythema tracking up medial arm NEUROLOGICAL: Cranial nerves II through XII grossly intact. Normal speech, gait not observed. Laboratory Results - last 24 hr 05/31/17 05/31/17 06/01/17 17:41 21:51 06:21 WBC RBC Hgb Hct MCV MCH MCHC RDW Plt Count MPV Sodium Potassium Chloride Carbon Dioxide Anion Gap BUN Creatinine POC Glucometer 143 127 88 Random Glucose Calcium 06/01/17 06/01/17 08:20 08:20 WBC 15.2 H RBC 3.36 L Hgb 8.7 L Hct 28.4 L MCV 84.6 MCH 26.0 MCHC 30.7 L RDW 16.1 H Plt Count 425 MPV 8.1 Sodium 144 Potassium 3.8 Chloride 104 Carbon Dioxide 37 H Anion Gap 3 L BUN 23 H D Creatinine 0.7 POC Glucometer Random Glucose 78 Calcium 8.7 Active Medications Generic Name Dose Route Start Last Admin Trade Name Freq PRN Reason Stop Dose Admin Acetaminophen 650 mg 05/29/17 18:34 Tylenol - PO Q6H PRN PAIN Albuterol Sulfate 1 - 2 puff 05/29/17 18:34 05/31/17 10:27 Ventolin Hfa Inhaler - IH 1 puff QID PRN Administration SHORT OF BREATH/WHEEZING Alprazolam 0.25 mg 05/29/17 18:34 05/31/17 21:52 Xanax - PO 0.25 mg Q8H PRN Administration ANXIETY Atorvastatin Calcium 10 mg 05/29/17 22:00 05/31/17 21:52 Lipitor - PO 10 mg HS [facility] Administration Budesonide/Formoterol Fumarate 2 puff 05/29/17 22:00 05/31/17 21:52 Symbicort 80/4.5mcg - IH 2 puff BID [facility] Administration Diltiazem HCl 240 mg 05/30/17 12:00 05/31/17 12:22 Cardizem Cd - PO 240 mg DAILY@1200 [facility] Administration Docusate Sodium 200 mg 05/30/17 12:00 05/31/17 12:22 Colace - PO 200 mg DAILY@1200 [facility] Administration Donepezil HCl 10 mg 05/30/17 12:00 05/31/17 12:22 Aricept - PO 10 mg DAILY@1200 [facility] Administration Escitalopram Oxalate 10 mg 05/30/17 12:00 05/31/17 12:22 Lexapro - PO 10 mg DAILY@1200 [facility] Administration Ferrous Sulfate 325 mg 05/30/17 11:00 05/31/17 12:22 Feosol - PO 325 mg DAILY@1100 [facility] Administration Gabapentin 300 mg 05/29/17 22:00 05/31/17 21:51 Neurontin - PO 300 mg BID@1200,2200 [facility] Administration Cefazolin Sodium/Dextrose 2 gm in 50 mls @ 200 mls/hr 05/30/17 02:00 01:40 Ancef 2 Gm Premixed Ivpb - IVPB 200 mls/hr Q8H-IV [facility] Administration Levothyroxine Sodium 75 mcg 05/30/17 07:00 06/01/17 06:32 Synthroid - PO 75 mcg DAILY@0700 [facility] Administration Loratadine 10 mg 05/30/17 10:00 05/31/17 10:28 Claritin - PO 10 mg DAILY [facility] Administration Memantine 10 mg 05/29/17 22:00 05/31/17 21:52 Namenda - PO 10 mg BID [facility] Administration Oxybutynin Chloride 5 mg 05/30/17 12:00 05/31/17 12:22 Ditropan - PO 5 mg DAILY@1200 [facility] Administration Polyethylene Glycol 17 gm 05/30/17 12:00 05/31/17 12:21 Miralax (For Daily Use) - PO 17 gm DAILY@1200 [facility] Administration Prednisone 15 mg 05/30/17 10:00 05/31/17 10:28 Deltasone - PO 15 mg DAILY [facility] Administration Rivaroxaban 20 mg 05/29/17 18:00 05/31/17 10:28 Xarelto - PO 20 mg DAILY [facility] Administration Senna 2 tab 05/29/17 22:00 05/31/17 21:51 Senna - PO 2 tab HS [facility] Administration Tiotropium [place] 1 puff 05/30/17 10:00 05/31/17 15:39 Spiriva - IH 1 puff DAILY [facility] Administration ASSESSMENT/PLAN: 87yo F with PMHx of COPD on 2L home O2 and prednisone, 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 # Sepsis 2/2 infected L olecranon bursitis +MSSA -afebrile -leukocytosis: 12.7 --> 13.5 --> 15.2, trending up. But, looking back at chart, it appears that this is a chronic leukocytosis. -physical exam similar to yesterday -ready for D/C on keflex 500mg TID for 5 days Rest of care per medical team. Plan discussed with attending, Dr. Whitten. -Wander Arias MD PGY1 ID Team Visit type - Emergency Visit Emergency Visit: Yes ED Registration Date: 05/25/17 Care time: The patient presented to the Emergency Department on the above date and was hospitalized for further evaluation of their emergent condition. - New Patient This patient is new to me today: No - Critical Care Critical Care patient: No
[2017-06-01] MEDS: DOCUSATE SODIUM 100 MG CAPSULE (FP) PO SCH (11:12)
[2017-06-01] MEDS: FERROUS SO4 325 MG TABLET (FP) PO SCH (11:12)
[2017-06-01] MEDS: MEMANTINE HCL 10 MG TABLET (FP) PO SCH (11:12)
[2017-06-01] MEDS: DONEPEZIL HCL 10 MG TABLET (FP) PO SCH (11:12)
[2017-06-01] MEDS: ESCITALOPRAM OXALATE 10 MG TABLET (FP) PO SCH (11:12)
[2017-06-01] MEDS: LORATADINE 10 MG TABLET PO SCH (11:12)
[2017-06-01] MEDS: OXYBUTYNIN CHLORIDE 5 MG TABLET PO SCH (11:12)
[2017-06-01] MEDS: GABAPENTIN 300 MG CAPSULE (FP) PO SCH (11:12)
[2017-06-01] MEDS: BUDESONIDE/FORMETEROL FUMARATE 80/4.5 mcg INHALER IH SCH (11:13)
[2017-06-01] MEDS: TIOTROPIUM BROMIDE 18 MCG/INH (DEVICE W/ 5 CAPSULES) IH SCH (11:13)
[2017-06-01] MEDS: RIVAROXABAN 20 MG TABLET PO SCH (11:13)
[2017-06-01] MEDS: predniSONE 5 MG TABLET (UD) PO SCH (11:13)
[2017-06-01] MEDS: POLYETHYLENE GLYCOL 3350 119 GM BTL PO SCH (11:14)
--- NOTE | 2017-06-01 11:14 | PN ---
Teaching Attending Note Name of Resident: Wander Arias ATTENDING PHYSICIAN STATEMENT I saw and evaluated the patient. I reviewed the resident's note and discussed the case with the resident. I agree with the resident's findings and plan as documented. SUBJECTIVE:Still on Cefazolin now 7 days inpatient OBJECTIVE:Minimal erthyema some generalized swelling ASSESSMENT AND PLAN:Olecranon bursitis MSSA Ready for discharge on oral Keflex 500 tid for 5 days Leukocytosis appears chronic going back for some time ! Maria Dolores SHIRLEY
--- NOTE | 2017-06-01 11:56 | PN ---
Progress Note (short form) - Note Progress Note: PULMONARY Arm continues to improve. No fevers or chills. Denies arm pain. Denies shortness of breath or chest pain. Last Vital Signs Temp Pulse Resp BP Pulse Ox 98.4 F 73 20 149/73 96 06/01/17 07:05 06/01/17 07:05 06/01/17 07:05 06/01/17 07:05 05/31/17 21:00 Gen: NAD at rest Heart: RRR Lung: decreased breath sounds at the bases Abd: soft, nontender Ext: LUE edema, less erythema, nontender CBC, BMP 06/01/17 08:20 06/01/17 08:20 Active Medications Acetaminophen (Tylenol -) 650 mg PO Q6H PRN PRN Reason: PAIN Albuterol Sulfate (Ventolin Hfa Inhaler -) 1 - 2 puff IH QID PRN PRN Reason: SHORT OF BREATH/WHEEZING Last Admin: 05/31/17 10:27 Dose: 1 puff Alprazolam (Xanax -) 0.25 mg PO Q8H PRN PRN Reason: ANXIETY Last Admin: 05/31/17 21:52 Dose: 0.25 mg Atorvastatin Calcium (Lipitor -) 10 mg PO HS [facility] Last Admin: 05/31/17 21:52 Dose: 10 mg Budesonide/Formoterol Fumarate (Symbicort 80/4.5mcg -) 2 puff IH BID [facility] Last Admin: 06/01/17 11:13 Dose: 2 puff Diltiazem HCl (Cardizem Cd -) 240 mg PO DAILY@1200 [facility] Last Admin: 06/01/17 11:12 Dose: 240 mg Docusate Sodium (Colace -) 200 mg PO DAILY@1200 [facility] Last Admin: 06/01/17 11:12 Dose: 200 mg Donepezil HCl (Aricept -) 10 mg PO DAILY@1200 [facility] Last Admin: 06/01/17 11:12 Dose: 10 mg Escitalopram Oxalate (Lexapro -) 10 mg PO DAILY@1200 [facility] Last Admin: 06/01/17 11:12 Dose: 10 mg Ferrous Sulfate (Feosol -) 325 mg PO DAILY@1100 [facility] Last Admin: 06/01/17 11:12 Dose: 325 mg Gabapentin (Neurontin -) 300 mg PO BID@1200,2200 [facility] Last Admin: 06/01/17 11:12 Dose: 300 mg Cefazolin Sodium/Dextrose (Ancef 2 Gm Premixed Ivpb -) 2 gm in 50 mls @ 200 mls /hr IVPB Q8H-IV [facility] Last Admin: 06/01/17 11:11 Dose: 200 mls/hr Levothyroxine Sodium (Synthroid -) 75 mcg PO DAILY@0700 [facility] Last Admin: 06/01/17 06:32 Dose: 75 mcg Loratadine (Claritin -) 10 mg PO DAILY [facility] Last Admin: 06/01/17 11:12 Dose: 10 mg Memantine (Namenda -) 10 mg PO BID [facility] Last Admin: 06/01/17 11:12 Dose: 10 mg Oxybutynin Chloride (Ditropan -) 5 mg PO DAILY@1200 [facility] Last Admin: 06/01/17 11:12 Dose: 5 mg Polyethylene Glycol (Miralax (For Daily Use) -) 17 gm PO DAILY@1200 [facility] Last Admin: 06/01/17 11:14 Dose: 17 gm Prednisone (Deltasone -) 15 mg PO DAILY [facility] Last Admin: 06/01/17 11:13 Dose: 15 mg Rivaroxaban (Xarelto -) 20 mg PO DAILY [facility] Last Admin: 06/01/17 11:13 Dose: 20 mg Senna (Senna -) 2 tab PO HS [facility] Last Admin: 05/31/17 21:51 Dose: 2 tab Tiotropium [place] (Spiriva -) 1 puff IH DAILY [facility] Last Admin: 06/01/17 11:13 Dose: 1 puff A/P Cellulitis Left Olecranon Bursitis Sepsis COPD/Asthma Churg Eugenie Syndrome Chronic Hypoxic Respiratory Failure HTN DM h/o Lymphoma h/o DVT - ID input appreciated, can change antibiotics to PO - pain control - continue anticoagulation - OOB to chair if possible - inhaled bronchodilators - O2 to keep SpO2 >90% - d/c planning
--- NOTE | 2017-06-01 17:08 | PN ---
Teaching Attending Note Name of Resident: Harini Hernadez ATTENDING PHYSICIAN STATEMENT I saw and evaluated the patient. I reviewed the resident's note and discussed the case with the resident. I agree with the resident's findings and plan as documented. SUBJECTIVE:asymptomatic. denies Cp, SOB, fever, chills, N/V/C/D OBJECTIVE: Last Vital Signs Temp Pulse Resp BP Pulse Ox 98.6 F 80 20 120/58 96 06/01/17 16:07 06/01/17 16:07 06/01/17 16:07 06/01/17 16:07 05/31/17 21:00 General NAD Extremities LUE minimal swelling at olenecron. small laceration with serous drainage. area is not tender or flucuation. full ROM. erythema and swelling has resolved. ASSESSMENT AND PLAN: 87yo F wtih PMH Churg Eugenie, COPD on home O2, NHL, DVT on Xarelto, hypothyroid presnted to the ER with pain and swelling LUE after mechanical fall 2 weeks ago 1. Sepsis due to L olecranon bursitis with abscess-+MSSA s/p drainage 05/26 and 05/28. improved. swelling and erythema mostly resolved. slight uptrend in leukocytosis but remains afebrile. can switch cefazolin to keflex for addiitonal 5 days per ID. cont warm soaks and elevation. ID and ortho on board. 2. hypoposphatemia- resolved 3. Anemia- no signs of active bleeding. iron studies indicative of iron def anemia. started on iron supplementation 4. DVT on xarelto 5. NHL- hold cellcept 6. Hypothyroid- on Lt4 7. DVT ppx- on xarelto 8. d/c home on keflex
[2017-06-01 17:17] VITALS: BP 107/74; PULSE 91; TEMP 98.4
--- NOTE | 2017-06-01 19:03 | DS ---
Physical Exam: SUBJECTIVE: Patient seen and examined. Doing well. No complaints. OBJECTIVE: Vital Signs Period Temp Pulse Resp BP Sys/Bahena Pulse Ox Last 24 Hr 98.4 F-98.9 F 73-92 18-20 107-150/58-75 96 PHYSICAL EXAM GEN: Awake, alert, not oriented to place and month, but responds to questions HEENT: PERRLA, EOMi, no cervical LAD CV: S1, S2, 2/6 systolic murmur LUNG: Decreased air entry, no crackles ABD: Soft, NT, ND MSK: Worsening erythema, edema is resolving with intermittent elevation. On olecranon, still fluculent, mild drainage. Still able to passively and actively lift L arm. 2+ pulses. NEURO: Facial symmetry, MSK and sensation intact LABS Laboratory Last Values WBC 15.2 K/mm3 (4.0-10.0) H 06/01/17 08:20 RBC 3.36 M/mm3 (3.60-5.2) L 06/01/17 08:20 Hgb 8.7 GM/dL (10.7-15.3) L 06/01/17 08:20 Hct 28.4 % (32.4-45.2) L 06/01/17 08:20 MCV 84.6 fl (80-96) 06/01/17 08:20 MCH 26.0 pg (25.7-33.7) 06/01/17 08:20 MCHC 30.7 g/dl (32.0-36.0) L 06/01/17 08:20 RDW 16.1 % (11.6-15.6) H 06/01/17 08:20 Plt Count 425 K/MM3 (134-434) 06/01/17 08:20 MPV 8.1 fl (7.5-11.1) 06/01/17 08:20 Total Counted 100 05/27/17 09:04 Neutrophils % 72.3 % (42.8-82.8) 05/30/17 06:45 Neutrophils % (Manual) 80.0 % (42.8-82.8) 05/27/17 09:04 Band Neutrophils % 9.0 % 05/27/17 09:04 Lymphocytes % 14.3 % (8-40) D 05/30/17 06:45 Lymphocytes % (Manual) 6.0 % (8-40) L 05/27/17 09:04 Monocytes % 11.7 % (3.8-10.2) H 05/30/17 06:45 Monocytes % (Manual) 5 % (3.8-10.2) 05/27/17 09:04 Eosinophils % 1.5 % (0-4.5) D 05/30/17 06:45 Basophils % 0.2 % (0-2.0) 05/30/17 06:45 Manual Slide Review No Result Required. 05/27/17 06:00 Platelet Estimate Adequate 05/27/17 09:04 Platelet Comment No clumping noted 05/27/17 09:04 ESR 47 mm/hr (0-30) H 05/26/17 06:00 PT with INR 11.20 SEC (9.98-11.88) 05/28/17 06:10 INR 0.99 (0.82-1.09) 05/28/17 06:10 PTT (Actin FS) 27.7 SECONDS (26.9-34.4) 05/25/17 11:54 VBG pH 7.37 (7.32-7.42) 05/25/17 11:54 POC VBG pCO2 60.9 mmHg (38-52) H* 05/25/17 11:54 POC VBG pO2 19.9 mmHg (28-48) L* D 05/25/17 11:54 Mixed VBG HCO3 34.6 meq/L (19-25) H 05/25/17 11:54 Sodium 144 mmol/L (136-145) 06/01/17 08:20 Potassium 3.8 mmol/L (3.5-5.1) 06/01/17 08:20 Chloride 104 mmol/L (98-107) 06/01/17 08:20 Carbon Dioxide 37 mmol/L (21-32) H 06/01/17 08:20 Anion Gap 3 (8-16) L 06/01/17 08:20 BUN 23 mg/dL (7-18) H D 06/01/17 08:20 Creatinine 0.7 mg/dL (0.55-1.02) 06/01/17 08:20 Creat Clearance w eGFR > 60 (>60) 05/31/17 06:50 POC Glucometer 144 UNITS (80-120) 06/01/17 18:03 Random Glucose 78 mg/dL (74-106) 06/01/17 08:20 Lactic Acid 0.8 mmol/L (0.4-2.0) 05/25/17 11:54 Calcium 8.7 mg/dL (8.5-10.1) 06/01/17 08:20 Phosphorus 1.9 mg/dL (2.5-4.9) L 05/30/17 06:45 Magnesium 2.2 mg/dL (1.8-2.4) 05/30/17 06:45 Iron 8 ug/dL (27-139) L 05/26/17 06:00 TIBC 248 ug/dL (250-450) L 05/26/17 06:00 Iron Saturation 3 % (15-55) L 05/26/17 06:00 Transferrin 224 mg/dL (200-370) 05/26/17 06:00 Ferritin 34.807 ng/ml (6.9-282.5) 05/26/17 06:00 Total Bilirubin 0.4 mg/dL (0.2-1.0) D 05/31/17 06:50 AST 18 U/L (15-37) 05/31/17 06:50 ALT 15 U/L (12-78) 05/31/17 06:50 Alkaline Phosphatase 56 U/L (45-117) 05/31/17 06:50 Creatine Kinase 63 IU/L (26-192) 05/25/17 11:54 Troponin I < 0.02 ng/ml (0.00-0.05) 05/25/17 11:54 C-Reactive Protein 17.9 MG/DL (0.00-0.3) H 05/26/17 06:00 Total Protein 5.7 g/dl (6.4-8.2) L 05/31/17 06:50 Albumin 2.5 g/dl (3.4-5.0) L 05/31/17 06:50 Urine Color Dkyellow 05/26/17 06:55 Urine Appearance Slcloudy 05/26/17 06:55 Urine pH 5.0 (5.0-8.0) D 05/26/17 06:55 Ur Specific [place] 1.024 (1.001-1.035) 05/26/17 06:55 Urine Protein 1+ (NEGATIVE) H 05/26/17 06:55 Urine Glucose (UA) Negative (NEGATIVE) 05/26/17 06:55 Urine Ketones Negative (NEGATIVE) 05/26/17 06:55 Urine Blood Negative (NEGATIVE) 05/26/17 06:55 Urine Nitrite Negative (NEGATIVE) 05/26/17 06:55 Urine Bilirubin Negative (NEGATIVE) 05/26/17 06:55 Urine Urobilinogen Negative mg/dL (0.2-1.0) 05/26/17 06:55 Ur Leukocyte Esterase Negative (NEGATIVE) 05/26/17 06:55 Urine WBC (Auto) 17 /hpf (3-5) 05/26/17 06:55 Urine RBC (Auto) 2 /hpf (0-3) 05/26/17 06:55 Ur Epithelial Cells Rare /HPF (FEW) 05/26/17 06:55 Urine Mucus Moderate 05/26/17 06:55 Vancomycin Pre-Dose 6.575 ug/ml (5.0-10.0) 05/27/17 10:35 Blood Type A NEGATIVE 05/25/17 11:54 Antibody Screen Negative 05/25/17 11:54 HOSPITAL COURSE: Date of Admission:05/25/17 Date of Discharge: 06/01/17 Briefly, Ms Carter is a 87yo F with an extensive PMhx including Alzheimers dementia, COPD on home O2 2L, and 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 She is poor historian and daughter is at bedside. Patient sustained witnessed mechanical fall 10 days, and sustained a mild open injury to L elbow. The pain's elbow pain had subsequently improved, however today the patient noted swelling and redness near the area. Pt also endorses had fevers, and changes in the patient' s mental status such as decreased oral intake, decreased conversational speech. In the ER, the patient was noted to have a fever Tmax 101.1, tachycardic (100- 110s), with elevated WBC (21k, compared to baseline ~10). Since she is immunocompromised, concern arose for infection. She was started on Vancomycin and Zosyn. X-rays of the elbow were negative for fracture/bone destruction; Positive for left elbow, ulnar swelling. Orthopedic surgery was notified. She was diagnosed with infected bursitis. During the hospital course, the patient received an I&D on 05/28 revealing purulent fluid. Cultures grew +MSSA. The patient completed a 7 day course of IV Cefazolin. She improved during the hospital course with warm compresses and elevation Her WBC remained slightly elevated though the patient has baseline leukocytosis from daily prednisone. She was also incidentally found to have a L brachial DVT. She will be continued on Xarelto. 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 You had an incision and drainage and were started on antibiotics. You have improved - You were also found to have a deep venous thrombus in your left arm - Please keep your left arm elevated to prevent swelling of the hands - Please keep fall precautions so as to avoid another fall - Please keep your elbow wrapped so as to prevent another infection - If you have any fevers, chills, chest pain or severe shortness of breath please come back to the ER - Please have a followup CBC in 1 week to check your white blood cell count MEDICATION CHANGES: - START taking Keflex 500mg tablets three times a day for your elbow - START taking Ferrous Sulfate for your Iron Deficiency Anemia - Please continue taking your Xarelto daily - You can restart taking your Cellcept FOLLOWUPS: - Dr. Sabino Real (Orthopedic Surgeon) - followup in 1 week to assess healing of elbow - Dr. Mehta (Primary Care Doctor) - followup in 2 weeks for regular appointment Referrals: Kurt Mehta MD [Primary Care Provider] - 2 Weeks Sabino Real MD [Staff Physician] - 1 Week Disposition: ALF FACILITY - Home Medications Comprehensive Discharge Medication List: Ambulatory Orders Aa/Hydrolyzed Collagen, Whey [Lps 15-30 Liquid] 30 ml PO DAILY 01/12/17 Acetaminophen [Tylenol] 650 mg PO QID PRN 01/12/17 Albuterol Sulfate [Proventil HFA Inhaler -] 1 - 2 inh PO QID PRN 01/12/17 Alprazolam [Xanax] 0.25 mg PO TID 01/12/17 Aspirin [Children's Aspirin] 81 mg PO DAILY 01/12/17 Atorvastatin Ca [Lipitor] 10 mg PO HS 01/12/17 Calcium Carbonate/Vitamin D3 [Oyster Shell 500-Vit D3 200 Tb] 1 each PO BID@1200 ,2200 01/12/17 Diltiazem Cd [Cardizem Cd -] 240 mg PO DAILY@119901/12/17 Docusate Sodium 200 mg PO DAILY@119901/12/17 Donepezil HCl [Aricept] 10 mg PO DAILY@119901/12/17 Escitalopram Oxalate [Lexapro -] 10 mg PO DAILY@119901/12/17 Gabapentin 300 mg PO BID@1200,219901/12/17 Levothyroxine [Synthroid -] 75 mcg PO DAILY@119901/12/17 Loratadine [Allergy] 10 mg PO DAILY 01/12/17 Memantine HCl [Namenda -] 10 mg PO BID 01/12/17 Multivitamin with Iron [Daily Mabel with Iron] 1 each PO DAILY 01/12/17 Mycophenolate Mofetil [Cellcept] 500 mg PO DAILY 01/12/17 Olopatadine HCl [Pataday] 1 ml OU DAILY 01/12/17 Oxybutynin Chloride [Oxybutynin Chloride ER] 5 mg PO DAILY@119901/12/17 Polyethylene Glycol 3350 [Miralax 119 gm Btl -] 17 gm PO DAILY@119901/12/17 Sennosides [Senna] 17.2 mg PO HS 01/12/17 Budesonide/Formeterol Fumarate [SYMBICORT 80/4.5mcg -] 2 puff IH BID #1 inhaler 01/17/17 Tiotropium [place] [Spiriva] 18 mcg IH DAILY 03/16/17 Prednisone 15 mg PO DAILY #20 tablet 04/18/17 Rivaroxaban [Xarelto -] 20 mg PO DAILY #14 tablet 04/18/17 Ferrous Sulfate [Feosol] 325 mg PO DAILY@1100 #30 tab 05/30/17 Cephalexin [Keflex] 500 mg PO TID #15 capsule 06/01/17 Miscellaneous Drug Not In Syst [Outpatient Lab Test] 1 each ASDIR #1 misc This patient is new to me today: No Emergency Visit: No Critical Care patient: No - Discharge Referral Referred to [facility] No
== END 2017-06-01 19:52 | DRG 872 ==
LOC: JER 11:16 → JERBED 13:18 → UNDOADMIN 13:18 → JERBED 14:49 → UNDOADMIN 14:49 → J4S 17:29 → J8W 05-29 18:15
PROVIDERS: ADMIT Hospitalist; ATTEND Internal Medicine
PROC: 0M943ZX Drainage of Left Elbow Bursa and Ligament, Percutaneous Approach, Diagnostic (ICD-10-PCS; principal; 2017-05-26)
PROC: 0M943ZX Drainage of Left Elbow Bursa and Ligament, Percutaneous Approach, Diagnostic (ICD-10-PCS; 2017-05-28)
DX: A41.9 Sepsis, unspecified organism (principal); M00.9 Pyogenic arthritis, unspecified; L03.114 Cellulitis of left upper limb; C85.90 Non-Hodgkin lymphoma, unspecified, unspecified site; M30.1 Polyarteritis with lung involvement [Churg-Strauss]; I82.721 Chronic embolism and thrombosis of deep veins of right upper extremity; M31.30 Wegener's granulomatosis without renal involvement; I82.612 Acute embolism and thrombosis of superficial veins of left upper extremity; J96.11 Chronic respiratory failure with hypoxia; I10 Essential (primary) hypertension; J44.9 Chronic obstructive pulmonary disease, unspecified; S59.802A Other specified injuries of left elbow, initial encounter; W01.0XXA Fall on same level from slipping, tripping and stumbling without subsequent striking against object, initial encounter; Y93.89 Activity, other specified; Y92.89 Other specified places as the place of occurrence of the external cause; Y99.8 Other external cause status; E03.9 Hypothyroidism, unspecified; Z87.891 Personal history of nicotine dependence; M70.22 Olecranon bursitis, left elbow; Z99.81 Dependence on supplemental oxygen; I25.10 Atherosclerotic heart disease of native coronary artery without angina pectoris; K21.9 Gastro-esophageal reflux disease without esophagitis; D64.9 Anemia, unspecified; G30.9 Alzheimer's disease, unspecified; F02.80 Dementia in other diseases classified elsewhere, unspecified severity, without behavioral disturbance, psychotic disturbance, mood disturbance, and anxiety; E87.6 Hypokalemia; E83.51 Hypocalcemia; E88.09 Other disorders of plasma-protein metabolism, not elsewhere classified; E78.5 Hyperlipidemia, unspecified; E83.39 Other disorders of phosphorus metabolism; Z79.01 Long term (current) use of anticoagulants; Z90.2 Acquired absence of lung [part of]; N32.81 Overactive bladder; F41.9 Anxiety disorder, unspecified; F32.9 Major depressive disorder, single episode, unspecified; Z51.89 Encounter for other specified aftercare; I27.20 Pulmonary hypertension, unspecified; Z22.321 Carrier or suspected carrier of Methicillin susceptible Staphylococcus aureus; K59.00 Constipation, unspecified
CPT/HCPCS: 36415; 71010-TC; 73070-TC-LT; 73090-TC-LT; 73221-TC-LT; 80048; 80053; 81003; 81015; 82550; 82728; 82803; 83540; 83550; 83605; 83735; 84100; 84466; 84484; 85025; 85027; 85610; 85651; 85730; 86140; 86850; 86900; 86901; 87040; 87070; 87075; 87086; 87186; 87205; 93005; 93010; 93970-TC; 93971; 97116-GP; 97161-GP; 99283-25; G0480

== ENCOUNTER 2017-06-09 15:40 | Inpatient (IN) | payer OTHER ==
--- NOTE | 2017-06-09 17:57 | PDOC ---
History of Present Illness - History of Present Illness Initial Comments: 06/09/17 19:41 87yo woman, who is a longterm resident with PMH of AD, COPD (on home 2L O2) , NHL, Churgg Eugenie (on Mycophenalate), L brachial DVT (on Xarelto) who presents s/p witnessed mechanical fall earlier today. Per her daughter Chapis ( [phone]) she was ambulating with her walker when her L leg buckled and she fell to the floor, landing on her L left. Daughter denies LOC or that the patient hit her head. The patient has no recollection of the event earlier today. Currently, pt states she is not in any pain. Patient was recently admitted here 05/29-06/01 for L MSSA+ bursitis s/p I&D with a completed 7 day course of IV Cefazolin. 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, anxiety) Thyroid Disease: Yes (hypothyroid) - Surgical History Lung Surgery: Yes - Immunization History Td Vaccination: (unknown) Immunization Up to Date: Yes - Suicide/Smoking/Psychosocial Hx Smoking Status: No Smoking History: Never smoked Years of Tobacco Use: 40 Have you smoked in the past 12 months: No Number of Cigarettes Smoked Daily: 0 If you are a former smoker, when did you quit?: 45 years ago Cigars Per Day: 0 Information on smoking cessation initiated: No Hx Alcohol Use: No Drug/Substance Use Hx: No Substance Use Type: None Hx Substance Use Treatment: No <Oly Ramirez - Last Filed: 06/09/17 19:49> <Neftaly Espinosa - Last Filed: 06/12/17 13:54> - Past Medical History Allergies/Adverse Reactions: Allergies Allergy/AdvReac Type Severity Reaction Status Date / Time levofloxacin [From Levaquin] AdvReac Unknown Itching Verified 06/09/17 16:07 Home Medications: Ambulatory Orders Aa/Hydrolyzed Collagen, Whey [Lps Neutral Flavor Liquid] 960 ml PO DAILY Acetaminophen [Mapap] 650 mg PO QID PRN 06/09/17 Albuterol Sulfate [Proventil HFA Inhaler -] 1 - 2 inh PO QID 06/09/17 Alprazolam [Xanax] 0.25 mg PO DAILY 06/09/17 Aspirin [ASA -] 81 mg PO DAILY 06/09/17 Atorvastatin Ca [Lipitor] 10 mg PO HS 06/09/17 Bacitracin - [Bacitracin Topical Ointment -] 1 applic TP DAILY 06/09/17 Budesonide/Formeterol Fumarate [SYMBICORT 80/4.5mcg -] 1 inh PO BID 06/09/17 Calcium Carbonate/Vitamin D3 [Oyster Shell 500-Vit D3 200 Tb] 1 each PO BID 02/16 Diltiazem Cd [Cardizem Cd -] 240 mg PO DAILY 06/09/17 Docusate Sodium [Colace -] 200 mg PO DAILY 06/09/17 Donepezil HCl [Aricept] 10 mg PO DAILY 06/09/17 Escitalopram Oxalate [Lexapro -] 10 mg PO DAILY 06/09/17 Ferrous Sulfate 325 mg PO DAILY 06/09/17 Gabapentin 300 mg PO DAILY 06/09/17 Gabapentin 600 mg PO HS 06/09/17 Loratadine 10 mg PO DAILY 06/09/17 Memantine HCl [Namenda -] 10 mg PO BID 06/09/17 Mycophenolate Mofetil [Cellcept] 500 mg PO DAILY 06/09/17 Olopatadine HCl [Pataday] 2.5 ml OP DAILY 06/09/17 Oxybutynin Chloride 5 mg PO DAILY 06/09/17 Polyethylene Glycol 3350 [Miralax (For Daily Use) -] 17 gm PO DAILY 06/09/17 Prednisone 15 mg PO DAILY 06/09/17 Rivaroxaban [Xarelto -] 20 mg PO DAILY 06/09/17 Sennosides/Docusate Sodium [Senna Laxative Tablet] 2 each PO HS 06/09/17 Tiotropium [place] [Spiriva] 1 inh PO DAILY 06/09/17 *Physical Exam - Vital Signs Last Vital Signs Temp Pulse Resp BP Pulse Ox 100.8 F H 113 H 20 112/74 100 06/09/17 15:57 06/09/17 15:57 06/09/17 15:57 06/09/17 15:57 06/09/17 15:57 - Physical Exam General Appearance: Yes: Nourished, Appropriately Dressed HEENT: positive: Normal ENT Inspection Neck: positive: Supple. negative: Lymphadenopathy (R), Lymphadenopathy (L) Respiratory/Chest: positive: Lungs Clear, Normal Breath Sounds Cardiovascular: positive: Regular Rhythm, Regular Rate, S1, S2 Vascular Pulses: Dorsalis-Pedis (R): 2+, Doralis-Pedis (L): 2+ Gastrointestinal/Abdominal: positive: Normal Bowel Sounds, Soft. 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 NML intact (oriented x1 (to self)), Alert <Oly Ramirez - Last Filed: 06/09/17 19:49> - Vital Signs Last Vital Signs Temp Pulse Resp BP Pulse Ox 98.2 F 109 H 22 114/77 96 06/12/17 06:00 06/12/17 06:00 06/12/17 06:00 06/12/17 06:00 06/11/17 09:00 <Neftaly Espinosa - Last Filed: 06/12/17 13:54> ED Treatment Course - LABORATORY CBC & Chemistry Diagram: 06/09/17 18:50 06/09/17 18:50 <Oly Ramirez - Last Filed: 06/09/17 19:49> - LABORATORY CBC & Chemistry Diagram: 06/12/17 06:30 06/11/17 06:20 - ADDITIONAL ORDERS Additional order review: 06/09/17 20:52 Blood Culture - Preliminary Blood - Peripheral Venous NO GROWTH OBTAINED AFTER 48 HOURS, INCUBATION TO CONTINUE FOR 3 DAYS. 06/09/17 20:52 Blood Culture - Preliminary Blood - Peripheral Venous NO GROWTH OBTAINED AFTER 48 HOURS, INCUBATION TO CONTINUE FOR 3 DAYS. 06/10/17 04:10 Urine Culture - Final Urine - Urine Clean Catch NO GROWTH OBTAINED 06/10/17 04:15 Influenza Types A,B Antigen (NATHAN) - Final Nasopharyngeal Swab - Final 06/09/17 18:50 RBC 3.37 L MCV 84.2 MCHC 31.3 L RDW 17.2 H MPV 8.2 Neutrophils % 88.1 H D Lymphocytes % 5.4 L D Monocytes % 5.8 Eosinophils % 0.1 D Basophils % 0.6 - RADIOLOGY Radiology Studies Ordered: Category Date Time Status KNEE 3 POS-LEFT [RAD] Stat Radiology 06/09/17 19:45 Completed PELVIS [RAD] Stat Radiology 06/09/17 19:45 Completed - Medications Given in the ED: ED Medications Discontinued Medications Generic Name Dose Route Start Last Admin Trade Name Freq PRN Reason Stop Dose Admin Acetaminophen 1,000 mg 06/09/17 19:56 06/09/17 21:56 Ofirmev Injection - IVPB 06/09/17 19:57 1,000 mg ONCE ONE Administration Guaifenesin 10 ml 06/12/17 07:33 06/12/17 08:26 Robitussin Dm - PO 06/12/17 07:34 10 ml ONCE ONE Administration Heparin Sodium (Porcine) 5,000 unit 06/10/17 06:00 06/10/17 07:01 Heparin - SQ 5,000 unit TID BEVERLY Administration Sodium Chloride 500 mls @ 1,000 mls/hr 06/09/17 19:46 06/09/17 21:56 Normal Saline - IV 06/09/17 20:15 1,000 mls/hr ASDIR STA Administration Azithromycin 500 mg/ Dextrose 250 mls @ 250 mls/hr 06/09/17 23:59 06/10/17 04 :37 IVPB 06/10/17 00:58 250 mls/hr ONCE ONE Administration Sodium Chloride 1,000 mls @ 83 mls/hr 06/10/17 04:45 06/10/17 11:17 Normal Saline - IV Not Given ASDIR BEVERLY Vancomycin HCl 1,000 mg/ 250 mls @ 166.667 mls/hr 06/10/17 10:00 06/10/17 17: 16 Dextrose IVPB Not Given BID BEVERLY Azithromycin 500 mg/ Dextrose 250 mls @ 250 mls/hr 06/10/17 10:00 06/10/17 10 :52 IVPB Not Given DAILY BEVERLY Piperacillin/Tazobactam/Dextrose 4.5 gm in 100 mls @ 200 mls/hr 06/10/17 08: 00 06/10/17 10:51 Zosyn 4.5gm Ivpb (Premix) IVPB 06/10/17 08:29 Not Given ONCE ONE Piperacillin Sod/Tazobactam Sod 4.5 gm 06/09/17 23:45 06/10/17 02:31 Zosyn 4.5gm Ivpb (Pre-Docked) IVPB 06/09/17 23:46 4.5 gm ONCE ONE Administration Piperacillin Sod/Tazobactam Sod 4.5 gm 06/10/17 15:00 06/10/17 17:16 Zosyn 4.5gm Ivpb (Pre-Docked) IVPB Not Given Q6H-IV BEVERLY Potassium Chloride 40 meq 06/10/17 11:37 06/10/17 15:05 K-Dur - PO 06/10/17 11:38 40 meq ONCE ONE Administration Prednisone 15 mg 06/10/17 14:45 06/12/17 09:39 Deltasone - PO 15 mg DAILY BEVERLY Administration Prednisone 45 mg 06/12/17 11:45 06/12/17 12:40 Deltasone - PO Not Given DAILY BEVERLY Vancomycin HCl 1,000 mg 06/09/17 23:59 06/10/17 02:31 Vancomycin (Pre-Docked) IVPB 06/10/17 00:00 1,000 mg ONCE ONE Administration Protocol <Neftaly Espinosa - Last Filed: 06/12/17 13:54> Medical Decision Making - Medical Decision Making 06/09/17 20:07 87yo immunocompromised woman from a [place] with multiple recent falls who presents s /p witnessed fall and initial vital signs concerning for sepsis (tachycardia, fever 100.8F). Will intiate sepsis work-up and non-contrast head CT to r/o sdh or other intracranial process. 06/09/17 20:09 Sign-out given to incoming overnight resident. <Oly Ramirez - Last Filed: 06/09/17 19:49> *DC/Admit/Observation/Transfer <Oly Ramirez - Last Filed: 06/09/17 19:49> <Neftaly Espinosa - Last Filed: 06/12/17 13:54> Diagnosis at time of Disposition: Pneumonia - Discharge Dispostion Disposition: [facility] Condition at time of disposition: Stable
[2017-06-09 19:06] LABS: BASOPHIL 0.6 % (0-2.0); EOSINOPHIL 0.1 % (0-4.5); MCH 26.4 pg (25.7-33.7); MCHC 31.3 g/dl (32.0-36.0); MEAN CELL VOLUME 84.2 fl (80-96); MEAN PLT VOLUME 8.2 fl (7.5-11.1); NEUTROPHILS 88.1 % (42.8-82.8); PLATELET COUNT 378 K/MM3 (134-434); RDW 17.2 % (11.6-15.6); WHITE BLOOD COUNT 11.3 K/mm3 (4.0-10.0)
[2017-06-09 19:18] LABS: INR 2.39 (0.82-1.09)
--- NOTE | 2017-06-09 19:39 | PDOC ---
*Physical Exam - Vital Signs Patient's care is signed out to me by Dr. Ramirez at the beginning of my shift. She is an 87 YOF BIBA from SNF with h/o dementia, DVT on Xarelto, NHL, hypothyroid, COPD, Churg-Eugenie. Presented with GLF after her left leg gave out , falling onto her left leg and injuring the left knee. No LOC or head hit. Daughter is healthcare proxy and requested a call when some results are in , Chapis). Last Vital Signs Temp Pulse Resp BP Pulse Ox 100.8 F H 113 H 20 112/74 100 06/09/17 15:57 06/09/17 15:57 06/09/17 15:57 06/09/17 15:57 06/09/17 15:57 ED Treatment Course - LABORATORY CBC & Chemistry Diagram: 06/11/17 06:20 06/11/17 06:20 - ADDITIONAL ORDERS Additional order review: Laboratory Results 06/09/17 18:50 PT with INR 27.00 H INR 2.39 H D 06/09/17 18:50 RBC 3.37 L MCV 84.2 MCHC 31.3 L RDW 17.2 H MPV 8.2 Neutrophils % 88.1 H D Lymphocytes % 5.4 L D Monocytes % 5.8 Eosinophils % 0.1 D Basophils % 0.6 Medical Decision Making - Medical Decision Making 06/09/17 21:00 Spoke with Pt's daughter Chapis on the phone about lab results so far. X-rays done but not read at the time of this conversation. Chapis will be called overnight with any significant updates (i.e. emergencies). However if the patient is discharged home, admitted, or kept in the ED w/o issue she will be informed at 4am. 06/09/17 22:23 Lab called to notify of lactate 2.9. 06/09/17 23:58 CXR shows e/o PNA 06/10/17 02:[address] Rai regarding the patient. Will page Dr. Beauchamp once more. 06/10/17 02:[address] Beauchamp who states they admit to hospitalists. [facility] is microblogged, patient to be admitted. Will draw repeat lactate, flu swab, and straight cath for UA. *DC/Admit/Observation/Transfer Diagnosis at time of Disposition: Pneumonia - Discharge Dispostion Condition at time of disposition: Stable Admit: Yes - Referrals - Patient Instructions - Post Discharge Activity
[2017-06-09] MEDS ORDERED: SODIUM CHLORIDE 500 ML IV STA (19:46)
--- NOTE | 2017-06-09 19:49 | PDOC ---
Attending Attestation - Resident Resident Name: Oly Ramirez - ED Attending Attestation I have performed the following: I have examined & evaluated the patient, The case was reviewed & discussed with the resident, I agree w/resident's findings & plan, Exceptions are as noted - HPI HPI: 06/09/17 19:50 87 F with h/o CAD, COPD/asthma on 2L home O2 , Alzheimers dementia, non hodgkins lymphoma, lung CA, HTN, HLD, GERD, hypothyroidism, DVT on xarelto, presenting to ER with fall. Per daughter, pt was ambulating when her left leg gave out from under her. She fell onto her knee but did not hit her head or lose consciousness. Pt was subsequently brought to ER. Pt is very poor historian and has no recollection of the event. She denies all complaints at this time. In ER, pt was found to be febrile. Pt denies subjective fevers or chills. Denies cough. Denies abdominal pain/N/V/D. Denies dysuria. - Physicial Exam PE: 06/09/17 19:53 "GENERAL: Awake, alert, in no acute distress HEAD: No signs of trauma EYES: PERRLA, EOMI, sclera anicteric, conjunctiva clear ENT: Auricles normal inspection, hearing grossly normal, nares patent, oropharynx clear without exudates. Moist mucosa NECK: Nontender, no stepoffs, Normal ROM, supple, no lymphadenopathy, JVD, or masses LUNGS: Breath sounds equal, clear to auscultation bilaterally. No wheezes, and no crackles HEART: Regular rate and rhythm, normal S1 and S2, no murmurs, rubs or gallops ABDOMEN: Soft, nontender, normoactive bowel sounds. No guarding, no rebound. No masses EXTREMITIES: L knee with moderate effusion, no bony tenderness NEUROLOGICAL: Cranial nerves II through XII intact. 5/5 strength and sensation in all extremities, Normal speech SKIN: Warm, Dry, normal turgor, no rashes or lesions noted. " - Medical Decision Making 06/09/17 19:54 87 F presenting with likely mechanical, also found to be febrile and tachycardic in ER. With regards to fall, it was witnessed by daughter and does not appear to be a syncopal episode. Pt with mild L knee effusion, no other signs of trauma on exam. Pt's fever is of unclear etiology at this time, as pt has clinical signs of infection. - Labs, cultures, lactate - CTH for fall on xarelto - CXR, UA, flu swab - L knee XR
[2017-06-09] MEDS ORDERED: ACETAMINOPHEN 1000 MG/100 ML VIAL (NON FORMULARY) IVPB ONE (19:56)
[2017-06-09 20:01] LABS: ALBUMIN 2.8 g/dl (3.4-5.0); ANION GAP 4 (8-16); CALCIUM 8.8 mg/dL (8.5-10.1); CO2 36 mmol/L (21-32); GLUCOSE,RANDOM 130 mg/dL (74-106)
[2017-06-09 20:04] LABS: ALK PHOS 67 U/L (45-117); BILIRUBIN,TOTAL 0.2 mg/dL (0.2-1.0); CREATININE 0.9 mg/dL (0.55-1.02); SGOT/AST 21 U/L (15-37); SGPT/ALT 19 U/L (12-78); TOT PROT 6.2 g/dl (6.4-8.2)
[2017-06-09] MEDS ORDERED: ACETAMINOPHEN INJECTION 100 ML IVPB ONE (21:41)
[2017-06-09 21:42] LABS: VENOUS PH 7.42 (7.32-7.42)
[2017-06-09 21:43] LABS: VENOUS BLOOD GAS HCO3 34.6 meq/L (19-25)
[2017-06-09 22:00] LABS: CPK 30 IU/L (26-192); TROPONIN I < 0.02 ng/ml (0.00-0.05)
[2017-06-09] MEDS ORDERED: PIPERACILLIN/TAZOB 4.5 GM/100 ML PRE-DOCKED IVPB ONE (23:45)
[2017-06-09] MEDS ORDERED: VANCOMYCIN 1 GRAM (PRE-DOCKED) 1,000 MG/250 ML BAG IVPB ONE (23:59)
[2017-06-09] MEDS ORDERED: AZITHROMYCIN IVPB 500 MG in DEXTROSE 5%-WATER - 250 ML IVPB ONE (23:59)
[2017-06-10] MEDS ORDERED: AZITHROMYCIN IVPB 250 ML IVPB ONE (01:57)
[2017-06-10] MEDS ORDERED: VANCOMYCIN 1 GRAM (PRE-DOCKED) 1,000 MG/250 ML BAG IVPB ONE (01:58)
[2017-06-10] MEDS ORDERED: PIPERACILLIN/TAZOB 4.5 GM 4.5 GM/100 ML BAG IVPB ONE ×2 (01:58→08:00)
[2017-06-10 04:24] LABS: URINE APPEARANCE SLCLOUDY; URINE BILIRUBIN NEGATIVE (NEGATIVE); URINE BLOOD NEGATIVE (NEGATIVE); URINE COLOR YELLOW; URINE GLUCOSE (UA) 1+ (NEGATIVE); URINE KETONE NEGATIVE (NEGATIVE); URINE LEUK ESTERASE NEGATIVE (NEGATIVE); URINE NITRITE NEGATIVE (NEGATIVE); URINE PROTEIN NEGATIVE (NEGATIVE); URINE UROBILINOGEN NEGATIVE mg/dL (0.2-1.0)
[2017-06-10] MEDS ORDERED: ACETAMINOPHEN 325 MG TABLET (FP) PO PRN (04:41)
[2017-06-10] MEDS ORDERED: SODIUM CHLORIDE 1,000 ML IV SCH (04:45)
--- NOTE | 2017-06-10 05:08 | HP ---
CHIEF COMPLAINT: S/P mechanical fall PCP: Dr. Mehta HISTORY OF PRESENT ILLNESS: Patient is poor historian. Information obtained from ED staff and medical records Patient is an 87 year old female with a PMHx OF Alzheimer's dementia, HTN, HLD, GERD, hypothyroidism, NHL, COPD on 02, Churgg Eugenie disease, DVT on xarelto who was BIBEMS from [facility] due s/p mechanical fall. Patient's daughter reports she was ambulating when all of a sudden her "leg gave out on her" and she fell directly on her knee with knee trauma, direct hit, or injury to the head. Patient is unable to recall the events. Otherwise, patient denies any nausea, vomiting, abdominal pain, chest pain, shortness of breath, fevers, chills, dysuria, hematuria. Patient in the ED was found to be septic to have tachycardia, leukocytosis, and febrile. CXR revealed consolidation. On further history patient does report having a cough with clear sputum. 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, Anxiety, depression, and overactive bladder PAST SURGICAL HISTORY: L lung lobectomy Social History: Smoking: former smoker, smoked for 40 years years Alcohol: none Drugs: none Family History: No known Allergies: levofloxacin [From Levaquin] Adverse Reaction (Unknown, Verified 05/19 05:53) Itching Home Medications Medication Instructions Recorded Aa/Hydrolyzed Collagen, Whey [Lps 960 ml PO DAILY 06/09/17 Neutral Flavor Liquid] Acetaminophen [Mapap] 650 mg PO QID PRN 06/09/17 Albuterol Sulfate [Proventil HFA 1 - 2 inh PO QID 06/09/17 Inhaler -] Alprazolam [Xanax] 0.25 mg PO DAILY 06/09/17 Aspirin [ASA -] 81 mg PO DAILY 06/09/17 Atorvastatin Ca [Lipitor] 10 mg PO HS 06/09/17 Bacitracin - [Bacitracin Topical 1 applic TP DAILY 06/09/17 Ointment -] Budesonide/Formeterol Fumarate 1 inh PO BID 06/09/17 [SYMBICORT 80/4.5mcg -] Calcium Carbonate/Vitamin D3 1 each PO BID 06/09/17 [Oyster Shell 500-Vit D3 200 Tb] Diltiazem Cd [Cardizem Cd -] 240 mg PO DAILY 06/09/17 Docusate Sodium [Colace -] 200 mg PO DAILY 06/09/17 Donepezil HCl [Aricept] 10 mg PO DAILY 06/09/17 Escitalopram Oxalate [Lexapro -] 10 mg PO DAILY 06/09/17 Ferrous Sulfate 325 mg PO DAILY 06/09/17 Gabapentin 300 mg PO DAILY 06/09/17 Gabapentin 600 mg PO HS 06/09/17 Loratadine 10 mg PO DAILY 06/09/17 Memantine HCl [Namenda -] 10 mg PO BID 06/09/17 Mycophenolate Mofetil [Cellcept] 500 mg PO DAILY 06/09/17 Olopatadine HCl [Pataday] 2.5 ml OP DAILY 06/09/17 Oxybutynin Chloride 5 mg PO DAILY 06/09/17 Polyethylene Glycol 3350 [Miralax 17 gm PO DAILY 06/09/17 (For Daily Use) -] Prednisone 15 mg PO DAILY 06/09/17 Rivaroxaban [Xarelto -] 20 mg PO DAILY 06/09/17 Sennosides/Docusate Sodium [Senna 2 each PO HS 06/09/17 Laxative Tablet] Tiotropium [place] [Spiriva] 1 inh PO DAILY 06/09/17 REVIEW OF SYSTEMS CONSTITUTIONAL: Absent: fever, chills, diaphoresis, generalized weakness, malaise, loss of appetite, weight change HEENT: Absent: rhinorrhea, nasal congestion, throat pain, throat swelling, difficulty swallowing, mouth swelling, ear pain, eye pain, visual changes CARDIOVASCULAR: Absent: chest pain, syncope, palpitations, irregular heart rate, lightheadedness , peripheral edema RESPIRATORY: cough Absent: shortness of breath, dyspnea with exertion, orthopnea, wheezing, stridor , hemoptysis GASTROINTESTINAL: Absent: abdominal pain, abdominal distension, nausea, vomiting, diarrhea, constipation, melena, hematochezia GENITOURINARY: Absent: dysuria, frequency, urgency, hesitancy, hematuria, flank pain, genital pain MUSCULOSKELETAL: Absent: myalgia, arthralgia, joint swelling, back pain, neck pain SKIN: Absent: rash, itching, pallor HEMATOLOGIC/IMMUNOLOGIC: Absent: easy bleeding, easy bruising, lymphadenopathy, frequent infections ENDOCRINE: Absent: unexplained weight gain, unexplained weight loss, heat intolerance, cold intolerance NEUROLOGIC: Severe Dementia, Unsteady Gait Absent: headache, focal weakness or paresthesias, dizziness, unsteady gait, seizure, mental status changes, bladder or bowel incontinence PSYCHIATRIC: Absent: anxiety, depression, suicidal or homicidal ideation, hallucinations. PHYSICAL EXAMINATION Vital Signs - 24 hr 06/09/17 15:57 Temperature 100.8 F H Pulse Rate 113 H Respiratory 20 Rate Blood Pressure 112/74 O2 Sat by Pulse 100 Oximetry (%) GENERAL: Drowsy, oriented to place only HEAD: Normal with no signs of trauma. EYES: Pupils equal, round and reactive to light, extraocular movements intact, sclera anicteric, conjunctiva clear. EARS, NOSE, THROAT: Oropharynx clear without exudates. Dry mucous membranes. NECK: (-) lymphadenopathy, JVD, or masses. LUNGS: Decreased breath sounds throughout lung bases. No wheezes, and no crackles. No accessory muscle use. HEART: Tachycardic with regular rhythm, 2/6 systolic murmur with normal S1 and S2 without rub or gallop. ABDOMEN: Soft, nontender, not distended, normoactive bowel sounds, no guarding, no rebound, no masses. No hepatomegaly or splenomegaly. MUSCULOSKELETAL: L patellar and anterior cross hematoma; no L knee ttp, ROM intact. Small L knee superficial abrasion, clean w/o erythema UPPER EXTREMITIES: 2+ pulses, warm, well-perfused. No cyanosis. No clubbing. No peripheral edema. LOWER EXTREMITIES: 2+ pulses, warm, well-perfused. No calf tenderness. No peripheral edema. NEUROLOGICAL: Unable to assess. No facial droop Laboratory Results - last 24 hr 06/09/17 06/09/17 06/09/17 18:50 18:50 18:50 WBC 11.3 H RBC 3.37 L Hgb 8.9 L Hct 28.3 L MCV 84.2 MCH 26.4 MCHC 31.3 L RDW 17.2 H Plt Count 378 MPV 8.2 Neutrophils % 88.1 H D Lymphocytes % 5.4 L D Monocytes % 5.8 Eosinophils % 0.1 D Basophils % 0.6 PT with INR 27.00 H INR 2.39 H D VBG pH POC VBG pCO2 POC VBG pO2 Mixed VBG HCO3 Sodium 141 Potassium 4.0 Chloride 101 Carbon Dioxide 36 H Anion Gap 4 L BUN 16 D Creatinine 0.9 D Creat Clearance w eGFR 58.95 Random Glucose 130 H D Lactic Acid Calcium 8.8 Total Bilirubin 0.2 D AST 21 ALT 19 D Alkaline Phosphatase 67 Creatine Kinase Troponin I Total Protein 6.2 L Albumin 2.8 L Urine Color Urine Appearance Urine pH Ur Specific [place] Urine Protein Urine Glucose (UA) Urine Ketones Urine Blood Urine Nitrite Urine Bilirubin Urine Urobilinogen Blood Type Antibody Screen 06/09/17 06/09/17 06/09/17 20:52 20:52 20:52 WBC RBC Hgb Hct MCV MCH MCHC RDW Plt Count MPV Neutrophils % Lymphocytes % Monocytes % Eosinophils % Basophils % PT with INR INR VBG pH POC VBG pCO2 POC VBG pO2 Mixed VBG HCO3 Sodium Potassium Chloride Carbon Dioxide Anion Gap BUN Creatinine Creat Clearance w eGFR Random Glucose Lactic Acid 2.9 H* Calcium Total Bilirubin AST ALT Alkaline Phosphatase Creatine Kinase 30 Troponin I < 0.02 Total Protein Albumin Urine Color Urine Appearance Urine pH Ur Specific [place] Urine Protein Urine Glucose (UA) Urine Ketones Urine Blood Urine Nitrite Urine Bilirubin Urine Urobilinogen Blood Type A NEGATIVE Antibody Screen Negative 06/09/17 06/10/17 21:30 04:10 WBC RBC Hgb Hct MCV MCH MCHC RDW Plt Count MPV Neutrophils % Lymphocytes % Monocytes % Eosinophils % Basophils % PT with INR INR VBG pH 7.42 POC VBG pCO2 53.9 H POC VBG pO2 34.2 D Mixed VBG HCO3 34.6 H Sodium Potassium Chloride Carbon Dioxide Anion Gap BUN Creatinine Creat Clearance w eGFR Random Glucose Lactic Acid Calcium Total Bilirubin AST ALT Alkaline Phosphatase Creatine Kinase Troponin I Total Protein Albumin Urine Color Yellow Urine Appearance Slcloudy Urine pH 6.0 Ur Specific [place] 1.017 Urine Protein Negative Urine Glucose (UA) 1+ H Urine Ketones Negative Urine Blood Negative Urine Nitrite Negative Urine Bilirubin Negative Urine Urobilinogen Negative Blood Type Antibody Screen IMAGES: Head CT (06/09/17): No acute pathology. Prominent Periventricular and subcortical chronic microvascular ischemic changes Chest X-Ray (06/09/17): R>L lower lobe consolidation likely PNA, as read by me. Final report pending Knee X-Ray (06/09/17): No fractures shown. ASSESSMENT/PLAN: Patient is an 87 year old female who was BIBEMS s/p mechanical fall and was found to be septic. Patient admitted for further monitoring and management. S/P Mechanical Fall -Head CT negative -Knee X-Ray negative -Patient has no recollection of what happened. She has a significant history of dementia with frequent falls. 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 -Continue Xarelto 20mg daily [place] Eugenie -controlled with Prednisone -Will confirm if patient still on Prednisone -Will hold Cellcept as patient is in acute infection Normocytic Anemia -Baseline hgb around 8.0 -Will continue ferrous sulfate History of CAD -Continue ASA 81mg daily COPD/Asthma dependent on 02 at home -2L of 02 at home -Continue Spiriva, symbicort, and Duo-nebs PRN Alzheimer's Dementia -Continue Donepezil 10mg daily and Namenda 10mg daily HTN -Continue Cardizem 240 daily HLD -Continue Lipitor 10mg daily Hypothyroidism -Continue Synthroid 75mcg Overactive Bladder -Continue Oxybutynin 5mg daily Non-Hodgkins Lymphoma -On Cellcept but will hold due to acute infection Anxiety/Depression -Continue Xanax 0.25mg TID and Lexapro 10mg daily Constipation -Continue senna, colace, and miralax F/E/N -IV NS @ 83mls/hr -Electrolytes wnl -Sodium controlled diet Prophylaxis -High risk. Heparin 5000 units SQ Q8H for DVT -No GI required Disposition -Full code -Found to have PNA. Will need IV abx Visit type - Emergency Visit Emergency Visit: No - New Patient This patient is new to me today: Yes Date on this admission: 06/09/17 - Critical Care Critical Care patient: Yes Total Critical Care Time (in minutes): 45 Critical Care Statement: The care of this patient involved high complexity decision making to prevent further life threatening deterioration of the patient 's condition and/or to evaluate & treat vital organ system(s) failure or risk of failure.
[2017-06-10] MEDS ORDERED: HEPARIN NA (PORCINE) 5,000 UNITS/ML 1ML VIAL SQ SCH (06:00)
[2017-06-10] MEDS ORDERED: HEPARIN NA (PORCINE) 5,000 UNITS/ML 1ML VIAL ONE (06:50)
[2017-06-10] MEDS ORDERED: PIPERACILLIN/TAZOB 4.5 GM/100 ML PRE-DOCKED IVPB ONE (08:00)
[2017-06-10] MEDS ORDERED: PATIENT'S OWN MEDICATION (NON-FORMULARY) (Olopatadine Hcl [Pataday] 2.5 ML) OP SCH (10:00)
[2017-06-10] MEDS ORDERED: AZITHROMYCIN IVPB 500 MG in DEXTROSE 5%-WATER - 250 ML IVPB SCH (10:00)
[2017-06-10] MEDS ORDERED: VANCOMYCIN 1,000 MG in DEXTROSE 5%-WATER - 250 ML IVPB SCH (10:00)
[2017-06-10 10:55] LABS: MCH 26.3 pg (25.7-33.7); MCHC 31.2 g/dl (32.0-36.0); MEAN CELL VOLUME 84.3 fl (80-96); MEAN PLT VOLUME 8.2 fl (7.5-11.1); PLATELET COUNT 334 K/MM3 (134-434); RDW 17.8 % (11.6-15.6); WHITE BLOOD COUNT 8.6 K/mm3 (4.0-10.0)
[2017-06-10] MEDS: DOCUSATE SODIUM 100 MG CAPSULE (FP) PO SCH (11:08)
[2017-06-10] MEDS: ALPRAZolam 0.25 MG TABLET PO SCH (11:08)
[2017-06-10] MEDS: RIVAROXABAN 20 MG TABLET PO SCH (11:08)
[2017-06-10] MEDS: MEMANTINE HCL 10 MG TABLET (FP) PO SCH ×2 (11:09→21:27)
[2017-06-10] MEDS: ESCITALOPRAM OXALATE 10 MG TABLET (FP) PO SCH (11:09)
[2017-06-10] MEDS: OXYBUTYNIN CHLORIDE 5 MG TABLET PO SCH (11:09)
[2017-06-10] MEDS: DONEPEZIL HCL 10 MG TABLET (FP) PO SCH (11:09)
[2017-06-10] MEDS: ASPIRIN 81 MG CHEWABLE TABLETS PO SCH (11:09)
[2017-06-10] MEDS: FERROUS SO4 325 MG TABLET (FP) PO SCH (11:09)
[2017-06-10] MEDS: POLYETHYLENE GLYCOL 3350 119 GM BTL PO SCH (11:10)
[2017-06-10] MEDS: TIOTROPIUM BROMIDE 18 MCG/INH (DEVICE W/ 5 CAPSULES) IH SCH (11:11)
[2017-06-10] MEDS: BUDESONIDE/FORMETEROL FUMARATE 80/4.5 mcg INHALER IH SCH ×2 (11:11→21:33)
[2017-06-10 11:23] LABS: ANION GAP 6 (8-16); CO2 35 mmol/L (21-32); CREATININE 0.8 mg/dL (0.55-1.02); GLUCOSE,RANDOM 73 mg/dL (74-106); INR 1.08 (0.82-1.09); MAGNESIUM 2.2 mg/dL (1.8-2.4); PHOSPHOROUS 2.7 mg/dL (2.5-4.9); PROTHROMBIN TIME (PATIENT) 12.2 SEC (9.98-11.88)
[2017-06-10 11:26] LABS: ACTIVATED PTT 26.2 SECONDS (26.9-34.4)
[2017-06-10] MEDS ORDERED: POTASSIUM CHLORIDE TABS 20 MEQ TABLET.ER (FP) PO ONE (11:37)
--- NOTE | 2017-06-10 11:59 | CON.PULM ---
Consult Consult Specialty:: PULMONARY Referred by:: Dr. Robb Reason for Consultation:: pneumonia - History of Present Illness Chief Complaint: fall History of Present Illness: 87yo female with h/o HTN, hyperlipidemia, hypothyroidism, COPD, chronic hypoxic respiratory failure on home O2, Churgg Eugenie disease, h/o DVT on anticoagulation, lymphoma, dementia, recent admission for cellulitis/olecronon bursitis treated with antibiotic course who presents s/p fall. She is a poor historian, unable to provide reliable history due to her dementia but per daughter/chart, her legs gave out. Found to be febrile to 100.8, tachycardic with lactic acidosis on bloodwork. She denies any cough, shortness of breath or wheezing. Denies dysuria or hematuria. No nausea, vomiting or diarrhea. - History Source History Provided By: Patient, Medical Record Limitations to Obtaining History: Dementia - Past Medical History BONSAI TENDER: Yes: Dementia Cardio/Vascular: Yes: HTN, Hyperlipdemia, Pulmonary Hypertension Pulmonary: Yes: COPD, O2 Dependent, Other (thoracotomy due to mass) Psych: Yes: Anxiety, Panic Musculoskeletal: Yes: Other (h/o of foot drop) Rheumatology: Yes: Vasculitis - Past Surgical History Past Surgical History: Yes: Thoracotomy - Alcohol/Substance Use Hx Alcohol Use: No - Smoking History Smoking history: Never smoked Have you smoked in the past 12 months: No Aproximately how many cigarettes per day: 0 If you are a former smoker, when did you quit?: 45 years ago - Social History Usual Living Arrangement: Assisted Living ADL: Support Services History of Recent Travel: No Home Medications - Allergies Allergies/Adverse Reactions: Allergies Allergy/AdvReac Type Severity Reaction Status Date / Time levofloxacin [From Levaquin] AdvReac Unknown Itching Verified 06/09/17 16:07 - Home Medications Home Medications: Ambulatory Orders Aa/Hydrolyzed Collagen, Whey [Lps Neutral Flavor Liquid] 960 ml PO DAILY Acetaminophen [Mapap] 650 mg PO QID PRN 06/09/17 Albuterol Sulfate [Proventil HFA Inhaler -] 1 - 2 inh PO QID 06/09/17 Alprazolam [Xanax] 0.25 mg PO DAILY 06/09/17 Aspirin [ASA -] 81 mg PO DAILY 06/09/17 Atorvastatin Ca [Lipitor] 10 mg PO HS 06/09/17 Bacitracin - [Bacitracin Topical Ointment -] 1 applic TP DAILY 06/09/17 Budesonide/Formeterol Fumarate [SYMBICORT 80/4.5mcg -] 1 inh PO BID 06/09/17 Calcium Carbonate/Vitamin D3 [Oyster [place] 500-Vit D3 200 Tb] 1 each PO BID 02/16 Diltiazem Cd [Cardizem Cd -] 240 mg PO DAILY 06/09/17 Docusate Sodium [Colace -] 200 mg PO DAILY 06/09/17 Donepezil HCl [Aricept] 10 mg PO DAILY 06/09/17 Escitalopram Oxalate [Lexapro -] 10 mg PO DAILY 06/09/17 Ferrous Sulfate 325 mg PO DAILY 06/09/17 Gabapentin 300 mg PO DAILY 06/09/17 Gabapentin 600 mg PO HS 06/09/17 Loratadine 10 mg PO DAILY 06/09/17 Memantine HCl [Namenda -] 10 mg PO BID 06/09/17 Mycophenolate Mofetil [Cellcept] 500 mg PO DAILY 06/09/17 Olopatadine HCl [Pataday] 2.5 ml OP DAILY 06/09/17 Oxybutynin Chloride 5 mg PO DAILY 06/09/17 Polyethylene Glycol 3350 [Miralax (For Daily Use) -] 17 gm PO DAILY 06/09/17 Prednisone 15 mg PO DAILY 06/09/17 Rivaroxaban [Xarelto -] 20 mg PO DAILY 06/09/17 Sennosides/Docusate Sodium [Senna Laxative Tablet] 2 each PO HS 06/09/17 Tiotropium [place] [Spiriva] 1 inh PO DAILY 06/09/17 Family Disease History - Family Disease History Family Disease History: Heart Disease: Father, Sister Review of Systems - Review of Systems Constitutional: denies: Chills, Fever Eyes: denies: Recent Change in Vision HENT: denies: Nasal Congestion, Throat Pain Neck: denies: Stiffness, Tenderness Cardiovascular: denies: Chest Pain, Shortness of Breath Respiratory: denies: Cough, Hemoptysis, SOB on Exertion, Wheezing Gastrointestinal: denies: Abdominal Pain, Nausea, Vomiting Genitourinary: denies: Dysuria, Hematuria Neurological: denies: Dizziness, Headache Physical Exam Vital Sings: Vital Signs Temperature 98.7 F 06/10/17 06:47 Pulse Rate 89 06/10/17 06:47 Respiratory Rate 20 06/10/17 06:47 Blood Pressure 110/54 06/10/17 06:47 O2 Sat by Pulse Oximetry (%) 96 06/10/17 06:47 Constitutional: Yes: Calm Eyes: Yes: Conjunctiva Clear, EOM Intact HENT: Yes: Atraumatic, Normocephalic Neck: Yes: Supple, Trachea Midline Cardiovascular: Yes: Regular Rate and Rhythm Respiratory: Yes: Rhonchi (scattered), Wheezes (scattered) ...Clubbing: No Gastrointestinal: Yes: Normal Bowel Sounds, Soft. No: Tenderness Edema: No Labs: CBC, BMP 06/10/17 10:20 06/10/17 10:20 Imaging - Results Chest X-ray: Report Reviewed, Image Reviewed (bibasilar infiltrates vs atelectasis, left pleural effusion) Problem List - Problems (1) Pneumonia Code(s): J18.9 - PNEUMONIA, UNSPECIFIED ORGANISM (2) COPD (chronic obstructive pulmonary disease) Code(s): J44.9 - CHRONIC OBSTRUCTIVE PULMONARY DISEASE, UNSPECIFIED (3) Sepsis Code(s): A41.9 - SEPSIS, UNSPECIFIED ORGANISM (4) Dementia Code(s): F03.90 - UNSPECIFIED DEMENTIA WITHOUT BEHAVIORAL DISTURBANCE Qualifiers: Dementia type: unspecified type Dementia behavioral disturbance: without behavioral disturbance Qualified Code(s): F03.90 - Unspecified dementia without behavioral disturbance (5) Hypercholesteremia Code(s): E78.0 - PURE HYPERCHOLESTEROLEMIA * DO NOT USE * (6) Hypertension Code(s): I10 - ESSENTIAL (PRIMARY) HYPERTENSION (7) Hypothyroid Code(s): E03.9 - HYPOTHYROIDISM, UNSPECIFIED Assessment/Plan s/p Fall r/o Pneumonia Sepsis Lactic Acidosis HTN Hyperlipidemia COPD Churgg Eugenie Disease h/o DVT Dementia - agree with coverage for health care acquired organisms - f/u cultures - send stool for C diff if diarrhea - IVF, can decrease rate - inhaled bronchodilators - O2 to keep SpO2 >90% - can defer systemic steroids at this time - continue anticoagulation Thank you for this consult José Luis Beauchamp MD
[2017-06-10 12:19] LABS: URINE LEUK ESTERASE Negative (NEGATIVE)
[2017-06-10] MEDS ORDERED: ACETAMINOPHEN 500 MG TABLET (FP) PO PRN (12:27)
--- NOTE | 2017-06-10 12:41 | PN ---
Physical Exam: SUBJECTIVE: Patient seen and examined. States she is doing well. No complaints. No cough, no SOB, no CP. Grossly asymptomatic. OBJECTIVE: Vital Signs Period Temp Pulse Resp BP Sys/Bahena Pulse Ox Last 24 Hr 98.7 F-100.8 F 89-113 20-20 110-112/54-74 96-100 GEN: AAOx1, NAD, Lying comfortably, no respiratory distress HEENT: PERRLA, EOMi CV: S1, S2, RRR LUNG: L sided lobectomy changes; R side clear ABD: Soft, NT, ND, normoactive BS MSK: No edema, mild hematoma on L kneecap Active Medications Generic Name Dose Route Start Last Admin Trade Name Freq PRN Reason Stop Dose Admin Acetaminophen 650 mg 06/10/17 04:41 Tylenol - PO Q6H PRN FEVER OR PAIN Acetaminophen 650 mg 06/10/17 12:27 Tylenol - PO QID PRN pain Alprazolam 0.25 mg 06/10/17 10:00 06/10/17 11:08 Xanax - PO 0.25 mg DAILY [facility] Administration Aspirin 81 mg 06/10/17 10:00 06/10/17 11:09 Asa - PO 81 mg DAILY [facility] Administration Atorvastatin Calcium 10 mg 06/10/17 22:00 Lipitor - PO HS [facility] Budesonide/Formoterol Fumarate 1 puff 06/10/17 10:00 06/10/17 11:11 Symbicort 80/4.5mcg - IH Not Given BID [facility] Diltiazem HCl 240 mg 06/10/17 10:00 06/10/17 11:09 Cardizem Cd - PO 240 mg DAILY [facility] Administration Docusate Sodium 200 mg 06/10/17 10:00 06/10/17 11:08 Colace - PO 200 mg DAILY [facility] Administration Donepezil HCl 10 mg 06/10/17 10:00 06/10/17 11:09 Aricept - PO 10 mg DAILY [facility] Administration Escitalopram Oxalate 10 mg 06/10/17 10:00 06/10/17 11:09 Lexapro - PO 10 mg DAILY [facility] Administration Ferrous Sulfate 325 mg 06/10/17 10:00 06/10/17 11:09 Feosol - PO 325 mg DAILY [facility] Administration Gabapentin 300 mg 06/11/17 10:00 Neurontin - PO DAILY [facility] Sodium Chloride 1,000 mls @ 83 mls/hr 06/10/17 04:45 06/10/17 11:17 Normal Saline - IV Not Given ASDIR [facility] Vancomycin HCl 1,000 mg/ 250 mls @ 166.667 mls/hr 06/10/17 10:00 Dextrose IVPB BID [facility] Azithromycin 500 mg/ Dextrose 250 mls @ 250 mls/hr 06/10/17 10:00 06/10/17 10 :52 IVPB Not Given DAILY [facility] Memantine 10 mg 06/10/17 10:00 06/10/17 11:09 Namenda - PO 10 mg BID [facility] Administration Non-Formulary Medication 2.5 ml 06/10/17 10:00 Olopatadine Hcl [Pataday] OP DAILY [facility] Non-Formulary Medication 600 mg 06/10/17 22:00 Gabapentin [Gabapentin] PO HS [facility] Non-Formulary Medication 10 mg 06/11/17 10:00 Loratadine [Loratadine] PO DAILY [facility] Oxybutynin Chloride 5 mg 06/10/17 10:00 06/10/17 11:09 Ditropan - PO 5 mg DAILY [facility] Administration Piperacillin Sod/Tazobactam Sod 4.5 gm 06/10/17 15:00 Zosyn 4.5gm Ivpb (Pre-Docked) IVPB Q6H-IV [facility] Polyethylene Glycol 17 gm 06/10/17 10:00 06/10/17 11:10 Miralax (For Daily Use) - PO 17 gm DAILY [facility] Administration Prednisone 15 mg 06/10/17 12:30 Deltasone - PO DAILY [facility] Rivaroxaban 20 mg 06/10/17 10:00 06/10/17 11:08 Xarelto - PO 20 mg DAILY [facility] Administration Senna/Docusate Sodium 2 tablet 06/10/17 22:00 Pericolace - PO HS [facility] Tiotropium [place] 1 puff 06/10/17 10:00 06/10/17 11:11 Spiriva - IH Not Given DAILY [facility] ASSESSMENT/PLAN: Patient is an 87 year old female who was BIBEMS s/p mechanical fall and was found to be septic. Patient admitted for further monitoring and management. # S/p Fall - No fractures, no TTP, no pain, has superficial L knee hematoma. INR has resolved. Conservative mgmt for now. # Sepsis - Possibly due to HCAP, although clinically does not appear to have pneumonia. CXR is mostly unchanged from prior. Has baseline leukocytosis from standing steroids. No symptoms. R sided lungs are clear (Has L lung lobectomy). Currently on Vanc/Zosyn/Azithro for HCAP coverage. It is possible fever is reactive from the fall. Will d/w Infectious Disease if continued antibiotics are necessary. Can likely d/c soon. # Hx of Churgg Eugenie - continue home Prednisone 15 daily, HOLD Cellcept for now, but can restart upon d/c # Hx of L brachial DVT - Continue Xarelto # Normocytic Anemia - Continue Ferrous Sulfate # Hx of CAD - continue ASA # COPD/Asthma - continue Spiriva, Symbicort, Duonebs PRN # Alzheimer dementia - continue Donepezil # HTN - continue Cardizem # HLD - continue Lipitor # Hypothyroidism - continue Synthroid # Overactive Bladder - continue Oxybutynin # Neuropathy - Continue Gabapentin # Anxiety/Depression - continue Xanax and Lexapro # GERD - continue Zantac # Constipation - continue Senna, Colace, and Miralax # FEN/PPx - No fluids necessary low sodium diet, On Xarelto # Dispo - Admitted for sepsis 2/2 possible HCAP, but improving quickly. Hopeful d/c soon, need to discuss w/ ID d/w Dr Son Hernadez MD - PGY1 Resident Internal Medicine Visit type - Emergency Visit Emergency Visit: No - New Patient This patient is new to me today: No - Critical Care Critical Care patient: No - Discharge Referral Referred to [facility] Med P.C.: No
--- NOTE | 2017-06-10 13:10 | PN ---
Teaching Attending Note Name of Resident: Harini Hernadez ATTENDING PHYSICIAN STATEMENT Time of evaluation: 10:30 AM I saw and evaluated the patient. I reviewed the resident's note and discussed the case with the resident. I agree with the resident's findings and plan as documented. SUBJECTIVE: Patient seen and examined. Denies any fevers, chills, pain. breathing at baseline, oriented to self. Doesn't remember falling. OBJECTIVE: Vital Signs Period Temp Pulse Resp BP Sys/Bahena Pulse Ox Last 24 Hr 98.7 F-100.8 F 89-113 20-20 110-112/54-74 96-100 Intake & Output 06/07/17 06/08/17 06/09/17 06/10/17 23:59 23:59 23:59 23:59 Weight 153 lb General: lying in bed in no acute distress CVS:S1s2 regular Chest: right basilar rales, good air entry bilaterally, few scattered left basilar rales Abdomen: soft, obese, NT Extremities: prior left elbow site clean Left knee with superficial bruse and 2 ecchymotic areas one over knee one, proximal 1/3rd left leg, non tender, non warm Neuro AAoriented to self, grossly nonfocal Home Medication List Medication Instructions Recorded Confirmed Type Aa/Hydrolyzed Collagen, Whey [Lps 960 ml PO DAILY 06/09/17 06/09/17 History Neutral Flavor Liquid] Acetaminophen [Mapap] 650 mg PO QID PRN 06/09/17 06/09/17 History Albuterol Sulfate [Proventil HFA 1 - 2 inh PO QID 06/09/17 06/09/17 History Inhaler -] Alprazolam [Xanax] 0.25 mg PO DAILY 06/09/17 06/09/17 History Aspirin [ASA -] 81 mg PO DAILY 06/09/17 06/09/17 History Atorvastatin Ca [Lipitor] 10 mg PO HS 06/09/17 06/09/17 History Bacitracin - [Bacitracin Topical 1 applic TP DAILY 06/09/17 06/09/17 History Ointment -] Budesonide/Formeterol Fumarate 1 inh PO BID 06/09/17 06/09/17 History [SYMBICORT 80/4.5mcg -] Calcium Carbonate/Vitamin D3 1 each PO BID 06/09/17 06/09/17 History [Oyster Shell 500-Vit D3 200 Tb] Diltiazem Cd [Cardizem Cd -] 240 mg PO DAILY 06/09/17 06/09/17 History Docusate Sodium [Colace -] 200 mg PO DAILY 06/09/17 06/09/17 History Donepezil HCl [Aricept] 10 mg PO DAILY 06/09/17 06/09/17 History Escitalopram Oxalate [Lexapro -] 10 mg PO DAILY 06/09/17 06/09/17 History Ferrous Sulfate 325 mg PO DAILY 06/09/17 06/09/17 History Gabapentin 300 mg PO DAILY 06/09/17 06/09/17 History Gabapentin 600 mg PO HS 06/09/17 06/09/17 History Loratadine 10 mg PO DAILY 06/09/17 06/09/17 History Memantine HCl [Namenda -] 10 mg PO BID 06/09/17 06/09/17 History Mycophenolate Mofetil [Cellcept] 500 mg PO DAILY 06/09/17 06/09/17 History Olopatadine HCl [Pataday] 2.5 ml OP DAILY 06/09/17 06/09/17 History Oxybutynin Chloride 5 mg PO DAILY 06/09/17 06/09/17 History Polyethylene Glycol 3350 [Miralax 17 gm PO DAILY 06/09/17 06/09/17 History (For Daily Use) -] Prednisone 15 mg PO DAILY 06/09/17 06/09/17 History Rivaroxaban [Xarelto -] 20 mg PO DAILY 06/09/17 06/09/17 History Sennosides/Docusate Sodium [Senna 2 each PO HS 06/09/17 06/09/17 History Laxative Tablet] Tiotropium [place] [Spiriva] 1 inh PO DAILY 06/09/17 06/09/17 History Active Medications Generic Name Dose Route Start Last Admin Trade Name Freq PRN Reason Stop Dose Admin Acetaminophen 650 mg 06/10/17 04:41 Tylenol - PO Q6H PRN FEVER OR PAIN Acetaminophen 650 mg 06/10/17 12:27 Tylenol - PO QID PRN pain Alprazolam 0.25 mg 06/10/17 10:00 06/10/17 11:08 Xanax - PO 0.25 mg DAILY [facility] Administration Aspirin 81 mg 06/10/17 10:00 12/09/17 11:09 Asa - PO 81 mg DAILY [facility] Administration Atorvastatin Calcium 10 mg 06/10/17 22:00 Lipitor - PO HS [facility] Budesonide/Formoterol Fumarate 1 puff 06/10/17 10:00 06/10/17 11:11 Symbicort 80/4.5mcg - IH Not Given BID [facility] Diltiazem HCl 240 mg 06/10/17 10:00 06/10/17 11:09 Cardizem Cd - PO 240 mg DAILY [facility] Administration Docusate Sodium 200 mg 06/10/17 10:00 06/10/17 11:08 Colace - PO 200 mg DAILY [facility] Administration Donepezil HCl 10 mg 06/10/17 10:00 06/10/17 11:09 Aricept - PO 10 mg DAILY [facility] Administration Escitalopram Oxalate 10 mg 06/10/17 10:00 06/10/17 11:09 Lexapro - PO 10 mg DAILY [facility] Administration Ferrous Sulfate 325 mg 06/10/17 10:00 06/10/17 11:09 Feosol - PO 325 mg DAILY [facility] Administration Gabapentin 300 mg 06/11/17 10:00 Neurontin - PO DAILY [facility] Vancomycin HCl 1,000 mg/ 250 mls @ 166.667 mls/hr 06/10/17 10:00 Dextrose IVPB BID [facility] Azithromycin 500 mg/ Dextrose 250 mls @ 250 mls/hr 06/10/17 10:00 06/10/17 10 :52 IVPB Not Given DAILY [facility] Memantine 10 mg 06/10/17 10:00 06/10/17 11:09 Namenda - PO 10 mg BID [facility] Administration Non-Formulary Medication 2.5 ml 06/10/17 10:00 Olopatadine Hcl [Pataday] OP DAILY [facility] Non-Formulary Medication 600 mg 06/10/17 22:00 Gabapentin [Gabapentin] PO HS [facility] Non-Formulary Medication 10 mg 06/11/17 10:00 Loratadine [Loratadine] PO DAILY [facility] Oxybutynin Chloride 5 mg 06/10/17 10:00 06/10/17 11:09 Ditropan - PO 5 mg DAILY [facility] Administration Piperacillin Sod/Tazobactam Sod 4.5 gm 06/10/17 15:00 Zosyn 4.5gm Ivpb (Pre-Docked) IVPB Q6H-IV [facility] Polyethylene Glycol 17 gm 06/10/17 10:00 06/10/17 11:10 Miralax (For Daily Use) - PO 17 gm DAILY [facility] Administration Prednisone 15 mg 06/10/17 12:30 Deltasone - PO DAILY [facility] Rivaroxaban 20 mg 06/10/17 10:00 06/10/17 11:08 Xarelto - PO 20 mg DAILY [facility] Administration Senna/Docusate Sodium 2 tablet 06/10/17 22:00 Pericolace - PO HS [facility] Tiotropium [place] 1 puff 06/10/17 10:00 06/10/17 11:11 Spiriva - IH Not Given DAILY [facility] Microbiology 06/10/17 04:15 Nasopharyngeal Swab Influenza Types A,B Antigen (NATHAN) - Final 06/10/17 04:15 Nasopharyngeal Swab - Final CXR small left pleural effusion, no clear infiltrate ASSESSMENT AND PLAN: 87 yof with Alzheimer's dementia, COPD on 2L home oxygen, 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 Blood/sputum cultures. Flu swab neg. Check urine legionella. Strep pneumoniae studies. Exam and CXR not fully convincing for pneumonia. Pulmonary input noted. Follow up ID input, taper antibiotics accordingly. Hold cellcept. Continue prednisone. Trauma w/u with head CT and knee/pelvis xrays neg. PT eval, fall precautions. Continue xarelto, ASA/statin/diltiazem Continue xanax, namenda, lexapro. dispo pending improvement in symptoms. PT eval and anticipate d/c back to assisted living vs SNF as indicated.
--- NOTE | 2017-06-10 13:30 | PN ---
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
[2017-06-10] MEDS ORDERED: PIPERACILLIN/TAZOB 4.5 GM/100 ML PRE-DOCKED IVPB SCH (15:00)
[2017-06-10] MEDS: predniSONE 5 MG TABLET (UD) PO SCH (15:05)
[2017-06-10 18:53] VITALS: BMI 23.7
--- NOTE | 2017-06-10 21:15 | EKG ---
Test Reason : Blood Pressure : / mmHG Vent. Rate : 088 BPM Atrial Rate : 088 BPM P-R Int : 154 ms QRS Dur : 098 ms QT Int : 370 ms P-R-T Axes : 050 011 014 degrees QTc Int : 447 ms SINUS RHYTHM WITH FREQUENT PREMATURE VENTRICULAR COMPLEXES OTHERWISE NORMAL ECG WHEN COMPARED WITH ECG OF 25-MAY-2017 12:00, PREMATURE VENTRICULAR COMPLEXES ARE NOW PRESENT NONSPECIFIC T WAVE ABNORMALITY, IMPROVED IN LATERAL LEADS Confirmed by KAMALA SIHRLEY, JESSICA ([id number]) on 06/10/2017 9:14:42 PM Referred By: Confirmed By:JESSICA WRAY MD
[2017-06-10] MEDS: ATORVASTATIN CA 10 MG TABLET (FP) PO SCH (21:27)
[2017-06-10] MEDS: GABAPENTIN 300 MG CAPSULE (FP) PO SCH (21:31)
[2017-06-10] MEDS: SENNOSIDES/DOCUSATE COMBO (SENNA PLUS) TABLET (UD) PO SCH (21:31)
[2017-06-11 07:02] LABS: BASOPHIL 0.4 % (0-2.0); EOSINOPHIL 0.7 % (0-4.5); MCHC 30.8 g/dl (32.0-36.0); MEAN CELL VOLUME 84.6 fl (80-96); MEAN PLT VOLUME 8.3 fl (7.5-11.1); NEUTROPHILS 69.4 % (42.8-82.8); PLATELET COUNT 346 K/MM3 (134-434); RDW 17.9 % (11.6-15.6); WHITE BLOOD COUNT 7.7 K/mm3 (4.0-10.0)
[2017-06-11 07:53] LABS: ALBUMIN 2.7 g/dl (3.4-5.0); ANION GAP 10 (8-16); CALCIUM 8.2 mg/dL (8.5-10.1); CO2 27 mmol/L (21-32); CREATININE 0.7 mg/dL (0.55-1.02); GLUCOSE,RANDOM 82 mg/dL (74-106); SGOT/AST 30 U/L (15-37); SGPT/ALT 20 U/L (12-78)
[2017-06-11 07:55] LABS: ALK PHOS 59 U/L (45-117); BILIRUBIN,TOTAL 0.5 mg/dL (0.2-1.0)
[2017-06-11] MEDS ORDERED: PT OWN MED DRAWER 7, Y5N ONE (10:01)
[2017-06-11] MEDS: DONEPEZIL HCL 10 MG TABLET (FP) PO SCH (10:05)
[2017-06-11] MEDS: LORATADINE 10 MG TABLET PO SCH (10:05)
[2017-06-11] MEDS: ASPIRIN 81 MG CHEWABLE TABLETS PO SCH (10:05)
[2017-06-11] MEDS: DOCUSATE SODIUM 100 MG CAPSULE (FP) PO SCH (10:05)
[2017-06-11] MEDS: FERROUS SO4 325 MG TABLET (FP) PO SCH (10:06)
[2017-06-11] MEDS: predniSONE 5 MG TABLET (UD) PO SCH (10:06)
[2017-06-11] MEDS: OXYBUTYNIN CHLORIDE 5 MG TABLET PO SCH (10:06)
[2017-06-11] MEDS: ESCITALOPRAM OXALATE 10 MG TABLET (FP) PO SCH (10:06)
[2017-06-11] MEDS: TIOTROPIUM BROMIDE 18 MCG/INH (DEVICE W/ 5 CAPSULES) IH SCH (10:07)
[2017-06-11] MEDS: GABAPENTIN 300 MG CAPSULE (FP) PO SCH ×2 (10:07→21:23)
[2017-06-11] MEDS: MEMANTINE HCL 10 MG TABLET (FP) PO SCH ×2 (10:07→21:25)
[2017-06-11] MEDS: POLYETHYLENE GLYCOL 3350 119 GM BTL PO SCH (10:07)
[2017-06-11] MEDS: ALPRAZolam 0.25 MG TABLET PO SCH (10:08)
[2017-06-11] MEDS: BUDESONIDE/FORMETEROL FUMARATE 80/4.5 mcg INHALER IH SCH ×2 (10:08→21:27)
[2017-06-11] MEDS: RIVAROXABAN 20 MG TABLET PO SCH (10:08)
--- NOTE | 2017-06-11 10:23 | PN ---
Teaching Attending Note Name of Resident: . ATTENDING PHYSICIAN STATEMENT Time of evaluation: 8:25 AM I saw and evaluated the patient. I reviewed the resident's note and discussed the case with the resident. I agree with the resident's findings and plan as documented. SUBJECTIVE: Patient seen and examined. no dyspnea, fevers or chills. Has chronic cough which is unchanged. OBJECTIVE: Vital Signs Period Temp Pulse Resp BP Sys/Bahena Pulse Ox Last 24 Hr 98.1 F-99 F 90-100 20-22 120-148/58-88 96-96 Intake & Output 06/08/17 06/09/17 06/10/17 06/11/17 23:59 23:59 23:59 23:59 Intake Total 700 240 Balance 700 240 Weight 153 lb 142 lb 9 oz GEneral: sitting in bed in no acute distress CVS:S1S2 regular Chest: No rales or wheezing, good air entry bilaterally Adomen: soft, obese, NT Extremities; no edema Active Medications Acetaminophen (Tylenol -) 650 mg PO Q6H PRN PRN Reason: FEVER OR PAIN Last Admin: 06/10/17 21:28 Dose: 650 mg Acetaminophen (Tylenol -) 650 mg PO Q6H PRN PRN Reason: pain Alprazolam (Xanax -) 0.25 mg PO DAILY [facility] Last Admin: 06/11/17 10:08 Dose: 0.25 mg Aspirin (Asa -) 81 mg PO DAILY [facility] Last Admin: 06/11/17 10:05 Dose: 81 mg Atorvastatin Calcium (Lipitor -) 10 mg PO HS [facility] Last Admin: 06/10/17 21:27 Dose: 10 mg Budesonide/Formoterol Fumarate (Symbicort 80/4.5mcg -) 1 puff IH BID [facility] Last Admin: 06/11/17 10:08 Dose: 1 puff Diltiazem HCl (Cardizem Cd -) 240 mg PO DAILY [facility] Last Admin: 06/11/17 10:05 Dose: 240 mg Docusate Sodium (Colace -) 200 mg PO DAILY [facility] Last Admin: 06/11/17 10:05 Dose: 200 mg Donepezil HCl (Aricept -) 10 mg PO DAILY [facility] Last Admin: 06/11/17 10:05 Dose: 10 mg Escitalopram Oxalate (Lexapro -) 10 mg PO DAILY [facility] Last Admin: 06/11/17 10:06 Dose: 10 mg Ferrous Sulfate (Feosol -) 325 mg PO DAILY [facility] Last Admin: 06/11/17 10:06 Dose: 325 mg Gabapentin (Neurontin -) 300 mg PO DAILY [facility] Last Admin: 06/11/17 10:07 Dose: 300 mg Gabapentin (Neurontin -) 600 mg PO HS [facility] Last Admin: 06/10/17 21:31 Dose: 600 mg Loratadine (Claritin -) 10 mg PO DAILY [facility] Last Admin: 06/11/17 10:05 Dose: 10 mg Memantine (Namenda -) 10 mg PO BID [facility] Last Admin: 06/11/17 10:07 Dose: 10 mg Oxybutynin Chloride (Ditropan -) 5 mg PO DAILY [facility] Last Admin: 06/11/17 10:06 Dose: 5 mg Polyethylene Glycol (Miralax (For Daily Use) -) 17 gm PO DAILY [facility] Last Admin: 06/11/17 10:07 Dose: 17 gm Prednisone (Deltasone -) 15 mg PO DAILY [facility] Last Admin: 06/11/17 10:06 Dose: 15 mg Rivaroxaban (Xarelto -) 20 mg PO DAILY [facility] Last Admin: 06/11/17 10:08 Dose: 20 mg Senna/Docusate Sodium (Pericolace -) 2 tablet PO HS [facility] Last Admin: 06/10/17 21:31 Dose: 2 tablet Tiotropium [place] (Spiriva -) 1 puff IH DAILY [facility] Last Admin: 06/11/17 10:07 Dose: 1 puff Laboratory Results - last 24 hr 06/10/17 06/10/17 06/10/17 04:10 10:20 10:20 WBC 8.6 RBC 3.43 L Hgb 9.0 L Hct 28.9 L MCV 84.3 MCH 26.3 MCHC 31.2 L RDW 17.8 H Plt Count 334 MPV 8.2 Neutrophils % Lymphocytes % Monocytes % Eosinophils % Basophils % PT with INR 12.20 H INR 1.08 D PTT (Actin FS) 26.2 L Sodium Potassium Chloride Carbon Dioxide Anion Gap BUN Creatinine Creat Clearance w eGFR Random Glucose Calcium Phosphorus Magnesium Total Bilirubin AST ALT Alkaline Phosphatase Total Protein Albumin Ur Leukocyte Esterase Negative 06/10/17 06/11/17 06/11/17 10:20 06:20 06:20 WBC 7.7 RBC 3.60 Hgb 9.4 L Hct 30.5 L MCV 84.6 MCH 26.0 MCHC 30.8 L RDW 17.9 H Plt Count 346 MPV 8.3 Neutrophils % 69.4 D Lymphocytes % 13.3 D Monocytes % 16.2 H D Eosinophils % 0.7 D Basophils % 0.4 PT with INR INR PTT (Actin FS) Sodium 142 143 Potassium 3.0 L D 4.1 D Chloride 101 106 Carbon Dioxide 35 H 27 D Anion Gap 6 L 10 BUN 13 13 Creatinine 0.8 0.7 Creat Clearance w eGFR > 60 Random Glucose 73 L D 82 Calcium 8.0 L 8.2 L Phosphorus 2.7 D Magnesium 2.2 Total Bilirubin 0.5 D AST 30 D ALT 20 Alkaline Phosphatase 59 Total Protein 6.0 L Albumin 2.7 L Ur Leukocyte Esterase Microbiology 06/09/17 20:52 Blood - Peripheral Venous Blood Culture - Preliminary NO GROWTH OBTAINED AFTER 24 HOURS, INCUBATION TO CONTINUE FOR 4 DAYS. 06/09/17 20:52 Blood - Peripheral Venous Blood Culture - Preliminary NO GROWTH OBTAINED AFTER 24 HOURS, INCUBATION TO CONTINUE FOR 4 DAYS. 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 -Fall -Sepsis, from suspected L[facility] HCAP -recent Left elbow MSSA abscess s/p I&D -COPD on 2l Home oxygen -Churg Eugenie on Cellcept/Prednisone -NHL -Right superfiical femoral/Left brachial DVT on xarelto -Alzhemer's dementia Plan: ID input noted, no fevers, leucocytosis or new concerns off antibiotics, Continue to hold antibotics. Blood/sputum cultures. Flu swab neg. f/u urine legionella/Strep pneumonia studies. Exam and CXR not fully convincing for pneumonia. Pulmonary input noted. Hold cellcept, resume in 24 hours if no concerns. Continue prednisone. Trauma w/u with head CT and knee/pelvis xrays neg. PT eval, fall precautions. Continue xarelto, ASA/statin/diltiazem Continue xanax, namenda, lexapro. dispo pending improvement in symptoms. 2nd fall within last month. ?ROSEMARY. Will get PT eval and address with assisted living about need for supervision and assistance and fall risk especially given on xarelto. Anticipate d/c in 24 hours if seen by PT and no new clinical concerns. Plan discussed with patient and RN.
--- NOTE | 2017-06-11 11:50 | PN ---
Progress Note (short form) - Note Progress Note: PULMONARY No current complaints. No further fevers. Last Vital Signs Temp Pulse Resp BP Pulse Ox 99 F 100 H 20 120/60 96 06/11/17 09:21 06/11/17 09:21 06/11/17 09:21 06/11/17 09:21 06/11/17 09:00 Gen: NAD in chair Heart: RRR Lung: decreased breath sounds at the bases Abd: soft, nontender Ext: no edema CBC, BMP 06/11/17 06:20 06/11/17 06:20 Active Medications Acetaminophen (Tylenol -) 650 mg PO Q6H PRN PRN Reason: FEVER OR PAIN Last Admin: 06/10/17 21:28 Dose: 650 mg Acetaminophen (Tylenol -) 650 mg PO Q6H PRN PRN Reason: pain Alprazolam (Xanax -) 0.25 mg PO DAILY [facility] Last Admin: 06/11/17 10:08 Dose: 0.25 mg Aspirin (Asa -) 81 mg PO DAILY [facility] Last Admin: 06/11/17 10:05 Dose: 81 mg Atorvastatin Calcium (Lipitor -) 10 mg PO HS [facility] Last Admin: 06/10/17 21:27 Dose: 10 mg Budesonide/Formoterol Fumarate (Symbicort 80/4.5mcg -) 1 puff IH BID [facility] Last Admin: 06/11/17 10:08 Dose: 1 puff Diltiazem HCl (Cardizem Cd -) 240 mg PO DAILY [facility] Last Admin: 06/11/17 10:05 Dose: 240 mg Docusate Sodium (Colace -) 200 mg PO DAILY [facility] Last Admin: 06/11/17 10:05 Dose: 200 mg Donepezil HCl (Aricept -) 10 mg PO DAILY [facility] Last Admin: 06/11/17 10:05 Dose: 10 mg Escitalopram Oxalate (Lexapro -) 10 mg PO DAILY [facility] Last Admin: 06/11/17 10:06 Dose: 10 mg Ferrous Sulfate (Feosol -) 325 mg PO DAILY [facility] Last Admin: 06/11/17 10:06 Dose: 325 mg Gabapentin (Neurontin -) 300 mg PO DAILY [facility] Last Admin: 06/11/17 10:07 Dose: 300 mg Gabapentin (Neurontin -) 600 mg PO HS [facility] Last Admin: 06/10/17 21:31 Dose: 600 mg Loratadine (Claritin -) 10 mg PO DAILY [facility] Last Admin: 06/11/17 10:05 Dose: 10 mg Memantine (Namenda -) 10 mg PO BID [facility] Last Admin: 06/11/17 10:07 Dose: 10 mg Oxybutynin Chloride (Ditropan -) 5 mg PO DAILY [facility] Last Admin: 06/11/17 10:06 Dose: 5 mg Polyethylene Glycol (Miralax (For Daily Use) -) 17 gm PO DAILY [facility] Last Admin: 06/11/17 10:07 Dose: 17 gm Prednisone (Deltasone -) 15 mg PO DAILY [facility] Last Admin: 06/11/17 10:06 Dose: 15 mg Rivaroxaban (Xarelto -) 20 mg PO DAILY [facility] Last Admin: 06/11/17 10:08 Dose: 20 mg Senna/Docusate Sodium (Pericolace -) 2 tablet PO HS [facility] Last Admin: 06/10/17 21:31 Dose: 2 tablet Tiotropium [place] (Spiriva -) 1 puff IH DAILY [facility] Last Admin: 06/11/17 10:07 Dose: 1 puff A/P s/p Fall r/o Pneumonia Sepsis Lactic Acidosis HTN Hyperlipidemia COPD Churgg Eugenie Disease h/o DVT Dementia - agree with monitoring off antibiotics - f/u cultures - continue chronic prednisone - inhaled bronchodilators - O2 to keep SpO2 >90% - continue anticoagulation Problem List - Problems (1) Pneumonia Code(s): J18.9 - PNEUMONIA, UNSPECIFIED ORGANISM (2) COPD (chronic obstructive pulmonary disease) Code(s): J44.9 - CHRONIC OBSTRUCTIVE PULMONARY DISEASE, UNSPECIFIED (3) Sepsis Code(s): A41.9 - SEPSIS, UNSPECIFIED ORGANISM (4) Dementia Code(s): F03.90 - UNSPECIFIED DEMENTIA WITHOUT BEHAVIORAL DISTURBANCE Qualifiers: Dementia type: unspecified type Dementia behavioral disturbance: without behavioral disturbance Qualified Code(s): F03.90 - Unspecified dementia without behavioral disturbance (5) Hypercholesteremia Code(s): E78.0 - PURE HYPERCHOLESTEROLEMIA * DO NOT USE * (6) Hypertension Code(s): I10 - ESSENTIAL (PRIMARY) HYPERTENSION (7) Hypothyroid Code(s): E03.9 - HYPOTHYROIDISM, UNSPECIFIED
--- NOTE | 2017-06-11 12:49 | CONS ---
DATE OF CONSULTATION: 06/10/2017 REQUESTED BY: Hospitalist service This is an 87-year-old woman, past medical history of Churg-Eugenie disease, on CellCept, and prednisone for COPD as well, who is brought to the emergency room status post a mechanical fall at the long-term. She was ambulating, when one of her legs gave out and she fell on her knee. There was no head trauma. The patient otherwise felt well. There was no nausea vomiting. She has no fevers, chills, or dysuria. In the emergency room, she was noted to have a temperature of 100.8. She was noted to be tachycardic on arrival as well. She had cultures drawn and she was started on antibiotics, vancomycin, Zosyn, and Zithromax. The patient is awake and alert. She is demented but she reports no shortness of breath or change in her cough or change in her respiratory symptoms. She has no abdominal pain or chest pain. She was recently in the hospital for a left arm infection. It is markedly improved with no residual cellulitis noted. Her past medical history is extensive and includes COPD, on home oxygen and prednisone, Alzheimer dementia, hypertension, hyperlipidemia, GERD, hypothyroidism, coronary artery disease, Churg-Eugenie syndrome, on mycophenolate, anxiety, depression. She is status post left lung lobectomy. She has the recent admission for a left olecranon bursitis with MSSA, requiring drainage of the olecranon. SOCIAL HISTORY: She is a former smoker. She lives in an assisted-living facility. No alcohol or drug use. She is allergic to levofloxacin. Her medications as an outpatient include albuterol inhaler, Xanax, aspirin, Lipitor, Symbicort, Os-Juan, diltiazem, Colace, Aricept, Lexapro, ferrous sulfate, gabapentin, loratadine, Namenda, mycophenolate, Pataday eyedrops, oxybutynin, MiraLax, prednisone, Xarelto, senna, and Spiriva. Her review of systems is essentially unremarkable. PHYSICAL EXAMINATION: Vital Signs: Temperature of 98.7. Pulse of 89. Blood pressure 110/54. Respiratory rate of 20. She was resting quite comfortably. HEENT: Normocephalic. Eyes are anicteric. Neck: Supple. Abdomen: Soft, nontender. Heart: Regular rate and rhythm. Lungs: Clear to auscultation. Extremities: Her left arm is the size of her right arm now and there is minimal induration of the elbow. There is no erythema, no drainage. Extremities are without edema. White count on admission was 11.3, hemoglobin of 8.9, platelets 378. BUN 16, creatinine 0.9. Urinalysis was unremarkable except for glucose. Cultures are pending at this time. Chest x-ray is read as essentially unchanged from prior. In summary, this is an 87-year-old status post mechanical fall, treated with vancomycin, Zosyn, and Zithromax for HCAP in the emergency room. She has no respiratory complaints or changes on x-ray. She looks quite well, is resting comfortably. Urinalysis is negative. The transient elevated temperature is resolved. Would suggest at this time that we stop her antibiotics and observe and follow cultures. No source has been identified and she has received 24 hours' worth of antibiotics with the regimen she received in the ER. Further recommendations to follow. Kristy [id number]
[2017-06-11] MEDS: ATORVASTATIN CA 10 MG TABLET (FP) PO SCH (21:23)
[2017-06-11] MEDS: SENNOSIDES/DOCUSATE COMBO (SENNA PLUS) TABLET (UD) PO SCH (21:26)
[2017-06-12] MEDS: ALBUTEROL SO4 2.5/IPRATROPIUM 0.5 INH SOL 3 ML VIAL.NEB. NEB PRN ×4 (07:23→22:49)
[2017-06-12 07:29] LABS: BASOPHIL 0.5 % (0-2.0); EOSINOPHIL 1.2 % (0-4.5); MCH 26.6 pg (25.7-33.7); MCHC 31.4 g/dl (32.0-36.0); MEAN CELL VOLUME 84.6 fl (80-96); MEAN PLT VOLUME 8.7 fl (7.5-11.1); NEUTROPHILS 75.1 % (42.8-82.8); PLATELET COUNT 319 K/MM3 (134-434); RDW 18.2 % (11.6-15.6); WHITE BLOOD COUNT 10.1 K/mm3 (4.0-10.0)
[2017-06-12] MEDS ORDERED: guaiFENesin/D-METHORPHAN HB 10 ML UNIT-DOSE CUPS PO ONE (07:33)
--- NOTE | 2017-06-12 07:56 | PN ---
Physical Exam: SUBJECTIVE: Patient seen and examined. Coughing more this AM with some audible wheezes. States that she doesn't feel like herself. Has not gotten breathing treatment in a while.. OBJECTIVE: Vital Signs Period Temp Pulse Resp BP Sys/Bahena Pulse Ox Last 24 Hr 98.2 F-99 F 97-109 20-22 96-134/54-77 96 GEN: AAOx1, NAD, Coughing without sputum production HEENT: PERRLA, EOMi CV: S1, S2, RRR LUNG: Prolonged expiratory phases, expiratory wheezing noted bilaterally ABD: Soft, NT, ND, normoactive BS MSK: No edema, mild hematoma on L kneecap Active Medications Generic Name Dose Route Start Last Admin Trade Name Freq PRN Reason Stop Dose Admin Acetaminophen 650 mg 06/10/17 04:41 06/10/17 21:28 Tylenol - PO 650 mg Q6H PRN Administration FEVER OR PAIN Acetaminophen 650 mg 06/10/17 12:27 Tylenol - PO Q6H PRN pain Albuterol Sulfate 1 - 2 puff 06/12/17 10:00 Ventolin Hfa Inhaler - IH QID BEVERLY Albuterol/Ipratropium 1 amp 06/12/17 07:15 06/12/17 07:23 Duoneb - NEB 1 amp Q6H PRN Administration SHORTNESS OF BREATH Alprazolam 0.25 mg 06/10/17 10:00 06/11/17 10:08 Xanax - PO 0.25 mg DAILY BEVERLY Administration Aspirin 81 mg 06/10/17 10:00 06/11/17 10:05 Asa - PO 81 mg DAILY BEVERLY Administration Atorvastatin Calcium 10 mg 06/10/17 22:00 06/11/17 21:23 Lipitor - PO 10 mg HS BEVERLY Administration Budesonide/Formoterol Fumarate 1 puff 06/10/17 10:00 06/11/17 21:27 Symbicort 80/4.5mcg - IH 1 puff BID BEVERLY Administration Diltiazem HCl 240 mg 06/10/17 10:00 06/11/17 10:05 Cardizem Cd - PO 240 mg DAILY BEVERLY Administration Docusate Sodium 200 mg 06/10/17 10:00 06/11/17 10:05 Colace - PO 200 mg DAILY BEVER[facility] Administration Donepezil HCl 10 mg 06/10/17 10:00 06/11/17 10:05 Aricept - PO 10 mg DAILY BEVERLY Administration Escitalopram Oxalate 10 mg 06/10/17 10:00 06/11/17 10:06 Lexapro - PO 10 mg DAILY BEVER[facility] Administration Ferrous Sulfate 325 mg 06/10/17 10:00 06/11/17 10:06 Feosol - PO 325 mg DAILY BEVER[facility] Administration Gabapentin 300 mg 06/11/17 10:00 06/11/17 10:07 Neurontin - PO 300 mg DAILY BEVERLY Administration Gabapentin 600 mg 06/10/17 22:00 06/11/17 21:23 Neurontin - PO 600 mg HS BEVERLY Administration Guaifenesin 10 ml 06/12/17 07:33 Robitussin Dm - PO 06/12/17 07:34 ONCE ONE Loratadine 10 mg 06/11/17 10:00 06/11/17 10:05 Claritin - PO 10 mg DAILY B[facility] Administration Memantine 10 mg 06/10/17 10:00 06/11/17 21:25 Namenda - PO 10 mg BID BEVERLY Administration Oxybutynin Chloride 5 mg 06/10/17 10:00 06/11/17 10:06 Ditropan - PO 5 mg DAILY BEVER[facility] Administration Polyethylene Glycol 17 gm 06/10/17 10:00 06/11/17 10:07 Miralax (For Daily Use) - PO 17 gm DAILY B[facility] Administration Prednisone 15 mg 06/10/17 14:45 06/11/17 10:06 Deltasone - PO 15 mg DAILY B[facility] Administration Rivaroxaban 20 mg 06/10/17 10:00 06/11/17 10:08 Xarelto - PO 20 mg DAILY B[facility] Administration Senna/Docusate Sodium 2 tablet 06/10/17 22:00 06/11/17 21:26 Pericolace - PO 2 tablet HS BEVERLY Administration Tiotropium [place] 1 puff 06/10/17 10:00 06/11/17 10:07 Spiriva - IH 1 puff DAILY BEVERLY Administration ASSESSMENT/PLAN: Patient is an 87 year old female who was BIBEMS s/p mechanical fall and was found to be septic. Patient admitted for further monitoring and management. # S/p Fall - No fractures, no TTP, no pain, has superficial L knee hematoma. Daughter (HCP ) concerned since patient is now having frequent falls, and on AC. Walked only 5 feet with PT. Gualberto sent for SNF. SW on the case. # +SIRS - Unlikely HCAP, off of broad spectrum abx. Today, patient has continued cough with increased expiratory wheeze. CXR unchanged. Possible patient had viral pathogen to set off bronchitis. Respiratory panel ordered. Will start 3 day course of Azithromycin 500mg PO and slow Prednisone taper, starting 30mg today # COPD/Asthma - Patient had expiratory wheezes this AM, will order nebulizer treatments, continue Albuterol inhalers, Spiriva, Symbicort # Hx of Churgg Eguenie - Pt is on home prednisone, but will now be started on prednisone taper. HOLD Cellcept for now, but can restart upon d/c # Hx of L brachial DVT - Continue Xarelto # Normocytic Anemia - Continue Ferrous Sulfate # Hx of CAD - continue ASA # Alzheimer dementia - continue Donepezil # HTN - continue Cardizem # HLD - continue Lipitor # Hypothyroidism - continue Synthroid # Overactive Bladder - continue Oxybutynin # Neuropathy - Continue Gabapentin # Anxiety/Depression - continue Xanax and Lexapro # GERD - continue Zantac # Constipation - continue Senna, Colace, and Miralax # FEN/PPx - No fluids necessary low sodium diet, On Xarelto # Dispo - Continue breathing treatments. Patient does not walk well with PT. Needs [facility]. [facility]to sent by [facility]. d/w Dr Son Hernadez MD - PGY1 Resident Internal Medicine Visit type - Emergency Visit Emergency Visit: No - New Patient This patient is new to me today: No - Critical Care Critical Care patient: No - Discharge Referral Referred to [facility] Med P.C.: No
[2017-06-12] MEDS ORDERED: PT OWN MED DRAWER 7, Y5N ONE ×2 (09:30→21:31)
[2017-06-12] MEDS: FERROUS SO4 325 MG TABLET (FP) PO SCH (09:39)
[2017-06-12] MEDS: predniSONE 5 MG TABLET (UD) PO SCH (09:39)
[2017-06-12] MEDS: DOCUSATE SODIUM 100 MG CAPSULE (FP) PO SCH (09:40)
[2017-06-12] MEDS: MEMANTINE HCL 10 MG TABLET (FP) PO SCH ×2 (09:40→22:25)
[2017-06-12] MEDS: OXYBUTYNIN CHLORIDE 5 MG TABLET PO SCH (09:40)
[2017-06-12] MEDS: LORATADINE 10 MG TABLET PO SCH (09:40)
[2017-06-12] MEDS: GABAPENTIN 300 MG CAPSULE (FP) PO SCH ×2 (09:40→22:25)
[2017-06-12] MEDS: RIVAROXABAN 20 MG TABLET PO SCH (09:40)
[2017-06-12] MEDS: DONEPEZIL HCL 10 MG TABLET (FP) PO SCH (09:40)
[2017-06-12] MEDS: ALPRAZolam 0.25 MG TABLET PO SCH (09:40)
[2017-06-12] MEDS: ALBUTEROL SO4 18 GM HFA INHALER IH SCH ×4 (09:40→22:26)
[2017-06-12] MEDS: ASPIRIN 81 MG CHEWABLE TABLETS PO SCH (09:40)
[2017-06-12] MEDS: ESCITALOPRAM OXALATE 10 MG TABLET (FP) PO SCH (09:40)
[2017-06-12] MEDS: TIOTROPIUM BROMIDE 18 MCG/INH (DEVICE W/ 5 CAPSULES) IH SCH (09:41)
[2017-06-12] MEDS: POLYETHYLENE GLYCOL 3350 119 GM BTL PO SCH (09:41)
[2017-06-12] MEDS: BUDESONIDE/FORMETEROL FUMARATE 80/4.5 mcg INHALER IH SCH ×2 (09:41→22:26)
--- NOTE | 2017-06-12 10:36 | PN ---
Progress Note (short form) - Note Progress Note: PULMONARY No events overnight. No current complaints. No further fevers. Last Vital Signs Temp Pulse Resp BP Pulse Ox 98.2 F 109 H 22 114/77 96 06/12/17 06:00 06/12/17 06:00 06/12/17 06:00 06/12/17 06:00 06/11/17 09:00 Gen: NAD in chair Heart: RRR Lung: decreased breath sounds at the bases, scattered wheezes Abd: soft, nontender Ext: no edema CBC, BMP 06/12/17 06:30 06/11/17 06:20 Active Medications Acetaminophen (Tylenol -) 650 mg PO Q6H PRN PRN Reason: FEVER OR PAIN Last Admin: 06/10/17 21:28 Dose: 650 mg Acetaminophen (Tylenol -) 650 mg PO Q6H PRN PRN Reason: pain Albuterol Sulfate (Ventolin Hfa Inhaler -) 1 - 2 puff IH QID [facility] Last Admin: 06/12/17 09:40 Dose: 1 puff Albuterol/Ipratropium (Duoneb -) 1 amp NEB Q6H PRN PRN Reason: SHORTNESS OF BREATH Last Admin: 06/12/17 07:23 Dose: 1 amp Alprazolam (Xanax -) 0.25 mg PO DAILY [facility] Last Admin: 06/12/17 09:40 Dose: 0.25 mg Aspirin (Asa -) 81 mg PO DAILY [facility] Last Admin: 06/12/17 09:40 Dose: 81 mg Atorvastatin Calcium (Lipitor -) 10 mg PO HS [facility] Last Admin: 06/11/17 21:23 Dose: 10 mg Budesonide/Formoterol Fumarate (Symbicort 80/4.5mcg -) 1 puff IH BID [facility] Last Admin: 06/12/17 09:41 Dose: 1 puff Diltiazem HCl (Cardizem Cd -) 240 mg PO DAILY [facility] Last Admin: 06/12/17 09:40 Dose: 240 mg Docusate Sodium (Colace -) 200 mg PO DAILY [facility] Last Admin: 06/12/17 09:40 Dose: 200 mg Donepezil HCl (Aricept -) 10 mg PO DAILY [facility] Last Admin: 06/12/17 09:40 Dose: 10 mg Escitalopram Oxalate (Lexapro -) 10 mg PO DAILY [facility] Last Admin: 06/12/17 09:40 Dose: 10 mg Ferrous Sulfate (Feosol -) 325 mg PO DAILY [facility] Last Admin: 06/12/17 09:39 Dose: 325 mg Gabapentin (Neurontin -) 300 mg PO DAILY [facility] Last Admin: 06/12/17 09:40 Dose: 300 mg Gabapentin (Neurontin -) 600 mg PO HS [facility] Last Admin: 06/11/17 21:23 Dose: 600 mg Loratadine (Claritin -) 10 mg PO DAILY [facility] Last Admin: 06/12/17 09:40 Dose: 10 mg Memantine (Namenda -) 10 mg PO BID [facility] Last Admin: 06/12/17 09:40 Dose: 10 mg Oxybutynin Chloride (Ditropan -) 5 mg PO DAILY [facility] Last Admin: 06/12/17 09:40 Dose: 5 mg Polyethylene Glycol (Miralax (For Daily Use) -) 17 gm PO DAILY [facility] Last Admin: 06/12/17 09:41 Dose: 17 gm Prednisone (Deltasone -) 15 mg PO DAILY [facility] Last Admin: 06/12/17 09:39 Dose: 15 mg Rivaroxaban (Xarelto -) 20 mg PO DAILY [facility] Last Admin: 06/12/17 09:40 Dose: 20 mg Senna/Docusate Sodium (Pericolace -) 2 tablet PO HS [facility] Last Admin: 06/11/17 21:26 Dose: 2 tablet Tiotropium [place] (Spiriva -) 1 puff IH DAILY [facility] Last Admin: 06/12/17 09:41 Dose: 1 puff A/P s/p Fall URI Sepsis resolved Lactic Acidosis resolved HTN Hyperlipidemia COPD Churgg Eugenie Disease h/o DVT Dementia - monitoring off antibiotics - f/u cultures - continue chronic prednisone - inhaled bronchodilators - O2 to keep SpO2 >90% - continue anticoagulation - agree with short term rehab due to frequent falls Problem List - Problems (1) Pneumonia Code(s): J18.9 - PNEUMONIA, UNSPECIFIED ORGANISM (2) COPD (chronic obstructive pulmonary disease) Code(s): J44.9 - CHRONIC OBSTRUCTIVE PULMONARY DISEASE, UNSPECIFIED (3) Sepsis Code(s): A41.9 - SEPSIS, UNSPECIFIED ORGANISM (4) Dementia Code(s): F03.90 - UNSPECIFIED DEMENTIA WITHOUT BEHAVIORAL DISTURBANCE Qualifiers: Dementia type: unspecified type Dementia behavioral disturbance: without behavioral disturbance Qualified Code(s): F03.90 - Unspecified dementia without behavioral disturbance (5) Hypercholesteremia Code(s): E78.0 - PURE HYPERCHOLESTEROLEMIA * DO NOT USE * (6) Hypertension Code(s): I10 - ESSENTIAL (PRIMARY) HYPERTENSION (7) Hypothyroid Code(s): E03.9 - HYPOTHYROIDISM, UNSPECIFIED
--- NOTE | 2017-06-12 11:05 | PN ---
Progress Note (short form) - Note Progress Note: no fever since admission alert no complaints occasional cough Vital Signs Period Temp Pulse Resp BP Sys/Bahena Pulse Ox Last 24 Hr 98.2 F-98.6 F 97-109 20-22 96-134/54-77 cor-rrr lungs clear abd soft,nt ext ecchymosis left leg CBC, BMP 06/12/17 06:30 06/11/17 06:20 Microbiology 06/09/17 20:52 Blood - Peripheral Venous Blood Culture - Preliminary NO GROWTH OBTAINED AFTER 48 HOURS, INCUBATION TO CONTINUE FOR 3 DAYS. 06/09/17 20:52 Blood - Peripheral Venous Blood Culture - Preliminary NO GROWTH OBTAINED AFTER 48 HOURS, INCUBATION TO CONTINUE FOR 3 DAYS. 06/10/17 04:10 Urine - Urine Clean Catch Urine Culture - Final NO GROWTH OBTAINED 06/10/17 04:15 Nasopharyngeal Swab Influenza Types A,B Antigen (NATHAN) - Final 06/10/17 04:15 Nasopharyngeal Swab - Final cxray unchanged chronic changes a/p clinically looks well with no complaints fever resolved stable off antibiotics please call back if needed Problem List - Problems (1) Fever Code(s): R50.9 - FEVER, UNSPECIFIED (2) Status post fall Code(s): Z91.81 - HISTORY OF FALLING
[2017-06-12] MEDS ORDERED: predniSONE 20 MG TABLET (UD) PO SCH (11:45)
[2017-06-12] MEDS: AZITHROMYCIN 250 MG TABLET PO SCH (12:05)
--- NOTE | 2017-06-12 12:10 | PN ---
Teaching Attending Note Name of Resident: Harini Hernadez ATTENDING PHYSICIAN STATEMENT Time of evaluation: 9:30 AM I saw and evaluated the patient. I reviewed the resident's note and discussed the case with the resident. I agree with the resident's findings and plan as documented. SUBJECTIVE: Patient seen and examined. Coughing today, no complaints, Denies fevers, chills or dyspnea, abdominal or urinary symptoms. Eating well. OBJECTIVE: Vital Signs Period Temp Pulse Resp BP Sys/Bahena Pulse Ox Last 24 Hr 98.2 F-98.6 F 97-109 20-22 96-134/54-77 Intake & Output 06/09/17 06/10/17 06/11/17 06/12/17 23:59 23:59 23:59 23:59 Intake Total 700 940 180 Balance 700 940 180 Weight 153 lb 142 lb 9 oz General: sitting in bed in no acute distress CVS:S1S2 regular Chest: scattered expiratory wheezing Abdomen: soft, NT extremities: chronic ecchymosis, unchanged Home Medication List Medication Instructions Recorded Confirmed Type Aa/Hydrolyzed Collagen, Whey [Lps 960 ml PO DAILY 06/09/17 06/09/17 History Neutral Flavor Liquid] Acetaminophen [Mapap] 650 mg PO QID PRN 06/09/17 06/09/17 History Albuterol Sulfate [Proventil HFA 1 - 2 inh PO QID 06/09/17 06/09/17 History Inhaler -] Alprazolam [Xanax] 0.25 mg PO DAILY 06/09/17 06/09/17 History Aspirin [ASA -] 81 mg PO DAILY 06/09/17 06/09/17 History Atorvastatin Ca [Lipitor] 10 mg PO HS 06/09/17 06/09/17 History Bacitracin - [Bacitracin Topical 1 applic TP DAILY 06/09/17 06/09/17 History Ointment -] Budesonide/Formeterol Fumarate 1 inh PO BID 06/09/17 06/09/17 History [SYMBICORT 80/4.5mcg -] Calcium Carbonate/Vitamin D3 1 each PO BID 06/09/17 06/09/17 History [Oyster Shell 500-Vit D3 200 Tb] Diltiazem Cd [Cardizem Cd -] 240 mg PO DAILY 06/09/17 06/09/17 History Docusate Sodium [Colace -] 200 mg PO DAILY 06/09/17 06/09/17 History Donepezil HCl [Aricept] 10 mg PO DAILY 06/09/17 06/09/17 History Escitalopram Oxalate [Lexapro -] 10 mg PO DAILY 06/09/17 06/09/17 History Ferrous Sulfate 325 mg PO DAILY 06/09/17 06/09/17 History Gabapentin 300 mg PO DAILY 06/09/17 06/09/17 History Gabapentin 600 mg PO HS 06/09/17 06/09/17 History Loratadine 10 mg PO DAILY 06/09/17 06/09/17 History Memantine HCl [Namenda -] 10 mg PO BID 06/09/17 06/09/17 History Mycophenolate Mofetil [Cellcept] 500 mg PO DAILY 06/09/17 06/09/17 History Olopatadine HCl [Pataday] 2.5 ml OP DAILY 06/09/17 06/09/17 History Oxybutynin Chloride 5 mg PO DAILY 06/09/17 06/09/17 History Polyethylene Glycol 3350 [Miralax 17 gm PO DAILY 06/09/17 06/09/17 History (For Daily Use) -] Prednisone 15 mg PO DAILY 06/09/17 06/09/17 History Rivaroxaban [Xarelto -] 20 mg PO DAILY 06/09/17 06/09/17 History Sennosides/Docusate Sodium [Senna 2 each PO HS 06/09/17 06/09/17 History Laxative Tablet] Tiotropium [place] [Spiriva] 1 inh PO DAILY 06/09/17 06/09/17 History Active Medications Generic Name Dose Route Start Last Admin Trade Name Freq PRN Reason Stop Dose Admin Acetaminophen 650 mg 06/10/17 04:41 06/10/17 21:28 Tylenol - PO 650 mg Q6H PRN Administration FEVER OR PAIN Acetaminophen 650 mg 06/10/17 12:27 Tylenol - PO Q6H PRN pain Albuterol Sulfate 1 - 2 puff 06/12/17 10:00 06/12/17 09:40 Ventolin Hfa Inhaler - IH 1 puff QID B[facility]LY Administration Albuterol/Ipratropium 1 amp 06/12/17 07:15 06/12/17 07:23 Duoneb - NEB 1 amp Q6H PRN Administration SHORTNESS OF BREATH Alprazolam 0.25 mg 06/10/17 10:00 06/12/17 09:40 Xanax - PO 0.25 mg DAILY B[facility] Administration Aspirin 81 mg 06/10/17 10:00 06/12/17 09:40 Asa - PO 81 mg DAILY [facility] Administration Atorvastatin Calcium 10 mg 06/10/17 22:00 06/11/17 21:23 Lipitor - PO 10 mg HS B[facility] Administration Azithromycin 500 mg 06/12/17 11:45 06/12/17 12:05 Zithromax - PO 500 mg DAILY [facility] Administration Budesonide/Formoterol Fumarate 1 puff 06/10/17 10:00 06/12/17 09:41 Symbicort 80/4.5mcg - IH 1 puff BID B[facility] Administration Diltiazem HCl 240 mg 06/10/17 10:00 06/12/17 09:40 Cardizem Cd - PO 240 mg DAILY [facility] Administration Docusate Sodium 200 mg 06/10/17 10:00 06/12/17 09:40 Colace - PO 200 mg DAILY [facility] Administration Donepezil HCl 10 mg 06/10/17 10:00 06/12/17 09:40 Aricept - PO 10 mg DAILY [facility] Administration Escitalopram Oxalate 10 mg 06/10/17 10:00 06/12/17 09:40 Lexapro - PO 10 mg DAILY [facility] Administration Ferrous Sulfate 325 mg 06/10/17 10:00 06/12/17 09:39 Feosol - PO 325 mg DAILY [facility] Administration Gabapentin 300 mg 06/11/17 10:00 06/12/17 09:40 Neurontin - PO 300 mg DAILY [facility] Administration Gabapentin 600 mg 06/10/17 22:00 06/11/17 21:23 Neurontin - PO 600 mg HS B[facility]LY Administration Loratadine 10 mg 06/11/17 10:00 06/12/17 09:40 Claritin - PO 10 mg DAILY [facility] Administration Memantine 10 mg 06/10/17 10:00 06/12/17 09:40 Namenda - PO 10 mg BID B[facility] Administration Oxybutynin Chloride 5 mg 06/10/17 10:00 06/12/17 09:40 Ditropan - PO 5 mg DAILY [facility] Administration Polyethylene Glycol 17 gm 06/10/17 10:00 06/12/17 09:41 Miralax (For Daily Use) - PO 17 gm DAILY [facility] Administration Prednisone 30 mg 06/12/17 12:15 Deltasone - PO DAILY B[facility] Rivaroxaban 20 mg 06/10/17 10:00 06/12/17 09:40 Xarelto - PO 20 mg DAILY [facility] Administration Senna/Docusate Sodium 2 tablet 06/10/17 22:00 06/11/17 21:26 Pericolace - PO 2 tablet HS B[facility]LY Administration Tiotropium [place] 1 puff 06/10/17 10:00 06/12/17 09:41 Spiriva - IH 1 puff DAILY [facility] Administration Laboratory Results - last 24 hr 06/12/17 06:30 WBC 10.1 H D RBC 3.48 L Hgb 9.3 L Hct 29.5 L MCV 84.6 MCH 26.6 MCHC 31.4 L RDW 18.2 H Plt Count 319 MPV 8.7 Neutrophils % 75.1 Lymphocytes % 9.9 D Monocytes % 13.3 H Eosinophils % 1.2 Basophils % 0.5 Microbiology 06/09/17 20:52 Blood - Peripheral Venous Blood Culture - Preliminary NO GROWTH OBTAINED AFTER 48 HOURS, INCUBATION TO CONTINUE FOR 3 DAYS. 06/09/17 20:52 Blood - Peripheral Venous Blood Culture - Preliminary NO GROWTH OBTAINED AFTER 48 HOURS, INCUBATION TO CONTINUE FOR 3 DAYS. 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 -Fall -SIRS, suspect URI like illness with mild bronchitis, no clinical concerns for PNA -recent Left elbow MSSA abscess s/p I&D -COPD on 2l Home oxygen -Churg Eugenie on Cellcept/Prednisone -NHL -Right superfiical femoral/Left brachial DVT on xarelto -Alzhemer's dementia Plan: ID input noted, no fevers, leucocytosis or new concerns off antibiotics, Wheezy today with some cough, no fevers or leucocytosis. Suspect fevers on admission likely from URI like illness now with mild bronchitis. 3 days course of azithromycin. Short prednisone taper, 30 mg today, then taper every2 days till reaches home 15 mg. Blood/sputum cultures. Flu swab neg. f/u urine legionella/Strep pneumonia studies. Exam and CXR not convincing for pneumonia. Pulmonary input noted. Hold cellcept, resume on d.c Trauma w/u with head CT and knee/pelvis xrays neg. PT eval, fall precautions. Continue xarelto, ASA/statin/diltiazem Continue xanax, namenda, lexapro. dispo pending improvement in symptoms. 2nd fall within last month. Seen by PT, recommended [facility]. Discussed with CM, awaiting disposition arrangements. D/c when arranged.
[2017-06-12] MEDS: predniSONE 10 MG TABLET (UD) PO SCH (13:59)
[2017-06-12] MEDS: ATORVASTATIN CA 10 MG TABLET (FP) PO SCH (22:23)
[2017-06-12] MEDS: SENNOSIDES/DOCUSATE COMBO (SENNA PLUS) TABLET (UD) PO SCH (22:25)
[2017-06-13] MEDS: ALBUTEROL SO4 2.5/IPRATROPIUM 0.5 INH SOL 3 ML VIAL.NEB. NEB PRN ×4 (06:37→22:30)
--- NOTE | 2017-06-13 08:09 | PN ---
Physical Exam: SUBJECTIVE: Patient seen and examined. Doing well. Coughing less. Breathign is much improved. Feels back to normal OBJECTIVE: Vital Signs Period Temp Pulse Resp BP Sys/Bahena Pulse Ox Last 24 Hr 97.9 F-99.3 F 94-109 18-22 97-143/52-82 94 GEN: AAOx1, NAD, no longer coughing HEENT: PERRLA, EOMi CV: S1, S2, RRR LUNG: Expiratory wheezes, good air movement ABD: Soft, NT, ND, normoactive BS MSK: No edema, mild hematoma on L kneecap Active Medications Generic Name Dose Route Start Last Admin Trade Name Freq PRN Reason Stop Dose Admin Acetaminophen 650 mg 06/10/17 04:41 06/10/17 21:28 Tylenol - PO 650 mg Q6H PRN Administration FEVER OR PAIN Acetaminophen 650 mg 06/10/17 12:27 Tylenol - PO Q6H PRN pain Albuterol Sulfate 1 - 2 puff 06/12/17 10:00 06/12/17 22:26 Ventolin Hfa Inhaler - IH 1 puff QID BEVERLY Administration Albuterol/Ipratropium 1 amp 06/12/17 07:15 06/13/17 06:37 Duoneb - NEB 1 amp Q6H PRN Administration SHORTNESS OF BREATH Alprazolam 0.25 mg 06/10/17 10:00 06/12/17 09:40 Xanax - PO 0.25 mg DAILY BEVERLY Administration Aspirin 81 mg 06/10/17 10:00 06/12/17 09:40 Asa - PO 81 mg DAILY BEVERLY Administration Atorvastatin Calcium 10 mg 06/10/17 22:00 06/12/17 22:23 Lipitor - PO 10 mg HS BEVERLY Administration Azithromycin 500 mg 06/12/17 11:45 06/12/17 12:05 Zithromax - PO 500 mg DAILY BEVERLY Administration Budesonide/Formoterol Fumarate 1 puff 06/10/17 10:00 06/12/17 22:26 Symbicort 80/4.5mcg - IH 1 puff BID BEVERLY Administration Diltiazem HCl 240 mg 06/10/17 10:00 06/12/17 09:40 Cardizem Cd - PO 240 mg DAILY BEVERLY Administration Docusate Sodium 200 mg 06/10/17 10:00 06/12/17 09:40 Colace - PO 200 mg DAILY BEVERLY Administration Donepezil HCl 10 mg 06/10/17 10:00 06/12/17 09:40 Aricept - PO 10 mg DAILY BEVERLY Administration Escitalopram Oxalate 10 mg 06/10/17 10:00 06/12/17 09:40 Lexapro - PO 10 mg DAILY BEVERLY Administration Ferrous Sulfate 325 mg 06/10/17 10:00 06/12/17 09:39 Feosol - PO 325 mg DAILY BEVERLY Administration Gabapentin 300 mg 06/11/17 10:00 06/12/17 09:40 Neurontin - PO 300 mg DAILY BEVERLY Administration Gabapentin 600 mg 06/10/17 22:00 06/12/17 22:25 Neurontin - PO 600 mg HS BEVERLY Administration Loratadine 10 mg 06/11/17 10:00 06/12/17 09:40 Claritin - PO 10 mg DAILY BEVERLY Administration Memantine 10 mg 06/10/17 10:00 06/12/17 22:25 Namenda - PO 10 mg BID BEVERLY Administration Oxybutynin Chloride 5 mg 06/10/17 10:00 06/12/17 09:40 Ditropan - PO 5 mg DAILY BEVERLY Administration Polyethylene Glycol 17 gm 06/10/17 10:00 06/12/17 09:41 Miralax (For Daily Use) - PO 17 gm DAILY BEVERLY Administration Prednisone 30 mg 06/12/17 12:15 06/12/17 13:59 Deltasone - PO 30 mg DAILY BEVERLY Administration Rivaroxaban 20 mg 06/10/17 10:00 06/12/17 09:40 Xarelto - PO 20 mg DAILY BEVERLY Administration Senna/Docusate Sodium 2 tablet 06/10/17 22:00 06/12/17 22:25 Pericolace - PO 2 tablet HS BEVERLY Administration Tiotropium [place] 1 puff 06/10/17 10:00 06/12/17 09:41 Spiriva - IH 1 puff DAILY BEVERLY Administration ASSESSMENT/PLAN: Patient is an 87 year old female who was BIBEMS s/p mechanical fall and was found to be septic. Patient admitted for further monitoring and management. # S/p Fall - No fractures, no TTP, no pain, has superficial L knee hematoma. Pt walked only 15 feet with PT. [facility] sent for SNF, awaiting approval # +SIRS - Unlikely HCAP, possibly bronchitis. Day 2/3 of Azithromycin 500mg PO and slow Prednisone taper, Day two of 30mg daily. Will start 25mg tomorrow x2, then 20mg x2, then return to 15mg daily home dose # COPD/Asthma - Continue Albuterol inhalers and nebulizer treatments, Spiriva, Symbicort # Hx of Paolo Traore - Pt is on home prednisone, but will start prednisone taper. HOLD Cellcept for now, but can restart upon d/c # Hx of L brachial DVT - Continue Xarelto # Normocytic Anemia - Continue Ferrous Sulfate # Hx of CAD - continue ASA # Alzheimer dementia - continue Donepezil # HTN - continue Cardizem # HLD - continue Lipitor # Hypothyroidism - continue Synthroid # Overactive Bladder - continue Oxybutynin # Neuropathy - Continue Gabapentin # Anxiety/Depression - continue Xanax and Lexapro # GERD - continue Zantac # Constipation - continue Senna, Colace, and Miralax # FEN/PPx - No fluids necessary low sodium diet, On Xarelto # Dispo - Medically optimized for d/c. However, patient does not walk well with PT. Falls recently. [facility] sent for [facility]. Has bed, but waiting insurance authorization d/w Dr Christa Hernadez MD - PGY1 Resident Internal Medicine Visit type - Emergency Visit Emergency Visit: No - New Patient This patient is new to me today: No - Critical Care Critical Care patient: No - Discharge Referral Referred to [facility] No
[2017-06-13 08:21] LABS: BASOPHIL 0.2 % (0-2.0); EOSINOPHIL 0.1 % (0-4.5); MCH 26.4 pg (25.7-33.7); MCHC 31.4 g/dl (32.0-36.0); MEAN PLT VOLUME 8.2 fl (7.5-11.1); NEUTROPHILS 71.1 % (42.8-82.8); PLATELET COUNT 300 K/MM3 (134-434); RDW 18.3 % (11.6-15.6)
[2017-06-13] MEDS ORDERED: PT OWN MED DRAWER 7, Y5N ONE (09:03)
[2017-06-13] MEDS: LORATADINE 10 MG TABLET PO SCH (09:45)
[2017-06-13] MEDS: AZITHROMYCIN 250 MG TABLET PO SCH (09:45)
[2017-06-13] MEDS: ESCITALOPRAM OXALATE 10 MG TABLET (FP) PO SCH (09:45)
[2017-06-13] MEDS: MEMANTINE HCL 10 MG TABLET (FP) PO SCH ×2 (09:45→21:09)
[2017-06-13] MEDS: ASPIRIN 81 MG CHEWABLE TABLETS PO SCH (09:45)
[2017-06-13] MEDS: DOCUSATE SODIUM 100 MG CAPSULE (FP) PO SCH (09:45)
[2017-06-13] MEDS: ALPRAZolam 0.25 MG TABLET PO SCH (09:45)
[2017-06-13] MEDS: OXYBUTYNIN CHLORIDE 5 MG TABLET PO SCH (09:45)
[2017-06-13] MEDS: predniSONE 10 MG TABLET (UD) PO SCH (09:45)
[2017-06-13] MEDS: POLYETHYLENE GLYCOL 3350 119 GM BTL PO SCH (09:45)
[2017-06-13] MEDS: RIVAROXABAN 20 MG TABLET PO SCH (09:45)
[2017-06-13] MEDS: GABAPENTIN 300 MG CAPSULE (FP) PO SCH ×2 (09:45→21:09)
[2017-06-13] MEDS: FERROUS SO4 325 MG TABLET (FP) PO SCH (09:45)
[2017-06-13] MEDS: DONEPEZIL HCL 10 MG TABLET (FP) PO SCH (09:45)
[2017-06-13] MEDS: BUDESONIDE/FORMETEROL FUMARATE 80/4.5 mcg INHALER IH SCH ×2 (09:46→21:10)
[2017-06-13] MEDS: TIOTROPIUM BROMIDE 18 MCG/INH (DEVICE W/ 5 CAPSULES) IH SCH (09:46)
[2017-06-13] MEDS: ALBUTEROL SO4 18 GM HFA INHALER IH SCH ×4 (09:46→21:14)
[2017-06-13] MEDS ORDERED: PREDNISONE PO SCH (10:00)
--- NOTE | 2017-06-13 11:13 | PN ---
Progress Note (short form) - Note Progress Note: PULMONARY No events overnight. Denies current complaints. No further fevers. Last Vital Signs Temp Pulse Resp BP Pulse Ox 97.9 F 100 H 18 143/69 94 L 06/13/17 07:48 06/13/17 07:48 06/13/17 07:48 06/13/17 07:48 06/12/17 09:00 Gen: NAD in chair Heart: RRR Lung: decreased breath sounds at the bases, scattered wheezes Abd: soft, nontender Ext: no edema CBC, BMP 06/13/17 07:45 06/11/17 06:20 Active Medications Acetaminophen (Tylenol -) 650 mg PO Q6H PRN PRN Reason: FEVER OR PAIN Last Admin: 06/10/17 21:28 Dose: 650 mg Acetaminophen (Tylenol -) 650 mg PO Q6H PRN PRN Reason: pain Albuterol Sulfate (Ventolin Hfa Inhaler -) 1 - 2 puff IH QID [facility] Last Admin: 06/13/17 09:46 Dose: 1 puff Albuterol/Ipratropium (Duoneb -) 1 amp NEB Q6H PRN PRN Reason: SHORTNESS OF BREATH Last Admin: 06/13/17 06:37 Dose: 1 amp Alprazolam (Xanax -) 0.25 mg PO DAILY [facility] Last Admin: 06/13/17 09:45 Dose: 0.25 mg Aspirin (Asa -) 81 mg PO DAILY [facility] Last Admin: 06/13/17 09:45 Dose: 81 mg Atorvastatin Calcium (Lipitor -) 10 mg PO HS [facility] Last Admin: 06/12/17 22:23 Dose: 10 mg Azithromycin (Zithromax -) 500 mg PO DAILY [facility] Last Admin: 06/13/17 09:45 Dose: 500 mg Budesonide/Formoterol Fumarate (Symbicort 80/4.5mcg -) 1 puff IH BID [facility] Last Admin: 06/13/17 09:46 Dose: 1 puff Diltiazem HCl (Cardizem Cd -) 240 mg PO DAILY [facility] Last Admin: 06/13/17 09:45 Dose: 240 mg Docusate Sodium (Colace -) 200 mg PO DAILY [facility] Last Admin: 06/13/17 09:45 Dose: 200 mg Donepezil HCl (Aricept -) 10 mg PO DAILY [facility] Last Admin: 06/13/17 09:45 Dose: 10 mg Escitalopram Oxalate (Lexapro -) 10 mg PO DAILY [facility] Last Admin: 06/13/17 09:45 Dose: 10 mg Ferrous Sulfate (Feosol -) 325 mg PO DAILY [facility] Last Admin: 06/13/17 09:45 Dose: 325 mg Gabapentin (Neurontin -) 300 mg PO DAILY [facility] Last Admin: 06/13/17 09:45 Dose: 300 mg Gabapentin (Neurontin -) 600 mg PO HS [facility] Last Admin: 06/12/17 22:25 Dose: 600 mg Loratadine (Claritin -) 10 mg PO DAILY [facility] Last Admin: 06/13/17 09:45 Dose: 10 mg Memantine (Namenda -) 10 mg PO BID [facility] Last Admin: 06/13/17 09:45 Dose: 10 mg Oxybutynin Chloride (Ditropan -) 5 mg PO DAILY [facility] Last Admin: 06/13/17 09:45 Dose: 5 mg Polyethylene Glycol (Miralax (For Daily Use) -) 17 gm PO DAILY [facility] Last Admin: 06/13/17 09:45 Dose: 17 gm Prednisone (Deltasone -) 30 mg PO DAILY [facility] Last Admin: 06/13/17 09:45 Dose: 30 mg Rivaroxaban (Xarelto -) 20 mg PO DAILY [facility] Last Admin: 06/13/17 09:45 Dose: 20 mg Senna/Docusate Sodium (Pericolace -) 2 tablet PO HS [facility] Last Admin: 06/12/17 22:25 Dose: 2 tablet Tiotropium [place] (Spiriva -) 1 puff IH DAILY [facility] Last Admin: 06/13/17 09:46 Dose: 1 puff A/P s/p Fall URI Sepsis resolved Lactic Acidosis resolved HTN Hyperlipidemia COPD Churgg Eugenie Disease h/o DVT Dementia - monitoring off antibiotics - continue chronic prednisone - inhaled bronchodilators - O2 to keep SpO2 >90% - continue anticoagulation - agree with short term rehab due to frequent falls Problem List - Problems (1) Pneumonia Code(s): J18.9 - PNEUMONIA, UNSPECIFIED ORGANISM (2) COPD (chronic obstructive pulmonary disease) Code(s): J44.9 - CHRONIC OBSTRUCTIVE PULMONARY DISEASE, UNSPECIFIED (3) Sepsis Code(s): A41.9 - SEPSIS, UNSPECIFIED ORGANISM (4) Dementia Code(s): F03.90 - UNSPECIFIED DEMENTIA WITHOUT BEHAVIORAL DISTURBANCE Qualifiers: Dementia type: unspecified type Dementia behavioral disturbance: without behavioral disturbance Qualified Code(s): F03.90 - Unspecified dementia without behavioral disturbance (5) Hypercholesteremia Code(s): E78.0 - PURE HYPERCHOLESTEROLEMIA * DO NOT USE * (6) Hypertension Code(s): I10 - ESSENTIAL (PRIMARY) HYPERTENSION (7) Hypothyroid Code(s): E03.9 - HYPOTHYROIDISM, UNSPECIFIED
--- NOTE | 2017-06-13 15:43 | PN ---
Teaching Attending Note Name of Resident: Harini Hernadez ATTENDING PHYSICIAN STATEMENT I saw and evaluated the patient. I reviewed the resident's note and discussed the case with the resident. I agree with the resident's findings and plan as documented. SUBJECTIVE:asymptomatic. denies Cp, SOB, fever, chills, N/V/C/D OBJECTIVE: Last Vital Signs Temp Pulse Resp BP Pulse Ox 98.2 F 86 20 133/64 96 06/13/17 15:21 06/13/17 15:21 06/13/17 15:21 06/13/17 09:00 06/13/17 10:50 General NAD A&O x1 (self only) CV S1 S2 RRR +murmur Lungs CTA B/L no wheezing/rales/rhonchi Extremities no swelling or erythema to LUE. hematoma to L knee. 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 1. Mechanical fall- s/p hematoma to L knee. repeat Head CT negative. re-started asa/xarelto. PT assessment. plan for [facility] placement due to frequent falls 2. Acute COPD exacerbation with possible bronchitis- clinically stable. increased steroid dose to include short taper. saturating well on home O2. azithro day2 out of 3. influenza neg 3. Recent L elbow MRSA abscess s/p I&D. completed abx treatment. 4. L brachial DVT- on xarelto 5. Alzhemers- at baseline. cont 6. Churg Eugenie- on prednisone taper than return to home dose 15mg. on cellcept 7, DVT ppx- Xarelto 8. medically optimized for discharge today. awaiting bed authorization.
[2017-06-13] MEDS: ATORVASTATIN CA 10 MG TABLET (FP) PO SCH (21:09)
[2017-06-13] MEDS: SENNOSIDES/DOCUSATE COMBO (SENNA PLUS) TABLET (UD) PO SCH (21:10)
--- NOTE | 2017-06-14 08:04 | PN ---
Physical Exam: SUBJECTIVE: Patient seen and examined. Doing well. Asymptomatic. Slept well. No trouble breathing OBJECTIVE: Vital Signs Period Temp Pulse Resp BP Sys/Bahena Pulse Ox Last 24 Hr 98.1 F-98.3 F 73-92 18-20 124-145/64-86 95-96 GEN: AAOx1, NAD, no longer coughing, conversational. HEENT: PERRLA, EOMi CV: S1, S2, RRR LUNG: Expiratory wheezes, good air movement ABD: Soft, NT, ND, normoactive BS MSK: No edema, mild hematoma on L kneecap Active Medications Generic Name Dose Route Start Last Admin Trade Name Freq PRN Reason Stop Dose Admin Acetaminophen 650 mg 06/10/17 04:41 06/10/17 21:28 Tylenol - PO 650 mg Q6H PRN Administration FEVER OR PAIN Albuterol Sulfate 1 - 2 puff 06/12/17 10:00 06/13/17 21:14 Ventolin Hfa Inhaler - IH 1 puff QID BEVERLY Administration Albuterol/Ipratropium 1 amp 06/12/17 07:15 06/13/17 22:30 Duoneb - NEB 1 amp Q6H PRN Administration SHORTNESS OF BREATH Alprazolam 0.25 mg 06/10/17 10:00 06/13/17 09:45 Xanax - PO 0.25 mg DAILY BEVERLY Administration Aspirin 81 mg 06/10/17 10:00 06/13/17 09:45 Asa - PO 81 mg DAILY BEVERLY Administration Atorvastatin Calcium 10 mg 06/10/17 22:00 06/13/17 21:09 Lipitor - PO 10 mg HS BEVERLY Administration Azithromycin 500 mg 06/12/17 11:45 06/13/17 09:45 Zithromax - PO 06/14/17 23:59 500 mg DAILY BEVERLY Administration Budesonide/Formoterol Fumarate 1 puff 06/10/17 10:00 06/13/17 21:10 Symbicort 80/4.5mcg - IH 1 puff BID BEVERLY Administration Diltiazem HCl 240 mg 06/10/17 10:00 06/13/17 09:45 Cardizem Cd - PO 240 mg DAILY BEVER[facility] Administration Docusate Sodium 200 mg 06/10/17 10:00 06/13/17 09:45 Colace - PO 200 mg DAILY BEVERLY Administration Donepezil HCl 10 mg 06/10/17 10:00 06/13/17 09:45 Aricept - PO 10 mg DAILY BEVER[facility] Administration Escitalopram Oxalate 10 mg 06/10/17 10:00 06/13/17 09:45 Lexapro - PO 10 mg DAILY BEVER[facility] Administration Ferrous Sulfate 325 mg 06/10/17 10:00 06/13/17 09:45 Feosol - PO 325 mg DAILY BEVERLY Administration Gabapentin 300 mg 06/11/17 10:00 06/13/17 09:45 Neurontin - PO 300 mg DAILY B[facility] Administration Gabapentin 600 mg 06/10/17 22:00 06/13/17 21:09 Neurontin - PO 600 mg HS BEVERLY Administration Loratadine 10 mg 06/11/17 10:00 06/13/17 09:45 Claritin - PO 10 mg DAILY BEVER[facility] Administration Memantine 10 mg 06/10/17 10:00 06/13/17 21:09 Namenda - PO 10 mg BID BEVERLY Administration Oxybutynin Chloride 5 mg 06/10/17 10:00 06/13/17 09:45 Ditropan - PO 5 mg DAILY BEVER[facility] Administration Polyethylene Glycol 17 gm 06/10/17 10:00 06/13/17 09:45 Miralax (For Daily Use) - PO 17 gm DAILY [facility] Administration Prednisone 25 mg 06/14/17 10:00 Deltasone - PO DAILY B[facility] Rivaroxaban 20 mg 06/10/17 10:00 06/13/17 09:45 Xarelto - PO 20 mg DAILY B[facility] Administration Senna/Docusate Sodium 2 tablet 06/10/17 22:00 06/13/17 21:10 Pericolace - PO 2 tablet HS BEVERLY Administration Tiotropium [place] 1 puff 06/10/17 10:00 06/13/17 09:46 Spiriva - IH 1 puff DAILY BEVER[facility] Administration ASSESSMENT/PLAN: Patient is an 87 year old female who was BIBEMS s/p mechanical fall and was found to be septic. Patient admitted for further monitoring and management. # S/p Fall - No fractures, only sustained superficial L knee hematoma. Pt walked only 15 feet with PT. [facility] sent for SNF, awaiting approval # +SIRS - Likely from bronchitis, completed 3 day course of Azithromycin 500mg. Continuing Prednisone taper, currently 25 daily. Tomorrow 25, then 20mg x2, then return to 15mg daily # COPD/Asthma - Continue Albuterol inhalers and nebulizer treatments, Spiriva, Symbicort # Hx of Churgg Eugenie - Pt is on home prednisone, but will start prednisone taper. HOLD Cellcept for now, but can restart upon d/c # Hx of L brachial DVT - Continue Xarelto # Normocytic Anemia - Continue Ferrous Sulfate # Hx of CAD - continue ASA # Alzheimer dementia - continue Donepezil # HTN - continue Cardizem # HLD - continue Lipitor # Hypothyroidism - continue Synthroid # Overactive Bladder - continue Oxybutynin # Neuropathy - Continue Gabapentin # Anxiety/Depression - continue Xanax and Lexapro # GERD - continue Zantac # Constipation - continue Senna, Colace, and Miralax # FEN/PPx - No fluids necessary low sodium diet, On Xarelto # Dispo - Medically optimized for d/c, but patient does not walk well with PT. [facility] sent for [facility]. Has bed, but waiting insurance authorization. Hopeful dc today. d/w Dr Christa Hernadez MD - PGY1 Resident Internal Medicine Visit type - Emergency Visit Emergency Visit: No - New Patient This patient is new to me today: No - Critical Care Critical Care patient: No - Discharge Referral Referred to [facility] No
[2017-06-14 08:11] LABS: MCH 26.1 pg (25.7-33.7); MCHC 31.1 g/dl (32.0-36.0); MEAN CELL VOLUME 83.7 fl (80-96); MEAN PLT VOLUME 8.2 fl (7.5-11.1); PLATELET COUNT 306 K/MM3 (134-434); WHITE BLOOD COUNT 7.9 K/mm3 (4.0-10.0)
[2017-06-14] MEDS ORDERED: PT OWN MED DRAWER 7, Y5N ONE (09:11)
[2017-06-14] MEDS ORDERED: predniSONE 10 MG TABLET (UD) PO SCH (10:00)
[2017-06-14] MEDS ORDERED: predniSONE 20 MG TABLET (UD) PO SCH (10:00)
[2017-06-14] MEDS: MEMANTINE HCL 10 MG TABLET (FP) PO SCH (10:10)
[2017-06-14] MEDS: ESCITALOPRAM OXALATE 10 MG TABLET (FP) PO SCH (10:10)
[2017-06-14] MEDS: ASPIRIN 81 MG CHEWABLE TABLETS PO SCH (10:11)
[2017-06-14] MEDS: AZITHROMYCIN 250 MG TABLET PO SCH (10:11)
[2017-06-14] MEDS: DONEPEZIL HCL 10 MG TABLET (FP) PO SCH (10:11)
[2017-06-14] MEDS: GABAPENTIN 300 MG CAPSULE (FP) PO SCH (10:11)
[2017-06-14] MEDS: FERROUS SO4 325 MG TABLET (FP) PO SCH (10:11)
[2017-06-14] MEDS: OXYBUTYNIN CHLORIDE 5 MG TABLET PO SCH (10:11)
[2017-06-14] MEDS: LORATADINE 10 MG TABLET PO SCH (10:12)
[2017-06-14] MEDS: ALPRAZolam 0.25 MG TABLET PO SCH (10:12)
[2017-06-14] MEDS: RIVAROXABAN 20 MG TABLET PO SCH (10:12)
[2017-06-14] MEDS: DOCUSATE SODIUM 100 MG CAPSULE (FP) PO SCH (10:12)
[2017-06-14] MEDS: TIOTROPIUM BROMIDE 18 MCG/INH (DEVICE W/ 5 CAPSULES) IH SCH (10:13)
[2017-06-14] MEDS: POLYETHYLENE GLYCOL 3350 119 GM BTL PO SCH (10:13)
[2017-06-14] MEDS: BUDESONIDE/FORMETEROL FUMARATE 80/4.5 mcg INHALER IH SCH (10:13)
[2017-06-14] MEDS: ALBUTEROL SO4 18 GM HFA INHALER IH SCH ×2 (10:16→14:47)
[2017-06-14 12:28] VITALS: BP 122/66
--- NOTE | 2017-06-14 13:10 | DS ---
Physical Exam: SUBJECTIVE: Patient seen and examined. Doing well. Asymptomatic. Breathing well. OBJECTIVE: Vital Signs Period Temp Pulse Resp BP Sys/Bahena Pulse Ox Last 24 Hr 98 F-98.3 F 86-96 18-22 122-145/66-86 96 PHYSICAL EXAM GEN: AAOx1, NAD, no longer coughing, conversational. HEENT: PERRLA, EOMi CV: S1, S2, RRR LUNG: Expiratory wheezes, good air movement ABD: Soft, NT, ND, normoactive BS MSK: No edema, mild hematoma on L kneecap LABS Laboratory Last Values WBC 7.9 K/mm3 (4.0-10.0) 06/14/17 06:30 RBC 3.58 M/mm3 (3.60-5.2) L 06/14/17 06:30 Hgb 9.3 GM/dL (10.7-15.3) L 06/14/17 06:30 Hct 30.0 % (32.4-45.2) L 06/14/17 06:30 MCV 83.7 fl (80-96) 06/14/17 06:30 MCH 26.1 pg (25.7-33.7) 06/14/17 06:30 MCHC 31.1 g/dl (32.0-36.0) L 06/14/17 06:30 RDW 18.0 % (11.6-15.6) H 06/14/17 06:30 Plt Count 306 K/MM3 (134-434) 06/14/17 06:30 MPV 8.2 fl (7.5-11.1) 06/14/17 06:30 Neutrophils % 71.1 % (42.8-82.8) 06/13/17 07:45 Lymphocytes % 10.5 % (8-40) 06/13/17 07:45 Monocytes % 18.1 % (3.8-10.2) H 06/13/17 07:45 Eosinophils % 0.1 % (0-4.5) D 06/13/17 07:45 Basophils % 0.2 % (0-2.0) 06/13/17 07:45 PT with INR 12.20 SEC (9.98-11.88) H 06/10/17 10:20 INR 1.08 (0.82-1.09) D 06/10/17 10:20 PTT (Actin FS) 26.2 SECONDS (26.9-34.4) L 06/10/17 10:20 VBG pH 7.42 (7.32-7.42) 06/09/17 21:30 POC VBG pCO2 53.9 mmHg (38-52) H 06/09/17 21:30 POC VBG pO2 34.2 mmHg (28-48) D 06/09/17 21:30 Mixed VBG HCO3 34.6 meq/L (19-25) H 06/09/17 21:30 Sodium 143 mmol/L (136-145) 06/11/17 06:20 Potassium 4.1 mmol/L (3.5-5.1) D 06/11/17 06:20 Chloride 106 mmol/L (98-107) 06/11/17 06:20 Carbon Dioxide 27 mmol/L (21-32) D 06/11/17 06:20 Anion Gap 10 (8-16) 06/11/17 06:20 BUN 13 mg/dL (7-18) 06/11/17 06:20 Creatinine 0.7 mg/dL (0.55-1.02) 06/11/17 06:20 Creat Clearance w eGFR > 60 (>60) 06/11/17 06:20 Random Glucose 82 mg/dL (74-106) 06/11/17 06:20 Lactic Acid 0.6 mmol/L (0.4-2.0) 06/10/17 04:15 Calcium 8.2 mg/dL (8.5-10.1) L 06/11/17 06:20 Phosphorus 2.7 mg/dL (2.5-4.9) D 06/10/17 10:20 Magnesium 2.2 mg/dL (1.8-2.4) 06/10/17 10:20 Total Bilirubin 0.5 mg/dL (0.2-1.0) D 06/11/17 06:20 AST 30 U/L (15-37) D 06/11/17 06:20 ALT 20 U/L (12-78) 06/11/17 06:20 Alkaline Phosphatase 59 U/L (45-117) 06/11/17 06:20 Creatine Kinase 30 IU/L (26-192) 06/09/17 20:52 Troponin I < 0.02 ng/ml (0.00-0.05) 06/09/17 20:52 Total Protein 6.0 g/dl (6.4-8.2) L 06/11/17 06:20 Albumin 2.7 g/dl (3.4-5.0) L 06/11/17 06:20 Urine Color Yellow 06/10/17 04:10 Urine Appearance Slcloudy 06/10/17 04:10 Urine pH 6.0 (5.0-8.0) 06/10/17 04:10 Ur Specific [place] 1.017 (1.001-1.035) 06/10/17 04:10 Urine Protein Negative (NEGATIVE) 06/10/17 04:10 Urine Glucose (UA) 1+ (NEGATIVE) H 06/10/17 04:10 Urine Ketones Negative (NEGATIVE) 06/10/17 04:10 Urine Blood Negative (NEGATIVE) 06/10/17 04:10 Urine Nitrite Negative (NEGATIVE) 06/10/17 04:10 Urine Bilirubin Negative (NEGATIVE) 06/10/17 04:10 Urine Urobilinogen Negative mg/dL (0.2-1.0) 06/10/17 04:10 Ur Leukocyte Esterase Negative (NEGATIVE) 06/10/17 04:10 Blood Type A NEGATIVE 06/09/17 20:52 Antibody Screen Negative 06/09/17 20:52 HOSPITAL COURSE: Date of Admission:06/10/17 Date of Discharge: 06/14/17 Briefly, Ms Carter is an 87yo F, well known to the hospital, with a PMHx of Alzheimer's dementia (baseline conversational and AAOx1), HTN, HLD, GERD, hypothyroidism, NHL, COPD on home oxygen 2L, Churgg Eugenie disease on chronic Prednisone 15mg daily, DVT on xarelto who was brought by EMS from her Assisted Living after a mechanical fall. She stated that her "legs gave out" and denied any symptoms prior to the fall like aura, palpitations, etc. From the fall, multiple imaging was done, and she only sustained a superficial L knee hematoma without fracture. In the ER, she was found to have a low grade fever 100.8, with a WBC count of 11.3 (although the patient is on chronic prednisone, and at baseline has a white count in the 10s). A chest XR revealed possible R sided consolidation, although the patient's cough is chronic. She was admitted for sepsis secondary to possible pneumonia, and was started on empiric antibiotics. A further look at her CXR revealed no new changes from her previous films. The patient defervesced, and her WBC quickly normalized. She was relatively asymptomatic, and the likelihood of pneumonia was low, and thus antibiotics were discontinued. During her course, she did have a bout of cough with expiratory wheezes, and it was thought the patient had bronchitis which caused her initial SIRS picture. She was treated with a 3 day course of Azithromycin 500 daily. She was also started on a short Prednisone taper starting at 30mg, which finishes at the end of the week, after which she can restart her home Prednisone 15mg. Since the patient has had numerous falls recently, and walked only 15 feet with Physical Therapy, the patient will be sent to a subacute rehabilitation facility for rehab. When she improves she can return to her Assisted Living. The patient and daughter are aware of the hospital course and agree with the plan to be discharged to a SNF. Minutes to complete discharge: 45 Discharge Summary Reason For Visit: PNEUMONIA Current Active Problems Fever (Acute) Pneumonia (Acute) Status post fall (Acute) Condition: Improved - Instructions Diet, Activity, Other Instructions: MEDICAL RECOMMENDATIONS: - You were admitted because you fell and had a fever and overall systemic inflammatory response - You likely had a viral bronchitis, which affected your breathing. - Please follow the Prednisone taper as directed below. - You have a small hematoma on your left knee, to improve that we recommend ice packs to the area, to reduce its size - Because you are falling more frequently recently, you will be going to a subacute rehabilitation facility for physical therapy. - You need to take fall precautions, and use assisted devices when ambulating MEDICATION CHANGES: - START Protonix 40mg tablets daily, because you are on chronic steroids, you need this to prevent a gastric ulcer - START Prednisone Taper 25mg tablets for 1 day 20mg tablets for 2 days - AFTERWARDS, resume your 15mg Prednisone daily dosing - Continue all of your other home medications FOLLOWUPS: - Dr. Mehta (Primary Care Physician) - followup in 2 weeks If you experience any serious symptoms like severe chest pain, shortness of breath, or another fall, please return to the ER. Referrals: Kurt Mehta MD [Staff Physician] - 2 Weeks Disposition: HALF-WAY FACILITY - Home Medications Comprehensive Discharge Medication List: Ambulatory Orders Aa/Hydrolyzed Collagen, Whey [Lps Neutral Flavor Liquid] 960 ml PO DAILY Acetaminophen [Mapap] 650 mg PO QID PRN 06/09/17 Albuterol Sulfate [Proventil HFA Inhaler -] 1 - 2 inh PO QID 06/09/17 Alprazolam [Xanax] 0.25 mg PO DAILY 06/09/17 Aspirin [ASA -] 81 mg PO DAILY 06/09/17 Atorvastatin Ca [Lipitor] 10 mg PO HS 06/09/17 Bacitracin - [Bacitracin Topical Ointment -] 1 applic TP DAILY 06/09/17 Budesonide/Formeterol Fumarate [SYMBICORT 80/4.5mcg -] 1 inh PO BID 06/09/17 Calcium Carbonate/Vitamin D3 [Oyster Shell 500-Vit D3 200 Tb] 1 each PO BID 02/16 Diltiazem Cd [Cardizem Cd -] 240 mg PO DAILY 06/09/17 Docusate Sodium [Colace -] 200 mg PO DAILY 06/09/17 Donepezil HCl [Aricept] 10 mg PO DAILY 06/09/17 Escitalopram Oxalate [Lexapro -] 10 mg PO DAILY 06/09/17 Ferrous Sulfate 325 mg PO DAILY 06/09/17 Gabapentin 300 mg PO DAILY 06/09/17 Gabapentin 600 mg PO HS 06/09/17 Loratadine 10 mg PO DAILY 06/09/17 Memantine HCl [Namenda -] 10 mg PO BID 06/09/17 Mycophenolate Mofetil [Cellcept] 500 mg PO DAILY 06/09/17 Olopatadine HCl [[place]] 2.5 ml OP DAILY 06/09/17 Oxybutynin Chloride 5 mg PO DAILY 06/09/17 Polyethylene Glycol 3350 [Miralax 119 gm Btl -] 17 gm PO DAILY 06/09/17 Rivaroxaban [Xarelto -] 20 mg PO DAILY 06/09/17 Sennosides/Docusate Sodium [Senna Laxative Tablet] 2 each PO HS 06/09/17 Tiotropium [place] [Spiriva] 1 inh PO DAILY 06/09/17 Pantoprazole Sodium [Protonix] 40 mg PO DAILY #30 tablet. 06/14/17 Prednisone See Taper PO DAILY #13 tablet 06/14/17 This patient is new to me today: No Emergency Visit: No Critical Care patient: No - Discharge Referral Referred to [facility] No
--- NOTE | 2017-06-14 13:55 | PN ---
Teaching Attending Note Name of Resident: Harini Hernadez ATTENDING PHYSICIAN STATEMENT I saw and evaluated the patient. I reviewed the resident's note and discussed the case with the resident. I agree with the resident's findings and plan as documented. SUBJECTIVE:asymptomatic. denies Cp, SOB, fever, chilsl, N/V/C/D OBJECTIVE: Last Vital Signs Temp Pulse Resp BP Pulse Ox 98 F 96 H 22 122/66 96 06/14/17 10:00 06/14/17 10:00 06/14/17 10:00 06/14/17 10:00 06/14/17 09:00 General NAD A&O x1 (self only) CV S1 S2 RRR +murmur Lungs CTA B/L no wheezing/rales/rhonchi Extremities no swelling or erythema to LUE. hematoma to L knee. 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 1. Mechanical fall- s/p hematoma to L knee. repeat Head CT negative. re-started asa/xarelto. PT assessment. plan for [facility] placement due to frequent falls 2. Acute COPD exacerbation with possible bronchitis- clinically stable. increased steroid dose to include short taper. saturating well on home O2. azithro day 3. will complete abx treatment today. influenza neg 3. Recent L elbow MRSA abscess s/p I&D. completed abx treatment. 4. L brachial DVT- on xarelto 5. Alzhemers- at baseline. cont 6. Churg Eugenie- on prednisone taper than return to home dose 15mg. on cellcept 7, DVT ppx- Xarelto 8. medically optimized for discharge today. awaiting bed authorization.
[2017-06-14 15:34] VITALS: PULSE 94; TEMP 98.2
== END 2017-06-14 16:54 | DRG 872 ==
LOC: JER 15:40 → JERBED 06-10 04:37 → UNDOADMIN 06-10 05:46 → J8W 06-10 08:16
PROVIDERS: ADMIT Internal Medicine; ATTEND Internal Medicine
DX: A41.9 Sepsis, unspecified organism (principal); E87.2 Acidosis; M30.1 Polyarteritis with lung involvement [Churg-Strauss]; J96.11 Chronic respiratory failure with hypoxia; J44.1 Chronic obstructive pulmonary disease with (acute) exacerbation; J06.9 Acute upper respiratory infection, unspecified; G30.9 Alzheimer's disease, unspecified; F02.80 Dementia in other diseases classified elsewhere, unspecified severity, without behavioral disturbance, psychotic disturbance, mood disturbance, and anxiety; E78.00 Pure hypercholesterolemia, unspecified; E03.9 Hypothyroidism, unspecified; I10 Essential (primary) hypertension; R29.6 Repeated falls; J20.9 Acute bronchitis, unspecified; D64.9 Anemia, unspecified; G62.9 Polyneuropathy, unspecified; N32.81 Overactive bladder; I25.10 Atherosclerotic heart disease of native coronary artery without angina pectoris; K59.09 Other constipation; I27.20 Pulmonary hypertension, unspecified; F41.8 Other specified anxiety disorders; M21.379 Foot drop, unspecified foot; I77.6 Arteritis, unspecified; S80.02XA Contusion of left knee, initial encounter; K21.9 Gastro-esophageal reflux disease without esophagitis; Z85.72 Personal history of non-Hodgkin lymphomas; Z86.718 Personal history of other venous thrombosis and embolism; Z99.81 Dependence on supplemental oxygen; Z87.891 Personal history of nicotine dependence; W18.39XA Other fall on same level, initial encounter; Y93.89 Activity, other specified; Y92.098 Other place in other non-institutional residence as the place of occurrence of the external cause; J40 Bronchitis, not specified as acute or chronic
CPT/HCPCS: 36415; 70450-TC; 71010-TC; 71020-TC; 72170-TC; 73562-TC-LT; 80048; 80053; 81003; 82550; 82803; 83605; 83735; 84100; 84484; 85025; 85027; 85610; 85730; 86738; 86850; 86900; 86901; 87040; 87086; 87633; 87804; 93005; 93010; 94640; 97116-GP; 99285-25; J1644

== ENCOUNTER 2017-07-15 23:43 | Inpatient (IN) | payer OTHER ==
[2017-07-16 00:34] VITALS: BMI 23.3
[2017-07-16] MEDS ORDERED: SODIUM CHLORIDE 0.9% 1000 ML INFUS.BAG IV ONE ×2 (00:35→02:29)
--- NOTE | 2017-07-16 00:35 | PDOC ---
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 The patient states that she felt short of breath since this morning. [facility] documents indicate that the patient was satting in the high 80's on RA. She is normally on 2 L O2 at home but desaturated with 2 L on. She is only complaining of difficulty breathing, but no CP, fever, chills, nausea, vomiting, numbness, tingling, or weakness. Past History - Past Medical History Allergies/Adverse Reactions: Allergies Allergy/AdvReac Type Severity Reaction Status Date / Time levofloxacin [From Levaquin] AdvReac Unknown Itching Verified 07/16/17 00:27 Home Medications: Ambulatory Orders Aa/Hydrolyzed Collagen, Whey [Lps Neutral Flavor Liquid] 960 ml PO DAILY Acetaminophen [Mapap] 650 mg PO QID PRN 06/09/17 Albuterol Sulfate [Proventil HFA Inhaler -] 1 - 2 inh PO QID 06/09/17 Alprazolam [Xanax] 0.25 mg PO DAILY 06/09/17 Aspirin [ASA -] 81 mg PO DAILY 06/09/17 Atorvastatin Ca [Lipitor] 10 mg PO HS 06/09/17 Bacitracin - [Bacitracin Topical Ointment -] 1 applic TP DAILY 06/09/17 Budesonide/Formeterol Fumarate [SYMBICORT 80/4.5mcg -] 1 inh PO BID 06/09/17 Calcium Carbonate/Vitamin D3 [Oyster Shell 500-Vit D3 200 Tb] 1 each PO BID 02/16 Diltiazem Cd [Cardizem Cd -] 240 mg PO DAILY 06/09/17 Docusate Sodium [Colace -] 200 mg PO DAILY 06/09/17 Donepezil HCl [Aricept] 10 mg PO DAILY 06/09/17 Escitalopram Oxalate [Lexapro -] 10 mg PO DAILY 06/09/17 Ferrous Sulfate 325 mg PO DAILY 06/09/17 Gabapentin 300 mg PO DAILY 06/09/17 Gabapentin 600 mg PO HS 06/09/17 Loratadine 10 mg PO DAILY 06/09/17 Memantine HCl [Namenda -] 10 mg PO BID 06/09/17 Mycophenolate Mofetil [Cellcept] 500 mg PO DAILY 06/09/17 Olopatadine HCl [Pataday] 2.5 ml OP DAILY 06/09/17 Oxybutynin Chloride 5 mg PO DAILY 06/09/17 Polyethylene Glycol 3350 [Miralax 119 gm Btl -] 17 gm PO DAILY 06/09/17 Rivaroxaban [Xarelto -] 20 mg PO DAILY 06/09/17 Sennosides/Docusate Sodium [Senna Laxative Tablet] 2 each PO HS 06/09/17 Tiotropium [place] [Spiriva] 1 inh PO DAILY 06/09/17 Pantoprazole Sodium [Protonix] 40 mg PO DAILY #30 tablet. 06/14/17 Prednisone See Taper PO DAILY #13 tablet 06/14/17 Anemia: No Asthma: Yes Cancer: Yes (NON HODGKINS LYMPHOMA,) Cardiac Disorders: (AFIB) CVA: No COPD: Yes CHF: No Dementia: Yes GI Disorders: Yes (GERD) Disorders: Yes (BLADDER DROP) HTN: Yes Hypercholesterolemia: Yes 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, anxiety) Thyroid Disease: Yes (hypothyroid) - Surgical History Lung Surgery: Yes - Immunization History Td Vaccination: (unknown) Immunization Up to Date: Yes - Suicide/Smoking/Psychosocial Hx Smoking Status: No Smoking History: Unknown if ever smoked Years of Tobacco Use: 40 Have you smoked in the past 12 months: No Number of Cigarettes Smoked Daily: 0 If you are a former smoker, when did you quit?: 45 years ago Cigars Per Day: 0 Information on smoking cessation initiated: No Hx Alcohol Use: No Drug/Substance Use Hx: No Substance Use Type: None Hx Substance Use Treatment: No Review of Systems - Review of Systems Able to Perform ROS?: Yes Comments:: 07/16/17 02:36 GENERAL/CONSTITUTIONAL: No fever or chills. No weakness. HEAD, EYES, EARS, NOSE AND THROAT: No change in vision. No ear pain or discharge. No sore throat. GASTROINTESTINAL: No nausea, vomiting, diarrhea, constipation, or abdominal pain. GENITOURINARY: No dysuria, frequency, hematuria, or change in urination. CARDIOVASCULAR: No chest pain, palpitations, or lightheadedness. RESPIRATORY: Positive for shortness of breath and difficulty breathing. No cough , wheezing, or hemoptysis. MUSCULOSKELETAL: No joint or muscle swelling or pain. No neck or back pain. SKIN: No rash or lesions. NEUROLOGIC: No headache, numbness, tingling, weakness, loss of consciousness, or change in strength/sensation. ENDOCRINE: No increased thirst. No abnormal weight change. HEMATOLOGIC/LYMPHATIC: No anemia, easy bleeding, or history of blood clots. ALLERGIC/IMMUNOLOGIC: No hives or skin allergy. Is the patient limited Arabic proficient: No *Physical Exam - Vital Signs Last Vital Signs Temp Pulse Resp BP Pulse Ox 98.8 F 116 H 12 129/82 89 L 07/16/17 00:14 07/16/17 00:14 07/16/17 00:14 07/16/17 00:14 07/16/17 00:14 - Physical Exam Comments: 07/16/17 02:37 GENERAL: Well developed, well nourished. Awake and alert. Mild respiratory distress. HEENT: Normocephalic, atraumatic. Hearing grossly normal. Dry mucous membranes. PERRLA, EOMI. No conjunctival pallor. Sclera are non-icteric. NECK: Supple. Full ROM. No JVD. Carotid pulses 2+ and symmetric, without bruits. CARDIOVASCULAR: Regular rate and rhythm. No murmurs, rubs, or gallops. PULMONARY: Diffuse rhonchi in all lung escobar. ABDOMINAL: Soft. Non-tender. Non-distended. No rebound or guarding. GENITOURINARY: No CVA tenderness bilaterally. MUSCULOSKELETAL: Normal range of motion at all joints. No bony deformities or tenderness. EXTREMITIES: No cyanosis. No clubbing. No edema. No calf tenderness. SKIN: Warm and dry. Normal capillary refill. No rashes. No jaundice. NEUROLOGICAL: Alert, awake, appropriate. Cranial nerves 2-12 intact. Normal speech. PSYCHIATRIC: Cooperative. Good eye contact. Appropriate mood and affect. ED Treatment Course - LABORATORY CBC & Chemistry Diagram: 07/16/17 01:35 07/16/17 01:35 - RADIOLOGY Radiology Studies Ordered: Category Date Time Status CHEST X-RAY PORTABLE* [RAD] Stat Radiology 07/16/17 00:19 Ordered Medical Decision Making - Medical Decision Making 07/16/17 02:31 The patient is an 87F with an extensive PMH, recently dx with PNA who presents to the ED with JOSEFA and SOB satting in the high 80's on RA. The patient has continued to require increased O2 and duonebs. Placed on Bipap 12/6 50%. Labs significant for mild leukocytosis at 12 and lactate of 2.8. CXR indicating worsening lung consolidations with L pleural effusion. 07/16/17 04:09 Vanc/zosyn added. Will keep pt hydrated. Dr. Bethea accepts admission for non- cardiac tele bed. Pt tolerating bipap well. *DC/Admit/Observation/Transfer Diagnosis at time of Disposition: Pneumonia, Pleural effusion, Shortness of breath - Discharge Dispostion Condition at time of disposition: Guarded Admit: Yes - Referrals Referrals: Martín Mccoy MD [Primary Care Provider] - - Patient Instructions - Post Discharge Activity
[2017-07-16] MEDS ORDERED: ALBUTEROL SO4 2.5/IPRATROPIUM 0.5 INH SOL 3 ML VIAL.NEB. NEB ONE (00:37)
--- NOTE | 2017-07-16 01:19 | PDOC ---
Attending Attestation - Resident Resident Name: Martín Orourke - ED Attending Attestation I have performed the following: I have examined & evaluated the patient, The case was reviewed & discussed with the resident, I agree w/resident's findings & plan, Exceptions are as noted - HPI HPI: 87 yo F history COPD, AD, NHL, Churg Eugenie, DVT presented with low O2Sat. She was recently diagnosed with pna at her [facility] and has been taking zosyn. Sent to the ED for further evaluation based on the low pulse oximetry. Patient denies any complaints at present. - Physicial Exam PE: GENERAL: Awake, alert, in no acute distress HEAD: No signs of trauma EYES: PERRLA, EOMI, sclera anicteric, conjunctiva clear ENT: Auricles normal inspection, hearing grossly normal, nares patent, oropharynx clear without exudates. Moist mucosa NECK: Normal ROM, supple, no lymphadenopathy, JVD, or masses LUNGS: +Diffuse rhonchi with mild abdominal retractions. HEART: Regular rate and rhythm, normal S1 and S2, no murmurs, rubs or gallops ABDOMEN: Soft, nontender, normoactive bowel sounds. No guarding, no rebound. No masses EXTREMITIES: Normal range of motion, no edema. No clubbing or cyanosis. No cords, erythema, or tenderness NEUROLOGICAL: Cranial nerves II through XII grossly intact. Normal speech. Moving all extremities. SKIN: Warm, Dry, normal turgor, no rashes or lesions noted. - Medical Decision Making Pt on outpatient zosyn but not improving. Will admit for further management of the pna.
[2017-07-16 01:45] LABS: BASO % 0.3 % (0-2.0); EOS % 0.4 % (0-4.5); HEMATOCRIT 33.3 % (32.4-45.2); HEMOGLOBIN 10.2 GM/dL (10.7-15.3); LYMPH % 7.7 % (8-40); MCH 26.3 pg (25.7-33.7); MCHC 30.7 g/dl (32.0-36.0); MEAN CELL VOLUME 85.7 fl (80-96); MEAN PLT VOLUME 8.3 fl (7.5-11.1); NEUT % 84.6 % (42.8-82.8); PLATELET COUNT 288 K/MM3 (134-434); RBC 3.88 M/mm3 (3.60-5.2); RDW 18.9 % (11.6-15.6)
[2017-07-16 01:59] LABS: INR 1.04 (0.82-1.09); PROTHROMBIN TIME (PATIENT) 11.8 SEC (9.98-11.88)
[2017-07-16 02:01] LABS: ACTIVATED PTT 27.6 SECONDS (26.9-34.4)
[2017-07-16 02:11] LABS: ALBUMIN 3.3 g/dl (3.4-5.0); ANION GAP 10 (8-16); BILIRUBIN,TOTAL 0.2 mg/dL (0.2-1.0); BLOOD UREA NITROGEN 37 mg/dL (7-18); CALCIUM 9.5 mg/dL (8.5-10.1); CHLORIDE 100 mmol/L (98-107); CO2 32 mmol/L (21-32); CREATININE 1.5 mg/dL (0.55-1.02); GLUCOSE,RANDOM 101 mg/dL (74-106); POTASSIUM 3.6 mmol/L (3.5-5.1); SGOT/AST 21 U/L (15-37); SGPT/ALT 19 U/L (12-78); SODIUM 142 mmol/L (136-145)
[2017-07-16 02:13] LABS: ALK PHOS 71 U/L (45-117)
[2017-07-16] MEDS ORDERED: PIPERACILLIN/TAZOB 4.5 GM/100 ML PRE-DOCKED IVPB ONE (02:30)
[2017-07-16] MEDS ORDERED: VANCOMYCIN 1,000 MG in DEXTROSE 5%-WATER - 250 ML IVPB ONE (02:30)
[2017-07-16] MEDS ORDERED: PIPERACILLIN/TAZOB 4.5 GM 4.5 GM/100 ML BAG IVPB ONE (03:03)
[2017-07-16] MEDS ORDERED: VANCOMYCIN 1 GRAM (PRE-DOCKED) 1,000 MG/250 ML BAG IVPB ONE (03:40)
--- NOTE | 2017-07-16 04:46 | PN ---
Teaching Attending Note Name of Resident: Stephani Wray ATTENDING PHYSICIAN STATEMENT I saw and evaluated the patient. Chart, data, imaging reviewed. I reviewed the resident's note and discussed the case with the resident. I agree with the resident's findings and plan as documented. 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 Pt started on Tx for pneumonia in her halfway 2 days ago with pip/tazo. In ER, she was placed on NIMV and respiratory status improved. Given vancomycin, zosyn in ER. She is DNR/DNI. OBJECTIVE: Last Vital Signs Temp Pulse Resp BP Pulse Ox 98.8 F 116 H 12 129/82 95 07/16/17 00:14 07/16/17 00:14 07/16/17 00:14 07/16/17 00:14 07/16/17 02:20 General- frail, elderly woman HEENT- at, nc, no sinus tenderness neck -no jvd, no neck masses cv- s1+s2+ tachycardia chest- b/l rales, crackles appreciated abdomen- soft, nt, bs + ext- no edema noted skin- no rashes appreciated Abnormal Lab Results 07/16/17 07/16/17 07/16/17 01:35 01:35 01:42 WBC 12.0 H D Hgb 10.2 L MCHC 30.7 L RDW 18.9 H Neutrophils % 84.6 H Lymphocytes % 7.7 L D BUN 37 H Creatinine 1.5 H Lactic Acid 2.3 H* Albumin 3.3 L ekg- sinus tachycardia CXR- worsening b/l airspace disease ASSESSMENT AND PLAN: #87yo woman with severe sepsis 2/2 HCAP and hypoxic respiratory failure. Lactic acidosis+, JASON, tachycardia. Improved oxygen saturation on Bipap. -admit to noncardiac telemetry for continous pulse oximetry -cefepime 2g IV q12hrs -vancomycin 1g - redose if random daily level <15 -azithormycin 500mg IV daily -sputum cx -blood cx x2 -UA -urine culture -urine legionella ag -nasalpharyngeal flu swab -ID consult for antibiotic approval -transthoracic echo -Xarelto for DVT ppx -code status DNR/DNI -continue home medications for chronic medical conditions
--- NOTE | 2017-07-16 04:48 | HP ---
CHIEF COMPLAINT: " Was sent from [facility] due to worsening pneumonia" PCP: Dr. Mehta HISTORY OF PRESENT ILLNESS: Poor historian. Information obtained from ED staff and medical records. Patient is an 87 year old female was sent form [facility] due to worsening Pneumonia. As per the ED physician, patient was diagnosed with PNA two days ago and was being treated with Zosyn, which has worsened. Patient is currently in Bipap in the ED and unable to give detailed history. She however does speak few words. Denies any nausea, vomiting, abdominal pain, chest pain, shortness of breath, fevers, chills, dysuria, hematuria. Patient was recently admitted @ [facility] on 06/10/17- 06/14/17 due to mechanical fall was sent to [facility] for a short term rehab as she could hardly walk 15 ft with PT. ER course was notable for: (1) Afebrile, Saturation 88 % in RA, Leukocytosis of 12, creatinine 1.5 (2) EKG: Sinus tachycardia (3) IV Vanc, zosyn, Nacl, Duoneb. Recent Travel: None PAST MEDICAL HISTORY: CAD, COPD/asthma on home O2 and prednisone, Alzheimer's dementia, HTN, HLD, GERD, hypothyroidism, Churgg Eugenie on mycophenalate, Anxiety, depression, and overactive bladder, DVT on xarelto PAST SURGICAL HISTORY: L lung lobectomy Social History: Lives in an assisted living. Currently at [facility] for a short term rehab. Smoking: former smoker, smoked for 40 years years Alcohol: none Drugs: none Family History: Non contributory Allergies levofloxacin [From Levaquin] Adverse Reaction (Unknown, Verified 07/16/17 00:27) Itching HOME MEDICATIONS: Home Medications Medication Instructions Recorded Aa/Hydrolyzed Collagen, Whey [Lps 960 ml PO DAILY 06/09/17 Neutral Flavor Liquid] Acetaminophen [Mapap] 650 mg PO QID PRN 06/09/17 Albuterol Sulfate [Proventil HFA 1 - 2 inh PO QID 06/09/17 Inhaler -] Alprazolam [Xanax] 0.25 mg PO DAILY 06/09/17 Aspirin [ASA -] 81 mg PO DAILY 06/09/17 Atorvastatin Ca [Lipitor] 10 mg PO HS 06/09/17 Bacitracin - [Bacitracin Topical 1 applic TP DAILY 06/09/17 Ointment -] Budesonide/Formeterol Fumarate 1 inh PO BID 06/09/17 [SYMBICORT 80/4.5mcg -] Calcium Carbonate/Vitamin D3 1 each PO BID 06/09/17 [Oyster Shell 500-Vit D3 200 Tb] Diltiazem Cd [Cardizem Cd -] 240 mg PO DAILY 06/09/17 Docusate Sodium [Colace -] 200 mg PO DAILY 06/09/17 Donepezil HCl [Aricept] 10 mg PO DAILY 06/09/17 Escitalopram Oxalate [Lexapro -] 10 mg PO DAILY 06/09/17 Ferrous Sulfate 325 mg PO DAILY 06/09/17 Gabapentin 300 mg PO DAILY 06/09/17 Gabapentin 600 mg PO HS 06/09/17 Loratadine 10 mg PO DAILY 06/09/17 Memantine HCl [Namenda -] 10 mg PO BID 06/09/17 Mycophenolate Mofetil [Cellcept] 500 mg PO DAILY 06/09/17 Olopatadine HCl [Pataday] 2.5 ml OP DAILY 06/09/17 Oxybutynin Chloride 5 mg PO DAILY 06/09/17 Polyethylene Glycol 3350 [Miralax 17 gm PO DAILY 06/09/17 119 gm Btl -] Rivaroxaban [Xarelto -] 20 mg PO DAILY 06/09/17 Sennosides/Docusate Sodium [Senna 2 each PO HS 06/09/17 Laxative Tablet] Tiotropium [place] [Spiriva] 1 inh PO DAILY 06/09/17 Pantoprazole Sodium [Protonix] 40 mg PO DAILY #30 tablet. 06/14/17 Prednisone See Taper PO DAILY #13 tablet 06/14/17 REVIEW OF SYSTEMS CONSTITUTIONAL: Absent: fever, chills, diaphoresis, generalized weakness, malaise, loss of appetite, weight change HEENT: Absent: rhinorrhea, nasal congestion, throat pain, throat swelling, difficulty swallowing, mouth swelling, ear pain, eye pain, visual changes CARDIOVASCULAR: Absent: chest pain, syncope, palpitations, irregular heart rate, lightheadedness , peripheral edema RESPIRATORY: cough Absent: shortness of breath, dyspnea with exertion, orthopnea, wheezing, stridor , hemoptysis GASTROINTESTINAL: Absent: abdominal pain, abdominal distension, nausea, vomiting, diarrhea, constipation, melena, hematochezia GENITOURINARY: Absent: dysuria, frequency, urgency, hesitancy, hematuria, flank pain, genital pain MUSCULOSKELETAL: Absent: myalgia, arthralgia, joint swelling, back pain, neck pain SKIN: Absent: rash, itching, pallor HEMATOLOGIC/IMMUNOLOGIC: Absent: easy bleeding, easy bruising, lymphadenopathy, frequent infections ENDOCRINE: Absent: unexplained weight gain, unexplained weight loss, heat intolerance, cold intolerance NEUROLOGIC: Severe Dementia, Unsteady Gait Absent: headache, focal weakness or paresthesias, dizziness, unsteady gait, seizure, mental status changes, bladder or bowel incontinence PSYCHIATRIC: Absent: anxiety, depression, suicidal or homicidal ideation, hallucinations. PHYSICAL EXAMINATION Vital Signs - 24 hr 07/16/17 07/16/17 07/16/17 00:14 01:45 02:20 Temperature 98.8 F Pulse Rate 116 H Respiratory 12 Rate Blood Pressure 129/82 O2 Sat by Pulse 89 L 88 L 95 Oximetry (%) GENERAL: Elderly patient, currently in Bipap saturating 100 % in RA, Awake, alert, and oriented to place, in moderate respiratory distress. HEAD: Normal with no signs of trauma. EYES: EOM intact, no pallor or icterus. EARS, NOSE, THROAT: Ears normal. Dry mucous membranes. NECK: Normal range of motion, supple without lymphadenopathy, JVD, or masses. LUNGS: B/L coarse breath sounds bilaterally. No wheezes. No accessory muscle use. HEART: Regular rate and rhythm, normal S1 and S2 with soft murmur. ABDOMEN: Soft, nontender, not distended, normoactive bowel sounds, no guarding, no rebound, no masses. No hepatomegaly or splenomegaly. MUSCULOSKELETAL: Normal range of motion at all joints. No bony deformities or tenderness. No CVA tenderness. UPPER EXTREMITIES: 2+ pulses, warm, well-perfused. No cyanosis. No clubbing. No peripheral edema. LOWER EXTREMITIES: 2+ pulses, warm, well-perfused. No calf tenderness. No peripheral edema. NEUROLOGICAL: No facial droop, unable to assess. Gait not observed. PSYCHIATRIC: Uncooperative due to sob and on bipap. Good eye contact. Appropriate mood and affect. SKIN: Warm, dry, normal turgor, no rashes or lesions noted, normal capillary refill. Laboratory Results - last 24 hr 07/16/17 07/16/17 07/16/17 01:35 01:35 01:35 WBC 12.0 H D RBC 3.88 Hgb 10.2 L Hct 33.3 MCV 85.7 MCH 26.3 MCHC 30.7 L RDW 18.9 H Plt Count 288 MPV 8.3 Neutrophils % 84.6 H Lymphocytes % 7.7 L D Monocytes % 7.0 Eosinophils % 0.4 D Basophils % 0.3 PT with INR 11.80 INR 1.04 PTT (Actin FS) 27.6 Sodium 142 Potassium 3.6 Chloride 100 Carbon Dioxide 32 Anion Gap 10 BUN 37 H Creatinine 1.5 H Creat Clearance w eGFR 32.70 Random Glucose 101 Lactic Acid Calcium 9.5 Total Bilirubin 0.2 D AST 21 D ALT 19 Alkaline Phosphatase 71 Creatine Kinase 77 Troponin I < 0.02 Total Protein 7.0 Albumin 3.3 L Blood Type Antibody Screen 07/16/17 07/16/17 01:35 01:42 WBC RBC Hgb Hct MCV MCH MCHC RDW Plt Count MPV Neutrophils % Lymphocytes % Monocytes % Eosinophils % Basophils % PT with INR INR PTT (Actin FS) Sodium Potassium Chloride Carbon Dioxide Anion Gap BUN Creatinine Creat Clearance w eGFR Random Glucose Lactic Acid 2.3 H* Calcium Total Bilirubin AST ALT Alkaline Phosphatase Creatine Kinase Troponin I Total Protein Albumin Blood Type A NEGATIVE Antibody Screen Negative ASSESSMENT/PLAN: Patient is an 87 year old female with significant past medical history of CAD, COPD/asthma on home O2 and prednisone, Alzheimer's dementia, HTN, HLD, GERD, hypothyroidism, Churgg Eugenie on mycophenalate, Anxiety, depression, and overactive bladder, DVT on xarelto was sent form [facility] due to worsening Pneumonia. # Severe sepsis secondary to Health care associated pneumonia was being treated with Zosyn at [facility], came with worsening symptoms, now in Bipap Leukocytosis of 12, CXR official read pending Lactic acid 2.3 , was given IV fluids in the ED---repeat Lactic acid pending Admit in Tele/Inpatient IV Cefepime one dose IV Vancomycin one dose IV Azithromycin 500mg Daily ID consult requested Sputum culture pending Flu swab ordered Urine for legionella Blood culture, urine culture IV Hydration Continue Bipap as needed # COPD/Asthma on home oxygen and prednisone Continue Bipap as needed Continue Symbicort, albuterol nebs, Duoneb Prednisone 5mg PO daily continued (home dose) # 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 Continue Xarelto 20mg daily # Churgg Eugenie controlled with Prednisone Hold Mycophenolate due to acute infection # Normocytic Anemia Baseline hgb around 8.0 Continue ferrous sulfate # History of CAD Continue ASA 81mg daily # Alzheimer's Dementia Continue Donepezil 10mg daily and Namenda 10mg daily # HTN-controlled Continue Cardizem 240 daily # HLD Continue Lipitor 10mg daily # Hypothyroidism Continue Synthroid 75mcg # Overactive Bladder Continue Oxybutynin 5mg daily # Non-Hodgkins Lymphoma On mycophenolate but will hold due to acute infection # Anxiety/Depression Continue Xanax 0.25mg TID and Lexapro 10mg daily # Constipation Continue senna, colace, and miralax # FEN IV NS @ 75mls/hr (ordered an ECHO to know EF) Electrolytes wnl NPO except PO meds, currently in Bipap, can resume diet once off Bipap. # Prophylaxis For DVT: Already on Xarelto For GI: Not indicated # Code Status: DNR/DNI-confirmed from [place] papers # Disposition: Duration of stay unknown. Illness, Investigation and Plan of care explained to the patient. She verbalized understanding. Case seen and discussed with Dr. Bethea. Visit type - Emergency Visit Emergency Visit: Yes ED Registration Date: 07/16/17 Care time: The patient presented to the Emergency Department on the above date and was hospitalized for further evaluation of their emergent condition. - New Patient This patient is new to me today: Yes Date on this admission: 07/16/17 - Critical Care Critical Care patient: No
[2017-07-16] MEDS ORDERED: ACETAMINOPHEN 500 MG TABLET (FP) PO PRN (05:30)
[2017-07-16] MEDS ORDERED: ALBUTEROL SO4 2.5/IPRATROPIUM 0.5 INH SOL 3 ML VIAL.NEB. NEB PRN (05:30)
[2017-07-16] MEDS: SODIUM CHLORIDE 1,000 ML IV SCH (05:50)
[2017-07-16] MEDS ORDERED: ACETAMINOPHEN 325 MG TABLET (FP) PO PRN (06:11)
[2017-07-16 06:19] LABS: BASO % 0.5 % (0-2.0); EOS % 0.3 % (0-4.5); HEMATOCRIT 29.2 % (32.4-45.2); HEMOGLOBIN 9.1 GM/dL (10.7-15.3); LYMPH % 3.5 % (8-40); MCH 26.2 pg (25.7-33.7); MEAN CELL VOLUME 84.5 fl (80-96); MEAN PLT VOLUME 8.7 fl (7.5-11.1); MONO % 6.7 % (3.8-10.2); PLATELET COUNT 247 K/MM3 (134-434); RBC 3.45 M/mm3 (3.60-5.2); RDW 18.9 % (11.6-15.6); WHITE BLOOD COUNT 14.6 K/mm3 (4.0-10.0)
[2017-07-16 07:00] LABS: ANION GAP 8 (8-16); BLOOD UREA NITROGEN 34 mg/dL (7-18); CALCIUM 8.1 mg/dL (8.5-10.1); CHLORIDE 102 mmol/L (98-107); CO2 30 mmol/L (21-32); CREATININE 1.2 mg/dL (0.55-1.02); GLUCOSE,RANDOM 108 mg/dL (74-106); MAGNESIUM 1.9 mg/dL (1.8-2.4); POTASSIUM 3.2 mmol/L (3.5-5.1); SODIUM 140 mmol/L (136-145)
[2017-07-16] MEDS ORDERED: CEFEPIME HCL 2 GM VIAL (RESTRICTED TO ID) IVPB ONE (08:00)
[2017-07-16] MEDS ORDERED: CEFEPIME 2 GM in DEXTROSE 5%-WATER - 100 ML IVPB ONE (08:00)
[2017-07-16] MEDS ORDERED: POTASSIUM CHLORIDE ORAL LIQUID 20 MEQ/15 ML PO ONE (08:12)
--- NOTE | 2017-07-16 08:22 | PN ---
Progress Note (short form) - Note Progress Note: Subjective: limited h/o due to dementia . denies any SOB or pain . events noted fro tachycardia in am , to 140s Objective: Vital Signs: Last Vital Signs Temp Pulse Resp BP Pulse Ox 98.6 F 140 H 22 110/69 98 07/16/17 07:57 07/16/17 07:57 07/16/17 07:57 07/16/17 07:57 07/16/17 07:57 Laboratory Results - last 24 hr 07/16/17 07/16/17 07/16/17 01:35 01:35 01:35 WBC 12.0 H D RBC 3.88 Hgb 10.2 L Hct 33.3 MCV 85.7 MCH 26.3 MCHC 30.7 L RDW 18.9 H Plt Count 288 MPV 8.3 Neutrophils % 84.6 H Lymphocytes % 7.7 L D Monocytes % 7.0 Eosinophils % 0.4 D Basophils % 0.3 PT with INR 11.80 INR 1.04 PTT (Actin FS) 27.6 Sodium 142 Potassium 3.6 Chloride 100 Carbon Dioxide 32 Anion Gap 10 BUN 37 H Creatinine 1.5 H Creat Clearance w eGFR 32.70 Random Glucose 101 Lactic Acid Calcium 9.5 Magnesium Total Bilirubin 0.2 D AST 21 D ALT 19 Alkaline Phosphatase 71 Creatine Kinase 77 Troponin I < 0.02 Total Protein 7.0 Albumin 3.3 L Blood Type Antibody Screen 07/16/17 07/16/17 07/16/17 01:35 01:42 06:05 WBC 14.6 H RBC 3.45 L Hgb 9.1 L D Hct 29.2 L MCV 84.5 MCH 26.2 MCHC 31.0 L RDW 18.9 H Plt Count 247 MPV 8.7 Neutrophils % 89.0 H Lymphocytes % 3.5 L D Monocytes % 6.7 Eosinophils % 0.3 Basophils % 0.5 PT with INR INR PTT (Actin FS) Sodium Potassium Chloride Carbon Dioxide Anion Gap BUN Creatinine Creat Clearance w eGFR Random Glucose Lactic Acid 2.3 H* Calcium Magnesium Total Bilirubin AST ALT Alkaline Phosphatase Creatine Kinase Troponin I Total Protein Albumin Blood Type A NEGATIVE Antibody Screen Negative 07/16/17 07/16/17 06:05 06:36 WBC RBC Hgb Hct MCV MCH MCHC RDW Plt Count MPV Neutrophils % Lymphocytes % Monocytes % Eosinophils % Basophils % PT with INR INR PTT (Actin FS) Sodium 140 Potassium 3.2 L Chloride 102 Carbon Dioxide 30 Anion Gap 8 BUN 34 H Creatinine 1.2 H Creat Clearance w eGFR Random Glucose 108 H Lactic Acid 2.0 Calcium 8.1 L Magnesium 1.9 Total Bilirubin AST ALT Alkaline Phosphatase Creatine Kinase Troponin I Total Protein Albumin Blood Type Antibody Screen Physical Exam: NAD, awake , alert , knows name , locationand age . BIPAP mask on CV: Reg rhythm and tachy , no JVD Lungs : course ralles b/llungs Abd: soft, obese, decreased BS , no TTP Ext : no edema neuro exam : limited. moves all her exremities, no facial droop, EOMI, round equal pupils , reactive tolight cxray reviewed. 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 She was found to have severe sepsis 1- Severe sepsis : could be due to PNA , but hard to interpret her Cxray due to chronci scarring and changes . UA was not done in ER, UTI can't be r/o . - check UA , if POsitive check U cx - was started on cefepime , vanco , and azithro ( was on zosyn , doxy, and Augmentin at [place] x 2 days ) - ID for Abx - follow blood cx - send sputum cx - urine legionella and mycoplasma igM - pulm as on BIPAP and has h/o Shurg Eugenie - IVF 2- sinus tachy: likely response to sepsis . initial EKG with sinus rhythm, repeat one with sinus tachy with lateral ST depression. did not receive her am cardizem. - give cardizem - cont IVF - check trop. - if Trop rises or hard to cont rol tachy then will invite card 3- Acute hypoxic resp failure : due to PNA vs worsening h/o Shurg Eugenie .also has keven bond of COPD . clinically looks volume dep,eted and no signs of pulm congestion . - Cont BIPAP - cont treatment for presumptive PNA - hold mycophenolate pending Pulm recx - cont prednisone, but increase dose to 40 while in this acute illness. - cont NEbs. 4- Donnell: jameeey prerenal due to volume dpeletion . - cont IVF 5- h/o DVT: cont xarelto 6- Dementia :cont meds [place] records reviewed. DNR/DNI I'm not able to reach HCP , Chapis , but was able to reach daughter Kaycee and updated her and confirmed code status Meds reviewed, from [place] records and updated in EMR Visit type - Emergency Visit Emergency Visit: No - New Patient This patient is new to me today: Yes Date on this admission: 07/16/17 - Critical Care Critical Care patient: No
[2017-07-16 08:54] LABS: URINE APPEARANCE CLOUDY; URINE BILIRUBIN NEGATIVE (NEGATIVE); URINE BLOOD 1+ (NEGATIVE); URINE COLOR YELLOW; URINE GLUCOSE (UA) NEGATIVE (NEGATIVE); URINE KETONE NEGATIVE (NEGATIVE); URINE LEUK ESTERASE NEGATIVE (NEGATIVE); URINE NITRITE NEGATIVE (NEGATIVE); URINE PROTEIN NEGATIVE (NEGATIVE); URINE UROBILINOGEN NEGATIVE mg/dL (0.2-1.0)
[2017-07-16 09:02] LABS: EPI CELLS RARE /HPF (FEW)
[2017-07-16] MEDS ORDERED: PATIENT'S OWN MEDICATION (NON-FORMULARY) (Olopatadine Hcl [Pataday] 2.5 ML) OP SCH (10:00)
[2017-07-16] MEDS ORDERED: MYCOPHENOLATE MOFETIL 500 MG TABLET PO SCH (10:00)
[2017-07-16] MEDS ORDERED: PATIENT'S OWN MEDICATION (NON-FORMULARY) (Aa/Hydrolyzed Collagen, Whey [Lps Neutral Flavor PO SCH (10:00)
[2017-07-16] MEDS ORDERED: predniSONE 5 MG TABLET (UD) PO SCH ×2 (10:00)
[2017-07-16] MEDS ORDERED: predniSONE 20 MG TABLET (UD) ONE (10:36)
[2017-07-16] MEDS ORDERED: PANTOPRAZOLE 40 MG TABLET (FP) ONE (10:36)
[2017-07-16] MEDS ORDERED: POTASSIUM CHLORIDE ORAL LIQUID 20 MEQ/15 ML ONE (10:36)
[2017-07-16] MEDS: guaiFENesin 200 MG/10 ML 10 ML UNIT-DOSE CUPS PO SCH ×3 (10:56→22:11)
[2017-07-16] MEDS: LEVOTHYROXINE NA 88 MCG TABLET (FP) PO SCH (10:56)
[2017-07-16] MEDS: predniSONE 20 MG TABLET (UD) PO SCH (10:57)
[2017-07-16] MEDS: CALCIUM 500MG/VIT-D 200 UNITS COMBO TABLET (FP) PO SCH ×2 (10:57→22:11)
[2017-07-16] MEDS: MEMANTINE HCL 10 MG TABLET (FP) PO SCH ×2 (10:57→22:11)
[2017-07-16] MEDS: POLYETHYLENE GLYCOL 3350 119 GM BTL PO SCH (10:57)
[2017-07-16] MEDS: LORATADINE 10 MG TABLET PO SCH (10:57)
[2017-07-16] MEDS: FERROUS SO4 325 MG TABLET (FP) PO SCH (10:57)
[2017-07-16] MEDS: RIVAROXABAN 20 MG TABLET PO SCH (10:57)
[2017-07-16] MEDS: PANTOPRAZOLE 40 MG TABLET (FP) PO SCH (10:57)
[2017-07-16] MEDS: OXYBUTYNIN CHLORIDE 5 MG TABLET PO SCH (10:57)
[2017-07-16] MEDS: ASPIRIN 81 MG CHEWABLE TABLETS PO SCH (10:57)
[2017-07-16] MEDS: ESCITALOPRAM OXALATE 10 MG TABLET (FP) PO SCH (10:57)
[2017-07-16] MEDS: GABAPENTIN 300 MG CAPSULE (FP) PO SCH (10:57)
[2017-07-16] MEDS: BUDESONIDE/FORMETEROL FUMARATE 80/4.5 mcg INHALER IH SCH ×2 (10:57→21:53)
[2017-07-16] MEDS: AZITHROMYCIN IVPB 500 MG in DEXTROSE 5%-WATER - 250 ML IVPB SCH (11:29)
[2017-07-16] MEDS ORDERED: ACETAMINOPHEN INJECTION 100 ML IVPB ONE (13:34)
[2017-07-16] MEDS ORDERED: ACETAMINOPHEN 1000 MG/100 ML VIAL (NON FORMULARY) IVPB ONE (14:00)
[2017-07-16] MEDS ORDERED: ATORVASTATIN CA 40 MG TABLET (FP) ONE (21:55)
[2017-07-16] MEDS ORDERED: DOCUSATE SODIUM 100 MG CAPSULE (FP) PO ONE (21:56)
[2017-07-16] MEDS ORDERED: DONEPEZIL HCL 5 MG TABLET (FP) ONE (21:56)
[2017-07-16] MEDS: ATORVASTATIN CA 10 MG TABLET (FP) PO SCH (22:11)
[2017-07-16] MEDS: SENNOSIDES/DOCUSATE COMBO (SENNA PLUS) TABLET (UD) PO SCH (22:11)
[2017-07-16] MEDS: DONEPEZIL HCL 10 MG TABLET (FP) PO SCH (22:11)
[2017-07-16] MEDS: DOCUSATE SODIUM 100 MG CAPSULE (FP) PO SCH (22:11)
[2017-07-17] MEDS: SODIUM CHLORIDE 1,000 ML IV SCH (04:45)
[2017-07-17] MEDS: guaiFENesin 200 MG/10 ML 10 ML UNIT-DOSE CUPS PO SCH ×3 (06:39→21:38)
[2017-07-17] MEDS: LEVOTHYROXINE NA 88 MCG TABLET (FP) PO SCH (07:05)
[2017-07-17] MEDS ORDERED: VANCOMYCIN 1,000 MG in DEXTROSE 5%-WATER - 250 ML IVPB ONE (08:10)
[2017-07-17] MEDS ORDERED: CEFEPIME HCL 2 GM VIAL (RESTRICTED TO ID) IVPB ONE (08:10)
[2017-07-17] MEDS ORDERED: CEFEPIME 2 GM in SODIUM CHLORIDE 100 ML IVPB ONE (08:30)
[2017-07-17 08:33] LABS: ANION GAP 7 (8-16); BLOOD UREA NITROGEN 29 mg/dL (7-18); CHLORIDE 110 mmol/L (98-107); CO2 28 mmol/L (21-32); CREATININE 0.8 mg/dL (0.55-1.02); GLUCOSE,RANDOM 84 mg/dL (74-106); PHOSPHOROUS 2.7 mg/dL (2.5-4.9); POTASSIUM 3.7 mmol/L (3.5-5.1); SODIUM 145 mmol/L (136-145)
[2017-07-17 08:39] LABS: CALCIUM 8.7 mg/dL (8.5-10.1)
[2017-07-17 08:44] LABS: BASO % 0.2 % (0-2.0); LYMPH % 4.8 % (8-40); MCH 25.6 pg (25.7-33.7); MCHC 29.8 g/dl (32.0-36.0); MEAN CELL VOLUME 85.8 fl (80-96); MEAN PLT VOLUME 8.7 fl (7.5-11.1); MONO % 4.2 % (3.8-10.2); NEUT % 90.8 % (42.8-82.8); PLATELET COUNT 235 K/MM3 (134-434); RBC 3.48 M/mm3 (3.60-5.2); RDW 19.5 % (11.6-15.6); WHITE BLOOD COUNT 24.5 K/mm3 (4.0-10.0)
[2017-07-17 08:50] LABS: HEMATOCRIT 26.8 % (32.4-45.2); HEMOGLOBIN 8.6 GM/dL (10.7-15.3)
[2017-07-17] MEDS ORDERED: VANCOMYCIN 1 GRAM (PRE-DOCKED) 1,000 MG/250 ML BAG IVPB ONE (08:53)
[2017-07-17] MEDS ORDERED: CEFEPIME 2 GM/100 ML BAG IVPB ONE (08:54)
--- NOTE | 2017-07-17 09:26 | PN ---
Progress Note (short form) - Note Progress Note: ID consult dictated imp/reccd 87 year old female with churg coleman, recent MSSA olecronon bursitis, on doxycycline since 07/11 for UTI started on augmentin 07/15 for pneumonia, admitted with worsening cough and hypoxia asked to see for pneumonia she is alert and has a wet cough history of mild dementia and frequent falls copd on home oxygen was started on zosyn as well at the [place]- not sure she got it cxray unchanged currently on mycophenolate 500 daily and prednisone 15 mg daily at the [place] fever to 103.6, tachycardic to 140 in ED now improved cxray appears unchanged sepsis fever/hypoxia possible HCAP/immunocompromised host would screen for viral disease cultures have been sent influenza and rsv legionella urinary antigen continue vancomycin/zithromax history of ESBL ecoli UTI April 2017-switch to meropenem from cefepime contact isolation leukocytosis-infection/sterids Problem List - Problems (1) Sepsis Code(s): A41.9 - SEPSIS, UNSPECIFIED ORGANISM (2) Pneumonia Code(s): J18.9 - PNEUMONIA, UNSPECIFIED ORGANISM (3) Immunocompromised patient Code(s): D84.9 - IMMUNODEFICIENCY, UNSPECIFIED
[2017-07-17] MEDS: predniSONE 20 MG TABLET (UD) PO SCH (11:10)
[2017-07-17] MEDS: RIVAROXABAN 20 MG TABLET PO SCH (11:10)
[2017-07-17] MEDS: ESCITALOPRAM OXALATE 10 MG TABLET (FP) PO SCH (11:10)
[2017-07-17] MEDS: FERROUS SO4 325 MG TABLET (FP) PO SCH (11:10)
[2017-07-17] MEDS: CALCIUM 500MG/VIT-D 200 UNITS COMBO TABLET (FP) PO SCH ×2 (11:10→21:37)
[2017-07-17] MEDS: OXYBUTYNIN CHLORIDE 5 MG TABLET PO SCH (11:10)
[2017-07-17] MEDS: MEMANTINE HCL 10 MG TABLET (FP) PO SCH ×2 (11:10→21:38)
[2017-07-17] MEDS: GABAPENTIN 300 MG CAPSULE (FP) PO SCH (11:10)
[2017-07-17] MEDS: ASPIRIN 81 MG CHEWABLE TABLETS PO SCH (11:10)
[2017-07-17] MEDS: LORATADINE 10 MG TABLET PO SCH (11:10)
[2017-07-17] MEDS: PANTOPRAZOLE 40 MG TABLET (FP) PO SCH (11:10)
[2017-07-17] MEDS ORDERED: ALBUTEROL SO4 0.083% IH SOL 2.5 MG/3 ML VIAL.NEB. NEB ONE (11:31)
[2017-07-17 11:38] LABS: ARTERIAL BLD GAS O2 SATURATION 96.2 % (90-98.9); ARTERIAL BLOOD GAS BASE EXCESS 1.4 meq/l (-2-2); ARTERIAL BLOOD GAS pH 7.33 (7.35-7.45)
--- NOTE | 2017-07-17 11:38 | EKG ---
Test Reason : Blood Pressure : / mmHG Vent. Rate : 100 BPM Atrial Rate : 100 BPM P-R Int : 144 ms QRS Dur : 106 ms QT Int : 344 ms P-R-T Axes : 067 028 009 degrees QTc Int : 443 ms NORMAL SINUS RHYTHM POSSIBLE LEFT ATRIAL ENLARGEMENT NONSPECIFIC ST ABNORMALITY BORDERLINE ECG WHEN COMPARED WITH ECG OF 09-JUN-2017 22:22, NONSPECIFIC ST ABNORMALITY NOW PRESENT Confirmed by DALTON CEDILLO MD ([id number]) on 07/17/2017 11:38:21 AM Referred By: Confirmed By:DALTON CEDILLO MD
[2017-07-17] MEDS: ALBUTEROL SO4 0.083% IH SOL 2.5 MG/3 ML VIAL.NEB. NEB PRN (11:40)
[2017-07-17] MEDS: POLYETHYLENE GLYCOL 3350 119 GM BTL PO SCH (11:41)
[2017-07-17] MEDS: BUDESONIDE/FORMETEROL FUMARATE 80/4.5 mcg INHALER IH SCH ×2 (11:42→21:39)
[2017-07-17] MEDS ORDERED: MEROPENEM 500 MG PUSH 500 MG/10 ML IVPB SCH (12:00)
[2017-07-17] MEDS: MEROPENEM 500 MG PUSH 500 MG/10 ML DISP.SYRIN IVPUSH SCH (13:00)
[2017-07-17] MEDS ORDERED: AZITHROMYCIN IVPB 250 ML IVPB ONE (13:07)
[2017-07-17] MEDS: AZITHROMYCIN IVPB 500 MG in DEXTROSE 5%-WATER - 250 ML IVPB SCH (13:11)
--- NOTE | 2017-07-17 14:35 | PN ---
Teaching Attending Note Name of Resident: Macario Dietz ATTENDING PHYSICIAN STATEMENT I saw and evaluated the patient. I reviewed the resident's note and discussed the case with the resident. I agree with the resident's findings and plan as documented. SUBJECTIVE: seen at 9 am No fever or chills. feels "OK " today OBJECTIVE: NAD, awake , alert , knows name, does not know location today . BIPAP mask on CV: Reg rhythm and tachy , no JVD Lungs : course rales b/l lungs imporved from yesterday Abd: soft, obese, decreased BS , no TTP Ext : no edema cxray reviewed. 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 She was found to have severe sepsis 1- Severe sepsis : could be due to PNA. Lung auscultation improved - UA neg - appreciate ID help: VAnco, meropenem and azithro - follo wblood cx . - flu and RVP swab sent - try patient off BIPAP, on NC 2- Sinus tachy: likely response to sepsis - Cont cardizem - cont IVF - flat trop - Echo reviewed. 3- Acute hypoxic resp failure : due to PNA vs worsening h/o Shurg Eugenie . improved with Abx , which makes vasculitis flare less likely - try NC - cont ABx - hold mycophenolate pending Pulm recx - cont prednisone, but increase dose to 40 while in this acute illness. - cont NEbs. 4- Donnell: liley prerenal due to volume dpeletion .improved - cont IVF 5- h/o DVT: cont xarelto 6- Dementia :cont meds DNR/DNI
--- NOTE | 2017-07-17 14:47 | CON.PULM ---
Consult Consult Specialty:: PULMONARY Referred by:: Dr. 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 She is a poor historian, unable to provide further history at this time. Hypoxic to 76% on room air, improved on 50% ventimask. Reports a nonproductive cough. CXR showing bilateral infiltrates. - History Source History Provided By: Patient, Medical Record Limitations to Obtaining History: Dementia - Past Medical History MANAGER STRATEGY & ACCOUNT: Yes: Dementia Cardio/Vascular: Yes: HTN, Hyperlipdemia, Pulmonary Hypertension Pulmonary: Yes: COPD, O2 Dependent, Other (thoracotomy due to mass) Psych: Yes: Anxiety, Panic Musculoskeletal: Yes: Other (h/o of foot drop) Rheumatology: Yes: Vasculitis - Past Surgical History Past Surgical History: Yes: Thoracotomy - Alcohol/Substance Use Hx Alcohol Use: No - Smoking History Smoking history: Unknown if ever smoked Have you smoked in the past 12 months: No Aproximately how many cigarettes per day: 0 If you are a former smoker, when did you quit?: 45 years ago - Social History Usual Living Arrangement: Assisted Living ADL: Support Services History of Recent Travel: No Home Medications - Allergies Allergies/Adverse Reactions: Allergies Allergy/AdvReac Type Severity Reaction Status Date / Time levofloxacin [From Levaquin] AdvReac Unknown Itching Verified 07/16/17 00:27 - Home Medications Home Medications: Ambulatory Orders Aa/Hydrolyzed Collagen, Whey [Lps Neutral Flavor Liquid] 960 ml PO DAILY Acetaminophen [Mapap] 650 mg PO QID PRN 06/09/17 Albuterol Sulfate [Proventil HFA Inhaler -] 1 - 2 inh PO QID 06/09/17 Aspirin [ASA -] 81 mg PO DAILY 06/09/17 Atorvastatin Ca [Lipitor] 10 mg PO HS 06/09/17 Budesonide/Formeterol Fumarate [SYMBICORT 80/4.5mcg -] 1 inh PO BID 06/09/17 Calcium Carbonate/Vitamin D3 [Oyster Shell 500-Vit D3 200 Tb] 1 each PO BID 02/16 Diltiazem Cd [Cardizem Cd -] 240 mg PO DAILY 06/09/17 Docusate Sodium [Colace -] 200 mg PO HS 06/09/17 Donepezil HCl [Aricept] 10 mg PO HS 06/09/17 Escitalopram Oxalate [Lexapro -] 10 mg PO DAILY 06/09/17 Ferrous Sulfate 325 mg PO DAILY 06/09/17 Gabapentin 300 mg PO HS 06/09/17 Gabapentin 600 mg PO HS 06/09/17 Loratadine 10 mg PO DAILY 06/09/17 Memantine HCl [Namenda -] 10 mg PO BID 06/09/17 Mycophenolate Mofetil [Cellcept] 500 mg PO DAILY 06/09/17 Olopatadine HCl [Pataday] 2.5 ml OP DAILY 06/09/17 Oxybutynin Chloride 5 mg PO DAILY 06/09/17 Polyethylene Glycol 3350 [Miralax 119 gm Btl -] 17 gm PO DAILY 06/09/17 Rivaroxaban [Xarelto -] 20 mg PO DAILY 06/09/17 Sennosides/Docusate Sodium [Senna Laxative Tablet] 2 each PO HS 06/09/17 Tiotropium Norris [Spiriva] 1 inh PO DAILY 06/09/17 Pantoprazole Sodium [Protonix] 40 mg PO DAILY #30 tablet. 06/14/17 Amoxicillin/Potassium Clav [Augmentin 875-125 Tablet] 1 each PO BID 07/16/17 Clonazepam [Klonopin -] 0.5 mg PO BID 07/16/17 Doxycycline Hyclate 100 mg PO BID 07/16/17 Guaifenesin [Robitussin -] 10 ml PO TID 07/16/17 Ipratropium/Albuterol Sulfate [Iprat-Albut 0.5-3(2.5) mg/3 ml] 3 ml IH Q6H PRN 07/16/17 L. Acidophilus/Pectin, [place] [Acidophilus Capsule] 1 each PO BID 07/16/17 Levothyroxine Sodium [Synthroid] 88 mcg PO AM 07/16/17 Piperacillin/Tazob 3.375 gm [Zosyn 3.375GM Ivpb (Premix)] 3.375 gm IV Q6H Prednisone 15 mg PO DAILY 07/16/17 Family Disease History - Family Disease History Family Disease History: Heart Disease: Father, Sister Review of Systems Unable to obtain ROS, reason: poor historian Physical Exam Vital Sings: Vital Signs Temperature 97.8 F 07/17/17 07:16 Pulse Rate 95 H 07/17/17 13:58 Respiratory Rate 18 07/17/17 11:10 Blood Pressure 172/75 07/17/17 11:10 O2 Sat by Pulse Oximetry (%) 97 07/17/17 13:58 Constitutional: Yes: Mild Distress (mildly tachypneic at rest) Eyes: Yes: Conjunctiva Clear, EOM Intact HENT: Yes: Atraumatic, Normocephalic Neck: Yes: Supple, Trachea Midline Cardiovascular: Yes: Regular Rate and Rhythm Respiratory: Yes: Rhonchi (bilateral) ...Clubbing: No Gastrointestinal: Yes: Normal Bowel Sounds, Soft. No: Tenderness Edema: No Neurological: Yes: Confusion Labs: CBC, BMP 07/17/17 07:30 07/17/17 07:30 ABG Results ABG pH 7.33 (7.35-7.45) L 07/17/17 11:28 ABG pCO2 at Pt Temp 53.0 mmHg (35-45) H D 07/17/17 11:28 ABG pO2 at Pt Temp 81.0 mmHg (68-100) D 07/17/17 11:28 ABG HCO3 27.2 meq/L (22-26) H 07/17/17 11:28 ABG O2 Sat (Measured) 96.2 % (90-98.9) 07/17/17 11:28 ABG O2 Content 11.8 % vol (15-22) L 07/17/17 11:28 ABG Base Excess 1.4 meq/l (-2-2) 07/17/17 11:28 Imaging - Results Chest X-ray: Report Reviewed, Image Reviewed (bilateral infiltrates) Problem List - Problems (1) Immunocompromised patient Code(s): D84.9 - IMMUNODEFICIENCY, UNSPECIFIED (2) Pneumonia Code(s): J18.9 - PNEUMONIA, UNSPECIFIED ORGANISM (3) COPD with acute exacerbation Code(s): J44.1 - CHRONIC OBSTRUCTIVE PULMONARY DISEASE W (ACUTE) EXACERBATION (5) Acute and chronic respiratory failure with hypoxia Code(s): J96.21 - ACUTE AND CHRONIC RESPIRATORY FAILURE WITH HYPOXIA (6) Dementia Code(s): F03.90 - UNSPECIFIED DEMENTIA WITHOUT BEHAVIORAL DISTURBANCE Qualifiers: Dementia type: unspecified type Dementia behavioral disturbance: without behavioral disturbance Qualified Code(s): F03.90 - Unspecified dementia without behavioral disturbance Assessment/Plan Acute on Chronic Hypoxic Respiratory Failure Pneumonia Acute COPD Exacerbation Churg Eugenie Syndrome on Cellcept h/o DVT HTN Hyperlipidemia Depression Dementia - IV antibiotics per ID - f/u cultures - O2 to keep Spo2 >90% - inhaled bronchodilators - short course of medrol - aspiration precautions - continue anticoagulation Thank you for this consult José Luis Beauchamp MD
--- NOTE | 2017-07-17 15:27 | CONS ---
DATE OF CONSULTATION: DATE OF DICTATION: 07/17/2017 INFECTIOUS DISEASE CONSULTATION REQUESTED BY: Hospitalist Service. HISTORY OF PRESENT ILLNESS: This is an 87-year-old woman who is currently living at the [facility]. She has a history of Churg-Eugenie and is maintained on mycophenolate and prednisone. She has a history of multiple mechanical falls. She has COPD and is on home oxygen. She was recently in the hospital for a left olecranon bursitis. Cultures grew MSSA. She did well with IV antibiotics. The [facility] records were reviewed. The patient suffered from mild dementia and is a poor historian. She was recently started on doxycycline on July 11 for a UTI. On July 15, Augmentin was added for pneumonia. IV Zosyn was ordered. It is unclear if she ever got it. She was sent to the emergency room today with worsening shortness of breath and hypoxia. She was on BiPAP on arrival. Currently, she is awake and alert. Reports she had a recent fall at the [facility]. States she is having no problems with her left elbow. She denies any fevers. PAST MEDICAL HISTORY: Notable for COPD on home oxygen, Alzheimer dementia, hypertension, hyperlipidemia, GERD, hypothyroidism, coronary artery disease, Churg-Eugenie, anxiety, depression, history of frequent falls, recent MSSA olecranon bursitis, overactive bladder, and recent pneumonia. SURGICAL HISTORY: Notable for left lung lobectomy. ALLERGIES: LEVOFLOXACIN. MEDICATIONS: As an outpatient, include DuoNeb, Ventolin nebulizer, aspirin, atorvastatin, Augmentin, doxycycline, Synthroid, Klonopin, Piperacillin-Tazobactam, Symbicort, Cardizem, calcium with vitamin D, Colace, Aricept, ferrous sulfate, Lexapro, Namenda, loratadine, gabapentin, Pataday eye drops, mycophenolate 500 mg daily, MiraLAX, Xarelto, and she was on prednisone 15 mg daily. SOCIAL HISTORY: She is a former smoker. She smoked for 40 years. She lives in assisted living. No history of alcohol or substance use. FAMILY HISTORY: Noncontributory. REVIEW OF SYSTEMS: She complains of cough and falls. PHYSICAL EXAMINATION: Vital Signs: In the emergency room, her fever was as high as 103.6 with a heart rate of 140, currently 97.8 with a heart rate of 91, her blood pressure is 155/82, respiratory rate is 18. She is quite comfortable and off BiPAP. HEENT: She is normocephalic. Her eyes are anicteric. Her mouth is very, very dry and she has poor mouth hygiene. Neck: Supple. Lungs: Bilateral rhonchi. Heart: Regular rate and rhythm. Abdomen: Soft, nontender. Extremities: Without edema. She has no swelling of her elbow. LABORATORY DATA: On admission, her white count was 12,000 and this morning is 24.5, hemoglobin 8.6, platelets are 235. Her BUN 37 and creatinine 1.5 on admission. This morning, BUN 29 and creatinine 0.8. Urinalysis is negative. Blood and urine cultures have been sent and are pending. Chest x-ray looks some improvement from prior. There is no clear-cut change in her x-rays, which show postsurgical changes in the right upper lobe. ASSESSMENT AND RECOMMENDATIONS: In summary, this is an 87-year-old woman immunocompromised host by virtue of her medications for Churg-Eugenie admitted with hypoxia, fever, tachycardia, elevated lactic acid, consistent with sepsis, fever, hypoxia, possible healthcare-associated pneumonia. Would screen for viral disease as well. Cultures have been sent. Would add a sputum culture, a legionella urinary antigen. Would obtain swabs for influenza and respiratory syncytial virus. Would continue vancomycin and Zithromax. She has a history of Escherichia coli extended-spectrum beta-lactamase in her urine from April 2017, would switch to meropenem for now, and place on contact isolation. I suspect her leukocytosis in the setting of clinical improvement is more consistent with her steroid use but would continue her on meropenem until cultures are back. Further recommendations to follow. MAGDALENO ROE M.D. [id number]
[2017-07-17] MEDS ORDERED: methylPREDNISolone NA SUCC 125 MG/2 ML VIAL ONE (15:49)
[2017-07-17] MEDS: methylPREDNISolone NA SUCC 125 MG/2 ML VIAL IVPUSH SCH ×2 (15:57→21:39)
--- NOTE | 2017-07-17 15:57 | PN ---
Physical Exam: SUBJECTIVE: Patient states she's very short of breath, never felt like this before, having cough, unsure why she's brought in the ED. OBJECTIVE: Vital Signs Period Temp Pulse Resp BP Sys/[place] Pulse Ox Last 24 Hr 97.8 F-103.5 F 87-130 15-24 108-172/59-82 91-99 General: In acute distress on initially on NC, subsequently restarted on BiPAP, unable to speak in full sentences, anxious and clammy. Eyes: PERRLA ENT: Oropharynx clear with no lesions/erythema. Neck: Supple with no LAD or masses. Lymph Nodes: No cervical or inguinal LAD. Cardiovascular: Tachycardic, Regular rhythm, S1 and S2 normal, no m/g/r. Lungs: Bilateral rales anteriorly and posteriorly, accessory muscle use Abdomen: Normoactive bowel sounds. Non-distended, No tenderness even upon deep palpation, no guarding/rebound Extremeties: No peripheral edema CBCD WBC 24.5 K/mm3 (4.0-10.0) H D 07/17/17 07:30 RBC 3.48 M/mm3 (3.60-5.2) L 07/17/17 07:30 Hgb 8.6 GM/dL (10.7-15.3) L 07/17/17 07:30 Hct 26.8 % (32.4-45.2) L 07/17/17 07:30 MCV 85.8 fl (80-96) 07/17/17 07:30 MCHC 29.8 g/dl (32.0-36.0) L 07/17/17 07:30 RDW 19.5 % (11.6-15.6) H 07/17/17 07:30 Plt Count 235 K/MM3 (134-434) 07/17/17 07:30 MPV 8.7 fl (7.5-11.1) 07/17/17 07:30 CMP Sodium 145 mmol/L (136-145) 07/17/17 07:30 Potassium 3.7 mmol/L (3.5-5.1) 07/17/17 07:30 Chloride 110 mmol/L (98-107) H 07/17/17 07:30 Carbon Dioxide 28 mmol/L (21-32) 07/17/17 07:30 Anion Gap 7 (8-16) L 07/17/17 07:30 BUN 29 mg/dL (7-18) H 07/17/17 07:30 Creatinine 0.8 mg/dL (0.55-1.02) 07/17/17 07:30 Creat Clearance w eGFR 32.70 (>60) 07/16/17 01:35 Calcium 8.7 mg/dL (8.5-10.1) 07/17/17 07:30 Total Bilirubin 0.2 mg/dL (0.2-1.0) D 07/16/17 01:35 AST 21 U/L (15-37) D 07/16/17 01:35 ALT 19 U/L (12-78) 07/16/17 01:35 Alkaline Phosphatase 71 U/L (45-117) 07/16/17 01:35 Total Protein 7.0 g/dl (6.4-8.2) 07/16/17 01:35 Albumin 3.3 g/dl (3.4-5.0) L 07/16/17 01:35 ABG Results ABG pH 7.33 (7.35-7.45) L 07/17/17 11:28 ABG pCO2 at Pt Temp 53.0 mmHg (35-45) H D 07/17/17 11:28 ABG pO2 at Pt Temp 81.0 mmHg (68-100) D 07/17/17 11:28 ABG HCO3 27.2 meq/L (22-26) H 07/17/17 11:28 ABG O2 Sat (Measured) 96.2 % (90-98.9) 07/17/17 11:28 ABG O2 Content 11.8 % vol (15-22) L 07/17/17 11:28 ABG Base Excess 1.4 meq/l (-2-2) 07/17/17 11:28 Urine Test Results Urine Color Yellow 07/16/17 08:18 Urine Appearance Cloudy 07/16/17 08:18 Urine pH 5.0 (5.0-8.0) 07/16/17 08:18 Ur Specific [place] 1.016 (1.001-1.035) 07/16/17 08:18 Urine Protein Negative (NEGATIVE) 07/16/17 08:18 Urine Glucose (UA) Negative (NEGATIVE) 07/16/17 08:18 Urine Ketones Negative (NEGATIVE) 07/16/17 08:18 Urine Blood 1+ (NEGATIVE) H 07/16/17 08:18 Urine Nitrite Negative (NEGATIVE) 07/16/17 08:18 Urine Bilirubin Negative (NEGATIVE) 07/16/17 08:18 Ur Leukocyte Esterase Negative (NEGATIVE) 07/16/17 08:18 Ur Epithelial Cells Rare /HPF (FEW) 07/16/17 08:18 ASSESSMENT/PLAN: 87 yo F admitted for severe sepsis. Severe sepsis - Lactic acid normalized - Likely 2/2 PNA - Cont. IVF and azithromycin (day 2), vanco (day 1) and meropenem (day 1) - f/u blood and sputum cultures and respiratory viral panel Acute on chronic hypoxic respiratory failure - In the setting of churg eugenie syndrome - Cont. O2 via BiPAP > 90% - Duoneb QID and ventolin Q4H PRN and symbicort - Cont. solumedrol 60mg TID Tachycardia - Likely 2/2 sepsis and acute respiratory failure - Cont. 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 solumedrol 60mh TID - Cont. to hold Mycophenolate Normocytic Anemia - Baseline hgb around 8.0 - Continue ferrous sulfate h/o CAD - Cont. ASA 81mg daily Alzheimer's Dementia - Cont. Donepezil 10mg daily and Namenda 10mg daily HTN - Cont. Cardizem 240 daily HLD - Continue Lipitor 10mg daily Hypothyroidism - Cont. Synthroid 75mcg Overactive Bladder - Con. Oxybutynin 5mg daily Non-Hodgkins Lymphoma - Mycophenolate held - Outpatient followup Anxiety/Depression - Cont. Xanax 0.25mg TID and Lexapro 10mg daily Constipation - Continue senna, colace, and miralax FEN - IV NS @ 75mls/hr - Electrolytes wnl - NPO except PO meds Prophylaxis - DVT: Already on Xarelto Code Status - DNR/DNI-confirmed from [place] papers Disposition - Admit to med-surg Visit type - Emergency Visit Emergency Visit: Yes ED Registration Date: 07/16/17 Care time: The patient presented to the Emergency Department on the above date and was hospitalized for further evaluation of their emergent condition. - New Patient This patient is new to me today: Yes Date on this admission: 07/17/17 - Critical Care Critical Care patient: No - Discharge Referral Referred to [facility] Med P.C[facility] No
[2017-07-17] MEDS: DOCUSATE SODIUM 100 MG CAPSULE (FP) PO SCH (21:37)
[2017-07-17] MEDS: ATORVASTATIN CA 10 MG TABLET (FP) PO SCH (21:37)
[2017-07-17] MEDS: DONEPEZIL HCL 10 MG TABLET (FP) PO SCH (21:37)
[2017-07-17] MEDS: SENNOSIDES/DOCUSATE COMBO (SENNA PLUS) TABLET (UD) PO SCH (21:38)
[2017-07-18] MEDS: MEROPENEM 500 MG PUSH 500 MG/10 ML DISP.SYRIN IVPUSH SCH ×4 (02:31→17:07)
--- NOTE | 2017-07-18 03:18 | PN ---
Physical Exam: SUBJECTIVE: Patient seen and examined at bedside. still complaining of chest congestion and wheezing. denies any fever, chills, N/V/D/C. OBJECTIVE: Vital Signs Period Temp Pulse Resp BP Sys/Bahena Pulse Ox Last 24 Hr 97.8 F-98.8 F 75-98 14-18 103-172/60-86 97-99 GENERAL: The patient is awake, alert, and fully oriented, in mild respiratory distress with O2 mask. HEAD: Normal with no signs of trauma. EYES: PERRL, extraocular movements intact, sclera anicteric, conjunctiva clear. No ptosis. ENT: Ears normal, nares patent, oropharynx clear without exudates, moist mucous membranes. NECK: supple. LUNGS: diffuse wheezing with coarse breath sounds , no crackles, no accessory muscle use. HEART: sinus tachy, S1, S2 without murmur, rub or gallop. ABDOMEN: Soft, nontender, nondistended, normoactive bowel sounds, no guarding, no rebound, EXTREMITIES: 2+ pulses, warm, well-perfused, no edema. some echymoses on the arms B/L NEUROLOGICAL: No focal deficit . Normal speech, gait not observed. PSYCH: Normal mood, normal affect. SKIN: Warm, dry, no rashes or lesions noted Laboratory Results - last 24 hr 07/17/17 07/17/17 07/17/17 07:30 07:30 11:28 WBC 24.5 H D RBC 3.48 L Hgb 8.6 L Hct 26.8 L MCV 85.8 MCH 25.6 L MCHC 29.8 L RDW 19.5 H Plt Count 235 MPV 8.7 Neutrophils % 90.8 H Lymphocytes % 4.8 L D Monocytes % 4.2 Eosinophils % 0.0 D Basophils % 0.2 ABG pH 7.33 L ABG pCO2 at Pt Temp 53.0 H D ABG pO2 at Pt Temp 81.0 D ABG HCO3 27.2 H ABG O2 Sat (Measured) 96.2 ABG O2 Content 11.8 L ABG Base Excess 1.4 O2 Delivery Device V/m Oxygen Flow Rate 50% Sodium 145 Potassium 3.7 Chloride 110 H Carbon Dioxide 28 Anion Gap 7 L BUN 29 H Creatinine 0.8 Random Glucose 84 Calcium 8.7 Phosphorus 2.7 Magnesium 2.0 Active Medications Generic Name Dose Route Start Last Admin Trade Name Freq PRN Reason Stop Dose Admin Acetaminophen 650 mg 07/16/17 06:11 Tylenol - PO QID PRN pain Albuterol Sulfate 1 amp 07/16/17 05:50 07/17/17 11:40 Ventolin 0.083% Nebulizer Soln - NEB 1 amp Q4H PRN Administration SHORT OF BREATH/WHEEZING Albuterol/Ipratropium 1 amp 07/19/17 08:00 Duoneb - NEB RQID [facility] Aspirin 81 mg 07/16/17 10:00 07/17/17 11:10 Asa - PO 81 mg DAILY [facility] Administration Atorvastatin Calcium 10 mg 07/16/17 22:00 07/17/17 21:37 Lipitor - PO 10 mg HS [facility] Administration Budesonide/Formoterol Fumarate 1 puff 07/16/17 10:00 07/17/17 21:39 Symbicort 80/4.5mcg - IH Not Given BID [facility] Calcium Carbonate/Cholecalciferol 1 tab 07/16/17 10:00 07/17/17 21:37 Os-Juan 500+D - PO 1 tab BID [facility] Administration Diltiazem HCl 240 mg 07/17/17 10:00 07/17/17 11:10 Cardizem Cd - PO 240 mg DAILY [facility] Administration Docusate Sodium 200 mg 07/16/17 22:00 07/17/17 21:37 Colace - PO 200 mg HS [facility] Administration Donepezil HCl 10 mg 07/16/17 22:00 07/17/17 21:37 Aricept - PO 10 mg HS [facility] Administration Escitalopram Oxalate 10 mg 07/16/17 10:00 07/17/17 11:10 Lexapro - PO 10 mg DAILY [facility] Administration Ferrous Sulfate 325 mg 07/16/17 10:00 07/17/17 11:10 Feosol - PO 325 mg DAILY [facility] Administration Gabapentin 300 mg 07/16/17 10:00 07/17/17 11:10 Neurontin - PO 300 mg DAILY [facility] Administration Guaifenesin 10 ml 07/16/17 06:30 07/17/17 21:38 Robitussin - PO 10 ml TID [facility] Administration Sodium Chloride 1,000 mls @ 75 mls/hr 07/16/17 04:45 07/17/17 04:45 Normal Saline - IV 75 mls/hr ASDIR [facility] Administration Azithromycin 500 mg/ Dextrose 250 mls @ 250 mls/hr 07/16/17 10:00 07/17/17 13 :11 IVPB 250 mls/hr DAILY [facility] Administration Vancomycin HCl 1,000 mg/ 250 mls @ 250 mls/hr 07/18/17 10:00 Dextrose IVPB DAILY [facility] Protocol Meropenem 500 mg in 10 mls @ 120 mls/hr 07/17/17 10:30 07/17/17 13:00 Merrem (Restricted To Id) - IVPUSH 120 mls/hr Q8H-IV [facility] Administration Levothyroxine Sodium 88 mcg 07/16/17 07:00 07/17/17 07:05 Synthroid - PO 88 mcg AM [facility] Administration Loratadine 10 mg 07/16/17 10:00 07/17/17 11:10 Claritin - PO 10 mg DAILY [facility] Administration Memantine 10 mg 07/16/17 10:00 07/17/17 21:38 Namenda - PO 10 mg BID [facility] Administration Methylprednisolone Sodium Succinate 60 mg 07/17/17 15:15 07/17/17 21:39 Solu-Medrol - IVPUSH 60 mg TID [facility] Administration Non-Formulary Medication 2.5 ml 07/16/17 10:00 Olopatadine Hcl [Pataday] OP DAILY [facility] Oxybutynin Chloride 5 mg 07/16/17 10:00 07/17/17 11:10 Ditropan - PO 5 mg DAILY [facility] Administration Pantoprazole Sodium 40 mg 07/16/17 10:00 07/17/17 11:10 Protonix - PO 40 mg DAILY [facility] Administration Polyethylene Glycol 17 gm 07/16/17 10:00 07/17/17 11:41 Miralax (For Daily Use) - PO Not Given DAILY [facility] Rivaroxaban 20 mg 07/16/17 10:00 07/17/17 11:10 Xarelto - PO 20 mg DAILY [facility] Administration Senna/Docusate Sodium 2 tablet 07/16/17 22:00 07/17/17 21:38 Pericolace - PO 2 tablet HS [facility] Administration CBC, BMP 07/18/17 06:10 07/18/17 06:10 ASSESSMENT/PLAN: 87 y/o lady with h/o CAD, COPD on home O2 and prednisone, Alzheimer's dementia , HTN, HLD, GERD, hypothyroidism, 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 She was found to have severe sepsis Severe sepsis likely 2/2 PNA - Lactic acid normalized - Likely 2/2 PNA - Cont. IVF and azithromycin (day 3), vanco (day 2) and meropenem (day 3) - f/u blood and sputum cultures and respiratory viral panel - Vanco troph in AM Acute on chronic hypoxic respiratory failure - In the setting of churg eugenie syndrome - Cont. O2 via BiPAP > 90% PRN uring the day and HS - Duoneb QID and ventolin Q4H PRN and symbicort - Cont. solumedrol 60mg TID Sinus Tachycardia - Likely 2/2 sepsis and acute respiratory failure - Cont. 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 solumedrol 60mh TID - Cont. to hold Mycophenolate Normocytic Anemia - Baseline hgb around 8.0 - Continue ferrous sulfate h/o CAD - Cont. ASA 81mg daily Alzheimer's Dementia - Cont. Donepezil 10mg daily and Namenda 10mg daily HTN - Cont. Cardizem 240 daily HLD - Continue Lipitor 10mg daily Hypothyroidism - Cont. Synthroid 75mcg Overactive Bladder - Con. Oxybutynin 5mg daily Non-Hodgkins Lymphoma - Mycophenolate held - Outpatient followup Anxiety/Depression - Cont. Xanax 0.25mg TID and Lexapro 10mg daily Constipation - Continue senna, colace, and miralax FEN - IV NS @ 75mls/hr - Electrolytes wnl - advanced to low sodium diet Prophylaxis - DVT: Already on Xarelto Code Status - DNR/DNI-confirmed from [place] papers Disposition - Admit to med-surg Visit type - Emergency Visit Emergency Visit: Yes ED Registration Date: 07/16/17 Care time: The patient presented to the Emergency Department on the above date and was hospitalized for further evaluation of their emergent condition. - New Patient This patient is new to me today: No - Critical Care Critical Care patient: No - Discharge Referral Referred to [facility] Med P.C[facility] No
[2017-07-18] MEDS: methylPREDNISolone NA SUCC 125 MG/2 ML VIAL IVPUSH SCH ×3 (06:32→22:12)
[2017-07-18] MEDS: guaiFENesin 200 MG/10 ML 10 ML UNIT-DOSE CUPS PO SCH ×3 (06:32→22:12)
[2017-07-18] MEDS: LEVOTHYROXINE NA 88 MCG TABLET (FP) PO SCH (06:32)
[2017-07-18] MEDS: SODIUM CHLORIDE 1,000 ML IV SCH ×2 (06:33→22:10)
[2017-07-18 07:43] LABS: BASO % 0.2 % (0-2.0); HEMATOCRIT 28.7 % (32.4-45.2); HEMOGLOBIN 8.4 GM/dL (10.7-15.3); LYMPH % 3.9 % (8-40); MCH 25.2 pg (25.7-33.7); MCHC 29.3 g/dl (32.0-36.0); MEAN CELL VOLUME 85.8 fl (80-96); MEAN PLT VOLUME 8.9 fl (7.5-11.1); MONO % 2.7 % (3.8-10.2); NEUT % 93.2 % (42.8-82.8); PLATELET COUNT 223 K/MM3 (134-434); RBC 3.34 M/mm3 (3.60-5.2); RDW 19.1 % (11.6-15.6); WHITE BLOOD COUNT 13.2 K/mm3 (4.0-10.0)
[2017-07-18] MEDS: ALBUTEROL SO4 0.083% IH SOL 2.5 MG/3 ML VIAL.NEB. NEB PRN (08:04)
[2017-07-18 08:16] LABS: ANION GAP 9 (8-16); BLOOD UREA NITROGEN 30 mg/dL (7-18); CALCIUM 9.2 mg/dL (8.5-10.1); CHLORIDE 108 mmol/L (98-107); CO2 28 mmol/L (21-32); GLUCOSE,RANDOM 113 mg/dL (74-106); POTASSIUM 3.8 mmol/L (3.5-5.1); SODIUM 145 mmol/L (136-145)
[2017-07-18 08:18] LABS: CREATININE 0.7 mg/dL (0.55-1.02)
--- NOTE | 2017-07-18 10:20 | EKG ---
Test Reason : Blood Pressure : / mmHG Vent. Rate : 092 BPM Atrial Rate : 092 BPM P-R Int : 122 ms QRS Dur : 104 ms QT Int : 362 ms P-R-T Axes : 071 040 044 degrees QTc Int : 447 ms SINUS RHYTHM WITH PREMATURE ATRIAL COMPLEXES OTHERWISE NORMAL ECG WHEN COMPARED WITH ECG OF 16-JUL-2017 07:06, PREMATURE ATRIAL COMPLEXES ARE NOW PRESENT VENT. RATE HAS DECREASED BY [address] NO LONGER DEPRESSED IN INFERIOR LEADS ST NO LONGER DEPRESSED IN ANTEROLATERAL LEADS T WAVE INVERSION NO LONGER EVIDENT IN INFERIOR LEADS T WAVE INVERSION NO LONGER EVIDENT IN LATERAL LEADS Confirmed by LULA SHIRLEY, BILLY ([id number]) on 07/18/2017 10:19:25 AM Referred By: Katharine DOTY Confirmed By:BILLY COTTON MD
[2017-07-18] MEDS: AZITHROMYCIN IVPB 500 MG in DEXTROSE 5%-WATER - 250 ML IVPB SCH (10:40)
[2017-07-18] MEDS: VANCOMYCIN 1,000 MG in DEXTROSE 5%-WATER - 250 ML IVPB SCH (10:40)
[2017-07-18] MEDS ORDERED: PT OWN MED DRAWER 7, Y5N ONE ×2 (10:56→17:02)
[2017-07-18] MEDS: CALCIUM 500MG/VIT-D 200 UNITS COMBO TABLET (FP) PO SCH ×2 (10:58→22:12)
[2017-07-18] MEDS: ASPIRIN 81 MG CHEWABLE TABLETS PO SCH (10:58)
[2017-07-18] MEDS: RIVAROXABAN 20 MG TABLET PO SCH (10:58)
[2017-07-18] MEDS: OXYBUTYNIN CHLORIDE 5 MG TABLET PO SCH (10:59)
[2017-07-18] MEDS: ESCITALOPRAM OXALATE 10 MG TABLET (FP) PO SCH (10:59)
[2017-07-18] MEDS: POLYETHYLENE GLYCOL 3350 119 GM BTL PO SCH (10:59)
[2017-07-18] MEDS: MEMANTINE HCL 10 MG TABLET (FP) PO SCH ×2 (10:59→22:12)
[2017-07-18] MEDS: PANTOPRAZOLE 40 MG TABLET (FP) PO SCH (10:59)
[2017-07-18] MEDS: LORATADINE 10 MG TABLET PO SCH (10:59)
[2017-07-18] MEDS: GABAPENTIN 300 MG CAPSULE (FP) PO SCH (10:59)
[2017-07-18] MEDS: FERROUS SO4 325 MG TABLET (FP) PO SCH (10:59)
--- NOTE | 2017-07-18 12:48 | PN ---
Progress Note (short form) - Note Progress Note: clinically improved still some cough Vital Signs Period Temp Pulse Resp BP Sys/Bahena Pulse Ox Last 24 Hr 97.8 F-98.9 F 75-95 14-22 103-142/60-86 97-99 cor-rrr lungs bilateral rhonchi abd soft,nt ext trace edema CBC, BMP 07/18/17 06:10 07/18/17 06:10 Microbiology 07/16/17 08:18 Urine - Urine Montiel Urine Culture - Final 07/16/17 01:35 Blood - Peripheral Venous Blood Culture - Preliminary NO GROWTH OBTAINED AFTER 48 HOURS, INCUBATION TO CONTINUE FOR 3 DAYS. 07/16/17 01:36 Blood - Peripheral Venous Blood Culture - Preliminary NO GROWTH OBTAINED AFTER 48 HOURS, INCUBATION TO CONTINUE FOR 3 DAYS. 07/17/17 13:35 Nasopharyngeal Swab Respiratory Syncytial Virus Ag - Final 07/17/17 13:50 Nasopharyngeal Swab Influenza Types A,B Antigen (NATHAN) - Final 07/17/17 13:50 Nasopharyngeal Swab - Final cxray appears unchanged a/p sepsis fever/hypoxia possible HCAP/immunocompromised host cultures have been sent influenza and rsv antigen negative legionella urinary antigen needs to be sent continue vancomycin/zithromax/meropenem history of ESBL ecoli UTI April 2017- covanco trough before 4th dose leukocytosis-infection/steroids- improved Problem List - Problems (1) Sepsis Code(s): A41.9 - SEPSIS, UNSPECIFIED ORGANISM (2) Pneumonia Code(s): J18.9 - PNEUMONIA, UNSPECIFIED ORGANISM (3) Immunocompromised patient Code(s): D84.9 - IMMUNODEFICIENCY, UNSPECIFIED
--- NOTE | 2017-07-18 12:51 | PN ---
Progress Note, Physician History of Present Illness: pulmonary alert,confused,on vm 50%, o2 sat 98% - Current Medication List Current Medications: Active Medications Acetaminophen (Tylenol -) 650 mg PO QID PRN PRN Reason: pain Albuterol Sulfate (Ventolin 0.083% Nebulizer Soln -) 1 amp NEB Q4H PRN PRN Reason: SHORT OF BREATH/WHEEZING Last Admin: 07/18/17 08:04 Dose: 1 amp Albuterol/Ipratropium (Duoneb -) 1 amp NEB RQID [facility] Aspirin (Asa -) 81 mg PO DAILY [facility] Last Admin: 07/18/17 10:58 Dose: 81 mg Atorvastatin Calcium (Lipitor -) 10 mg PO HS [facility] Last Admin: 07/17/17 21:37 Dose: 10 mg Budesonide/Formoterol Fumarate (Symbicort 80/4.5mcg -) 1 puff IH BID [facility] Last Admin: 07/17/17 21:39 Dose: Not Given Calcium Carbonate/Cholecalciferol (Os-Juan 500+D -) 1 tab PO BID [facility] Last Admin: 07/18/17 10:58 Dose: 1 tab Diltiazem HCl (Cardizem Cd -) 240 mg PO DAILY [facility] Last Admin: 07/18/17 10:58 Dose: 240 mg Docusate Sodium (Colace -) 200 mg PO HS [facility] Last Admin: 07/17/17 21:37 Dose: 200 mg Donepezil HCl (Aricept -) 10 mg PO HS [facility] Last Admin: 07/17/17 21:37 Dose: 10 mg Escitalopram Oxalate (Lexapro -) 10 mg PO DAILY [facility] Last Admin: 07/18/17 10:59 Dose: 10 mg Ferrous Sulfate (Feosol -) 325 mg PO DAILY [facility] Last Admin: 07/18/17 10:59 Dose: 325 mg Gabapentin (Neurontin -) 300 mg PO DAILY [facility] Last Admin: 07/18/17 10:59 Dose: 300 mg Guaifenesin (Robitussin -) 10 ml PO TID [facility] Last Admin: 07/18/17 06:32 Dose: 10 ml Sodium Chloride (Normal Saline -) 1,000 mls @ 75 mls/hr IV ASDIR [facility] Last Admin: 07/18/17 06:33 Dose: 75 mls/hr Azithromycin 500 mg/ Dextrose 250 mls @ 250 mls/hr IVPB DAILY [facility] Last Admin: 07/18/17 10:40 Dose: 250 mls/hr Vancomycin HCl 1,000 mg/ (Dextrose) 250 mls @ 250 mls/hr IVPB DAILY [facility] PRN Reason: Protocol Last Admin: 07/18/17 10:40 Dose: 250 mls/hr Meropenem (Merrem (Restricted To Id) -) 500 mg in 10 mls @ 120 mls/hr IVPUSH Q8H-IV [facility] Last Admin: 07/18/17 10:43 Dose: 120 mls/hr Levothyroxine Sodium (Synthroid -) 88 mcg PO AM [facility] Last Admin: 07/18/17 06:32 Dose: 88 mcg Loratadine (Claritin -) 10 mg PO DAILY [facility] Last Admin: 07/18/17 10:59 Dose: 10 mg Memantine (Namenda -) 10 mg PO BID [facility] Last Admin: 07/18/17 10:59 Dose: 10 mg Methylprednisolone Sodium Succinate (Solu-Medrol -) 60 mg IVPUSH TID [facility] Last Admin: 07/18/17 06:32 Dose: 60 mg Non-Formulary Medication (Olopatadine Hcl [Pataday]) 2.5 ml OP DAILY [facility] Oxybutynin Chloride (Ditropan -) 5 mg PO DAILY [facility] Last Admin: 07/18/17 10:59 Dose: 5 mg Pantoprazole Sodium (Protonix -) 40 mg PO DAILY [facility] Last Admin: 07/18/17 10:59 Dose: 40 mg Polyethylene Glycol (Miralax (For Daily Use) -) 17 gm PO DAILY [facility] Last Admin: 07/18/17 10:59 Dose: 17 gm Rivaroxaban (Xarelto -) 20 mg PO DAILY [facility] Last Admin: 07/18/17 10:58 Dose: 20 mg Senna/Docusate Sodium (Pericolace -) 2 tablet PO HS [facility] Last Admin: 07/17/17 21:38 Dose: 2 tablet - Objective Vital Signs: Vital Signs Temperature 97.9 F 07/18/17 09:00 Pulse Rate 85 07/18/17 09:00 Respiratory Rate 22 07/18/17 09:00 Blood Pressure 142/85 07/18/17 09:00 O2 Sat by Pulse Oximetry (%) 97 07/18/17 10:00 Constitutional: Yes: Well Nourished, Calm Eyes: Yes: WNL HENT: Yes: WNL Neck: Yes: WNL Cardiovascular: Yes: Regular Rate and Rhythm, S1, S2 Respiratory: Yes: Rhonchi (bilateral rhonchi) Gastrointestinal: Yes: Normal Bowel Sounds, Soft Extremities: Yes: WNL Edema: No Labs: CBC, BMP 07/18/17 06:10 07/18/17 06:10 INR, PTT INR 1.04 (0.82-1.09) 07/16/17 01:35 Assessment/Plan Problem List - Problems (1) Immunocompromised patient Code(s): D84.9 - IMMUNODEFICIENCY, UNSPECIFIED (2) Pneumonia Code(s): J18.9 - PNEUMONIA, UNSPECIFIED ORGANISM (3) COPD with acute exacerbation Code(s): J44.1 - CHRONIC OBSTRUCTIVE PULMONARY DISEASE W (ACUTE) EXACERBATION (5) Acute and chronic respiratory failure with hypoxia Code(s): J96.21 - ACUTE AND CHRONIC RESPIRATORY FAILURE WITH HYPOXIA (6) Dementia Code(s): F03.90 - UNSPECIFIED DEMENTIA WITHOUT BEHAVIORAL DISTURBANCE Qualifiers: Dementia type: unspecified type Dementia behavioral disturbance: without behavioral disturbance Qualified Code(s): F03.90 - Unspecified dementia without behavioral disturbance Assessment/Plan Acute on Chronic Hypoxic Respiratory Failure Pneumonia Acute COPD Exacerbation Churg Eugenie Syndrome on Cellcept h/o DVT HTN Hyperlipidemia Depression Dementia - IV antibiotics per ID - O2 to keep Spo2 >90% - inhaled bronchodilators - medrol - aspiration precautions - anticoagulation DR HORN
[2017-07-18] MEDS: BUDESONIDE/FORMETEROL FUMARATE 80/4.5 mcg INHALER IH SCH ×2 (14:48→22:12)
--- NOTE | 2017-07-18 19:26 | PN ---
Teaching Attending Note Name of Resident: Chidi Maguire ATTENDING PHYSICIAN STATEMENT I saw and evaluated the patient. I reviewed the resident's note and discussed the case with the resident. I agree with the resident's findings and plan as documented. 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 She was found to have severe sepsis 1- Severe sepsis: 2/2 PNA. improved now on venti mask - cont Vanco, meropenem and azithro - follow blood cx. 2- Sinus tachy: likely response to sepsis - Cont cardizem - cont IVF but decrease rate - flat trop 3- Acute hypoxic resp failure : due to PNA vs worsening Shurg Eugenie . - cont ABx - hold mycophenolate due to infection . d/w pulm - cont steroids IV ( chroniclaly on 15 mg of prednisone ) - cont NEbs. 4- Donnell: improved . decrease IVF . elevated BUN is due to steroids 5- h/o DVT: cont xarelto 6- Dementia :cont meds DNR/DNI
[2017-07-18] MEDS: DOCUSATE SODIUM 100 MG CAPSULE (FP) PO SCH (22:11)
[2017-07-18] MEDS: DONEPEZIL HCL 10 MG TABLET (FP) PO SCH (22:11)
[2017-07-18] MEDS: SENNOSIDES/DOCUSATE COMBO (SENNA PLUS) TABLET (UD) PO SCH (22:12)
[2017-07-18] MEDS: ATORVASTATIN CA 10 MG TABLET (FP) PO SCH (22:12)
[2017-07-19] MEDS ORDERED: PT OWN MED DRAWER 7, Y5N ONE ×6 (01:22→18:01)
[2017-07-19] MEDS: MEROPENEM 500 MG PUSH 500 MG/10 ML DISP.SYRIN IVPUSH SCH ×3 (01:39→17:27)
--- NOTE | 2017-07-19 05:33 | PN ---
Physical Exam: SUBJECTIVE: Patient seen and examined at bedside. breathing is better, refuse bipap over night, saturating 95% on 4 L, mental status on her base line. denies any fever, chills, N/V/D/C. denies any chest pain OBJECTIVE: Vital Signs Period Temp Pulse Resp BP Sys/Bahena Pulse Ox Last 24 Hr 97.8 F-98.5 F 82-85 18-22 113-142/65-85 97 GENERAL: The patient is awake, alert, AAO X2 (person and place ), inno acute distress HEAD: Normal with no signs of trauma. EYES: PERRL, extraocular movements intact, sclera anicteric, conjunctiva clear. No ptosis. ENT: Ears normal, nares patent, oropharynx clear without exudates, moist mucous membranes. NECK: supple. LUNGS: coarse breath sounds , no crackles, no accessory muscle use. HEART: sinus tachy, S1, S2 without murmur, rub or gallop. ABDOMEN: Soft, nontender, nondistended, normoactive bowel sounds, no guarding, no rebound, EXTREMITIES: 2+ pulses, warm, well-perfused, no edema. some echymoses on the arms B/L NEUROLOGICAL: No focal deficit . Normal speech, gait not observed. PSYCH: Normal mood, normal affect. SKIN: Warm, dry, no rashes or lesions noted Laboratory Results - last 24 hr 07/18/17 07/18/17 06:10 06:10 WBC 13.2 H D RBC 3.34 L Hgb 8.4 L Hct 28.7 L MCV 85.8 MCH 25.2 L MCHC 29.3 L RDW 19.1 H Plt Count 223 MPV 8.9 Neutrophils % 93.2 H Lymphocytes % 3.9 L Monocytes % 2.7 L Eosinophils % 0.0 Basophils % 0.2 Sodium 145 Potassium 3.8 Chloride 108 H Carbon Dioxide 28 Anion Gap 9 BUN 30 H Creatinine 0.7 Random Glucose 113 H Calcium 9.2 Active Medications Generic Name Dose Route Start Last Admin Trade Name Freq PRN Reason Stop Dose Admin Acetaminophen 650 mg 07/16/17 06:11 Tylenol - PO QID PRN pain Albuterol Sulfate 1 amp 07/16/17 05:50 07/18/17 08:04 Ventolin 0.083% Nebulizer Soln - NEB 1 amp Q4H PRN Administration SHORT OF BREATH/WHEEZING Albuterol/Ipratropium 1 amp 07/19/17 08:00 Duoneb - NEB RQID [facility] Aspirin 81 mg 07/16/17 10:00 07/18/17 10:58 Asa - PO 81 mg DAILY [facility] Administration Atorvastatin Calcium 10 mg 07/16/17 22:00 07/18/17 22:12 Lipitor - PO 10 mg HS [facility] Administration Budesonide/Formoterol Fumarate 1 puff 07/16/17 10:00 07/18/17 22:12 Symbicort 80/4.5mcg - IH 1 puff BID [facility] Administration Calcium Carbonate/Cholecalciferol 1 tab 07/16/17 10:00 07/18/17 22:12 Os-Juan 500+D - PO 1 tab BID [facility] Administration Diltiazem HCl 240 mg 07/17/17 10:00 07/18/17 10:58 Cardizem Cd - PO 240 mg DAILY [facility] Administration Docusate Sodium 200 mg 07/16/17 22:00 07/18/17 22:11 Colace - PO 200 mg HS [facility] Administration Donepezil HCl 10 mg 07/16/17 22:00 07/18/17 22:11 Aricept - PO 10 mg HS [facility] Administration Escitalopram Oxalate 10 mg 07/16/17 10:00 07/18/17 10:59 Lexapro - PO 10 mg DAILY [facility] Administration Ferrous Sulfate 325 mg 07/16/17 10:00 07/18/17 10:59 Feosol - PO 325 mg DAILY [facility] Administration Gabapentin 300 mg 07/16/17 10:00 07/18/17 10:59 Neurontin - PO 300 mg DAILY [facility] Administration Guaifenesin 10 ml 07/16/17 06:30 07/18/17 22:12 Robitussin - PO 10 ml TID [facility] Administration Azithromycin 500 mg/ Dextrose 250 mls @ 250 mls/hr 07/16/17 10:00 07/18/17 10 :40 IVPB 250 mls/hr DAILY [facility] Administration Vancomycin HCl 1,000 mg/ 250 mls @ 250 mls/hr 07/18/17 10:00 07/18/17 10:40 Dextrose IVPB 250 mls/hr DAILY [facility] Administration Protocol Meropenem 500 mg in 10 mls @ 120 mls/hr 07/17/17 10:30 07/19/17 01:39 Merrem (Restricted To Id) - IVPUSH 120 mls/hr Q8H-IV [facility] Administration Sodium Chloride 1,000 mls @ 50 mls/hr 07/18/17 19:45 07/18/17 22:10 Normal Saline - IV 50 mls/hr ASDIR [facility] Administration Levothyroxine Sodium 88 mcg 07/16/17 07:00 07/18/17 06:32 Synthroid - PO 88 mcg AM [facility] Administration Loratadine 10 mg 07/16/17 10:00 07/18/17 10:59 Claritin - PO 10 mg DAILY [facility] Administration Memantine 10 mg 07/16/17 10:00 07/18/17 22:12 Namenda - PO 10 mg BID [facility] Administration Methylprednisolone Sodium Succinate 60 mg 07/17/17 15:15 07/18/17 22:12 Solu-Medrol - IVPUSH 60 mg TID [facility] Administration Non-Formulary Medication 2.5 ml 07/16/17 10:00 Olopatadine Hcl [Pataday] OP DAILY [facility] Oxybutynin Chloride 5 mg 07/16/17 10:00 07/18/17 10:59 Ditropan - PO 5 mg DAILY [facility] Administration Pantoprazole Sodium 40 mg 07/16/17 10:00 07/18/17 10:59 Protonix - PO 40 mg DAILY [facility] Administration Polyethylene Glycol 17 gm 07/16/17 10:00 07/18/17 10:59 Miralax (For Daily Use) - PO 17 gm DAILY [facility] Administration Rivaroxaban 20 mg 07/16/17 10:00 07/18/17 10:58 Xarelto - PO 20 mg DAILY [facility] Administration Senna/Docusate Sodium 2 tablet 07/16/17 22:00 07/18/17 22:12 Pericolace - PO 2 tablet HS [facility] Administration CBC, BMP 07/19/17 08:45 07/19/17 08:45 ASSESSMENT/PLAN: 87 y/o lady with h/o CAD, COPD on home O2 and prednisone, Alzheimer's dementia , HTN, HLD, GERD, hypothyroidism, 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 She was found to have severe sepsis Severe sepsis likely 2/2 PNA - Lactic acid normalized - Likely 2/2 PNA - Cont. IVF - f/u blood and sputum cultures and respiratory viral panel - Vanco troph 7.893 -d/c vancomycin (3 days received ) -day #4 antibiotics meropenem/zithromax -d/c zithromax in am after 5th dose-can give po as IV access is a problem Acute on chronic hypoxic respiratory failure - In the setting of churg eugenie syndrome - Cont. O2 via BiPAP > 90% PRN uring the day and HS - Duoneb QID and ventolin Q4H PRN and symbicort - taper solumedrol to 40mg TID Sinus Tachycardia - Likely 2/2 sepsis and acute respiratory failure - Cont. 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 to hold Mycophenolate Normocytic Anemia - Baseline hgb around 8.0 - Continue ferrous sulfate h/o CAD - Cont. ASA 81mg daily Alzheimer's Dementia - Cont. Donepezil 10mg daily and Namenda 10mg daily HTN - Cont. Cardizem 240 daily HLD - Continue Lipitor 10mg daily Hypothyroidism - Cont. Synthroid 75mcg Overactive Bladder - Con. Oxybutynin 5mg daily Non-Hodgkins Lymphoma - Mycophenolate held - Outpatient followup Anxiety/Depression - Cont. Xanax 0.25mg TID and Lexapro 10mg daily Constipation - Continue senna, colace, and miralax FEN - IV NS @ 50 mls/hr - Electrolytes wnl - advanced to low sodium diet Prophylaxis - DVT: Already on Xarelto Code Status - DNR/DNI-confirmed from [place] papers Disposition - Admit to med-surg Visit type - Emergency Visit Emergency Visit: Yes ED Registration Date: 07/16/17 Care time: The patient presented to the Emergency Department on the above date and was hospitalized for further evaluation of their emergent condition. - New Patient This patient is new to me today: No - Critical Care Critical Care patient: No - Discharge Referral Referred to [facility] Med P.C.: No
[2017-07-19] MEDS: methylPREDNISolone NA SUCC 125 MG/2 ML VIAL IVPUSH SCH ×3 (06:54→21:41)
[2017-07-19] MEDS: guaiFENesin 200 MG/10 ML 10 ML UNIT-DOSE CUPS PO SCH ×3 (06:55→21:42)
[2017-07-19] MEDS: LEVOTHYROXINE NA 88 MCG TABLET (FP) PO SCH (06:55)
[2017-07-19] MEDS: ALBUTEROL SO4 2.5/IPRATROPIUM 0.5 INH SOL 3 ML VIAL.NEB. NEB SCH ×3 (08:55→21:15)
[2017-07-19 09:19] LABS: BASO % 0.4 % (0-2.0); HEMATOCRIT 28.5 % (32.4-45.2); HEMOGLOBIN 8.5 GM/dL (10.7-15.3); LYMPH % 5.9 % (8-40); MCH 25.4 pg (25.7-33.7); MCHC 29.9 g/dl (32.0-36.0); MEAN CELL VOLUME 84.9 fl (80-96); MONO % 4.2 % (3.8-10.2); NEUT % 89.5 % (42.8-82.8); PLATELET COUNT 218 K/MM3 (134-434); RBC 3.36 M/mm3 (3.60-5.2); RDW 18.7 % (11.6-15.6); WHITE BLOOD COUNT 10.6 K/mm3 (4.0-10.0)
[2017-07-19] MEDS: LORATADINE 10 MG TABLET PO SCH (09:35)
[2017-07-19] MEDS: GABAPENTIN 300 MG CAPSULE (FP) PO SCH (09:35)
[2017-07-19] MEDS: OXYBUTYNIN CHLORIDE 5 MG TABLET PO SCH (09:35)
[2017-07-19] MEDS: RIVAROXABAN 20 MG TABLET PO SCH (09:35)
[2017-07-19] MEDS: ASPIRIN 81 MG CHEWABLE TABLETS PO SCH (09:35)
[2017-07-19] MEDS: MEMANTINE HCL 10 MG TABLET (FP) PO SCH ×2 (09:35→21:40)
[2017-07-19] MEDS: CALCIUM 500MG/VIT-D 200 UNITS COMBO TABLET (FP) PO SCH ×2 (09:35→21:40)
[2017-07-19] MEDS: FERROUS SO4 325 MG TABLET (FP) PO SCH (09:35)
[2017-07-19] MEDS: ESCITALOPRAM OXALATE 10 MG TABLET (FP) PO SCH (09:36)
[2017-07-19] MEDS: POLYETHYLENE GLYCOL 3350 119 GM BTL PO SCH (09:36)
[2017-07-19] MEDS: BUDESONIDE/FORMETEROL FUMARATE 80/4.5 mcg INHALER IH SCH ×2 (09:37→21:41)
[2017-07-19] MEDS: PANTOPRAZOLE 40 MG TABLET (FP) PO SCH (09:38)
[2017-07-19 09:47] LABS: ALBUMIN 2.6 g/dl (3.4-5.0); ANION GAP 9 (8-16); BLOOD UREA NITROGEN 29 mg/dL (7-18); CALCIUM 8.5 mg/dL (8.5-10.1); CHLORIDE 109 mmol/L (98-107); CO2 28 mmol/L (21-32); GLUCOSE,RANDOM 124 mg/dL (74-106); POTASSIUM 3.5 mmol/L (3.5-5.1); SODIUM 146 mmol/L (136-145)
[2017-07-19] MEDS: AZITHROMYCIN IVPB 500 MG in DEXTROSE 5%-WATER - 250 ML IVPB SCH (09:47)
[2017-07-19 09:52] LABS: ALK PHOS 53 U/L (45-117); BILIRUBIN,TOTAL 0.3 mg/dL (0.2-1.0); CREATININE 0.7 mg/dL (0.55-1.02); SGOT/AST 23 U/L (15-37); SGPT/ALT 18 U/L (12-78); TOT PROT 6.2 g/dl (6.4-8.2)
[2017-07-19] MEDS: VANCOMYCIN 1,000 MG in DEXTROSE 5%-WATER - 250 ML IVPB SCH (12:12)
--- NOTE | 2017-07-19 15:05 | PN ---
Progress Note, Physician History of Present Illness: pulmonary alert,confused ,-resp distress - Current Medication List Current Medications: Active Medications Acetaminophen (Tylenol -) 650 mg PO QID PRN PRN Reason: pain Albuterol Sulfate (Ventolin 0.083% Nebulizer Soln -) 1 amp NEB Q4H PRN PRN Reason: SHORT OF BREATH/WHEEZING Last Admin: 07/18/17 08:04 Dose: 1 amp Albuterol/Ipratropium (Duoneb -) 1 amp NEB RQID [facility] Aspirin (Asa -) 81 mg PO DAILY [facility] Last Admin: 07/19/17 09:35 Dose: 81 mg Atorvastatin Calcium (Lipitor -) 10 mg PO [facility] Last Admin: 07/18/17 22:12 Dose: 10 mg Budesonide/Formoterol Fumarate (Symbicort 80/4.5mcg -) 1 puff IH BID [facility] Last Admin: 07/19/17 09:37 Dose: 1 puff Calcium Carbonate/Cholecalciferol (Os-Juan 500+D -) 1 tab PO BID [facility] Last Admin: 07/19/17 09:35 Dose: 1 tab Diltiazem HCl (Cardizem Cd -) 240 mg PO DAILY [facility] Last Admin: 07/19/17 09:36 Dose: 240 mg Docusate Sodium (Colace -) 200 mg PO [facility] Last Admin: 07/18/17 22:11 Dose: 200 mg Donepezil HCl (Aricept -) 10 mg PO HS [facility] Last Admin: 07/18/17 22:11 Dose: 10 mg Escitalopram Oxalate (Lexapro -) 10 mg PO DAILY [facility] Last Admin: 07/19/17 09:36 Dose: 10 mg Ferrous Sulfate (Feosol -) 325 mg PO DAILY [facility] Last Admin: 07/19/17 09:35 Dose: 325 mg Gabapentin (Neurontin -) 300 mg PO DAILY [facility] Last Admin: 07/19/17 09:35 Dose: 300 mg Guaifenesin (Robitussin -) 10 ml PO TID [facility] Last Admin: 07/19/17 14:50 Dose: 10 ml Azithromycin 500 mg/ Dextrose 250 mls @ 250 mls/hr IVPB DAILY [facility] Last Admin: 07/19/17 09:47 Dose: 250 mls/hr Vancomycin HCl 1,000 mg/ (Dextrose) 250 mls @ 250 mls/hr IVPB DAILY [facility] PRN Reason: Protocol Last Admin: 07/19/17 12:12 Dose: 250 mls/hr Meropenem (Merrem (Restricted To Id) -) 500 mg in 10 mls @ 120 mls/hr IVPUSH Q8H-IV [facility] Last Admin: 07/19/17 09:36 Dose: 120 mls/hr Sodium Chloride (Normal Saline -) 1,000 mls @ 50 mls/hr IV ASDIR [facility] Last Admin: 07/18/17 22:10 Dose: 50 mls/hr Levothyroxine Sodium (Synthroid -) 88 mcg PO AM [facility] Last Admin: 07/19/17 06:55 Dose: 88 mcg Loratadine (Claritin -) 10 mg PO DAILY [facility] Last Admin: 07/19/17 09:35 Dose: 10 mg Memantine (Namenda -) 10 mg PO BID [facility] Last Admin: 07/19/17 09:35 Dose: 10 mg Methylprednisolone Sodium Succinate (Solu-Medrol -) 60 mg IVPUSH TID [facility] Last Admin: 07/19/17 14:51 Dose: 60 mg Oxybutynin Chloride (Ditropan -) 5 mg PO DAILY [facility] Last Admin: 07/19/17 09:35 Dose: 5 mg Pantoprazole Sodium (Protonix -) 40 mg PO DAILY [facility] Last Admin: 07/19/17 09:38 Dose: 40 mg Polyethylene Glycol (Miralax (For Daily Use) -) 17 gm PO DAILY [facility] Last Admin: 07/19/17 09:36 Dose: 17 gm Rivaroxaban (Xarelto -) 20 mg PO DAILY [facility] Last Admin: 07/19/17 09:35 Dose: 20 mg Senna/Docusate Sodium (Pericolace -) 2 tablet PO HS [facility] Last Admin: 07/18/17 22:12 Dose: 2 tablet - Objective Vital Signs: Vital Signs Temperature 98.9 F 07/19/17 10:00 Pulse Rate 87 07/19/17 10:00 Respiratory Rate 20 07/19/17 10:00 Blood Pressure 122/88 07/19/17 10:00 O2 Sat by Pulse Oximetry (%) 95 07/19/17 09:00 Constitutional: Yes: Well Nourished, Calm Eyes: Yes: WNL HENT: Yes: WNL Neck: Yes: WNL Cardiovascular: Yes: Regular Rate and Rhythm, S1, S2 Respiratory: Yes: Rhonchi (scattered becky rhonchi) Gastrointestinal: Yes: Normal Bowel Sounds, Soft Extremities: Yes: WNL Edema: No Labs: CBC, BMP 07/19/17 08:45 07/19/17 08:45 INR, PTT INR 1.04 (0.82-1.09) 07/16/17 01:35 Assessment/Plan Problem List - Problems (1) Immunocompromised patient Code(s): D84.9 - IMMUNODEFICIENCY, UNSPECIFIED (2) Pneumonia Code(s): J18.9 - PNEUMONIA, UNSPECIFIED ORGANISM (3) COPD with acute exacerbation Code(s): J44.1 - CHRONIC OBSTRUCTIVE PULMONARY DISEASE W (ACUTE) EXACERBATION (5) Acute and chronic respiratory failure with hypoxia Code(s): J96.21 - ACUTE AND CHRONIC RESPIRATORY FAILURE WITH HYPOXIA (6) Dementia Code(s): F03.90 - UNSPECIFIED DEMENTIA WITHOUT BEHAVIORAL DISTURBANCE Qualifiers: Dementia type: unspecified type Dementia behavioral disturbance: without behavioral disturbance Qualified Code(s): F03.90 - Unspecified dementia without behavioral disturbance Assessment/Plan Acute on Chronic Hypoxic Respiratory Failure Pneumonia Acute COPD Exacerbation 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
--- NOTE | 2017-07-19 15:24 | EKG ---
Test Reason : Blood Pressure : / mmHG Vent. Rate : 141 BPM Atrial Rate : 141 BPM P-R Int : 166 ms QRS Dur : 100 ms QT Int : 248 ms P-R-T Axes : 071 052 256 degrees QTc Int : 379 ms SINUS TACHYCARDIA POSSIBLE LEFT ATRIAL ENLARGEMENT MARKED ST ABNORMALITY, POSSIBLE INFERIOR SUBENDOCARDIAL INJURY ABNORMAL ECG WHEN COMPARED WITH ECG OF 16-JUL-2017 00:30, ST NOW DEPRESSED IN LATERAL LEADS T WAVE INVERSION MORE EVIDENT IN INFERIOR LEADS T WAVE INVERSION NOW EVIDENT IN LATERAL LEADS Confirmed by BRAYAN SHIRLEY, SIS ([id number]) on 07/19/2017 3:23:29 PM Referred By: Confirmed By:SIS SCHMIDT MD
--- NOTE | 2017-07-19 16:06 | PN ---
Progress Note (short form) - Note Progress Note: clinically improved still with moist cough Vital Signs Period Temp Pulse Resp BP Sys/Bahena Pulse Ox Last 24 Hr 97.4 F-98.9 F 81-89 20-24 122-149/74-88 95-95 cor-rrr lungs bilateral rhonchi abd soft,nt ext trace edema CBC, BMP 07/19/17 08:45 07/19/17 08:45 Microbiology 07/18/17 20:30 Urine For Antigen Detection Legionella Antigen - Final 07/18/17 20:30 Urine For Antigen Detection Streptococcus pneumoniae Antigen (M - Final 07/16/17 01:35 Blood - Peripheral Venous Blood Culture - Preliminary NO GROWTH OBTAINED AFTER 72 HOURS, INCUBATION TO CONTINUE FOR 2 DAYS. 07/16/17 01:36 Blood - Peripheral Venous Blood Culture - Preliminary NO GROWTH OBTAINED AFTER 72 HOURS, INCUBATION TO CONTINUE FOR 2 DAYS. 07/18/17 12:10 Nasopharyngeal Swab Respiratory Virus (PCR) - Preliminary 07/16/17 08:18 Urine - Urine Montiel Urine Culture - Final 07/17/17 13:35 Nasopharyngeal Swab Respiratory Syncytial Virus Ag - Final 07/17/17 13:50 Nasopharyngeal Swab Influenza Types A,B Antigen (NATHAN) - Final 07/17/17 13:50 Nasopharyngeal Swab - Final cxray appears unchanged a/p sepsis fever/hypoxia possible HCAP/immunocompromised host cultures have been sent influenza and rsv antigen negative legionella urinary antigennegative d/c vancomycin day #4 antibiotics meropenem/zithromax d/c zithromax in am after 5th dose-can give po as IV access is a problem leukocytosis-infection/steroids- improved Problem List - Problems (1) Sepsis Code(s): A41.9 - SEPSIS, UNSPECIFIED ORGANISM (2) Pneumonia Code(s): J18.9 - PNEUMONIA, UNSPECIFIED ORGANISM (3) Immunocompromised patient Code(s): D84.9 - IMMUNODEFICIENCY, UNSPECIFIED
--- NOTE | 2017-07-19 18:41 | PN ---
Teaching Attending Note Name of Resident: Chidi Maguire ATTENDING PHYSICIAN STATEMENT I saw and evaluated the patient. I reviewed the resident's note and discussed the case with the resident. I agree with the resident's findings and plan as documented. SUBJECTIVE: Patient is lying in bed with no acute distress, on distress, positive for severe dementia OBJECTIVE: Vital Signs Temperature 97.9 F 07/19/17 14:30 Pulse Rate 87 07/19/17 14:30 Respiratory Rate 24 07/19/17 14:30 Blood Pressure 148/84 07/19/17 14:30 O2 Sat by Pulse Oximetry (%) 95 07/19/17 09:00 CBCD WBC 10.6 K/mm3 (4.0-10.0) H 07/19/17 08:45 RBC 3.36 M/mm3 (3.60-5.2) L 07/19/17 08:45 Hgb 8.5 GM/dL (10.7-15.3) L 07/19/17 08:45 Hct 28.5 % (32.4-45.2) L 07/19/17 08:45 MCV 84.9 fl (80-96) 07/19/17 08:45 MCHC 29.9 g/dl (32.0-36.0) L 07/19/17 08:45 RDW 18.7 % (11.6-15.6) H 07/19/17 08:45 Plt Count 218 K/MM3 (134-434) 07/19/17 08:45 MPV 9.0 fl (7.5-11.1) 07/19/17 08:45 CMP Sodium 146 mmol/L (136-145) H 07/19/17 08:45 Potassium 3.5 mmol/L (3.5-5.1) 07/19/17 08:45 Chloride 109 mmol/L (98-107) H 07/19/17 08:45 Carbon Dioxide 28 mmol/L (21-32) 07/19/17 08:45 Anion Gap 9 (8-16) 07/19/17 08:45 BUN 29 mg/dL (7-18) H 07/19/17 08:45 Creatinine 0.7 mg/dL (0.55-1.02) 07/19/17 08:45 Creat Clearance w eGFR > 60 (>60) 07/19/17 08:45 Random Glucose 124 mg/dL (74-106) H 07/19/17 08:45 Calcium 8.5 mg/dL (8.5-10.1) 07/19/17 08:45 Total Bilirubin 0.3 mg/dL (0.2-1.0) D 07/19/17 08:45 AST 23 U/L (15-37) 07/19/17 08:45 ALT 18 U/L (12-78) 07/19/17 08:45 Alkaline Phosphatase 53 U/L (45-117) D 07/19/17 08:45 Total Protein 6.2 g/dl (6.4-8.2) L 07/19/17 08:45 Albumin 2.6 g/dl (3.4-5.0) L D 07/19/17 08:45 CARDIAC ENZYMES Creatine Kinase 60 IU/L (26-192) 07/16/17 06:05 Troponin I < 0.02 ng/ml (0.00-0.05) 07/16/17 06:05 Current Medications Generic Name Dose Route Start Last Admin Trade Name Freq PRN Reason Stop Dose Admin Acetaminophen 650 mg 07/16/17 06:11 Tylenol - PO QID PRN pain Albuterol Sulfate 1 amp 07/16/17 05:50 07/18/17 08:04 Ventolin 0.083% Nebulizer Soln - NEB 1 amp Q4H PRN Administration SHORT OF BREATH/WHEEZING Albuterol/Ipratropium 1 amp 07/19/17 08:00 07/19/17 12:50 Duoneb - NEB 1 amp RQID [facility] Administration Aspirin 81 mg 07/16/17 10:00 07/19/17 09:35 Asa - PO 81 mg DAILY [facility] Administration Atorvastatin Calcium 10 mg 07/16/17 22:00 07/18/17 22:12 Lipitor - PO 10 mg HS [facility] Administration Budesonide/Formoterol Fumarate 1 puff 07/16/17 10:00 07/19/17 09:37 Symbicort 80/4.5mcg - IH 1 puff BID [facility] Administration Calcium Carbonate/Cholecalciferol 1 tab 07/16/17 10:00 07/19/17 09:35 Os-Juan 500+D - PO 1 tab BID [facility] Administration Diltiazem HCl 240 mg 07/17/17 10:00 07/19/17 09:36 Cardizem Cd - PO 240 mg DAILY [facility] Administration Docusate Sodium 200 mg 07/16/17 22:00 07/18/17 22:11 Colace - PO 200 mg HS [facility] Administration Donepezil HCl 10 mg 07/16/17 22:00 07/18/17 22:11 Aricept - PO 10 mg HS [facility] Administration Escitalopram Oxalate 10 mg 07/16/17 10:00 07/19/17 09:36 Lexapro - PO 10 mg DAILY [facility] Administration Ferrous Sulfate 325 mg 07/16/17 10:00 07/19/17 09:35 Feosol - PO 325 mg DAILY [facility] Administration Gabapentin 300 mg 07/16/17 10:00 07/19/17 09:35 Neurontin - PO 300 mg DAILY [facility] Administration Guaifenesin 10 ml 07/16/17 06:30 07/19/17 14:50 Robitussin - PO 10 ml TID [facility] Administration Meropenem 500 mg in 10 mls @ 120 mls/hr 07/17/17 10:30 07/19/17 17:27 Merrem (Restricted To Id) - IVPUSH 120 mls/hr Q8H-IV [facility] Administration Sodium Chloride 1,000 mls @ 50 mls/hr 07/18/17 19:45 07/18/17 22:10 Normal Saline - IV 50 mls/hr ASDIR [facility] Administration Levothyroxine Sodium 88 mcg 07/16/17 07:00 07/19/17 06:55 Synthroid - PO 88 mcg AM [facility] Administration Loratadine 10 mg 07/16/17 10:00 07/19/17 09:35 Claritin - PO 10 mg DAILY [facility] Administration Memantine 10 mg 07/16/17 10:00 07/19/17 09:35 Namenda - PO 10 mg BID [facility] Administration Methylprednisolone Sodium Succinate 40 mg 07/19/17 15:05 Solu-Medrol - IVPUSH TID [facility] Oxybutynin Chloride 5 mg 07/16/17 10:00 07/19/17 09:35 Ditropan - PO 5 mg DAILY [facility] Administration Pantoprazole Sodium 40 mg 07/16/17 10:00 07/19/17 09:38 Protonix - PO 40 mg DAILY [facility] Administration Polyethylene Glycol 17 gm 07/16/17 10:00 07/19/17 09:36 Miralax (For Daily Use) - PO 17 gm DAILY [facility] Administration Rivaroxaban 20 mg 07/16/17 10:00 07/19/17 09:35 Xarelto - PO 20 mg DAILY [facility] Administration Senna/Docusate Sodium 2 tablet 07/16/17 22:00 07/18/17 22:12 Pericolace - PO 2 tablet HS [facility] Administration Home Medications Medication Instructions Recorded Aa/Hydrolyzed Collagen, Whey [Lps 960 ml PO DAILY 06/09/17 Neutral Flavor Liquid] Acetaminophen [Mapap] 650 mg PO QID PRN 06/09/17 Albuterol Sulfate [Proventil HFA 1 - 2 inh PO QID 06/09/17 Inhaler -] Aspirin [ASA -] 81 mg PO DAILY 06/09/17 Atorvastatin Ca [Lipitor] 10 mg PO HS 06/09/17 Budesonide/Formeterol Fumarate 1 inh PO BID 06/09/17 [SYMBICORT 80/4.5mcg -] Calcium Carbonate/Vitamin D3 1 each PO BID 06/09/17 [Oyster Shell 500-Vit D3 200 Tb] Diltiazem Cd [Cardizem Cd -] 240 mg PO DAILY 06/09/17 Docusate Sodium [Colace -] 200 mg PO HS 06/09/17 Donepezil HCl [Aricept] 10 mg PO HS 06/09/17 Escitalopram Oxalate [Lexapro -] 10 mg PO DAILY 06/09/17 Ferrous Sulfate 325 mg PO DAILY 06/09/17 Gabapentin 300 mg PO HS 06/09/17 Gabapentin 600 mg PO HS 06/09/17 Loratadine 10 mg PO DAILY 06/09/17 Memantine HCl [Namenda -] 10 mg PO BID 06/09/17 Mycophenolate Mofetil [Cellcept] 500 mg PO DAILY 06/09/17 Olopatadine HCl [Pataday] 2.5 ml OP DAILY 06/09/17 Oxybutynin Chloride 5 mg PO DAILY 06/09/17 Polyethylene Glycol 3350 [Miralax 17 gm PO DAILY 06/09/17 119 gm Btl -] Rivaroxaban [Xarelto -] 20 mg PO DAILY 06/09/17 Sennosides/Docusate Sodium [Senna 2 each PO HS 06/09/17 Laxative Tablet] Tiotropium [place] [Spiriva] 1 inh PO DAILY 06/09/17 Pantoprazole Sodium [Protonix] 40 mg PO DAILY #30 tablet. 06/14/17 Amoxicillin/Potassium Clav 1 each PO BID 07/16/17 [Augmentin 875-125 Tablet] Clonazepam [Klonopin -] 0.5 mg PO BID 07/16/17 Doxycycline Hyclate 100 mg PO BID 07/16/17 Guaifenesin [Robitussin -] 10 ml PO TID 07/16/17 Ipratropium/Albuterol Sulfate 3 ml IH Q6H PRN 07/16/17 [Iprat-Albut 0.5-3(2.5) mg/3 ml] L. 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 She was found to have severe sepsis # Acute hypoxic resp failure : due to PNA vs worsening Shurg Eugenie on ABx continue - mycophenolate on hold for now due to her infection, as per pulm ; cont steroids IV ( chronicly on 15 mg of prednisone ) , cont NEbs. on IV antibiotic meropenem as per iD # Severe sepsis: due to PNA. continue venti mask, On Vanco, meropenem and azithro , follow blood cx. # Sinus tachy: most likely due to sepsis cont cardizem, on IVF # Donnell: improved . decrease IVF . elevated BUN is due to steroids # h/o DVT: on xarelto continue # Dementia :cont meds DNR/DNI
[2017-07-19] MEDS: SODIUM CHLORIDE 1,000 ML IV SCH ×2 (21:20→23:11)
[2017-07-19] MEDS: DOCUSATE SODIUM 100 MG CAPSULE (FP) PO SCH (21:41)
[2017-07-19] MEDS: ATORVASTATIN CA 10 MG TABLET (FP) PO SCH (21:41)
[2017-07-19] MEDS: SENNOSIDES/DOCUSATE COMBO (SENNA PLUS) TABLET (UD) PO SCH (21:41)
[2017-07-19] MEDS: DONEPEZIL HCL 10 MG TABLET (FP) PO SCH (22:15)
[2017-07-20] MEDS: MEROPENEM 500 MG PUSH 500 MG/10 ML DISP.SYRIN IVPUSH SCH ×2 (01:46→10:58)
--- NOTE | 2017-07-20 05:45 | PN ---
Physical Exam: SUBJECTIVE: Patient seen and examined at bedside, on PIPAP machine over night , PRN through out the day , breathing is better , lungs are more clear but still with some rhonchi. stable to transfer to SNF. OBJECTIVE: Vital Signs Period Temp Pulse Resp BP Sys/Bahena Pulse Ox Last 24 Hr 97.4 F-98.9 F 71-89 20-24 122-149/79-89 94-100 GENERAL: The patient is awake, alert, AAO X2 (person and place ), in no acute distress HEAD: Normal with no signs of trauma. EYES: PERRL, extraocular movements intact, sclera anicteric, conjunctiva clear. No ptosis. ENT: moist mucous membranes. NECK: supple. LUNGS: some rhonchi, no crackles, no accessory muscle use. HEART: sinus tachy, S1, S2 without murmur, rub or gallop. ABDOMEN: Soft, nontender, nondistended, normoactive bowel sounds, no guarding, no rebound, EXTREMITIES: 2+ pulses, warm, well-perfused, no edema. some echymoses on the arms B/L NEUROLOGICAL: No focal deficit . Normal speech, gait not observed. PSYCH: Normal mood, normal affect. SKIN: Warm, dry, no rashes or lesions noted Laboratory Results - last 24 hr 07/19/17 07/19/17 07/19/17 08:45 08:45 10:00 WBC 10.6 H RBC 3.36 L Hgb 8.5 L Hct 28.5 L MCV 84.9 MCH 25.4 L MCHC 29.9 L RDW 18.7 H Plt Count 218 MPV 9.0 Neutrophils % 89.5 H Lymphocytes % 5.9 L D Monocytes % 4.2 Eosinophils % 0.0 Basophils % 0.4 Sodium 146 H Potassium 3.5 Chloride 109 H Carbon Dioxide 28 Anion Gap 9 BUN 29 H Creatinine 0.7 Creat Clearance w eGFR > 60 Random Glucose 124 H Calcium 8.5 Total Bilirubin 0.3 D AST 23 ALT 18 Alkaline Phosphatase 53 D Total Protein 6.2 L Albumin 2.6 L D Vancomycin Pre-Dose 7.893 Active Medications Generic Name Dose Route Start Last Admin Trade Name Freq PRN Reason Stop Dose Admin Acetaminophen 650 mg 07/16/17 06:11 Tylenol - PO QID PRN pain Albuterol Sulfate 1 amp 07/16/17 05:50 07/18/17 08:04 Ventolin 0.083% Nebulizer Soln - NEB 1 amp Q4H PRN Administration SHORT OF BREATH/WHEEZING Albuterol/Ipratropium 1 amp 07/19/17 08:00 07/19/17 21:15 Duoneb - NEB 1 amp RQID [facility] Administration Aspirin 81 mg 07/16/17 10:00 07/19/17 09:35 Asa - PO 81 mg DAILY [facility] Administration Atorvastatin Calcium 10 mg 07/16/17 22:00 07/19/17 21:41 Lipitor - PO 10 mg HS [facility] Administration Budesonide/Formoterol Fumarate 1 puff 07/16/17 10:00 07/19/17 21:41 Symbicort 80/4.5mcg - IH 1 puff BID [facility] Administration Calcium Carbonate/Cholecalciferol 1 tab 07/16/17 10:00 07/19/17 21:40 Os-Juan 500+D - PO 1 tab BID [facility] Administration Diltiazem HCl 240 mg 07/17/17 10:00 07/19/17 09:36 Cardizem Cd - PO 240 mg DAILY [facility] Administration Docusate Sodium 200 mg 07/16/17 22:00 07/19/17 21:41 Colace - PO 200 mg HS [facility] Administration Donepezil HCl 10 mg 07/16/17 22:00 07/19/17 22:15 Aricept - PO 10 mg HS [facility] Administration Escitalopram Oxalate 10 mg 07/16/17 10:00 07/19/17 09:36 Lexapro - PO 10 mg DAILY [facility] Administration Ferrous Sulfate 325 mg 07/16/17 10:00 07/19/17 09:35 Feosol - PO 325 mg DAILY [facility] Administration Gabapentin 300 mg 07/16/17 10:00 07/19/17 09:35 Neurontin - PO 300 mg DAILY [facility] Administration Guaifenesin 10 ml 07/16/17 06:30 07/19/17 21:42 Robitussin - PO 10 ml TID [facility] Administration Meropenem 500 mg in 10 mls @ 120 mls/hr 07/17/17 10:30 07/20/17 01:46 Merrem (Restricted To Id) - IVPUSH 120 mls/hr Q8H-IV [facility] Administration Sodium Chloride 1,000 mls @ 50 mls/hr 07/18/17 19:45 07/19/17 23:11 Normal Saline - IV 50 mls/hr ASDIR [facility] Administration Levothyroxine Sodium 88 mcg 07/16/17 07:00 07/19/17 06:55 Synthroid - PO 88 mcg AM [facility] Administration Loratadine 10 mg 07/16/17 10:00 07/19/17 09:35 Claritin - PO 10 mg DAILY [facility] Administration Memantine 10 mg 07/16/17 10:00 07/19/17 21:40 Namenda - PO 10 mg BID [facility] Administration Methylprednisolone Sodium Succinate 40 mg 07/19/17 15:05 07/19/17 21:41 Solu-Medrol - IVPUSH 40 mg TID [facility] Administration Oxybutynin Chloride 5 mg 07/16/17 10:00 07/19/17 09:35 Ditropan - PO 5 mg DAILY [facility] Administration Pantoprazole Sodium 40 mg 07/16/17 10:00 07/19/17 09:38 Protonix - PO 40 mg DAILY [facility] Administration Polyethylene Glycol 17 gm 07/16/17 10:00 07/19/17 09:36 Miralax (For Daily Use) - PO 17 gm DAILY [facility] Administration Rivaroxaban 20 mg 07/16/17 10:00 07/19/17 09:35 Xarelto - PO 20 mg DAILY [facility] Administration Senna/Docusate Sodium 2 tablet 07/16/17 22:00 07/19/17 21:41 Pericolace - PO 2 tablet HS [facility] Administration CBC, BMP 07/20/17 07:40 ASSESSMENT/PLAN: 87 y/o lady with h/o CAD, COPD on home O2 and prednisone, Alzheimer's dementia , HTN, HLD, GERD, hypothyroidism, 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 She was found to have severe sepsis Severe sepsis likely 2/2 PNA - Lactic acid normalized - Likely 2/2 PNA - Cont. IVF - f/u blood and sputum cultures and respiratory viral panel - Vanco troph 7.893 -d/c vancomycin (3 days received ) -day #4 antibiotics meropenem/zithromax -d/c zithromax in am after 5th dose-can give one more po as IV access is a problem - Dc to SNF with 4 days of Augmentin 725/125 Po BID Acute on chronic hypoxic respiratory failure - In the setting of churg eugenie syndrome - Cont. O2 via BiPAP > 90% PRN uring the day and HS - Duoneb QID and ventolin Q4H PRN and symbicort - taper solumedrol to 40mg TID, will be send to SNF with 20 Po daily Sinus Tachycardia - Likely 2/2 sepsis and acute respiratory failure - Cont. to correct underlying problems - EKG 07/19/17 reviewed h/o Superficial Femoral VT and Left Brachial Vein DVT - Continue Xarelto 20mg daily Churgg Eugenie - taper solumedrol 40mh TIDand then 20 po daily as out patient maintenance - Cont. to hold Mycophenolate Normocytic Anemia - Baseline hgb around 8.0 - Continue ferrous sulfate h/o CAD - Cont. ASA 81mg daily Alzheimer's Dementia - Cont. Donepezil 10mg daily and Namenda 10mg daily HTN - Cont. Cardizem 240 daily HLD - Continue Lipitor 10mg daily Hypothyroidism - Cont. Synthroid 75mcg Overactive Bladder - Con. Oxybutynin 5mg daily Non-Hodgkins Lymphoma - Mycophenolate held - Outpatient followup Anxiety/Depression - Cont. Xanax 0.25mg TID and Lexapro 10mg daily Constipation - Continue senna, colace, and miralax FEN - IV NS @ 50 mls/hr - Electrolytes wnl - advanced to low sodium diet Prophylaxis - DVT: Already on Xarelto Code Status - DNR/DNI-confirmed from [place] papers Disposition - Admit to med-surg - Will be trasnferred to [facility] Visit type - Emergency Visit Emergency Visit: Yes ED Registration Date: 07/16/17 Care time: The patient presented to the Emergency Department on the above date and was hospitalized for further evaluation of their emergent condition. - New Patient This patient is new to me today: No - Critical Care Critical Care patient: No
[2017-07-20] MEDS: methylPREDNISolone NA SUCC 125 MG/2 ML VIAL IVPUSH SCH ×3 (07:05→22:34)
[2017-07-20] MEDS: guaiFENesin 200 MG/10 ML 10 ML UNIT-DOSE CUPS PO SCH ×3 (07:05→22:25)
[2017-07-20] MEDS: LEVOTHYROXINE NA 88 MCG TABLET (FP) PO SCH (07:05)
[2017-07-20] MEDS: ALBUTEROL SO4 2.5/IPRATROPIUM 0.5 INH SOL 3 ML VIAL.NEB. NEB SCH ×4 (08:05→20:00)
[2017-07-20 08:13] LABS: BASO % 0.2 % (0-2.0); HEMATOCRIT 27.9 % (32.4-45.2); HEMOGLOBIN 8.6 GM/dL (10.7-15.3); LYMPH % 9.8 % (8-40); MCH 25.5 pg (25.7-33.7); MCHC 30.7 g/dl (32.0-36.0); MEAN CELL VOLUME 83.1 fl (80-96); MEAN PLT VOLUME 8.8 fl (7.5-11.1); MONO % 7.6 % (3.8-10.2); NEUT % 82.4 % (42.8-82.8); PLATELET COUNT 228 K/MM3 (134-434); RBC 3.35 M/mm3 (3.60-5.2); RDW 18.7 % (11.6-15.6); WHITE BLOOD COUNT 8.5 K/mm3 (4.0-10.0)
[2017-07-20 08:35] LABS: ALBUMIN 2.6 g/dl (3.4-5.0); ANION GAP 6 (8-16); BLOOD UREA NITROGEN 22 mg/dL (7-18); CALCIUM 8.3 mg/dL (8.5-10.1); CHLORIDE 105 mmol/L (98-107); CO2 32 mmol/L (21-32); CREATININE 0.5 mg/dL (0.55-1.02); GLUCOSE,RANDOM 132 mg/dL (74-106); SGOT/AST 19 U/L (15-37); SGPT/ALT 19 U/L (12-78); SODIUM 143 mmol/L (136-145)
[2017-07-20 08:37] LABS: ALK PHOS 50 U/L (45-117); BILIRUBIN,TOTAL 0.4 mg/dL (0.2-1.0); TOT PROT 5.8 g/dl (6.4-8.2)
[2017-07-20] MEDS: BUDESONIDE/FORMETEROL FUMARATE 80/4.5 mcg INHALER IH SCH ×2 (10:58→22:26)
[2017-07-20] MEDS: ESCITALOPRAM OXALATE 10 MG TABLET (FP) PO SCH (11:14)
[2017-07-20] MEDS: PANTOPRAZOLE 40 MG TABLET (FP) PO SCH (11:14)
[2017-07-20] MEDS: MEMANTINE HCL 10 MG TABLET (FP) PO SCH ×2 (11:15→22:24)
[2017-07-20] MEDS: OXYBUTYNIN CHLORIDE 5 MG TABLET PO SCH (11:15)
[2017-07-20] MEDS: CALCIUM 500MG/VIT-D 200 UNITS COMBO TABLET (FP) PO SCH ×2 (11:15→22:24)
[2017-07-20] MEDS: ASPIRIN 81 MG CHEWABLE TABLETS PO SCH (11:16)
[2017-07-20] MEDS: LORATADINE 10 MG TABLET PO SCH (11:16)
[2017-07-20] MEDS: GABAPENTIN 300 MG CAPSULE (FP) PO SCH (11:16)
[2017-07-20] MEDS: FERROUS SO4 325 MG TABLET (FP) PO SCH (11:16)
[2017-07-20] MEDS: POLYETHYLENE GLYCOL 3350 119 GM BTL PO SCH (11:17)
[2017-07-20] MEDS: RIVAROXABAN 20 MG TABLET PO SCH (11:26)
--- NOTE | 2017-07-20 12:43 | PN ---
Progress Note (short form) - Note Progress Note: Resting in NAD No acute events overnight. No CP or SOB. Intake & Output 07/17/17 07/18/17 07/19/17 07/20/17 23:59 23:59 23:59 23:59 Intake Total 0 500 2060 600 Balance 0 500 2060 600 Last Vital Signs Temp Pulse Resp BP Pulse Ox 99.0 F 95 H 20 149/91 100 07/20/17 10:57 07/20/17 10:57 07/20/17 10:57 07/20/17 10:57 07/19/17 21:00 Active Medications Acetaminophen (Tylenol -) 650 mg PO QID PRN PRN Reason: pain Albuterol Sulfate (Ventolin 0.083% Nebulizer Soln -) 1 amp NEB Q4H PRN PRN Reason: SHORT OF BREATH/WHEEZING Last Admin: 07/18/17 08:04 Dose: 1 amp Albuterol/Ipratropium (Duoneb -) 1 amp NEB RQID [facility] Last Admin: 07/20/17 11:20 Dose: 1 amp Aspirin (Asa -) 81 mg PO DAILY [facility] Last Admin: 07/20/17 11:16 Dose: 81 mg Atorvastatin Calcium (Lipitor -) 10 mg PO HS [facility] Last Admin: 07/19/17 21:41 Dose: 10 mg Budesonide/Formoterol Fumarate (Symbicort 80/4.5mcg -) 1 puff IH BID [facility] Last Admin: 07/20/17 10:58 Dose: 1 puff Calcium Carbonate/Cholecalciferol (Os-Juan 500+D -) 1 tab PO BID [facility] Last Admin: 07/20/17 11:15 Dose: 1 tab Diltiazem HCl (Cardizem Cd -) 240 mg PO DAILY [facility] Last Admin: 07/20/17 11:15 Dose: 240 mg Docusate Sodium (Colace -) 200 mg PO HS [facility] Last Admin: 07/19/17 21:41 Dose: 200 mg Donepezil HCl (Aricept -) 10 mg PO HS [facility] Last Admin: 07/19/17 22:15 Dose: 10 mg Escitalopram Oxalate (Lexapro -) 10 mg PO DAILY [facility] Last Admin: 07/20/17 11:14 Dose: 10 mg Ferrous Sulfate (Feosol -) 325 mg PO DAILY [facility] Last Admin: 07/20/17 11:16 Dose: 325 mg Gabapentin (Neurontin -) 300 mg PO DAILY [facility] Last Admin: 07/20/17 11:16 Dose: 300 mg Guaifenesin (Robitussin -) 10 ml PO TID [facility] Last Admin: 07/20/17 07:05 Dose: 10 ml Meropenem (Merrem (Restricted To Id) -) 500 mg in 10 mls @ 120 mls/hr IVPUSH Q8H-IV [facility] Last Admin: 07/20/17 10:58 Dose: 120 mls/hr Sodium Chloride (Normal Saline -) 1,000 mls @ 50 mls/hr IV ASDIR [facility] Last Admin: 07/19/17 23:11 Dose: 50 mls/hr Levothyroxine Sodium (Synthroid -) 88 mcg PO AM [facility] Last Admin: 07/20/17 07:05 Dose: 88 mcg Loratadine (Claritin -) 10 mg PO DAILY [facility] Last Admin: 07/20/17 11:16 Dose: 10 mg Memantine (Namenda -) 10 mg PO BID [facility] Last Admin: 07/20/17 11:15 Dose: 10 mg Methylprednisolone Sodium Succinate (Solu-Medrol -) 40 mg IVPUSH TID [facility] Last Admin: 07/20/17 07:05 Dose: 40 mg Oxybutynin Chloride (Ditropan -) 5 mg PO DAILY [facility] Last Admin: 07/20/17 11:15 Dose: 5 mg Pantoprazole Sodium (Protonix -) 40 mg PO DAILY [facility] Last Admin: 07/20/17 11:14 Dose: 40 mg Polyethylene Glycol (Miralax (For Daily Use) -) 17 gm PO DAILY [facility] Last Admin: 07/20/17 11:17 Dose: 17 gm Rivaroxaban (Xarelto -) 20 mg PO DAILY [facility] Last Admin: 07/20/17 11:26 Dose: 20 mg Senna/Docusate Sodium (Pericolace -) 2 tablet PO HS [facility] Last Admin: 07/19/17 21:41 Dose: 2 tablet Constitutional: Yes: NAD Eyes: Yes: WNL HENT: Yes: WNL Neck: Yes: WNL Cardiovascular: Yes: Regular Rate and Rhythm, S1, S2 Respiratory: Yes: Few scattered Rhonchi, no wheeze Gastrointestinal: Yes: Normal Bowel Sounds, Soft Extremities: Yes: WNL Edema: No Labs: Laboratory Results - last 24 hr 07/20/17 07/20/17 07:40 07:40 WBC 8.5 RBC 3.35 L Hgb 8.6 L Hct 27.9 L MCV 83.1 MCH 25.5 L MCHC 30.7 L RDW 18.7 H Plt Count 228 MPV 8.8 Neutrophils % 82.4 Lymphocytes % 9.8 D Monocytes % 7.6 D Eosinophils % 0.0 Basophils % 0.2 Sodium 143 Potassium 3.0 L Chloride 105 Carbon Dioxide 32 Anion Gap 6 L BUN 22 H Creatinine 0.5 L Creat Clearance w eGFR > 60 Random Glucose 132 H Calcium 8.3 L Total Bilirubin 0.4 D AST 19 ALT 19 Alkaline Phosphatase 50 Total Protein 5.8 L Albumin 2.6 L Assessment/Plan Problem List - Problems (1) Immunocompromised patient Code(s): D84.9 - IMMUNODEFICIENCY, UNSPECIFIED (2) Pneumonia Code(s): J18.9 - PNEUMONIA, UNSPECIFIED ORGANISM (3) COPD with acute exacerbation Code(s): J44.1 - CHRONIC OBSTRUCTIVE PULMONARY DISEASE W (ACUTE) EXACERBATION (5) Acute and chronic respiratory failure with hypoxia Code(s): J96.21 - ACUTE AND CHRONIC RESPIRATORY FAILURE WITH HYPOXIA (6) Dementia Code(s): F03.90 - UNSPECIFIED DEMENTIA WITHOUT BEHAVIORAL DISTURBANCE Qualifiers: Dementia type: unspecified type Dementia behavioral disturbance: without behavioral disturbance Qualified Code(s): F03.90 - Unspecified dementia without behavioral disturbance Assessment/Plan Acute on Chronic Hypoxic Respiratory Failure Pneumonia Acute COPD Exacerbation 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
[2017-07-20] MEDS ORDERED: PT OWN MED DRAWER 7, Y5N ONE ×2 (12:54→19:02)
--- NOTE | 2017-07-20 13:55 | DS ---
Physical Exam: SUBJECTIVE: Patient seen and examined at bedside, on PIPAP machine over night , PRN through out the day , breathing is better , lungs are more clear but still with some rhonchi. stable to transfer to SNF. OBJECTIVE: Vital Signs Period Temp Pulse Resp BP Sys/Bahena Pulse Ox Last 24 Hr 97.9 F-99.0 F 78-95 20-24 145-167/79-91 100 PHYSICAL EXAM GENERAL: The patient is awake, alert, AAO X2 (person and place ), in no acute distress HEAD: Normal with no signs of trauma. EYES: sclera anicteric, conjunctiva clear. ENT: moist mucous membranes. NECK: supple. LUNGS: some rhonchi, no crackles, no accessory muscle use. HEART: sinus tachy, S1, S2 without murmur, rub or gallop. ABDOMEN: Soft, nontender, nondistended, normoactive bowel sounds, no guarding, no rebound, EXTREMITIES: 2+ pulses, warm, well-perfused, no edema. some echymoses on the arms B/L NEUROLOGICAL: No focal deficit . Normal speech, gait not observed. PSYCH: Normal mood, normal affect. SKIN: Warm, dry, no rashes or lesions noted LABS Laboratory Results - last 24 hr 07/20/17 07/20/17 07:40 07:40 WBC 8.5 RBC 3.35 L Hgb 8.6 L Hct 27.9 L MCV 83.1 MCH 25.5 L MCHC 30.7 L RDW 18.7 H Plt Count 228 MPV 8.8 Neutrophils % 82.4 Lymphocytes % 9.8 D Monocytes % 7.6 D Eosinophils % 0.0 Basophils % 0.2 Sodium 143 Potassium 3.0 L Chloride 105 Carbon Dioxide 32 Anion Gap 6 L BUN 22 H Creatinine 0.5 L Creat Clearance w eGFR > 60 Random Glucose 132 H Calcium 8.3 L Total Bilirubin 0.4 D AST 19 ALT 19 Alkaline Phosphatase 50 Total Protein 5.8 L Albumin 2.6 L HOSPITAL COURSE: Date of Admission:07/16/17 Date of Discharge: 07/20/17 87 y/o lady with h/o CAD, COPD on home O2 and prednisone, Alzheimer's dementia , HTN, HLD, GERD, hypothyroidism, 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 She was found to have severe sepsis In term of Severe sepsis likely 2/2 aspiration PNA , Lactic acid normalized , IVF was given , treated with 3days vancomycin, 4 days of Meropenem , an Zithromax , Vanco troph 7.893 will be transferred to SNF with 4 days of Augmentin 725/125 Po BID . 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 ASA 81mg daily *Alzheimer's Dementia cont. Donepezil 10mg daily and Namenda 10mg daily *In term of HTN cont. Cardizem 240 daily *In term of HLD continue Lipitor 10mg daily Hypothyroidism - Cont. Synthroid 75mcg *In term of overactive Bladder Con. Oxybutynin 5mg daily *In term of Non-Hodgkins Lymphoma - Mycophenolate held during admission due to sepsis can continue after discharged , *She can follow up as outpatient *In term of Anxiety/Depression Cont. Xanax 0.25mg TID and Lexapro 10mg daily *In term of Constipation, Continue senna, colace, and miralax *In term of DVT: continue on Xarelto *Code Status - DNR/DNI- *Disposition She will transferred back to SNF Minutes to complete discharge: 40 Discharge Summary Reason For Visit: PNEUMONIA, SHORTNESS OF BREATH Current Active Problems Churg-Eugenie syndrome (Chronic) Immunocompromised patient (Chronic) Condition: Guarded - Instructions Diet, Activity, Other Instructions: You were admitted to the hospital due to sepsis likely from pneumonia. You were treated with antibiotics and steroids. You will need to increase your home steroid dose to 20 mg daily and continue to take augmentin (antibiotics) for 4 more days (twice a day). Please follow up with Dr. Mehta and your primary doctor with 2 weeks. If you experience acute shortness of breath, call 911 or come to the nearest ER. Referrals: Raul Funes [Outside] Kurt Mehta MD [Staff Physician] - 1 Week Disposition: [facility] - Home Medications Comprehensive Discharge Medication List: Ambulatory Orders Aa/Hydrolyzed Collagen, Whey [Lps Neutral Flavor Liquid] 960 ml PO DAILY Acetaminophen [Mapap] 650 mg PO QID PRN 06/09/17 Albuterol Sulfate [Proventil HFA Inhaler -] 1 - 2 inh PO QID 06/09/17 Aspirin [ASA -] 81 mg PO DAILY 06/09/17 Atorvastatin Ca [Lipitor] 10 mg PO HS 06/09/17 Budesonide/Formeterol Fumarate [SYMBICORT 80/4.5mcg -] 1 inh PO BID 06/09/17 Calcium Carbonate/Vitamin D3 [Oyster Shell 500-Vit D3 200 Tb] 1 each PO BID 02/16 Diltiazem Cd [Cardizem Cd -] 240 mg PO DAILY 06/09/17 Docusate Sodium [Colace -] 200 mg PO HS 06/09/17 Donepezil HCl [Aricept] 10 mg PO HS 06/09/17 Escitalopram Oxalate [Lexapro -] 10 mg PO DAILY 06/09/17 Ferrous Sulfate 325 mg PO DAILY 06/09/17 Gabapentin 300 mg PO HS 06/09/17 Gabapentin 600 mg PO HS 06/09/17 Loratadine 10 mg PO DAILY 06/09/17 Memantine HCl [Namenda -] 10 mg PO BID 06/09/17 Mycophenolate Mofetil [Cellcept] 500 mg PO DAILY 06/09/17 Olopatadine HCl [Pataday] 2.5 ml OP DAILY 06/09/17 Oxybutynin Chloride 5 mg PO DAILY 06/09/17 Polyethylene Glycol 3350 [Miralax 119 gm Btl -] 17 gm PO DAILY 06/09/17 Rivaroxaban [Xarelto -] 20 mg PO DAILY 06/09/17 Sennosides/Docusate Sodium [Senna Laxative Tablet] 2 each PO HS 06/09/17 Tiotropium [place] [Spiriva] 1 inh PO DAILY 06/09/17 Pantoprazole Sodium [Protonix] 40 mg PO DAILY #30 tablet. 06/14/17 Clonazepam [Klonopin -] 0.5 mg PO BID 07/16/17 Doxycycline Hyclate 100 mg PO BID 07/16/17 Guaifenesin [Robitussin -] 10 ml PO TID 07/16/17 Ipratropium/Albuterol Sulfate [Iprat-Albut 0.5-3(2.5) mg/3 ml] 3 ml IH Q6H PRN 07/16/17 L. Acidophilus/Pectin, [place] [Acidophilus Capsule] 1 each PO BID 07/16/17 Levothyroxine Sodium [Synthroid] 88 mcg PO AM 07/16/17 Amoxicillin/Potassium Clav [Augmentin 875-125 Tablet] 1 each PO BID #8 tablet Prednisone [Deltasone -] 20 mg PO DAILY #30 tablet 07/20/17 This patient is new to me today: No Emergency Visit: Yes ED Registration Date: 07/16/17 Care time: The patient presented to the Emergency Department on the above date and was hospitalized for further evaluation of their emergent condition. Critical Care patient: No - Discharge Referral Referred to [facility] No
[2017-07-20] MEDS ORDERED: AZITHROMYCIN 250 MG TABLET PO ONE (15:00)
--- NOTE | 2017-07-20 16:28 | PN ---
Progress Note (short form) - Note Progress Note: clinically improved much less cough Vital Signs Period Temp Pulse Resp BP Sys/Bahena Pulse Ox Last 24 Hr 97.9 F-99.0 F 78-95 20-24 130-167/79-91 100 cor-rrr llungs decreased bs at ases abd soft,nt ext no edema CBC, BMP 07/20/17 07:40 07/20/17 07:40 Microbiology 07/16/17 01:35 Blood - Peripheral Venous Blood Culture - Preliminary NO GROWTH OBTAINED AFTER 96 HOURS, INCUBATION TO CONTINUE FOR 1 DAYS. 07/16/17 01:36 Blood - Peripheral Venous Blood Culture - Preliminary NO GROWTH OBTAINED AFTER 96 HOURS, INCUBATION TO CONTINUE FOR 1 DAYS. 07/18/17 20:30 Urine For Antigen Detection Legionella Antigen - Final 07/18/17 20:30 Urine For Antigen Detection Streptococcus pneumoniae Antigen (M - Final 07/18/17 12:10 Nasopharyngeal Swab Respiratory Virus (PCR) - Preliminary 07/16/17 08:18 Urine - Urine Montiel Urine Culture - Final 07/17/17 13:35 Nasopharyngeal Swab Respiratory Syncytial Virus Ag - Final 07/17/17 13:50 Nasopharyngeal Swab Influenza Types A,B Antigen (NATHAN) - Final 07/17/17 13:50 Nasopharyngeal Swab - Final cxray appears unchanged a/p sepsis fever/hypoxia possible HCAP/immunocompromised host cultures have been sent influenza and rsv antigen negative legionella urinary antigennegative d/c vancomycin day #5 antibiotics meropenem/zithromax switch to po augmentin as d/w resident earlier today for 5 days leukocytosis-infection/steroids- resolved please call back if needed Problem List - Problems (1) Sepsis Code(s): A41.9 - SEPSIS, UNSPECIFIED ORGANISM (2) Pneumonia Code(s): J18.9 - PNEUMONIA, UNSPECIFIED ORGANISM (3) Immunocompromised patient Code(s): D84.9 - IMMUNODEFICIENCY, UNSPECIFIED
[2017-07-20] MEDS: AMOX TR/POT CLAV 875MG/125MG TABLETS (FP) PO SCH (16:50)
--- NOTE | 2017-07-20 19:31 | PN ---
Teaching Attending Note Name of Resident: Chidi Maguire ATTENDING PHYSICIAN STATEMENT I saw and evaluated the patient. I reviewed the resident's note and discussed the case with the resident. I agree with the resident's findings and plan as documented. SUBJECTIVE: Comfortable , but confused , with hx of dementia OBJECTIVE: Vital Signs Temperature 97.9 F 07/20/17 18:40 Pulse Rate 78 07/20/17 18:40 Respiratory Rate 24 07/20/17 18:40 Blood Pressure 140/85 07/20/17 18:40 O2 Sat by Pulse Oximetry (%) 95 07/20/17 10:00 CBCD WBC 8.5 K/mm3 (4.0-10.0) 07/20/17 07:40 RBC 3.35 M/mm3 (3.60-5.2) L 07/20/17 07:40 Hgb 8.6 GM/dL (10.7-15.3) L 07/20/17 07:40 Hct 27.9 % (32.4-45.2) L 07/20/17 07:40 MCV 83.1 fl (80-96) 07/20/17 07:40 MCHC 30.7 g/dl (32.0-36.0) L 07/20/17 07:40 RDW 18.7 % (11.6-15.6) H 07/20/17 07:40 Plt Count 228 K/MM3 (134-434) 07/20/17 07:40 MPV 8.8 fl (7.5-11.1) 07/20/17 07:40 CMP Sodium 143 mmol/L (136-145) 07/20/17 07:40 Potassium 3.0 mmol/L (3.5-5.1) L 07/20/17 07:40 Chloride 105 mmol/L (98-107) 07/20/17 07:40 Carbon Dioxide 32 mmol/L (21-32) 07/20/17 07:40 Anion Gap 6 (8-16) L 07/20/17 07:40 BUN 22 mg/dL (7-18) H 07/20/17 07:40 Creatinine 0.5 mg/dL (0.55-1.02) L 07/20/17 07:40 Creat Clearance w eGFR > 60 (>60) 07/20/17 07:40 Random Glucose 132 mg/dL (74-106) H 07/20/17 07:40 Calcium 8.3 mg/dL (8.5-10.1) L 07/20/17 07:40 Total Bilirubin 0.4 mg/dL (0.2-1.0) D 07/20/17 07:40 AST 19 U/L (15-37) 07/20/17 07:40 ALT 19 U/L (12-78) 07/20/17 07:40 Alkaline Phosphatase 50 U/L (45-117) 07/20/17 07:40 Total Protein 5.8 g/dl (6.4-8.2) L 07/20/17 07:40 Albumin 2.6 g/dl (3.4-5.0) L 07/20/17 07:40 CARDIAC ENZYMES Creatine Kinase 60 IU/L (26-192) 07/16/17 06:05 Troponin I < 0.02 ng/ml (0.00-0.05) 07/16/17 06:05 Current Medications Generic Name Dose Route Start Last Admin Trade Name Freq PRN Reason Stop Dose Admin Acetaminophen 650 mg 07/16/17 06:11 Tylenol - PO QID PRN pain Albuterol Sulfate 1 amp 07/16/17 05:50 07/18/17 08:04 Ventolin 0.083% Nebulizer Soln - NEB 1 amp Q4H PRN Administration SHORT OF BREATH/WHEEZING Albuterol/Ipratropium 1 amp 07/19/17 08:00 07/20/17 15:50 Duoneb - NEB 1 amp RQID [facility] Administration Amoxicillin/Clavulanate Potassium 1 tab 07/20/17 17:30 07/20/17 16:50 Augmentin - 875mg Tablet PO 1 tab BID@0800,1730 [facility] Administration Aspirin 81 mg 07/16/17 10:00 07/20/17 11:16 Asa - PO 81 mg DAILY [facility] Administration Atorvastatin Calcium 10 mg 07/16/17 22:00 07/19/17 21:41 Lipitor - PO 10 mg HS [facility] Administration Budesonide/Formoterol Fumarate 1 puff 07/16/17 10:00 07/20/17 10:58 Symbicort 80/4.5mcg - IH 1 puff BID [facility] Administration Calcium Carbonate/Cholecalciferol 1 tab 07/16/17 10:00 07/20/17 11:15 Os-Juan 500+D - PO 1 tab BID [facility] Administration Diltiazem HCl 240 mg 07/17/17 10:00 07/20/17 11:15 Cardizem Cd - PO 240 mg DAILY [facility] Administration Docusate Sodium 200 mg 07/16/17 22:00 07/19/17 21:41 Colace - PO 200 mg HS [facility] Administration Donepezil HCl 10 mg 07/16/17 22:00 07/19/17 22:15 Aricept - PO 10 mg HS [facility] Administration Escitalopram Oxalate 10 mg 07/16/17 10:00 07/20/17 11:14 Lexapro - PO 10 mg DAILY [facility] Administration Ferrous Sulfate 325 mg 07/16/17 10:00 07/20/17 11:16 Feosol - PO 325 mg DAILY [facility] Administration Gabapentin 300 mg 07/16/17 10:00 07/20/17 11:16 Neurontin - PO 300 mg DAILY [facility] Administration Guaifenesin 10 ml 07/16/17 06:30 07/20/17 14:03 Robitussin - PO 10 ml TID [facility] Administration Levothyroxine Sodium 88 mcg 07/16/17 07:00 07/20/17 07:05 Synthroid - PO 88 mcg AM [facility] Administration Loratadine 10 mg 07/16/17 10:00 07/20/17 11:16 Claritin - PO 10 mg DAILY [facility] Administration Memantine 10 mg 07/16/17 10:00 07/20/17 11:15 Namenda - PO 10 mg BID [facility] Administration Methylprednisolone Sodium Succinate 40 mg 07/19/17 15:05 07/20/17 14:04 Solu-Medrol - IVPUSH 40 mg TID [facility] Administration Oxybutynin Chloride 5 mg 07/16/17 10:00 07/20/17 11:15 Ditropan - PO 5 mg DAILY [facility] Administration Pantoprazole Sodium 40 mg 07/16/17 10:00 07/20/17 11:14 Protonix - PO 40 mg DAILY [facility] Administration Polyethylene Glycol 17 gm 07/16/17 10:00 07/20/17 11:17 Miralax (For Daily Use) - PO 17 gm DAILY [facility] Administration Rivaroxaban 20 mg 07/16/17 10:00 07/20/17 11:26 Xarelto - PO 20 mg DAILY [facility] Administration Senna/Docusate Sodium 2 tablet 07/16/17 22:00 07/19/17 21:41 Pericolace - PO 2 tablet HS [facility] Administration Home Medications Medication Instructions Recorded Aa/Hydrolyzed Collagen, Whey [Lps 960 ml PO DAILY 06/09/17 Neutral Flavor Liquid] Acetaminophen [Mapap] 650 mg PO QID PRN 06/09/17 Albuterol Sulfate [Proventil HFA 1 - 2 inh PO QID 06/09/17 Inhaler -] Aspirin [ASA -] 81 mg PO DAILY 06/09/17 Atorvastatin Ca [Lipitor] 10 mg PO HS 06/09/17 Budesonide/Formeterol Fumarate 1 inh PO BID 06/09/17 [SYMBICORT 80/4.5mcg -] Calcium Carbonate/Vitamin D3 1 each PO BID 06/09/17 [Oyster Shell 500-Vit D3 200 Tb] Diltiazem Cd [Cardizem Cd -] 240 mg PO DAILY 06/09/17 Docusate Sodium [Colace -] 200 mg PO HS 06/09/17 Donepezil HCl [Aricept] 10 mg PO HS 06/09/17 Escitalopram Oxalate [Lexapro -] 10 mg PO DAILY 06/09/17 Ferrous Sulfate 325 mg PO DAILY 06/09/17 Gabapentin 600 mg PO HS 06/09/17 Loratadine 10 mg PO DAILY 06/09/17 Memantine HCl [Namenda -] 10 mg PO BID 06/09/17 Mycophenolate Mofetil [Cellcept] 500 mg PO DAILY 06/09/17 Olopatadine HCl [Pataday] 2.5 ml OP DAILY 06/09/17 Oxybutynin Chloride 5 mg PO DAILY 06/09/17 Polyethylene Glycol 3350 [Miralax 17 gm PO DAILY 06/09/17 119 gm Btl -] Rivaroxaban [Xarelto -] 20 mg PO DAILY 06/09/17 Sennosides/Docusate Sodium [Senna 2 each PO HS 06/09/17 Laxative Tablet] Tiotropium [place] [Spiriva] 1 inh PO DAILY 06/09/17 Clonazepam [Klonopin -] 0.5 mg PO BID 07/16/17 Guaifenesin [Robitussin -] 10 ml PO TID 07/16/17 Ipratropium/Albuterol Sulfate 3 ml IH Q6H PRN 07/16/17 [Iprat-Albut 0.5-3(2.5) mg/3 ml] L. 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 She was found to have severe sepsis # Acute hypoxic resp failure improved due to PNA vs worsening Shurg Eugenie on po antibiotic now 875mg po bid . continue her mycophenolate in rehab , is on hold now due to her infection, as per pulm ; cont with po steroids with 20mg patient is chronicly on 15 mg of prednisone cont NEbs. completed IV meropenem # acute hypokalemia will replete with KDUR 40meq now and 20meq in am with food # s/p severe sepsis: due to PNA. continue venti mask, s/p Vanco, meropenem and azithro , Blood culture repeat negative. # Donnell: improved . decrease IVF . elevated BUN is due to steroids # h/o DVT: on xarelto continue # Dementia :cont meds DNR/DNI
[2017-07-20] MEDS ORDERED: POTASSIUM CHLORIDE TABS 20 MEQ TABLET.ER (FP) PO ONE ×2 (19:45→22:30)
[2017-07-20] MEDS: ATORVASTATIN CA 10 MG TABLET (FP) PO SCH (22:24)
[2017-07-20] MEDS: DOCUSATE SODIUM 100 MG CAPSULE (FP) PO SCH (22:24)
[2017-07-20] MEDS: SENNOSIDES/DOCUSATE COMBO (SENNA PLUS) TABLET (UD) PO SCH (22:24)
[2017-07-20] MEDS ORDERED: methylPREDNISolone NA SUCC 40 MG/1 ML VIAL IVPUSH SCH (22:40)
[2017-07-20] MEDS: DONEPEZIL HCL 10 MG TABLET (FP) PO SCH (22:48)
[2017-07-21] MEDS: LEVOTHYROXINE NA 88 MCG TABLET (FP) PO SCH (06:37)
[2017-07-21] MEDS: guaiFENesin 200 MG/10 ML 10 ML UNIT-DOSE CUPS PO SCH (06:37)
[2017-07-21] MEDS: ALBUTEROL SO4 2.5/IPRATROPIUM 0.5 INH SOL 3 ML VIAL.NEB. NEB SCH ×2 (07:50→11:29)
[2017-07-21 08:09] LABS: ALBUMIN 2.8 g/dl (3.4-5.0); BLOOD UREA NITROGEN 21 mg/dL (7-18); CHLORIDE 101 mmol/L (98-107); POTASSIUM 3.3 mmol/L (3.5-5.1); SGOT/AST 25 U/L (15-37); SGPT/ALT 24 U/L (12-78); SODIUM 142 mmol/L (136-145)
[2017-07-21 08:12] LABS: ALK PHOS 50 U/L (45-117); ANION GAP 8 (8-16); BILIRUBIN,TOTAL 0.3 mg/dL (0.2-1.0); CO2 33 mmol/L (21-32); CREATININE 0.6 mg/dL (0.55-1.02); GLUCOSE,RANDOM 144 mg/dL (74-106); MAGNESIUM 2.5 mg/dL (1.8-2.4); TOT PROT 6.3 g/dl (6.4-8.2)
[2017-07-21] MEDS: AMOX TR/POT CLAV 875MG/125MG TABLETS (FP) PO SCH (08:33)
[2017-07-21 08:38] VITALS: TEMP 97.6
[2017-07-21] MEDS ORDERED: POTASSIUM CHLORIDE TABS 20 MEQ TABLET.ER (FP) PO SCH (10:00)
[2017-07-21] MEDS ORDERED: PT OWN MED DRAWER 7, Y5N ONE (10:38)
[2017-07-21] MEDS: ASPIRIN 81 MG CHEWABLE TABLETS PO SCH (10:53)
[2017-07-21] MEDS: LORATADINE 10 MG TABLET PO SCH (10:53)
[2017-07-21] MEDS: GABAPENTIN 300 MG CAPSULE (FP) PO SCH (10:53)
[2017-07-21] MEDS: CALCIUM 500MG/VIT-D 200 UNITS COMBO TABLET (FP) PO SCH (10:53)
[2017-07-21] MEDS: PANTOPRAZOLE 40 MG TABLET (FP) PO SCH (10:53)
[2017-07-21] MEDS: RIVAROXABAN 20 MG TABLET PO SCH (10:53)
[2017-07-21] MEDS: OXYBUTYNIN CHLORIDE 5 MG TABLET PO SCH (10:53)
[2017-07-21] MEDS: FERROUS SO4 325 MG TABLET (FP) PO SCH (10:53)
[2017-07-21] MEDS: ESCITALOPRAM OXALATE 10 MG TABLET (FP) PO SCH (10:53)
[2017-07-21] MEDS: MEMANTINE HCL 10 MG TABLET (FP) PO SCH (10:53)
[2017-07-21] MEDS: POLYETHYLENE GLYCOL 3350 119 GM BTL PO SCH (10:54)
[2017-07-21] MEDS: BUDESONIDE/FORMETEROL FUMARATE 80/4.5 mcg INHALER IH SCH (11:00)
--- NOTE | 2017-07-21 12:12 | PN ---
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
--- NOTE | 2017-07-21 12:30 | PN ---
Teaching Attending Note Name of Resident: Chidi Maguire ATTENDING PHYSICIAN STATEMENT I saw and evaluated the patient. I reviewed the resident's note and discussed the case with the resident. I agree with the resident's findings and plan as documented. SUBJECTIVE: Patient is comfortable with no acute distress, no shortness of breath , no fever or chills. OBJECTIVE: Vital Signs Temperature 97.6 F 07/21/17 08:00 Pulse Rate 81 07/21/17 08:00 Respiratory Rate 18 07/21/17 08:00 Blood Pressure 163/99 07/21/17 08:00 O2 Sat by Pulse Oximetry (%) 94 L 07/21/17 08:53 CBCD WBC 8.5 K/mm3 (4.0-10.0) 07/20/17 07:40 RBC 3.35 M/mm3 (3.60-5.2) L 07/20/17 07:40 Hgb 8.6 GM/dL (10.7-15.3) L 07/20/17 07:40 Hct 27.9 % (32.4-45.2) L 07/20/17 07:40 MCV 83.1 fl (80-96) 07/20/17 07:40 MCHC 30.7 g/dl (32.0-36.0) L 07/20/17 07:40 RDW 18.7 % (11.6-15.6) H 07/20/17 07:40 Plt Count 228 K/MM3 (134-434) 07/20/17 07:40 MPV 8.8 fl (7.5-11.1) 07/20/17 07:40 CMP Sodium 142 mmol/L (136-145) 07/21/17 06:40 Potassium 3.3 mmol/L (3.5-5.1) L 07/21/17 06:40 Chloride 101 mmol/L (98-107) 07/21/17 06:40 Carbon Dioxide 33 mmol/L (21-32) H 07/21/17 06:40 Anion Gap 8 (8-16) 07/21/17 06:40 BUN 21 mg/dL (7-18) H 07/21/17 06:40 Creatinine 0.6 mg/dL (0.55-1.02) 07/21/17 06:40 Creat Clearance w eGFR > 60 (>60) 07/21/17 06:40 Random Glucose 144 mg/dL (74-106) H 07/21/17 06:40 Calcium 9.0 mg/dL (8.5-10.1) 07/21/17 06:40 Total Bilirubin 0.3 mg/dL (0.2-1.0) D 07/21/17 06:40 AST 25 U/L (15-37) 07/21/17 06:40 ALT 24 U/L (12-78) 07/21/17 06:40 Alkaline Phosphatase 50 U/L (45-117) 07/21/17 06:40 Total Protein 6.3 g/dl (6.4-8.2) L 07/21/17 06:40 Albumin 2.8 g/dl (3.4-5.0) L 07/21/17 06:40 CARDIAC ENZYMES Creatine Kinase 60 IU/L (26-192) 07/16/17 06:05 Troponin I < 0.02 ng/ml (0.00-0.05) 07/16/17 06:05 Current Medications Generic Name Dose Route Start Last Admin Trade Name Freq PRN Reason Stop Dose Admin Acetaminophen 650 mg 07/16/17 06:11 07/21/17 06:40 Tylenol - PO 650 mg QID PRN Administration pain Albuterol Sulfate 1 amp 07/16/17 05:50 07/18/17 08:04 Ventolin 0.083% Nebulizer Soln - NEB 1 amp Q4H PRN Administration SHORT OF BREATH/WHEEZING Albuterol/Ipratropium 1 amp 07/19/17 08:00 07/21/17 11:29 Duoneb - NEB 1 amp RQID BEVERLY Administration Amoxicillin/Clavulanate Potassium 1 tab 07/20/17 17:30 07/21/17 08:33 Augmentin - 875mg Tablet PO 1 tab BID@0800,1730 BEVERLY Administration Aspirin 81 mg 07/16/17 10:00 07/21/17 10:53 Asa - PO 81 mg DAILY BEVERLY Administration Atorvastatin Calcium 10 mg 07/16/17 22:00 07/20/17 22:24 Lipitor - PO 10 mg HS BEVERLY Administration Budesonide/Formoterol Fumarate 1 puff 07/16/17 10:00 07/20/17 22:26 Symbicort 80/4.5mcg - IH 1 puff BID BEVERLY Administration Calcium Carbonate/Cholecalciferol 1 tab 07/16/17 10:00 07/21/17 10:53 Os-Juan 500+D - PO 1 tab BID BEVERLY Administration Diltiazem HCl 240 mg 07/17/17 10:00 07/21/17 10:53 Cardizem Cd - PO 240 mg DAILY BEVER[facility] Administration Docusate Sodium 200 mg 07/16/17 22:00 07/20/17 22:24 Colace - PO 200 mg HS BEVERLY Administration Donepezil HCl 10 mg 07/16/17 22:00 07/20/17 22:48 Aricept - PO 10 mg HS BEVERLY Administration Escitalopram Oxalate 10 mg 07/16/17 10:00 07/21/17 10:53 Lexapro - PO 10 mg DAILY B[facility] Administration Ferrous Sulfate 325 mg 07/16/17 10:00 07/21/17 10:53 Feosol - PO 325 mg DAILY B[facility] Administration Gabapentin 300 mg 07/16/17 10:00 07/21/17 10:53 Neurontin - PO 300 mg DAILY B[facility] Administration Guaifenesin 10 ml 07/16/17 06:30 07/21/17 06:37 Robitussin - PO 10 ml TID BEVERLY Administration Levothyroxine Sodium 88 mcg 07/16/17 07:00 07/21/17 06:37 Synthroid - PO 88 mcg AM BEVERLY Administration Loratadine 10 mg 07/16/17 10:00 07/21/17 10:53 Claritin - PO 10 mg DAILY B[facility] Administration Memantine 10 mg 07/16/17 10:00 07/21/17 10:53 Namenda - PO 10 mg BID B[place] Administration Methylprednisolone Sodium Succinate 40 mg 07/20/17 22:40 07/21/17 06:37 Solu-Medrol - IVPUSH 40 mg TID BEVERLY Administration Oxybutynin Chloride 5 mg 07/16/17 10:00 07/21/17 10:53 Ditropan - PO 5 mg DAILY B[facility] Administration Pantoprazole Sodium 40 mg 07/16/17 10:00 07/21/17 10:53 Protonix - PO 40 mg DAILY B[facility] Administration Polyethylene Glycol 17 gm 07/16/17 10:00 07/21/17 10:54 Miralax (For Daily Use) - PO Not Given DAILY [facility] Potassium Chloride 20 meq 07/21/17 10:00 07/21/17 10:53 K-Dur - PO 20 meq DAILY B[place] Administration Rivaroxaban 20 mg 07/16/17 10:00 07/21/17 10:53 Xarelto - PO 20 mg DAILY [facility] Administration Senna/Docusate Sodium 2 tablet 07/16/17 22:00 07/20/17 22:24 Pericolace - PO 2 tablet HS [facility] Administration Home Medications Medication Instructions Recorded Aa/Hydrolyzed Collagen, [place] [Lps 960 ml PO DAILY 06/09/17 Neutral Flavor Liquid] Acetaminophen [Mapap] 650 mg PO QID PRN 06/09/17 Albuterol Sulfate [Proventil HFA 1 - 2 inh PO QID 06/09/17 Inhaler -] Aspirin [ASA -] 81 mg PO DAILY 06/09/17 Atorvastatin Ca [Lipitor] 10 mg PO HS 06/09/17 Budesonide/Formeterol Fumarate 1 inh PO BID 06/09/17 [SYMBICORT 80/4.5mcg -] Calcium Carbonate/Vitamin D3 1 each PO BID 06/09/17 [Oyster Shell 500-Vit D3 200 Tb] Diltiazem Cd [Cardizem Cd -] 240 mg PO DAILY 06/09/17 Docusate Sodium [Colace -] 200 mg PO HS 06/09/17 Donepezil HCl [Aricept] 10 mg PO HS 06/09/17 Escitalopram Oxalate [Lexapro -] 10 mg PO DAILY 06/09/17 Ferrous Sulfate 325 mg PO DAILY 06/09/17 Gabapentin 600 mg PO HS 06/09/17 Loratadine 10 mg PO DAILY 06/09/17 Memantine HCl [Namenda -] 10 mg PO BID 06/09/17 Mycophenolate Mofetil [Cellcept] 500 mg PO DAILY 06/09/17 Olopatadine HCl [Pataday] 2.5 ml OP DAILY 06/09/17 Oxybutynin Chloride 5 mg PO DAILY 06/09/17 Polyethylene Glycol 3350 [Miralax 17 gm PO DAILY 06/09/17 119 gm Btl -] Rivaroxaban [Xarelto -] 20 mg PO DAILY 06/09/17 Sennosides/Docusate Sodium [Senna 2 each PO HS 06/09/17 Laxative Tablet] Tiotropium [place] [Spiriva] 1 inh PO DAILY 06/09/17 Clonazepam [Klonopin -] 0.5 mg PO BID 07/16/17 Guaifenesin [Robitussin -] 10 ml PO TID 07/16/17 Ipratropium/Albuterol Sulfate 3 ml IH Q6H PRN 07/16/17 [Iprat-Albut 0.5-3(2.5) mg/3 ml] L. 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 She was found to have severe sepsis # Acute hypoxic respiratory failure improved due to PNA/ churg Eugenie on po antibiotic now 875mg po bid. Continue her mycophenolate in rehab , po steroids with 20mg continue , patient is chronicly on 15 mg of prednisone cont NEbs. completed ( meropenem ). # acute hypokalemia will replete with KDUR 40meq given last night and 20meq today with food # s/p severe sepsis: due to PNA. continue venti mask, s/p Vanco, meropenem and azithro , Blood culture repeat negative. # Donnell: improved . decrease IVF . elevated BUN is due to steroids # h/o DVT: on xarelto continue # Dementia :cont meds DNR/DNI
[2017-07-21 12:45] VITALS: BP 126/70; PULSE 94
[2017-07-21 16:29] LABS: MYCOPLASMA PNEUMONIAE,IG G AB <100 U/mL (0-99); MYCOPLASMA PNEUMONIAE,IGM AB <770 U/mL (0-769)
== END 2017-07-21 13:00 | DRG 871 ==
LOC: JER 23:43 → SUPCPDRO 23:43 → JERBED 07-16 04:10 → UNDOADMIN 07-16 04:21 → JERBED 07-16 04:21 → J5S 07-17 18:31 → J6S 07-20 19:29
PROVIDERS: ADMIT Internal Medicine; ATTEND Internal Medicine
DX: A41.9 Sepsis, unspecified organism (principal); J96.21 Acute and chronic respiratory failure with hypoxia; J18.9 Pneumonia, unspecified organism; M30.1 Polyarteritis with lung involvement [Churg-Strauss]; C85.90 Non-Hodgkin lymphoma, unspecified, unspecified site; E87.2 Acidosis; N17.9 Acute kidney failure, unspecified; J44.1 Chronic obstructive pulmonary disease with (acute) exacerbation; R65.20 Severe sepsis without septic shock; Z99.81 Dependence on supplemental oxygen; Z86.718 Personal history of other venous thrombosis and embolism; Z79.01 Long term (current) use of anticoagulants; Z66 Do not resuscitate; Y95 Nosocomial condition; I25.10 Atherosclerotic heart disease of native coronary artery without angina pectoris; G30.9 Alzheimer's disease, unspecified; F02.80 Dementia in other diseases classified elsewhere, unspecified severity, without behavioral disturbance, psychotic disturbance, mood disturbance, and anxiety; E78.5 Hyperlipidemia, unspecified; K21.9 Gastro-esophageal reflux disease without esophagitis; F41.9 Anxiety disorder, unspecified; F32.9 Major depressive disorder, single episode, unspecified; N32.81 Overactive bladder; D64.9 Anemia, unspecified; K59.00 Constipation, unspecified; I27.20 Pulmonary hypertension, unspecified; E87.6 Hypokalemia
CPT/HCPCS: 36415; 36600; 71045-TC; 80048; 80053; 81003; 81015; 82550; 82803; 82962; 83605; 83735; 84100; 84484; 85025; 85610; 85730; 86738; 86850; 86900; 86901; 87040; 87086; 87420; 87633; 87804; 87899; 93005; 93010; 93306-TC; 94640; 94660; 99285-25; G0480

== ENCOUNTER 2017-07-26 10:37 | Inpatient (IN) | payer OTHER ==
--- NOTE | 2017-07-26 11:07 | PDOC ---
History of Present Illness - General History Source: Patient, EMS, Old Records Exam Limitations: Dementia - History of Present Illness Initial Comments: 07/26/17 13:10 The patient is an 87 year old female with a history of CAD (on aspirin), COPD/ asthma (on 2L O2 dependent), Alzheimers, dementia, lymphoma, lung CA, HTN, HLD, GERD, hypothyroidism, Churg-Eugenie syndrome, anxiety, and PE, who [facility] evaluation of altered mental status, poor appetite, and lethargy since this morning. The patient reports she feels tired. She denies abdominal pain, nausea, vomiting, diarrhea, or constipation. Patients history is limited due to clinical condition. Allergies: Levofloxacin Past Surgical History: Right hip hemiarthroplasty. Social History: Former smoker. No ETOH or recreational drug use. Edi Consultant: Dr. Mehta <Chio Iniguez - Last Filed: 07/26/17 16:50> <Regina Villagran - Last Filed: 08/03/17 13:08> - General Chief Complaint: Lethargy Stated Complaint: AMS Time Seen by Provider: 07/26/17 11:07 Past History <Chio Iniguez - Last Filed: 07/26/17 16:50> - Past Medical History Anemia: No Asthma: Yes Cancer: Yes (NON HODGKINS LYMPHOMA,) Cardiac Disorders: (AFIB) CVA: No COPD: Yes CHF: No Dementia: Yes GI Disorders: Yes (GERD) Disorders: Yes (BLADDER DROP) HTN: Yes Hypercholesterolemia: Yes 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, anxiety) Thyroid Disease: Yes (hypothyroid) - Surgical History Lung Surgery: Yes - Immunization History Td Vaccination: (unknown) Immunization Up to Date: Yes - Suicide/Smoking/Psychosocial Hx Smoking Status: No Smoking History: Unknown if ever smoked Years of Tobacco Use: 40 Have you smoked in the past 12 months: No Number of Cigarettes Smoked Daily: 0 If you are a former smoker, when did you quit?: 45 years ago Cigars Per Day: 0 Hx Alcohol Use: No Drug/Substance Use Hx: No Substance Use Type: None Hx Substance Use Treatment: No <Regina Villagran - Last Filed: 08/03/17 13:08> - Past Medical History Allergies/Adverse Reactions: Allergies Allergy/AdvReac Type Severity Reaction Status Date / Time levofloxacin [From Levaquin] Allergy Unknown Itching Verified 07/20/17 14:47 Home Medications: Ambulatory Orders Acetaminophen [Mapap] 650 mg PO QID PRN 06/09/17 Albuterol Sulfate [Proventil HFA Inhaler -] 1 - 2 inh PO QID 06/09/17 Aspirin [ASA -] 81 mg PO DAILY 06/09/17 Atorvastatin Ca [Lipitor] 10 mg PO HS 06/09/17 Calcium Carbonate/Vitamin D3 [Oyster Shell 500-Vit D3 200 Tb] 1 each PO BID 02/16 Diltiazem Cd [Cardizem Cd -] 240 mg PO DAILY 06/09/17 Docusate Sodium [Colace -] 200 mg PO HS 06/09/17 Donepezil HCl [Aricept] 10 mg PO HS 06/09/17 Escitalopram Oxalate [Lexapro -] 10 mg PO DAILY 06/09/17 Ferrous Sulfate 325 mg PO DAILY 06/09/17 Gabapentin 600 mg PO HS 06/09/17 Loratadine 10 mg PO DAILY 06/09/17 Memantine HCl [Namenda -] 10 mg PO BID 06/09/17 Mycophenolate Mofetil [Cellcept] 500 mg PO DAILY 06/09/17 Oxybutynin Chloride 5 mg PO DAILY 06/09/17 Polyethylene Glycol 3350 [Miralax 119 gm Btl -] 17 gm PO DAILY 06/09/17 Rivaroxaban [Xarelto -] 20 mg PO DAILY 06/09/17 Sennosides/Docusate Sodium [Senna Laxative Tablet] 2 each PO HS 06/09/17 Tiotropium [place] [Spiriva] 1 inh PO DAILY 06/09/17 L. Acidophilus/Pectin, [place] [Acidophilus Capsule] 1 each PO BID 07/16/17 Prednisone [Deltasone -] 20 mg PO DAILY #30 tablet 07/20/17 Albuterol 0.083% Nebulizer [place] [Ventolin 0.083% Nebulizer Soln -] 1 neb NEB Q6H PRN #1 vial 07/31/17 Amoxicillin/Potassium Clav [Augmentin 875-125 Tablet] 1 each PO BID #10 tablet 07/31/17 Budesonide/Formeterol Fumarate [SYMBICORT 160/4.5mcg -] 1 inh IH BID #1 inhaler 07/31/17 Review of Systems - Review of Systems Able to Perform ROS?: No <Chio Iniguez - Last Filed: 07/26/17 16:50> *Physical Exam - Vital Signs Last Vital Signs Temp Pulse Resp BP Pulse Ox 97.6 F 91 H 16 108/68 96 07/26/17 11:12 07/26/17 12:39 07/26/17 12:39 07/26/17 12:39 07/26/17 12:39 - Physical Exam Comments: 07/26/17 13:11 GENERAL: Lethargic. Arousable with verbal stimuli. Answers questions appropriately. HEAD: Normal with no signs of trauma. EYES: PERRLA, EOMI, sclera anicteric, conjunctiva clear. ENT: Ears normal, nares patent, oropharynx clear without exudates. Moist mucous membranes. NECK: Normal range of motion, supple without lymphadenopathy, JVD, or masses. LUNGS: Coarse breath sounds bilaterally. Breath sounds equal. No wheezes, rales , ronchi, or crackles. HEART:Regular rate and rhythm, normal S1 and S2 without murmur, rub or gallop. ABDOMEN: Soft, nontender, normoactive bowel sounds. No guarding, no rebound. EXTREMITIES: Edematous and ecchymotic upper extremities bilaterally. Normal range of motion. No clubbing or cyanosis. No erythema, or tenderness. NEUROLOGICAL: Cranial nerves II through XII grossly intact. No focal neurological deficits. MUSCULOSKELETAL: Back non-tender to palpation, no CVA tenderness SKIN: Edematous and ecchymotic upper extremities bilaterally. Warm, Dry, normal turgor, no rashes or lesions noted. <IniguezNaziapriya - Last Filed: 07/26/17 16:50> Heart Score/ECG Review - ECG Intrepretation Comment:: 07/26/17 16:50 Vent Rate: 83 bpm IMPRESSION: Normal sinus rhythm with marked sinus arrhythmia. Moderate voltage criteria for LVH, may be normal variant. Nonspecific T wave abnormality. <Chio Iniguez - Last Filed: 07/26/17 16:50> ED Treatment Course - LABORATORY CBC & Chemistry Diagram: 07/26/17 11:12 07/26/17 11:12 - ADDITIONAL ORDERS Additional order review: Laboratory Results 07/26/17 07/26/17 07/26/17 11:35 11:12 11:12 PT with INR INR PTT (Actin FS) VBG pH POC VBG pCO2 POC VBG pO2 Mixed VBG HCO3 Sodium Potassium Chloride Carbon Dioxide Anion Gap BUN Creatinine Creat Clearance w eGFR POC Glucometer Random Glucose Lactic Acid 1.1 Calcium Total Bilirubin AST ALT Alkaline Phosphatase Creatine Kinase Troponin I Total Protein Albumin Urine Color Yellow Urine Appearance Clear Urine pH 5.[address] [place] 1.014 Urine Protein Negative Urine Glucose (UA) Negative Urine Ketones Negative Urine Blood Negative Urine Nitrite Negative Urine Bilirubin Negative Urine Urobilinogen Negative Ur Leukocyte Esterase Trace Urine WBC (Auto) 1 Urine RBC (Auto) None Ur Epithelial Cells Rare Urine Bacteria Rare Hyaline Casts 8 Urine Mucus Rare Blood Type A NEGATIVE Antibody Screen Negative 07/26/17 07/26/17 07/26/17 11:12 11:12 11:12 PT with INR 20.90 H INR 1.85 H D PTT (Actin FS) 26.1 L VBG pH 7.37 POC VBG pCO2 62.5 H* POC VBG pO2 33.7 Mixed VBG HCO3 35.5 H Sodium 146 H Potassium 3.7 Chloride 104 Carbon Dioxide 32 Anion Gap 10 BUN 60 H D Creatinine 1.3 H Creat Clearance w eGFR 38.57 POC Glucometer Random Glucose 108 H Lactic Acid Calcium 9.3 Total Bilirubin 0.3 AST 14 L ALT 25 Alkaline Phosphatase 67 Creatine Kinase 25 L Troponin I < 0.02 Total Protein 6.2 L Albumin 2.8 L Urine Color Urine Appearance Urine pH Ur Specific [place] Urine Protein Urine Glucose (UA) Urine Ketones Urine Blood Urine Nitrite Urine Bilirubin Urine Urobilinogen Ur Leukocyte Esterase Urine WBC (Auto) Urine RBC (Auto) Ur Epithelial Cells Urine Bacteria Hyaline Casts Urine Mucus Blood Type Antibody Screen 07/26/17 10:51 PT with INR INR PTT (Actin FS) VBG pH POC VBG pCO2 POC VBG pO2 Mixed VBG HCO3 Sodium Potassium Chloride Carbon Dioxide Anion Gap BUN Creatinine Creat Clearance w eGFR POC Glucometer [phone] Random Glucose Lactic Acid Calcium Total Bilirubin AST ALT Alkaline Phosphatase Creatine Kinase Troponin I Total Protein Albumin Urine Color Urine Appearance Urine pH Ur Specific [place] Urine Protein Urine Glucose (UA) Urine Ketones Urine Blood Urine Nitrite Urine Bilirubin Urine Urobilinogen Ur Leukocyte Esterase Urine WBC (Auto) Urine RBC (Auto) Ur Epithelial Cells Urine Bacteria Hyaline Casts Urine Mucus Blood Type Antibody Screen 07/26/17 10:51 POC Glucometer [phone] <Chio Iniguez - Last Filed: 07/26/17 16:50> - LABORATORY CBC & Chemistry Diagram: 07/31/17 07:49 07/31/17 07:49 <Regina Villagran - Last Filed: 08/03/17 13:08> Medical Decision Making - Medical Decision Making 07/26/17 13:37 First call placed to Dr. Mehta at 13:40. Awaiting call back. Second call placed to Dr. Mehta at 14:05. Awaiting call back. Case discussed with Dr. Mehta at 14:06. <Chio Iniguez - Last Filed: 07/26/17 16:50> - Medical Decision Making 07/26/17 13:54 This is an 87 yo immunosuppressed F presenting to the ER due to increased lethargy Pt was recently discharged, dx : aspiration and sepsis Pt has been lethargic [facility] no fevers noted On examination: Pt is arousable to voice RRR Coarse breath sounds No abd tenderness to palpation, no distention bilateral upper extremity edema No lower extremity edema 07/26/17 16:43 EKG: Sinus rhythm, rate of 83 bpm, axis normal, intervals are normal, no ST elevations or depressions, T waves are upright DD includes but is not limited to : aspiration pneumonia, hypercarbia, hypoxia, other serious bacterial infections Laboratory Tests 07/26/17 07/26/17 07/26/17 11:12 11:12 11:12 WBC 25.3 H D Hgb 10.7 D Hct 36.5 D Plt Count 341 D Neutrophils % 89.5 H Lymphocytes % 5.1 L D INR 1.85 H D ABG pH ABG pCO2 at Pt Temp ABG pO2 at Pt Temp Sodium 146 H Potassium 3.7 Chloride 104 Carbon Dioxide 32 BUN 60 H D Creatinine 1.3 H Random Glucose 108 H Creatine Kinase 25 L Troponin I < 0.02 Urine Blood Urine Nitrite Ur Leukocyte Esterase Urine WBC (Auto) Urine RBC (Auto) 07/26/17 07/26/17 11:35 13:05 WBC Hgb Hct Plt Count Neutrophils % Lymphocytes % INR ABG pH 7.41 ABG pCO2 at Pt Temp 55.5 H ABG pO2 at Pt Temp 68.1 Sodium Potassium Chloride Carbon Dioxide BUN Creatinine Random Glucose Creatine Kinase Troponin I Urine Blood Negative Urine Nitrite Negative Ur Leukocyte Esterase Trace Urine WBC (Auto) 1 Urine RBC (Auto) None Leukocytosis noted, pt has been on prednisone, this may be a cause Pt is not severely hypercarbic No evidence of ACS 07/26/17 16:45 Pt noted by daughter to be deteriorating pt is increasingly short of breath and is delirious Case reviewed with dr Adamson he agrees with admission to hospitalist Case reviewed with Hospitalist Will admit Clinical impression: lethargy, initial presentation <Regina Villagran - Last Filed: 08/03/17 13:08> *DC/Admit/Observation/Transfer - Attestations Scribe Attestion: 07/26/17 13:11 Documentation prepared by Chio Iniguze, acting as medical payment poster for Regina Villagran MD. <Chio Iniguez - Last Filed: 07/26/17 16:50> - Discharge Dispostion Admit: Yes <Regina Villagran - Last Filed: 08/03/17 13:08> Diagnosis at time of Disposition: Lethargy - Discharge Dispostion Disposition: [facility] FACILITY Condition at time of disposition: Improved
[2017-07-26 12:03] LABS: BASO % 0.5 % (0-2.0); EOS % 0.1 % (0-4.5); HEMATOCRIT 36.5 % (32.4-45.2); HEMOGLOBIN 10.7 GM/dL (10.7-15.3); LYMPH % 5.1 % (8-40); MCHC 29.3 g/dl (32.0-36.0); MEAN CELL VOLUME 85.3 fl (80-96); MEAN PLT VOLUME 8.7 fl (7.5-11.1); MONO % 4.8 % (3.8-10.2); NEUT % 89.5 % (42.8-82.8); PLATELET COUNT 341 K/MM3 (134-434); RBC 4.28 M/mm3 (3.60-5.2); RDW 19.2 % (11.6-15.6); VENOUS PH 7.37 (7.32-7.42); WHITE BLOOD COUNT 25.3 K/mm3 (4.0-10.0)
[2017-07-26 12:04] LABS: VENOUS PC02 62.5 mmHg (38-52); VENOUS PO2 33.7 mmHg (28-48)
[2017-07-26 12:05] LABS: URINE APPEARANCE CLEAR; URINE BILIRUBIN NEGATIVE (NEGATIVE); URINE BLOOD NEGATIVE (NEGATIVE); URINE COLOR YELLOW; URINE GLUCOSE (UA) NEGATIVE (NEGATIVE); URINE KETONE NEGATIVE (NEGATIVE); URINE LEUK ESTERASE TRACE (NEGATIVE); URINE NITRITE NEGATIVE (NEGATIVE); URINE PROTEIN NEGATIVE (NEGATIVE); URINE UROBILINOGEN NEGATIVE mg/dL (0.2-1.0)
[2017-07-26 12:15] LABS: INR 1.85 (0.82-1.09); PROTHROMBIN TIME (PATIENT) 20.9 SEC (9.98-11.88)
[2017-07-26 12:18] LABS: ACTIVATED PTT 26.1 SECONDS (26.9-34.4)
[2017-07-26 12:19] LABS: EPI CELLS RARE /HPF (FEW); URINE BACTERIA RARE /hpf (NONE SEEN); URINE HYALINE CAST 8 /lpf; URINE MUCUS RARE
--- NOTE | 2017-07-26 12:44 | EKG ---
Test Reason : Blood Pressure : / mmHG Vent. Rate : 083 BPM Atrial Rate : 083 BPM P-R Int : 130 ms QRS Dur : 102 ms QT Int : 358 ms P-R-T Axes : 046 012 077 degrees QTc Int : 420 ms SINUS RHYTHM WITH MARKED SINUS ARRHYTHMIA MODERATE VOLTAGE CRITERIA FOR LVH, MAY BE NORMAL VARIANT NONSPECIFIC T WAVE ABNORMALITY ABNORMAL ECG WHEN COMPARED WITH ECG OF 18-JUL-2017 08:42, PREMATURE ATRIAL COMPLEXES ARE NO LONGER PRESENT NONSPECIFIC T WAVE ABNORMALITY, WORSE IN INFERIOR LEADS Confirmed by BRAYAN SHIRLEY, SIS ([id number]) on 07/26/2017 12:44:04 PM Referred By: Confirmed By:SIS SCHMIDT MD
[2017-07-26 12:47] LABS: ALBUMIN 2.8 g/dl (3.4-5.0); ANION GAP 10 (8-16); BILIRUBIN,TOTAL 0.3 mg/dL (0.2-1.0); BLOOD UREA NITROGEN 60 mg/dL (7-18); CALCIUM 9.3 mg/dL (8.5-10.1); CHLORIDE 104 mmol/L (98-107); CO2 32 mmol/L (21-32); CREATININE 1.3 mg/dL (0.55-1.02); GLUCOSE,RANDOM 108 mg/dL (74-106); POTASSIUM 3.7 mmol/L (3.5-5.1); SGOT/AST 14 U/L (15-37); SGPT/ALT 25 U/L (12-78); SODIUM 146 mmol/L (136-145); TOT PROT 6.2 g/dl (6.4-8.2)
[2017-07-26 12:50] LABS: ALK PHOS 67 U/L (45-117)
[2017-07-26 13:37] LABS: ARTERIAL BLD GAS O2 SATURATION 93.7 % (90-98.9); ARTERIAL BLOOD GAS BASE EXCESS 8.6 meq/l (-2-2); ARTERIAL BLOOD GAS PCO2 55.5 mmHg (35-45); ARTERIAL BLOOD GAS PO2 68.1 mmHg (68-100); ARTERIAL BLOOD GAS pH 7.41 (7.35-7.45)
[2017-07-26 14:09] LABS: ALLENS TEST POSITIVE
--- NOTE | 2017-07-26 15:27 | HP ---
CHIEF COMPLAINT: lethargy PCP: Dr. 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 (for rehab, normally lives in assisted living facility) for worsening lethargy and decreased appetite over the last 2-3 days according to daughter at bedside (Chapis). Pt is usually talkative and able to keep up somewhat of a convo according to daughter at her baseline. Daughter noticed over phone on Monday that the pt sounded weaker and had some difficulty speaking. Today pt is only able to awoken by sternal rub. Daughter denies pt complaining of any abd pain, CP, change in bowels, change in urination, swelling over the last few days. When the patient is awoken she states "im okay" and that "i have no pains". Pt falls back to sleep after answering questions. 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 Allergies levofloxacin [From Levaquin] Allergy (Unknown, Verified 07/20/17 14:47) Itching HOME MEDICATIONS: Home Medications Medication Instructions Recorded Acetaminophen [Mapap] 650 mg PO QID PRN 06/09/17 Albuterol Sulfate [Proventil HFA 1 - 2 inh PO QID 06/09/17 Inhaler -] Aspirin [ASA -] 81 mg PO DAILY 06/09/17 Atorvastatin Ca [Lipitor] 10 mg PO HS 06/09/17 Budesonide/Formeterol Fumarate 1 inh PO BID 06/09/17 [SYMBICORT 80/4.5mcg -] Calcium Carbonate/Vitamin D3 1 each PO BID 06/09/17 [Oyster Shell 500-Vit D3 200 Tb] Diltiazem Cd [Cardizem Cd -] 240 mg PO DAILY 06/09/17 Docusate Sodium [Colace -] 200 mg PO HS 06/09/17 Donepezil HCl [Aricept] 10 mg PO HS 06/09/17 Escitalopram Oxalate [Lexapro -] 10 mg PO DAILY 06/09/17 Ferrous Sulfate 325 mg PO DAILY 06/09/17 Gabapentin 600 mg PO HS 06/09/17 Loratadine 10 mg PO DAILY 06/09/17 Memantine HCl [Namenda -] 10 mg PO BID 06/09/17 Mycophenolate Mofetil [Cellcept] 500 mg PO DAILY 06/09/17 Oxybutynin Chloride 5 mg PO DAILY 06/09/17 Polyethylene Glycol 3350 [Miralax 17 gm PO DAILY 06/09/17 119 gm Btl -] Rivaroxaban [Xarelto -] 20 mg PO DAILY 06/09/17 Sennosides/Docusate Sodium [Senna 2 each PO HS 06/09/17 Laxative Tablet] Tiotropium [place] [Spiriva] 1 inh PO DAILY 06/09/17 Ipratropium/Albuterol Sulfate 3 ml IH Q6H PRN 07/16/17 [Iprat-Albut 0.5-3(2.5) mg/3 ml] L. Acidophilus/Pectin, [place] 1 each PO BID 07/16/17 [Acidophilus Capsule] Prednisone [Deltasone -] 20 mg PO DAILY #30 tablet 07/20/17 REVIEW OF SYSTEMS Pt lethargic and unable to be obtained from pt PHYSICAL EXAMINATION Vital Signs - 24 hr 07/26/17 07/26/17 07/26/17 11:07 11:12 12:39 Temperature 97.6 F 97.6 F Pulse Rate 83 81 Pulse Rate [ 91 H Left Apical] Respiratory 14 14 16 Rate Blood Pressure 119/61 114/61 Blood Pressure 108/68 [Right Arm] O2 Sat by Pulse 96 96 96 Oximetry (%) 07/26/17 15:21 Temperature 97.6 F Pulse Rate Pulse Rate [ 84 Left Apical] Respiratory 16 Rate Blood Pressure Blood Pressure 132/72 [Right Arm] O2 Sat by Pulse 99 Oximetry (%) GENERAL: Lethargic, wakes to sternal rub, unable to give history. HEAD: Normal with no signs of trauma. EARS, NOSE, THROAT: Ears normal, nares patent LUNGS: b/l rales greater at bases b/l. No accessory muscle use. HEART: Regular rate and rhythm, normal S1 and S2 without murmur ABDOMEN: Soft, nontender, not distended, normoactive bowel sounds UPPER EXTREMITIES: RUE with swelling, ecchymotic, nontender LOWER EXTREMITIES: warm, well-perfused. No peripheral edema. NEUROLOGICAL: lethargic SKIN: Warm, dry, ecchymotic RUE CBCD WBC 25.3 K/mm3 (4.0-10.0) H D 07/26/17 11:12 RBC 4.28 M/mm3 (3.60-5.2) D 07/26/17 11:12 Hgb 10.7 GM/dL (10.7-15.3) D 07/26/17 11:12 Hct 36.5 % (32.4-45.2) D 07/26/17 11:12 MCV 85.3 fl (80-96) 07/26/17 11:12 MCHC 29.3 g/dl (32.0-36.0) L 07/26/17 11:12 RDW 19.2 % (11.6-15.6) H 07/26/17 11:12 Plt Count 341 K/MM3 (134-434) D 07/26/17 11:12 MPV 8.7 fl (7.5-11.1) 07/26/17 11:12 CMP Sodium 146 mmol/L (136-145) H 07/26/17 11:12 Potassium 3.7 mmol/L (3.5-5.1) 07/26/17 11:12 Chloride 104 mmol/L (98-107) 07/26/17 11:12 Carbon Dioxide 32 mmol/L (21-32) 07/26/17 11:12 Anion Gap 10 (8-16) 07/26/17 11:12 BUN 60 mg/dL (7-18) H D 07/26/17 11:12 Creatinine 1.3 mg/dL (0.55-1.02) H 07/26/17 11:12 Creat Clearance w eGFR 38.57 (>60) 07/26/17 11:12 Random Glucose 108 mg/dL (74-106) H 07/26/17 11:12 Calcium 9.3 mg/dL (8.5-10.1) 07/26/17 11:12 Total Bilirubin 0.3 mg/dL (0.2-1.0) 07/26/17 11:12 AST 14 U/L (15-37) L 07/26/17 11:12 ALT 25 U/L (12-78) 07/26/17 11:12 Alkaline Phosphatase 67 U/L (45-117) 07/26/17 11:12 Total Protein 6.2 g/dl (6.4-8.2) L 07/26/17 11:12 Albumin 2.8 g/dl (3.4-5.0) L 07/26/17 11:12 INR, PTT INR 1.85 (0.82-1.09) H D 07/26/17 11:12 07/26/17 11:12 Lactic Acid 1.1 CARDIAC ENZYMES Creatine Kinase 25 IU/L (26-192) L 07/26/17 11:12 Troponin I < 0.02 ng/ml (0.00-0.05) 07/26/17 11:12 ABG Results ABG pH 7.41 (7.35-7.45) 07/26/17 13:05 ABG pCO2 at Pt Temp 55.5 mmHg (35-45) H 07/26/17 13:05 ABG pO2 at Pt Temp 68.1 mmHg (68-100) 07/26/17 13:05 ABG HCO3 34.2 meq/L (22-26) H 07/26/17 13:05 ABG O2 Sat (Measured) 93.7 % (90-98.9) 07/26/17 13:05 ABG O2 Content 13.1 % vol (15-22) L 07/26/17 13:05 ABG Base Excess 8.6 meq/l (-2-2) H 07/26/17 13:05 Urine Test Results Urine Color Yellow 07/26/17 11:35 Urine Appearance Clear 07/26/17 11:35 Urine pH 5.0 (5.0-8.0) 07/26/17 11:35 Ur Specific [place] 1.014 (1.001-1.035) 07/26/17 11:35 Urine Protein Negative (NEGATIVE) 07/26/17 11:35 Urine Glucose (UA) Negative (NEGATIVE) 07/26/17 11:35 Urine Ketones Negative (NEGATIVE) 07/26/17 11:35 Urine Blood Negative (NEGATIVE) 07/26/17 11:35 Urine Nitrite Negative (NEGATIVE) 07/26/17 11:35 Urine Bilirubin Negative (NEGATIVE) 07/26/17 11:35 Ur Leukocyte Esterase Trace (NEGATIVE) 07/26/17 11:35 Ur Epithelial Cells Rare /HPF (FEW) 07/26/17 11:35 Urine Bacteria Rare /hpf (NONE SEEN) 07/26/17 11:35 Urine Mucus Rare 07/26/17 11:35 Imaging: CXR: 07/26/17 - No acute pathology or significant change Microbiology 07/26/17 Unknown Nasopharyngeal Swab Influenza Types A,B Antigen (NATHAN) - Preliminary 07/26/17 Unknown Nasopharyngeal Swab - Preliminary Blood culture Pending Urine culture Pending Urine antigens for PNA Pending Active Medications Aspirin (Asa -) 81 mg PO DAILY [facility] Atorvastatin Calcium (Lipitor -) 10 mg PO HS [facility] Donepezil HCl (Aricept -) 10 mg PO HS [facility] Escitalopram Oxalate (Lexapro -) 10 mg PO DAILY [facility] Gabapentin (Neurontin -) 600 mg PO HS [facility] Sodium Chloride (Normal Saline -) 1,000 mls @ 75 mls/hr IV ASDIR [facility] Last Admin: 07/26/17 16:37 Dose: 75 mls/hr Vancomycin HCl 1,250 mg/ (Dextrose) 250 mls @ 166.667 mls/hr IVPB ONCE ONE PRN Reason: Protocol Stop: 07/26/17 17:59 Memantine (Namenda -) 10 mg PO BID [facility] Mycophenolate Mofetil (Cellcept -) 500 mg PO DAILY [facility] Prednisone (Deltasone -) 20 mg PO DAILY [facility] Rivaroxaban (Xarelto -) 20 mg PO DAILY [facility] ASSESSMENT/PLAN: 87 y/o F w/PMH of CAD, COPD/asthma (on home 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 (for rehab, normally lives in assisted living facility) for worsening lethargy and decreased appetite over the last 2-3 days. Admitted for sepsis secondary to possible aspiration pna vs hcap. -Acute hypoxic, hypercapnic respiratory failure and altered mental status secondary sepsis from likely aspiration pna vs HCAP -ABG shows CO2 retention, pt on 3L O2 currently (on 2L usually at home) -CURB65 score is 3 (Age, confusion, BUN) = 14% 30 day mortality -HR 91 and WBC count 25 (2/4 SIRS+) with source of infection likely pulmonary etiology -NS @ 75 ml/hr -Vanco 1.25g once and Zosyn 3.375 g once (renally dosed) ordered -ID consulted -f/u flu swab, UAg for PNA, f/u cultures -oxygen supplementation to keep O2 sat >88% -aspiration precautions (keep head of bed elevated) -speech and swallow consult -JASON secondary to sepsis vs poor oral intake -check FeNa, but likely to be pre-renal in etiology as BUN/Cr ratio is greater than 20:1 -NS @ 75 ml/hr -Avoid nephrotoxic agents -Monitor BUN/Cr -RUE swelling -f/u RUE duplex ultrasound -HTN -currently normotensive, will hold home meds -Chrug-Eugenie -prednisone 20 mg po qd -Lymphoma -Mycophenolate 500 mg PO qd -COPD/Asthma -Duo-nebs q6h PRN for SOB/wheezing -Alzheimer's dementia -Donepezil 10 mg po qhs, Memantine 10 mg po bid -Anxiety -Lexapro 10 mg PO qd -Hx of hypothyroidism -f/u TSH -CAD -Lipitor 10 mg po qhs -Hx of PE/DVT -Xarelto 20 mg po qd -DVT ppx -on Xarelto 20 mg po qd -FEN -NS @ 75 ml/hr -monitor electrolytes -NPO except for meds as patient is currently altered -Dispo: Admit to m/s Visit type - Emergency Visit Emergency Visit: Yes ED Registration Date: 07/26/17 Care time: The patient presented to the Emergency Department on the above date and was hospitalized for further evaluation of their emergent condition. - New Patient This patient is new to me today: Yes Date on this admission: 07/26/17 - Critical Care Critical Care patient: No
[2017-07-26] MEDS ORDERED: PIPERACILLIN/TAZOB 3.375 GM/50 ML PRE-DOCKED IVPB ONE (16:17)
[2017-07-26] MEDS ORDERED: VANCOMYCIN 1,250 MG in DEXTROSE 5%-WATER - 250 ML IVPB ONE ×2 (16:30→23:30)
[2017-07-26] MEDS ORDERED: PIPERACILLIN/TAZOB 3.375 GM 3.375 GM in DEXTROSE 5%-WATER - 250 ML IVPB ONE (16:30)
[2017-07-26] MEDS ORDERED: PIPERACILLIN/TAZOB 3.375 GM 3.375 GM/50 ML BAG IVPB ONE (16:37)
[2017-07-26] MEDS: SODIUM CHLORIDE 1,000 ML IV SCH (16:37)
--- NOTE | 2017-07-26 16:44 | PN ---
Teaching Attending Note Name of Resident: Woody Segura ATTENDING PHYSICIAN STATEMENT I saw and evaluated the patient. I reviewed the resident's note and discussed the case with the resident. I agree with the resident's findings and plan as documented. information gathered from resident and chart as pt is unable to provide hx SUBJECTIVE:87 y/o F w/PMH of CAD, COPD/asthma (on home O2 2L), alzheimer's dementia, lymphoma, lung ca, HTN, GERD, hypothyroidism, chrug-coleman (on prednisone and mycophenolate), anxiety, PE presents to ER from [facility] (for rehab, normally lives in assisted living facility) for worsening lethargy and decreased appetite over the last 2-3 days. pt was discharged from [facility] on after 6 day hospitalization for sepsis from aspiration PNA and Flu and was d/ c on augmentin and Tamiflu. pt has no complaints but is very lethargic and unable to hold conversation which is different from pts baseline. OBJECTIVE: Last Vital Signs Temp Pulse Resp BP Pulse Ox 97.6 F 84 16 132/72 99 07/26/17 15:21 07/26/17 15:21 07/26/17 15:21 07/26/17 15:21 07/26/17 15:21 General lethargic. responsive to verbal stimuli CV S1 S2 + Lungs CTA anteriorly. poor air entry, no crackles Abdomen soft NT/ND Extremities RUE swollen not tender 2+ pulses, trace pitting edema B/L LE ASSESSMENT AND PLAN: 87 y/o F w/PMH of CAD, COPD/asthma (on home O2 2L), alzheimer's dementia, lymphoma, lung ca, HTN, GERD, hypothyroidism, churg-coleman (on prednisone), anxiety, PE presents to ER from [facility] (for rehab, normally lives in assisted living facility) for worsening lethargy and decreased appetite over the last 2-3 days 1. Sepsis due to aspiration PNA vs HCAP- Medicine admission. just complete course of augmentin. today is last day for Tamiflu will give here. start Vanco/ Zosyn for hospital acquired as was just discharged. CXR shows questionable R base infiltrate. awaiting official read. ID and [employer] consult, aspiration precautions, elevated HOB. check urine legionella, influenza, sputum cx, BCx 2. JASON- likely sepsis and dehydration. start NS. check urine lytes. avoid nephrotoxic agents 3. Acute hypoxic/hypercapnic respiratory failure- due to PNA. requiring higher oxygen requirements than at home. treatment as above. 4. RUE edema-has hx of DVT. check doppler to r/o DVT. on xarelto 5. CAD- no signs of ACS. cont asa, statin 6. Alzhemiers- appears to be more lethargic than baseline. on aricept, namenda. hold for now until mental status improves 7. Lymphoma- on mycophenolate 8. Lung ca 9. Hypothyroid- check TSH. not on synthroid? confirm 10. Churg coleman- cont prednisone 20mg 11. DVT ppx- on Xarelto
[2017-07-26] MEDS ORDERED: DONEPEZIL HCL 10 MG TABLET (FP) PO SCH (22:00)
[2017-07-26] MEDS ORDERED: MEMANTINE HCL 10 MG TABLET (FP) PO SCH (22:00)
[2017-07-26] MEDS: GABAPENTIN 300 MG CAPSULE (FP) PO SCH (23:28)
[2017-07-26] MEDS: ATORVASTATIN CA 10 MG TABLET (FP) PO SCH (23:28)
[2017-07-27 01:05] VITALS: BMI 24.7
[2017-07-27] MEDS: SODIUM CHLORIDE 1,000 ML IV SCH ×2 (01:20→18:11)
[2017-07-27 09:34] LABS: ALBUMIN 2.5 g/dl (3.4-5.0); ANION GAP 9 (8-16); BILIRUBIN,TOTAL 0.3 mg/dL (0.2-1.0); BLOOD UREA NITROGEN 53 mg/dL (7-18); CALCIUM 8.5 mg/dL (8.5-10.1); CHLORIDE 108 mmol/L (98-107); CO2 30 mmol/L (21-32); CREATININE 0.8 mg/dL (0.55-1.02); GLUCOSE,RANDOM 74 mg/dL (74-106); POTASSIUM 3.7 mmol/L (3.5-5.1); SGOT/AST 15 U/L (15-37); SGPT/ALT 20 U/L (12-78); SODIUM 147 mmol/L (136-145); TOT PROT 5.4 g/dl (6.4-8.2)
--- NOTE | 2017-07-27 09:38 | PN ---
Physical Exam: SUBJECTIVE: Patient seen and examined at bedside, awake and responsive denies any pain , denies any fever, chills, N/V/D/C. OBJECTIVE: Vital Signs Period Temp Pulse Resp BP Sys/[place] Pulse Ox Last 24 Hr 97.4 F-97.9 F 72-91 14-21 108-145/58-87 96-99 GENERAL: The patient is awake, alert, oriented to place and people but not year HEAD: Normal with no signs of trauma. EYES: sclera anicteric, conjunctiva clear. ENT: dry mucous membranes. NECK: supple. LUNGS: left base crackles,diminished breath sound at the bases, no wheezes, no accessory muscle use. HEART: Regular rate and rhythm, S1, S2 , 2/6 systolic murmur 2nd USB, rub or gallop. ABDOMEN: Obese ,Soft, nontender, nondistended, normoactive bowel sounds, no guarding, no rebound, EXTREMITIES: 2+ pulses, warm, well-perfused, right upper ext edema , left side echymoses. NEUROLOGICAL: no focal deficit. Normal speech, gait not observed. PSYCH: Normal mood, normal affect. SKIN: Warm, dry, no decubitus ulcer. Laboratory Results - last 24 hr 07/26/17 07/26/17 07/26/17 10:51 11:12 11:12 WBC 25.3 H D RBC 4.28 D Hgb 10.7 D Hct 36.5 D MCV 85.3 MCH 25.0 L MCHC 29.3 L RDW 19.2 H Plt Count 341 D MPV 8.7 Neutrophils % 89.5 H Lymphocytes % 5.1 L D Monocytes % 4.8 Eosinophils % 0.1 D Basophils % 0.5 PT with INR 20.90 H INR 1.85 H D PTT (Actin FS) 26.1 L Puncture Site ABG pH ABG pCO2 at Pt Temp ABG pO2 at Pt Temp ABG HCO3 ABG O2 Sat (Measured) ABG O2 Content ABG Base Excess Ricardo Test VBG pH POC VBG pCO2 POC VBG pO2 Mixed VBG HCO3 O2 Delivery Device Oxygen Flow Rate Mechanical Rate PEEP Sodium Potassium Chloride Carbon Dioxide Anion Gap BUN Creatinine Creat Clearance w eGFR POC Glucometer [id number] Random Glucose Lactic Acid Calcium Total Bilirubin AST ALT Alkaline Phosphatase Creatine Kinase Troponin I Total Protein Albumin Urine Color Urine Appearance Urine pH Ur Specific [place] Urine Protein Urine Glucose (UA) Urine Ketones Urine Blood Urine Nitrite Urine Bilirubin Urine Urobilinogen Ur Leukocyte Esterase Urine WBC (Auto) Urine RBC (Auto) Ur Epithelial Cells Urine Bacteria Hyaline Casts Urine Mucus Blood Type Antibody Screen 07/26/17 07/26/17 07/26/17 11:12 11:12 11:12 WBC RBC Hgb Hct MCV MCH MCHC RDW Plt Count MPV Neutrophils % Lymphocytes % Monocytes % Eosinophils % Basophils % PT with INR INR PTT (Actin FS) Puncture Site ABG pH ABG pCO2 at Pt Temp ABG pO2 at Pt Temp ABG HCO3 ABG O2 Sat (Measured) ABG O2 Content ABG Base Excess Ricardo Test VBG pH 7.37 POC VBG pCO2 62.5 H* POC VBG pO2 33.7 Mixed VBG HCO3 35.5 H O2 Delivery Device Oxygen Flow Rate Mechanical Rate PEEP Sodium 146 H Potassium 3.7 Chloride 104 Carbon Dioxide 32 Anion Gap 10 BUN 60 H D Creatinine 1.3 H Creat Clearance w eGFR 38.57 POC Glucometer Random Glucose 108 H Lactic Acid 1.1 Calcium 9.3 Total Bilirubin 0.3 AST 14 L ALT 25 Alkaline Phosphatase 67 Creatine Kinase 25 L Troponin I < 0.02 Total Protein 6.2 L Albumin 2.8 L Urine Color Urine Appearance Urine pH Ur Specific [place] Urine Protein Urine Glucose (UA) Urine Ketones Urine Blood Urine Nitrite Urine Bilirubin Urine Urobilinogen Ur Leukocyte Esterase Urine WBC (Auto) Urine RBC (Auto) Ur Epithelial Cells Urine Bacteria Hyaline Casts Urine Mucus Blood Type Antibody Screen 07/26/17 07/26/17 07/26/17 11:12 11:35 13:05 WBC RBC Hgb Hct MCV MCH MCHC RDW Plt Count MPV Neutrophils % Lymphocytes % Monocytes % Eosinophils % Basophils % PT with INR INR PTT (Actin FS) Puncture Site Left radial ABG pH 7.41 ABG pCO2 at Pt Temp 55.5 H ABG pO2 at Pt Temp 68.1 ABG HCO3 34.2 H ABG O2 Sat (Measured) 93.7 ABG O2 Content 13.1 L ABG Base Excess 8.6 H Ricardo Test Positive VBG pH POC VBG pCO2 POC VBG pO2 Mixed VBG HCO3 O2 Delivery Device Nasal cannula Oxygen Flow Rate 2 Mechanical Rate No PEEP 0.0 Sodium Potassium Chloride Carbon Dioxide Anion Gap BUN Creatinine Creat Clearance w eGFR POC Glucometer Random Glucose Lactic Acid Calcium Total Bilirubin AST ALT Alkaline Phosphatase Creatine Kinase Troponin I Total Protein Albumin Urine Color Yellow Urine Appearance Clear Urine pH 5.0 Ur Specific [place] 1.014 Urine Protein Negative Urine Glucose (UA) Negative Urine Ketones Negative Urine Blood Negative Urine Nitrite Negative Urine Bilirubin Negative Urine Urobilinogen Negative Ur Leukocyte Esterase Trace Urine WBC (Auto) 1 Urine RBC (Auto) None Ur Epithelial Cells Rare Urine Bacteria Rare Hyaline Casts 8 Urine Mucus Rare Blood Type A NEGATIVE Antibody Screen Negative 07/27/17 08:00 WBC RBC Hgb Hct MCV MCH MCHC RDW Plt Count MPV Neutrophils % Lymphocytes % Monocytes % Eosinophils % Basophils % PT with INR INR PTT (Actin FS) Puncture Site ABG pH ABG pCO2 at Pt Temp ABG pO2 at Pt Temp ABG HCO3 ABG O2 Sat (Measured) ABG O2 Content ABG Base Excess Ricardo Test VBG pH POC VBG pCO2 POC VBG pO2 Mixed VBG HCO3 O2 Delivery Device Oxygen Flow Rate Mechanical Rate PEEP Sodium 147 H Potassium 3.7 Chloride 108 H Carbon Dioxide 30 Anion Gap 9 BUN 53 H Creatinine 0.8 Creat Clearance w eGFR > 60 POC Glucometer Random Glucose 74 Lactic Acid Calcium 8.5 Total Bilirubin 0.3 AST 15 ALT 20 Alkaline Phosphatase Creatine Kinase Troponin I Total Protein 5.4 L Albumin 2.5 L Urine Color Urine Appearance Urine pH Ur Specific [place] Urine Protein Urine Glucose (UA) Urine Ketones Urine Blood Urine Nitrite Urine Bilirubin Urine Urobilinogen Ur Leukocyte Esterase Urine WBC (Auto) Urine RBC (Auto) Ur Epithelial Cells Urine Bacteria Hyaline Casts Urine Mucus Blood Type Antibody Screen Active Medications Generic Name Dose Route Start Last Admin Trade Name Freq PRN Reason Stop Dose Admin Aspirin 81 mg 07/27/17 10:00 Asa - PO DAILY [facility] Atorvastatin Calcium 10 mg 07/26/17 22:00 07/26/17 23:28 Lipitor - PO 10 mg HS [facility] Administration Escitalopram Oxalate 10 mg 07/27/17 10:00 Lexapro - PO DAILY [facility] Gabapentin 600 mg 07/26/17 22:00 07/26/17 23:28 Neurontin - PO 600 mg HS [facility] Administration Sodium Chloride 1,000 mls @ 75 mls/hr 07/26/17 16:15 07/27/17 01:20 Normal Saline - IV 75 mls/hr ASDIR [facility] Administration Mycophenolate Mofetil 500 mg 07/27/17 10:00 Cellcept - PO DAILY [facility] Prednisone 20 mg 07/27/17 10:00 Deltasone - PO DAILY [facility] Rivaroxaban 20 mg 07/27/17 10:00 Xarelto - PO DAILY [facility] CBC, BMP 07/26/17 11:12 07/27/17 08:00 CBC, BMP 07/27/17 09:40 07/27/17 08:00 Microbiology 07/26/17 11:12 Blood Culture - Preliminary Blood - Peripheral Venous NO GROWTH OBTAINED AFTER 24 HOURS, INCUBATION TO CONTINUE FOR 4 DAYS. 07/26/17 11:12 Blood Culture - Preliminary Blood - Peripheral Venous NO GROWTH OBTAINED AFTER 24 HOURS, INCUBATION TO CONTINUE FOR 4 DAYS. 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 Admitted for sepsis secondary to possible aspiration pna vs hcap. #Acute hypercapnic respiratory failure and altered mental status secondary sepsis from likely aspiration pna vs HCAP * ABG shows CO2 retention, pt on 3L O2 currently (on 2L usually at home) * CURB65 score is 3 (Age, confusion, BUN) = 14% 30 day mortality * HR 72-91 and WBC count 25 (2/4 SIRS+) with source of infection likely pulmonary etiology * NS @ 75 ml/hr * Vanco 1.25g once and Zosyn 3.375 g once (renally dosed) ordered in ED , continue with Zosyn , hold Vanco * ID consulted * flu swab -, UAg for PNA -, blood cultures - * oxygen supplementation to keep O2 sat >88% * aspiration precautions (keep head of bed elevated) * speech and swallow consulted , dysphagia whole diet with thin lequid * Ct chest negative for pneumonia * C.diff ordered -JASON secondary to sepsis vs poor oral intake * check FeNa, but likely to be pre-renal in etiology as BUN/Cr ratio is greater than 20:1 * NS @ 75 ml/hr * Avoid nephrotoxic agents * Monitor BUN/Cr * Urine NA, urine Cr * Creatine clerance 55.78 # Hypernatremia * NA 147 * free water defficit 4.6 L * Continue hydration * repeat BMP in AM #RUE swelling - RUE duplex ultrasound negative for DVT #HTN * currently normotensive, * Continue Deltiazim 240 mg po daily #Chrug-Eugenie * prednisone 20 mg po qd increased to 40 mg po daily #Lymphoma * hold Mycophenolate 500 mg PO qd in term of infection #COPD/Asthma * Duo-nebs q6h PRN for SOB/wheezing * Pulmonary on Board #Alzheimer's dementia * continue Donepezil 10 mg po qhs, Memantine 10 mg po bid #Anxiety * Continue Lexapro 10 mg PO qd #Hx of hypothyroidism * f/u TSH 4.85 #CAD * Continue Lipitor 10 mg po qhs #Hx of PE/DVT * Continue Xarelto 20 mg po qd #DVT ppx * on Xarelto 20 mg po qd -FEN -NS @ 75 ml/hr -monitor electrolytes -NPO except for meds as patient is currently altered # Dispo * Admit to med surg * # Code : DNR/DNI , will confirm with health care proxy. Visit type - Emergency Visit Emergency Visit: Yes ED Registration Date: 07/26/17 Care time: The patient presented to the Emergency Department on the above date and was hospitalized for further evaluation of their emergent condition. - New Patient This patient is new to me today: Yes Date on this admission: 07/27/17 - Critical Care Critical Care patient: No
[2017-07-27 09:43] LABS: ALK PHOS 54 U/L (45-117)
[2017-07-27] MEDS ORDERED: MYCOPHENOLATE MOFETIL 500 MG TABLET PO SCH (10:00)
[2017-07-27] MEDS ORDERED: predniSONE 20 MG TABLET (UD) PO SCH (10:00)
[2017-07-27 10:02] LABS: BASO % 0.1 % (0-2.0); EOS % 0.3 % (0-4.5); HEMATOCRIT 30.1 % (32.4-45.2); HEMOGLOBIN 8.9 GM/dL (10.7-15.3); LYMPH % 10.1 % (8-40); MCH 25.3 pg (25.7-33.7); MCHC 29.6 g/dl (32.0-36.0); MEAN CELL VOLUME 85.7 fl (80-96); MEAN PLT VOLUME 8.5 fl (7.5-11.1); MONO % 7.5 % (3.8-10.2); PLATELET COUNT 303 K/MM3 (134-434); RBC 3.51 M/mm3 (3.60-5.2); RDW 18.6 % (11.6-15.6); WHITE BLOOD COUNT 18.1 K/mm3 (4.0-10.0)
[2017-07-27 10:18] LABS: PROTHROMBIN TIME (PATIENT) 11.3 SEC (9.98-11.88)
[2017-07-27] MEDS ORDERED: PIPERACILLIN/TAZOB 2.25 GM/50 ML PREMIX BAG IVPB ONE (10:24)
--- NOTE | 2017-07-27 10:25 | CONSULT ---
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 Admitted for sepsis secondary to possible aspiration pna vs hcap Selected Entries 07/26/17 07/26/17 07/26/17 11:07 11:12 15:21 Temperature 97.6 F 97.6 F 97.6 F 07/26/17 07/26/17 07/27/17 23:00 23:38 06:00 Temperature 97.9 F 97.5 F L 97.9 F 07/27/17 09:25 Temperature 97.4 F L Laboratory Tests 07/26/17 07/27/17 11:12 09:40 WBC 25.3 H D 18.1 H THis is my first consult with Ms. Carter. 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 Cardiovascular: Yes: HTN, Hyperlipdemia, Pulmonary Hypertension Pulmonary: Yes: COPD, O2 Dependent, Other (thoracotomy due to mass) Heme/Onc: Yes: Anemia Psych: Yes: Anxiety, Panic Musculoskeletal: Yes: Other (h/o of foot drop) Rheumatology: Yes: Vasculitis - Past Surgical History Past Surgical History: Yes: Thoracotomy - Smoking History Smoking history: Unknown if ever smoked Have you smoked in the past 12 months: No Aproximately how many cigarettes per day: 0 If you are a former smoker, when did you quit?: 45 years ago - Alcohol/Substance Use Hx Alcohol Use: No - Social History ADL: Support Services History of Recent Travel: No History - Admission Reason For Visit: LETHARGY - Diagnostics X-ray: Report Reviewed - General Mental Status: Awake and Alert, Able to Follow Commands, Forgetful (Oriented to hospital only.), Vague Attention: Distractible Ability to Follow Directions: Fair Head/Neck Control: WFL - Hearing Hearing: Functional Speech Evaluation - Communication Primary Language: BURMESE Communication: Yes: Simple Responses Oral Expression Ability: Yes: Mild Impairment - Speech Production Apraxia: No Able to Make Needs Known: Yes: WNL Intelligibility: Yes: Mildly Impaired - Speech Characteristics Voice Loudness: Normal Voice Pitch: Yes: Normal Voice Phonatory-based Quality: Yes: Harsh Speech Clarity: < 100% Nasal Resonance: Normal Articulation: Yes: Precise Rate of Speech: Intact - Language/Auditory Comprehension Follows: Yes: 1 Stage Simple Commands Observation: Able to respond to yes/no queries: Yes, Comprehends Conversational Speech: Yes - Language/Verbal Expression Able to Respond to Simple Queries: Yes: Moderately Impaired ("I dont know") Able to Communicate Wants and Needs: Yes: WNL Functional Communication Status: Yes: WNL - Swallow Evaluation/Bedside Assessment Current Nutritional Intake: NPO, Other (meds taken with water without reported difficulty) Oral Secretions: Yes: WFL (dry, weak cough. Seems cogested. Unable to expectorate secretions.) Dentition: Yes: Adequate, Missing Teeth Facial Symmetry at Rest: Symmetrical Facial Symmetry on Retraction: Symmetrical Facial Movement: Controlled Against Resistance Opening: Weak Against Resistance Closing: Weak Pucker Lips: Weak Smile: Weak Lingual Movement: Symmetric (coated) Lingual Speed of Movement: Normal Lingual Movement Strgth Against Opposition: Reduced Lingual Movement Characteristics: Normal Velopharyngeal Movement: Normal Laryngeal Elevation: Impaired Laryngeal Movement: Reduced Excursion, Labored,delay initiation, Reduced Velocity Labial Seal: WFL Oral Prep Time: Increased Pocketing: Present Bilaterally Timing of Swallow: Delayed Coughing/Throat Clear: No Change in Voice: No Recommendations - Speech Evaluation, Impression/Plan Impression: Harsh voice. Weak cough. Unable to mobilize secretions. Swallow is delayed, labored, reduced laryngeal rate and excursion. No vocal changes or cough with 3 oz water test. Chewing is slow but efficient. - Disposition Discharge to: Shelter Facility - Dysphagia Impressions/Plan Swallowing Skills: Impaired Dysphagia Impressions: Mild Impairment, Moderate Impairment *Silent aspiration: cannot be R/O at bedside Dysphagia Treatment Plan: Small Bites, Chin Tuck/Down, Trial Feedings, Safe Rate , Elevate HOB during feed, Other (mouth care before meals. alternate solids with liquids. complete meal with liquid.) Recommendations: Modified Barium Swallow (if aspiration PNA suspected. Bedside evaluation demonstrates labored swallow but no overt signs of aspiration.) - Recommendations Diet Consistency: Dysphagia Whole Medication Administration: Whole with water Liquids: Thin Liquids Supplement: Other (as indicated)
[2017-07-27] MEDS ORDERED: PIPERACILLIN/TAZOB 2.25 GM 2.25 GM/50 ML BAG IVPB ONE (11:15)
[2017-07-27] MEDS: ALBUTEROL SO4 2.5/IPRATROPIUM 0.5 INH SOL 3 ML VIAL.NEB. NEB PRN (11:15)
[2017-07-27] MEDS ORDERED: PT OWN MED DRAWER 7, Y5N ONE ×2 (11:23→22:14)
[2017-07-27] MEDS: ASPIRIN 81 MG CHEWABLE TABLETS PO SCH (11:31)
[2017-07-27] MEDS: ESCITALOPRAM OXALATE 10 MG TABLET (FP) PO SCH (11:31)
--- NOTE | 2017-07-27 12:16 | PN ---
Progress Note (short form) - Note Progress Note: ID Consult dictated Possible health care aquired v. asp pneumonia Toxic metabolic encephalopathy/ OBS Leukocytosis Vaculitis on immunosuppressive meds Await c/s Empiric zosyn
--- NOTE | 2017-07-27 14:21 | CONS ---
INFECTIOUS DISEASE CONSULTATION DATE OF CONSULTATION: DATE OF DICTATION: 07/27/2017 REASON FOR CONSULTATION: The patient is an 87-year-old female who was evaluated for recurrent pneumonia. HISTORY OF PRESENT ILLNESS: The patient has had multiple hospital admissions in the past several months. She was recently hospitalized at [facility] from July 16 through July 21 for pneumonia. She had received a course of IV antibiotic therapy and was discharged to the [facility] facility on Augmentin. She now returns with altered mental status and anorexia. For the past 1-2 days, the patient has had poor oral intake and was noted to be poorly responsive. According to the notes, she is normally awake and interactive. However, she required noxious stimulus to arouse her. She was seen in the emergency room where she was noted to have a white blood cell count of 25,000. She was empirically treated with vancomycin and Zosyn. At the present time, she is awake, but she is confused. She offers no complaints. She denies any chest pain or shortness of breath. She is noted to have a moist cough. Chest x-ray showed some increased markings at the right base, possibly representing a new infiltrate. A CAT scan of the chest has been ordered. 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 PAST SURGICAL HISTORY: Status post right hip fracture and left lower lobe resection. ALLERGIES: LEVAQUIN (pruritus). SOCIAL HISTORY: She presently lives in a [facility] facility. Previously had been in an assisted living complex. She is a former smoker. No documented history of alcohol abuse. SYSTEMS REVIEW: Neurologic: Positive for altered mentation. Cardiac: Negative chest pain or palpitations. Respiratory: As per HPI. Gastrointestinal: Negative vomiting or diarrhea. Genitourinary: Negative for urinary tract infection. LABORATORY DATA: White count on admission 25,000, presently 18,000; neutrophils 89, lymphocytes 5, monocytes 4; hematocrit 30.1; platelet count 303. BUN 53, creatinine 0.8. Liver enzymes normal. Urinalysis: White cells 1. Chest x-ray as mentioned. PHYSICAL EXAMINATION: General: She is awake and alert at the present time. She is confused. She has a moist cough. She is in no acute respiratory distress. Vital Signs: Temperature 97.4; blood pressure 145/66; pulse 72, regular; respirations 20 per minute. HEENT: Sclerae are anicteric. Heart: Sounds S1, S2. Irregular with a 2/6 pansystolic murmur. Lungs: Rhonchi bilaterally. Abdomen: Soft. No tenderness elicited. No mass, rebound, or rigidity. Extremities: Negative for pedal edema. Positive for right upper extremity edema. IMPRESSION: 1. Possible healthcare-acquired versus aspiration pneumonia. 2. Toxic metabolic encephalopathy/dementia. 3. Leukocytosis. 4. History of vasculitis on immunosuppressive therapy. RECOMMENDATIONS: Await cultures and CAT scan of the chest. Empiric antibiotic coverage for healthcare-acquired pneumonia with Zosyn. Aspiration precautions. Will follow. Thank you for the kind referral. OTONIEL EMERY M.D. [id number]
[2017-07-27] MEDS: ALBUTEROL SO4 18 GM HFA INHALER IH SCH ×3 (14:43→20:20)
--- NOTE | 2017-07-27 16:13 | PN ---
Progress Note (short form) - Note Progress Note: PULMONARY CONSULTATION DICTATED 07/27/17 IMP ACUTE IN CHRONIC HYPOXEMIC/HYPERCAPNEIC RESPIRATORY FAILURE COPD ? PNEUMONIA ALTERED MENTAL STATUS JASON H/O LUNG CA S/P RESECTION H/O CHURGE MADDY ON CELLCEPT +STEROIDS DEMENTIA H/O BRACHIAL DVT PLAN ABX PER ID O2 NIPPV IF PT DEVELOPES INCREASED RESPIRATORY DISTRESS,WORSENING HYPERCAPNEA CULTURES IVF MONITOR FARHAD HORN Problem List - Problems (1) Acute on chronic respiratory failure with hypoxia and hypercapnia Code(s): J96.21 - ACUTE AND CHRONIC RESPIRATORY FAILURE WITH HYPOXIA; J96.22 - ACUTE AND CHRONIC RESPIRATORY FAILURE WITH HYPERCAPNIA (2) Lethargy Code(s): R53.83 - OTHER FATIGUE (3) COPD (chronic obstructive pulmonary disease) Code(s): J44.9 - CHRONIC OBSTRUCTIVE PULMONARY DISEASE, UNSPECIFIED (4) Immunocompromised state Code(s): D84.9 - IMMUNODEFICIENCY, UNSPECIFIED (6) Dementia Code(s): F03.90 - UNSPECIFIED DEMENTIA WITHOUT BEHAVIORAL DISTURBANCE Qualifiers: Dementia type: unspecified type Dementia behavioral disturbance: without behavioral disturbance Qualified Code(s): F03.90 - Unspecified dementia without behavioral disturbance (7) Immunocompromised patient Code(s): D84.9 - IMMUNODEFICIENCY, UNSPECIFIED (8) Altered mental status Code(s): R41.82 - ALTERED MENTAL STATUS, UNSPECIFIED
--- NOTE | 2017-07-27 16:41 | CONS ---
PULMONARY CONSULTATION DATE OF CONSULTATION: 07/27/2017 REFERRING PHYSICIAN: Maryan Goodwin MD HISTORY OF PRESENT ILLNESS: The patient is an 87-year-old white female known to me in previous hospitalization, with past medical history of advanced COPD on home O2, history of Churg-Eugenie maintained on prednisone and mycophenolate, atrial fibrillation, ASHD, pneumonia, non-Hodgkin lymphoma, lung CA status post resection, hypertension, hyperlipidemia, GERD, dementia, hypothyroidism, recently hospitalized at [facility] in early July secondary to COPD exacerbation, possible pneumonia, transferred to correction for short-term therapy, and was readmitted on July 26, with complaint of altered mental status and decreased p.o. intake. Apparently, for the past 1-2 days prior to admission, the patient had decreased p.o. intake and was noted to be poorly responsive by the family. Apparently, she began to require noxious stimulus to arouse her. Patient presented to the emergency room with the above. In the ER, she had a CAT scan of the chest performed, which revealed no evidence of acute infiltrates; no change from previous exam from 2017. She was evaluated by Infectious Disease and placed on broad-spectrum antibiotics. Of note is she had an arterial blood gas performed which revealed evidence of progressive hypercapnia. She was admitted to the floor. She was started on inhaled bronchodilators and antibiotic therapy. Patient has history of tobacco, quit years ago. There is no apparent history of occupational exposure to chemicals or fumes. She does have a history of a brachial DVT. PAST MEDICAL HISTORY: Again includes hypertension; pulmonary hypertension; advanced COPD on O2; history of thoracotomy secondary to lung CA, non-small cell type; Churg-Eugenie; dementia; history of MSSA; olecranon bursitis; and atrial fibrillation. REVIEW OF SYSTEMS: Unable to obtain at this time. CURRENT MEDICATIONS: Include Symbicort, prednisone, Zosyn, Xarelto, Neurontin, Lexapro, Bacid, Spiriva, albuterol, DuoNeb, Cardizem, MiraLAX, Salma-Colace, normal saline, Ditropan, Lipitor, aspirin, Os-Juan, saline flush, and Claritin. PHYSICAL EXAMINATION: General: The patient is an elderly white female, well developed, well nourished, awake, in no acute distress. Vital Signs: She is currently afebrile. Blood pressure is 126/70, respiratory rate is 18, O2 saturation is 96% on 3 L nasal cannula. HEENT: Normocephalic, atraumatic. Neck: Supple. Heart: Regular, S1, S2. Chest: A few scattered wheezes. Abdomen: Soft. Bowel sounds are positive. Extremities: No signs of edema. LABORATORY DATA: A venous blood gas showed pH 7.37, pCO2 of 62, a pO2 of 33, a bicarbonate of 35. Repeat arterial blood gas on 2 L nasal cannula showed pH of 7.41, pCO2 of 55, a pO2 of 68, a bicarbonate of 34, and a saturation of 93.7. WBC is 18.1, hemoglobin 8.9, hematocrit 30.1 with a platelet count of 303,000. INR is 1. Chemistries: BUN is 53, creatinine 0.8. Chest CT, as stated before, no acute change; chronic changes bilaterally. IMPRESSION: [id number] hypoxemic, hypercapnic respiratory failure secondary to: 1. Likely chronic obstructive pulmonary disease exacerbation. 2. Possible bronchitis, possible pneumonia, although not evidence on chest x-ray. 3. Acute kidney injury. 4. Altered mental status. 5. History of Churg-Eugenie. 6. History of lung cancer status post resection. 7. Dementia. PLAN: Antibiotics as per Infectious Disease, supplemental O2, obtain cultures, steroids, inhaled bronchodilators, IV fluids, monitor electrolytes. Follow up chest x-ray. LEATHA HORN M.D. [id number]
[2017-07-27] MEDS: RIVAROXABAN 20 MG TABLET PO SCH (16:48)
--- NOTE | 2017-07-27 17:31 | PN ---
Teaching Attending Note Name of Resident: Chidi Maguire ATTENDING PHYSICIAN STATEMENT I saw and evaluated the patient. I reviewed the resident's note and discussed the case with the resident. I agree with the resident's findings and plan as documented. SUBJECTIVE: No fever or chills, has no pain, does not remember why she is here OBJECTIVE: NAd , awake , alert , knows place, age , not year,, knows she lives at [facility]. CV: RRR, 2/6 Sm at RUSB Lungs : crackles at L base with decreased breath sounds at bases Abd: soft, obese, decreased BS , no TTP Ext : no edema No decub ulcers seen Assessment/Plan: 87 y/o lady with h/o CAD, COPD on home O2 and prednisone, Alzheimer's dementia , HTN, HLD, GERD, hypothyroidism, Churg Eugenie on mycophenalate, Anxiety, depression,and DVT on xarelto , recent admission for PNA who presented with resp distress wand was found to have sepsis 1- sepsis: could be due to aspiration PNA . UA is clean. CT of chest obtained with no acute change but a lot of scaring which can hid a PNA other possibilities to be considered ( c diff) - check c diff - zosyn - follow blood cx - flu swab neg 2- Acute hypercapnic resp failure. ddue to ? PNA . - cont Nebs - cont Abx 3- h/o Chrurg Eugenie, - hold mycophenolate in the setting of an infection. appreciate Pulm input on that - increase prednisone to 40 , due to increased caticolamine need in sepsis . - I don't think her vasculitis is active now 4- JASON: prerenal, improved with IVF. cont hydration 5- h/o DVT: cont xarelto per Living will DNR/DNI. will confirm with HCP
[2017-07-27] MEDS: PIPERACILLIN/TAZOB 3.375 GM 3.375 GM in DEXTROSE 5%-WATER - 100 ML IVPB SCH (18:12)
[2017-07-27] MEDS: DOCUSATE SODIUM 100 MG CAPSULE (FP) PO SCH (21:45)
[2017-07-27] MEDS: LACTOBACILLUS ACIDOPHILUS 1 EACH TAB (FP) PO SCH (22:39)
[2017-07-27] MEDS: ATORVASTATIN CA 10 MG TABLET (FP) PO SCH (22:39)
[2017-07-27] MEDS: GABAPENTIN 300 MG CAPSULE (FP) PO SCH (22:39)
[2017-07-27] MEDS: CALCIUM 500MG/VIT-D 200 UNITS COMBO TABLET (FP) PO SCH (22:39)
[2017-07-27] MEDS: SENNOSIDES/DOCUSATE COMBO (SENNA PLUS) TABLET (UD) PO SCH (22:39)
[2017-07-27] MEDS: BUDESONIDE/FORMETEROL FUMARATE 80/4.5 mcg INHALER IH SCH (23:00)
[2017-07-28] MEDS ORDERED: PT OWN MED DRAWER 7, Y5N ONE ×4 (02:36→18:41)
[2017-07-28] MEDS: PIPERACILLIN/TAZOB 3.375 GM 3.375 GM in DEXTROSE 5%-WATER - 100 ML IVPB SCH ×3 (02:39→18:47)
--- NOTE | 2017-07-28 06:04 | PN ---
Physical Exam: SUBJECTIVE: Patient seen and examined at bedside. more awake and oriented. denies any fever, chills, N/V/D/C. satirating 96 % on 2L o2 OBJECTIVE: Vital Signs Period Temp Pulse Resp BP Sys/Bahena Pulse Ox Last 24 Hr 97.4 F-98.7 F 72-80 20-20 99-145/55-70 98-99 GENERAL: The patient is awake, alert, oriented to place and people but not year HEAD: Normal with no signs of trauma. EYES: sclera anicteric, conjunctiva clear. ENT: dry mucous membranes. NECK: supple. LUNGS: left base crackles,diminished breath sound at the bases, no wheezes, no accessory muscle use. HEART: Regular rate and rhythm, S1, S2 , 2/6 systolic murmur 2nd RUSB, rub or gallop. ABDOMEN: Obese ,Soft, nontender, nondistended, normoactive bowel sounds, no guarding, no rebound, EXTREMITIES: 2+ pulses, warm, well-perfused, right upper ext edema , left side echymoses. NEUROLOGICAL: no focal deficit. Normal speech, gait not observed. PSYCH: Normal mood, normal affect. SKIN: Warm, dry, no decubitus ulcer. Laboratory Results - last 24 hr 07/27/17 07/27/17 07/27/17 08:00 09:40 09:40 WBC 18.1 H RBC 3.51 L Hgb 8.9 L D Hct 30.1 L D MCV 85.7 MCH 25.3 L MCHC 29.6 L RDW 18.6 H Plt Count 303 MPV 8.5 Neutrophils % 82.0 Lymphocytes % 10.1 D Monocytes % 7.5 Eosinophils % 0.3 D Basophils % 0.1 PT with INR 11.30 INR 1.00 D Sodium 147 H Potassium 3.7 Chloride 108 H Carbon Dioxide 30 Anion Gap 9 BUN 53 H Creatinine 0.8 Creat Clearance w eGFR > 60 Random Glucose 74 Calcium 8.5 Total Bilirubin 0.3 AST 15 ALT 20 Alkaline Phosphatase 54 Total Protein 5.4 L Albumin 2.5 L TSH 4.85 H Active Medications Generic Name Dose Route Start Last Admin Trade Name Freq PRN Reason Stop Dose Admin Albuterol Sulfate 1 - 2 puff 07/27/17 14:00 07/27/17 18:18 Ventolin Hfa Inhaler - IH 1 puff RQID BEVERLY Administration Albuterol/Ipratropium 1 amp 07/27/17 10:25 07/27/17 11:15 Duoneb - NEB 1 amp Q6H PRN Administration ASTHMA Aspirin 81 mg 07/27/17 10:00 07/27/17 11:31 Asa - PO 81 mg DAILY BEVERLY Administration Atorvastatin Calcium 10 mg 07/26/17 22:00 07/27/17 22:39 Lipitor - PO 10 mg HS BEVERLY Administration Budesonide/Formoterol Fumarate 1 puff 07/27/17 22:00 Symbicort 80/4.5mcg - IH BID BEVERLY Calcium Carbonate/Cholecalciferol 1 tab 07/27/17 22:00 07/27/17 22:39 Os-Juan 500+D - PO 1 tab BID BEVERLY Administration Diltiazem HCl 240 mg 07/27/17 11:00 07/27/17 11:31 Cardizem Cd - PO 240 mg DAILY BEVERLY Administration Docusate Sodium 200 mg 07/27/17 22:00 Colace - PO HS BEVERLY Escitalopram Oxalate 10 mg 07/27/17 10:00 07/27/17 11:31 Lexapro - PO 10 mg DAILY BEVERLY Administration Ferrous Sulfate 325 mg 07/28/17 10:00 Feosol - PO DAILY BEVERLY Gabapentin 600 mg 07/26/17 22:00 07/27/17 22:39 Neurontin - PO 600 mg HS BEVERLY Administration Sodium Chloride 1,000 mls @ 75 mls/hr 07/26/17 16:15 07/27/17 18:11 Normal Saline - IV 75 mls/hr ASDIR BEVERLY Administration Piperacillin Sod/Tazobactam 100 mls @ 200 mls/hr 07/27/17 18:00 07/28/17 02: 39 Sod 3.375 gm/ Dextrose IVPB 200 mls/hr Q8H-IV BEVERLY Administration Protocol Lactobacillus Acidophilus 1 tab 07/27/17 22:00 07/27/17 22:39 Bacid - PO 1 tab BID BEVERLY Administration Loratadine 10 mg 07/28/17 10:00 Claritin - PO DAILY BEVERLY Oxybutynin Chloride 5 mg 07/28/17 10:00 Ditropan - PO DAILY [facility] Polyethylene Glycol 17 gm 07/28/17 10:00 Miralax (For Daily Use) - PO DAILY [facility] Prednisone 40 mg 07/27/17 10:29 Deltasone - PO DAILY BEVERLY Rivaroxaban 20 mg 07/27/17 10:00 07/27/17 16:48 Xarelto - PO 20 mg DAILY BEVERLY Administration Senna/Docusate Sodium 2 tablet 07/27/17 22:00 07/27/17 22:39 Pericolace - PO 2 tablet HS BEEVRLY Administration Tiotropium [place] 1 puff 07/28/17 10:00 Spiriva - IH DAILY [facility] CBC, BMP 07/28/17 08:00 07/28/17 08:00 Microbiology 07/26/17 11:12 Blood - Peripheral Venous Blood Culture - Preliminary NO GROWTH OBTAINED AFTER 48 HOURS, INCUBATION TO CONTINUE FOR 3 DAYS. 07/26/17 11:12 Blood - Peripheral Venous Blood Culture - Preliminary NO GROWTH OBTAINED AFTER 48 HOURS, INCUBATION TO CONTINUE FOR 3 DAYS. Urine cx negative Legionella AG, Stertoccocus pneumonia ag negative 07/26/17 : [facility] Upper Ext : negative for DVT CXR 07/26 no acute process, 07/27 : chronic minimal bibasilar atelectasis. CT chest 07/27/2015: Negative for pneumonia or acute process, some chronic changes post surgical scars. 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 Admitted for sepsis secondary to possible aspiration pna vs hcap. #Acute hypercapnic respiratory failure secondary sepsis from likely aspiration pna * wbc trending down 13.6 * NS @ 75 ml/hr given , on no fluids now * Vanco 1.25g once and Zosyn 3.375 g once (renally dosed) ordered in ED , continue with Zosyn day 2 , hold Vanco * ID consulted * flu swab -, UAg for PNA -, blood cultures - * oxygen supplementation to keep O2 sat >88% * aspiration precautions (keep head of bed elevated) * speech and swallow consulted , dysphagia whole diet with thick lequid * Ct chest negative for pneumonia * F/u C.diff toxin and assays result -JASON secondary to sepsis vs poor oral intake * check FeNa, but likely to be pre-renal in etiology as BUN/Cr ratio is greater than 20:1 * NS @ 75 ml/hr * Avoid nephrotoxic agents * Monitor BUN/Cr * Urine NA, urine Cr * Creatine clerance 55.78 # Hypernatremia likely 2/2 dehydration and low oral intake * NA 147 ....>146 * free water defficit 4.6 L * encourage water oral intake * repeat BMP in AM #RUE swelling - RUE duplex ultrasound negative for DVT #HTN * currently normotensive, * Continue Deltiazim 240 mg po daily #Chrug-Eugenie * prednisone 20 mg po qd increased to 40 mg po daily #Lymphoma * hold Mycophenolate 500 mg PO qd in term of infection #COPD/Asthma * Duo-nebs q6h PRN for SOB/wheezing * Pulmonary on Board #Alzheimer's dementia * continue Donepezil 10 mg po qhs, Memantine 10 mg po bid * was altered on admission , improved with hydration and abx #Anxiety * Continue Lexapro 10 mg PO qd #Hx of hypothyroidism * TSH 4.85 * continue #CAD * Continue Lipitor 10 mg po qhs #Hx of PE/DVT * Continue Xarelto 20 mg po qd #DVT ppx * on Xarelto 20 mg po qd -FEN -on no fluids , NS @ 75 CC in ED -monitor electrolytes -NPO except for meds as patient is currently altered # Dispo * Admit to med surg * # Code : * DNR/DNI , will confirm with health care proxy.not able to reach out to them yet * F/u C.diff toxin and assays result Visit type - Emergency Visit Emergency Visit: Yes ED Registration Date: 07/26/17 Care time: The patient presented to the Emergency Department on the above date and was hospitalized for further evaluation of their emergent condition. - New Patient This patient is new to me today: No - Critical Care Critical Care patient: No
[2017-07-28] MEDS: ALBUTEROL SO4 18 GM HFA INHALER IH SCH ×4 (08:20→20:49)
[2017-07-28 08:48] LABS: BASO % 0.2 % (0-2.0); EOS % 0.4 % (0-4.5); HEMATOCRIT 29.5 % (32.4-45.2); HEMOGLOBIN 8.8 GM/dL (10.7-15.3); MCH 25.4 pg (25.7-33.7); MCHC 29.7 g/dl (32.0-36.0); MEAN CELL VOLUME 85.6 fl (80-96); MEAN PLT VOLUME 8.5 fl (7.5-11.1); MONO % 8.8 % (3.8-10.2); NEUT % 78.6 % (42.8-82.8); PLATELET COUNT 299 K/MM3 (134-434); RBC 3.45 M/mm3 (3.60-5.2); RDW 19.3 % (11.6-15.6); WHITE BLOOD COUNT 13.6 K/mm3 (4.0-10.0)
[2017-07-28 09:16] LABS: CHLORIDE 107 mmol/L (98-107); POTASSIUM 3.1 mmol/L (3.5-5.1); SODIUM 146 mmol/L (136-145)
[2017-07-28 09:25] LABS: ALBUMIN 2.5 g/dl (3.4-5.0); ALK PHOS 60 U/L (45-117); ANION GAP 5 (8-16); BILIRUBIN,TOTAL 0.4 mg/dL (0.2-1.0); BLOOD UREA NITROGEN 27 mg/dL (7-18); CALCIUM 8.8 mg/dL (8.5-10.1); CO2 34 mmol/L (21-32); CREATININE 0.6 mg/dL (0.55-1.02); GLUCOSE,RANDOM 72 mg/dL (74-106); MAGNESIUM 2.1 mg/dL (1.8-2.4); PHOSPHOROUS 2.2 mg/dL (2.5-4.9); SGOT/AST 13 U/L (15-37); SGPT/ALT 20 U/L (12-78); TOT PROT 5.4 g/dl (6.4-8.2)
[2017-07-28] MEDS: BUDESONIDE/FORMETEROL FUMARATE 80/4.5 mcg INHALER IH SCH ×2 (10:06→22:49)
[2017-07-28] MEDS: OXYBUTYNIN CHLORIDE 5 MG TABLET PO SCH (10:08)
[2017-07-28] MEDS: FERROUS SO4 325 MG TABLET (FP) PO SCH (10:08)
[2017-07-28] MEDS: LORATADINE 10 MG TABLET PO SCH (10:08)
[2017-07-28] MEDS: predniSONE 20 MG TABLET (UD) PO SCH (10:08)
[2017-07-28] MEDS: ASPIRIN 81 MG CHEWABLE TABLETS PO SCH (10:09)
[2017-07-28] MEDS: LACTOBACILLUS ACIDOPHILUS 1 EACH TAB (FP) PO SCH ×2 (10:09→22:46)
[2017-07-28] MEDS: RIVAROXABAN 20 MG TABLET PO SCH (10:10)
[2017-07-28] MEDS: ESCITALOPRAM OXALATE 10 MG TABLET (FP) PO SCH (10:10)
[2017-07-28] MEDS: CALCIUM 500MG/VIT-D 200 UNITS COMBO TABLET (FP) PO SCH ×2 (10:10→22:46)
[2017-07-28] MEDS: POLYETHYLENE GLYCOL 3350 119 GM BTL PO SCH (10:17)
[2017-07-28] MEDS: SODIUM CHLORIDE 1,000 ML IV SCH ×2 (10:17→17:15)
--- NOTE | 2017-07-28 13:03 | PN ---
Progress Note, AGRICULTURE SPECIALIST - Note Progress Note: Selected Entries 07/27/17 07/28/17 07/28/17 21:35 06:00 08:00 Breakfast Diet Tolerated Supper 0 Temperature 98.2 F 97.8 F 07/28/17 11:31 Breakfast 25% Diet Tolerated Poor Supper Temperature Laboratory Tests 07/26/17 07/27/17 07/28/17 11:12 09:40 08:00 WBC 25.3 H D 18.1 H 13.6 H Lethargic, needing frequent re-arousal. Possible aspiration with me on sip of water.Taking small amounts by mouth. Suggest diet downgrade to Dys puree, nectar thick liquid, meds given in applesause, magic cup, ensure compact. MBS Monday if more alert.
--- NOTE | 2017-07-28 15:00 | PN ---
Progress Note, Physician History of Present Illness: More awake and responsive but confused Afebrile WBC improved Breathing non-labored + cough noted - Current Medication List Current Medications: Active Medications Albuterol Sulfate (Ventolin Hfa Inhaler -) 1 - 2 puff IH RQID [facility] Last Admin: 07/28/17 12:48 Dose: 1 puff Albuterol/Ipratropium (Duoneb -) 1 amp NEB Q6H PRN PRN Reason: ASTHMA Last Admin: 07/27/17 11:15 Dose: 1 amp Aspirin (Asa -) 81 mg PO DAILY [facility] Last Admin: 07/28/17 10:09 Dose: 81 mg Atorvastatin Calcium (Lipitor -) 10 mg PO HS [facility] Last Admin: 07/27/17 22:39 Dose: 10 mg Budesonide/Formoterol Fumarate (Symbicort 80/4.5mcg -) 1 puff IH BID [facility] Last Admin: 07/28/17 10:06 Dose: 1 puff Calcium Carbonate/Cholecalciferol (Os-Juan 500+D -) 1 tab PO BID [facility] Last Admin: 07/28/17 10:10 Dose: 1 tab Diltiazem HCl (Cardizem Cd -) 240 mg PO DAILY [facility] Last Admin: 07/28/17 10:09 Dose: 240 mg Docusate Sodium (Colace -) 200 mg PO HS [facility] Last Admin: 07/27/17 21:45 Dose: 200 mg Escitalopram Oxalate (Lexapro -) 10 mg PO DAILY [facility] Last Admin: 07/28/17 10:10 Dose: 10 mg Ferrous Sulfate (Feosol -) 325 mg PO DAILY [facility] Last Admin: 07/28/17 10:08 Dose: 325 mg Gabapentin (Neurontin -) 600 mg PO HS [facility] Last Admin: 07/27/17 22:39 Dose: 600 mg Sodium Chloride (Normal Saline -) 1,000 mls @ 75 mls/hr IV ASDIR [facility] Last Admin: 07/28/17 10:17 Dose: 75 mls/hr Piperacillin Sod/Tazobactam (Sod 3.375 gm/ Dextrose) 100 mls @ 200 mls/hr IVPB Q8H-IV [facility] PRN Reason: Protocol Last Admin: 07/28/17 10:07 Dose: 200 mls/hr Lactobacillus Acidophilus (Bacid -) 1 tab PO BID [facility] Last Admin: 07/28/17 10:09 Dose: 1 tab Loratadine (Claritin -) 10 mg PO DAILY [facility] Last Admin: 07/28/17 10:08 Dose: 10 mg Oxybutynin Chloride (Ditropan -) 5 mg PO DAILY [facility] Last Admin: 07/28/17 10:08 Dose: 5 mg Polyethylene Glycol (Miralax (For Daily Use) -) 17 gm PO DAILY [facility] Last Admin: 07/28/17 10:17 Dose: 17 grams Prednisone (Deltasone -) 40 mg PO DAILY [facility] Last Admin: 07/28/17 10:08 Dose: 40 mg Rivaroxaban (Xarelto -) 20 mg PO DAILY [facility] Last Admin: 07/28/17 10:10 Dose: 20 mg Senna/Docusate Sodium (Pericolace -) 2 tablet PO HS [facility] Last Admin: 07/27/17 22:39 Dose: 2 tablet Tiotropium [place] (Spiriva -) 1 puff IH DAILY [facility] - Objective Vital Signs: Vital Signs Temperature 98.1 F 07/28/17 14:46 Pulse Rate 80 07/28/17 14:46 Respiratory Rate 18 07/28/17 08:00 Blood Pressure 105/60 07/28/17 14:46 O2 Sat by Pulse Oximetry (%) 99 07/28/17 09:00 Constitutional: Yes: No Distress Eyes: Yes: Conjunctiva Clear Cardiovascular: Yes: Regular Rate and Rhythm, S1, S2 Respiratory: Yes: Rhonchi Gastrointestinal: Yes: Normal Bowel Sounds, Soft. No: Tenderness Edema: No Labs: CBC, BMP 07/28/17 08:00 07/28/17 08:00 INR, PTT INR 1.00 (0.82-1.09) D 07/27/17 09:40 Assessment/Plan Pneumonia Leukocytosis- improved Toxic metabolic encephalopathy- improved Continue zosyn
[2017-07-28] MEDS ORDERED: POTASSIUM PHOSPHATE 20 MM in DEXTROSE 5%-WATER - 250 ML IVPB ONE (15:30)
--- NOTE | 2017-07-28 16:22 | PN ---
Progress Note (short form) - Note Progress Note: PULMONARY AWAKE/ALERT APPEARS STABLE ANICTERIC DISTANT BREATH SOUNDS S1S2 RSR BS+ NO EDEMA LABS/MEDS/NOTES/CT CHEST/MICRO REVIEWED IMP ACUTE IN CHRONIC HYPOXEMIC/HYPERCAPNEIC RESPIRATORY FAILURE COPD ? PNEUMONIA ALTERED MENTAL STATUS JASON H/O LUNG CA S/P RESECTION H/O CHURGE MADDY ON CELLCEPT +STEROIDS DEMENTIA H/O BRACHIAL DVT PLAN ABX PER ID O2 NIPPV IF NEEDED IVF MONITOR FARHAD FITZPATRICK MD
[2017-07-28] MEDS: TIOTROPIUM BROMIDE 18 MCG/INH (DEVICE W/ 5 CAPSULES) IH SCH (17:16)
--- NOTE | 2017-07-28 19:35 | PN ---
Teaching Attending Note Name of Resident: Chidi Maguire ATTENDING PHYSICIAN STATEMENT I saw and evaluated the patient. I reviewed the resident's note and discussed the case with the resident. I agree with the resident's findings and plan as documented. SUBJECTIVE: No fever or chills . 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 UA is clean. - check c diff if stooling - zosyn - follow blood cx 2- Acute hypercapnic resp failure. due to ? PNA . - cont Nebs - cont Abx 3- h/o Chrurg Eugenie, - hold mycophenolate in the setting of an infection. 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 cont hydration 5- h/o DVT: cont xarelto could not reach family to confirm DNR/DNI
[2017-07-28] MEDS: ALBUTEROL SO4 2.5/IPRATROPIUM 0.5 INH SOL 3 ML VIAL.NEB. NEB PRN (20:28)
[2017-07-28] MEDS: ATORVASTATIN CA 10 MG TABLET (FP) PO SCH (22:46)
[2017-07-28] MEDS: DOCUSATE SODIUM 100 MG CAPSULE (FP) PO SCH (22:46)
[2017-07-28] MEDS: SENNOSIDES/DOCUSATE COMBO (SENNA PLUS) TABLET (UD) PO SCH (22:46)
[2017-07-28] MEDS: GABAPENTIN 300 MG CAPSULE (FP) PO SCH (22:46)
[2017-07-29] MEDS: PIPERACILLIN/TAZOB 3.375 GM 3.375 GM in DEXTROSE 5%-WATER - 100 ML IVPB SCH ×2 (02:55→09:52)
[2017-07-29] MEDS ORDERED: PT OWN MED DRAWER 7, Y5N ONE ×2 (03:17→09:52)
[2017-07-29] MEDS: SODIUM CHLORIDE 1,000 ML IV SCH ×2 (06:27→17:34)
[2017-07-29] MEDS: LACTOBACILLUS ACIDOPHILUS 1 EACH TAB (FP) PO SCH ×2 (09:47→21:58)
[2017-07-29] MEDS: ESCITALOPRAM OXALATE 10 MG TABLET (FP) PO SCH (09:47)
[2017-07-29] MEDS: predniSONE 20 MG TABLET (UD) PO SCH (09:47)
[2017-07-29] MEDS: CALCIUM 500MG/VIT-D 200 UNITS COMBO TABLET (FP) PO SCH ×2 (09:47→21:59)
[2017-07-29] MEDS: FERROUS SO4 325 MG TABLET (FP) PO SCH (09:47)
[2017-07-29] MEDS: OXYBUTYNIN CHLORIDE 5 MG TABLET PO SCH (09:47)
[2017-07-29] MEDS: LORATADINE 10 MG TABLET PO SCH (09:47)
[2017-07-29] MEDS: ASPIRIN 81 MG CHEWABLE TABLETS PO SCH (09:47)
[2017-07-29] MEDS: POLYETHYLENE GLYCOL 3350 119 GM BTL PO SCH (09:48)
[2017-07-29] MEDS: TIOTROPIUM BROMIDE 18 MCG/INH (DEVICE W/ 5 CAPSULES) IH SCH (09:48)
[2017-07-29] MEDS: ALBUTEROL SO4 18 GM HFA INHALER IH SCH ×4 (09:48→21:00)
[2017-07-29] MEDS: BUDESONIDE/FORMETEROL FUMARATE 80/4.5 mcg INHALER IH SCH ×2 (09:49→21:59)
[2017-07-29] MEDS: RIVAROXABAN 20 MG TABLET PO SCH (09:52)
[2017-07-29 10:25] LABS: BASO % 0.3 % (0-2.0); EOS % 0.3 % (0-4.5); HEMATOCRIT 28.9 % (32.4-45.2); HEMOGLOBIN 8.8 GM/dL (10.7-15.3); LYMPH % 14.7 % (8-40); MCH 25.6 pg (25.7-33.7); MCHC 30.2 g/dl (32.0-36.0); MEAN CELL VOLUME 84.6 fl (80-96); MEAN PLT VOLUME 8.3 fl (7.5-11.1); MONO % 11.2 % (3.8-10.2); NEUT % 73.5 % (42.8-82.8); PLATELET COUNT 301 K/MM3 (134-434); RBC 3.42 M/mm3 (3.60-5.2); RDW 18.3 % (11.6-15.6); WHITE BLOOD COUNT 12.6 K/mm3 (4.0-10.0)
--- NOTE | 2017-07-29 11:04 | PN ---
Progress Note (short form) - Note Progress Note: PULMONARY AWAKE/ALERT APPEARS STABLE ANICTERIC/AFEBRILE DISTANT BREATH SOUNDS S1S2 RSR BS+ NO EDEMA LABS/MEDS/NOTES/CT CHEST/MICRO REVIEWED IMP ACUTE IN CHRONIC HYPOXEMIC/HYPERCAPNEIC RESPIRATORY FAILURE COPD PNEUMONIA ALTERED MENTAL STATUS JASON H/O LUNG CA S/P RESECTION H/O CHURGE MADDY ON CELLCEPT +STEROIDS DEMENTIA H/O BRACHIAL DVT PLAN ABX PER ID O2 NIPPV IF NEEDED IVF MONITOR LYTES AC CELLCEPT HELD R NANETTE SHIRLEY
[2017-07-29 11:09] LABS: ALBUMIN 2.5 g/dl (3.4-5.0); ANION GAP 6 (8-16); BLOOD UREA NITROGEN 19 mg/dL (7-18); CALCIUM 8.3 mg/dL (8.5-10.1); CHLORIDE 104 mmol/L (98-107); CO2 34 mmol/L (21-32); GLUCOSE,RANDOM 91 mg/dL (74-106); POTASSIUM 3.2 mmol/L (3.5-5.1); SODIUM 144 mmol/L (136-145)
[2017-07-29 11:15] LABS: ALK PHOS 55 U/L (45-117); BILIRUBIN,TOTAL 0.5 mg/dL (0.2-1.0); CREATININE 0.5 mg/dL (0.55-1.02); SGOT/AST 14 U/L (15-37); SGPT/ALT 19 U/L (12-78); TOT PROT 5.4 g/dl (6.4-8.2)
--- NOTE | 2017-07-29 11:30 | PN ---
Progress Note, Physician History of Present Illness: Awake and responsive but confused Afebrile WBC improved Breathing non-labored - Current Medication List Current Medications: Active Medications Albuterol Sulfate (Ventolin Hfa Inhaler -) 1 - 2 puff IH RQID [facility] Last Admin: 07/29/17 09:48 Dose: 1 puff Albuterol/Ipratropium (Duoneb -) 1 amp NEB Q6H PRN PRN Reason: ASTHMA Last Admin: 07/28/17 20:28 Dose: 1 amp Aspirin (Asa -) 81 mg PO DAILY [facility] Last Admin: 07/29/17 09:47 Dose: 81 mg Atorvastatin Calcium (Lipitor -) 10 mg PO HS [facility] Last Admin: 07/28/17 22:46 Dose: 10 mg Budesonide/Formoterol Fumarate (Symbicort 80/4.5mcg -) 1 puff IH BID [facility] Last Admin: 07/29/17 09:49 Dose: 1 puff Calcium Carbonate/Cholecalciferol (Os-Juan 500+D -) 1 tab PO BID [facility] Last Admin: 07/29/17 09:47 Dose: 1 tab Diltiazem HCl (Cardizem Cd -) 240 mg PO DAILY [facility] Last Admin: 07/29/17 09:47 Dose: 240 mg Docusate Sodium (Colace -) 200 mg PO HS [facility] Last Admin: 07/28/17 22:46 Dose: 200 mg Escitalopram Oxalate (Lexapro -) 10 mg PO DAILY [facility] Last Admin: 07/29/17 09:47 Dose: 10 mg Ferrous Sulfate (Feosol -) 325 mg PO DAILY [facility] Last Admin: 07/29/17 09:47 Dose: 325 mg Gabapentin (Neurontin -) 600 mg PO HS [facility] Last Admin: 07/28/17 22:46 Dose: 600 mg Sodium Chloride (Normal Saline -) 1,000 mls @ 75 mls/hr IV ASDIR [facility] Last Admin: 07/29/17 06:27 Dose: 75 mls/hr Piperacillin Sod/Tazobactam (Sod 3.375 gm/ Dextrose) 100 mls @ 200 mls/hr IVPB Q8H-IV [facility] PRN Reason: Protocol Last Admin: 07/29/17 09:52 Dose: 200 mls/hr Lactobacillus Acidophilus (Bacid -) 1 tab PO BID [facility] Last Admin: 07/29/17 09:47 Dose: 1 tab Loratadine (Claritin -) 10 mg PO DAILY [facility] Last Admin: 07/29/17 09:47 Dose: 10 mg Oxybutynin Chloride (Ditropan -) 5 mg PO DAILY [facility] Last Admin: 07/29/17 09:47 Dose: 5 mg Polyethylene Glycol (Miralax (For Daily Use) -) 17 gm PO DAILY [facility] Last Admin: 07/29/17 09:48 Dose: 17 grams Prednisone (Deltasone -) 40 mg PO DAILY [facility] Last Admin: 07/29/17 09:47 Dose: 40 mg Rivaroxaban (Xarelto -) 20 mg PO DAILY [facility] Last Admin: 07/29/17 09:52 Dose: 20 mg Senna/Docusate Sodium (Pericolace -) 2 tablet PO HS [facility] Last Admin: 07/28/17 22:46 Dose: 2 tablet Tiotropium [place] (Spiriva -) 1 puff IH DAILY [facility] Last Admin: 07/29/17 09:48 Dose: 1 puff - Objective Vital Signs: Vital Signs Temperature 98 F 07/29/17 10:46 Pulse Rate 73 07/29/17 10:46 Respiratory Rate 18 07/29/17 10:46 Blood Pressure 138/72 07/29/17 10:46 O2 Sat by Pulse Oximetry (%) 98 07/29/17 10:48 Constitutional: Yes: No Distress Eyes: Yes: Conjunctiva Clear Cardiovascular: Yes: Regular Rate and Rhythm, S1, S2 Respiratory: Yes: Rhonchi Gastrointestinal: Yes: Normal Bowel Sounds, Soft. No: Tenderness Edema: No Labs: CBC, BMP 07/29/17 10:15 07/29/17 10:15 INR, PTT INR 1.00 (0.82-1.09) D 07/27/17 09:40 Assessment/Plan Pneumonia Leukocytosis- improved Toxic metabolic encephalopathy- improved Substitute po Augmentin 875mg po bid 7d
--- NOTE | 2017-07-29 15:59 | PN ---
Physical Exam: SUBJECTIVE: Patient has no complaints and no acute events overnight per nurse. OBJECTIVE: Vital Signs Period Temp Pulse Resp BP Sys/[place] Pulse Ox Last 24 Hr 97.8 F-98.7 F 70-80 18-20 117-156/59-83 98-99 GENERAL: The patient is awake, alert, but not oriented to time and place HEAD: Normal with no signs of trauma. EYES: sclera anicteric, conjunctiva clear. ENT: dry mucous membranes. NECK: supple. LUNGS: left base crackles,diminished breath sound at the bases, no wheezes, no accessory muscle use. HEART: Regular rate and rhythm, S1, S2 , 2/6 systolic murmur 2nd RUSB, rub or gallop. ABDOMEN: Obese ,Soft, nontender, nondistended, normoactive bowel sounds, no guarding, no rebound, EXTREMITIES: 2+ pulses, warm, well-perfused, right upper ext edema , left side echymoses. NEUROLOGICAL: no focal deficit. Normal speech, gait not observed. PSYCH: Normal mood, normal affect. SKIN: Warm, dry, no decubitus ulcer. Laboratory Results - last 24 hr 07/29/17 07/29/17 10:15 10:15 WBC 12.6 H RBC 3.42 L Hgb 8.8 L Hct 28.9 L MCV 84.6 MCH 25.6 L MCHC 30.2 L RDW 18.3 H Plt Count 301 MPV 8.3 Neutrophils % 73.5 Lymphocytes % 14.7 D Monocytes % 11.2 H Eosinophils % 0.3 Basophils % 0.3 Sodium 144 Potassium 3.2 L Chloride 104 Carbon Dioxide 34 H Anion Gap 6 L BUN 19 H Creatinine 0.5 L Creat Clearance w eGFR > 60 Random Glucose 91 Calcium 8.3 L Phosphorus 2.0 L Magnesium 2.0 Total Bilirubin 0.5 D AST 14 L ALT 19 Alkaline Phosphatase 55 Total Protein 5.4 L Albumin 2.5 L Active Medications Generic Name Dose Route Start Last Admin Trade Name Freq PRN Reason Stop Dose Admin Albuterol Sulfate 1 - 2 puff 07/27/17 14:00 07/29/17 11:56 Ventolin Hfa Inhaler - IH 1 puff RQID [facility] Administration Albuterol/Ipratropium 1 amp 07/27/17 10:25 07/28/17 20:28 Duoneb - NEB 1 amp Q6H PRN Administration ASTHMA Amoxicillin/Clavulanate Potassium 1 tab 07/29/17 17:30 Augmentin - 875mg Tablet PO BID@0800,1730 [facility] Aspirin 81 mg 07/27/17 10:00 07/29/17 09:47 Asa - PO 81 mg DAILY [facility] Administration Atorvastatin Calcium 10 mg 07/26/17 22:00 07/28/17 22:46 Lipitor - PO 10 mg HS [facility] Administration Budesonide/Formoterol Fumarate 1 puff 07/27/17 22:00 07/29/17 09:49 Symbicort 80/4.5mcg - IH 1 puff BID [facility] Administration Calcium Carbonate/Cholecalciferol 1 tab 07/27/17 22:00 07/29/17 09:47 Os-Juan 500+D - PO 1 tab BID [facility] Administration Diltiazem HCl 240 mg 07/27/17 11:00 07/29/17 09:47 Cardizem Cd - PO 240 mg DAILY [facility] Administration Docusate Sodium 200 mg 07/27/17 22:00 07/28/17 22:46 Colace - PO 200 mg HS [facility] Administration Escitalopram Oxalate 10 mg 07/27/17 10:00 07/29/17 09:47 Lexapro - PO 10 mg DAILY [facility] Administration Ferrous Sulfate 325 mg 07/28/17 10:00 07/29/17 09:47 Feosol - PO 325 mg DAILY [facility] Administration Gabapentin 600 mg 07/26/17 22:00 07/28/17 22:46 Neurontin - PO 600 mg HS [facility] Administration Sodium Chloride 1,000 mls @ 75 mls/hr 07/26/17 16:15 07/29/17 06:27 Normal Saline - IV 75 mls/hr ASDIR [facility] Administration Lactobacillus Acidophilus 1 tab 07/27/17 22:00 07/29/17 09:47 Bacid - PO 1 tab BID [facility] Administration Loratadine 10 mg 07/28/17 10:00 07/29/17 09:47 Claritin - PO 10 mg DAILY [facility] Administration Oxybutynin Chloride 5 mg 07/28/17 10:00 07/29/17 09:47 Ditropan - PO 5 mg DAILY [facility] Administration Polyethylene Glycol 17 gm 07/28/17 10:00 07/29/17 09:48 Miralax (For Daily Use) - PO 17 grams DAILY [facility] Administration Prednisone 40 mg 07/27/17 10:29 07/29/17 09:47 Deltasone - PO 40 mg DAILY [facility] Administration Rivaroxaban 20 mg 07/27/17 10:00 07/29/17 09:52 Xarelto - PO 20 mg DAILY [facility] Administration Senna/Docusate Sodium 2 tablet 07/27/17 22:00 07/28/17 22:46 Pericolace - PO 2 tablet HS [facility] Administration Tiotropium [place] 1 puff 07/28/17 10:00 07/29/17 09:48 Spiriva - IH 1 puff DAILY [facility] Administration ASSESSMENT/PLAN: 87 y/o F w/PMH of CAD, COPD/asthma (on home O2 2L), alzheimer's dementia, lymphoma, lung ca, HTN, GERD, hypothyroidism, chrug-eugenie (on prednisone and mycophenolate), anxiety, PE presents to ER from [facility] (for rehab, normally lives in assisted living facility) for worsening lethargy and decreased appetite over the last 2-3 days. Admitted for sepsis secondary to possible aspiration pna vs hcap. #Acute hypercapnic respiratory failure secondary sepsis from likely aspiration pna * Improving: afrebile, WBC trending down * abx transitioned to PO augmentin * Cont. IVF 75cc/hr # JASON secondary to sepsis vs poor oral intake * Resolved # Hypernatremia likely 2/2 dehydration and low oral intake * Resolved #RUE swelling - RUE duplex ultrasound negative for DVT #HTN * currently normotensive, * Continue Deltiazim 240 mg po daily #Chrug-Eugenie * Cont. predisone 40 mg po daily #Lymphoma * hold Mycophenolate 500 mg PO qd in term of infection #COPD/Asthma * Duo-nebs q6h PRN for SOB/wheezing * Pulmonary on Board #Alzheimer's dementia * continue Donepezil 10 mg po qhs, Memantine 10 mg po bid * was altered on admission , improved with hydration and abx #Anxiety * Continue Lexapro 10 mg PO qd #Hx of hypothyroidism * TSH 4.85 * continue #CAD * Continue Lipitor 10 mg po qhs #Hx of PE/DVT * Continue Xarelto 20 mg po qd #DVT ppx * on Xarelto 20 mg po qd -FEN -NS @ 75 CC in ED -monitor electrolytes -Puree diet # Dispo * Family denies greer, Awaiting insurance auth for their choice of NH * Anticipate discharge on monday Visit type - Emergency Visit Emergency Visit: No - New Patient This patient is new to me today: No - Critical Care Critical Care patient: No
--- NOTE | 2017-07-29 16:37 | PN ---
Teaching Attending Note Name of Resident: Macario Dietz ATTENDING PHYSICIAN STATEMENT I saw and evaluated the patient. I reviewed the resident's note and discussed the case with the resident. I agree with the resident's findings and plan as documented. SUBJECTIVE: has no fever or chills, has no abd pain, deneis any SOB. No events over night OBJECTIVE: NAD , knows her name, age and location . 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 - switch to po abx. appreciate ID help - follow blood cx 2- Acute hypercapnic resp failure. due to PNA . - cont Nebs - cont Abx 3- h/o Chrurg Eugenie, - hold mycophenolate due ot infection. will resume at dc - cont prednisone . 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 cont hydration 5- h/o DVT: cont xarelto could not reach family to confirm DNR/DNI
[2017-07-29] MEDS ORDERED: POTASSIUM PHOSPHATE 15 MM in SODIUM CHLORIDE 250 ML IVPB ONE (17:00)
[2017-07-29] MEDS: AMOX TR/POT CLAV 875MG/125MG TABLETS (FP) PO SCH (17:34)
[2017-07-29] MEDS: GABAPENTIN 300 MG CAPSULE (FP) PO SCH (21:58)
[2017-07-29] MEDS: SENNOSIDES/DOCUSATE COMBO (SENNA PLUS) TABLET (UD) PO SCH (21:58)
[2017-07-29] MEDS: DOCUSATE SODIUM 100 MG CAPSULE (FP) PO SCH (21:58)
[2017-07-29] MEDS: ATORVASTATIN CA 10 MG TABLET (FP) PO SCH (21:59)
[2017-07-30] MEDS: SODIUM CHLORIDE 1,000 ML IV SCH ×2 (01:00→14:19)
[2017-07-30] MEDS: AMOX TR/POT CLAV 875MG/125MG TABLETS (FP) PO SCH ×2 (08:25→17:20)
[2017-07-30] MEDS: ALBUTEROL SO4 18 GM HFA INHALER IH SCH ×4 (08:25→21:44)
[2017-07-30 08:26] LABS: HEMATOCRIT 30.2 % (32.4-45.2); MCH 25.4 pg (25.7-33.7); MCHC 29.9 g/dl (32.0-36.0); MEAN CELL VOLUME 84.9 fl (80-96); MEAN PLT VOLUME 8.7 fl (7.5-11.1); PLATELET COUNT 304 K/MM3 (134-434); RBC 3.56 M/mm3 (3.60-5.2); RDW 19.3 % (11.6-15.6); WHITE BLOOD COUNT 13.2 K/mm3 (4.0-10.0)
[2017-07-30 08:49] LABS: ANION GAP 5 (8-16); BLOOD UREA NITROGEN 15 mg/dL (7-18); CALCIUM 8.2 mg/dL (8.5-10.1); CHLORIDE 103 mmol/L (98-107); CO2 33 mmol/L (21-32); CREATININE 0.6 mg/dL (0.55-1.02); GLUCOSE,RANDOM 81 mg/dL (74-106); MAGNESIUM 1.9 mg/dL (1.8-2.4); PHOSPHOROUS 2.1 mg/dL (2.5-4.9); POTASSIUM 3.1 mmol/L (3.5-5.1); SODIUM 141 mmol/L (136-145)
[2017-07-30] MEDS ORDERED: PT OWN MED DRAWER 7, Y5N ONE (10:03)
[2017-07-30] MEDS: FERROUS SO4 325 MG TABLET (FP) PO SCH (10:05)
[2017-07-30] MEDS: LACTOBACILLUS ACIDOPHILUS 1 EACH TAB (FP) PO SCH ×2 (10:05→21:42)
[2017-07-30] MEDS: LORATADINE 10 MG TABLET PO SCH (10:05)
[2017-07-30] MEDS: RIVAROXABAN 20 MG TABLET PO SCH (10:05)
[2017-07-30] MEDS: ASPIRIN 81 MG CHEWABLE TABLETS PO SCH (10:05)
[2017-07-30] MEDS: predniSONE 20 MG TABLET (UD) PO SCH (10:05)
[2017-07-30] MEDS: ESCITALOPRAM OXALATE 10 MG TABLET (FP) PO SCH (10:05)
[2017-07-30] MEDS: CALCIUM 500MG/VIT-D 200 UNITS COMBO TABLET (FP) PO SCH ×2 (10:06→21:42)
[2017-07-30] MEDS: POLYETHYLENE GLYCOL 3350 119 GM BTL PO SCH (10:06)
[2017-07-30] MEDS: BUDESONIDE/FORMETEROL FUMARATE 80/4.5 mcg INHALER IH SCH ×2 (10:06→21:42)
[2017-07-30] MEDS: OXYBUTYNIN CHLORIDE 5 MG TABLET PO SCH (10:06)
[2017-07-30] MEDS: TIOTROPIUM BROMIDE 18 MCG/INH (DEVICE W/ 5 CAPSULES) IH SCH (10:06)
--- NOTE | 2017-07-30 11:50 | PN ---
Progress Note (short form) - Note Progress Note: PULMONARY AWAKE/ALERT APPEARS STABLE KNOWS MY NAME ANICTERIC/AFEBRILE DISTANT BREATH SOUNDS S1S2 RSR BS+ NO EDEMA LABS/MEDS/NOTES/CT CHEST/MICRO REVIEWED IMP ACUTE IN CHRONIC HYPOXEMIC/HYPERCAPNEIC RESPIRATORY FAILURE COPD PNEUMONIA ALTERED MENTAL STATUS JASON H/O LUNG CA S/P RESECTION H/O CHURGE MADDY ON CELLCEPT +STEROIDS DEMENTIA H/O BRACHIAL DVT PLAN ABX PER ID O2 NIPPV IF NEEDED IVF MONITOR LYTES AC CELLCEPT HELD DISCHARGE PLANNING R NANETTE SHIRLEY
--- NOTE | 2017-07-30 17:04 | PN ---
Progress Note (short form) - Note Progress Note: Subjective: no fever or chills , NO SOB Objective: Vital Signs: Last Vital Signs Temp Pulse Resp BP Pulse Ox 98.1 F 71 18 119/70 97 07/30/17 14:53 07/30/17 14:53 07/30/17 14:53 07/30/17 14:53 07/30/17 09:00 Laboratory Results - last 24 hr 07/30/17 07/30/17 07:15 07:15 WBC 13.2 H RBC 3.56 L Hgb 9.0 L Hct 30.2 L MCV 84.9 MCH 25.4 L MCHC 29.9 L RDW 19.3 H Plt Count 304 MPV 8.7 Sodium 141 Potassium 3.1 L Chloride 103 Carbon Dioxide 33 H Anion Gap 5 L BUN 15 Creatinine 0.6 Random Glucose 81 Calcium 8.2 L Phosphorus 2.1 L Magnesium 1.9 Physical Exam: NAD , knows her name, age and location . 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 -cont po abx - follow blood cx( Neg 96 hr ) 2- Acute hypercapnic resp failure. due to PNA . - cont Nebs - cont Abx 3- h/o Chrurg Eugenie, - hold mycophenolate due ot infection. will resume at dc - decrease prednisone dose 4- JASON: prerenal, resolved . dc IVF as has good oral intake 5- h/o DVT: cont xarelto could not reach family to confirm DNR/DNI dc back to rehab when Auth is obtained Visit type - Emergency Visit Emergency Visit: Yes ED Registration Date: 07/26/17 Care time: The patient presented to the Emergency Department on the above date and was hospitalized for further evaluation of their emergent condition. - New Patient This patient is new to me today: No - Critical Care Critical Care patient: No
[2017-07-30] MEDS ORDERED: predniSONE 20 MG TABLET (UD) PO SCH (17:15)
[2017-07-30] MEDS ORDERED: POTASSIUM CHLORIDE TABS 20 MEQ TABLET.ER (FP) PO ONE (17:15)
[2017-07-30] MEDS: SENNOSIDES/DOCUSATE COMBO (SENNA PLUS) TABLET (UD) PO SCH (21:42)
[2017-07-30] MEDS: ATORVASTATIN CA 10 MG TABLET (FP) PO SCH (21:42)
[2017-07-30] MEDS: DOCUSATE SODIUM 100 MG CAPSULE (FP) PO SCH (21:42)
[2017-07-30] MEDS: GABAPENTIN 300 MG CAPSULE (FP) PO SCH (21:42)
--- NOTE | 2017-07-31 06:00 | PN ---
Physical Exam: SUBJECTIVE: Patient seen and examined at bedside. No acute events over night. AAOx3 , breathing is good, right foot swelling, denies any pain , fever, chill , N/V/D/C. denies any chest pain . OBJECTIVE: Vital Signs Period Temp Pulse Resp BP Sys/Bahena Pulse Ox Last 24 Hr 97.3 F-98.1 F 71-78 18-20 119-152/70-92 97-97 GENERAL: The patient is awake, alert, and fully oriented, in no acute distress. HEAD: Normal with no signs of trauma. EYES: sclera anicteric, conjunctiva clear. ENT: moist mucous membranes. NECK: supple. LUNGS: Breath sounds equal, clear to auscultation bilaterally, no wheezes, no crackles, no accessory muscle use. HEART: Regular rate and rhythm, S1, S2, 2/6 systolic murmur 2nd RUSB, no rub or gallop. ABDOMEN: Soft, nontender, nondistended, normoactive bowel sounds, no guarding, no rebound, EXTREMITIES: 2+ pulses, warm, well-perfused, no edema. upper ext edema and echymoses . NEUROLOGICAL: no focal deficit . Normal speech, gait not observed. PSYCH: Normal mood, normal affect. SKIN: Warm, dry, Laboratory Results - last 24 hr 07/30/17 07/30/17 07:15 07:15 WBC 13.2 H RBC 3.56 L Hgb 9.0 L Hct 30.2 L MCV 84.9 MCH 25.4 L MCHC 29.9 L RDW 19.3 H Plt Count 304 MPV 8.7 Sodium 141 Potassium 3.1 L Chloride 103 Carbon Dioxide 33 H Anion Gap 5 L BUN 15 Creatinine 0.6 Random Glucose 81 Calcium 8.2 L Phosphorus 2.1 L Magnesium 1.9 Active Medications Generic Name Dose Route Start Last Admin Trade Name Freq PRN Reason Stop Dose Admin Albuterol Sulfate 1 - 2 puff 07/27/17 14:00 07/30/17 21:44 Ventolin Hfa Inhaler - IH 1 puff RQID BEVERLY Administration Albuterol/Ipratropium 1 amp 07/27/17 10:25 07/28/17 20:28 Duoneb - NEB 1 amp Q6H PRN Administration ASTHMA Amoxicillin/Clavulanate Potassium 1 tab 07/29/17 17:30 07/30/17 17:20 Augmentin - 875mg Tablet PO 1 tab BID@0800,1730 BEVERLY Administration Aspirin 81 mg 07/27/17 10:00 07/30/17 10:05 Asa - PO 81 mg DAILY BEVERLY Administration Atorvastatin Calcium 10 mg 07/26/17 22:00 07/30/17 21:42 Lipitor - PO 10 mg HS BEVERLY Administration Budesonide/Formoterol Fumarate 1 puff 07/27/17 22:00 07/30/17 21:42 Symbicort 80/4.5mcg - IH 1 puff BID BEVERLY Administration Calcium Carbonate/Cholecalciferol 1 tab 07/27/17 22:00 07/30/17 21:42 Os-Juan 500+D - PO 1 tab BID BEVERLY Administration Diltiazem HCl 240 mg 07/27/17 11:00 07/30/17 10:06 Cardizem Cd - PO 240 mg DAILY BEVERLY Administration Docusate Sodium 200 mg 07/27/17 22:00 07/30/17 21:42 Colace - PO 200 mg HS BEVERLY Administration Escitalopram Oxalate 10 mg 07/27/17 10:00 07/30/17 10:05 Lexapro - PO 10 mg DAILY BEVERLY Administration Ferrous Sulfate 325 mg 07/28/17 10:00 07/30/17 10:05 Feosol - PO 325 mg DAILY BEVERLY Administration Gabapentin 600 mg 07/26/17 22:00 07/30/17 21:42 Neurontin - PO 600 mg HS BEVERLY Administration Lactobacillus Acidophilus 1 tab 07/27/17 22:00 07/30/17 21:42 Bacid - PO 1 tab BID BEVERLY Administration Loratadine 10 mg 07/28/17 10:00 07/30/17 10:05 Claritin - PO 10 mg DAILY BEVERLY Administration Oxybutynin Chloride 5 mg 07/28/17 10:00 07/30/17 10:06 Ditropan - PO 5 mg DAILY BEVERLY Administration Polyethylene Glycol 17 gm 07/28/17 10:00 07/30/17 10:06 Miralax (For Daily Use) - PO 17 grams DAILY BEVERLY Administration Prednisone 20 mg 07/31/17 10:00 Deltasone - PO DAILY BEVERLY Rivaroxaban 20 mg 07/27/17 10:00 07/30/17 10:05 Xarelto - PO 20 mg DAILY BEVERLY Administration Senna/Docusate Sodium 2 tablet 07/27/17 22:00 07/30/17 21:42 Pericolace - PO 2 tablet HS BEVERLY Administration Tiotropium Stephens 1 puff 07/28/17 10:00 07/30/17 10:06 Spiriva - IH 1 puff DAILY BEVERLY Administration CBC, BMP 07/31/17 07:49 07/31/17 07:49 ASSESSMENT/PLAN: 87 y/o F w/PMH of CAD, COPD/asthma (on home O2 2L), alzheimer's dementia, lymphoma, lung ca, HTN, GERD, hypothyroidism, chrug-eugenie (on prednisone and mycophenolate), anxiety, PE presents to ER from [facility] (for rehab, normally lives in assisted living facility) for worsening lethargy and decreased appetite over the last 2-3 days. Admitted for sepsis secondary to possible aspiration pna vs hcap. #Acute hypercapnic respiratory failure secondary sepsis from likely aspiration pna , improving * Improving: afrebile, WBC trending down * abx transitioned to PO augmentin * Cont. IVF 75cc/hr * O2 * SYMBICORT: DOSE ON D/C SHOULD BE 160/4.5: 2 INHALATIONS BID # JASNO secondary to sepsis vs poor oral intake, resolved * Resolved # Hypernatremia likely 2/2 dehydration and low oral intake , resolved * Resolved #RUE swelling, improving - RUE duplex ultrasound negative for DVT #HTN, controlled * currently normotensive, * Continue Deltiazim 240 mg po daily #Chrug-Eugenie * decreased . predisone 40 mg po daily #Lymphoma * hold Mycophenolate 500 mg PO qd in term of infection #COPD/Asthma * Duo-nebs q6h PRN for SOB/wheezing * Pulmonary on Board #Alzheimer's dementia * continue Donepezil 10 mg po qhs, Memantine 10 mg po bid * was altered on admission , improved with hydration and abx #Anxiety * Continue Lexapro 10 mg PO qd #Hx of hypothyroidism * TSH 4.85 * continue #CAD * Continue Lipitor 10 mg po qhs #Hx of PE/DVT * Continue Xarelto 20 mg po qd #DVT ppx * on Xarelto 20 mg po qd -FEN -Dc fluids -monitor electrolytes -Puree diet # Dispo * Family denies greer, Awaiting insurance auth for their choice of NH * Anticipate discharge on Monday
[2017-07-31 08:17] LABS: BASO % 0.3 % (0-2.0); EOS % 0.1 % (0-4.5); HEMATOCRIT 32.5 % (32.4-45.2); HEMOGLOBIN 9.9 GM/dL (10.7-15.3); LYMPH % 14.7 % (8-40); MCHC 30.5 g/dl (32.0-36.0); MEAN CELL VOLUME 85.3 fl (80-96); MEAN PLT VOLUME 8.6 fl (7.5-11.1); MONO % 12.4 % (3.8-10.2); NEUT % 72.5 % (42.8-82.8); PLATELET COUNT 302 K/MM3 (134-434); RBC 3.81 M/mm3 (3.60-5.2); RDW 19.3 % (11.6-15.6); WHITE BLOOD COUNT 13.7 K/mm3 (4.0-10.0)
[2017-07-31] MEDS ORDERED: PT OWN MED DRAWER 7, Y5N ONE (08:35)
[2017-07-31 08:38] LABS: ANION GAP 5 (8-16); BLOOD UREA NITROGEN 13 mg/dL (7-18); CALCIUM 8.9 mg/dL (8.5-10.1); CHLORIDE 102 mmol/L (98-107); CO2 34 mmol/L (21-32); GLUCOSE,RANDOM 76 mg/dL (74-106); POTASSIUM 3.6 mmol/L (3.5-5.1); SODIUM 141 mmol/L (136-145)
[2017-07-31 08:41] LABS: CREATININE 0.6 mg/dL (0.55-1.02)
[2017-07-31] MEDS: AMOX TR/POT CLAV 875MG/125MG TABLETS (FP) PO SCH ×2 (08:54→17:42)
[2017-07-31] MEDS: ALBUTEROL SO4 18 GM HFA INHALER IH SCH ×3 (08:56→17:42)
[2017-07-31] MEDS: ASPIRIN 81 MG CHEWABLE TABLETS PO SCH (09:01)
[2017-07-31] MEDS: LACTOBACILLUS ACIDOPHILUS 1 EACH TAB (FP) PO SCH (09:02)
[2017-07-31] MEDS: LORATADINE 10 MG TABLET PO SCH (09:02)
[2017-07-31] MEDS: ESCITALOPRAM OXALATE 10 MG TABLET (FP) PO SCH (09:03)
[2017-07-31] MEDS: FERROUS SO4 325 MG TABLET (FP) PO SCH (09:03)
[2017-07-31] MEDS: OXYBUTYNIN CHLORIDE 5 MG TABLET PO SCH (09:03)
[2017-07-31] MEDS: CALCIUM 500MG/VIT-D 200 UNITS COMBO TABLET (FP) PO SCH (09:05)
[2017-07-31] MEDS: TIOTROPIUM BROMIDE 18 MCG/INH (DEVICE W/ 5 CAPSULES) IH SCH (09:05)
[2017-07-31] MEDS: BUDESONIDE/FORMETEROL FUMARATE 80/4.5 mcg INHALER IH SCH (09:05)
[2017-07-31] MEDS: POLYETHYLENE GLYCOL 3350 119 GM BTL PO SCH (09:05)
[2017-07-31] MEDS ORDERED: predniSONE 20 MG TABLET (UD) PO SCH (10:00)
[2017-07-31] MEDS: RIVAROXABAN 20 MG TABLET PO SCH (10:22)
--- NOTE | 2017-07-31 11:05 | PN ---
Progress Note (short form) - Note Progress Note: Resting in NAD. Denies CP or SOB. No acute events overnight. Intake & Output 07/28/17 07/29/17 07/30/17 07/31/17 23:59 23:59 23:59 23:59 Intake Total 2250 1764 1600 Output Total 1050 1050 1850 Balance 1200 714 -250 Last Vital Signs Temp Pulse Resp BP Pulse Ox 97.3 F L 71 20 152/87 97 07/31/17 05:22 07/31/17 05:22 07/31/17 05:22 07/31/17 05:22 07/30/17 20:36 Active Medications Albuterol Sulfate (Ventolin Hfa Inhaler -) 1 - 2 puff IH RQID PENDING SALE TO [facility] Last Admin: 07/31/17 08:56 Dose: 1 puff Albuterol/Ipratropium (Duoneb -) 1 amp NEB Q6H PRN PRN Reason: ASTHMA Last Admin: 07/28/17 20:28 Dose: 1 amp Amoxicillin/Clavulanate Potassium (Augmentin - 875mg Tablet) 1 tab PO BID@0800, 1730 PENDING SALE TO [facility] Last Admin: 07/31/17 08:54 Dose: 1 tab Aspirin (Asa -) 81 mg PO DAILY PENDING SALE TO [facility] Last Admin: 07/31/17 09:01 Dose: 81 mg Atorvastatin Calcium (Lipitor -) 10 mg PO HS PENDING SALE TO [facility] Last Admin: 07/30/17 21:42 Dose: 10 mg Budesonide/Formoterol Fumarate (Symbicort 80/4.5mcg -) 1 puff IH BID PENDING SALE TO [facility] Last Admin: 07/31/17 09:05 Dose: 1 puff Calcium Carbonate/Cholecalciferol (Os-Juan 500+D -) 1 tab PO BID PENDING SALE TO [facility] Last Admin: 07/31/17 09:05 Dose: 1 tab Diltiazem HCl (Cardizem Cd -) 240 mg PO DAILY PENDING SALE TO [facility] Last Admin: 07/31/17 09:08 Dose: 240 mg Docusate Sodium (Colace -) 200 mg PO HS PENDING SALE TO [facility] Last Admin: 07/30/17 21:42 Dose: 200 mg Escitalopram Oxalate (Lexapro -) 10 mg PO DAILY PENDING SALE TO [facility] Last Admin: 07/31/17 09:03 Dose: 10 mg Ferrous Sulfate (Feosol -) 325 mg PO DAILY PENDING SALE TO [facility] Last Admin: 07/31/17 09:03 Dose: 325 mg Gabapentin (Neurontin -) 600 mg PO HS PENDING SALE TO [facility] Last Admin: 07/30/17 21:42 Dose: 600 mg Lactobacillus Acidophilus (Bacid -) 1 tab PO BID PENDING SALE TO [facility] Last Admin: 07/31/17 09:02 Dose: 1 tab Loratadine (Claritin -) 10 mg PO DAILY PENDING SALE TO [facility] Last Admin: 07/31/17 09:02 Dose: 10 mg Oxybutynin Chloride (Ditropan -) 5 mg PO DAILY PENDING SALE TO [facility] Last Admin: 07/31/17 09:03 Dose: 5 mg Polyethylene Glycol (Miralax (For Daily Use) -) 17 gm PO DAILY PENDING SALE TO [facility] Last Admin: 07/31/17 09:05 Dose: 17 grams Prednisone (Deltasone -) 20 mg PO DAILY PENDING SALE TO [facility] Last Admin: 07/31/17 09:03 Dose: 20 mg Rivaroxaban (Xarelto -) 20 mg PO DAILY PENDING SALE TO [facility] Last Admin: 07/31/17 10:22 Dose: 20 mg Senna/Docusate Sodium (Pericolace -) 2 tablet PO HS PENDING SALE TO [facility] Last Admin: 07/30/17 21:42 Dose: 2 tablet Tiotropium Sedan (Spiriva -) 1 puff IH DAILY PENDING SALE TO [facility] Last Admin: 07/31/17 09:05 Dose: 1 puff GENERAL: awake, alert, oriented, no acute distress. HEAD: Normal with no signs of trauma. EYES: sclera anicteric, conjunctiva clear. ENT: moist mucous membranes. NECK: supple. LUNGS: few scattered rhonchi, No wheeze HEART: S1, S2, (+) ESM ABDOMEN: Soft, nontender, nondistended, normoactive bowel sounds, no guarding, no rebound EXTREMITIES: 2+ pulses, warm, well-perfused, no edema. upper ext edema and echymoses . NEUROLOGICAL: no focal deficit. SKIN: Warm, dry Laboratory Results - last 24 hr 07/31/17 07/31/17 07:49 07:49 WBC 13.7 H RBC 3.81 Hgb 9.9 L Hct 32.5 MCV 85.3 MCH 26.0 MCHC 30.5 L RDW 19.3 H Plt Count 302 MPV 8.6 Neutrophils % 72.5 Lymphocytes % 14.7 Monocytes % 12.4 H Eosinophils % 0.1 Basophils % 0.3 Sodium 141 Potassium 3.6 Chloride 102 Carbon Dioxide 34 H Anion Gap 5 L BUN 13 Creatinine 0.6 Random Glucose 76 Calcium 8.9 IMP ACUTE IN CHRONIC HYPOXEMIC/HYPERCAPNEIC RESPIRATORY FAILURE COPD PNEUMONIA ALTERED MENTAL STATUS JASON H/O LUNG CA S/P RESECTION H/O CHURGE MADDY ON CELLCEPT +STEROIDS DEMENTIA H/O BRACHIAL DVT PLAN AUGMENTIN O2 SYMBICORT: DOSE ON D/C SHOULD BE 160/4.5: 2 INHALATIONS BID DISCHARGE PLANNING DR COYNE
[2017-07-31 15:46] VITALS: BP 153/76; PULSE 82; TEMP 98.1
--- NOTE | 2017-07-31 16:02 | PN ---
Teaching Attending Note Name of Resident: Chidi Maguire ATTENDING PHYSICIAN STATEMENT I saw and evaluated the patient. I reviewed the resident's note and discussed the case with the resident. I agree with the resident's findings and plan as documented. SUBJECTIVE: OBJECTIVE: ASSESSMENT AND PLAN:
--- NOTE | 2017-07-31 16:17 | PN ---
Teaching Attending Note Name of Resident: Chidi Maguire ATTENDING PHYSICIAN STATEMENT I saw and evaluated the patient. I reviewed the resident's note and discussed the case with the resident. I agree with the resident's findings and plan as documented. SUBJECTIVE: No fever or chills. has no pain. OBJECTIVE: NAD, knows her name, age and location. CV: RRR, 2/6 SM at RUSB Lungs: bibasilar crackles ext: no edema Assessment/Plan: 87 y/o lady with h/o CAD, COPD on home O2 and prednisone, Alzheimer's dementia , HTN, HLD, GERD, hypothyroidism, Churg Eugenie on mycophenalate, Anxiety, depression,and DVT on xarelto , recent admission for PNA and influenza who presented with resp distress wand was found to have sepsis 1-Sepsis: could be due to aspiration PNA. -cont po abx -neg blood cx x 5 dyas 2- Acute hypercapnic resp failure. due to PNA . - cont Nebs and inhalers - cont Abx 3- h/o Chrurg Eugenie, - resume mycophenolate - cont home dose prednisione 20 mg daily 4- JASON: prerenal, resolved . 5- h/o DVT: cont xarelto 6- Urinary retention at admission. pepe removed and pt urinated . dc back to rehab
--- NOTE | 2017-07-31 17:54 | DS ---
Physical Exam: SUBJECTIVE: Patient seen and examined OBJECTIVE: Vital Signs Period Temp Pulse Resp BP Sys/Bahena Pulse Ox Last 24 Hr 97.3 F-98.1 F 71-82 18-20 129-153/75-87 97-98 PHYSICAL EXAM GENERAL: The patient is awake, alert, and fully oriented, in no acute distress. HEAD: Normal with no signs of trauma. EYES: sclera anicteric, conjunctiva clear. ENT: moist mucous membranes. NECK: supple. LUNGS: Breath sounds equal, clear to auscultation bilaterally, no wheezes, no crackles, no accessory muscle use. HEART: Regular rate and rhythm, S1, S2, 2/6 systolic murmur 2nd RUSB, no rub or gallop. ABDOMEN: Soft, nontender, nondistended, normoactive bowel sounds, no guarding, no rebound, EXTREMITIES: 2+ pulses, warm, well-perfused, no edema. upper ext edema and echymoses . NEUROLOGICAL: no focal deficit . Normal speech, gait not observed. PSYCH: Normal mood, normal affect. SKIN: Warm, dry, LABS Laboratory Results - last 24 hr 07/31/17 07/31/17 07:49 07:49 WBC 13.7 H RBC 3.81 Hgb 9.9 L Hct 32.5 MCV 85.3 MCH 26.0 MCHC 30.5 L RDW 19.3 H Plt Count 302 MPV 8.6 Neutrophils % 72.5 Lymphocytes % 14.7 Monocytes % 12.4 H Eosinophils % 0.1 Basophils % 0.3 Sodium 141 Potassium 3.6 Chloride 102 Carbon Dioxide 34 H Anion Gap 5 L BUN 13 Creatinine 0.6 Random Glucose 76 Calcium 8.9 Active Medications Generic Name Dose Route Start Last Admin Trade Name Freq PRN Reason Stop Dose Admin Albuterol Sulfate 1 - 2 puff 07/27/17 14:00 07/31/17 17:42 Ventolin Hfa Inhaler - IH 1 puff RQID BEVERLY Administration Albuterol/Ipratropium 1 amp 07/27/17 10:25 07/28/17 20:28 Duoneb - NEB 1 amp Q6H PRN Administration ASTHMA Amoxicillin/Clavulanate Potassium 1 tab 07/29/17 17:30 07/31/17 17:42 Augmentin - 875mg Tablet PO 1 tab BID@0800,1730 BEVERLY Administration Aspirin 81 mg 07/27/17 10:00 07/31/17 09:01 Asa - PO 81 mg DAILY BEVERLY Administration Atorvastatin Calcium 10 mg 07/26/17 22:00 07/30/17 21:42 Lipitor - PO 10 mg HS BEVERLY Administration Budesonide/Formoterol Fumarate 1 puff 07/27/17 22:00 07/31/17 09:05 Symbicort 80/4.5mcg - IH 1 puff BID BEVERLY Administration Calcium Carbonate/Cholecalciferol 1 tab 07/27/17 22:00 07/31/17 09:05 Os-Juan 500+D - PO 1 tab BID BEVERLY Administration Diltiazem HCl 240 mg 07/27/17 11:00 07/31/17 09:08 Cardizem Cd - PO 240 mg DAILY BEVERLY Administration Docusate Sodium 200 mg 07/27/17 22:00 07/30/17 21:42 Colace - PO 200 mg HS BEVERLY Administration Escitalopram Oxalate 10 mg 07/27/17 10:00 07/31/17 09:03 Lexapro - PO 10 mg DAILY BEVERLY Administration Ferrous Sulfate 325 mg 07/28/17 10:00 07/31/17 09:03 Feosol - PO 325 mg DAILY BEVERLY Administration Gabapentin 600 mg 07/26/17 22:00 07/30/17 21:42 Neurontin - PO 600 mg HS BEVERLY Administration Lactobacillus Acidophilus 1 tab 07/27/17 22:00 07/31/17 09:02 Bacid - PO 1 tab BID BEVERLY Administration Loratadine 10 mg 07/28/17 10:00 07/31/17 09:02 Claritin - PO 10 mg DAILY BEVERLY Administration Oxybutynin Chloride 5 mg 07/28/17 10:00 07/31/17 09:03 Ditropan - PO 5 mg DAILY BEVERLY Administration Polyethylene Glycol 17 gm 07/28/17 10:00 07/31/17 09:05 Miralax (For Daily Use) - PO 17 grams DAILY BEVERLY Administration Prednisone 20 mg 07/31/17 10:00 07/31/17 09:03 Deltasone - PO 20 mg DAILY BEVERLY Administration Rivaroxaban 20 mg 07/27/17 10:00 07/31/17 10:22 Xarelto - PO 20 mg DAILY BEVERLY Administration Senna/Docusate Sodium 2 tablet 07/27/17 22:00 07/30/17 21:42 Pericolace - PO 2 tablet HS BEVERLY Administration Tiotropium Wren 1 puff 07/28/17 10:00 07/31/17 09:05 Spiriva - IH 1 puff DAILY BEVERLY Administration CBC, BMP 07/31/17 07:49 07/31/17 07:49 Microbiology 07/26/17 11:12 Blood - Peripheral Venous Blood Culture - Final NO GROWTH AFTER 5 DAYS INCUBATION 07/26/17 11:12 Blood - Peripheral Venous Blood Culture - Final NO GROWTH AFTER 5 DAYS INCUBATION 07/26/17 16:25 Urine For Antigen Detection Legionella Antigen - Final 07/26/17 16:25 Urine For Antigen Detection Streptococcus pneumoniae Antigen (M - Final 07/26/17 11:12 Urine - Urine Montiel Urine Culture - Final NO GROWTH OBTAINED 07/26/17 Unknown Nasopharyngeal Swab Influenza Types A,B Antigen (NATHAN) - Final 07/26/17 Unknown Nasopharyngeal Swab - Final Urine cx negative Legionella AG, Stertoccocus pneumonia ag negative 07/26/17 : Douplex Upper Ext : negative for DVT CXR 07/26 no acute process, 07/27 : chronic minimal bibasilar atelectasis. CT chest 07/27/2015: Negative for pneumonia or acute process, some chronic changes post surgical scars. HOSPITAL COURSE: Date of Admission:07/26/17 Date of Discharge: 07/31/17 Ms Carter is a 87 y/o F w/PMH of CAD, COPD/asthma (on home O2 2L), alzheimer' s dementia, lymphoma, lung ca, HTN, GERD, hypothyroidism, chrug-eugenie (on prednisone and mycophenolate), anxiety, PE presents to ER from [facility] (for rehab, normally lives in assisted living facility) for worsening lethargy and decreased appetite over the last 2-3 days. Admitted for sepsis secondary to possible aspiration pna vs hcap. for Acute hypercapnic respiratory failure secondary to sepsis from likely aspiration pna , improvedon day of dc pat is afrebile, WBC trending down, abx transitioned to PO augmentin, continue with 02 and, SYMBICORT: DOSE ON D/C SHOULD BE 160/4.5: 2 INHALATIONS BID pt had JASON secondary to sepsis vs poor oral intake, resolved. pt had Hypernatremia likely 2/2 dehydration and low oral intake , resolved with iv fluids. pt had RUE swelling on admission , improving , RUE duplex ultrasound negative for DVT.for HTN, controlled on Deltiazim 240 mg po daily. in term of Chrug-Eugenie treated with predisone 40 mg po daily and decreased uppon dc to home dose of 20 mg po daily. in terom of Lymphoma, Mycophenolate 500 mg PO qd was held in term of infection , continue after discharged. pt has a hx of COPD/Asthma improved on Duo-nebs q6h PRN for SOB/ wheezingPulmonary was consulted and she will be discharge also on SYMBICORT 160/4.5: 2 INHALATIONS BID.for Alzheimer's dementia,continue Donepezil 10 mg po qhs, Memantine 10 mg po bid,was altered on admission , improved with hydration and abx .for AnxietyContinue Lexapro 10 mg PO qd.pt has Hx of hypothyroidism,TSH 4.85 ,no on any meds. pt has a hx of CAD,Continue Lipitor 10 mg po qhs.pt has a h Hx of PE/DVT,Continue Xarelto 20 mg po qd.In term of diet she needs to be on Puree diet with thick liquid due to dysphagia precaution at risk of aspiration.Family williies Estefany, will be send to [facility]. , Minutes to complete discharge: 40 Discharge Summary Reason For Visit: LETHARGY Condition: Improved - Instructions Diet, Activity, Other Instructions: You were admitted to the hospital due to sepsis likely from aspiration pneumonia. You were treated with antibiotics, fluids and steroids and your illness has resolved. You are now in stable condition to be discharged back to [facility]. Please resume taking all your home medications. You will need to take Augmentin (antibiotics) 875mg by mouth twice a day for 3.5 more days with food. Your symbicort inhaler dose has increased, please start using the new inhaler with stronger dose. Please follow fall precautions , avoid sudden standing , take your time when you get out opf bed , avoid getting up if you have lightheadedness. Please follow aspiration precautions (raise the head of the bed, avoid eating and laying down , avoid drinking while laying down ) Please keep your self hydrated , drink enough fluids Please eat dysphagia Pureed diet with thick liquid as prescribed. Please follow up with Dr. Mehta your primary doctor with 2 weeks. If you experience acute shortness of breath, call 911 or come to the nearest ER. Referrals: Kurt Mehta MD [Primary Care Provider] - 2 Weeks Disposition: [facility] - Home Medications Comprehensive Discharge Medication List: Ambulatory Orders Acetaminophen [Mapap] 650 mg PO QID PRN 06/09/17 Albuterol Sulfate [Proventil HFA Inhaler -] 1 - 2 inh PO QID 06/09/17 Aspirin [ASA -] 81 mg PO DAILY 06/09/17 Atorvastatin Ca [Lipitor] 10 mg PO HS 06/09/17 Calcium Carbonate/Vitamin D3 [Oyster Shell 500-Vit D3 200 Tb] 1 each PO BID 02/16 Diltiazem Cd [Cardizem Cd -] 240 mg PO DAILY 06/09/17 Docusate Sodium [Colace -] 200 mg PO HS 06/09/17 Donepezil HCl [Aricept] 10 mg PO HS 06/09/17 Escitalopram Oxalate [Lexapro -] 10 mg PO DAILY 06/09/17 Ferrous Sulfate 325 mg PO DAILY 06/09/17 Gabapentin 600 mg PO HS 06/09/17 Loratadine 10 mg PO DAILY 06/09/17 Memantine HCl [Namenda -] 10 mg PO BID 06/09/17 Mycophenolate Mofetil [Cellcept] 500 mg PO DAILY 06/09/17 Oxybutynin Chloride 5 mg PO DAILY 06/09/17 Polyethylene Glycol 3350 [Miralax 119 gm Btl -] 17 gm PO DAILY 06/09/17 Rivaroxaban [Xarelto -] 20 mg PO DAILY 06/09/17 Sennosides/Docusate Sodium [Senna Laxative Tablet] 2 each PO HS 06/09/17 Tiotropium Wren [Spiriva] 1 inh PO DAILY 06/09/17 L. Acidophilus/Pectin, [place] [Acidophilus Capsule] 1 each PO BID 07/16/17 Prednisone [Deltasone -] 20 mg PO DAILY #30 tablet 07/20/17 Albuterol 0.083% Nebulizer Machelle [Ventolin 0.083% Nebulizer Soln -] 1 neb NEB Q6H PRN #1 vial 07/31/17 Amoxicillin/Potassium Clav [Augmentin 875-125 Tablet] 1 each PO BID #10 tablet 07/31/17 Budesonide/Formeterol Fumarate [SYMBICORT 160/4.5mcg -] 1 inh IH BID #1 inhaler 07/31/17 This patient is new to me today: No Emergency Visit: Yes ED Registration Date: 07/26/17 Care time: The patient presented to the Emergency Department on the above date and was hospitalized for further evaluation of their emergent condition. Critical Care patient: No - Discharge Referral Referred to [facility] Med P.C.: No
--- NOTE | 2017-07-31 17:56 | PN ---
Progress Note, STUDENT AMBASSADOR - Note Progress Note: 87 yo seen as a follow up and MBS for possible diet upgrade . Pt was able to tolerate pureed and soft chewable solids with thin liquids without aspiration during the procedure. Esophageal study was limited and unremarkable. Will recommend diet upgrade from puree to mechanical soft, ground solids and thin liquids. Results given to hemodialysis charge nurse and to pcp via chart. STUDENT AMBASSADOR to follow up for diet tolerance.
== END 2017-07-31 18:12 | DRG 871 ==
LOC: JER 10:37 → JERBED 16:11 → J6S 23:13
PROVIDERS: ADMIT Internal Medicine; ATTEND Internal Medicine
DX: A41.9 Sepsis, unspecified organism (principal); J69.0 Pneumonitis due to inhalation of food and vomit; J96.21 Acute and chronic respiratory failure with hypoxia; J96.22 Acute and chronic respiratory failure with hypercapnia; G92 Toxic encephalopathy; N17.9 Acute kidney failure, unspecified; C85.90 Non-Hodgkin lymphoma, unspecified, unspecified site; E87.0 Hyperosmolality and hypernatremia; I10 Essential (primary) hypertension; J44.9 Chronic obstructive pulmonary disease, unspecified; J45.909 Unspecified asthma, uncomplicated; G30.9 Alzheimer's disease, unspecified; F02.80 Dementia in other diseases classified elsewhere, unspecified severity, without behavioral disturbance, psychotic disturbance, mood disturbance, and anxiety; E03.9 Hypothyroidism, unspecified; I25.10 Atherosclerotic heart disease of native coronary artery without angina pectoris; E78.5 Hyperlipidemia, unspecified; K21.9 Gastro-esophageal reflux disease without esophagitis; E86.0 Dehydration; F41.8 Other specified anxiety disorders; R33.9 Retention of urine, unspecified; R41.82 Altered mental status, unspecified; D72.829 Elevated white blood cell count, unspecified; Z85.118 Personal history of other malignant neoplasm of bronchus and lung
CPT/HCPCS: 36415; 36600; 71045-TC; 71250-TC; 74230-TC; 80048; 80053; 81003; 81015; 82550; 82570; 82803; 82962; 83605; 83735; 84100; 84300; 84443; 84484; 85025; 85027; 85610; 85730; 86850; 86900; 86901; 87040; 87086; 87804; 87899; 92611-GN; 93005; 93010; 93971; 94640; 97161-GP; 99285-25

== ENCOUNTER 2017-08-27 19:26 | Emergency (ER) | payer OTHER ==
--- NOTE | 2017-08-27 19:35 | PDOC ---
History of Present Illness - General Stated Complaint: UNRESPONSIVE Time Seen by Provider: 08/27/17 19:32 History Source: EMS Exam Limitations: Clinical Condition - History of Present Illness Initial Comments: 87 yo F history COPD, HTN, HL, anemia presents with AMS, hypoxia, sent by [facility] for O2Sat 76%. Pt unresponsive on arrival. As per EMS, she had pulses when they arrived, they gave supplemental O2 via BVM. Patient pulseless on ED arrival, no spontaneous respirations. Past History - Past Medical History Allergies/Adverse Reactions: Allergies Allergy/AdvReac Type Severity Reaction Status Date / Time levofloxacin [From Levaquin] Allergy Unknown Itching Verified 08/27/17 19:46 Home Medications: Ambulatory Orders Acetaminophen [Mapap] 650 mg PO QID PRN 06/09/17 Albuterol Sulfate [Proventil HFA Inhaler -] 1 - 2 inh PO QID 06/09/17 Aspirin [ASA -] 81 mg PO DAILY 06/09/17 Atorvastatin Ca [Lipitor] 10 mg PO HS 06/09/17 Calcium Carbonate/Vitamin D3 [Oyster Shell 500-Vit D3 200 Tb] 1 each PO BID 02/16 Diltiazem Cd [Cardizem Cd -] 240 mg PO DAILY 06/09/17 Docusate Sodium [Colace -] 200 mg PO HS 06/09/17 Donepezil HCl [Aricept] 10 mg PO HS 06/09/17 Escitalopram Oxalate [Lexapro -] 10 mg PO DAILY 06/09/17 Ferrous Sulfate 325 mg PO DAILY 06/09/17 Gabapentin 600 mg PO HS 06/09/17 Loratadine 10 mg PO DAILY 06/09/17 Memantine HCl [Namenda -] 10 mg PO BID 06/09/17 Mycophenolate Mofetil [Cellcept] 500 mg PO DAILY 06/09/17 Oxybutynin Chloride 5 mg PO DAILY 06/09/17 Polyethylene Glycol 3350 [Miralax 119 gm Btl -] 17 gm PO DAILY 06/09/17 Rivaroxaban [Xarelto -] 20 mg PO DAILY 06/09/17 Sennosides/Docusate Sodium [Senna Laxative Tablet] 2 each PO HS 06/09/17 Tiotropium [place] [Spiriva] 1 inh PO DAILY 06/09/17 L. Acidophilus/Pectin, [place] [Acidophilus Capsule] 1 each PO BID 07/16/17 predniSONE [Deltasone -] 20 mg PO DAILY #30 tablet 07/20/17 Albuterol 0.083% Nebulizer [place] [Ventolin 0.083% Nebulizer Soln -] 1 neb NEB Q6H PRN #1 vial 07/31/17 Amoxicillin/Potassium Clav [Augmentin 875-125 Tablet] 1 each PO BID #10 tablet 07/31/17 Budesonide/Formeterol Fumarate [SYMBICORT 160/4.5mcg -] 1 inh IH BID #1 inhaler 07/31/17 Anemia: No Asthma: Yes Cancer: Yes (NON HODGKINS LYMPHOMA,) Cardiac Disorders: (AFIB) CVA: No COPD: Yes CHF: No Dementia: Yes GI Disorders: Yes (GERD) Disorders: Yes (BLADDER DROP) HTN: Yes Hypercholesterolemia: Yes 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, anxiety) Thyroid Disease: Yes (hypothyroid) - Surgical History Lung Surgery: Yes - Immunization History Td Vaccination: (unknown) Immunization Up to Date: Yes - Suicide/Smoking/Psychosocial Hx Smoking Status: No Smoking History: Unknown if ever smoked Years of Tobacco Use: 40 Have you smoked in the past 12 months: No Number of Cigarettes Smoked Daily: 0 If you are a former smoker, when did you quit?: 45 years ago Cigars Per Day: 0 Hx Alcohol Use: No Drug/Substance Use Hx: No Substance Use Type: None Hx Substance Use Treatment: No Review of Systems - Review of Systems Able to Perform ROS?: No (unresponsive) *Physical Exam - Physical Exam Comments: GENERAL: Unresponsive, EMS giving supplemental O2 via BVM HEAD: No signs of trauma EYES: Pupils pinpoint and sluggish, EOMI, sclera anicteric, conjunctiva clear ENT: Auricles normal inspection, hearing grossly normal, nares patent, oropharynx clear without exudates. Dry mucosa NECK: Normal ROM, supple, no lymphadenopathy, JVD, or masses LUNGS: Dec air entry B/L. HEART: Distant heart sounds. No murmurs appreciated. ABDOMEN: Soft, normoactive bowel sounds. No guarding, no rebound. No masses EXTREMITIES: Normal range of motion, no edema. No clubbing or cyanosis. No cords, erythema. NEUROLOGICAL: Unresponsive. SKIN: Warm, Dry, normal turgor, no rashes or lesions noted. Medical Decision Making - Medical Decision Making 08/27/17 19:53 Late entry. Patient sent by [facility] for low O2Sat 76%. She has history COPD, last set of labs from [facility] with significant leukocytosis. She was noted to be hypotensive, hypothermic, and bradycardic on EMS arrival. She had pulses at the time but she was breathing at 12 breaths per minute. They used BVM en route. Patient was pulseless on ED arrival, minimal cardiac activity on initial sono, then approximatley 5 minutes later she had cardiac standstill. She was transported with a DNR/DNI, further attempts at resuscitation were aborted, as they were deemed futile. Time of 19:32 Daughter, Courtney, was called on patient arrival, then notified at 19:43. MI release #[id number], discussed with investigator fraud Ti. *DC/Admit/Observation/Transfer Diagnosis at time of Disposition: in hospital-based emergency department Sepsis Qualifiers: Sepsis type: sepsis due to unspecified organism Qualified Code(s): A41.9 - Sepsis, unspecified organism Respiratory failure Qualifiers: Chronicity: acute on chronic Respiratory failure complication: unspecified whether with hypoxia or hypercapnia Qualified Code(s): J96.20 - Acute and chronic respiratory failure, unspecified whether with hypoxia or hypercapnia - Discharge Dispostion Disposition: Condition at time of disposition: Admit: No - Referrals Referrals: Terry Alamo MD [Primary Care Provider] - - Patient Instructions - Post Discharge Activity
[2017-08-27 19:46] VITALS: BP 35/00; PULSE 0; TEMP 0; BMI 23.9
== END 2017-08-27 22:16 | disposition expired ==
LOC: JER 19:26 → SUPCPDRO 19:26 → JER 22:15
DX: I46.9 Cardiac arrest, cause unspecified (principal); J96.20 Acute and chronic respiratory failure, unspecified whether with hypoxia or hypercapnia; A41.9 Sepsis, unspecified organism; I48.91 Unspecified atrial fibrillation; Z79.01 Long term (current) use of anticoagulants; I10 Essential (primary) hypertension; J44.9 Chronic obstructive pulmonary disease, unspecified; E78.5 Hyperlipidemia, unspecified; D64.9 Anemia, unspecified; E03.9 Hypothyroidism, unspecified; F33.9 Major depressive disorder, recurrent, unspecified; F41.9 Anxiety disorder, unspecified; Z85.71 Personal history of Hodgkin lymphoma
CPT/HCPCS: 99281-25